=== PATIENT | female | born 1970 | race Caucasian/White ===

== ENCOUNTER 2017-12-02 21:30 | Emergency (ER) | payer OTHER, SELFPAY ==
[2017-12-02 21:31] VITALS: BP 116/80; PULSE 85; RESP 15; TEMP 36.4; BMI 37.2
[2017-12-02 21:52] LABS: Bacteria 0 SEEN /hpf (None Seen); Mucous, Urine 0 SEEN /hpf (<or=2+); Red Blood Cells-Urine 0 SEEN /hpf (0-5); White Blood Cells 0 SEEN /hpf (0-5)
[2017-12-02 21:53] LABS: Color, Urine Straw (Yellow); Glucose, Dipstick Normal (Normal); Ketone-Dipstick Negative (Negative); Leukocyte Esterase-Dipstick 100 /ul (Negative); Nitrite-Dipstick Negative (Negative); Occult Blood-Urine Negative /ul (Negative); Protein-Dipstick Negative (Negative); Urine Bilirubin Dipstick Negative (Negative); Urine Clarity Clear (Clear); Urine Urobilinogen Normal (Normal)
[2017-12-02 22:00] LABS: Squamous Epithelial Cells - UA 0-5 SEEN /hpf (5-10)
[2017-12-02] MEDS: Ondansetron 4 MG/2 ML Vial IV (22:26)
[2017-12-02] MEDS: Ketorolac 30 MG/ML Syringe IV (22:26)
[2017-12-02] MEDS: HYDROmorphone 1 MG/ML Syringe IV (22:29)
--- NOTE | 2017-12-02 23:27 | ED.VISSUMM ---
- ER Visit Summary Date of Service: 12/02/17 Chief Complaint: Left lower back pain located near the posterior iliac spine History of Present Illness: The patient is a 47 F who presents with acute right lower quadrant bowel pain. Upon further questioning she has had mild symptoms for a couple of days. Her and she have been been doing renovation. Today they were scraped on linoleum. She denies any bowel, bladder symptoms. She denies saddle anesthesia or paresthesia. She denies any radicular pain. She denies foot drop. She denies weakness in her thigh muscles. There is no history of direct trauma. Patient denies any fever, chills or night sweats. She denies dysuria, frequency, urgency or hematuria. There is no history of renal ureterolithiasis. She has not noted a rash. She has no contraindication to anti-inflammatory agents. 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 She denies lifting pushing or doing anything strenuous at work. Physical Examination: Patient is a pleasant middle-aged woman who appears uncomfortable. Vital signs are normal and she is afebrile. HEENT exam is unremarkable. Heart is regular without murmur, gallop or rub. S1 and S2 are normal. Lungs are clear to auscultation with good movement of air bilaterally. Abdomen is remarkable for suprapubic discomfort. There is no guarding or rebound tenderness. Well-healed surgical scar secondary to and hysterectomy. Hysterectomy secondary to abnormal vaginal bleeding. There is no CVA tenderness. She has pain palpation near the posterior aspect of the left ilium. Movement i.e. flexion, extension and rotation causes her discomfort. Straightening her legs causes her significant discomfort. Straight leg test is is negative on the right with a negative crossover test. She complains of pain at 10? with elevation of the left lower extremity. Patella and ankle reflexes are 3+ and symmetric. PT and DP pulses are palpable. EHL is intact. There is no clonus or Babinski sign noted. Sensation is normal. Test Results: UA macro was positive for leukoesterase with 0 WBCs, 0 RBCs and 0 bacteria on microscopic analysis. Emergency Department Course and Treatment: IV was established and she was treated with 1 mg of Dilaudid, 30 mg of Toradol and 4 mg of Zofran for reported nausea to opiates. Morphine was not used and she complains of itching. Treatment Plan: Discharge with appropriate home-going instructions for low back pain or muscle skeletal etiology Disposition: Discharge to home with in stable and improved condition Impression: Acute left lower back pain without sciatica initial encounter This note was generated with Jovie dictation software. It may contain incorrect words, spelling, and punctuation that were not noted in review of the chart prior to signing ED Disposition - Plan for ED Patient: Disposition: Home or Assisted Living Chief Complaint: Flank Pain Instructions: ED Exercises Lumbar Muscles Prescriptions: Hydrocodone Bitart/Apap 5-325 [[place] 5MG-325MG] 1 tab PO Q6H PRN PRN 3 Days #10 tab PRN Reason: Pain Referrals: Tequila Lujan MD [Primary Care Provider] - 1 Week if not improving Additional Instructions: Apply ice 6-8 times a day 20-30 minutes at a time for the next 2-3 days. Take either 4 Advil every 8 hours or 2 Aleve every 12 hours for the next 3-5 days for pain control. Heat will make your pain worse.
--- NOTE | 2017-12-02 23:35 | ED.DCSUM_ITS ---
- ER Visit Summary Date of Service: 12/02/17 Chief Complaint: Left lower back pain located near the posterior iliac spine History of Present Illness: The patient is a 47 F who presents with acute right lower quadrant bowel pain. Upon further questioning she has had mild symptoms for a couple of days. Her and she have been been doing renovation. Today they were scraped on linoleum. She denies any bowel, bladder symptoms. She denies saddle anesthesia or paresthesia. She denies any radicular pain. She denies foot drop. She denies weakness in her thigh muscles. There is no history of direct trauma. Patient denies any fever, chills or night sweats. She denies dysuria, frequency , urgency or hematuria. There is no history of renal ureterolithiasis. She has not noted a rash. She has no contraindication to anti-inflammatory agents. 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 She denies lifting pushing or doing anything strenuous at work. Physical Examination: Patient is a pleasant middle-aged woman who appears uncomfortable. Vital signs are normal and she is afebrile. HEENT exam is unremarkable. Heart is regular without murmur, gallop or rub. S1 and S2 are normal. Lungs are clear to auscultation with good movement of air bilaterally. Abdomen is remarkable for suprapubic discomfort. There is no guarding or rebound tenderness. Well-healed surgical scar secondary to and hysterectomy. Hysterectomy secondary to abnormal vaginal bleeding. There is no CVA tenderness. She has pain palpation near the posterior aspect of the left ilium. Movement i.e. flexion, extension and rotation causes her discomfort. Straightening her legs causes her significant discomfort. Straight leg test is is negative on the right with a negative crossover test. She complains of pain at 10? with elevation of the left lower extremity. Patella and ankle reflexes are 3+ and symmetric. PT and DP pulses are palpable. EHL is intact. There is no clonus or Babinski sign noted. Sensation is normal. Test Results: UA macro was positive for leukoesterase with 0 WBCs, 0 RBCs and 0 bacteria on microscopic analysis. Emergency Department Course and Treatment: IV was established and she was treated with 1 mg of Dilaudid, 30 mg of Toradol and 4 mg of Zofran for reported nausea to opiates. Morphine was not used and she complains of itching. Treatment Plan: Discharge with appropriate home-going instructions for low back pain or muscle skeletal etiology Disposition: Discharge to home with in stable and improved condition Impression: Acute left lower back pain without sciatica initial encounter This note was generated with [employer] dictation software. It may contain incorrect words, spelling, and punctuation that were not noted in review of the chart prior to signing ED Disposition - Plan for ED Patient: Disposition: Home or Assisted Living Chief Complaint: Flank Pain Instructions: ED Exercises Lumbar Muscles Prescriptions: Hydrocodone Bitart/Apap 5-325 [[place] 5MG-325MG] 1 tab PO Q6H PRN PRN 3 Days #10 tab PRN Reason: Pain Referrals: Tequila Lujan MD [Primary Care Provider] - 1 Week if not improving Additional Instructions: Apply ice 6-8 times a day 20-30 minutes at a time for the next 2-3 days. Take either 4 Advil every 8 hours or 2 Aleve every 12 hours for the next 3-5 days for pain control. Heat will make your pain worse.
[2017-12-02 23:36] VITALS: BP 118/89; PULSE 85; RESP 16; O2SAT 95
--- NOTE | 2017-12-02 23:49 | ED.RN ---
REVIEWED D/C INSTRUCTIONS, FOLLOW UP CARE, PRESCRIPTION, AND S/S THAT WOULD WARRANT A RETURN TO THE ED WITH PT. PT VERBALIZED AN UNDERSTANDING AND DENIES FURTHER QUESTIONS FOR THIS RN. PT SKIN P/W/D, RESP EVEN AND UNLABORED, PT A&O X 3, NO DISTRESS NOTED. PT AMBULATED OUT OF ED, GAIT STEADY.
== END 2017-12-02 23:50 | disposition home or self-care (01) ==
PROVIDERS: Emergency Provider Emergency Medicine; Family Provider Family Medicine; PCP Family Medicine
DX: M54.5 Low back pain (principal); R11.0 Nausea; Z90.710 Acquired absence of both cervix and uterus
CPT/HCPCS: 81001; 96374; 96375; 99283; A4216; J2405

== ENCOUNTER → 2017-12-03 15:29 | Outpatient (CLI) | payer OTHER, SELFPAY ==
--- NOTE | 2017-12-03 15:38 | CT_ITS ---
STUDY: CT ABDOMEN AND PELVIS WITHOUT CONTRAST REASON FOR EXAM: Female, 47 years old. Left flank pain for 4 days. Prior history of right parotid cancer, left anterior trigeminal neuralgia, hysterectomy and back surgery. RADIATION DOSAGE (If Supplied By Facility): CTDIvol = ( 22.88 ) mGy, DLP = ( 1149.16 ) mGycm TECHNIQUE: Transaxial images were obtained from the dome of the diaphragm to the symphysis pubis without oral contrast, and without intravenous contrast. Sagittal and coronal images were reconstructed. Individualized dose optimization techniques were used for this CT. COMPARISON: None. FINDINGS: Minimal bibasilar linear opacities in small areas of pleural thickening most likely chronic in nature. Negative for major consolidation or pleural effusion. The visualized portions of the heart are within normal limits. Normal liver. Normal gallbladder and extrahepatic biliary system. Normal spleen. Normal pancreas. Normal bilateral adrenal glands. Normal right kidney. Normal left kidney. Normal visualized stomach. Normal small intestine. Normal stool-filled colon. The appendix is visualized and appears normal. Normal abdominal aorta. Normal inferior vena cava. Normal retroperitoneum. Normal nondistended urinary bladder. There is absence of the uterus consistent with a prior hysterectomy. 4.1 x 4.2 x 3.6 cm left ovarian cyst. Normal right ovary. Negative for free fluid. Small fatty umbilical hernia. Normal osseous structures. CT/Abdomen/Pelvis without Cont IMPRESSION: Normal size kidneys bilaterally without hydronephrosis or stones. Unremarkable urinary bladder. 4.1 x 4.2 x 3.6 cm left ovarian cyst. Normal right ovary. Negative for free fluid. Status post hysterectomy. No acute bowel related findings. Negative for evidence of perforation, obstruction or inflammatory bowel changes. Stool-filled colon. Normal appendix. No additional acute abdominal or pelvic findings. Electronically Signed: Helena Bradford MD at 16:18 EST , Service support ,
== END ==
PROVIDERS: Family Provider Family Medicine; PCP Family Medicine; Visit Provider Urology
DX: R10.9 Unspecified abdominal pain (principal)
CPT/HCPCS: 74176

== ENCOUNTER → 2018-03-24 08:05 | Outpatient (CLI) | payer OTHER, SELFPAY ==
--- NOTE | 2018-03-24 08:08 | US_ITS ---
STUDY: ULTRASOUND OF THE FEMALE PELVIS - COMPLETE REASON FOR EXAM: Female, 47 years old. Left ovarian cyst TECHNIQUE: Transabdominal and transvaginal COMPARISON: CT 3.1.18 FINDINGS: The uterus is surgically absent. Normal uterine cervix. Left ovary measures 22 x 15 x 19 mm. Urinary bladder volume is 252 cc. The right ovary are not visualized. There is no free fluid in the pelvis. US/Pelvic (Non ) IMPRESSION: Hysterectomy changes. Nonvisualization of the right ovary. Left ovary is unremarkable.. Electronically Signed: Shlomo Amato MD at 19:28 EDT , Service support ,
--- NOTE | 2018-03-24 08:08 | US_ITS ---
STUDY: ULTRASOUND OF THE FEMALE PELVIS - COMPLETE REASON FOR EXAM: Female, 47 years old. Left ovarian cyst TECHNIQUE: Transabdominal and transvaginal COMPARISON: CT 3.1.18 FINDINGS: The uterus is surgically absent. Normal uterine cervix. Left ovary measures 22 x 15 x 19 mm. Urinary bladder volume is 252 cc. The right ovary are not visualized. There is no free fluid in the pelvis. US/Transvaginal Non- IMPRESSION: Hysterectomy changes. Nonvisualization of the right ovary. Left ovary is unremarkable.. Electronically Signed: Shlomo Amato MD at 19:28 EDT , Service support ,
== END ==
PROVIDERS: Family Provider Family Medicine; PCP Family Medicine; Visit Provider Obstetrics & Gynecology
DX: N83.209 Unspecified ovarian cyst, unspecified side (principal)
CPT/HCPCS: 76830; 76856; 93976

== ENCOUNTER → 2018-05-13 16:00 | Outpatient (CLI) | payer OTHER, SELFPAY ==
--- NOTE | 2018-05-13 16:00 | RAD_ITS ---
STUDY: X-RAY CHEST REASON FOR EXAM: Female, 47 years old. Cough. TECHNIQUE: PA and lateral views of the chest. COMPARISON: None. FINDINGS: The lungs are clear and expanded. There is no demonstrated pleural abnormality. Normal size heart. Normal mediastinum and denae. Normal visualized pulmonary arteries. Normal visualized aortic arch and descending thoracic aorta. Normal visualized thoracic spine. Normal visualized ribs, clavicles, and shoulders. There is no demonstrated abnormality of the visualized soft tissue structures of the upper abdomen. RAD/Chest PA and Lateral IMPRESSION: No acute cardiopulmonary disease. Electronically Signed: Martin Machado DO at 23:50 EDT Tel [phone], Service support ,
== END ==
PROVIDERS: Family Provider Family Medicine; PCP Family Medicine; Visit Provider Family Medicine
DX: R05 Cough (principal)
CPT/HCPCS: 71046

== ENCOUNTER 2018-07-06 09:27 | Outpatient (RCR) | payer OTHER, SELFPAY ==
--- NOTE | 2018-07-06 11:01 | MASS.EVAL_ITS ---
Massage Therapy Evaluation: Initial Evaluation Date: 07/06/2018 SUBJECTIVE: Marbella is a 47 year old female who was referred to the [facility] facility for a massotherapy evaluation by Dr Lujan with the diagnosis of muscle pain and myalgia. Marbella presents today with the symptoms of tension and pain in her neck and shoulder area. OBJECTIVE: Upon observation Marbella has poor posture in sitting and standing. After examination and palpation I found Cary to have very high muscle tension with tenderness and myofascial restrictions in her sub occipitals, levator scapulae, trapezius, rhomboids, and thoracic paraspinals. The first treatment consisted of a one hour massage to her upper body with myofascial release, muscle stripping, trigger point compression techniques, and cervical manual traction. ASSESSMENT: I feel that Marbella is a good candidate for massotherapy at this time. She had a favorable response to the first treatment with reduction in her muscle aches, pain and tension. PLAN: The plan of care was reviewed with the patient. The patient is to be seen on as needed basis for a total of ten sessions with the recommendation of once every two weeks for a one hour treatment. Mariam Lau LMT
--- NOTE | 2018-09-14 10:59 | DS.PCM_ITS ---
Massage Therapy Discharge Summary: Discharge Date: 09/14/2018 Marbella was seen for a massotherapy evaluation on 07/06/2018 with the diagnosis of muscle strain. She was treated with one session of massage therapy consisting of moderate pressure soft tissue techniques, myofascial release and trigger point compression to her neck, shoulders, thoracic and lower back. Marbella responded well to the massage treatment, though she was only able to schedule one treatment for the year. At this time I am discharging her from the [facility] facility.
== END 2018-07-06 19:00 | disposition home or self-care (01) ==
LOC: MASS 09:27
PROVIDERS: Family Provider Family Medicine; PCP Family Medicine; Visit Provider Family Medicine
DX: M79.10 Myalgia, unspecified site (principal)
CPT/HCPCS: 97124

== ENCOUNTER → 2018-09-09 15:22 | Outpatient (CLI) | payer OTHER, SELFPAY ==
--- NOTE | 2018-09-09 15:37 | MRI_ITS ---
STUDY: MRI LEFT REARFOOT WITHOUT CONTRAST REASON FOR EXAM: Female, 48 years old. Plantar fascial fibromatosis. Heel pain. TECHNIQUE: Standardized fat and water weighted pulse sequences were obtained in all 3 orthogonal planes. COMPARISON: None. FINDINGS: Normal subcutis adipose space. Normal posterior tibialis tendon. Normal flexor digitorum longus tendon. Normal flexor hallucis longus tendon. There is tendinosis with flattening of the peroneus brevis tendon within the retromalleolar groove with tenosynovitis. Normal tibialis anterior tendon. Normal extensor hallucis longus tendon. Normal extensor digitorum longus tendons. Normal Achilles tendon and teno-osseous insertion. There is a plantar fasciitis with plantar fascial thickening and fascial edema, but without a focal tear. There is a 0.5 cm nodular thickening of the plantar fascia, 1.2 cm distal to the origin, series 10 image 23. There is a plantar calcaneal spur with cancellous marrow edema consistent with a marrow stress phenomena, series 4 image /. Normal intrinsic muscles of the rearfoot. Normal distal tibiofibular syndesmotic ligamentous complex. Normal lateral ligamentous complex. Normal subtalar ligaments and sinus tarsi. Normal deltoid ligamentous complexes. Normal plantar calcaneonavicular (spring) ligament. Normal tibiotalar articulation. There is subchondral edema of the talar dome. Normal subtalar articulations. Normal talonavicular articulation. Normal calcaneocuboid articulation. Normal navicular-cuneiform articulations. There is edema of the middle cuneiform, series 4 image /. MRI/Lower Ext/No Jt/w/o IMPRESSION: Plantar fasciitis. There is focal nodular thickening consistent with fibroma. Plantar heel spur with edema and stress injury. Bone bruise or stress injury of the middle cuneiform. Electronically Signed: Tavares Esquivel MD at 10:28 EST , Service support ,
== END ==
PROVIDERS: Family Provider Family Medicine; PCP Family Medicine; Referring Provider Podiatrist Foot & Ankle Surgery; Visit Provider Podiatrist Foot & Ankle Surgery
DX: M79.672 Pain in left foot (principal); M24.572 Contracture, left ankle
CPT/HCPCS: 73718

== ENCOUNTER → 2018-09-20 10:34 | Outpatient (CLI) | payer OTHER, SELFPAY ==
[2018-09-20 12:07] LABS: Hemoglobin A1c 5.2 % (4.2-6.3)
[2018-09-20 12:09] LABS: Progesterone Level 0.27 ng/mL (See Comment); Thyroid Stim Hormone (TSH) 1.34 uIU/mL (0.358-3.74)
--- OUTSIDE RECORDS SUMMARY | 2018-12-22 23:36 | XMS RPT_ITS ---
:1970 Author Organization [place] Support Name Relationship Address Phone HOMERO STEELE Unavailable [address] + [place] [address] [facility] Un[address] + [place] [address] HOMERO STEELE Unavailable [address] + [place] [address] [facility] Unavailable [address] + [place] [address] HOMERO STEELE Unavailable [address] + [place] [address] [facility] Unavailable [address] + [place] [address] HOMERO STEELE Unavailable [address] + [place] [address] [facility] Unavailable [address] + [place] [address] HOMERO STEELE Unavailable [address] + [place] [address] [facility] Unavailable [address] + [place] [address] HOMERO STEELE Unavailable [address] + [place] [address] [facility] Unavailable [address] + [place] [address] HOMERO STEELE Unavailable [address] + [place] [address] [facility] Unavailable [address] + [place] [address] HOMERO STEELE Unavailable [address] + [place] [address] [address] Un[address] + [place] [address] HOMERO STEELE Unavailable [address] + [place] [address] [facility] Unavailable [address] + [place] [address] HOMERO STEELE Unavailable [address] + [place] [address] Un[address] + [place] [address] HOMERO STEELE Unavailable [address] [facility] [address] + [place] [address] [facility] Unavailable [address] + [place] [address] Care Team Providers Name Role Phone RADHA WILCOX Attending Unavailable RADHA WILCOX Referring Unavailable Tequila Lujan Attending Unavailable Tequila Lujan Primary Care Unavailable Tequila Lujan Attending Unavailable Tequila Lujan Primary Care Unavailable Tequila Lujan Admitting Unavailable Tequila Lujan Attending Unavailable Tequila Lujan Primary Care Unavailable Tequila Lujan Admitting Unavailable Rae Conde Attending Unavailable Rae Conde Referring Unavailable Tequila Lujan Primary Care Unavailable Tequila Lujan Attending Unavailable Tequila Lujan Primary Care Unavailable Randolph Bella Attending Unavailable Tequila Lujan Referring Unavailable Tequila Lujan Primary Care Unavailable Tequila Lujan Primary Care Unavailable Maco Adorno Attending Unavailable Caesar Smiley Attending Unavailable Caesar Smiley Referring Unavailable Tequila Lujan Primary Care Unavailable Rae Conde Attending Unavailable Tequila Lujan Primary Care Unavailable ASSESSMENT, HEALTH RISK Attending Unavailable ASSESSMENT, HEALTH RISK Referring Unavailable Tequila Lujan Primary Care Unavailable Tequila Lujan Attending Unavailable Tequila Lujan Referring Unavailable Tequila Lujan Primary Care Unavailable Tequila Lujan Attending Unavailable Tequila Lujan Referring Unavailable Tequila Lujan Primary Care Unavailable Shraddha Conte Attending Unavailable Shraddha Conte Referring Unavailable Tequila Lujan Primary Care Unavailable Rae Conde Attending Unavailable Tequila Lujan Primary Care Unavailable Rae Conde Referring Unavailable PROBLEMS PROBLEMS DATE TYPE CONDITION / CODE ATTENDING STATUS SOURCE 09/15/2018 Unknown M79.10 - Tai Wynne Julie O Active [place] unspecified site Community / M79.10(ICD-10) Hospital Repository 05/13/2018 Unknown R05 - Cough / Tequila Lujan Active [place] R05(ICD-10) [facility] [place] Repository 12/03/2017 Unknown M54.5 - Low back Adorno, Maco Active [place] pain / Community M54.5(ICD-10) Hospital Repository PROCEDURES PROCEDURES No Procedure Records FoundRESULTS RESULTS TRANSVAGINAL Observed: 09/23/2018 Status: F Source: [place] NON- 12:00 PM [facility] REPOSITORY [facility] Imaging Services [address] [place] [address] Transvaginal Non- MR#: [id number] Acct: [id number] Name: BRISSA STEELE Rep #: [id number] : 1970 F 48 From: Godwin Nur MD PCP: Tequila Lujan MD Status: REG CLI Study: Transvaginal Non- Date of Exam: 09/23/18 Exam# [id number] Ordering Dr: Rae Conde MD STUDY: ULTRASOUND TRANSVAGINAL CLINICAL: Female, 48 years old. Left lower quadrant pain. TECHNIQUE: Transvaginal COMPARISON: 03/24/2018 FINDINGS: Uterus is surgically absent. Right ovary is not visualized. Normal left ovary, measuring 3.4 x 3.5 x 4.2 cm. Anechoic cyst of the left ovary measures 3.3 x 3.0 x 3.1 cm without demonstrated solid component or septation. There is no free fluid in the pelvis. US/Transvaginal Non- IMPRESSION: 1. 3.3 cm simple left ovarian cyst, new since prior study. 2. No pelvic free fluid. 3. Uterus and right ovary not visualized. Electronically Signed: Godwin Nur MD at 9:12 EST , Service support , CC: Tequila Lujan MD; Rae Conde MD Microfilm Duplicating Unit Supervisor: Signed HEMOGLOBIN A1C Collected: 09/20/2018 Status: F Source: [place] 10:37 AM [facility] REPOSITORY TYPE CODE TESTS RESULT OUT OF RANGE REFERENCE UNITS LAB L501.9985 4.2-6.3 % Normal HGB A1C 5.2 Performed By: #### L501.9985 #### [facility] [address] [place], [place], [address] THYROID STIM HORMONE Collected: 09/20/2018 Status: F Source: [place] (TSH) 10:37 AM [facility] REPOSITORY TYPE CODE TESTS RESULT OUT OF RANGE REFERENCE UNITS LAB L501.9520 0.358-3.74 uIU/mL Normal TSH 1.34 Performed By: #### L501.9520, L3300.1750 #### [facility] [address] [place], [place], [address] ESTRADIOL Collected: 09/20/2018 Status: F Source: [place] 10:37 AM [facility] REPOSITORY TYPE CODE TESTS RESULT OUT OF RANGE REFERENCE UNITS LAB L3300.1750 pg/mL Normal ESTRADIOL 339.0 Result Comment: NORMAL REFERENCE RANGES FEMALE FOLLICULAR 21.4 - 164.8 pg/mL MID-CYCLE PEAK 49.9 - 367.2 pg/mL LUTEAL 40.2 - 259.0 pg/mL POST-MENOPAUSAL ON MHT <11.0 - 462.1 pg/mL NOT ON MHT <11.0 - 58.3 pg/mL MALE <11.0 - 52.5 pg/mL NOTE: [facility] HAS CONFIRMED THE DRUG FULVETRANT (FASLODEX) MAY CAUSE FALSELY ELEVATED ESTRADIOL RESULTS WHEN USING THIS TEST METHOD. IF PATIENT IS TAKING FULVESTRANT AN ALTERNATIVE METHOD SHOULD BE USED TO DETERMINE ESTRADIOL CONCENTRATION. Performed By: #### L501.9520, L3300.1750 #### [facility] [address] [place], [address] PROGESTERONE LEVEL Collected: 09/20/2018 Status: F Source: [place] 10:37 AM [facility] REPOSITORY TYPE CODE TESTS RESULT OUT OF REFERENCE UNITS RANGE LAB L509.4001 See Comment ng/mL Progesterone Normal 0.27 Result Comment: Progesterone Reference Table: UNITS Female: Follicular 0.15 - 1.40 ng/mL Luteal 3.34 - 25.56 ng/mL Mid-luteal 4.44 - 28.03 ng/mL Postmenopausal 0.0 - 0.73 ng/mL : 1st Trimester 11.22 - 90.00 ng/mL 2nd Trimester 25.55 - 89.40 ng/mL 3rd Trimester 48.40 -422.50 ng/mL Performed By: #### L509.4001 #### [facility] [address] [facility] [place], [address] DISCHARGE SUMMARY Observed: 09/15/2018 Status: F Source: [place] 1:03 PM [facility] REPOSITORY [facility] Medical Records Department [address] [place], [place] [address] [address] Discharge Summary 09/14/18 1058 MR#: [id number] Acct: [id number] Name: BRISSA STEELE Rep #: [id number] : 1970 48 From: Mariam Lau PCP: Tequila Lujan MD Status: REG RCR Y Location: [facility] Massage Therapy Discharge Summary: Discharge Date: 09/14/2018 Brissa was seen for a massotherapy evaluation on 07/06/2018 with the diagnosis of muscle strain. She was treated with one session of massage therapy consisting of moderate pressure soft tissue techniques, myofascial release and trigger point compression to her neck, shoulders, thoracic and lower back. Brissa responded well to the massage treatment, though she was only able to schedule one treatment for the year. At this time I am discharging her from the [facility] facility. 09/15/18 1303 <Electronically signed by Mariam Lau > Date Mariam Lau Cosigner Signature (if applicable): Date CC: Mariam Lau; Tequila Lujan MD Signed MASSAGE THERAPY Observed: 09/15/2018 Status: F Source: [place] EVALUATION 1:03 PM [facility] REPOSITORY [facility] [address] [place] [address] Fax REHABILITATION SERVICES INITIAL EVALUATION MR#: [id number] Acct: [id number] Name: BRISSA STEELE Rep #: [id number] : 1970 47 From: Mariam Lau Referring Dr.: Tequila Lujan MD Status: REG RCR Insurance: [facility] SELF PAY INSURANCE Massage Therapy Evaluation: Initial Evaluation Date: 07/06/2018 SUBJECTIVE: Brissa is a 47 year old female who was referred to the [facility] facility for a massotherapy evaluation by Dr Lujan with the diagnosis of muscle pain and myalgia. Brissa presents today with the symptoms of tension and pain in her neck and shoulder area. OBJECTIVE: Upon observation Brissa has poor posture in sitting and standing. After examination and palpation I found Cary to have very high muscle tension with tenderness and myofascial restrictions in her sub occipitals, levator scapulae, trapezius, rhomboids, and thoracic paraspinals. The first treatment consisted of a one hour massage to her upper body with myofascial release, muscle stripping, trigger point compression techniques, and cervical manual traction. ASSESSMENT: I feel that Brissa is a good candidate for massotherapy at this time. She had a favorable response to the first treatment with reduction in her muscle aches, pain and tension. PLAN: The plan of care was reviewed with the patient. The patient is to be seen on as needed basis for a total of ten sessions with the recommendation of once every two weeks for a one hour treatment. Mariam Lau LMT <Electronically signed by Mariam Lau > 09/15/18 1303 CC: Tequila Lujan MD HIMANSHU Signed LOWER EXT/NO JT/W/O Observed: 09/09/2018 Status: F Source: [place] 3:37 PM [facility] REPOSITORY [facility] Imaging Services [address] [place] [address] Lower Ext/No Jt/w/o MR#: [id number] Acct: [id number] Name: BRISSA STEELE Rep #: [id number] : 1970 F 48 From: Tavares Esquivel MD PCP: Tequila Lujan MD Status: REG CLI Study: Lower Ext/No Jt/w/o Date of Exam: 09/09/18 Exam# [id number] Ordering Dr: Shraddha Conte DP STUDY: MRI LEFT REARFOOT WITHOUT CONTRAST REASON FOR EXAM: Female, 48 years old. Plantar fascial fibromatosis. Heel pain. TECHNIQUE: Standardized fat and water weighted pulse sequences were obtained in all 3 orthogonal planes. COMPARISON: None. FINDINGS: Normal subcutis adipose space. Normal posterior tibialis tendon. Normal flexor digitorum longus tendon. Normal flexor hallucis longus tendon. There is tendinosis with flattening of the peroneus brevis tendon within the retromalleolar groove with tenosynovitis. Normal tibialis anterior tendon. Normal extensor hallucis longus tendon. Normal extensor digitorum longus tendons. Normal Achilles tendon and teno-osseous insertion. There is a plantar fasciitis with plantar fascial thickening and fascial edema, but without a focal tear. There is a 0.5 cm nodular thickening of the plantar fascia, 1.2 cm distal to the origin, series 10 image 23. There is a plantar calcaneal spur with cancellous marrow edema consistent with a marrow stress phenomena, series 4 image 08/26. Normal intrinsic muscles of the rearfoot. Normal distal tibiofibular syndesmotic ligamentous complex. Normal lateral ligamentous complex. Normal subtalar ligaments and sinus tarsi. Normal deltoid ligamentous complexes. Normal plantar calcaneonavicular (spring) ligament. Normal tibiotalar articulation. There is subchondral edema of the talar dome. Normal subtalar articulations. Normal talonavicular articulation. Normal calcaneocuboid articulation. Normal navicular-cuneiform articulations. There is edema of the middle cuneiform, series 4 image /. MRI/Lower Ext/No Jt/w/o IMPRESSION: Plantar fasciitis. There is focal nodular thickening consistent with fibroma. Plantar heel spur with edema and stress injury. Bone bruise or stress injury of the middle cuneiform. Electronically Signed: Tavares Esquivel MD at 10:28 EST , Service support , CC: BARRON Conte; Tequila Lujan MD Microfilm Duplicating Unit Supervisor: Signed CHEST PA AND LATERAL Observed: 05/13/2018 Status: F Source: [place] 4:02 PM [facility] REPOSITORY [facility] Imaging Services [address] [place] [address] [place] [address] Chest PA and Lateral MR#: [id number] Acct: [id number] Name: BRISSA STEELE Rep #: [id number] : 1970 F 47 From: Martin Machado DO PCP: Tequila Lujan MD Status: REG CLI Study: Chest PA and Lateral Date of Exam: 05/13/18 Exam# [id number] Ordering Dr: Tequila Lujan MD STUDY: X-RAY CHEST REASON FOR EXAM: Female, 47 years old. Cough. TECHNIQUE: PA and lateral views of the chest. COMPARISON: None. FINDINGS: The lungs are clear and expanded. There is no demonstrated pleural abnormality. Normal size heart. Normal mediastinum and denae. Normal visualized pulmonary arteries. Normal visualized aortic arch and descending thoracic aorta. Normal visualized thoracic spine. Normal visualized ribs, clavicles, and shoulders. There is no demonstrated abnormality of the visualized soft tissue structures of the upper abdomen. RAD/Chest PA and Lateral IMPRESSION: No acute cardiopulmonary disease. Electronically Signed: Martin Machado DO at 23:50 EDT Tel [phone], Service support , CC: Tequila Lujan MD Microfilm Duplicating Unit Supervisor: Signed CBC, EMPLOYEE Collected: 05/11/2018 Status: F Source: [place] 5:53 AM [facility] REPOSITORY TYPE CODE TESTS RESULT OUT OF RANGE REFERENCE UNITS LAB L100.1000 4.4-11.0 K/mm3 Normal WBC 6.4 LAB L100.1200 4.2-5.4 M/mm3 Normal RBC 4.25 LAB L100.1300 12.0-15.0 g/dl Normal HGB 12.9 LAB L100.1400 37-47 % Normal HCT 38.7 LAB L100.1500 81-99 fL Normal MCV 91.1 LAB L100.1600 27.0-32.0 pg Normal MCH 30.4 LAB L100.1700 32-36 g/gl Normal MCHC 33.3 LAB L100.1810 11.6-14.6 % Normal RDW CV 13.5 LAB L100.1820 35.1-43.9 fl High RDW SD 44.7 LAB L100.1900 150-450 K/mm3 Normal PLT 207 LAB L100.2000 6.2-12.0 fl Normal MPV 11.5 LAB L100.2110 47-70 % Normal NEUT% 66.2 LAB L100.2210 19-41 % Normal LY% 23.6 LAB L100.2310 0-10 % Normal MONO% 8.0 LAB L100.2410 0-5 % Normal EO% 1.7 LAB L100.2510 0-1 % Normal BASO% 0.3 LAB L100.2620 2.0-7.7 X10 3/uL Normal Absolute Neut 4.2 LAB L100.2720 0.83-4.51 X10 3/ul Normal Absolute Lymph 1.50 Performed By: #### L100.0200 #### [facility] [address] [place], [place], [address] NICOTINE URINE DRUG Collected: 05/11/2018 Status: F Source: [place] SCREEN 5:53 AM [facility] REPOSITORY TYPE CODE TESTS RESULT OUT OF RANGE REFERENCE UNITS LAB L505.6250 TO BE Normal CONFIRMED Result Comment: CONFIRMATORY TESTING FOR ALL POSITIVE URINE DRUG SCREEN RESULTS WILL ONLY BE SENT OUT UPON PHYSICIAN ORDER. The results of Urine Drug Screen methods provide only preliminary analytical test results. A more specific alternate chemical method must be used in order to obtain a confirmed analytical result. Gas chromatography/mass spectrometery (GC/MS) is the preferred confirmatory method. Clinical consideration and professional judgement should be applied to any drug of abuse test result, particularly when preliminary positive results are used. LAB L505.6270 <200 ng/mL Normal COT DRG Negative SCREEN Result Comment: Cotinine is the first-stage metabolite of Nicotine. Performed By: #### L505.6240 #### [facility] [address] [place], [address] EMPLOYEE PROFILE Collected: 05/11/2018 Status: F Source: [place] 5:53 AM [facility] REPOSITORY TYPE CODE TESTS RESULT OUT OF RANGE REFERENCE UNITS LAB L501.0100 74-106 mg/dL Normal GLU 80 Result Comment: Please note revised GLUCOSE reference range effective 2017. LAB L501.1000 7-18 mg/dL Normal BUN 11 LAB L501.1100 0.55-1.02 mg/dL Normal CREAT,SERUM 0.72 Result Comment: The validity of the calculated GFR AND GFRAA in patients over 70 years has not been determined. Clinical correlation is essential. LAB L501.1110 >60 mL/min Normal EST GFR 93 Result Comment: Non- GFR Calc LAB L501.1115 >60 mL/min Normal EST GFR - AA 113 Result Comment: GFR Calc LAB L501.1300 10-20 RATIO Normal BUN/CRE 15.4 LAB L501.1400 2.6-6.0 mg/dL Normal URIC 3.4 Result Comment: The drugs N-Acetylcysteine and Metamizole may falsely depress this assay. LAB L501.1500 6.4-8.2 g/dL Normal T PROT 6.8 LAB L501.1800 3.2-5.0 g/dL Normal ALB 3.5 LAB L501.1950 2.2-4.2 g/dL Normal GLOB 3.3 LAB L501.2000 0.9-2.4 RATIO Normal A/G 1.1 LAB L501.2200 8.5-10.1 mg/dL Normal CA 8.8 LAB L501.2300 2.5-4.9 mg/dL Normal PHOS 4.3 LAB L501.4100 15-37 U/L Normal AST 17 LAB L501.4305 45-117 U/L Normal ALK P 79 LAB L501.4405 13-56 U/L Normal ALT 21 LAB L501.4600 0.20-1.00 mg/dL Normal T BILI 0.20 LAB L501.4700 0.00-0.30 mg/dL Normal D < BILI 0.05 LAB L501.4900 200 mg/dL Normal CHOL 151 Result Comment: <200 mg/dL Desirable 200-240 mg/dL Borderline >240 mg/dL High Risk LAB L501.5000 mg/dL Normal TRIG 114 Result Comment: The drugs N-Acetylcysteine and Metamizole may falsely depress this assay. Serum Triglycerides Reference Interval Normal <150 mg/dL Borderline high 150 - 199 mg/dL High 200 - 499 mg/dL Very High > or = 500 mg/dL LAB L501.5300 136-145 mmol/L Normal NA 143 LAB L501.5600 3.5-5.1 mmol/L Normal K 3.5 LAB L501.5900 98-107 mmol/L Normal CL 106 LAB L501.6100 21.0-32.0 mmol/L Normal CO2 28.0 LAB L501.6200 5-15 Normal 9 GAP LAB L501.6400 mg/dL Normal HDL 46 Result Comment: The drugs N-Acetylcysteine and Metamizole may falsely depress this assay. Reference Range HDL <40 mg/dL Low HDL Cholesterol HDL >or= 60 mg/dL High HDL Cholesterol LAB L501.6475 Normal CHOL:HDL 3.30 LAB L501.6500 0-130 mg/dL Normal LDL 82 LAB L501.6600 5-40 mg/dL Normal VLDL 23 LAB L504.2610 84-246 U/L Normal LDH 176 Performed By: #### L500.2900 #### [facility] [address] [place], [place], [id number] URINALYSIS, EMPLOYEE Collected: 05/11/2018 Status: F Source: [place] 5:53 AM [facility] REPOSITORY TYPE CODE TESTS RESULT OUT OF RANGE REFERENCE UNITS LAB L400.3000 Yellow COLOR Normal Yellow LAB L400.3050 Clear Normal CLARITY Sl. Cloudy LAB L400.3200 Normal mg/dl Normal GLUCOSE, UR Normal LAB L400.3300 Negative mg/dL Normal BILIRUBIN URINE Negative LAB L400.3400 Negative mg/dl Normal KETONE UR Negative LAB L400.3465 1.002-1.030 Normal SP.GR. DIPSTX 1.010 LAB L400.3550 5.0 - 8.0 pH UR Normal 6.0 LAB L400.3600 Negative mg/dl PROT Normal DIPSTX Negative LAB L400.3700 Normal mg/dl Normal UROBILI Normal LAB L400.3750 Negative Normal NITRITE UR Negative LAB L400.3780 Negative /ul Normal OCCULT BLOOD-UR Negative LAB L400.3800 Negative /ul High LEUK ESTERASE 500 Performed By: #### L400.0100 #### [facility] [address] [place], [address] PELVIC (NON ) Observed: 03/24/2018 Status: F Source: [place] 8:08 AM [facility] REPOSITORY [facility] Imaging Services [address] [place] [address] Pelvic (Non ) MR#: [id number] Acct: [id number] Name: BRISSA STEELE Rep #: [id number] : 1970 F 47 From: Shlomo Amato MD PCP: Tequila Lujan MD Status: REG CLI Study: Pelvic (Non ) Date of Exam: 03/24/18 Exam# [id number] Ordering Dr: Rae Conde MD STUDY: ULTRASOUND OF THE FEMALE PELVIS - COMPLETE REASON FOR EXAM: Female, 47 years old. Left ovarian cyst TECHNIQUE: Transabdominal and transvaginal COMPARISON: CT 3.18 FINDINGS: The uterus is surgically absent. Normal uterine cervix. Left ovary measures 22 x 15 x 19 mm. Urinary bladder volume is 252 cc. The right ovary are not visualized. There is no free fluid in the pelvis. US/Pelvic (Non ) IMPRESSION: Hysterectomy changes. Nonvisualization of the right ovary. Left ovary is unremarkable.. Electronically Signed: Shlomo Amato MD at 19:28 EDT , Service support , CC: Tequila Lujan MD; Rae Conde MD Microfilm Duplicating Unit Supervisor: Signed TRANSVAGINAL Observed: 03/24/2018 Status: F Source: [place] NON- 8:08 AM [facility] REPOSITORY [facility] Imaging Services [address] [place] [address] Transvaginal Non- MR#: [id number] Acct: [id number] Name: BRISSA STEELE Rep #: [id number] : 1970 F 47 From: Shlomo Amato MD PCP: Tequila Lujan MD Status: REG CLI Study: Transvaginal Non- Date of Exam: 03/24/18 Exam# [id number] Ordering Dr: Rae Conde MD STUDY: ULTRASOUND OF THE FEMALE PELVIS - COMPLETE REASON FOR EXAM: Female, 47 years old. Left ovarian cyst TECHNIQUE: Transabdominal and transvaginal COMPARISON: CT 3.1.18 FINDINGS: The uterus is surgically absent. Normal uterine cervix. Left ovary measures 22 x 15 x 19 mm. Urinary bladder volume is 252 cc. The right ovary are not visualized. There is no free fluid in the pelvis. US/Transvaginal Non- IMPRESSION: Hysterectomy changes. Nonvisualization of the right ovary. Left ovary is unremarkable.. 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 CRPS Type I Reports that following Botox injection--she has local inflammatory reaction in right face that lasts several days. Agreeable to trial of Prednisolone taper around time of Botox injection to minimize this reaction. Response to Treatment: Total facial pain days per month: 30 Severity of pain: Mild with use of Botox Consistently Severe without Botox. Botox effective: Yes, she reports that she has had a 75+% improvement in her pain severity. Average severity prior to Botox: 9-10/10 Averages severity after Botox: 2-3/10. Severe Pain Days per Month Prior to Botox: 30/30 Severe Pain Days per Month After Botox: 10/30 days. The risks, benefits and anticipated outcomes of the procedure, the risks and benefits of the alternatives to the procedure, and the roles and tasks of the personnel to be involved, were discussed with the patient, and the patient consents to the procedure and agrees to proceed. Informed consent signed. UNIVERSAL PROTOCOL / SAFETY CHECKLIST Procedure to be performed: BOTOX Sign in Communication: Completed Time Out: Team Confirms the Correct Patient, Correct Procedure, Correct Site and Site Marking, Correct Position (if applicable). Time: 12:49 PM Affirmation of Time Out: N/A Sign Out Discussion: Completed Radha Wilcox MD January 07, 2018 12:49 PM 200 units of Botox A (lot # [id number],expiration date JUL 2020) was diluted in 4.1cc normal saline. Injection Sites Muscle Fixed Site/Fixed Dose Loss Prevention Associate 10 U divided in 2 sites on right Procerus 5 U in 1 site Frontalis 30 U divided in 2 sites on right Temporalis 50 U divided in 5 sites on right DON 15 u on right DELVIN 20 U divided in 2 sites bilaterally V3 region on right 50 u divided in 8 sites on right V2 region on right 20 u divided in 4 sites on right Total 200 units Total Units used: 200 Total Units wasted: 0 Patient tolerated the procedure. Change in treatment plan: yes ? Increase venlafaxine sr to 150 mg po daily; ? Trial of PRED-PACK (48 tabs) PO following injections to reduce local inflammatory reaction. Return to Clinic in 3 mos. 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 CRPS Type I Reports that following Botox injection--she has local inflammatory reaction in right face that lasts several days. Agreeable to trial of Prednisolone taper around time of Botox injection to minimize this reaction. Response to Treatment: Total facial pain days per month: 30 Severity of pain: Mild with use of Botox Consistently Severe without Botox. Botox effective: Yes, she reports that she has had a 75+% improvement in her pain severity. Average severity prior to Botox: 9-10/10 Averages severity after Botox: 2-3/10. Severe Pain Days per Month Prior to Botox: 30/30 Severe Pain Days per Month After Botox: 10/30 days. The risks, benefits and anticipated outcomes of the procedure, the risks and benefits of the alternatives to the procedure, and the roles and tasks of the personnel to be involved, were discussed with the patient, and the patient consents to the procedure and agrees to proceed. Informed consent signed. UNIVERSAL PROTOCOL / SAFETY CHECKLIST Procedure to be performed: BOTOX Sign in Communication: Completed Time Out: Team Confirms the Correct Patient, Correct Procedure, Correct Site and Site Marking, Correct Position (if applicable). Time: 12:49 PM Affirmation of Time Out: N/A Sign Out Discussion: Completed Radha Wilcox MD January 07, 2018 12:49 PM 200 units of Botox A (lot # [id number],expiration date JUL 2020) was diluted in 4.1cc normal saline. Injection Sites Muscle Fixed Site/Fixed Dose Loss Prevention Associate 10 U divided in 2 sites on right Procerus 5 U in 1 site Frontalis 30 U divided in 2 sites on right Temporalis 50 U divided in 5 sites on right DON 15 u on right DELVIN 20 U divided in 2 sites bilaterally V3 region on right 50 u divided in 8 sites on right V2 region on right 20 u divided in 4 sites on right Total 200 units Total Units used: 200 Total Units wasted: 0 Patient tolerated the procedure. Change in treatment plan: yes ? Increase venlafaxine sr to 150 mg po daily; ? Trial of PRED-PACK (48 tabs) PO following injections to reduce local inflammatory reaction. Return to Clinic in 3 mos. Radha Wilcox MD January 07, 2018 1:16 PM Referring Provider: RADHA WILCOX [[id number]] Allergies As of Date: 01/07/2018 (Not on File) Date Reviewed: 01/07/2018 Reviewed by: Rosi Gee - Fully Assessed Reason for Visit: Botox Injection [373] Primary Visit Diagnosis:Trigeminal neuropathy [G50.9] Other Visit Diagnoses:Auriculo-temporal syndrome [G50.8] Complex regional pain syndrome type 1 affecting other site [G90.59] Order(s):onabotulinum toxin type A 200 Units injection (BOTOX)Disp: Rfl: prednisoLONE 5 mg (48 tabs) DsPkTake as directed in dose pack.Disp: 48 tabletRfl: 0 venlafaxine ER (EFFEXOR XR) 150 mg 24 hr capsuleTake 1 capsule by mouth once daily.Disp: 90 capsuleRfl: 3 Prescriptions as of 01/07/2018 Sig: PREDNISOLONE 5 MG (48 TABS) T* Take as directed in dose pack. VENLAFAXINE ER 150 MG CAPSULE* Take 1 capsule by mouth once * PREGABALIN 150 MG CAPSULE Take 1 capsule by mouth once * PREGABALIN 50 MG CAPSULE Take 1 capsule by mouth daily* CARBAMAZEPINE ER 200 MG TABLE* Take 200 mg by mouth. LANSOPRAZOLE 30 MG CAPSULE,DE* Take 30 mg by mouth. MEXILETINE 150 MG CAPSULE Take 150 mg by mouth. CARBAMAZEPINE ER 200 MG CAPSU* Take 1 capsule by mouth twice* IBUPROFEN 200 MG CAPSULE Take 800 mg by mouth twice da* LANSOPRAZOLE 30 MG DELAYED RE* Take 30 mg by mouth once shadi* Problem List As Of Date 01/07/2018 Noted Resolved Facial pain [R51] INVALID FOR* Neuritis [M79.2] INVALID FOR* Auriculo-temporal syndrome [G50.8] INVALID FOR* Right calf pain [M79.661] INVALID FOR* Complex regional pain syndrome type 1 [G90.50] INVALID FOR* Anxiety [F41.9] INVALID FOR* Prescriptions ordered this encounter Disp Refills Start End ONABOTULINUMTOXINA 100 UNIT SOLUTION* 01/07/2018 01/08/2018 Route: INTRADERM. PREDNISOLONE 5 MG (48 TABS) TABLETS * 48 t* 0 01/07/2018 Sig: Take as directed in dose pack. VENLAFAXINE ER 150 MG CAPSULE,EXTEND* 90 c* 3 01/07/2018 Route: ORAL Sig: Take 1 capsule by mouth once daily. Medications Discontinued During This Encounter venlafaxine ER (EFFEXOR XR) 75 mg 24* 90 c* 3 04/22/2017 01/07/2018 Route: ORAL Sig: Take 1 capsule by mouth once daily. Disc: Reason for discontinue is not on file. venlafaxine ER (EFFEXOR XR) 37.5 mg * 90 c* 3 04/22/2017 01/07/2018 Cmt: Take with venlafaxine er 75 mg capsule: Total daily dose is 112.5 mg po daily. Route: ORAL Sig: Take 1 capsule by mouth once daily. Disc: Reason for discontinue is not on file. Encounter Status:Closed by RADHA WILCOX MD on 01/07/18 ABDOMEN/PELVIS WITHOUT Observed: 12/03/2017 Status: F Source: BLANDON CONT 3:38 PM [facility] REPOSITORY [facility] Imaging Services [address] [place] [address] Abdomen/Pelvis without Cont MR#: [id number] Acct: [id number] Name: BRISSA STEELE Rep #: [id number] : 1970 F 47 From: Helena Bradford MD PCP: Tequila Lujan MD Status: REG CLI Study: Abdomen/Pelvis without Cont Date of Exam: 12/03/17 Exam# [id number] Ordering Dr: Caesar Smiley MD STUDY: CT ABDOMEN AND PELVIS WITHOUT CONTRAST REASON FOR EXAM: Female, 47 years old. Left flank pain for 4 days. Prior history of right parotid cancer, left anterior trigeminal neuralgia, hysterectomy and back surgery. RADIATION DOSAGE (If Supplied By Facility): CTDIvol = ( 22.88 ) mGy, DLP = ( 1149.16 ) mGycm TECHNIQUE: Transaxial images were obtained from the dome of the diaphragm to the symphysis pubis without oral contrast, and without intravenous contrast. Sagittal and coronal images were reconstructed. Individualized dose optimization techniques were used for this CT. COMPARISON: None. FINDINGS: Minimal bibasilar linear opacities in small areas of pleural thickening most likely chronic in nature. Negative for major consolidation or pleural effusion. The visualized portions of the heart are within normal limits. Normal liver. Normal gallbladder and extrahepatic biliary system. Normal spleen. Normal pancreas. Normal bilateral adrenal glands. Normal right kidney. Normal left kidney. Normal visualized stomach. Normal small intestine. Normal stool-filled colon. The appendix is visualized and appears normal. Normal abdominal aorta. Normal inferior vena cava. Normal retroperitoneum. Normal nondistended urinary bladder. There is absence of the uterus consistent with a prior hysterectomy. 4.1 x 4.2 x 3.6 cm left ovarian cyst. Normal right ovary. Negative for free fluid. Small fatty umbilical hernia. Normal osseous structures. CT/Abdomen/Pelvis without Cont IMPRESSION: Normal size kidneys bilaterally without hydronephrosis or stones. Unremarkable urinary bladder. 4.1 x 4.2 x 3.6 cm left ovarian cyst. Normal right ovary. Negative for free fluid. Status post hysterectomy. No acute bowel related findings. Negative for evidence of perforation, obstruction or inflammatory bowel changes. Stool-filled colon. Normal appendix. No additional acute abdominal or pelvic findings. Electronically Signed: Helena Bradford MD at 16:18 EST , Service support , CC: Tequila Lujan MD; Caesar Smiley MD Microfilm Duplicating Unit Supervisor: Signed EMERGENCY DEPARTMENT Observed: 12/02/2017 Status: F Source: BLANDON SUMMARY 11:35 PM [facility] RE[facility]ITORY [facility] Medical Records Department [address] [place] [address] Emergency Department Summary 12/02/17 2327 MR#: [id number] Acct: [id number] Name: BRISSA STEELE Rep #: [id number] : 1970 47 From: Maco Adorno MD PCP: Tequila Lujan MD Status: REG ER - ER Visit Summary Date of Service: 12/02/17 Chief Complaint: Left lower back pain located near the posterior iliac spine History of Present Illness: The patient is a 47 F who presents with acute right lower quadrant bowel pain. Upon further questioning she has had mild symptoms for a couple of days. Her and she have been been doing renovation. Today they were scraped on linoleum. She denies any bowel, bladder symptoms. She denies saddle anesthesia or paresthesia. She denies any radicular pain. She denies foot drop. She denies weakness in her thigh muscles. There is no history of direct trauma. Patient denies any fever, chills or night sweats. She denies dysuria, frequency, urgency or hematuria. There is no history of renal ureterolithiasis. She has not noted a rash. She has no contraindication to anti-inflammatory agents. 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 She denies lifting pushing or doing anything strenuous at work. Physical Examination: Patient is a pleasant middle-aged woman who appears uncomfortable. Vital signs are normal and she is afebrile. HEENT exam is unremarkable. Heart is regular without murmur, gallop or rub. S1 and S2 are normal. Lungs are clear to auscultation with good movement of air bilaterally. Abdomen is remarkable for suprapubic discomfort. There is no guarding or rebound tenderness. Well-healed surgical scar secondary to and hysterectomy. Hysterectomy secondary to abnormal vaginal bleeding. There is no CVA tenderness. She has pain palpation near the posterior aspect of the left ilium. Movement i.e. flexion, extension and rotation causes her discomfort. Straightening her legs causes her significant discomfort. Straight leg test is is negative on the right with a negative crossover test. She complains of pain at 10 with elevation of the left lower extremity. Patella and ankle reflexes are 3+ and symmetric. PT and DP pulses are palpable. EHL is intact. There is no clonus or Babinski sign noted. Sensation is normal. Test Results: UA macro was positive for leukoesterase with 0 WBCs, 0 RBCs and 0 bacteria on microscopic analysis. Emergency Department Course and Treatment: IV was established and she was treated with 1 mg of Dilaudid, 30 mg of Toradol and 4 mg of Zofran for reported nausea to opiates. Morphine was not used and she complains of itching. Treatment Plan: Discharge with appropriate home-going instructions for low back pain or muscle skeletal etiology Disposition: Discharge to home with in stable and improved condition Impression: Acute left lower back pain without sciatica initial encounter This note was generated with [employer] dictation software. It may contain incorrect words, spelling, and punctuation that were not noted in review of the chart prior to signing ED Disposition - Plan for ED Patient: Disposition: Home or Assisted Living Chief Complaint: Flank Pain Instructions: ED Exercises Lumbar Muscles Prescriptions: Hydrocodone Bitart/Apap 5-325 [[place] 5MG-325MG] 1 tab PO Q6H PRN PRN 3 Days #10 tab PRN Reason: Pain Referrals: Tequila Lujan MD [Primary Care Provider] - 1 Week if not improving Additional Instructions: Apply ice 6-8 times a day 20-30 minutes at a time for the next 2-3 days. Take either 4 Advil every 8 hours or 2 Aleve every 12 hours for the next 3-5 days for pain control. Heat will make your pain worse. What to do if you have Problems For any increased pain, shortness of breath, bleeding, nausea or vomiting, chest pain, or any unexpected problems, contact your Primary Care Provider. Call [facility] ([phone]) or report to the closest Emergency Room. Call 911 if necessary. 12/02/17 9495 <Electronically signed by Maco Adorno MD> Date Maco Adorno MD Cosigner Signature (If Indicated): Date CC: Tequila Lujan MD URINALYSIS, COMPLETE Collected: 12/02/2017 Status: F Source: BLANDON 9:40 PM [facility] RE[facility] Order Comment: Order Date: 12/02/17 How was Urine Obtained? CLEAN CATCH TYPE CODE TESTS RESULT OUT OF RANGE REFERENCE UNITS LAB L400.3000 Yellow COLOR Normal Straw LAB L400.3050 Clear Normal CLARITY Clear LAB L400.3200 Normal mg/dl Normal GLUCOSE, UR Normal LAB L400.3300 Negative mg/dL Normal BILIRUBIN URINE Negative LAB L400.3400 Negative mg/dl Normal KETONE UR Negative LAB L400.3465 1.002-1.030 Normal SP.GR. DIPSTX 1.010 LAB L400.3550 5.0 - 8.0 pH UR Normal 6.0 LAB L400.3600 Negative mg/dl PROT Normal DIPSTX Negative LAB L400.3700 Normal mg/dl Normal UROBILI Normal LAB L400.3750 Negative Normal NITRITE UR Negative LAB L400.3780 Negative /ul Normal OCCULT BLOOD-UR Negative LAB L400.3800 Negative /ul High LEUK ESTERASE 100 LAB L400.4050 0-5 /hpf WBC 0 Normal SEEN LAB L400.4100 0-5 /hpf 0 Normal RBC-UA SEEN LAB L400.4150 5-10 /hpf SQUAM Normal EPI 0-5 SEEN LAB L400.4300 None Seen /hpf 0 Normal BACTERIA SEEN LAB L400.4350 <or=2+ /hpf 0 Normal MUCUS, URINE SEEN Performed By: #### L400.0001 #### [facility] [address] [place], [id number] URGENT CARE VISIT Observed: 11/23/2017 Status: F Source: LIZA REPORT 7:52 AM [facility] [address] [place] [address] [address] [place] [address] OFFICE VISIT Date of Service: 11/23/17 MR#: [id number] Acct: [id number] Name: BRISSA STEELE Rep #: [id number] : 1970 Provider: Randolph COLBERT Age/Sex: 47/F Location: [facility] Status: Signed Intake Vital Signs11/23/17 Height 5 ft 3 in 11/23/17 Weight: 213 lb 6 oz Intake Visit Reasons: RT GREAT TOE PAIN Prenatal Genetic Counselor Required: No Accompanied by: None Is patient in pain?: Yes (great toe) Pain scale (1-10): 5 Allergies morphine Adverse Reaction (Verified 04/23/16 09:20) Vomiting Medications Naproxen [Naprosyn] 500 mg PO BID PRN PRN #20 tab 10/05/13 [Rx Confirmed 04/23/16] Carbamazepine [Tegretol] 100 mg PO BID 01/25/16 [History Confirmed 04/23/16] Ibuprofen [Motrin] 800 mg PO TID PRN PRN 01/25/16 [History Confirmed 04/23/16] Lansoprazole [Prevacid] 30 mg PO QHS 01/25/16 [History Confirmed 04/23/16] Methocarbamol [Robaxin] 1,000 mg PO DAILY PRN PRN 01/25/16 [History Confirmed 05/12/16] Mexiletine [Mexitil] 150 mg PO DAILY 01/25/16 [History Confirmed 04/23/16] Pregabalin [Lyrica] 50 mg PO QHS 01/25/16 [History Confirmed 04/23/16] Pregabalin [Lyrica] 150 mg PO DAILY 01/25/16 [History Confirmed 04/23/16] Oxycodone HCl/Acetaminophen [Percocet 5/325] 1 - 2 tab PO Q4H PRN PRN #20 tab 02/04/16 [Rx Confirmed 04/23/16] Progesterone,Micronized [Prometrium] 300 mg PO DAILY 04/23/16 [History Confirmed 04/23/16] Docusate Sodium [Colace] 100 mg PO BID #30 cap 05/13/16 [Rx] cephalexin 500 mg capsule 500 mg PO Q12H 10 Days #20 cap 11/23/17 [Rx Confirmed 11/23/17] venlafaxine ER 75 mg capsule,extended release 24 hr 75 mg PO QHS 11/23/17 [History Confirmed 11/23/17] PFSH Medical History History of parotid cancer (Acute) Knee pain (Acute) Right trigeminal neuralgia (Acute) Surgical History H/O: hysterectomy (Acute) History of D AND C (Acute) History of arthroscopy of right knee (Acute) History of section (Acute) Social History Smoking Status: Never smoker HPI HPI Details: BRISSA STEELE, is a 47 F who presents to the office today for right great toe pain and redness. Patient states that she has had an ongoing fungal infection to the right great toenail however over the past several days has noticed redness and pain at the nail border. She states that she has taken ibuprofen and Tylenol for the pain which does help. She denies numbness or tingling or loss of rating of motion of the toe. No radiation of the pain. No fever, chills, sweats. No other associated symptoms or alleviating/aggravating factors. ROS Const Constitutional: No chills, fever(s), fatigue or abnormal sleep pattern Resp Respiratory: No shortness of breath or chest congestion Cardio Cardiology: No chest pain at rest, chest pain with exertion or shortness of breath Skin Skin: Positive for redness; no wounds or lesions Neuro Neurology: No behavioral changes or confusion Psych Psychiatric: No behavioral changes, No confusion, No abnormal sleep pattern Endo Endocrine: No fatigue Exam Const General: cooperative, healthy appearing Resp Effort AND Inspection: normal respiratory effort Auscultation: Bilateral: Clear to Auscultation Cardio Rate: regular rate Rhythm: regular rhythm Heart Sounds: S1 normal, S2 normal Skin General: no rashes or lesions noted Neuro General: alert, CN's II-XI intact bilaterally Extrem General: full ROM, normal capillary refill, no joint enlargement Other: Right great toe redness at the proximal nail skin border. There is no fluctuation or erythema to the area. No streaking or warmth. Psych Appearance: grossly normal Assessment AND Plan Problems 1. Paronychia of great toe of right foot L03.031 Status Acute 2. Fungal infection of toenail B35.1 Status Acute Plan Patient has been advised to take Keflex 500 mg twice daily for 10 days and to follow-up with her PCP for further treatment of the fungal infection. Patient also advised to use ibuprofen or Tylenol as needed for pain. Educated of potential red flags when appropriate report to the ED. Patient verbalized understanding of all the above. This note was generated with [employer] dictation software. It may contain incorrect words, spelling, and punctuation that were not noted in checking the note before signing. Medications New: Coding Level of Care Code Off vis,new,level 3 Diagnoses Paronychia of great toe of right foot L03.031 Fungal infection of toenail B35.1 11/23/17 0752 <Electronically signed by Randolph COLBERT> Date Randolph COLBERT Cosigner Signature: Date (if applicable) CC: ALLERGIES ALLERGIES DATE TYPE / CODE NAME / CODE REACTION SEVERITY SOURCE 12/02/2017 Drug morphine/Q26448 Vomiting Unknown [facility] Allergy/416 1545(RXNORM) [facility] 103059(SNOM Repository ED CT) 01/30/2011 DRUG MORPHINE Vomiting [facility] INGREDI/419 [facility] 270324(SNOM Repository ED CT) Drug/547085 morphine Vomiting [facility] 003(SNOMED [facility] CT) System Repository ENCOUNTERS ENCOUNTERS ADMIT/DISCHARGE ACCOUNT NUMBER ADMITTING ENCOUNTER LOCATION SOURCE CLASS 10/15/2018 [id number] [facility] ding:OPBI Repository 09/23/2018 [id number] [facility] ding:OPUS Repository 09/20/2018 [id number] [facility] ding:LAB.FUT Repository URE 09/09/2018 [id number] [facility] ding:MRI Repository 07/06/2018/07/06/20 [id number] Ambulatory [address] ding:MASS Repository 05/13/2018 [id number] [facility] ding:RAD Repository 05/11/2018/05/11/20 [id number] Tequila Lujan Ambulatory [address] ding:[place] Repository nt MedicRoom: Room 2 05/11/2018 [id number] [facility]ulatory [facility] ding:EMPH Repository 03/24/2018 [id number] [facility]ulatory [facility] ding:OPUS Repository 01/07/2018/01/09/20 [id number] Ambulatory [address] Repository 12/11/2017/12/12/19 [id number] Tequila Lujan Ambulatory [address] ding:[place] Repository nt MedicRoom: Room 1 12/03/2017 [id number] [facility]ulatory [facility] ding:CT Repository 12/02/2017/12/02/19 [id number] Emergency [address] ding:ED Repository 11/23/2017/11/23/19 [id number] Ambulatory BMSBuilding: [address] Repository 11/18/2017/11/18/[id number] ding:[place] Repository nt Medic PAYERS PAYERS ENCOUNTER GUARANTOR PAYER SUBSCRIBER SOURCE 10/15/2018 BRISSA Tsang Primary Insurance:[facility] BRISSA D eJesus [id number] [facility] BACHMANNDOB: [address] [id number] Care Hospital of [facility] [place] [address]Ior: Number: Repository [id number] (HP) Date:0170-87-02OC [address] [address]YCLBFQPGM, [place] [address]IN: CHECK WEBSITE 10/15/2018 Secondary NOT GIVENUNK Liza Insurance:SELF PAY [facility] Number: Effective Repository Date:2018-08-18 09/23/2018 BRISSA Tsang Primary Insurance:[facility] BRISSA Arguetaoster [id number] [facility]ATIONDOB: [address] [id number] Care Hospital of Southern [place] [address]Umi: Number: Repository [id number] (HP) Date:4180-79-95LG [address] [address]VAFPKHYEH, [place] [address]OK: CHECK WEBSITE 09/23/2018 Secondary NOT GIVENUNK [place] Insurance:SELF PAY [facility] Number: Effective Repository Date:2018-09-08 09/20/2018 BRISSA Tsang Primary Insurance:[facility] BRISSA Arguetaoster [id number] [facility] [address] [id number] Care Hospital of Southern [facility] [place] [address]Hvc: Number: Repository [id number] (HP) Date:7044-46-30YK [address] [address]IIYJOMEQ[place] [address]WP: CHECK WEBSITE 09/20/2018 Secondary NOT GIVENUNK Liza Insurance:SELF PAY [facility] Number: Effective Repository Date:2018-09-08 09/09/2018 BRISSA Tsang Primary Insurance:[facility] BRISSA Arguetaoster [id number] [facility] [address] [id number] Hospital [place] [address]Tls: Number: Repository [id number] (HP) Date:4050-67-68XS [address] [address]FDCIORTIQ, [place] [address]KD: CHECK WEBSITE 09/09/2018 Secondary NOT GIVENUNK Liza Insurance:SELF PAY [facility] Number: Effective Repository Date:2018-09-02 07/06/2018 BRISSA Tsang Primary Insurance:[facility] BRISSA Arguetaoster [id number] [facility]THB: [address]12-01[facility] [address]Exw: Number: Repository [id number] (HP) Date:2530-52-88SX [address] [address]GHFEGDLTN, [place] [address]KI: CHECK WEBSITE 07/06/2018 Secondary NOT GIVENUNK Liza Insurance:SELF PAY [facility] Number: Effective Repository Date:2018-05-13 05/13/2018 BRISSA Tsang Primary Insurance:[facility] BRISSA Arguetaoster [id number] [facility]ENTERMANNDOB: [address] [id number] Care Hospital of Southern [place] [address]Kyo: Number: Repository [id number] (HP) Date:5917-04-81HG [address] [address]FMPTYELPQ, [place] [address]CH: CHECK WEBSITE 05/13/2018 Secondary NOT GIVENUNK Liza Insurance:SELF PAY [facility] Number: Effective Repository Date:2018-05-13 05/11/2018 BRISSA Tsang Primary BRISSA Tsang [facility] BACHMANNDOB: [facility] [id number] [facility] [id number] System [facility], [address] Number: Effective 5 [facility] Repository [address] [place] [address], Date:2018-04-29 - [address] [place] [address] [id number] [place] [address]Sai: Name:CD:[id number] [address]Lts: [address] [address]SZIYUYFGX, () [place] [address]ID: [phone]) (HP) [phone] () 05/11/2018 BRISSA Tsang Primary NOT GIVENUNK Liza [id number] Insurance:SELF PAY [address] [address]Gly: Number: Effective Repository Date:2018-05-11 (HP) 03/24/2018 BRISSA Tsang Primary Insurance:[facility] BRISSA Tsang [place] [id number] [facility] [address] 0215-11-60SMDAdvanced Care Hospital of Southern [place] [address]Ztb: Number: Repository [id number] (HP) Date:4773-60-16WD [address] [address]WYENMYQKA, [place] [address]LF: CHECK WEBSITE 03/24/2018 Secondary NOT GIVENUNK [place] Insurance:SELF PAY [facility] Number: Effective Repository Date:2018-02-19 12/11/2017 BRISSA Tsang Primary BRISSA Tsang [facility] BACHMANNDOB: Insurance:[facility] BACHMANNDOB: [facility] [id number] [facility] [id number] System [facility], [address] Number: Effective 5 [facility], [address] Repository [address] [place] [address], Date:2017-11-[address] [place] [address] [id number] [place] [address]Ggs: Name:CD:[id number] [facility]Rva: [address] [address]JFVSJNQCR, () [place] [address]VP: [phone]) (HP) [phone] () 12/03/2017 BRISSA M Primary Insurance:[facility] BRISSA Tsang [place] [id number] [facility] BACHMANNDOB: [address] [id number] Care Hospital of [facility] [place] [address]Ghn: Number: Repository [id number] (HP) Date:[id number] [facility] [address]STBTEK, [place] [address]PT: CHECK WEBSITE 12/03/2017 Secondary NOT GIVENUNK Liza Insurance:SELF PAY [facility] Number: Effective Repository Date:2017-12-03 12/02/2017 BRISSA Tsang Primary Insurance:[facility] BRISSA Tsang Liza [id number] [facility]: [address] [id number] [address]Zqo: Number: Repository [id number] () Date:[id number] [facility] [address]NQB[place]BC, [place] [address]TL: CHECK WEBSITE 12/02/2017 Secondary NOT GIVENUNK Liza Insurance:SELF PAY [facility] Number: Effective Repository Date:2017-12-02 11/23/2017 BRISSA M Primary Insurance:[facility] BRISSA Tsang Liza [id number] [facility] [id number] [address] [place] [address], Number: Repository [place] [id number]: [id number] Date:4216-17-71[place] [address] () [address]STJ[place]W, [place] [address]MY: CHECK WEBSITE 11/23/2017 Secondary NOT GIVENUNK Liza Insurance:SELF PAY [facility] Number: Effective Repository Date:2017-11-23 11/18/2017 BRISSA M Primary BRISSA M [employer] BACHMANNDOB: Insurance:1500 BACHMANNDOB: [facility] [id number] [facility] [id number] [facility] Number: Effective 5 [facility] Repository [address] [place] [address], Date:2017-11-05 - [address] [place] [address] [id number] [place] [address]Btb: Name:CD:[id number]: [address], (HP) [place] [address]OT: ([phone] () [phone]
== END ==
PROVIDERS: Family Provider Family Medicine; PCP Family Medicine; Referring Provider Obstetrics & Gynecology; Visit Provider Obstetrics & Gynecology
DX: N95.1 Menopausal and female climacteric states (principal); R10.32 Left lower quadrant pain
CPT/HCPCS: 36415; 82670; 83036; 84144; 84443

== ENCOUNTER → 2018-09-23 11:58 | Outpatient (CLI) | payer OTHER, SELFPAY ==
--- NOTE | 2018-09-23 11:59 | US_ITS ---
STUDY: ULTRASOUND TRANSVAGINAL CLINICAL: Female, 48 years old. Left lower quadrant pain. TECHNIQUE: Transvaginal COMPARISON: 03/24/2018 FINDINGS: Uterus is surgically absent. Right ovary is not visualized. Normal left ovary, measuring 3.4 x 3.5 x 4.2 cm. Anechoic cyst of the left ovary measures 3.3 x 3.0 x 3.1 cm without demonstrated solid component or septation. There is no free fluid in the pelvis. US/Transvaginal Non- IMPRESSION: 1. 3.3 cm simple left ovarian cyst, new since prior study. 2. No pelvic free fluid. 3. Uterus and right ovary not visualized. Electronically Signed: Godwin Nur MD at 9:12 EST , Service support ,
== END ==
PROVIDERS: Family Provider Family Medicine; PCP Family Medicine; Referring Provider Obstetrics & Gynecology; Visit Provider Obstetrics & Gynecology
DX: R10.32 Left lower quadrant pain (principal); Z90.710 Acquired absence of both cervix and uterus; Z90.722 Acquired absence of ovaries, bilateral
CPT/HCPCS: 76830; 93976

== ENCOUNTER → 2018-11-16 10:48 | Outpatient (CLI) | payer OTHER, SELFPAY ==
--- NOTE | 2018-11-16 11:44 | RAD_ITS ---
STUDY: X-RAY - RIGHT FOOT CLINICAL: Female, 48 years old. Pain, possible plantar fasciitis TECHNIQUE: 3 view(s) of the foot. COMPARISON: None. FINDINGS: Normal talus, and tarsal bones. Small calcaneal spurs Normal visualized subtalar, talonavicular, calcaneocuboid, tarsal and tarsometatarsal articulations. Normal metatarsi. Normal metatarsophalangeal joint of the great toe. Normal tibial and fibular sesamoid bones. Normal interphalangeal joint of the great toe. Normal phalanges of the great toe. Normal second through fifth metatarsophalangeal joints. Normal interphalangeal joints and phalanges of the lesser toes. The soft tissue structures are unremarkable. RAD/Foot min 3 Views IMPRESSION: Small calcaneal spurs, otherwise unremarkable right foot Electronically Signed: Jose Leiva MD at 19:54 EST , Service support ,
== END ==
PROVIDERS: Family Provider Family Medicine; PCP Family Medicine; Referring Provider Podiatrist; Visit Provider Podiatrist
DX: M72.2 Plantar fascial fibromatosis (principal)
CPT/HCPCS: 73630

== ENCOUNTER → 2019-01-07 08:42 | Outpatient (CLI) | payer OTHER, SELFPAY ==
--- NOTE | 2019-01-07 08:43 | US_ITS ---
STUDY: ULTRASOUND TRANSVAGINAL CLINICAL: Female, 48 years old. Left ovarian cyst TECHNIQUE: Transvaginal COMPARISON: None. FINDINGS: Status post hysterectomy. Normal right ovary, measuring 3.3 x 2.2 x 2.5 cm. There is a 2 cm cyst. Normal left ovary, measuring 2.3 x 1.8 x 1.7 cm. There is a 1.1 cm cyst. There is no free fluid in the pelvis. Mild debris is noted in the urinary bladder. US/Transvaginal Non- IMPRESSION: Bilateral ovarian cysts. Status post hysterectomy. Mild debris in the urinary bladder. Electronically Signed: Johnny Blanco DO at 23:55 EDT Tel [phone], Service support ,
== END ==
PROVIDERS: Family Provider Family Medicine; PCP Family Medicine; Referring Provider Obstetrics & Gynecology; Visit Provider Obstetrics & Gynecology
DX: N83.209 Unspecified ovarian cyst, unspecified side (principal)
CPT/HCPCS: 76830; 93976

== ENCOUNTER → 2019-01-21 07:20 | Outpatient (CLI) | payer OTHER, SELFPAY ==
--- NOTE | 2019-01-21 07:24 | BI_ITS ---
MAMMOGRAPHY - BILATERAL SCREENING REASON FOR EXAM: Female, 48 years old. Routine annual screening examination. PERTINENT HISTORY: Aunts with breast cancer. TECHNIQUE: Digital bilateral breast chucky (3D mammographic acquisition) in the CC and MLO projections. 2-D mediolateral oblique (MLO) and craniocaudad (CC) views of both breasts were obtained. CAD: Full Field Digital Mammography with Computer Added Detection was performed. COMPARISON: Comparison is made with prior examination dated July 23, 2017 and July 08, 2016. FINDINGS: Breast Composition: The breasts are heterogeneously dense, which may obscure small masses. There are no dominant masses or suspicious calcifications. No other significant abnormalities are identified. There has been no significant change since the prior study. BI/SCREENING MAMM (CAD), BILAT IMPRESSION: Stable bilateral screening mammogram. Yearly follow-up mammogram recommended. (A) ASSESSMENT CATEGORY: BIRADS Category 1: Negative. A letter regarding these results will be sent to the patient by the facility within 30 days. Approximately 10% of breast cancers are not detected by mammography. A normal mammogram should not delay biopsy of a clinically suspicious abnormality. [id number] Electronically Signed: Issac Dasilva, at 10:17 EDT , Service support ,
== END ==
PROVIDERS: Family Provider Family Medicine; PCP Family Medicine; Referring Provider Family Medicine; Visit Provider Family Medicine
DX: Z12.31 Encounter for screening mammogram for malignant neoplasm of breast (principal)
CPT/HCPCS: 77063; 77067

== ENCOUNTER 2019-03-30 17:00 | Outpatient (RCR) | payer OTHER, SELFPAY ==
--- NOTE | 2019-03-08 11:06 | HP.PTEVAL_ITS ---
Patient's Visit Information BRISSA STEELE is a 48 year old F referred to Physical Therapy by Philip Mendez DPM with a diagnosis of B plantar fasciatis. Date of Evaluation: 03/03/19 Physical Therapist: Ezekiel Mejia DPT - Visit Plan Frequency: 2x /Week Duration: 4 Weeks Plan: Start with light low load stretching, graston, US and dry needling. Once symptoms have reduced progress to eccentric stability/strengthening. - Subjective Findings: Pt. is here today for her initial evaluation with diagnosis of B plantar fascistis. Pt. reports that her L is bothering her more than her R. Pt. reports having to adjust her work schedule to x3 days per week due to pain. 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 Pt. reports having increased pain by the end of the day and has pain with walking and standing. Pt. reports being unable to walk barefoot. Pt. does deny N/T. Pt. reports wearing CAM boot, trialing injections, stretchinga nd EPAT machine. Pt. is hopeful to reduce symptoms in order to get back to all recreational/work activiteis without limitations. - Pain R plantar fascia Pain Intensity (Out of 10): 2 L plantar fascia Pain Intensity (Out of 10): 3 Pain Intensity Range: 2, 6 - Objective POSTURE: Pt. has normal posture in stance, patient has decently higher arch, mild increase in over pronation during SLS. PALPATION: Pt. has increased tenderness along plantar facia, L worse than R. Pt. has pain along longitudinal arch as well. NEURO: Normal througoutw ith sensation and DTR. ROM: Pt. has 10deg of bilateral DF, pt. has normal ROm of rest of ankle bilaterally. MMT: Pt. has 5/5 throughout 4/5 flexor intrinsic strength of B feet. GAIT: PT. ambulates with early heel off on L side and decreased step length bilaterally. STAIRS: PT. has increased pain with descending. - Goals Goal 1:: Pt. to be I with HEP. Goal Time Frame: 4-6 Weeks Goal 2:: Pt. to have increased ROM of B ankle DF to atleast 12deg each. Goal Time Frame: 4-6 Weeks Goal 3:: Pt. to have increased intrinsic strength of B feet by 1/2 grade. Goal Time Frame: 4-6 Weeks Goal 4:: Pt. to ambulate with nroaml pattern without increase in symptoms for unlimited distances. Goal Time Frame: 4-6 Weeks Goal 5:: Pt. to return to all work actitiies without increase in symptoms. Goal Time Frame: 4-6 Weeks - Rehabilitation Potential Physical Therapy Diagnosis: Pt. has signs and symptoms consistent with B plantar fasciatis. Pt. has increased L compared to R symptoms. Pt. has some tightness of B calves, but not extreme. Pt. would benefit from Pt. to address her symptoms, increase ROM and promote deep intrinsic strength. Rehabilitation Potential: Good - Anticipated Interventions Patient/Client Instruction: Educate patient on: Condition, Plan of Care, Risk Factors, Benefits of Fitness Program For the Purpose of:: To improve decision making, To facilitate caregiver knowledge, To improve self management, To prevent re-injury, To improve ability to perform tasks related to life management, To improve tolerance to ADL's Therapeutic Exercise to Include: Strength training, Power training, Balance training, Postural training, Gait and locomotor training, Passive ROM, Active ROM For the Purpose of:: To decrease pain, To decrease swelling/inflammation, To i ncrease ROM, To improve nutrient delivery to tissue, To improve muscle performance and motor function, To improve gait and locomotor functions, To improve health of tissue, To decrease soft tissue restriction, To increase flexibility/ROM Manual Therapy Techniques to Include: Mobilization, Functional dry needling, Soft tissue mobilization For the Purpose of:: To decrease pain, To decrease swelling/inflammation, To increase ROM, To improve nutrient delivery to tissue, To increase oxygenation perfusion, To improve muscle performance and motor function Ultrasound (thermal/non thermal): Yes For the Purpose of:: To decrease pain, To decrease swelling/inflammation, To increase ROM, To increase oxygenation perfusion Thank you for the opportunity to evaluate your patient. For Medicare and Medicare HMO plans, please review the plan of care and approve it. It will need to be FAXED BACK to us at [phone] for Medicare purposes. For Medicare only, by signing this I certify the plan of care. Please let me know if there are questions or concerns regarding this plan of care. Physician Signature: Date:
--- NOTE | 2019-09-07 14:22 | HP.PT.NRP ---
HP - Discharge Summary (1) - Patient Information BRISSA STEELE was seen in my office for initial evaluation on 03/03/19. The following Plan of Care was established for this patient: Initial Frequency: 2x /Week Initial Duration: 4 Weeks - Anticipated Interventions Patient/Client Instruction: Educate patient on: Condition, Plan of Care, Risk Factors, Benefits of Fitness Program For the Purpose of:: To improve decision making, To facilitate caregiver knowledge, To improve self management, To prevent re-injury, To improve ability to perform tasks related to life management, To improve tolerance to ADL's Therapeutic Exercise to Include: Strength training, Power training, Balance training, Postural training, Gait and locomotor training, Passive ROM, Active ROM For the Purpose of:: To decrease pain, To decrease swelling/inflammation, To increase ROM, To improve nutrient delivery to tissue, To improve muscle performance and motor function, To improve gait and locomotor functions, To improve health of tissue, To decrease soft tissue restriction, To increase flexibility/ROM Manual Therapy Techniques to Include: Mobilization, Functional dry needling, Soft tissue mobilization For the Purpose of:: To decrease pain, To decrease swelling/inflammation, To increase ROM, To improve nutrient delivery to tissue, To increase oxygenation perfusion, To improve muscle performance and motor function Ultrasound (thermal/non thermal): Yes For the Purpose of:: To decrease pain, To decrease swelling/inflammation, To increase ROM, To increase oxygenation perfusion This patient was last seen in our office 03/30/19. Pertinent comments regarding their Physical therapy will appear below: Pt. was seen for her plantar fasciatis. Pt. has not been seen in several months and will be DC from PT at this point intime. At this point I will be discontinuing this patient from physical therapy. I would be happy to see this patient again in the future if found appropriate by the physician. Thank you! Ezekiel Mejia, TRINH
== END 2019-03-30 19:00 | disposition home or self-care (01) ==
LOC: PT 17:00
PROVIDERS: Family Provider Family Medicine; PCP Family Medicine; Referring Provider Podiatrist; Visit Provider Podiatrist
DX: M72.2 Plantar fascial fibromatosis (principal)
CPT/HCPCS: 97035; 97110; 97140; 97161; 97530

== ENCOUNTER 2019-07-18 13:59 | Outpatient (REF) | payer SELFPAY ==
[2019-07-18 14:00] VITALS: BP 122/72; PULSE 100; RESP 16; TEMP 36.7; O2SAT 97; BMI 34.5
--- NOTE | 2019-07-18 14:38 | ED.DCSUM_ITS ---
- ER Visit Summary Date of Service: 07/18/19 Chief Complaint: Needlestick History of Present Illness: The patient is a 48 F who had a needlestick. 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 She denies any symptoms at this time Physical Examination: Vital signs reviewed. Right hand reveals no bleeding at this time. A small pinpoint needlestick is seen on the fifth finger. Test Results: Pending Emergency Department Course and Treatment: Patient will have testing and the source patient will also have testing. Patient declined any postexposure p rophylaxis. Treatment Plan: [] Disposition: Discharge Impression: Needlestick This note was generated with [employer] dictation software. It may contain incorrect words, spelling, and punctuation that were not noted in review of the chart prior to signing ED Disposition - Plan for ED Patient: Referrals: Tequila Lujan MD [Primary Care Provider] -
--- NOTE | 2019-07-18 14:40 | ED.DEP ---
ED Disposition - Plan for ED Patient: Disposition: Home or Assisted Living Instructions: BODY FLUID EXPOSURE, Health Care Worker Referrals: Tequila Lujan MD [Primary Care Provider] -
[2019-07-18 16:51] LABS: HIV - WCH Non-Reactive (Nonreactive); Hepatitis B Surface Antigen Non-Reactive (Nonreactive); Hepatitis C Antibody Non-Reactive (Nonreactive)
[2019-07-18 16:57] LABS: Hepatitis B Surface Antibody Reactive
== END 2019-07-18 14:59 | disposition home or self-care (01) ==
LOC: ED 13:59
PROVIDERS: Family Provider Family Medicine; PCP Family Medicine; Visit Provider Emergency Medicine
DX: S61.236A Puncture wound without foreign body of right little finger without damage to nail, initial encounter (principal); W46.0XXA Contact with hypodermic needle, initial encounter; Y93.9 Activity, unspecified; Y92.9 Unspecified place or not applicable; K21.9 Gastro-esophageal reflux disease without esophagitis
CPT/HCPCS: 86703; 86706; 86803; 87340

== ENCOUNTER → 2020-02-29 15:04 | Outpatient (CLI) | payer OTHER, SELFPAY ==
[2020-02-20 08:45] VITALS: BMI 34.5
--- NOTE | 2020-02-29 15:12 | RAD_ITS ---
STUDY: X-RAY - LEFT FOOT CLINICAL: Female, 49 years old. BILATERAL PLANTAR FASCITIS TECHNIQUE: AP and lateral view(s) of the foot. COMPARISON: None. FINDINGS: There is a plantar calcaneal spur. Normal visualized subtalar, talonavicular, calcaneocuboid, tarsal and tarsometatarsal articulations. Normal metatarsi. Normal metatarsophalangeal joint of the great toe. Normal tibial and fibular sesamoid bones. Normal interphalangeal joint of the great toe. Normal phalanges of the great toe. Normal second through fifth metatarsophalangeal joints. Normal interphalangeal joints and phalanges of the lesser toes. The soft tissue structures are unremarkable. RAD/Foot 2 Views IMPRESSION: Plantar spur. Electronically Signed: Issac Dasilva, at 14:42 EDT , Service support ,
--- NOTE | 2020-02-29 15:12 | MRI_ITS ---
STUDY: MRI RIGHT REARFOOT WITHOUT CONTRAST REASON FOR EXAM: Female, 49 years old. plantar fasciitis, right foot pain -- recurrent heel pain TECHNIQUE: Standardized fat and water weighted pulse sequences were obtained in all 3 orthogonal planes. COMPARISON: X-ray FINDINGS: Normal subcutis adipose space. Normal posterior tibialis tendon. Normal flexor digitorum longus tendon. Normal flexor hallucis longus tendon. There is a partial split tear of the peroneus brevis tendon within the retromalleolar groove with tenosynovitis, series 5 images 12/27 through 07/29. Normal tibialis anterior tendon. Normal extensor hallucis longus tendon. Normal extensor digitorum longus tendons. Normal Achilles tendon and teno-osseous insertion. There is thickening and edema of the proximal central cord of the plantar fascia. There is a plantar calcaneal spur with cancellous marrow edema consistent with a marrow stress phenomena, series 8 images 08/28 through . Normal intrinsic muscles of the rearfoot. Normal distal tibiofibular syndesmotic ligamentous complex. Normal lateral ligamentous complex. Normal subtalar ligaments and sinus tarsi. Normal deltoid ligamentous complexes. Normal plantar calcaneonavicular (spring) ligament. There is a joint effusion of the tibiotalar articulation with capsular distension. Normal talar dome. Normal subtalar articulations. Normal talonavicular articulation. Normal calcaneocuboid articulation. Normal navicular-cuneiform articulations. MRI/Lower Ext/No Jt/w/o IMPRESSION: Plantar fasciitis of the reactive spur and edema of the calcaneus. Peroneal tenosynovitis with longitudinal split tear of the peroneal brevis. Tibiotalar joint effusion. Electronically Signed: Tavares Esquivel MD at 16:47 EDT , Service support ,
--- NOTE | 2020-02-29 15:14 | RAD_ITS ---
STUDY: X-RAY - RIGHT FOOT CLINICAL: Female, 49 years old. BILATERAL PLANTAR FASCITIS TECHNIQUE: AP and lateral view(s) of the foot. COMPARISON: None. FINDINGS: There is a dorsal talar neck ?beak?. Plantar spur. Normal visualized subtalar, talonavicular, calcaneocuboid, tarsal and tarsometatarsal articulations. Normal metatarsi. Normal metatarsophalangeal joint of the great toe. Normal tibial and fibular sesamoid bones. Normal interphalangeal joint of the great toe. Normal phalanges of the great toe. Normal second through fifth metatarsophalangeal joints. Normal interphalangeal joints and phalanges of the lesser toes. The soft tissue structures are unremarkable. RAD/Foot 2 Views IMPRESSION: Plantar spur. Electronically Signed: Issac Dasilva, at 14:42 EDT , Service support ,
== END ==
PROVIDERS: PCP Family Medicine; Referring Provider Podiatrist; Visit Provider Podiatrist
DX: M72.2 Plantar fascial fibromatosis (principal)
CPT/HCPCS: 73620; 73718

== ENCOUNTER → 2020-03-21 09:47 | Outpatient (CLI) | payer OTHER, SELFPAY ==
[2020-02-20 08:45] VITALS: BMI 34.5
[2020-03-21 12:49] LABS: Absolute Lymphocyte Count 1.38 X10^3/uL (0.83-4.51); Basophil# 0.02 X10^3/uL; Basophil% 0.4 % (0-1); Eosinophil# 0.12 X10^3/uL; Eosinophils% 2.5 % (0-5); Hematocrit 43.1 % (37-47); Hemoglobin 13.8 g/dL (12.0-15.0); Lymphocyte # 1.38 X10^3/ul (4.0); Lymphocyte % 28.3 % (19-41); Mean Corpuscular Hgb 29.8 pg (27.0-32.0); Mean Corpuscular Volume 93.1 fL (81-99); Mean Platelet Vol. 11.3 fl (6.2-12.0); Monocyte# 0.35 X10^3/uL; Monocyte% 7.2 % (0-10); NRBC Flagged by Analyzer 0 % (0-5); Neutrophil % 61.4 % (47-70); Platelet Count 238 K/mm3 (150-450); RBC Distribution Width CV 13.7 % (11.6-14.6); RBC Distribution Width SD 46.7 fl (35.1-43.9); Red Blood Count 4.63 M/mm3 (4.2-5.4); White Blood Count 4.9 K/mm3 (4.4-11.0)
[2020-03-21 13:08] LABS: ALB/GLOB Ratio 1.3 RATIO (0.9-2.4); AST(SGOT) 12 U/L (15-37); Alanine Aminotransfer ALT/SGPT 24 U/L (13-56); Albumin, Serum 3.7 g/dL (3.2-5.0); Alkaline Phosphatase 91 U/L (45-117); Anion Gap 7 (5-15); BUN 10 mg/dL (7-18); BUN/Creat Ratio 13.6 RATIO (10-20); Calcium,Total 9.1 mg/dL (8.5-10.1); Chloride 105 mmol/L (98-107); Creatinine, Serum 0.74 mg/dL (0.55-1.02); EST Glomerular Filtration Rate 90 mL/min (>60); Est Glom Filt Rate - Afr Amer 109 mL/min (>60); Globulin 2.9 g/dL (2.2-4.2); Glucose 86 mg/dL (74-106); Potassium 4.1 mmol/L (3.5-5.1); Protein, Total 6.6 g/dL (6.4-8.2); Sodium Level 140 mmol/L (136-145)
== END ==
PROVIDERS: PCP Family Medicine; Visit Provider Family Medicine
DX: Z01.818 Encounter for other preprocedural examination (principal)
CPT/HCPCS: 36415; 80053; 85025

== ENCOUNTER 2020-04-20 06:55 | Day surgery (SDC) | payer OTHER, SELFPAY ==
[2020-02-20 08:45] VITALS: BMI 34.5
[2020-04-20] VITALS (8 sets, daily range): BP systolic 88–118; BP diastolic 47–68; PULSE 68–86; RESP 14–16; TEMP 36–36.7; O2SAT 93–100; BMI 36.1
[2020-04-20] MEDS: Lactated Ringers 1,000 ML 100 ML IV (07:41)
--- NOTE | 2020-04-20 08:30 | TESH_PTH ---
PATIENT: BRISSA STEELE [place] [facility] [id number] AGE/SX: 49/F ROOM: RE04/20/[address]: Dr. Philip Mendez DPM : 1970 BED: DIS: 04/20/2020 SPEC #: [id number] RECD: 04/20/20 13:37 STATUS: YUAN REShekhar #: [id number] AMINA: 04/20/20 08:[address]: Philip Mendez DEPT: SURGICAL PATHOLOGY RECD BY: Erin Handley ENTERED: 04/23/20 11:00 SP TYPE: TENDON OTHR DR: Dr. Tequila Lujan MD Tissues: Tendon and tendon sheath, NOS Procedures: Surgery Specimen Level III HEADER OPERATION: Plantar fasciotomy with resection of infracalcaneal spur PRE-OP DIAGNOSIS: Plantar fasciitis with infracalcaneal spur bilateral feet; peroneus brevis tendon tear with lateral ankle instability right foot TISSUE SUBMITTED: Right foot peroneus brevis tendon MICROSCOPIC DIAGNOSIS Right foot peroneus brevis tendon: Pieces of skeletal muscle tissue and attached fibroconnective tissue and synovial tissue with reactive changes. SCOT:ana 04/24/20 MICROSCOPIC DESCRIPTION Slides are reviewed. GROSS DESCRIPTION Received in fixative is one container labeled with the patient's name and designated right foot debrided peroneus brevis tendon. The specimen consists of two pieces of johnston-brownish soft tissue that in aggregate measure 4 x 1.5 x 1.5 cm. No mass lesion is identified. Grounds/Maintenance Specialist sections are submitted in one cassette. / SCOT:ana 04/23/20 TC:5 CPT: 45487
--- NOTE | 2020-04-20 08:30 | RAD_ITS ---
STUDY: X-RAY - LEFT CALCANEUS REASON FOR EXAM: Female, 49 years old. Bilateral plantar fasciotomy with resection of the inferior calcaneal spur, and right mandibular repair of the peroneal tendon of the right lower extremity in the OR. TECHNIQUE: 2 intraoperative view(s) of the calcaneus were obtained. COMPARISON: Left foot, February 29, 2020. FINDINGS: There is a plantar spur seen along the underside calcaneus on the initial image. The second image demonstrates evidence of removal of a plantar spur. Please refer to the operative report for further details. RAD/Calcaneus min 2 Views IMPRESSION: Surgical resection of a plantar spur in the OR. Electronically Signed: Martin Machado DO at 17:03 EDT Tel [phone], Service support ,
--- NOTE | 2020-04-20 08:38 | RAD_ITS ---
STUDY: X-RAY - RIGHT CALCANEUS REASON FOR EXAM: Female, 49 years old. Bilateral plantar fasciotomy with resection of plantar spur to prior repair of the peroneal tendon of the right lower extremity. TECHNIQUE: 11 intraoperative view(s) of the calcaneus were obtained. COMPARISON: Right foot, February 29, 2020. FINDINGS: The initial image demonstrates a plantar spur along the underside of the calcaneus. The second image demonstrates evidence of resection of this spur. The remainder the images are of the right ankle. There is evidence of a wire being inserted into the lateral aspect of the talus. There is evidence of a pin being placed in the region of the middle talocalcaneal joint. Subsequent images demonstrate a lucency in the upper calcaneus. Question re-insertion site of the peroneal tendon. Please refer to the operative report for further details. RAD/Calcaneus min 2 Views IMPRESSION: Surgical changes right foot the OR, as above. Electronically Signed: Martin Machado DO at 17:05 EDT Tel [phone], Service support ,
[2020-04-20] MEDS: Cefazolin 2 GM in 0.9% Normal Saline 100 ML IV (08:50)
[2020-04-20] MEDS: Bupivacaine Mpf 0.5% 30 ML VIAL (11:35)
--- NOTE | 2020-04-20 12:24 | DCINST_ITS ---
Discharge Diet: Light diet - advance as tolerated Discharge Activity: May Not Drive, Use Walker, Use Crutches Weight Bearing Status: No weight bearing - No weightbearing left or right foot, however may put slight/light weight on left foot for transitions only. Keep extremity elevated above heart level: Left Leg, Right Leg - Keep feet elevated for at least 50 minutes of every hour using pillows Call your doctor if your incision/area has: Continuous Slow Oozing, Sudden Increased Bleeding, Foul Smelling Discharge Call your doctor if you observe: Fever of 101 or Higher, Shortness of breath, Chest pain, Calf discomfort, Uncontrolled pain Cleanse incision/area with: Do not get Incision Wet, Keep Dressing Clean & Dry Allergies/Adverse Reactions: Allergies morphine Adverse Reaction (Verified 02/20/20 08:44) Vomiting Medications to take at Discharge venlafaxine 75 mg capsule,extended release 24 hr 150 mg PO DAILY cap 07/26/19 leuprolide (3 month) 11.25 mg (3 month) intramuscular syringe kit 11.25 mg IM [id number] #1 ea 11/24/19 lansoprazole 30 mg capsule,delayed release 30 mg PO DAILY 02/20/20 pregabalin 200 mg capsule 200 mg PO DAILY 02/20/20 Fluconazole [Diflucan] 100 mg PO DAILY #1 tab 04/20/20 Oxycodone HCl/Acetaminophen [Percocet 5-325 mg Tablet] 1 - 2 ea PO Q6H PRN PRN #30 tab 04/20/20 Rivaroxaban [Xarelto] 10 mg PO DAILY #30 tab 04/20/20 The following prescriptions were given: Fluconazole [Diflucan] 100 mg PO DAILY #1 tab Oxycodone HCl/Acetaminophen [Percocet 5-325 mg Tablet] 1 - 2 ea PO Q6H PRN PRN #30 tab PRN Reason: Pain Score 4-10/10 Rivaroxaban [Xarelto] 10 mg PO DAILY #30 tab Primary Care Physician: Tequila Lujan MD [Primary Care Provider] - Test Results: Test results from this visit will be discussed in further detail at your follow- up appointment, if applicable. Please Follow Up With: Philip Mendez DPM - Call Dr. Mendez if needed, When: 1 week, sooner if needed
--- NOTE | 2020-04-20 12:29 | PCM.OPRPT ---
Report of Operation Date of Procedure: 04/20/20 Pre-Operative Diagnosis: Plantar fasciitis bilateral. Peroneus brevis tendon tear, right. Lateral ankle instability, right Post-Operative Diagnosis: Same, along with subtalar joint instability right Surgery/Procedure Performed:: Plantar fasciotomy w/ resection of infracalcaneal spur bilateral. Peroneal brevis tendon debridement and repair w/ lateral ankle/hindfoot stabilization ear mold laboratory technician: yes - Dr. Manuel Type of Anesthesia:: General Specimen's removed: Debrided peroneus brevis tendon, right - sent to pathology Estimated Blood Loss (mL): 2mL Description of Procedure: Indications: This is a 49 year old female with chronic plantar heel pain - plantar fasciotomy and infracalcaneal spurs bilateral, as well as right lateral ankle pain from peroneus brevis tendon tear and lateral ankle/hindfoot instability. Pain persists and limiting activities despite extensive nonsurgical care. MRIs were obtained which confirmed the above. Due to continue chronic pain and symptoms she wanted to proceed with bilateral plantar fasciotomy and resection of infracalcaneal spurs, along with debride/repair of peroneus brevis tendon and lateral ankle/hindfoot stabilization. This was discussed with her in detail. Reviewed procedures, possible benefits vs risks, goals, expectations and estimated healing time. She expressed understanding and agreement, she elected to proceed forward. The consent forms were reviewed with her, and she freely signed them. All of her questions were answered. No guarantees were given nor implied. Operative Procedure: The patient was brought back into the operating room and was placed on the operating room table in the supine position. She was carefully secured to the operating room table with a safety belt around the waist. A time out was performed and the patient was properly identified and the surgical plan was confirmed. The patient received 2g of IV Cefazolin for antibiotic prophylaxis. A well padded pneumatic tourniquet was applied around the patient's left ankle and right thigh. The patient received general anesthesia per the anesthesiologist. The right and left lower extremities were scrubbed,prepped, draped in the usual aseptic fashion. A time out was performed in which the patient was properly identified and the surgical plan confirmed. Left plantar fasciotomy and infracalcaneal spur resection: The left foot was exsanguinated using an Esmarch bandage and the left ankle pneumatic tourniquet was inflated to 250mmHg. The infracalcaneal spur was visualized on intra operative fluoroscopy, image was saved. A skin incision was made to the medial hindfoot at the level of the plantar fascia and infracalcaneal spur, careful dissection was completed down through the subcutaneous tissue layer. A plane was created superiorly and inferiorly around the plantar fascia and the medial 50% of the plantar fascia was released via a plantar fasciotomy. The infracalcaneal spur was felt, and was carefully resected using a powered rasp. Resection of the infracalcaneal spur was confirmed using intraoperative fluoroscopy. Images pre and post infracalcaneal spur resection were saved. The site was flushed out with copious amounts of normal saline solution. The skin was reapproximated using 3-0 Nylon. The pneumatic tourniquet was deflated, and there was immediate return of warmth and perfusion to the foot and to all toes on the foot with normal temperature gradient and CFT < 2 seconds to all toes. Total tourniquet was was 24 minutes. 10mL of 0.5% Bupivacaine was given as a local block around the surgical site for further post op pain control. Hemostasis was achieved. A dressing was applied which consisted of Betadine soaked adaptic, 4x4 gauze, Kerlix and rafael bandage. Right plantar fasciotomy and infracalcaneal spur resection: The right foot/ankle/leg was exsanguinated using an Esmarch bandage and the right thigh pneumatic tourniquet was inflated to 300mmHg. The infracalcaneal spur was visualized on intra operative fluoroscopy, image was saved. A skin incision was made to the medial hindfoot at the level of the plantar fascia and infracalcaneal spur, careful dissection was completed down through the subcutaneous tissue layer. A plane was created superiorly and inferiorly around the plantar fascia and the medial 50% of the plantar fascia was released via a plantar fasciotomy. The infracalcaneal spur was felt, and was carefully resected using a powered rasp. Resection of the infracalcaneal spur was confirmed using intraoperative fluoroscopy. Images pre and post infracalcaneal spur resection were saved. The site was flushed out with copious amounts of normal saline solution. The skin was reapproximated using 3-0 Nylon. The pneumatic tourniquet was deflated, and there was immediate return of warmth and perfusion to the foot and to all toes on the foot with normal temperature gradient and CFT < 2 seconds to all toes. Total tourniquet was was 16 minutes. 5mL of 0.5% Bupivacaine was given as a local block around the surgical site for further post op pain control. Hemostasis was achieved. A dressing was applied which consisted of Betadine soaked adaptic, 4x4 gauze, Kerlix and rafael bandage. Right peroneus brevis tendon debridement/repair: Attention was directed to the peroneal tendons, were a longitudinal skin incision was made over the peroneal tendons of the lateral ankle and hindfoot. Careful dissection was completed through the subcutaneous tissue to the peroneal retinaculum and peroneal tendon sheath. These were carefully incised and the peroneal tendons were visualized. It was noted there was significant tenosynovitis within the peroneal tendon sheath. It was noted there was a significant longitudinal split tear of the peroneus brevis tendon at the level of the lateral malleolus. The peroneus brevis was flat. There was tendinosis and mucoid degeneration of the tendon present at this level. The peroneus brevis tendon was debrided of all nonviable, degenerative tendinosis and mucoid degenerative, also there was a very low laying peroneus brevis muscle belly which was significantly hypertrophied at this level, this low laying muscle belly was debrided decompressing the site. The debrided peroneus brevis tendon and muscle were sent to pathology as specimen. The peroneus longus tendon was visualized and noted to he healthy, viable, with no tears, tendinosis or mucoid degeneration noted. The site was flushed out with copious amounts of normal saline solution. The peroneus brevis tendon was tubularized using 3-0 Vicryl. The site was again flushed out with copious amounts of normal saline solution. The peroneal tendons were placed back into normal anatomic alignment. The peroneal tendon sheath as well as the peroneal retinaculum were reapproximated using 0 Vicryl. The subcutaneous tissue was reapproximated using 3-0 Vicryl. The skin was reapproximated using 4-0 Monocryl. Right lateral ankle/hindfoot stabilization: The ankle and hindfoot were stressed, there was some instability to the ankle but there was significant calcaneal inversion at the level of the subtalar joint consistent with subtalar instability. A curvilinear skin incision was made to the lateral ankle using a 15 scalpel blade. Careful dissection was completed down through the subcutaneous tissue to the anterior talofibular ligament and calcaneofibular ligament of the lateral ankle. It was noted the anterior talofibular ligament and calcaneofibular ligaments were lax causing instability, but more so subtalar instability. The attenuated anterior talofibular ligament was tightened. 2 x Arthrex Fibertaks were placed to the anterior aspect of the lateral malleolus to stabilize the anterior talofibular ligament and lateral ankle. The lateral ankle was stabilized using an Arthrex internal brace, in which a talar tunnel, 1 fibular tunnel and 1 calcaneal tunnel were created to follow the course of the anterior talofibular ligament and calcaneofibular ligaments when placing the Internal brace. The ankle and foot were placed in neutral position. The anterior talofibular ligament was repaired to proper tension with the suture from the Fibertaks across the anterior talofibular ligament and also incorporating the extensor retinaculum for additional stability. The Internal Brace bone anchors were placed with the fiber tape secured in place to proper tension with ankle and foot in neutral position to provide excellent stability to the lateral ankle and hindfoot across the calcaneofibular and anterior talofibular ligaments. Attention was made to make sure not to over tighten, and all anchors in bone were not in joints. Intra operative fluoroscopy was used to ensure this as needed. The subcutaneous tissue was reapproximated using 3-0 Vicryl. The skin was reapproximated using 4-0 Monocryl. Overlying steristrips applied across the incision site. The right ankle and foot were put through range of motion and was gliding normally with no popping, clicking or crepitus. There was negative anterior drawer sign and normal range of motion present with resolved instability at this time. There was normal amount of ankle/foot inversion at this time, and the stabilization felt very solid. It was not lax nor over tightened at this time. There was excellent stability present. Intraoperative fluoroscopy stress views were obtained at end of the procedure which confirmed negative anterior drawer to the ankle, and no abnormal talar tilt or calcaneal inversion. No evidence of complications were present both clinically nor on the imaging. Images were saved. The pneumatic tourniquet was deflated, and there was immediate return of warmth and perfusion to the foot and to all toes on the foot with normal temperature gradient and CFT < 2 seconds to all toes. Total tourniquet was was 117 minutes on the right side. 20mL of 0.5% Bupivacaine was given as a local block around the surgical site for further post op pain control. Hemostasis was achieved. A dressing was applied which consisted of Betadine soaked adaptic, 4x4 gauze, Kerlix and rafael bandage, and a well padded below knee posterior splint w/ foot/ankle in some equinus and eversion. The patient tolerated the above operative procedure well at the anesthesia well with no complication. The patient was transported to the recovery room with vital signs stable and in good condition. Patient received a right popliteal block in recovery by the anesthesia team. Post operative orders were placed. Post operative instructions were reviewed with her. No weightbearing to the right and left foot, keep feet elevated for at least 50 minutes of every hour, keep dressing clean, dry and intact. Prescription for Percocet 5mg/325mg was prescribed: 1-2 tabs PO q 6 hours PRN pain for pain control, Xarelto 10mg once a day for DVT prophylaxis, and patient also requested 1 dose of Diflucan in case needed due to her history of thrush from antibiotic. Reviewed with pharmacist Marshal. Post operative xrays right and left foot, and right ankle xrays were obtained and reviewed - confirmed infracalcaneal spur resection, and right ankle stabilization, no post operative complications. She is to follow up with me within 1 week or sooner if needed. Grafts/Implants Used: Arthrex internal brace - Complications None
--- NOTE | 2020-04-20 13:00 | RAD_ITS ---
STUDY: X-RAY - LEFT FOOT CLINICAL: Female, 49 years old. Postop. TECHNIQUE: 2 view(s) of the foot. COMPARISON: Left foot, April 20, 2020. Left foot, February 29, 2020. FINDINGS: Is absence of the calcaneal spur seen on the earlier study. Normal talus and tarsal bones. Normal visualized subtalar, talonavicular, calcaneocuboid, tarsal and tarsometatarsal articulations. Normal metatarsi. Normal metatarsophalangeal joint of the great toe. Normal tibial and fibular sesamoid bones. Normal interphalangeal joint of the great toe. Normal phalanges of the great toe. Normal second through fifth metatarsophalangeal joints. Normal interphalangeal joints and phalanges of the lesser toes. The soft tissue structures are unremarkable. RAD/Foot 2 Views IMPRESSION: Status post resection of a plantar spur. Electronically Signed: Martin Machado DO at 17:07 EDT Tel [phone], Service support ,
--- NOTE | 2020-04-20 13:00 | RAD_ITS ---
STUDY: X-RAY - RIGHT ANKLE REASON FOR EXAM: Female, 49 years old. Postop. TECHNIQUE: 4 view(s) of the ankle. COMPARISON: Right foot, February 29, 2020. Right foot and ankle, April 20, 2020. FINDINGS: Normal visualized distal tibia and fibula. Normal medial and lateral malleoli. Normal tibiotalar articulation and ankle mortise. Normal visualized talus now there is now a lucency in the calcaneus just below the posterior talocalcaneal joint. On the AP film, this forms a tunnel extending into the central calcaneus. The plantar spur is no longer present. The visualized subtalar, talonavicular, calcaneocuboid and tarsal articulations are normal. The soft tissue structures are unremarkable. RAD/Ankle min 3 Views IMPRESSION: Surgical changes of the calcaneus. Electronically Signed: Martin Machado DO at 17:08 EDT Tel [phone], Service support ,
--- NOTE | 2020-04-20 13:00 | RAD_ITS ---
STUDY: X-RAY - RIGHT FOOT CLINICAL: Female, 49 years old. Postop. TECHNIQUE: 2 view(s) of the foot. COMPARISON: Right foot, February 29, 2020. FINDINGS: Normal talus and tarsal bones. There is interval resection of a plantar spur seen on the earlier study. There is now a tunnel in the calcaneus just below the posterior talar calcaneal joint not previously seen. Normal visualized subtalar, talonavicular, calcaneocuboid, tarsal and tarsometatarsal articulations. Normal metatarsi. Normal metatarsophalangeal joint of the great toe. Normal tibial and fibular sesamoid bones. Normal interphalangeal joint of the great toe. Normal phalanges of the great toe. Normal second through fifth metatarsophalangeal joints. Normal interphalangeal joints and phalanges of the lesser toes. The soft tissue structures are unremarkable. RAD/Foot 2 Views IMPRESSION: Surgical changes of the calcaneus. Electronically Signed: Martin Machado DO at 17:08 EDT Tel [phone], Service support ,
[2020-04-20 13:46] LABS: International Normalized Ratio 1.3; Prothrombin Time (Protime)PT. 15.3 SECONDS (11.7-14.9)
[2020-04-20 13:47] LABS: Partial Thromboplast Time 37.3 Seconds (24.1-36.2)
== END 2020-04-20 14:34 | disposition home or self-care (01) ==
LOC: SDC 06:56 → AC 06:58
PROVIDERS: PCP Family Medicine; Referring Provider Podiatrist; Visit Provider Podiatrist
PROC: (CPT 28119; principal; 2020-04-20 08:15)
DX: M72.2 Plantar fascial fibromatosis (principal); M77.31 Calcaneal spur, right foot; M25.371 Other instability, right ankle; G89.29 Other chronic pain; K21.9 Gastro-esophageal reflux disease without esophagitis; F32.9 Major depressive disorder, single episode, unspecified; F41.9 Anxiety disorder, unspecified
CPT/HCPCS: 01480; 28119; 28200; 73610; 73620; 73650; 76000; 85610; 85730; 87635; 88304; G2023; J7120; J2405; U0003

== ENCOUNTER → 2020-07-03 08:00 | Outpatient (CLI) | payer OTHER, SELFPAY ==
[2020-04-20 07:14] VITALS: BMI 36.1
== END ==
PROVIDERS: Anesthesiology; PCP Family Medicine; Referring Provider Obstetrics & Gynecology; Visit Provider Obstetrics & Gynecology
DX: Z11.59 Encounter for screening for other viral diseases (principal)
CPT/HCPCS: 87635; C9803; U0003

== ENCOUNTER 2020-07-16 16:30 | Outpatient (RCR) | payer OTHER, SELFPAY ==
[2020-04-20 07:14] VITALS: BMI 36.1
--- NOTE | 2020-06-18 14:14 | HP.PTEVAL ---
Patient's Visit Information BRISSA STEELE is a 49 year old F referred to Physical Therapy by Dr. Philip Mendez DPM with a diagnosis of B plantarfsciotomy. Date of Evaluation: 06/18/20 Physical Therapist: Shlomo Solano PT, ATC - Visit Plan Frequency: 2-3x /Week Duration: 4-6 Weeks Plan: B ankle stretching and strengthening, balance and proprio, nustep, and HEP - Subjective DOS: 04/20/20. Pt had B peroneal tendon debridement and plantarfasciotomy. Pt reports she is happy with the results. Pt notes she was in a lot of pain prior to having the surgery. 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 Pt reports she has tingling and numbness in R LE from the midfoot to the ankle. Pt notes it is getting better. Pt reports she is unable to ambulate for a long distance, and notes stair negotiation is still very difficult at this time. 0/10 pain at rest, 5/10 pain at worst (with prolonged ambulation) - Pain B foot pain Pain Intensity (Out of 10): 0 Pain Intensity Range: 5 - Objective Neuro: B LE sensation is WNL to light touch. Observation: Incisions ;healed at this time. No signs of infection. Girth: B ankle 53 cm. ROM: R ankle DF= 5, PF= 65; L ankle DF= 10, PF= 65. MMT: B ankles are 4/5 throughout. Gait: Pt is able to ambulate greater than 1000' without difficulty - Goals Goal 1:: Decrease B foot pain x 50% to aid with sleep Goal Time Frame: 4-6 Weeks Goal 2:: Increase B ankle DF ROM x 5-10 degrees to aid wtih restoring gait Goal Time Frame: 4-6 Weeks Goal 3:: Increase B ankle strength x 1 grade to aid with stair negotiation Goal Time Frame: 4-6 Weeks Goal 4:: I with HEP Goal Time Frame: 4-6 Weeks - Rehabilitation Potential Physical Therapy Diagnosis: B foot pain, decreased ROM, and B ankle weakness secondary to B foot plantarfasciotomy Rehabilitation Potential: Good - Anticipated Interventions Patient/Client Instruction: Educate patient on: Condition, Plan of Care For the Purpose of:: To improve self management Therapeutic Exercise to Include: Strength training, Endurance training, Flexibilty training, Gait and locomotor training, Passive ROM, Active ROM, Dynamic Lumbar Stabilization For the Purpose of:: To decrease pain, To increase ROM, To improve muscle performance and motor function Cryotherapy (ice pack, ice massage): Yes For the Purpose of:: To decrease pain Thank you for the opportunity to evaluate your patient. For Medicare and Medicare HMO plans, please review the plan of care and approve it. It will need to be FAXED BACK to us at [phone] for Medicare purposes. For Medicare only, by signing this I certify the plan of care. Please let me know if there are questions or concerns regarding this plan of care. Physician Signature: Date:
--- NOTE | 2020-07-16 17:08 | HP.PTDCSUM ---
It has been my pleasure to treat BRISSA STEELE referred by Dr. Philip Mendez, DPM, with the diagnosis of B plantarfsciotomy for a total of 11 visit(s). Discharge Date: Please see the following information for a summary of their discharge status. Subjective: Pt reports she is very sore today afer working all last night B foot pain Pain Intensity (Out of 10): 8 % Improvement: 50 Objective/Function: B foot pain 8/10 currently. B ankle DF ROM 10 degrees. B ankle MMT: 5/5 throughout. Pt is I with HEP Goal 1:: Decrease B foot pain x 50% to aid with sleep Goal Progress: Progressing Goal 2:: Increase B ankle DF ROM x 5-10 degrees to aid wtih restoring gait Goal Progress: Goal Met Goal 3:: Increase B ankle strength x 1 grade to aid with stair negotiation Goal Progress: Goal Met Goal 4:: I with HEP Goal Progress: Goal Met Plan: Discontinue to HEP If there are questions or concerns regarding this patient's physical therapy, please feel free to call me at [phone]. Thank you for the referral of this patient. Sincerely, Shlomo Solano, PT, ATC
== END 2020-07-16 19:00 | disposition home or self-care (01) ==
LOC: PT 16:30
PROVIDERS: PCP Family Medicine; Referring Provider Podiatrist; Visit Provider Podiatrist
DX: Z47.89 Encounter for other orthopedic aftercare (principal)
CPT/HCPCS: 97110; 97161; 97164

== ENCOUNTER → 2020-10-26 18:10 | Outpatient (CLI) | payer OTHER, SELFPAY ==
[2020-07-05 11:29] VITALS: BMI 36.1
--- NOTE | 2020-10-26 18:12 | US_ITS ---
STUDY: ULTRASOUND OF THE FEMALE PELVIS - COMPLETE REASON FOR EXAM: Female, 50 years old. LLQ PAIN LMP: Status post hysterectomy. TECHNIQUE: Transabdominal and Transvaginal TECHNICAL QUALITY: Adequate. COMPARISON: 01/07/2019 FINDINGS: Status post hysterectomy. The right ovary is visualized. The right ovary measures 3.2 x 2.6 x 2.4 cm. There is no right ovarian cyst or ovarian mass. 2.2 cm dominant follicle the right ovary. There is no visualized right adnexal mass or complex lesion. There is normal arterial and normal venous vascularity. The left ovary is visualized. The left ovary measures 2.8 x 2.3 x 2.2 cm. There is no left ovarian cyst or ovarian mass. 1.5 cm follicle the left ovary There is no visualized left adnexal mass or complex lesion. There is normal arterial and normal venous vascularity. There is no fluid in the cul-de-sac. The pre void volume of the bladder was ml. The post void volume of the bladder was ml. Polycystic ovary disease: No. US/Pelvic (Non ) IMPRESSION: Normal female pelvis after hysterectomy. Electronically Signed: Fadi Leroy MD at 7:08 EST Tel , Service support ,
--- NOTE | 2020-10-26 18:12 | US_ITS ---
STUDY: ULTRASOUND OF THE FEMALE PELVIS - COMPLETE REASON FOR EXAM: Female, 50 years old. LLQ PAIN LMP: Status post hysterectomy. TECHNIQUE: Transabdominal and Transvaginal TECHNICAL QUALITY: Adequate. COMPARISON: 01/07/2019 FINDINGS: Status post hysterectomy. The right ovary is visualized. The right ovary measures 3.2 x 2.6 x 2.4 cm. There is no right ovarian cyst or ovarian mass. 2.2 cm dominant follicle the right ovary. There is no visualized right adnexal mass or complex lesion. There is normal arterial and normal venous vascularity. The left ovary is visualized. The left ovary measures 2.8 x 2.3 x 2.2 cm. There is no left ovarian cyst or ovarian mass. 1.5 cm follicle the left ovary There is no visualized left adnexal mass or complex lesion. There is normal arterial and normal venous vascularity. There is no fluid in the cul-de-sac. The pre void volume of the bladder was ml. The post void volume of the bladder was ml. Polycystic ovary disease: No. US/Transvaginal Non- IMPRESSION: Normal female pelvis after hysterectomy. Electronically Signed: Fadi Leroy MD at 7:08 EST Tel , Service support ,
== END ==
PROVIDERS: PCP Family Medicine; Referring Provider Obstetrics & Gynecology; Visit Provider Obstetrics & Gynecology
DX: R10.2 Pelvic and perineal pain (principal); G89.29 Other chronic pain
CPT/HCPCS: 76830; 76856

== ENCOUNTER 2020-11-06 08:52 | Day surgery (SDC) | payer OTHER, SELFPAY ==
[2020-07-05 11:29] VITALS: BMI 36.1
[2020-11-05 10:55] VITALS: BMI 37.7
[2020-11-06] VITALS (8 sets, daily range): BP systolic 95–116; BP diastolic 57–71; PULSE 66–87; RESP 16; TEMP 36.2–36.5; O2SAT 93–98; BMI 37.8
--- NOTE | 2020-11-06 | OV_PTH ---
PATIENT: BRISSA STEELE LOC: [facility] [place] U#:[id number] AGE/SX: 50/F ROOM: RE11/06/[address]: Dr. Navya Mead MD : [id number] BED: DIS: 11/06/2020 SPEC #: [id number] RECD: 11/06/20 13:52 STATUS: YUAN GERMAIN #: [id number] AMINA: 11/06/20 00:[address]: Navya Mead DEPT: SURGICAL PATHOLOGY RECD BY: Rafat Holliday ENTERED: 11/07/20 09:32 SP TYPE: OVARY OTHR DR: Dr. Tequila Lujan MD Tissues: Ovary, NOS Procedures: Surgery Specimen Level IV HEADER OPERATION: Laparoscopic oophorectomy PRE-OP DIAGNOSIS: Chronic pelvic pain; suspect endometriosis TISSUE SUBMITTED: Bilateral ovaries MICROSCOPIC DIAGNOSIS Right and left ovaries, bilateral oophorectomies: Follicular and corpus luteal cysts. AM:ana 11/08/2020 MICROSCOPIC DESCRIPTION Slides are reviewed. GROSS DESCRIPTION Received in fixative is one container labeled with the patient's name and designated bilateral ovaries. The specimen consists of two smooth, glistening, cystic ovaries. One ovary measures 3.5 x 3 x 1.5 cm. Serial sections of this ovary reveals multiple cysts ranging in size from 0.5 to 1.5 cm and containing clear fluid. Track Hoe Operator sections of this ovary is submitted in cassettes 1 & 2. The other ovary is smooth, glistening and cystic and measures 3.5 x 2.5 x 2.5 cm. Serial sections reveal a single large cyst measuring 3.3 cm in greatest dimension and containing clear fluid. Track Hoe Operator sections of the second ovary is submitted in cassettes 3 & 4. / AM:ana 11/07/20 TC:[address] [facility]: [id number]
--- NOTE | 2020-11-06 07:52 | PCM.HPOB.BLA ---
- Problem List (1) Chronic pelvic pain in female Status: Chronic Comment: nl pelvic us. suspect endometriosis. pain resolved with depot lupron. plan laparoscopic BSO for definitive therapy History and Physical Date of Admission: 11/06/20 Intake Vital Signs 11/05/20 Height 5 ft 3 in 11/05/20 Weight: 213 lb 11/05/20 BP 124/92 H Intake Visit Reasons: lap. 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: No Is patient in pain?: No Allergies morphine Adverse Reaction (Verified 11/05/20 10:55) Vomiting Medications lansoprazole 30 mg capsule,delayed release 30 mg PO DAILY 02/20/20 [History Confirmed 11/05/20] pregabalin 200 mg capsule 200 mg PO DAILY 02/20/20 [History Confirmed 11/05/20] venlafaxine 150 mg capsule,extended release 24 hr 150 mg PO DAILY #30 cap 07/05/20 [Rx Confirmed 11/05/20] venlafaxine 75 mg capsule,extended release 24 hr 75 mg PO DAILY #30 cap 07/05/20 [Rx Confirmed 11/05/20] leuprolide 7.5 mg intramuscular syringe kit 15 mg IM [id number] #1 ea 08/31/20 [Rx Confirmed 11/05/20] Is last menstrual period known: No Post menopausal: No Patient : No : No PFSH Medical History History of parotid cancer (Acute) Knee pain (Acute) Right trigeminal neuralgia (Acute) Surgical History (Updated 11/05/20 @ 10:56 by Marian Harvey) History of foot surgery (Acute) H/O parotidectomy (Resolved) H/O: hysterectomy (Resolved) History of D&C (Resolved) History of arthroscopy of right knee (Resolved) History of section (Resolved) Family History Mother Heart disease Hypertension CVA (cerebral vascular accident) Social History (Updated 11/05/20 @ 13:[address] Navya Mead MD) Smoking Status: Never smoker alcohol intake: never substance use type: does not use caffeine: Yes what type of physical activity do you participate in: none seatbelt use: always do you feel safe at home: Yes additional social history: Baojgef-Znnk-Menygvf Comfort Control Patient is JAMIE at [employer] HPI lap. BSO: Details: BRISSA STEELE is a 50 year old who presents for chronic pelvic pain. she had pain managed with depot lupron in the past. Pregancy History 4 Elective abortions Hx Para 4 Spontaneous abortions Hx # Term Pregnancies Ectopic pregnancies Hx # Pregnancies Multiple births # of living children Past Pregnancies Del. Date Name GA/Weeks Outcome Route Bth Weight Infant Gen Labor Lgth Anesthesia Del Locatn Provider FOB Unknown George-1996 Unknown Kevin-1999 Unknown Francisco-2003 Unknown Josie-2003 ROS Const Constitutional: Denies fatigue, fever(s), headache(s), increased appetite, poor appetite, weight gain or weight loss Cardio Card: Denies chest pain Resp Resp: Denies cough or dyspnea GI GI: Reports as per HPI; denies abdominal pain, constipation, nausea or vomiting : Reports as per HPI and pelvic pain; denies difficulty urinating or painful urination Skin Skin/Breast: Denies change in hair, breast lump, breast pain or breast skin changes Exam Const General: cooperative, healthy appearing, comfortable, no acute distress, well developed Orientation: alert HENMT Head: normal to inspection, normocephalic Neck Neck: normal visual inspection, trachea midline Thyroid: thyroid normal Resp Effort & Inspection: normal respiratory effort GI Inspection: normal to inspection, non-distended Palpation: soft, no hepatosplenomegaly Skin General: no rashes or lesions noted Assessment & Plan Problems 1. Chronic pelvic pain in female R10.2; G89.29 nl pelvic us. suspect endometriosis. pain resolved with depot lupron. plan laparoscopic BSO for definitive therapy Plan After discussing the patient's diagnosis and treatment plan options, patient wishes to proceed with surgical management. I have discussed with the patient the risks, benefits, and alternatives of the procedure which include but are not limited to risks of anesthesia, bleeding, infection, possible damage to bowel, bladder, or surrounding vasculature which could lead to additional surgery to evaluate any complications. Patient agrees to procedure and wishes to proceed. ACOG/uptodate references given for additional information regarding procedure. Coding Level of Care Code No Charge Diagnoses Chronic pelvic pain in female R10.2; G89.29
[2020-11-06] MEDS: Lactated Ringers 1,000 ML 125 ML IV (09:54)
[2020-11-06 09:55] LABS: Hematocrit 37.9 % (37-47); Hemoglobin 12.7 g/dL (12.0-15.0); Mean Corp Hgb Conc 33.5 g/dL (32-36); Mean Corpuscular Hgb 29.4 pg (27.0-32.0); Mean Corpuscular Volume 87.7 fL (81-99); Mean Platelet Vol. 10.8 fl (6.2-12.0); Platelet Count 215 K/mm3 (150-450); RBC Distribution Width CV 13.1 % (11.6-14.6); RBC Distribution Width SD 42.7 fl (35.1-43.9); Red Blood Count 4.32 M/mm3 (4.2-5.4); White Blood Count 5.9 K/mm3 (4.4-11.0)
--- NOTE | 2020-11-06 10:20 | OP.PCM_ITS ---
Problem List (1) Chronic pelvic pain in female Status: Chronic Comment: nl pelvic us. suspect endometriosis. pain resolved with depot lupron. plan laparoscopic BSO for definitive therapy Report of Operation Date of Procedure: 11/06/20 Pre-Operative Diagnosis: chronic pelvic pain Post-Operative Diagnosis: same plus left sigmoid scar tissues Surgery/Procedure Performed:: laparoscopic bilateral oophorectomy Description of Surgical Findings:: left sigmoid to pelvic side wall scar tissue, bilateral multicystic ovaries white sugar boiler: Dominique Allen Type of Anesthesia:: General Special Medications: none Specimen's removed: ovaries Drains: horn Estimated Blood Loss (mL): minimal Fluids Replaced: crystalloid Description of Procedure: Patient was taken to the operating room and placed under general anesthesia was prepped and draped in normal sterile fashion in the dorsolithotomy position. Bladder was drained clear urine and SCDs were on preoperatively. Sponge stick was placed in the vagina. Quarter percent Marcaine and it elevated with towel clamps 12 mm infraumbilical incision was made and varies needle entered into the abdomen confirmed the intra-abdominal with an opening pressure of 4 mmHg pressure abdomen is insufflated with CO2 gas and a 5 mm port was placed under direct visualization using the Optiview port. Left and right lower quadrant 5 mm Optiview trochars were placed under direct visualization without complication and the umbilical port was swapped for a 12 mm port. Bilateral ovaries were well visualized and noted to have minimal scar tissue therefore they were transected using the LigaSure device across the base of the infundibulopelvic ligament bilaterally without complication. Scar tissue was seen in the left adnexa of the sigmoid colon to the left pelvic sidewall which was opened up sharply and bluntly with the LigaSure device. Drew placed over the area and excellent hemostasis noted. 2 other small omentum to anterior abdominal wall adhesions were seen and transected with the LigaSure device. Rest of the abdomen appeared to be within normal limits minimal scar tissue in the vaginal cuff but some thickening over the bladder seen. Upper abdomen within normal limits. Ovaries were then placed into a bag and removed through the umbilical port site and the fascia was closed at the umbilicus using a Jeff Mcneill with 0 Vicryl. All port sites were removed and the abdomen was deflated of gas. All port sites were closed with 4-0 Monocryl all instruments removed from the patient and patient was awoken and taken recovery in stable condition. Grafts/Implants Used: none - Complications none - Admit VTE Documentation VTE Present on Admission: No VTE Mechan Device Prophylaxis: SCD's Multi Select Codes - Urinary/Genital Urinary/Genital CPT Codes: 21504 Laproscopic BS/O
--- NOTE | 2020-11-06 10:22 | DCINST_ITS ---
Discharge Diet: No Restrictions - Increase fluid intake for the next 48 hours. Discharge Activity: Return to Normal Activity, May Drive - when you are no longer taking narcotic pain medications., May Shower, May Take a Tub Bath - in 7 days Additional Activity Instructions:: Ambulate often the next week after surgery. Nothing in the vagina for 5 days. Call your doctor if your incision/area has: Continuous Slow Oozing, Sudden Increased Bleeding, Increased Pain/ Swelling, Increased Redness, Foul Smelling Discharge Call your doctor if you observe: Fever of 101 or Higher Allergies/Adverse Reactions: Allergies morphine Adverse Reaction (Verified 11/06/20 09:21) Vomiting Medications to take at Discharge lansoprazole 30 mg capsule,delayed release 60 mg PO DAILY 02/20/20 pregabalin 200 mg capsule 200 mg PO DAILY 02/20/20 venlafaxine 150 mg capsule,extended release 24 hr 150 mg PO DAILY #30 cap 07/05/20 venlafaxine 75 mg capsule,extended release 24 hr 75 mg PO DAILY #30 cap 07/05/20 leuprolide 7.5 mg intramuscular syringe kit 15 mg IM [id number] #1 ea 08/31/20 Naproxen [Naprosyn] 250 - 500 mg PO Q8H PRN PRN #30 tab 11/06/20 Oxycodone HCl/Acetaminophen [Percocet 5-325] 1 - 2 tablet PO Q6H PRN PRN 7 Days #15 tablet 11/06/20 The following prescriptions were given: Naproxen [Naprosyn] 250 - 500 mg PO Q8H PRN PRN #30 tab PRN Reason: MILD PAIN Transmission Status: Pending to [facility] Oxycodone HCl/Acetaminophen [Percocet 5-325] 1 - 2 tablet PO Q6H PRN PRN 7 Days #15 tablet PRN Reason: Pain Transmission Status: Sent to [facility] Orders to be completed after discharge: Type & Screen - PAT ONLY Time Frame: 11/06/20, Facility: [facility], Location: Laboratory Primary Care Physician: Tequila Lujan MD [Primary Care Provider] - Test Results: Test results from this visit will be discussed in further detail at your follow- up appointment, if applicable. Please Follow Up With: Navya Mead MD - [phone]
[2020-11-06] MEDS: Bupivacaine 0.25% 30 ML Vial (11:16)
== END 2020-11-06 13:49 | disposition home or self-care (01) ==
LOC: SDC 08:52 → AC 08:52
PROVIDERS: PCP Family Medicine; Referring Provider Obstetrics & Gynecology; Visit Provider Obstetrics & Gynecology
PROC: (CPT 58661; principal; 2020-11-06 10:15)
DX: N83.12 Corpus luteum cyst of left ovary (principal); N83.11 Corpus luteum cyst of right ovary; R10.2 Pelvic and perineal pain; G89.29 Other chronic pain
CPT/HCPCS: 00840; 58661; 85027; 86850; 86900; 86901; 87426; 88305; C9803; J7120; J2405

== ENCOUNTER 2021-12-06 09:09 | Outpatient (CLI) | payer OTHER, SELFPAY ==
--- NOTE | 2021-12-06 09:22 | RAD_ITS ---
STUDY: X-RAY - LUMBOSACRAL SPINE REASON FOR EXAM: Female, 51 years old. M54.50 TECHNIQUE: 6 view(s) of the lumbosacral spine were obtained. COMPARISON: None FINDINGS: Normal lumbar lordosis. There is no substantial scoliosis. There is normal alignment of the vertebrae. Normal vertebral bodies and endplates. Normal disc space heights. Normal bilateral sacral ala, sacroiliac joints, and visualized sacrum. No instability on the flexion or extension Normal visualized soft tissue structures. RAD/L/S Spine Comp/w Bending Views IMPRESSION: Normal x-ray examination of the lumbosacral spine. Electronically Signed: Jose Leiva MD at 12:01 EST ,
== END 2021-12-06 23:59 | disposition home or self-care (01) ==
LOC: RAD 09:12
PROVIDERS: PCP Family Medicine; Visit Provider Anesthesiology Pain Medicine
DX: M54.50 Low back pain, unspecified (principal)
CPT/HCPCS: 72114

== ENCOUNTER 2021-12-06 12:30 | Emergency (ER) | payer OTHER, SELFPAY ==
[2021-12-06 12:31] VITALS: BP 135/75; PULSE 100; RESP 16; TEMP 36; O2SAT 98; BMI 36.8
[2021-12-06] MEDS: Orphenadrine 60 MG/2 ML Ampul 30 MG IM (13:19)
[2021-12-06] MEDS: 0.9% Normal Saline 1,000 ML 999 ML IV (13:19)
[2021-12-06 13:20] LABS: Absolute Lymphocyte Count 1.24 X10^3/uL (0.83-4.51); Absolute Neutrophil Count 11.2 X10^3/uL (2.0-7.7); Basophil# 0.01 X10^3/uL; Basophil% 0.1 % (0-1); Hematocrit 46.9 % (37-47); Lymphocyte # 1.24 X10^3/ul (0.83-4.51); Lymphocyte % 9.6 % (19-41); Mean Corpuscular Hgb 30.1 pg (27.0-32.0); Mean Corpuscular Volume 94.2 fL (81-99); Mean Platelet Vol. 11.1 fl (6.2-12.0); Monocyte# 0.43 X10^3/uL; Monocyte% 3.3 % (0-10); NRBC Flagged by Analyzer 0 % (0-5); Neutrophil # 11.22 X10^3/uL (2.7-7.7); Neutrophil % 86.6 % (47-70); Platelet Count 289 K/mm3 (150-450); RBC Distribution Width SD 48.3 fl (35.1-43.9); Red Blood Count 4.98 M/mm3 (4.2-5.4)
[2021-12-06] MEDS: Ketorolac 15 MG/ML Vial IV (13:20)
[2021-12-06 13:29] LABS: Anion Gap 7 (5-15); BUN 12 mg/dL (7-18); BUN/Creat Ratio 12.7 RATIO (10-20); Calcium,Total 9.7 mg/dL (8.5-10.1); Chloride 107 mmol/L (98-107); Creatinine, Serum 0.95 mg/dL (0.55-1.02); EST Glomerular Filtration Rate 67 mL/min (>60); Est Glom Filt Rate - Afr Amer 81 mL/min (>60); Estimated Creatinine Clearance 61.86 ml/min; Glucose 114 mg/dL (74-106); Potassium 3.6 mmol/L (3.5-5.1); Sodium Level 138 mmol/L (136-145)
--- NOTE | 2021-12-06 14:01 | CT_ITS ---
STUDY: CT ABDOMEN AND PELVIS WITHOUT CONTRAST REASON FOR EXAM: Female, 51 years old. Right flank pain RADIATION DOSAGE (If Supplied By Facility): CTDIvol = ( 21.74 ) mGy, DLP = ( 1065.53 ) mGycm TECHNIQUE: Transaxial images were obtained from the dome of the diaphragm to the symphysis pubis without oral contrast, and without intravenous contrast. Sagittal and coronal images were reconstructed. Individualized dose optimization techniques were used for this CT. COMPARISON: None. FINDINGS: The visualized lung bases are unremarkable. The visualized portions of the heart are within normal limits. Normal liver. Normal gallbladder and extrahepatic biliary system. Normal spleen. Normal pancreas. Normal bilateral adrenal glands. Normal right kidney. Normal left kidney. Normal visualized stomach. Normal small intestine. Retained stool noted throughout the colon. The appendix is visualized and appears normal. Appendix seen on coronal recon image 95 Normal abdominal aorta. Normal inferior vena cava. Nonspecific induration of the mesenteric fat Normal urinary bladder. There is a small umbilical hernia containing fat. Normal osseous structures. CT/Abdomen/Pelvis without Cont IMPRESSION: No suspicious solid organ abnormality, specifically, no CT evidence of obstructive uropathy. Retained stool throughout the colon No free intraperitoneal fluid, air, or suspicious adenopathy. There is nonspecific induration of the mesenteric fat Electronically Signed: Jose Leiva MD at 14:55 EST ,
[2021-12-06] MEDS: HYDROmorphone 0.5 MG/0.5 ML SYRINGE IV (14:13)
[2021-12-06 15:17] LABS: Mucous, Urine 0 SEEN /hpf (<or=2+); Red Blood Cells-Urine 0 SEEN /hpf (0-5); White Blood Cells 0 SEEN /hpf (0-5)
--- NOTE | 2021-12-06 15:19 | ED.VIS.BACK ---
HPI History of Present Illness Chief Complaint: Back Narrative Narrative: Patient presenting with lower back pain. She states she was just seen by her pain management doctor for this. He prescribed her Percocet. She states her back is more in spasm now. She states it is mostly left-sided. She states that it feels like it spasming but also feels like pressure. She denies urinary or vaginal complaints. He denies cough patient or diarrhea. No fever or chills. No loss of bladder or bowel control no saddle anesthesia. [facility] Medical History History of parotid cancer Knee pain Right trigeminal neuralgia Home Medications lansoprazole 30 mg capsule,delayed release 60 mg PO DAILY 02/20/20 [History Last Taken 11/06/20] pregabalin 200 mg capsule 200 mg PO DAILY 02/20/20 [History Last Taken 11/06/20] venlafaxine 150 mg capsule,extended release 24 hr 150 mg PO DAILY #30 cap 07/05/20 [Rx Last Taken 11/06/20] venlafaxine 75 mg capsule,extended release 24 hr 75 mg PO DAILY #30 cap 07/05/20 [Rx Last Taken Unknown] leuprolide 7.5 mg intramuscular syringe kit 15 mg IM [id number] #1 ea 08/31/20 [Rx Last Taken Unknown] naproxen 250 - 500 mg PO Q8H PRN PRN #30 tab 11/06/20 [Rx Last Taken Unknown] estradiol 0.075 mg/24 hr weekly transdermal patch 1 patch TRANSDERMAL QWEEK #4 ea 07/15/21 [Rx Last Taken Unknown] tizanidine [Zanaflex] 4 mg PO Q8H PRN #20 cap 12/06/21 [Rx Last Taken Unknown] Allergy/AdvReac Type Severity Reaction Status Date / Time morphine AdvReac Vomiting Verified 11/19/20 09:06 Family History Mother Heart disease Hypertension CVA (cerebral vascular accident) Surgical History H/O bilateral oophorectomy H/O parotidectomy H/O: hysterectomy History of arthroscopy of right knee History of section History of D&C History of foot surgery Social History Smoking Status: Never smoker alcohol intake: never substance use type: does not use caffeine: Yes what type of physical activity do you participate in: none seatbelt use: always do you feel safe at home: Yes additional social history: Wynraqi-Ztul-Vbsvprb Comfort Control Patient is [employer] at [facility] ROS ROS ED Constitutional Constitutional ED: Denies chills or fever(s) Eyes Eyes: Denies blurry vision or diplopia ENT ENT ED: Denies rhinorrhea or sore throat Cardiovascular Cardiovascular: Denies chest pain or palpitations Respiratory/Chest Respiratory/Chest: Denies dyspnea or sputum Gastrointestinal Gastrointestinal: Denies abdominal pain, nausea or vomiting Genitourinary Genitourinary ED: Denies dysuria or hematuria Musculoskeletal Musculoskeletal: Reports back pain Integumentary Denies abscess or rash Neurologic Neurologic: Denies headache(s) or weakness EXAM Physical Exam Const Vital Signs: 12/06/21 12:31 Temperature 96.8 F L Temperature Source Temporal Pulse Rate 100 Respiratory Rate 16 Blood Pressure 135/75 H Blood Pressure Mean 95 Pulse Ox 98 Oxygen Delivery Method Room Air Positive well nourished Constitutional Narrative: Appears to be in pain General Appearance ED: NAD; Negative for pallor HEENT Reports moist mucous membranes Negative for trauma Eyes PERRL and EOMs intact bilaterally Resp normal respiratory effort and clear to auscultation bilaterally Cardio regular rate and regular rhythm GI normal to inspection, nondistended, normoactive bowel sounds Back/Spine Back/Spine Narrative: Tenderness palpation left lumbar paraspinal musculature. No midline spinal deformity or step-off. Extremity normal to inspection General Extremety ED: Negative for edema General Extremity: Negative for edema Psych mental status grossly normal Skin General Skin Exam: Negative for jaundice or pallor MDM MDM MDM Narrative Medical decision making narrative: Patient took a Percocet prior to arrival. She states that it was in the hour. She still complaining of spasming and I did place an IV. She was given Toradol and Norflex IV. She still complains of spasms on reevaluation. She has allergy to morphine and was given 0.5 mg of Dilaudid. At this point I did some blood work and the patient had a 30,000 white count which could possibly be from demargination however given that she is in pain I did obtain a CT scan of the abdomen pelvis without contrast and there is no acute pathology other than she is constipated. Her BMP is normal and she not dehydrated. Patient reevaluated at 3:20 PM and states he feels much better and is ready to be discharged home. I will provide a prescription for muscle relaxers because he is unsure if she was had some called in for her. Patient will follow up with Dr. Mejia. Impression: 1. Lumbar strain Lab Data Attestation: I reviewed the patient's lab results. Labs: Laboratory Results - last 24 hr 12/06/21 12/06/21 12/06/21 12:57 12:57 15:12 WBC 13.0 H RBC 4.98 Hgb 15.0 Hct 46.9 MCV 94.2 MCH 30.1 MCHC 32.0 RDW Std Deviation 48.3 H RDW Coeff of Valente 14.0 Plt Count 289 MPV 11.1 Immature Gran % (Auto) 0.400 Neut % (Auto) 86.6 H Lymph % (Auto) 9.6 L [place] % (Auto) 3.3 Eos % (Auto) 0.0 Baso % (Auto) 0.1 Absolute Neuts (auto) 11.2 H Absolute Lymphs (auto) 1.24 Nucleated RBC % 0 Sodium 138 Potassium 3.6 Chloride 107 Carbon Dioxide 24.0 Anion Gap 7 BUN 12 Creatinine 0.95 Estim Creat Clear Calc 61.86 Est GFR (MDRD) Af Amer 81 Est GFR (MDRD) Non-Af 67 BUN/Creatinine Ratio 12.7 Glucose 114 H Calcium 9.7 Urine Color Yellow Urine Clarity Clear Urine pH 6.5 Ur Specific [place] 1.010 Urine Protein Negative Urine Glucose (UA) Normal Urine Ketones Negative Urine Occult Blood Negative Urine Nitrite Negative Urine Bilirubin Negative Urine Urobilinogen Normal Ur Leukocyte Esterase Negative Urine RBC 0 SEEN Urine WBC 0 SEEN Ur Squamous Epith Cells 0-5 SEEN Urine Bacteria RARE Urine Mucus 0 SEEN Radiography Diagnostic Testing: Clinical Impression(s) from Imaging Studies Abdomen/Pelvis CT 12/06/21 14:01 IMPRESSION: No suspicious solid organ abnormality, specifically, no CT evidence of obstructive uropathy. Retained stool throughout the colon No free intraperitoneal fluid, air, or suspicious adenopathy. There is nonspecific induration of the mesenteric fat Electronically Signed: Jose Leiva MD at 14:55 EST , Discharge Plan Triage Chief Complaint: Back ED Provider: Anson Ma Dx/Rx/DC Orders Instructions: ED Back Spasm, No Trauma Prescriptions: New tizanidine [Zanaflex] 4 mg capsule 4 mg PO Q8H PRN (Reason: muscle spasticity) Qty: 20 RF: 0 No Action pregabalin [Lyrica] 200 mg capsule 200 mg PO DAILY RF: 0 lansoprazole [Prevacid] 30 mg capsule,delayed release(DR/EC) 60 mg PO DAILY RF: 0 venlafaxine 150 mg capsule,extended release 24hr 150 mg PO DAILY Qty: 30 RF: 12 venlafaxine [Effexor XR] 75 mg capsule,extended release 24hr 75 mg PO DAILY Qty: 30 RF: 12 naproxen 250 MG tablet 250 - 500 mg PO Q8H PRN PRN (Reason: MILD PAIN) Qty: 30 RF: 1 Lupron Depot 7.5 mg syringe kit 15 mg IM [id number] Qty: 1 RF: 6 estradiol 0.075 mg/24 hr patch weekly 1 patch transdermal QWEEK Qty: 4 RF: 12 Primary Care Provider: Tequila Lujan Referrals: Tequila Lujan MD [Primary Care Provider] - Disposition Disposition: Home, Self Care
[2021-12-06 15:20] LABS: Color, Urine Yellow (Yellow); Glucose, Dipstick Normal (Normal); Ketone-Dipstick Negative (Negative); Leukocyte Esterase-Dipstick Negative /ul (Negative); Nitrite-Dipstick Negative (Negative); Occult Blood-Urine Negative /ul (Negative); Protein-Dipstick Negative (Negative); Urine Bilirubin Dipstick Negative (Negative); Urine Clarity Clear (Clear); Urine Urobilinogen Normal (Normal); Urine pH 6.5 (5.0 - 8.0)
[2021-12-06 15:26] LABS: Squamous Epithelial Cells - UA 0-5 SEEN /hpf (5-10)
[2021-12-06 15:27] LABS: Bacteria RARE /hpf (None Seen)
[2021-12-06 15:30] VITALS: PULSE 78; RESP 15; TEMP 36.3
== END 2021-12-06 16:01 | disposition home or self-care (01) ==
PROVIDERS: Emergency Provider Student in an Organized Health Care Education/Training Program; PCP Family Medicine; Visit Provider Student in an Organized Health Care Education/Training Program
DX: S39.012A Strain of muscle, fascia and tendon of lower back, initial encounter (principal); X58.XXXA Exposure to other specified factors, initial encounter
CPT/HCPCS: 74176; 80048; 81001; 85025; 96361; 96372; 96374; 96375; 99285; J7030; A4216

== ENCOUNTER → 2022-09-02 | Outpatient (CLI) | payer OTHER, SELFPAY ==
--- NOTE | 2022-09-02 17:30 | RAD_ITS ---
STUDY: X-RAY CHEST REASON FOR EXAM: Female, 51 years old. cough TECHNIQUE: PA and lateral views of the chest. COMPARISON: 05/13/2018 FINDINGS: The lungs are clear and expanded. There is no demonstrated pleural abnormality. Normal size heart. Normal mediastinum and denae. Normal visualized pulmonary arteries. Normal visualized aortic arch and descending thoracic aorta. Normal visualized thoracic spine. Normal visualized ribs, clavicles, and shoulders. There is no demonstrated abnormality of the visualized soft tissue structures of the upper abdomen. RAD/Chest PA and Lateral IMPRESSION: Normal x-ray examination of the chest. Electronically Signed: Fadi Leroy MD at 18:07 EST ,
== END | disposition home or self-care (01) ==
LOC: RAD 17:24
PROVIDERS: PCP Family Medicine; Visit Provider Physician Assistant
DX: R05.9 Cough, unspecified (principal)
CPT/HCPCS: 71046

== ENCOUNTER 2022-09-16 16:00 | Outpatient (RCR) | payer OTHER, SELFPAY ==
--- NOTE | 2022-08-26 17:03 | HP.PTEVAL ---
Patient's Visit Information BRISSA STEELE is a 51 year old F referred to Physical Therapy by Dr. Philip Gerber MD with a diagnosis of LBP with L LE radiculopathy. Date of Evaluation: 08/26/22 Physical Therapist: Shlomo Solano, PT, ATC - Visit Plan Frequency: 2-3x /Week Duration: 4-6 Weeks Plan: Postural edu, core strengthening, B LE stretching and strengthening, and HEP - Subjective Pt reports she has had LBP for the past year. Pt reports the pain has progressively worsened. Pt reports her pain had an insidious onset in nature. Pt denies any tingling or numbness in her LE's, but notes pain shoots down to her groin and L hip. Pt reports she has not had any recent x-rays. Pt notes the pain will become so severe that she is not able to move. This has brought her to the ER on one occasion. Pt reports sleep difficulty when sx's are severe. Pt reports the episodes of her pain being severe are becoming more and more frequent. Pt reports bending forward into the bathtub to clean it out causes increased pain. Pt reports there is nothing else she can think of that increases her pain. Pt reports a heating pad and rest help her LB to feel better. 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 1/10 at rest, 10/10 when her spasms occur. - Pain LBP Pain Intensity (Out of 10): 1 Pain Intensity Range: 10 - Objective Neuro: B LE sensation is WNL to light touch. B patellar reflex= 2/3. ROM: L/S is WFL in all ranges. MMT: B LE's are grossly 5/5 throughout. Gait: Pt ambulates and lunges with excessive knee valgus indicating core weakness at this time. Special tests: No pos hip tests this date - Balance/Special Test Scores Oswestry Low Back Score: 11 - Goals Goal 1:: Decrease LBP level x 50% to aid with sleep Goal Time Frame: 4-6 Weeks Goal 2:: Decrease the frequency and severeity of LBP x 50% to aid with work requirements Goal Time Frame: 4-6 Weeks Goal 3:: I with HEP of core and LE strengthening Goal Time Frame: 4-6 Weeks - Rehabilitation Potential Physical Therapy Diagnosis: Pt has LBP secondary to core weakness at this time Rehabilitation Potential: Good - Anticipated Interventions Patient/Client Instruction: Educate patient on: Condition, Plan of Care For the Purpose of:: To improve self management Therapeutic Exercise to Include: Strength training, Balance training, Postural training, Flexibilty training, Active ROM, Dynamic Lumbar Stabilization For the Purpose of:: To decrease pain, To increase ROM, To improve muscle performance and motor function Thermo therapy (hot pack): Yes For the Purpose of:: To decrease pain Thank you for the opportunity to evaluate your patient. For Medicare and Medicare HMO plans, please review the plan of care and approve it. It will need to be FAXED BACK to us at [phone] for Medicare purposes. For Medicare only, by signing this I certify the plan of care. Please let me know if there are questions or concerns regarding this plan of care. Physician Signature: Date:
--- NOTE | 2023-01-15 17:08 | HP.PT.NRP ---
BRISSA STEELE was seen in my office for initial evaluation on 08/26/22. The following Plan of Care was established for this patient: Initial Frequency: 2-3x /Week Initial Duration: 4-6 Weeks Patient/Client Instruction: Educate patient on: Condition, Plan of Care For the Purpose of:: To improve self management Therapeutic Exercise to Include: Strength training, Balance training, Postural training, Flexibilty training, Active ROM, Dynamic Lumbar Stabilization For the Purpose of:: To decrease pain, To increase ROM, To improve muscle performance and motor function Thermo therapy (hot pack): Yes For the Purpose of:: To decrease pain This patient was last seen in our office . Pertinent comments regarding their Physical therapy will appear below: Pt was treated for 4 PT visits for LBP through the date of 09/16/22. Pt has not returned through todays date and is discontinued at this time. At this point I will be discontinuing this patient from physical therapy. I would be happy to see this patient again in the future if found appropriate by the physician. Thank you! Shlomo Solano, PT, ATC Balance/Gait/Functional tests - Balance/Special Test Scores Oswestry Low Back Score: 11
== END 2022-09-16 19:00 | disposition home or self-care (01) ==
LOC: PT 16:00
PROVIDERS: PCP Family Medicine; Referring Provider Anesthesiology Pain Medicine; Visit Provider Anesthesiology Pain Medicine
DX: M54.42 Lumbago with sciatica, left side (principal); M62.830 Muscle spasm of back
CPT/HCPCS: 97110; 97161

== ENCOUNTER → 2022-12-04 | Outpatient (CLI) | payer OTHER, SELFPAY ==
--- NOTE | 2022-12-04 08:06 | RAD_ITS ---
STUDY: X-RAY CHEST REASON FOR EXAM: Female, 52 years old. Dyspnea. TECHNIQUE: Single frontal view of the chest. COMPARISON: August 2022. FINDINGS: The lungs are clear and expanded. Stable scattered healed parenchymal granulomatous calcifications. There is no demonstrated pleural abnormality. Normal size heart. Normal mediastinum and denae. Normal visualized pulmonary arteries. Normal visualized aortic arch and descending thoracic aorta. Normal visualized thoracic spine. Normal visualized ribs, clavicles, and shoulders. There is no demonstrated abnormality of the visualized soft tissue structures of the upper abdomen. RAD/Chest PA and Lateral IMPRESSION: No interval change. No active or acute cardiopulmonary disease. Electronically Signed: Juan Pablo Urena, at 9:39 EST ,
[2022-12-04 08:17] LABS: Hematocrit 39.7 % (37-47); Hemoglobin 13.5 g/dL (12.0-15.0); Mean Corpuscular Hgb 30.3 pg (27.0-32.0); Platelet Count 223 K/mm3 (150-450); RBC Distribution Width CV 12.9 % (11.6-14.6); RBC Distribution Width SD 42.5 fl (35.1-43.9); Red Blood Count 4.46 M/mm3 (4.2-5.4); White Blood Count 6.1 K/mm3 (4.4-11.0)
[2022-12-04 08:53] LABS: Vitamin B12 743 pg/mL (211-911)
[2022-12-04 09:06] LABS: ALB/GLOB Ratio 1.2 RATIO (0.9-2.4); AST(SGOT) 17 U/L (15-37); Alanine Aminotransfer ALT/SGPT 23 U/L (13-56); Albumin, Serum 3.8 g/dL (3.2-5.0); Alkaline Phosphatase 78 U/L (45-117); Anion Gap 6 (5-15); BUN 14 mg/dL (7-18); BUN/Creat Ratio 20.3 RATIO (10-20); Chloride 108 mmol/L (98-107); Cholesterol 155 mg/dL (200); Creatinine, Serum 0.69 mg/dL (0.55-1.02); EST Glomerular Filtration Rate 96 mL/min (>60); Est Glom Filt Rate - Afr Amer 116 mL/min (>60); Globulin 3.2 g/dL (2.2-4.2); Glucose 106 mg/dL (74-106); High Density Lipoprotein 47 mg/dL; Potassium 3.8 mmol/L (3.5-5.1); Sodium Level 139 mmol/L (136-145); Thyroid Stim Hormone (TSH) 2.26 uIU/mL (0.358-3.74); Triglycerides 105 mg/dL; Very Low Density Lipoprotein 21 mg/dL (5-40)
== END | disposition home or self-care (01) ==
PROVIDERS: PCP Family Medicine; Referring Provider Family Medicine; Visit Provider Family Medicine
DX: R06.00 Dyspnea, unspecified (principal); F32.A Depression, unspecified
CPT/HCPCS: 36415; 71046; 80053; 80061; 82607; 84443; 85027

== ENCOUNTER → 2022-12-05 | Outpatient (CLI) | payer OTHER, SELFPAY ==
--- NOTE | 2022-12-05 07:29 | EKG12_ITS ---
Test Reason : ROUTINE Blood Pressure : / mmHG Vent. Rate : 077 BPM Atrial Rate : 077 BPM P-R Int : 180 ms QRS Dur : 090 ms QT Int : 382 ms P-R-T Axes : 027 051 044 degrees QTc Int : 432 ms Sinus rhythm with occasional Premature ventricular complexes Low voltage QRS Borderline ECG Confirmed by MIK DUNBAR, STELLA ([id number]), production editor PILI TAVERA ([id number]) on 12/08/2022 1:48:07 PM Referred By: Tequila Lujan Confirmed By:STELLA HOUSER MD
== END | disposition home or self-care (01) ==
PROVIDERS: PCP Family Medicine; Referring Provider Family Medicine; Visit Provider Family Medicine
DX: F32.A Depression, unspecified (principal)
CPT/HCPCS: 93005

== ENCOUNTER → 2022-12-09 | Outpatient (CLI) | payer OTHER, SELFPAY ==
--- NOTE | 2022-12-10 10:25 | PFT ---
INTRODUCTION: The patient is a 52-year-old female that presents for pulmonary function studies secondary to a diagnosis of dyspnea. Respiratory therapy reported good patient effort. Bronchodilators were used during testing. INTERPRETATION: Forced expiration spirometry demonstrates no evidence of a large airways obstructive ventilatory defect. There was no significant response to aerosolized bronchodilators. Spirograms are of good quality and plateau normally. The respiratory flow-volume loop is normal. Body plethysmography was performed and reveals lung volumes to be within normal limits. Diffusing capacity by single breath CO is also within normal limits. IMPRESSION: Grossly normal pulmonary function studies.
== END | disposition home or self-care (01) ==
LOC: PSN 12:32
PROVIDERS: PCP Family Medicine; Visit Provider Family Medicine
DX: R06.00 Dyspnea, unspecified (principal)
CPT/HCPCS: 94060; 94726; 94729

== ENCOUNTER 2023-02-02 09:28 | Day surgery (SDC) | payer OTHER, SELFPAY ==
[2023-02-02] VITALS (7 sets, daily range): BP systolic 100–119; BP diastolic 57–73; PULSE 73–81; RESP 16–17; TEMP 36.1–36.3; O2SAT 92–97; BMI 37.8
[2023-02-02] MEDS: Lactated Ringers 1,000 ML 15 ML IV (10:08)
--- NOTE | 2023-02-02 10:15 | RAD_ITS ---
PROCEDURE: Caudal block. DATE OF EXAMINATION: February 02, 2023. INDICATION: Female, 52 years old. Chronic low back pain. FLUOROSCOPY TIME (if supplied): (7.6 seconds) minutes/seconds. 7.43 mGy. One spot image was submitted. Intraoperative imaging provided for caudal block. RAD/Fluor Guidance for Spine Inj IMPRESSION: Intraoperative imaging provided for caudal block. Electronically Signed: Issac Dasilva MD at 12:55 EDT ,
[2023-02-02] MEDS: MethylPREDNISolone Acetate 80 MG/ML Vial (10:25)
[2023-02-02] MEDS: Lidocaine 1% (5 ml sdv) 5 ML Vial (10:25)
[2023-02-02] MEDS: 0.9% Normal Saline (Pres. free 10 ML Vial (10:25)
[2023-02-02] MEDS: Bupivacaine 0.25% 30 ML Vial (10:26)
--- NOTE | 2023-02-02 10:28 | OP.PCM_ITS ---
Report of Operation Date of Procedure: 02/02/23 Pre-Operative Diagnosis: Lumbosacral radiculopathy, lumbosacral degenerative di sc disease, lumbosacral spinal stenosis Post-Operative Diagnosis: Lumbosacral radiculopathy, lumbosacral degenerative disc disease, lumbosacral spinal stenosis Surgery/Procedure Performed:: Caudal epidural steroid injection under fluoroscopic guidance Type of Anesthesia: MAC Estimated Blood Loss (mL): Minimal Description of Procedure: DESCRIPTION OF PROCEDURE: History and physical of today was reviewed. Risks and benefits of the procedure were explained. The patient understood and agreed to proceed. Informed consent was obtained. IV inserted per routine protocol. The patient was taken to the operating room and placed in the prone position with a pillow positioned underneath the abdomen. The lower back and tailbone area was prepped and draped in a sterile fashion using iodine x3. Under fluoroscopy guidance on a lateral view, the caudal space was identified. The skin and subcutaneous tissue was anesthetized with approximately 3 mL of 1% lidocaine using a 25-gauge regular needle. Under direct visualization with fluoroscopy, using a 22-gauge 3-1/2-inch spinal needle, the needle was advanced via the skin through the sacral hiatus. The tip of the needle was passed through the sacrococcygeal ligament and advanced to approximately S4 area. After negative aspiration of blood or CSF, a total of 3 mL of contrast was injected to confirm correct placement of the needle as well as cephalad spread. The spread was followed to approximately L5 area. After confirmation on AP as well as lateral view and repeated negative aspiration, a total of 15 mL of preservative-free 0.125% Marcaine with 80 mg of Depo-Medrol was injected easily. The needle was then removed intact. The patient experienced no sign or symptoms of intrathecal or intravascular injection. The patient experienced no paresthesia. The procedure was completed without any apparent difficulty or any complications. The patient appeared to tolerate it well. ASSESSMENT AND PLAN: This is a 52-year-old female with lumbosacral radiculopathy, lumbosacral degenerative disc disease, lumbosacral spinal stenosis status post caudal epidural steroid injection, patient will continue her current medications, patient will follow in approximately 2 weeks for reevaluation. Complications None
[2023-02-02 10:42] LABS: Hemoglobin A1c 5.3 % (3.8-5.6)
== END 2023-02-02 11:08 | disposition home or self-care (01) ==
LOC: SDC 09:29 → AC 09:30
PROVIDERS: Obstetrics & Gynecology; PCP Family Medicine; Referring Provider Anesthesiology Pain Medicine; Visit Provider Anesthesiology Pain Medicine
PROC: 3E0S3BZ Introduction of Anesthetic Agent into Epidural Space, Percutaneous Approach (ICD-10-PCS; CPT 62282; principal; 2023-02-02 10:45)
DX: M48.07 Spinal stenosis, lumbosacral region (principal); M51.17 Intervertebral disc disorders with radiculopathy, lumbosacral region; F50.81 Binge eating disorder; E66.8 Other obesity; Z68.39 Body mass index [BMI] 39.0-39.9, adult; R05.3 Chronic cough; K21.9 Gastro-esophageal reflux disease without esophagitis; R23.3 Spontaneous ecchymoses; Z79.899 Other long term (current) drug therapy
CPT/HCPCS: 62323; 64483; 77003; 82652; 83036; J7120; J3490

== ENCOUNTER → 2023-02-03 | Outpatient (CLI) | payer OTHER, SELFPAY ==
--- NOTE | 2023-02-03 10:25 | ECHOD_ITS ---
Reason For Study: DYSPNEA Procedure This was a 2D Doppler, Color Flow transthoracic echocardiogram. Exam performed in department. Left Ventricle Normal LV size. The left ventricular ejection fraction is 60 %. Normal diastology for age. Right Ventricle Normal right ventricle. Atria The left and right atria are normal. Mitral Valve Mild (1+) mitral valve insufficiency. Tricuspid Valve Trivial tricuspid valve insufficiency. Normal pulmonary artery pressure. Aortic Valve Trisinus/trileaflet aortic valve. Trivial aortic valve insufficiency. Pulmonic Valve The pulmonic valve is not well visualized. Pericardium/Pleural No pericardial effusion. MMode/2D Measurements & Calculations LVIDd: 4.6 cm IVSd: 0.83 cm Ao root diam: 3.3 cm LVIDs: 2.9 cm LVPWd: 0.86 cm RVDd: 2.7 cm FS: 36.0 % LAV(MOD-bp): 49.6 ml LVAd ap4: 27.7 cm2 SV(MOD-sp4): 45.3 ml LAV(MOD-bp) Indexed: 24.9 ml/m2 LVLd ap4: 7.6 cm LAV(MOD-sp2): 52.5 ml EDV(MOD-sp4): 81.7 ml LAV(MOD-sp4): 46.0 ml EDV(sp4-el): 85.8 ml LVAs ap4: 16.2 cm2 LVLs ap4: 6.0 cm ESV(MOD-sp4): 36.4 ml ESV(sp4-el): 37.1 ml EF(MOD-sp4): 55.5 % EF(sp4-el): 56.7 % SV(sp4-el): 48.7 ml LA dimension(2D): 3.6 cm LA A4 area: 16.4 cm2 RA A4 area: 14.6 cm2 Time Measurements MV dec time: 0.21 sec Doppler Measurements & Calculations MV E max cesar: 63.7 cm/sec Lat Peak E' Cesar: 14.8 cm/sec Med Peak E' Cesar: 8.5 cm/sec MV A max cesar: 49.7 cm/sec E/E' lat: 4.3 E/E' med: 7.5 MV E/A: 1.3 MV V2 max: 72.2 cm/sec Ao V2 max: 96.5 cm/sec MV max P.1 mmHg MV dec slope: 330.5 cm/sec2 Ao max P.7 mmHg MV V2 mean: 45.7 cm/sec Ao V2 mean: 67.9 cm/sec MV mean P.94 mmHg Ao mean P.1 mmHg MV V2 VTI: 28.3 cm Ao V2 VTI: 23.2 cm AV (velocity ratio): 0.92 LV V1 max: 84.1 cm/sec PA V2 max: 77.9 cm/sec TR max cesar: 220.7 cm/sec LV V1 max P.8 mmHg PA V2 mean: 57.5 cm/sec TR max P.5 mmHg LV V1 mean P.3 mmHg LV V1 mean: 53.4 cm/sec LV V1 VTI: 21.3 cm ECHO/Echo Complete Interpretation Summary The left ventricular ejection fraction is 60 %. Trace to mild (1+) mitral valve insufficiency. Ordering Physician: Tequila Lujan Referring Physician: Tequila Lujan Performed By: Janeth Castillo RCS
== END | disposition home or self-care (01) ==
LOC: CVS 10:23
PROVIDERS: PCP Family Medicine; Referring Provider Family Medicine; Visit Provider Family Medicine
DX: R06.00 Dyspnea, unspecified (principal); R06.89 Other abnormalities of breathing
CPT/HCPCS: 93306

== ENCOUNTER 2023-02-06 14:13 | Emergency (ER) | payer OTHER, SELFPAY ==
[2023-02-06 14:14] VITALS: BP 116/81; PULSE 70; RESP 18; TEMP 36; O2SAT 97; BMI 37.8
--- NOTE | 2023-02-06 14:50 | RAD_ITS ---
STUDY: X-RAY - RIGHT ANKLE REASON FOR EXAM: Female, 52 years old. Lateral and posterior ankle pain following a recent fall. TECHNIQUE: 3 view(s) of the ankle. COMPARISON: Comparison is made with prior examination dated April 20, 2020. FINDINGS: There is evidence of irregularity of the lateral malleolus at its tip as compared to prior study. Avulsion fracture should be ruled out. Normal medial and lateral malleoli. Normal tibiotalar articulation and ankle mortise. Normal visualized talus and calcaneus. The visualized subtalar, talonavicular, calcaneocuboid and tarsal articulations are normal. Soft tissue swelling. RAD/Ankle min 3 Views IMPRESSION: As compared to prior examination, there now is irregularity at the tip of the lateral malleolus has described. Avulsion fracture should be Soft tissue swelling. Electronically Signed: Issac Dasilva MD at 15:07 EDT ,
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
== END 2023-02-06 16:08 | disposition home or self-care (01) ==
PROVIDERS: Emergency Provider Emergency Medicine; PCP Family Medicine; Visit Provider Emergency Medicine
DX: S93.491A Sprain of other ligament of right ankle, initial encounter (principal); S96.911A Strain of unspecified muscle and tendon at ankle and foot level, right foot, initial encounter; W18.39XA Other fall on same level, initial encounter; K21.9 Gastro-esophageal reflux disease without esophagitis
CPT/HCPCS: 73610; 99283

== ENCOUNTER → 2023-02-21 | Outpatient (CLI) | payer OTHER, SELFPAY ==
--- NOTE | 2023-02-21 07:26 | MRI_ITS ---
INDICATION: Right foot drop. EXAMINATION: MR Spine Lumbar W/O Contrast TECHNIQUE: Multiplanar and multisequence MR images of the lumbar spine. IV Contrast Dosage and Agent: None. COMPARISON: CT abdomen and pelvis December 06, 2021. Lumbar spine x-rays December 06, 2021. FINDINGS: VERTEBRAE: Vertebral body heights are preserved. No marrow edema or compression fracture. Lower lumbar facet degenerative changes. Preservation of intervertebral disc height. VERTEBRAL ALIGNMENT: No spondylolisthesis. There is preservation of the normal lumbar lordosis. CORD: Normal position and signal intensity of the conus medullaris. Conus terminates normally at the L1-2 disc space level. SOFT TISSUES: Aorta is normal in caliber. AXIAL IMAGES: L1-2, L2-3, L3-4: Unremarkable. L4-5: Mild disc bulging. Small left foraminal protrusion. There is moderate facet degenerative change. No significant spinal canal narrowing. There is mild left foraminal narrowing. L5-S1: No disc protrusion. Mild facet arthropathy. No spinal canal or foraminal stenosis. MRI/Spine Lumbar (Routine) IMPRESSION: Small L4-5 disc protrusion without nerve root impingement. Electronically Signed: Sarwat Bañuelos MD at 21:28 EDT ,
== END | disposition home or self-care (01) ==
PROVIDERS: PCP Family Medicine; Referring Provider Anesthesiology Pain Medicine; Visit Provider Anesthesiology Pain Medicine
DX: M51.37 Other intervertebral disc degeneration, lumbosacral region (principal)
CPT/HCPCS: 72148

== ENCOUNTER → 2023-03-05 | Outpatient (CLI) | payer OTHER, SELFPAY ==
--- NOTE | 2023-03-05 06:35 | MRI_ITS ---
STUDY: MRI RIGHT ANKLE WITHOUT CONTRAST REASON FOR EXAM: Female, 52 years old. Nondisplaced fracture of the lateral malleolus status post lateral tendon repair and internal brace placement in 2019. Pain. TECHNIQUE: Standardized fat and water weighted pulse sequences were obtained in all 3 orthogonal planes. Substantial large area of metallic artifact in the region of the fibula from the postsurgical changes (axial series 3 images 9-23). COMPARISON: Ankle images dated February 06, 2023. FINDINGS: Normal subcutis adipose space. Normal posterior tibialis tendon. Normal flexor digitorum longus tendon. Normal flexor hallucis longus tendon. Normal peroneus longus and brevis tendons. Normal tibialis anterior tendon. Normal extensor hallucis longus tendon. Normal extensor digitorum longus tendons. Normal Achilles tendon and teno-osseous insertion. Thickening of the proximal plantar fascia (sagittal series 7 image 12). Normal plantar calcaneal tubercles. Normal intrinsic muscles of the rearfoot. Postsurgical changes of the talofibular region with substantial metallic artifact and obscuration of much of the anatomic data in this area (coronal series 5 images 13-24). Nonvisualization of the lateral ligamentous complex. Thickening of the anterior tibiofibular syndesmotic ligament which is intact (axial series 4 images 9-12). Normal subtalar ligaments and sinus tarsi. Normal deltoid ligamentous complexes. Normal plantar calcaneonavicular (spring) ligament. Normal tibiotalar articulation. Normal talar dome. Normal subtalar articulations. Normal talonavicular articulation. Normal calcaneocuboid articulation. Normal navicular-cuneiform articulations. MRI/Lower Ext Joint Only (Routine) IMPRESSION: Thickening of the proximal plantar fascia. Substantial metallic artifact in the lateral aspect of the ankle with obscuration of most of the anatomic detail in this area. Thickening of the anterior tibiofibular syndesmotic ligament. No other abnormality. Electronically Signed: Juan Pablo Urena MD at 11:29 EDT ,
== END | disposition home or self-care (01) ==
LOC: MRI 06:24
PROVIDERS: PCP Family Medicine; Referring Provider Physician Assistant Surgical; Visit Provider Physician Assistant Surgical
DX: S82.64XA Nondisplaced fracture of lateral malleolus of right fibula, initial encounter for closed fracture (principal)
CPT/HCPCS: 73721

== ENCOUNTER → 2023-03-19 | Outpatient (CLI) | payer OTHER, SELFPAY ==
--- NOTE | 2023-03-19 07:00 | BI_ITS ---
MAMMOGRAPHY - BILATERAL SCREENING REASON FOR EXAM: Female, 52 years old. Routine annual screening examination. PERTINENT HISTORY: Aunts with breast cancer. TECHNIQUE: Digital bilateral breast josé miguel (3D mammographic acquisition) in the CC and MLO projections. 2-D mediolateral oblique (MLO) and craniocaudad (CC) views of both breasts were obtained. CAD: Full Field Digital Mammography with Computer Added Detection was performed. COMPARISON: Comparison is made with prior study dated January 21, 2019 and July 23, 2017. FINDINGS: Breast Composition: The breasts are heterogeneously dense, which may obscure small masses. There are no dominant masses or suspicious calcifications. The amount of breast tissue has decreased as compared to prior study. Stable small benign-appearing bilateral axillary lymph nodes. No other significant abnormalities are identified. There has been no significant change since the prior study. BI/SCRN MAMM (CAD)W/JOSÉ MIGUEL BILAT IMPRESSION: Stable bilateral screening mammogram. Yearly follow-up mammogram recommended. (A) ASSESSMENT CATEGORY: BIRADS Category 2: Benign. A letter regarding these results will be sent to the patient by the facility within 30 days. Approximately 10% of breast cancers are not detected by mammography. A normal mammogram should not delay biopsy of a clinically suspicious abnormality. [id number] Electronically Signed: Issac Dasilva MD at 8:53 EDT ,
== END | disposition home or self-care (01) ==
LOC: OPBI 06:58
PROVIDERS: PCP Family Medicine; Referring Provider Family Medicine; Visit Provider Family Medicine
DX: Z12.31 Encounter for screening mammogram for malignant neoplasm of breast (principal); Z80.3 Family history of malignant neoplasm of breast
CPT/HCPCS: 77063; 77067

== ENCOUNTER → 2023-03-26 | Outpatient (CLI) | payer OTHER, SELFPAY | END | disposition home or self-care (01) | LOC: SL 13:05 | PROVIDERS: PCP Family Medicine; Referring Provider Internal Medicine; Visit Provider Internal Medicine | DX: G47.33 Obstructive sleep apnea (adult) (pediatric) (principal) | CPT/HCPCS: 95806 ==

== ENCOUNTER → 2023-04-24 | Outpatient (CLI) | payer OTHER, SELFPAY ==
--- NOTE | 2023-04-24 | LES_PTH ---
PATIENT: BRISSA STEELE LOC: [facility] U#:[id number] AGE/SX: 52/F ROOM: RE04/24/[address]: Dr. Donald Polk MD : 1970 BED: DIS: 04/24/2023 SPEC #: [id number] RECD: 04/24/23 16:53 STATUS: YUAN GERMAIN #: [id number] AMINA: 04/24/23 00:[address]: Donald Polk DEPT: SURGICAL PATHOLOGY RECD BY: Erin Handley ENTERED: 04/27/23 08:54 SP TYPE: Lesion OTHR DR: Dr. Tequila Lujan MD Tissues: Skin of thumb, NOS Procedures: Surgery Specimen Level IV HEADER OPERATION: Excision right thumb skin lesion PRE-OP DIAGNOSIS: Right thumb skin lesion TISSUE SUBMITTED: Right thumb skin lesion MICROSCOPIC DIAGNOSIS Right thumb skin lesion, biopsy: Consistent with verrucoid keratosis, mildly inflamed. Hyperkeratosis. AM:ana 04/28/2023 MICROSCOPIC DESCRIPTION Slides are reviewed. GROSS DESCRIPTION Received in fixative is one container labeled with the patient's name and designated right thumb skin lesion. The specimen consists of a johnston-white skin ellipse measuring 1.0 x 0.4 cm and up to 0.4 cm in thickness. The specimen is inked, serially sectioned and submitted entirely in one cassette. / SCOT:ana 04/27/2023 TC:3 CPT: 49025
== END | disposition home or self-care (01) ==
LOC: LABSPEC 16:37
PROVIDERS: PCP Family Medicine; Referring Provider Surgery; Visit Provider Surgery
DX: L98.9 Disorder of the skin and subcutaneous tissue, unspecified (principal)
CPT/HCPCS: 88305

== ENCOUNTER 2023-06-25 16:00 | Outpatient (RCR) | payer OTHER, SELFPAY ==
--- NOTE | 2023-06-17 16:51 | HP.PTEVAL ---
Patient's Visit Information Visit Information Visit Information: BRISSA STEELE is a 52 year old F referred to Physical Therapy by Dr. Philip Gerber MD with a diagnosis of L radic and spinal stenosis L spine. Date of Evaluation: 06/17/23 Physical Therapist: LEA Maldonado Visit Plan Frequency: 2x /Week Duration: 4 Weeks Plan: 2X/ week for 4 weeks for Neutral spine core stability starting on mat table and progressing to standing. Add PT with knee fall outs next visit as well. HEP: PT, PT with bridge, PT with hip march, PT with heel slides... Subjective Subjective: Pt has back pain that has been going on for a long time. She had a caudal injection that took away some of the pain. When she bends over she feels like something catches and she has pain down the R hip down the back. It goes down to mid thigh in the back of the leg. The caudal injection took away the back spasms and the foot drop. She feels that the foot drop is not as pronounced as what it was. She has had an MRI... L4/L5 small disc protrusion. She has no N&T. She reports that she has some leg weakness in the past. She sleeps interrupted with pain as she changes position. Pain back pain: Pain Intensity (Out of 10): 4 R hip pain: Pain Intensity (Out of 10): 2 Objective Objective: Gait: walks with normal gait pattern with less trunk rotation. LE MMT: R hip flex 12.7 and L 12.3 R knee ext 20.3 and L 16.1 R knee flex 12.3 and L 11.7 R hip ext 13.5 and L 12 Patella: 2+/3 B Heel and toe raises: pt is able to walk on heels and toes Trunk AROM: flex 100% (pain on coming back up from flexion, Ext 50 (does not close down on the L side as much as the R side). Stairs: used to be an issue but since the injection they are no bad. She would have less power ascending the stairs. Now she can go up and down the stairs recip Good B piriformis muscle length, ( no pain with piriformis stretching or IT band stretching - SLR B, Seated trunk flexion pt could feel tightness in her L spine.. Pt felt good relief with compression of the R SI. Pt is able to do a PT but hard for her to hold in place. Balance/Special Test Scores Oswestry Low Back Score: 5 Goals Goal 1:: I HEP in core stability program Goal Time Frame: 6-8 Weeks Goal 2:: Decrease pain when rising from a trunk flexion position by 50% Goal Time Frame: 6-8 Weeks Goal 3:: Increase LE strength (LE MMT: R hip flex 12.7 and L 12.3 R knee ext 20.3 and L 16.1 R knee flex 12.3 and L 11.7 R hip ext 13.5 and L 12) Goal Time Frame: 6-8 Weeks Rehabilitation Potential Rehabilitation Potential: Good Anticipated Interventions Patient/Client Instruction: Educate patient on: Condition and Plan of Care For the Purpose of:: To decrease pain, To increase ROM, To improve nutrient delivery to tissue, To improve muscle performance and motor function, To improve ability to perform ADL's, To increase tolerance to activity/condition/position, To improve performance and independence with ADL's, To improve ability of physical actions for home/community/work/leisure, To improve gait and locomotor functions, To improve health of tissue, To decrease soft tissue restriction and To increase flexibility/ROM Therapeutic Exercise to Include: Strength training, Body mechanics, Postural training, Flexibilty training, Neuromotor development, Active ROM, Dynamic Lumbar Stabilization, Diandra Exercises and Scapular Strength/Stabilization For the Purpose of:: To decrease pain, To increase ROM, To improve nutrient delivery to tissue, To improve muscle performance and motor function, To improve ability to perform ADL's, To increase tolerance to activity/condition/position, To improve performance and independence with ADL's, To decrease level of supervision to perform tasks, To improve ability of physical actions for home/community/work/leisure, To improve health of tissue, To decrease soft tissue restriction and To increase flexibility/ROM Manual Therapy Techniques to Include: Mobilization, Passive ROM and Soft tissue mobilization For the Purpose of:: To decrease pain, To increase ROM, To improve nutrient delivery to tissue, To improve muscle performance and motor function and To improve health of tissue Text: Thank you for the opportunity to evaluate your patient. For Medicare and Medicare HMO plans, please review the plan of care and approve it. It will need to be FAXED BACK to us at [phone] for Medicare purposes. For Medicare only, by signing this I certify the plan of care. Please let me know if there are questions or concerns regarding this plan of care. Physician Signature: Date:
--- NOTE | 2023-10-06 07:14 | HP.PT.NRP(2) ---
Patient Information Patient Information: BRISSA STEELE was seen in my office for initial evaluation on . The following Plan of Care was established for this patient: Last Seen Last Seen: This patient was last seen in our office . Pertinent comments regarding their Physical therapy will appear below: At this point I will be discontinuing this patient from physical therapy. I would be happy to see this patient again in the future if found appropriate by the physician. Thank you! Nohelia Ellington, MPT
== END 2023-06-25 19:00 | disposition home or self-care (01) ==
LOC: PT 16:00
PROVIDERS: PCP Family Medicine; Referring Provider Anesthesiology Pain Medicine; Visit Provider Anesthesiology Pain Medicine
DX: M54.17 Radiculopathy, lumbosacral region (principal); M48.07 Spinal stenosis, lumbosacral region
CPT/HCPCS: 97110; 97161

== ENCOUNTER → 2023-09-09 | Outpatient (CLI) | payer OTHER, SELFPAY ==
--- NOTE | 2023-09-09 06:58 | US_ITS ---
STUDY: ABDOMINAL ULTRASOUND - RIGHT UPPER QUADRANT REASON FOR VISIT: Female, 53 years old epigastric pain,nausea TECHNIQUE: Ultrasound evaluation of the right upper quadrant was performed with real-time and static leigh-scale imaging. TECHNICAL QUALITY: Adequate. COMPARISON: None. FINDINGS: Liver: The liver measures 15.0 cm. There is increased echogenicity consistent with fatty infiltration. The bile ducts are within normal limits. There is hepatic color flow. The direction of portal flow is hepatopetal. There is no demonstrated mass lesion. Gallbladder: Normal distended gallbladder. The gallbladder wall measures 2 mm. There is a negative sonographic Vang''s sign. There is no pericholecystic fluid. There are no gallstones. Common Bile Duct (C.B.D.): The common bile duct measures 4 mm. Pancreas: Normal size of the head, body and tail of the pancreas. There is normal echogenicity of the pancreas. There is no demonstrated pancreatic mass or cyst. Right Kidney: Normal size of the right kidney. The right kidney measures 10.0 cm. Normal renal cortex. The right cortex measures 1.5 cm. There is no demonstrated renal mass or cyst. There is no right hydronephrosis. US/Gallbladder IMPRESSION: Fatty infiltration of the liver. Electronically Signed: Fadi Leroy MD at 18:48 EST ,
== END | disposition home or self-care (01) ==
LOC: US 06:57
PROVIDERS: PCP Family Medicine; Referring Provider Surgery; Visit Provider Surgery
DX: R10.13 Epigastric pain (principal); F43.21 Adjustment disorder with depressed mood
CPT/HCPCS: 76705; 93005

== ENCOUNTER 2023-09-16 05:35 | Day surgery (SDC) | payer OTHER, SELFPAY ==
--- NOTE | 2023-09-15 06:30 | EGD_PTH ---
PATIENT: BRISSA STEELE [place] [facility] [id number] AGE/SX: 53/F ROOM: RE09/16/[address]: Dr. Donald Polk MD : 1970 BED: DIS: 09/16/2023 SPEC #: [id number] RECD: 09/16/23 08:13 STATUS: YUAN GARCIAShekhar #: [id number] AMINA: 09/15/23 06:[address]: Donald Polk DEPT: SURGICAL PATHOLOGY RECD BY: Kassidy Mancilla ENTERED: 09/16/23 08:14 SP TYPE: EGD BIOPSY OT DR: Dr. Tequila Lujan MD Tissues: A - Duodenum, NOS B - Gastric mucous membrane C - Gastric mucous membrane D - Esophageal mucous membrane E - Esophageal mucous membrane Procedures: Special Stain Group II Surgery Specimen Level IV Alcian Blue/PAS (control) HEADER OPERATION: Colonoscopy, EGD, biopsy PRE-OP DIAGNOSIS: Nausea, epigastric pain TISSUE SUBMITTED: A - Duodenum biopsy, B - Gastric antrum biopsy, H. pylori and path, C - Greater curvature polyp, D - Distal esophagus, E - Mid esophagus MICROSCOPIC DIAGNOSIS A. Duodenum, biopsy: A fragment of duodenal mucosa with mild Anjelica gland hyperplasia. B. Gastric antrum, biopsy: Mild gastritis. See microscopic description and comment. C. Greater curvature polyp, biopsy: Fundic gland polyp. D. Distal esophagus, biopsy: Fragments of gastroesophageal mucosa with focal intestinal metaplasia (goblet cell metaplasia), consistent with Bhatti's esophagus. Chronic inflammation. Negative for dysplasia. See comment. E. Mid esophagus, biopsy: A fragment of benign squamous mucosa with minimal chronic inflammation. SJ:ana 09/17/2023 COMMENT B. The results of immunohistochemistry for Helicobacter pylori will be reported separately ([id number]). D. Immunohistochemistry ([id number]) for P53 and Ki-67 will be performed and results will be reported separately. Alcian blue/PAS stain with matched control is used in the evaluation of the specimen. MICROSCOPIC DESCRIPTION Slides are reviewed. B. The specimen shows fragments of gastric mucosa with chronic inflammatory cell infiltrates in the lamina propria consisting of lymphocytes and plasma cells, consistent with mild chronic gastritis. GROSS DESCRIPTION A - Received in fixative is one container labeled with the patient's name and designated duodenum biopsy. The specimen consists of one irregular fragment of light johnston soft tissue that measures 0.3 x 0.3 x 0.1 cm. The specimen is totally submitted in one cassette. B - Received in fixative is one container labeled with the patient's name and designated gastric antrum. The specimen consists of one irregular fragment of light johnston soft tissue that measures 0.3 x 0.3 x 0.1 cm. The specimen is totally submitted in one cassette. C - Received in fixative is one container labeled with the patient's name and designated greater curvature polyp biopsy. The specimen consists of one irregular fragment of light johnston soft tissue that measures 0.7 x 0.2 x 0.1 cm. The specimen is totally submitted in one cassette. D - Received in fixative is one container labeled with the patient's name and designated distal esophagus biopsy. The specimen consists of multiple irregular fragments of light johnston soft tissue that in aggregate measure 1.5 x 0.5 x 0.1 cm. The specimen is totally submitted in one cassette. E - Received in fixative is one container labeled with the patient's name and designated mid esophagus. The specimen consists of one irregular fragment of light johnston soft tissue that measures 0.6 x 0.2 x 0.1 cm. The specimen is totally submitted in one cassette. / SJ:rg 09/16/2023 TC:3 [facility]: [id number] [phone], [phone]
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
[2023-09-16 06:00] VITALS: BP 107/63; PULSE 82; RESP 16; TEMP 36.4; O2SAT 100; BMI 27.3
[2023-09-16] MEDS: Lactated Ringers 1,000 ML 15 ML IV (06:05)
--- NOTE | 2023-09-16 06:30 | IMM_PTH ---
PATIENT: BRISSA STEELE LOC: [facility] [place]#:[id number] AGE/SX: 53/F ROOM: RE09/16/[address]: Dr. Donald Polk MD : 1970 BED: DIS: 09/16/2023 SPEC #: [id number] RECD: 09/16/23 09:02 STATUS: YUNA REShekhar #: [id number] AMINA: 09/16/23 06:[address]: Donald Polk DEPT: IMMUNOHISTOCHEMISTRY RECD BY: Betsy Mendoza ENTERED: 09/16/23 09:04 SP TYPE: IMMUNO OTHR DR: Dr. Tequila Lujan MD Tissues: B - Stomach, NOS D - Esophageal mucous membrane Procedures: H Pylori (initial) P53 (initial) KI-67 (initial) PHYSICIAN & INSTITUTION [place] [id number] SPECIMEN INFORMATION: Tissue Source: B - Gastric antrum, D - Distal esophagus Clinical Info: Nausea, epigastric pain Specimen Number: [id number] B & D CPT code: 08789 x2, 32512 METHODOLOGY: Deparaffinized sections of prefer/formalin-fixed tissue or PAP/DQ stained slides are incubated with monoclonal/polyclonal antibodies/oligonucleotide probes. Localization is made via biotin free immunoperoxidase method. Appropriate controls are performed and reacted as expected. Results on target cell population are indicated in the following table: RESULTS: ANTIBODY / CLONE RESULT Block B H Pylori (polyclonal) negative Block D P53 (DO-7) negative (null pattern) Ki-67 (30-9) positive, very low These tests were developed and their performance characteristics determined by [facility]. They may not have been cleared or approved by the U.S. Food and Drug Administration. The FDA has determined that such clearance or approval is not necessary. The above immunohistochemical/dualISH markers are ordered and reviewed by the Pathologist. INTERPRETATION: B. Gastric antrum, biopsy: Negative for Helicobacter pylori organisms. D. Distal esophagus, biopsy: Negative for dysplasia. SJ:ana 09/18/2023
[2023-09-16 07:00] VITALS: BP 107/63; BP 84/58; PULSE 79; RESP 16; TEMP 36.3; O2SAT 99
--- NOTE | 2023-09-16 07:01 | OP.EGD_ITS ---
Patient Name: Marbella Martínez Procedure Date: 09/16/2023 6:17 AM Date of : 1970 Age: 53 Procedure: Upper GI endoscopy Indications: Epigastric abdominal pain Providers: Donald Polk MD Referring MD: Tequila Lujan Md Medicines: See the Anesthesia note for documentation of the administered medications Complications: No immediate complications. Procedure: Pre-Anesthesia Assessment: - Prior to the procedure, a History and Physical was performed, and patient medications and allergies were reviewed. The patient's tolerance of previous anesthesia was also reviewed. The risks and benefits of the procedure and the sedation options and risks were discussed with the patient. All questions were answered, and informed consent was obtained. Prior Anticoagulants: The patient has taken no anticoagulant or antiplatelet agents. ASA Grade Assessment: II - A patient with mild systemic disease. After reviewing the risks and benefits, the patient was deemed in satisfactory condition to undergo the procedure. After obtaining informed consent, the endoscope was passed under direct vision. Throughout the procedure, the patient's blood pressure, pulse, and oxygen saturations were monitored continuously. The Endoscope was introduced through the mouth, and advanced to the third part of duodenum. The upper GI endoscopy was accomplished without difficulty. The patient tolerated the procedure well. Scope In: 6:30:47 AM Scope Out: 6:38:53 AM Total Procedure Duration Time 0 hours 8 minutes 6 seconds Findings: The Z-line was variable and was found 38 cm from the incisors. Biopsies were taken with a cold forceps for histology. Esophagitis with no bleeding was found 38 cm from the incisors. The middle third of the esophagus was normal. Biopsies were taken with a cold forceps for histology. Multiple sessile polyps with no bleeding and no stigmata of recent bleeding were found on the greater curvature of the stomach. The polyp was removed with a cold biopsy forceps. Resection and retrieval were complete. The gastric antrum was normal. Biopsies were taken with a cold forceps for histology. The examined duodenum was normal. Biopsies were taken with a cold forceps for histology. Impression: - Z-line variable, 38 cm from the incisors. Biopsied. - Reflux esophagitis with no bleeding. - Normal middle third of esophagus. Biopsied. - Multiple gastric polyps. Resected and retrieved. - Normal antrum. Biopsied. - Normal examined duodenum. Biopsied. Recommendation: - Discharge patient to home. - Resume previous diet. - Continue present medications. - Telephone my office for pathology results in 1 week. - Perform a hepatobiliary scan in 1 week. The current findings on upper endoscopy do not correlate with the patient's episodes of severe pain. Previous gallbladder ultrasound was noted to be normal. Procedure Code(s): --- Professional --- 63989, Esophagogastroduodenoscopy, flexible, transoral; with biopsy, single or multiple Diagnosis Code(s): --- Professional --- K22.89, Other specified disease of esophagus K21.00, Gastro-esophageal reflux disease with esophagitis, without bleeding K31.7, Polyp of stomach and duodenum R10.13, Epigastric pain CPT copyright 2021 [employer]. All rights reserved. The codes documented in this report are preliminary and upon senior lead project manager review may be revised to meet current compliance requirements. Donald Polk MD 09/16/2023 7:00:35 AM This report has been signed electronically. Number of Addenda: 0 Note Initiated On: 09/16/2023 6:17 AM
--- NOTE | 2023-09-16 07:01 | OP.CCLET_ITS ---
09/16/2023 Tequila Lujan Md Re : Upper GI endoscopy procedure for Marbella Serranor Tai This procedure was performed on Saturday, September 16, 2023. My impressions and recommendations are as follows: Impressions : - Z-line variable, 38 cm from the incisors. Biopsied. - Reflux esophagitis with no bleeding. - Normal middle third of esophagus. Biopsied. - Multiple gastric polyps. Resected and retrieved. - Normal antrum. Biopsied. - Normal examined duodenum. Biopsied. Recommendations : - Discharge patient to home. - Resume previous diet. - Continue present medications. - Telephone my office for pathology results in 1 week. - Perform a hepatobiliary scan in 1 week. The current findings on upper endoscopy do not correlate with the patient's episodes of severe pain. Previous gallbladder ultrasound was noted to be normal. My findings are described in the full procedure note, which is enclosed. If I can be of further assistance, please feel free to contact me at Doctor phone number(s): Work: . Sincerely, Donald Polk MD 09/16/2023 7:00:35 AM This report has been signed electronically.
--- NOTE | 2023-09-16 07:03 | OP.COLON_ITS ---
Patient Name: Marbella Martínez Procedure Date: 09/16/2023 6:39 AM Date of : 1970 Age: 53 Procedure: Colonoscopy Indications: Epigastric abdominal pain Providers: Donald Polk MD Referring MD: Tequila Lujan Md Medicines: See the Anesthesia note for documentation of the administered medications Patient Profile: Last Colonoscopy: date unknown. Complications: No immediate complications. Procedure: Pre-Anesthesia Assessment: - Prior to the procedure, a History and Physical was performed, and patient medications and allergies were reviewed. The patient's tolerance of previous anesthesia was also reviewed. The risks and benefits of the procedure and the sedation options and risks were discussed with the patient. All questions were answered, and informed consent was obtained. Prior Anticoagulants: The patient has taken no anticoagulant or antiplatelet agents. ASA Grade Assessment: II - A patient with mild systemic disease. After reviewing the risks and benefits, the patient was deemed in satisfactory condition to undergo the procedure. After I obtained informed consent, the scope was passed under direct vision. Throughout the procedure, the patient's blood pressure, pulse, and oxygen saturations were monitored continuously. The adult colonoscope was introduced through the anus and advanced to the cecum, identified by appendiceal orifice and ileocecal valve. The colonoscopy was performed without difficulty. The patient tolerated the procedure well. The quality of the bowel preparation was good. The ileocecal valve and the appendiceal orifice were photographed. Scope In: 6:41:56 AM Scope Withdrawal Time 0 hours 6 minutes 31 seconds Scope Out: 6:53:13 AM Total Procedure Duration Time 0 hours 11 minutes 17 seconds Findings: The digital rectal exam findings include non-thrombosed internal hemorrhoids and internal hemorrhoids that prolapse with straining, but spontaneously regress to the resting position (Grade II). The colon (entire examined portion) appeared normal. Impression: - Non-thrombosed internal hemorrhoids and internal hemorrhoids that prolapse with straining, but spontaneously regress to the resting position (Grade II) found on digital rectal exam. - The entire examined colon is normal. - No specimens collected. Recommendation: - Discharge patient to home. - Resume previous diet. - Continue present medications. - Repeat colonoscopy in 10 years for screening purposes. The findings do not correlate with the patient's severe epigastric pain. If planned HIDA scan does not deliver an answer then I would consider abdominal pelvic CT Procedure Code(s): --- Professional --- 06639, Colonoscopy, flexible; diagnostic, including collection of specimen(s) by brushing or washing, when performed (separate procedure) Diagnosis Code(s): --- Professional --- K64.1, Second degree hemorrhoids R10.13, Epigastric pain CPT copyright 2021 [employer]. All rights reserved. The codes documented in this report are preliminary and upon thread twister review may be revised to meet current compliance requirements. Donald Plok MD 09/16/2023 7:03:27 AM This report has been signed electronically. Number of Addenda: 0 Note Initiated On: 09/16/2023 6:39 AM
--- NOTE | 2023-09-16 07:04 | OP.CCLET_ITS ---
09/16/2023 Tequila Lujan Md Re : Colonoscopy procedure for Marbella Lujan This procedure was performed on Saturday, September 16, 2023. My impressions and recommendations are as follows: Impressions : - Non-thrombosed internal hemorrhoids and internal hemorrhoids that prolapse with straining, but spontaneously regress to the resting position (Grade II) found on digital rectal exam. - The entire examined colon is normal. - No specimens collected. Recommendations : - Discharge patient to home. - Resume previous diet. - Continue present medications. - Repeat colonoscopy in 10 years for screening purposes. The findings do not correlate with the patient's severe epigastric pain. If planned HIDA scan does not deliver an answer then I would consider abdominal pelvic CT My findings are described in the full procedure note, which is enclosed. If I can be of further assistance, please feel free to contact me at Doctor phone number(s): Work: . Sincerely, Donald Polk MD 09/16/2023 7:03:27 AM This report has been signed electronically.
[2023-09-16 07:05] VITALS: BP 107/63; BP 92/56; PULSE 73; RESP 16; O2SAT 97
[2023-09-16 07:10] VITALS: BP 107/63; BP 91/60; PULSE 73; RESP 16; O2SAT 100
[2023-09-16 07:15] VITALS: BP 107/63; BP 91/60; PULSE 72; RESP 16; TEMP 36.4; O2SAT 100
[2023-09-16 07:40] VITALS: BP 107/63
--- NOTE | 2023-09-16 08:08 | SUR.PHASEII ---
outpatient hida scan ordered.
== END 2023-09-16 07:37 | disposition home or self-care (01) ==
LOC: SDC 05:37 → AC 05:37
PROVIDERS: PCP Family Medicine; Referring Provider Family Medicine; Visit Provider Surgery
PROC: 0DJD8ZZ Inspection of Lower Intestinal Tract, Via Natural or Artificial Opening Endoscopic (ICD-10-PCS; CPT 45378; principal; 2023-09-16 06:25)
DX: K31.7 Polyp of stomach and duodenum (principal); K21.00 Gastro-esophageal reflux disease with esophagitis, without bleeding; K29.50 Unspecified chronic gastritis without bleeding; K22.89 Other specified disease of esophagus; K64.1 Second degree hemorrhoids; G50.0 Trigeminal neuralgia; F32.9 Major depressive disorder, single episode, unspecified; F41.9 Anxiety disorder, unspecified; G47.33 Obstructive sleep apnea (adult) (pediatric); F50.81 Binge eating disorder; F43.21 Adjustment disorder with depressed mood; G47.00 Insomnia, unspecified; M19.90 Unspecified osteoarthritis, unspecified site; E66.8 Other obesity; Z68.27 Body mass index [BMI] 27.0-27.9, adult; Z79.899 Other long term (current) drug therapy
CPT/HCPCS: 43239; 45378; 88305; 88313; 88342; J7120; J2405

== ENCOUNTER → 2023-09-23 | Outpatient (CLI) | payer OTHER, SELFPAY ==
--- NOTE | 2023-09-23 10:02 | NM_ITS ---
CLINICAL: 53-year-old female with history of abdominal pain. RADIONUCLIDE HEPATOBILIARY SCINTIGRAPHY COMPARISON: Gallbladder ultrasound report 09/09/2023 FINDINGS: Following the intravenous administration of 5.3 mCi of 99m Tc Mebrofenin, hepatobiliary images reveal:. 1. Relatively prompt and homogeneous radiopharmaceutical concentration is noted by a normal sized liver. No parenchymal defects are identified. 2. Gallbladder activity is identified at 45 minutes post radiopharmaceutical administration. 3. Small intestinal tract is observed at 15 minutes following tracer injection. 4. Washout of the radiopharmaceutical by the hepatic parenchyma appears qualitatively normal. Cholecystokinin (0.02 ug/kg) was administered intravenously over a 30-minute period. The post CCK gallbladder ejection fraction calculated at 20 minutes following Cholecystokinin administration was noted to be 60.0 % (normal greater than 35%). During 30 minutes of post CCK imaging, there is scintigraphic evidence of refilling of the gallbladder. NM/Hepatobilliary Img w/Pharm Int IMPRESSION: 1. A gallbladder ejection fraction calculated to be greater than 35% following the administration of Cholecystokinin makes the probability of functional hepatobiliary disease (gallbladder dyskinesia) and/or organic hepatobiliary disease (chronic acalculous cholecystitis and/or cystic duct syndrome) to be low. (Shana Ruiz et al, Journal of Nuclear Medicine 32:1695, 1991). 2. 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 Correlation with Sphincter of Oddi manometry may be of benefit. (Shane and Shane, J Nucl Med 38:1824, 1997). Electronically Signed: Fadi Graves DO at 23:40 EST ,
== END | disposition home or self-care (01) ==
LOC: NM 10:01
PROVIDERS: PCP Family Medicine; Referring Provider Surgery; Visit Provider Surgery
DX: R10.9 Unspecified abdominal pain (principal)
CPT/HCPCS: 78227; A9537; J2805

== ENCOUNTER 2023-12-07 08:50 | Day surgery (SDC) | payer OTHER, SELFPAY ==
--- OUTSIDE RECORDS SUMMARY | 2023-12-07 09:12 | XMS RPT_ITS | CCD ---
Author Name Unknown Address [address] [place] [address] Organization [facility] Care Team Providers Care Taffy Puller Name Role Phone Yuli Renee Julie O Unavailable Unavailable Jones, Julie O Unavailable Yuli Blunt Unavailable Unavailable Yuli Renee Unavailable Unavailable Yuli Renee Unavailable Unavailable Yuli Renee Unavailable Yuli Blunt Julie O Unavailable Yuli Blunt Unavailable Yuli Blunt Unavailable Unavailable Unavailable MD YULI RENEE Referring MD YULI Berkowitz Primary Care MD YULI Berkowitz Attending MD YULI Berkowitz Referring MD YULI Berkowitz Primary Care MD YULI Berkowitz Attending Yuli Berkowitz MD Primary Care Provider Allergies Allergy Classification Reported Allergen(s) Allergy Type Date of Onset Reaction(s) Facility (2 sources) morphine; Translations: [morphine] Drug Allergy 11-14-2022 Unknown [facility] Repository (7 sources) Morphine; Translations: [Duramorph SOLN] Drug Allergy [facility] 205 DO Work Phone: Medications Current Medications Medication Drug Class(es) Dates Sig (Normalized) Sig (Original) 24 hr venlafaxine 75 mg extended release oral capsule (6 sources) Serotonin and Norepinephrine Reuptake Inhibitor Start: 08-18-2019 take 1 capsule by mouth once daily, then take 2 capsules by mouth once daily venlafaxine XR (Effexor-XR) 75 mg 24 hr capsule Take 1 capsule (75 mg) by mouth once daily. Take 2 capsules daily. 0 08/18/2019 Active Completed/Discontinued Medications Medication Drug Class(es) Dates Sig (Normalized) Sig (Original) 168 hr estradiol 0.33033 mg/hr transdermal system (7 sources) Estrogen Estradiol 0.075 MG/24HR Transdermal Patch Weekly Quantity: 0 Refills: 0 Ordered: 08-Jan-2022 DO Active Problems Active Problems Problem Classification Problem Date Documented Date Episodic/Chronic Diseases of mouth; excluding dental (3 sources) Disorder of lip; Translations: [Diseases of lips] Episodic Esophageal disorders (9 sources) Gastroesophageal reflux disease; Translations: [Esophageal reflux] Onset: 11-14-2022 01-13-2023 Chronic Mood disorders (5 sources) Depressive disorder; Translations: [Depressive disorder, not elsewhere classified] Onset: 11-14-2022 11-14-2022 Chronic Other lower respiratory disease (5 sources) Dyspnea; Translations: [Other respiratory abnormalities] 01-13-2023 Episodic Other lower respiratory disease (1 source) Chronic cough; Translations: [Chronic cough] 01-13-2023 Episodic Other nervous system disorders (8 sources) Complex regional pain syndrome; Translations: [Reflex sympathetic dystrophy, unspecified] Onset: 11-14-2022 11-14-2022 Chronic Other nutritional; endocrine; and metabolic disorders (12 sources) Body mass index 30+ - obesity; Translations: [Body Mass Index 37.0-37.9, adult] Onset: 11-14-2022 Resolved: 01-13-2023 01-13-2023 Chronic Other nutritional; endocrine; and metabolic disorders (2 sources) Severe obesity; Translations: [Morbid (severe) obesity due to excess calories] Onset: 01-13-2023 01-13-2023 Chronic Other nutritional; endocrine; and metabolic disorders (4 sources) Weight gain; Translations: [Abnormal weight gain] Episodic Other screening for suspected conditions (not mental disorders or infectious disease) (13 sources) Patient encounter status; Translations: [Breast screening, unspecified] Episodic Past or Other Problems Problem Classification Problem Date Documented Da te Episodic/Chronic Cancer of head and neck (8 sources) History of malignant neoplasm of parotid gland; Translations: [Personal history of malignant neoplasm of other and unspecified oral cavity and pharynx] Onset: 11-14-2022 Resolved: 11-05-2020 11-14-2022 Episodic Screening and history of mental health and substance abuse codes (4 sources) H/O: depression; Translations: [Personal history of other mental disorders] Resolved: 11-25-2022 Episodic Results Test Name Value Interpretation Reference Range Facil ity Vital Signs Date Time Vital Sign Value Performing Clinician Faci litailyn 01-13-2023 08:27-0400 Body height 160 cm Yuli Renee MD Work Phone: [facility] 01-13-2023 08:27-0400 Body mass index (BMI) [Ratio] 40.07 kg/m2 Yuli Renee MD Work Phone: [facility] 01-13-2023 08:27-0400 Body weight 102.6 kg Yuli Renee MD Work Phone: [facility] 01-13-2023 08:27-0400 Diastolic blood pressure 80 mm[Hg] Yuli Renee MD Work Phone: [facility] 01-13-2023 08:27-0400 Heart rate 96 /min Yuli Renee MD Work Phone: [facility] 01-13-2023 08:27-0400 Systolic blood pressure 130 mm[Hg] Yuli Renee MD Work Phone: [facility] 11-25-2022 08:19-0500 Body height 161.29 cm Yuli Renee Work Phone: [facility] Work Phone: 11-25-2022 08:19-0500 Body mass index (BMI) [Ratio] 39.81 kg/m2 Yuli Renee Work Phone: [facility] Work Phone: 11-25-2022 08:19-0500 Body surface area Derived from formula 2.06 m2 Yuli Renee Work Phone: [facility] Work Phone: 11-25-2022 08:19-0500 Body weight 103.56 kg Yuli Kinga Renee Work Phone: [facility] Work Phone: 11-25-2022 08:19-0500 Diastolic blood pressure 78 mm[Hg] Yuli Renee Work Phone: [facility] Work Phone: 11-25-2022 08:19-0500 Heart rate 92 /min Yuli Renee Work Phone: [facility] Work Phone: 11-25-2022 08:19-0500 SaO2% (BldA) [Mass fraction] 99 % Yuli O Renee Work Phone: [facility] Work Phone: 11-25-2022 08:19-0500 Systolic blood pressure 110 mm[Hg] Yuli Renee Work Phone: [facility] Work Phone: 01-08-2022 09:03-0400 Body height 161.29 cm Yuli Renee Work Phone: [facility] 205 DO Work Phone: 01-08-2022 09:03-0400 Body mass index (BMI) [Ratio] 38.36 kg/m2 Yuli Renee Work Phone: [facility] 205 DO Work Phone: 01-08-2022 09:03-0400 Body surface area Derived from formula 2.03 m2 Yuli Renee Work Phone: [facility] 205 DO Work Phone: 01-08-2022 09:03-0400 Body weight 99.79 kg Yuli Renee Work Phone: [facility] 205 DO Work Phone: 01-08-2022 09:03-0400 Diastolic blood pressure 74 mm[Hg] Yuli Renee Work Phone: [facility] 205 DO Work Phone: 01-08-2022 09:03-0400 Heart rate 84 /min Yuli Renee Work Phone: [facility] 205 DO Work Phone: 01-08-2022 09:03-0400 Systolic blood pressure 126 mm[Hg] Yuli Renee Work Phone: [facility] 205 DO Work Phone: Encounters Encounter Date Encounter Type Care Provider Facility Start: 01-13-2023 End: 01-13-2023 Office outpatient visit 15 minutes Yuli Renee MD Work Phone: [facility] Procedures Date Procedure Procedure Detail Performing Clinician section Yuli york Work Phone: Oophorectomy Yuli Renee Work Phone: Operative procedure on foot Yuli Renee Work Phone: Ostectomy of calcaneus for spur Yuli Renee Work Phone: Plan of Treatment Date Care Activity Detail Author Start: 01-13-2023 End: 01-14-2024 US Heart Transthoracic Transthoracic Echo (TTE) Complete Echocardiography Routine Dyspnea and respiratory abnormalities Expected: 01/13/2023, Expires: 01/14/2024 [facility] Service Area Work Phone: Immunizations Immunization Date Immunization Notes Care Provider Rosalie miller 07-04-2022 influenza, seasonal, injectable Yuli Renee Work Phone: [facility] Work Phone: 08-16-2021 Moderna COVID-19 Vaccine 100 MCG/0.5ML Intramuscular Suspension Yuli Renee Work Phone: [facility] 07-30-2021 influenza, seasonal, injectable, preservative free Yuli Renee Work Phone: [facility] 10-31-2020 Moderna COVID-19 Vaccine 100 MCG/0.5ML Intramuscular Suspension Yuli Renee Work Phone: [facility] 10-03-2020 Moderna COVID-19 Vaccine 100 MCG/0.5ML Intramuscular Suspension Yuli Renee Work Phone: [facility] Payers Date Payer Category Payer Unknown 1970 Unknown [id number] 1970 Unknown [id number] Unknown [id number] Unknown [id number] Social History Date Type Detail Facility Assertion Unknown if ever smoked [facility] Work Phone: Start: 01-13-2023 Caffeine use Caffeine use [facility] 205 DO Work Phone: Start: 01-13-2023 Tobacco smoking stat [facility] Never smoked tobacco [facility] Start: 01-13-2023 Tobacco use and exposure Smokeless tobacco non-user [facility] Work Phone: Start: 01-13-2023 Alcohol intake Lifetime non-d edson (finding) [facility] Work Phone: Start: 01-13-2023 Tobacco use panel [facility] Work Phone: Start: 1970 Sex Assigned At Not on file U [facility] Work Phone: Start: 01-03-2023 End: 01-13-2023 Exposure to SARS-CoV-2 (event) Not sure [facility] Functional Status Date Assessment Result Facility NEGATED: Highlighted row Functional performance Functional status health issues are not documented Disease [facility] Work Phone: Mental Status Date Assessment Result Facility NEGATED: Highlighted row Cognitive function [Interpretation] Cognitive status health issues are not documented Disease [facility] Work Phone: History of Present illness Narrative 01-13-2023 Rosalie Rey LPN - 01/13/2023 8:20 AM EDTYuli Renee MD - 01/13/2023 8:20 AM EDT Note Date & Type Note Facility 01-13-2023 History of Present illness Narrative Follow up labs Patient presents for periodic surveillance of chronic medical problems. Calin Martínez is a 52 y.o. female who presents for Follow up testing. SALVADOR Tyson presents for followup chronic cough/wheezing. States the cough is some better, has had for a few years. She wonders if may be weight related. Had labs through [facility]. Denies postnasal drainage, has GERD on prevacid 30 mg two daily and does not notice breakthrough symptoms. PFTS normal, EKG NSR with pvc,s both on her my chart reviewed, will get copies. CxR okay. Review of Systems All other systems reviewed and are negative. . Objective Visit Vitals BP 130/80 (BP Location: Left arm, Patient Position: Sitting) Pulse 96 Physical Exam Vitals and nursing note reviewed. Constitutional: General: She is not in acute distress. Appearance: Normal appearance. She is not toxic-appearing. HENT: Head: Normocephalic and atraumatic. Cardiovascular: Rate and Rhythm: Normal rate and regular rhythm. Heart sounds: No murmur heard. Pulmonary: Effort: Pulmonary effort is normal. Breath sounds: Normal breath sounds. Musculoskeletal: Cervical back: Neck supple. No rigidity. Comments: Normal gait Skin: General: Skin is warm and dry. Neurological: General: No focal deficit present. Mental Status: She is alert and oriented to person, place, and time. Psychiatric: Mood and Affect: Mood normal. Behavior: Behavior normal. Assessment/Plan Problem List Items Addressed This Visit None Visit Diagnoses Dyspnea and respiratory abnormalities - Primary Relevant Orders Transthoracic Echo (TTE) Complete Chronic cough Relevant Orders Referral to ENT Yuli Renee MD documented in this encounter [facility] Work Phone: Instructions 01-13-2023 Patient Instructions Note Date & Type Note Facility 01-13-2023 Instructions Yuli Renee MD - 01/13/2023 8:20 AM EDT Follow up pending testing, and annually for routine checkup. Call concerns. documented in this encounter [facility] Work Phone: Evaluation note Note Date & Type Note Facility documented in this encounter [facility] Work Phone: History of Present illness Narrative Note Date & Type Note Facility History of Present illness Narrative PT presents for periodic surveillance of chronic medical problems/wellness visit.Due for mammogram, agrees to same. 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 [facility] 205 DO Work Phone: History of Present illness Narrative Note Date & Type Note Facility History of Present illness Narrative Pt presents for periodic surveillance of chronic medical problems .BMI 39, weight is up, discouraged, states does like sweets, lots of stress at workDepression, stopped effexor and feels better off of it than she did taking itGERD< on meds, no current symptomsDUe for mammogram, aware she is due for colonoscopy as well, figuring out where she wants to goHas had some dyspnea with exertion, wheezing, states worsened as weight has gone up, worse when she lies flatNo chest pain, has had some swelling in ankles. [facility] Work [facility]: History of Present illness Narrative Note Date & Type Note Facility History of Present illness Narrative Pt presents for periodic surveillance of chronic medical problems .BMI 39, weight is up, discouraged, states does like sweets, lots of stress at workDepression, stopped effexor and feels better off of it than she did taking itGERD< on meds, no current symptomsDUe for mammogram, aware she is due for colonoscopy as well, figuring out where she wants to goHas had some dyspnea with exertion, wheezing, states worsened as weight has gone up, worse when she lies flatNo chest pain, has had some swelling in ankles. [facility] Work Phone: History of Present illness Narrative Note Date & Type Note Facility History of Present illness Narrative Pt presents for periodic surveillance of chronic medical problems .BMI 39, weight is up, discouraged, states does like sweets, lots of stress at workDepression, stopped effexor and feels better off of it than she did taking itGERD< on meds, no current symptomsDUe for mammogram, aware she is due for colonoscopy as well, figuring out where she wants to goHas had some dyspnea with exertion, wheezing, states worsened as weight has gone up, worse when she lies flatNo chest pain, has had some swelling in ankles. [facility] Work Phone: Reason for referral (narrative) Consultation (Routine) - Authorized Note Date & Type Note Facility Referral ID Status Reason Start Date Expiration Date Visits Requested Visits Authorized [id number] Authorized Specialty Services Required 01/13/2023 07/12/2023 1 1 * CV Imaging (Routine) - Incomplete Specialty Diagnoses / Procedures Referred By Normaac t Referred To Contact Cardiology Diagnoses Dyspnea and respiratory abnormalities Procedures Transthoracic Echo (TTE) Complete Yuli Renee MD [address] [facility] [place] [address] Referral ID Status Reason Start Date Expiration Date Visits Requested Visits Authorized [id number] Incomplete Perform Procedure 01/13/2023 07/12/2023 1 1 [facility] Work Phone: Summary Purpose Family History Unknown Family Member Name Dates Details Family history of type 1 kleber betes mellitus: Grandparent(V18.0, Z83.3) Status:Active Family history of malignant neoplasm of esophagus: Grandparent(V16.0, Z80.0) Status:Active Family history of malignant neoplasm of colon: Grandparent(V16.0, Z80.0) Status:Active Family history of malignant neoplasm of breast: Grandparent(V16.3, Z80.3) Status:Active Family history of cardiac di sorder: Mother(V17.49, Z82.49) Status:Active Family history of hypertensi on: Mother(V17.49, Z82.49) Status:Active Unknown Family Member Name Dates Details Family history of type 1 kleber betes mellitus: Grandparent(V18.0, Z83.3) Status:Active Family history of malignant neoplasm of esophagus: Grandparent(V16.0, Z80.0) Status:Active Family history of malignant neoplasm of colon: Grandparent(V16.0, Z80.0) Status:Active Family history of malignant neoplasm of breast: Grandparent(V16.3, Z80.3) Status:Active Family history of cardiac di sorder: Mother(V17.49, Z82.49) Status:Active Family history of hypertensi on: Mother(V17.49, Z82.49) Status:Active Unknown Family Member Name Dates Details Family history of hypertensi on: Mother(V17.49, Z82.49) Status:Active Family history of cardiac di sorder: Mother(V17.49, Z82.49) Status:Active Family history of malignant neoplasm of breast: Grandparent(V16.3, Z80.3) Status:Active Family history of malignant neoplasm of colon: Grandparent(V16.0, Z80.0) Status:Active Family history of malignant neoplasm of esophagus: Grandparent(V16.0, Z80.0) Status:Active Family history of type 1 kleber betes mellitus: Grandparent(V18.0, Z83.3) Status:Active Unknown Family Member Name Dates Details Family history of hypertensi on: Mother(V17.49, Z82.49) Status:Active Family history of cardiac di sorder: Mother(V17.49, Z82.49) Status:Active Family history of malignant neoplasm of breast: Grandparent(V16.3, Z80.3) Status:Active Family history of malignant neoplasm of colon: Grandparent(V16.0, Z80.0) Status:Active Family history of malignant neoplasm of esophagus: Grandparent(V16.0, Z80.0) Status:Active Family history of type 1 kleber betes mellitus: Grandparent(V18.0, Z83.3) Status:Active Unknown Family Member Name Dates Details Family history of hypertensi on: Mother(V17.49, Z82.49) Status:Active Family history of cardiac di sorder: Mother(V17.49, Z82.49) Status:Active Family history of malignant neoplasm of breast: Grandparent(V16.3, Z80.3) Status:Active Family history of malignant neoplasm of colon: Grandparent(V16.0, Z80.0) Status:Active Family history of malignant neoplasm of esophagus: Grandparent(V16.0, Z80.0) Status:Active Family history of type 1 kleber betes mellitus: Grandparent(V18.0, Z83.3) Status:Active Unknown Family Member Name Dates Details Family history of type 1 kleber betes mellitus: Grandparent(V18.0, Z83.3) Status:Active Family history of malignant neoplasm of esophagus: Grandparent(V16.0, Z80.0) Status:Active Family history of malignant neoplasm of colon: Grandparent(V16.0, Z80.0) Status:Active Family history of malignant neoplasm of breast: Grandparent(V16.3, Z80.3) Status:Active Family history of cardiac di sorder: Mother(V17.49, Z82.49) Status:Active Family history of hypertensi on: Mother(V17.49, Z82.49) Status:Active Unknown Family Member Name Dates Details Family history of hypertensi on: Mother(V17.49, Z82.49) Status:Active Family history of cardiac di sorder: Mother(V17.49, Z82.49) Status:Active Family history of malignant neoplasm of breast: Grandparent(V16.3, Z80.3) Status:Active Family history of malignant neoplasm of colon: Grandparent(V16.0, Z80.0) Status:Active Family history of malignant neoplasm of esophagus: Grandparent(V16.0, Z80.0) Status:Active Family history of type 1 kleber betes mellitus: Grandparent(V18.0, Z83.3) Status:Active Advance Directives No Advanced Directives Records FoundNo Advanced Directives Records FoundNo Advanced Directives Records Found Chief Complaint medication refills. 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 DESIGNER cough, pitting edema, BLEckup, wt gain, difficulty breathing, audible wheezing, dry, hoarse, INTERFACE DESIGNER cough, pitting edema, BLE Additional Source Comments INFORMATION SOURCE (unrecogn ized section and content) DATE CREATED AUTHOR AUTHOR'S ORGANIZ ATION 11/26/2022 [facility] DATE CREATED AUTHOR AUTHOR'S ORGANIZ ATION 11/26/2022 [employer] Reason for Visit (unrecogniz ed section and content) Care Teams (unrecognized sec tion and content) FOR RECORDS PERTAINING TO PATIENTS WHO ARE OR HAVE BEEN ENROLLED IN A CHEMICAL DEPENDENCY/SUBSTANCEABUSE PROGRAM, SOME INFORMATION MAY BE OMITTED. This clinical summary was aggregated from multiple sources. Caution should be exercised in using it in the provision of clinical care. This summary normalizes information from multiple sources, and as a consequence, information in this document may materially change the coding, format and clinical context of patient data. In addition, data may be omitted in some cases. CLINICAL DECISIONS SHOULD BE BASED ON THE PRIMARY CLINICAL RECORDS. [facility] [employer] provides no warranty or guarantee of the accuracy or completeness of information in this document.
[2023-12-07 09:26] VITALS: BP 107/68; PULSE 74; RESP 16; TEMP 36.7; O2SAT 100; BMI 29.7
[2023-12-07] MEDS: Lactated Ringers 1,000 ML 15 ML IV (09:40)
--- NOTE | 2023-12-07 09:50 | RAD_ITS ---
PROCEDURE: Caudal epidural steroid injection. DATE OF EXAMINATION: December 07, 2023. INDICATION: Female, 53 years old. Chronic low back pain. FLUOROSCOPY TIME (if supplied): (5 seconds) minutes/seconds. 1.64 mGy. 2 images were submitted. RAD/Fluor Guidance for Spine Inj IMPRESSION: Intraoperative imaging provided for caudal epidural steroid injection. Electronically Signed: Issac Dasilva MD at 9:39 EDT ,
[2023-12-07] MEDS: Lidocaine 1% (5 ml sdv) 5 ML Vial (10:27)
[2023-12-07] MEDS: 0.9% Normal Saline (Pres. free 10 ML Vial (10:27)
[2023-12-07] MEDS: MethylPREDNISolone Acetate 80 MG/ML Vial (10:27)
[2023-12-07 10:35] VITALS: BP 107/68; BP 97/60; PULSE 74; RESP 16; TEMP 36.3; O2SAT 95
[2023-12-07 10:40] VITALS: BP 107/68; BP 95/59; PULSE 77; RESP 16; O2SAT 94
[2023-12-07 10:45] VITALS: BP 107/68; BP 87/72; PULSE 74; RESP 16; O2SAT 93
[2023-12-07 10:53] VITALS: BP 107/68; BP 107/74; PULSE 72; RESP 16; TEMP 36.5; O2SAT 98
--- NOTE | 2023-12-07 10:53 | OP.PCM_ITS ---
Report of Operation Date of Procedure: 12/07/23 Pre-Operative Diagnosis: Lumbosacral radiculopathy, lumbosacral degenerative di sc disease, lumbosacral spinal stenosis Post-Operative Diagnosis: Lumbosacral radiculopathy, lumbosacral degenerative disc disease, lumbosacral spinal stenosis Surgery/Procedure Performed:: Diagnostic/therapeutic caudal epidural steroid injection under fluoroscopic guidance Type of Anesthesia: MAC Estimated Blood Loss (mL): Minimal Description of Procedure: DESCRIPTION OF PROCEDURE: History and physical of today was reviewed. Risks and benefits of the procedure were explained. The patient understood and agreed to proceed. Informed consent was obtained. IV inserted per routine protocol. The patient was taken to the operating room and placed in the prone position with a pillow positioned underneath the abdomen. The lower back and tailbone area was prepped and draped in a sterile fashion using iodine x3. Under fluoroscopy guidance on a lateral view, the caudal space was identified. The skin and subcutaneous tissue was anesthetized with approximately 3 mL of 1% lidocaine using a 25-gauge regular needle. Under direct visualization with fluoroscopy, using a 22-gauge 3-1/2-inch spinal needle, the needle was advanced via the skin through the sacral hiatus. The tip of the needle was passed through the sacrococcygeal ligament and advanced to approximately S4 area. After negative aspiration of blood or CSF, a total of 3 mL of contrast was injected to confirm correct placement of the needle as well as cephalad spread. The spread was followed to approximately L5 area. After confirmation on AP as well as lateral view and repeated negative aspiration, a total of 15 mL of preservative-free 0.125% Marcaine with 80 mg of Depo-Medrol was injected easily. The needle was then removed intact. The patient experienced no sign or symptoms of intrathecal or intravascular injection. The patient experienced no paresthesia. The procedure was completed without any apparent difficulty or any complications. The patient appeared to tolerate it well. ASSESSMENT AND PLAN: This is a 53-year-old female with lumbosacral radiculopathy, lumbosacral degenerative disc disease, lumbosacral spinal stenosis status post diagnostic/therapeutic caudal epidural steroid injection, patient will continue her current medications, patient will follow in approximately 2 weeks for reevaluation. Complications None
[2023-12-07 11:08] VITALS: BP 107/68
== END 2023-12-07 11:11 | disposition home or self-care (01) ==
LOC: SDC 08:51 → AC 08:54
PROVIDERS: PCP Family Medicine; Referring Provider Anesthesiology Pain Medicine; Visit Provider Anesthesiology Pain Medicine
PROC: 3E0S3BZ Introduction of Anesthetic Agent into Epidural Space, Percutaneous Approach (ICD-10-PCS; CPT 62282; principal; 2023-12-07 10:45)
DX: M48.07 Spinal stenosis, lumbosacral region (principal); M51.17 Intervertebral disc disorders with radiculopathy, lumbosacral region; Z90.722 Acquired absence of ovaries, bilateral; Z90.49 Acquired absence of other specified parts of digestive tract; Z90.710 Acquired absence of both cervix and uterus; M51.37 Other intervertebral disc degeneration, lumbosacral region; M62.830 Muscle spasm of back; G50.0 Trigeminal neuralgia; M54.81 Occipital neuralgia; G44.89 Other headache syndrome; G90.59 Complex regional pain syndrome I of other specified site
CPT/HCPCS: 62323; 64483; 77003; J7120; J3490

== ENCOUNTER 2024-03-25 07:01 | Day surgery (SDC) | payer OTHER, SELFPAY ==
[2024-03-25] VITALS (7 sets, daily range): BP systolic 90–112; BP diastolic 57–65; PULSE 67–78; RESP 16; TEMP 36.1–36.4; O2SAT 98–100; BMI 31.6
[2024-03-25] MEDS: Lactated Ringers 1,000 ML 15 ML IV (07:18)
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
--- NOTE | 2024-03-25 08:18 | RAD_ITS ---
PROCEDURE: Bilateral L4-L5 and L5-S1 facet joint block. DATE OF EXAMINATION: March 25, 2024. INDICATION: Female, 53 years old. Chronic low back pain. FLUOROSCOPY TIME (if supplied): (30 seconds) minutes/seconds. 11.25 mGy. 6 fluoroscopic images were submitted. RAD/L/S Spine Min 4 Views IMPRESSION: Fluoroscopic services provided for the lateral L4-L5 and L5-S1 facet joint block. Electronically Signed: Issac Dasilva MD at 8:55 EDT ,
[2024-03-25] MEDS: Bupivacaine 0.25% 30 ML Vial (08:25)
[2024-03-25] MEDS: MethylPREDNISolone Acetate 80 MG/ML Vial (08:26)
[2024-03-25] MEDS: Lidocaine 1% (5 ml sdv) 5 ML Vial (08:26)
--- NOTE | 2024-03-25 08:30 | OP.PCM_ITS ---
Report of Operation Date of Procedure: 03/25/24 Pre-Operative Diagnosis: Lumbosacral spondylosis, lumbosacral disc disease, lum bar facet arthropathy Post-Operative Diagnosis: Lumbosacral spondylosis, lumbosacral disc disease, lumbar facet arthropathy Description of Surgical Findings:: PROCEDURE PERFORMED: Bilateral lumbar facet steroid injection, L4, L5, and S1. ANESTHESIA: MAC. BLOOD LOSS: Minimal. COMPLICATIONS: None. DESCRIPTION OF PROCEDURE: History and physical of today was reviewed. Risks and benefits of the procedure were explained. The patient understood and agreed to proceed. Informed consent was obtained. IV inserted per routine protocol. The patient was taken to the operating room and placed in the prone position with a pillow positioned underneath the abdomen. The lower back area was prepped and draped in a sterile fashion using iodine x3. Under fluoroscopy guidance on AP view, the L4 through S1 vertebral bodies were visualized. The skin and subcutaneous tissue was anesthetized with approximately 5 mL of 1% lidocaine using a 25-gauge regular needle. Under direct visualization with fluoroscopy, at approximately 25-degree angle, starting on the left L4, ending on the right L4, passing through the L5 and S1 bilaterally, using a 22-gauge 3-1/2-inch spinal needle, the needle was advanced via the skin. The tip of the needle was maneuvered and directed towards the superior medial gutter of the transverse process at the vicinity of the medial branch. Once tip of the needle was in contact with the bone, the needle was pulled approximately 2 mm off the bone. After negative aspiration for blood or CSF and confirmation on AP, oblique as well as lateral view, a total of 12 mL of preservative-free 0.25% Marcaine with 80 mg of Depo-Medrol was injected in divided doses between those six levels. The needles were then removed intact. The patient experienced no sign or symptoms of intrathecal or intravascular injection. The patient experienced no paresthesia. The procedure was completed without any apparent difficulty or any complications. The patient appeared to tolerate it well. ASSESSMENT AND PLAN: This is a 53-year-old female with lumbosacral spondylosis, lumbosacral degenerative disease, lumbar facet arthropathy status post bilateral lumbar facet steroid injection L4-S1, patient will continue current medications, patient will follow up in approximately 2 weeks for reevaluation.
--- NOTE | 2024-03-25 08:56 | PCM.POST.ANE ---
Anesthesia: Postop Eval I Current Vital Signs Temperature: 97.5 F Pulse Rate: 75 Blood Pressure: 90/65 Respiratory Rate: 16 Pulse Ox: 100 Oxygen Delivery Method: Room Air Assessment Airway patent: Yes Spontaneous unlabored respirations: Yes Mental status: Awake and Calm nausea: No Vomiting: No Anesthesia Complication: No Fluid Hydration Crystalloid volume administer (ml): 500 Total IV fluid infused: 500 Progress Note Anesthesia document: Postop Eval 1 completed: Yes
--- NOTE | 2024-03-25 09:09 | PCM.POSTANE2 ---
Anesthesia Postop Eval I Sum Postop Eval Completion status Anesthesia document: Postop Eval 1 completed: Yes Anesthesia Postop Eval I Summary Anesthesia Postop Eval I Summary: Anesthesia Postop Eval I: Assessment Summary Airway patent Yes 03/25/24 08:57 Spontaneous unlabored Yes 03/25/24 08:57 respirations Mental status Awake,Calm 03/25/24 08:57 nausea No 03/25/24 08:57 Vomiting No 03/25/24 08:57 Anesthesia Postop Eval I: Fluid Summary Crystalloid volume administer 500 03/25/24 08:57 (ml) Colloids volume administered ( ml) Blood Product volume administered (ml) Total IV fluid infused 500 03/25/24 08:57 Anesthesia Postop Eval I: Summary Notes Anesthesia Complication No 03/25/24 08:57 Anesthesia Complication Comment: Post-operative progress note Anesthesia: Postop Eval II Evaluation Mental status: Awake Pain Level: 0 nausea: No Vomiting: No Complications Anesthesia Complication: No
== END 2024-03-25 09:08 | disposition home or self-care (01) ==
LOC: SDC 07:02 → AC 07:03
PROVIDERS: PCP Family Medicine; Referring Provider Anesthesiology Pain Medicine; Visit Provider Anesthesiology Pain Medicine
PROC: 3E0T3BZ Introduction of Anesthetic Agent into Peripheral Nerves and Plexi, Percutaneous Approach (ICD-10-PCS; CPT 64494; principal; 2024-03-25 08:10)
DX: M47.817 Spondylosis without myelopathy or radiculopathy, lumbosacral region (principal); M51.37 Other intervertebral disc degeneration, lumbosacral region; M46.96 Unspecified inflammatory spondylopathy, lumbar region; M62.830 Muscle spasm of back; G44.89 Other headache syndrome; M54.81 Occipital neuralgia; Z79.899 Other long term (current) drug therapy
CPT/HCPCS: 64494; 64493; 64483; 72110; J7120; J2405

== ENCOUNTER 2024-06-20 09:33 | Day surgery (SDC) | payer OTHER, SELFPAY ==
[2024-06-20] VITALS (8 sets, daily range): BP systolic 94–110; BP diastolic 66–82; PULSE 74–83; RESP 16–18; TEMP 36.3–36.6; O2SAT 96–100; BMI 34.2
--- NOTE | 2024-06-20 09:40 | RAD_ITS ---
PROCEDURE: Caudal epidural steroid injection. DATE OF EXAMINATION: June 20, 2024. INDICATION: Female, 53 years old. Low back pain. FLUOROSCOPY TIME (if supplied): (4 seconds) minutes/seconds. 4.39 mGy.. One image was submitted. RAD/Fluor Guidance for Spine Inj IMPRESSION: Intraoperative imaging provided for caudal block. Electronically Signed: Issac Dasilva MD at 14:30 EDT ,
[2024-06-20] MEDS: Lactated Ringers 1,000 ML 15 ML IV (10:06)
[2024-06-20] MEDS: Lidocaine 1% (5 ml sdv) 5 ML Vial (10:12)
[2024-06-20] MEDS: MethylPREDNISolone Acetate 80 MG/ML Vial (10:12)
[2024-06-20] MEDS: 0.9% Normal Saline (Pres. free 10 ML Vial (10:12)
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
--- NOTE | 2024-06-20 11:14 | PCM.POST.ANE ---
Anesthesia: Postop Eval I Current Vital Signs Temperature: 97.3 F Pulse Rate: 78 Blood Pressure: 97/66 Respiratory Rate: 16 Pulse Ox: 100 Oxygen Delivery Method: Room Air Assessment Airway patent: Yes Spontaneous unlabored respirations: Yes Mental status: Awake and Calm nausea: No Vomiting: No Anesthesia Complication: No Fluid Hydration Crystalloid volume administer (ml): 200 Total IV fluid infused: 200 Progress Note Anesthesia document: Postop Eval 1 completed: Yes
--- NOTE | 2024-06-20 11:21 | OP.PCM_ITS ---
Report of Operation Date of Procedure: 06/20/24 Pre-Operative Diagnosis: Lumbosacral radiculopathy, lumbosacral degenerative di sc disease, lumbosacral spinal stenosis Post-Operative Diagnosis: Lumbosacral radiculopathy, lumbosacral degenerative disc disease, lumbosacral spinal stenosis Surgery/Procedure Performed:: Diagnostic/therapeutic caudal epidural steroid injection under fluoroscopic guidance Type of Anesthesia: MAC Estimated Blood Loss (mL): Minimal Description of Procedure: DESCRIPTION OF PROCEDURE: History and physical of today was reviewed. Risks and benefits of the procedure were explained. The patient understood and agreed to proceed. Informed consent was obtained. IV inserted per routine protocol. The patient was taken to the operating room and placed in the prone position with a pillow positioned underneath the abdomen. The lower back and tailbone area was prepped and draped in a sterile fashion using iodine x3. Under fluoroscopy guidance on a lateral view, the caudal space was identified. The skin and subcutaneous tissue was anesthetized with approximately 3 mL of 1% lidocaine using a 25-gauge regular needle. Under direct visualization with fluoroscopy, using a 22-gauge 3-1/2-inch spinal needle, the needle was advanced via the skin through the sacral hiatus. The tip of the needle was passed through the sacrococcygeal ligament and advanced to approximately S4 area. After negative aspiration of blood or CSF, a total of 3 mL of contrast was injected to confirm correct placement of the needle as well as cephalad spread. The spread was followed to approximately L5 area. After confirmation on AP as well as lateral view and repeated negative aspiration, a total of 15 mL of preservative-free 0.125% Marcaine with 80 mg of Depo-Medrol was injected easily. The needle was then removed intact. The patient experienced no sign or symptoms of intrathecal or intravascular injection. The patient experienced no paresthesia. The procedure was completed without any apparent difficulty or any complications. The patient appeared to tolerate it well. ASSESSMENT AND PLAN: This is a 53-year-old female with lumbosacral radiculopathy, lumbosacral degenerative disc disease, lumbosacral spinal stenosis status post diagnostic/therapeutic caudal epidural steroid injection, patient will continue her current medications, patient will follow in approximately 2 weeks for reevaluation. Complications None
--- NOTE | 2024-06-20 12:35 | POSTOPAN2_ITS ---
Anesthesia Postop Eval I Sum Postop Eval Completion status Anesthesia document: Postop Eval 1 completed: Yes Anesthesia Postop Eval I Summary Anesthesia Postop Eval I Summary: Anesthesia Postop Eval I: Assessment Summary Airway patent Yes 06/20/24 11:15 MOLDER MEAT.DESTINEEOBMar Spontaneous unlabored Yes 06/20/24 11:15 MOLDER MEAT.YAZAN respirations Mental status Awake,Calm 06/20/24 11:15 MOLDER MEAT.DESTINEEOBMar nausea No 06/20/24 11:15 MOLDER MEAT.YAZAN Vomiting No 06/20/24 11:15 MOLDER MEAT.YAZAN Anesthesia Postop Eval I: Fluid Summary Crystalloid volume administer 200 06/20/24 11:15 MOLDER MEAT.DESTINEEOBY (ml) Colloids volume administered ( ml) Blood Product volume administered (ml) Total IV fluid infused 200 06/20/24 11:15 MOLDER MEAT.YAZAN Anesthesia Postop Eval I: Summary Notes Anesthesia Complication No 06/20/24 11:15 MOLDER MEAT.YAZAN Anesthesia Complication Comment: Post-operative progress note Anesthesia: Postop Eval II Evaluation Mental status: Awake and Calm Pain Level: 1 nausea: No Vomiting: No Complications Anesthesia Complication: No
--- NOTE | 2024-06-20 12:35 | PCM.POSTANE2 ---
Anesthesia Postop Eval I Sum Postop Eval Completion status Anesthesia document: Postop Eval 1 completed: Yes Anesthesia Postop Eval I Summary Anesthesia Postop Eval I Summary: Anesthesia Postop Eval I: Assessment Summary Airway patent Yes 06/20/24 11:15 [email or web address] Spontaneous unlabored Yes 06/20/24 11:15 [email or web address] [email or web address] respirations Mental status Awake,Calm 06/20/24 11:15 [email or web address] [email or web address] nausea No 06/20/24 11:15 [email or web address] [email or web address] Vomiting No 06/20/24 11:15 [email or web address] [email or web address] Anesthesia Postop Eval I: Fluid Summary Crystalloid volume administer 200 06/20/24 11:15 [email or web address] (ml) Colloids volume administered ( ml) Blood Product volume administered (ml) Total IV fluid infused 200 06/20/24 11:15 [email or web address] [email or web address] Anesthesia Postop Eval I: Summary Notes Anesthesia Complication No 06/20/24 11:15 [email or web address] [email or web address] Anesthesia Complication Comment: Post-operative progress note Anesthesia: Postop Eval II Evaluation Mental status: Awake and Calm Pain Level: 1 nausea: No Vomiting: No Complications Anesthesia Complication: No
== END 2024-06-20 11:45 | disposition home or self-care (01) ==
LOC: SDC 09:35 → AC 09:37
PROVIDERS: PCP Family Medicine; Referring Provider Anesthesiology Pain Medicine; Visit Provider Anesthesiology Pain Medicine
PROC: 3E0S3BZ Introduction of Anesthetic Agent into Epidural Space, Percutaneous Approach (ICD-10-PCS; CPT 62282; principal; 2024-06-20 10:35)
DX: M48.07 Spinal stenosis, lumbosacral region (principal); M51.17 Intervertebral disc disorders with radiculopathy, lumbosacral region; Z98.51 Tubal ligation status; M62.830 Muscle spasm of back; G50.0 Trigeminal neuralgia; M54.81 Occipital neuralgia; G44.89 Other headache syndrome; G90.59 Complex regional pain syndrome I of other specified site; Z79.891 Long term (current) use of opiate analgesic; M46.96 Unspecified inflammatory spondylopathy, lumbar region
CPT/HCPCS: 62323; 64483; 77003; J7120; J3490

== ENCOUNTER 2024-10-24 08:35 | Day surgery (SDC) | payer OTHER, SELFPAY ==
[2024-10-24] VITALS (9 sets, daily range): BP systolic 86–106; BP diastolic 61–77; PULSE 67–76; RESP 16; TEMP 36.7–37.2; O2SAT 95–99; BMI 38.4
--- NOTE | 2024-10-24 10:02 | RAD_ITS ---
PROCEDURE: Caudal block. DATE OF EXAMINATION: October 24, 2024. INDICATION: Female, 54 years old. Chronic low back pain. FLUOROSCOPY TIME (if supplied): (4.2 seconds) minutes/seconds. 4.47 mGy. One image was submitted. RAD/Fluor Guidance for Spine Inj IMPRESSION: Intraoperative imaging provided for caudal block. Electronically Signed: Issac Dasilva MD at 14:49 EST ,
[2024-10-24] MEDS: fentaNYL 100 MCG/2 ML Ampul (10:08)
[2024-10-24] MEDS: Midazolam 2 MG/2 ML Syringe (10:08)
[2024-10-24] MEDS: Bupivacaine 0.25% 30 ML Vial (10:11)
[2024-10-24] MEDS: Lidocaine 1% (5 ml sdv) 5 ML Vial (10:11)
[2024-10-24] MEDS: MethylPREDNISolone Acetate 80 MG/ML Vial (10:11)
[2024-10-24] MEDS: 0.9% Normal Saline (Pres. free 10 ML Vial (10:11)
--- NOTE | 2024-10-24 10:15 | OP.PCM_ITS ---
Operative Report (Standard) Operative Information Date of Procedure: 10/24/24 Pre-Operative Diagnosis: 1 Post-Operative Diagnosis: 1 Surgery/Procedure Performed: 1 slumber room attendant: No Type of Anesthesia: IV Sedation and Local RN Documented Start/Stop Times: Operation Date: 10/24/24 10:00 Case Time Into Pre-Op 10/24/24 09:16 Anesthesia Start 10/24/24 10:03 Into Room 10/24/24 10:03 Out of Pre-Op 10/24/24 10:03 Procedure Start 10/24/24 10:07 Procedure End 10/24/24 10:14 Procedure Start Time: 10:15 Procedure Stop Time: 10:15 Select all DRAINS/GRAFTS/IMPLANTS that apply: None Estimated Blood Loss: 1 Specimen collected: No Description of surgery: Pre-Operative Diagnosis: Lumbosacral radiculopathy, lumbosacral degenerative disc disease, lumbosacral spinal stenosis Post-Operative Diagnosis: Lumbosacral radiculopathy, lumbosacral degenerative disc disease, lumbosacral spinal stenosis Surgery/Procedure Performed:: Diagnostic/therapeutic caudal epidural steroid injection under fluoroscopic guidance Type of Anesthesia: local Estimated Blood Loss (mL): Minimal Description of Procedure: DESCRIPTION OF PROCEDURE: History and physical of today was reviewed. Risks and benefits of the procedure were explained. The patient understood and agreed to proceed. Informed consent was obtained. IV inserted per routine protocol. The patient was taken to the operating room and placed in the prone position with a pillow positioned underneath the abdomen. The lower back and tailbone area was prepped and draped in a sterile fashion using iodine x3. Under fluoroscopy guidance on a lateral view, the caudal space was identified. The skin and subcutaneous tissue was anesthetized with approximately 3 mL of 1% lidocaine using a 25-gauge regular needle. Under direct visualization with fluoroscopy, using a 22-gauge 3-1/2-inch spinal needle, the needle was advanced via the skin through the sacral hiatus. The tip of the needle was passed through the sacrococcygeal ligament and advanced to approximately S4 area. After negative aspiration of blood or CSF, a total of 3 mL of contrast was injected to confirm correct placement of the needle as well as cephalad spread. The spread was followed to approximately L5 area. After confirmation on AP as well as lateral view and repeated negative aspiration, a total of 15 mL of preservative-free 0.125% Marcaine with 80 mg of Depo-Medrol was injected easily. The needle was then removed intact. The patient experienced no sign or symptom s of intrathecal or intravascular injection. The patient experienced no paresthesia. The procedure was completed without any apparent difficulty or any complications. The patient appeared to tolerate it well. ASSESSMENT AND PLAN: This is a 54-year-old female with lumbosacral radiculopathy, lumbosacral degenerative disc disease, lumbosacral spinal stenosis status post diagnostic/therapeutic caudal epidural steroid injection, patient will continue her current medications, patient will follow in approximately 2 weeks for reevaluation. Surgical Findings: 0 Complications Complications: No Admit VTE Documentation VTE Present on Admission: No VTE Mechan Device Prophylaxis: None VTE Pharm Prophylaxis ordered?: No
== END 2024-10-24 11:01 | disposition home or self-care (01) ==
LOC: SDC 08:37 → AC 08:38
PROVIDERS: PCP Family Medicine; Referring Provider Anesthesiology Pain Medicine; Visit Provider Anesthesiology Pain Medicine
PROC: 3E0S3BZ Introduction of Anesthetic Agent into Epidural Space, Percutaneous Approach (ICD-10-PCS; CPT 62282; principal; 2024-10-24 09:55)
DX: M51.17 Intervertebral disc disorders with radiculopathy, lumbosacral region (principal); M48.07 Spinal stenosis, lumbosacral region
CPT/HCPCS: 62323; 64483; 77003; 99152; A4216

== ENCOUNTER → 2024-11-11 | Outpatient (CLI) | payer OTHER, SELFPAY ==
[2024-11-11 12:26] LABS: Vitamin D,25 Hydroxy 48.6 ng/mL
[2024-11-11 12:31] LABS: ALB/GLOB Ratio 1.2 RATIO (0.9-2.4); AST(SGOT) 22 U/L (15-37); Alanine Aminotransfer ALT/SGPT 30 U/L (13-56); Albumin, Serum 4.2 g/dL (3.2-5.0); Alkaline Phosphatase 91 U/L (45-117); Anion Gap 12 (5-15); BUN 11 mg/dL (7-18); Calcium,Total 9.6 mg/dL (8.5-10.1); Chloride 108 mmol/L (98-107); Cholesterol 164 mg/dL (200); Creatinine, Serum 0.84 mg/dL (0.55-1.02); EST Glomerular Filtration Rate 75 mL/min (>60); Est Glom Filt Rate - Afr Amer 91 mL/min (>60); Globulin 3.6 g/dL (2.2-4.2); Glucose 82 mg/dL (74-106); High Density Lipoprotein 64 mg/dL; Potassium 3.9 mmol/L (3.5-5.1); Protein, Total 7.8 g/dL (6.4-8.2); Sodium Level 141 mmol/L (136-145); Triglycerides 63 mg/dL; Very Low Density Lipoprotein 13 mg/dL (5-40)
[2024-11-11 12:35] LABS: Absolute Lymphocyte Count 1.16 X10^3/uL (0.83-4.51); Absolute Neutrophil Count 4.2 X10^3/uL (2.0-7.7); Basophil# 0.04 X10^3/uL; Basophil% 0.7 % (0-1); Eosinophil# 0.14 X10^3/uL; Eosinophils% 2.4 % (0-5); Hematocrit 45.9 % (37-47); Hemoglobin 15.5 g/dL (12.0-15.0); Lymphocyte # 1.16 X10^3/ul (0.83-4.51); Lymphocyte % 19.6 % (19-41); Mean Corp Hgb Conc 33.8 g/dL (32-36); Mean Corpuscular Hgb 30.5 pg (27.0-32.0); Mean Corpuscular Volume 90.4 fL (81-99); Mean Platelet Vol. 11.5 fl (6.2-12.0); Monocyte# 0.35 X10^3/uL; Monocyte% 5.9 % (0-10); NRBC Flagged by Analyzer 0 % (0-5); Neutrophil # 4.17 X10^3/uL (2.7-7.7); Neutrophil % 70.4 % (47-70); Platelet Count 176 K/mm3 (150-450); RBC Distribution Width CV 13.7 % (11.6-14.6); RBC Distribution Width SD 45.3 fl (35.1-43.9); Red Blood Count 5.08 M/mm3 (4.2-5.4); White Blood Count 5.9 K/mm3 (4.4-11.0)
[2024-11-13 20:12] LABS: Hemoglobin A1c 5.6 % (3.8-5.6)
== END | disposition home or self-care (01) ==
LOC: BWCLAB 10:25
PROVIDERS: PCP Family Medicine; Referring Provider Obstetrics & Gynecology; Visit Provider Obstetrics & Gynecology
DX: Z13.1 Encounter for screening for diabetes mellitus (principal); Z13.6 Encounter for screening for cardiovascular disorders; Z13.220 Encounter for screening for lipoid disorders; Z13.29 Encounter for screening for other suspected endocrine disorder; E66.89 Other obesity not elsewhere classified; N95.1 Menopausal and female climacteric states
CPT/HCPCS: 36415; 80053; 80061; 82306; 83036; 84443; 85025

== ENCOUNTER 2025-01-02 12:00 | Outpatient (RCR) | payer OTHER, SELFPAY ==
--- NOTE | 2024-12-02 10:20 | HP.PTEVAL ---
Patient's Visit Information Visit Information Visit Information: BRISSA STEELE is a 54 year old F referred to Physical Therapy by Dr. Philip Gerber MD with a diagnosis of RADICULOPATHY ,LUMBAR ,SPINAL STENOSIS. Date of Evaluation: 12/02/24 Physical Therapist: Jerry Montes, PT, Cert MDT, OCS Visit Plan Frequency: 2x /Week Duration: 4 Weeks Plan: PT INTERVENTIONS ROBERTA PROGRESSION OF FORCES ,POSTURE/BODY MECHANICS TRAINING ,PROGRESS TO DLS ,POSTURAL EX'S AND MODALITIES Subjective Subjective: This 54 y/o female presents to physical therapy for with lumbar radiculopathy . Patient has symptoms for~ 3 years with lumbar radiculopathy bilateral legs left > right . Patient has seen Dr Gerber for pain management last 10/26 helped temporarily . Patient has had MRI 2022 Small L4-5 disc protrusion without nerve root impingement.No recent imaging. Patient over counter medication. Symmetrical glut lateral thigh to anterior .Aggregate factors standing ,walking bending and lifting ,sitting. Alleviating factors extension.Coughing/sneezing -. Bowel/bladder-. PT in past did not really help. Massage. Patient symptoms don't affect sleeping. Denies paresthesia/tingling occasionally . Patient condition affects job demands and housework tasks. 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 Back: Pain Intensity (Out of 10): 3 Pain Intensity Range: 10 Left Lower Extremity: Pain Intensity (Out of 10): 2 Pain Intensity Range: 10 Comment: WORKINHG AND STANDING 7-8/10 Objective Objective: POSTURE: mild forward posture GAIT: reciprocal pattern NEURO: denies paresthesia/tingling ,L3-4,L4-5,L5-S1 1/3 PALPATION: unremarkable LUMBAR ROM: flexion min loss ,extension mod loss ,side glides min loss MMT: ( peak force) quads left 20.8 ,left hip flexion 22.9 ,left hams 4/5 ,ankle 4/5 ,right quads/hams/hip 4/5 Special Tests L/S Slump test left side: Negative L/S Slump test right side: Negative L/S Left Straight Leg Raise: Negative L/S Right Straight Leg Raise: Negative Lumbar Standing: Flexion - Mechanical Response: No effect Lumbar Standing: Flexion - Symptoms During Testing: Increases Lumbar Standing: Flexion - Symptoms After Testing: Worse Lumbar Standing: Extension - Mechanical Response: No effect Lumbar Standing: Extension - Symptoms During Testing: Increases Lumbar Standing: Extension - Symptoms After Testing: No worse Comments:: back Lumbar Standing: Right Side Glides - Mechanical Response: No effect Lumbar Standing: Right Side [place] - Symptoms During Testing: No effect Lumbar Standing: Right Side [place] - Symptoms After Testing: No effect Lumbar Standing: Left Side [place] - Mechanical Response: No effect Lumbar Standing: Left Side [place] - Symptoms During Testing: No effect Lumbar Standing: Left Side [place] - Symptoms After Testing: No effect Lumbar Lying: Flexion - Mechanical Response: No effect Lumbar Lying: Flexion - Symptoms During Testing: Increases Lumbar Lying: Flexion - Symptoms After Testing: Worse Comments:: left back Lumbar Lying: Extension - Mechanical Response: Increases motion Lumbar Lying: Extension - Symptoms During Testing: Centralizing Comments:: back with back and mechanical response with extension Balance/Special Test Scores Oswestry Low Back Score: 28 Goals Goal 1:: Patient to be I with HEP for back Goal Time Frame: 4-6 Weeks Goal 2:: Patient to improve lumbar ROM for function of recovery for job and putting shoes Goal Time Frame: 4-6 Weeks Goal 3:: Patient to improve peak force quads/hip left by 5-10# to improve function Goal Time Frame: 4-6 Weeks Goal 4:: Patient to improve back oswestry score by 5 points to improve QOL/function Goal Time Frame: 4-6 Weeks Goal 5:: Patient to demonstrate by 50% to improve function and job demands Goal Time Frame: 4-6 Weeks Rehabilitation Potential Physical Therapy Diagnosis: This patient lumbar radiculopathy with derangement with h/p protruding disc 2022 with pain with motion testing and positioning increases with flexion some better with extension thus benefit from skilled PT Rehabilitation Potential: Good Anticipated Interventions Patient/Client Instruction: Educate patient on: Condition and Plan of Care For the Purpose of:: To decrease pain, To increase ROM, To improve muscle performance and motor function, To improve ability to perform ADL's, To increase tolerance to activity/condition/position, To improve ability of physical actions for home/community/work/leisure, To improve health of tissue, To decrease soft tissue restriction, To increase flexibility/ROM, To improve endurance, To reduce risk of recurrence and To improve tolerance to ADL's Therapeutic Exercise to Include: Strength training, Body mechanics, Postural training, Flexibilty training and Roberta Exercises For the Purpose of:: To decrease pain, To increase ROM, To improve muscle performance and motor function, To improve ability of physical actions for home/community/work/leisure, To improve health of tissue, To decrease soft tissue restriction, To increase flexibility/ROM and To reduce risk of recurrence Manual Therapy Techniques to Include: Mobilization Comment: LUMBAR For the Purpose of:: To decrease pain and To increase ROM TENS: Yes IF ES: Yes Cryotherapy (ice pack, ice massage): Yes Thermo therapy (hot pack): Yes Ultrasound (thermal/non thermal): Yes For the Purpose of:: To decrease pain, To increase ROM, To improve health of tissue, To decrease soft tissue restriction, To increase flexibility/ROM and To improve tolerance to ADL's Text: Thank you for the opportunity to evaluate your patient. For Medicare and Medicare HMO plans, please review the plan of care and approve it. It will need to be FAXED BACK to us at [phone] for Medicare purposes. For Medicare only, by signing this I certify the plan of care. Please let me know if there are questions or concerns regarding this plan of care. Physician Signature: Date:
--- NOTE | 2025-02-08 08:40 | HP.PTDCSUM ---
Discharge Summary D/C summary: It has been my pleasure to treat BRISSA STEELE referred by Dr. Philip Gerber MD, with the diagnosis of RADICULOPATHY ,LUMBAR ,SPINAL STENOSIS for a total of 7 visit(s). Discharge Date: Please see the following information for a summary of their discharge status. 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 SYMPTOMS BUT WORKING ALL DAY INCREASES SYMPTOMS IN LEGS ,PATIENT HAS SHOWN PROGRESS WITH INCREASING STRENGTH IN LEFT LEG POSTURE: mild forward posture GAIT: reciprocal pattern NEURO: denies paresthesia/tingling ,L3-4,L4-5,L5-S1 1/3 PALPATION: unremarkable LUMBAR ROM: flexion min loss ,extension mod loss ,side glides min loss MMT: ( peak force) quads left 25.8 ,left hip flexion 27.9 ,left hams 4/5 ,ankle 4/5 ,right quads/hams/hip 4/5 Goals Goal 1:: Patient to be I with HEP for back Goal 2:: Patient to improve lumbar ROM for function of 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 Thank you for the referral of this patient. Sincerely, Jerry Montes, PT, Cert MDT, OCS Balance/Gait/Functional tests Balance/Special Test Scores Oswestry Low Back Score: 28
== END 2025-01-02 19:00 | disposition home or self-care (01) ==
LOC: PT 12:00
PROVIDERS: PCP Family Medicine; Referring Provider Anesthesiology Pain Medicine; Visit Provider Anesthesiology Pain Medicine
DX: M48.07 Spinal stenosis, lumbosacral region (principal); M54.17 Radiculopathy, lumbosacral region
CPT/HCPCS: 97110; 97162; 97530

== ENCOUNTER → 2025-01-06 | Outpatient (CLI) | payer OTHER, SELFPAY ==
--- NOTE | 2025-01-06 10:48 | MRI_ITS ---
EXAM: MRI lumbar spine without IV contrast CLINICAL HISTORY: Pain, radiculopathy COMPARISON: None TECHNIQUE: Multisequence multiplanar MR images of the lumbar spine were obtained without the administration of intravenous contrast. Imaging sequences were performed to best displaced suspected pathology. FINDINGS: Vertebral body heights are within normal limits. Negative for fracture or marrow replacement. Alignment is intact. Conus medullaris is within normal limits and terminates at L1-L2. No paraspinal mass. L1-2: No focal disc abnormality, spinal stenosis or foraminal narrowing. L2-3: No focal disc abnormality, spinal stenosis or foraminal narrowing. L3-4: No focal disc abnormality, spinal stenosis or foraminal narrowing. L4-5: Posterior disc bulge. Moderate bilateral facet arthrosis/ligamentum flavum hypertrophy, greater on the right, including a right intraspinal synovial cyst measuring 4 x 9 x 10 mm narrowing the right lateral recess. Mild/moderate spinal stenosis. Mild bilateral foraminal narrowing. L5-S1: No focal disc abnormality. Mild/moderate bilateral facet arthrosis. No significant spinal stenosis. Mild bilateral foraminal narrowing. MRI/Spine Lumbar (Routine) IMPRESSION: 1. Acquired mild/moderate spinal and right lateral recess stenosis at L4-5 as a liban. 2. Acquired mild bilateral foraminal narrowing from L4 through S1. Reading Location: [facility]
== END | disposition home or self-care (01) ==
PROVIDERS: PCP Family Medicine; Referring Provider Anesthesiology Pain Medicine; Visit Provider Anesthesiology Pain Medicine
DX: M54.17 Radiculopathy, lumbosacral region (principal)
CPT/HCPCS: 72148

== ENCOUNTER 2025-01-09 06:39 | Day surgery (SDC) | payer OTHER, SELFPAY ==
[2025-01-09] VITALS (8 sets, daily range): BP systolic 92–115; BP diastolic 52–76; PULSE 73–81; RESP 12–18; TEMP 36.2–36.6; O2SAT 93–97; BMI 36.3
--- NOTE | 2025-01-09 07:00 | RAD_ITS ---
PROCEDURE: LUMBAR SPINE 2 OR 3 VIEWS 01/09/2025 REASON FOR EXAM: TRANSFORAMINAL EPIDURAL STERIOD INJECTION L3-L5,LEFT TECHNIQUE: 2 fluoroscopic images were submitted. Fluoroscopy time was 16.2 seconds. Peak skin radiation dose was 6.1 mGy. COMPARISON: 01/06/2025 FINDINGS: See impression RAD/Lumbar Spine 2 or 3 Views IMPRESSION: Fluoroscopic guidance provided during left L3 through L5 epidural steroid injec tions. See operative report for further details. Reading Location: [facility]
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
[2025-01-09] MEDS: Bupivacaine 0.25% 30 ML Vial (08:09)
[2025-01-09] MEDS: MethylPREDNISolone Acetate 80 MG/ML Vial (08:09)
[2025-01-09] MEDS: Lidocaine 1% (5 ml sdv) 5 ML Vial (08:09)
--- NOTE | 2025-01-09 08:17 | PCM.POST.ANE ---
Anesthesia: Postop Eval I Current Vital Signs Temperature: 97.3 F Pulse Rate: 76 Blood Pressure: 115/76 Respiratory Rate: 18 Pulse Ox: 93 Assessment Airway patent: Yes Spontaneous unlabored respirations: Yes nausea: No Vomiting: No Anesthesia Complication: No Fluid Hydration Crystalloid volume administer (ml): 10 Total IV fluid infused: 10 Progress Note Anesthesia document: Postop Eval 1 completed: Yes
--- NOTE | 2025-01-09 08:26 | OP.PCM_ITS ---
Operative Report (Standard) Operative Information Date of Procedure: 01/09/25 Pre-Operative Diagnosis: Lumbosacral radiculopathy, lumbosacral spinal stenosis, lumbosacral degenerative disc disease Post-Operative Diagnosis: Lumbosacral radiculopathy, lumbosacral spinal stenosis, lumbosacral degenerative disc disease Surgery/Procedure Performed: 1 durability engineer: No Type of Anesthesia: Local MAC RN Documented Start/Stop Times: Operation Date: 01/09/25 08:00 Case Time Into Pre-Op 01/09/25 06:44 Anesthesia Start 01/09/25 08:01 Into Room 01/09/25 08:01 Procedure Start 01/09/25 08:09 Procedure End 01/09/25 08:14 Anesthesia End 01/09/25 08:17 Out of Room 01/09/25 08:17 Into Recovery 01/09/25 08:20 Procedure Start Time: 08:27 Procedure Stop Time: 08:28 Select all DRAINS/GRAFTS/IMPLANTS that apply: None Estimated Blood Loss: 0 Specimen collected: No Description of surgery: PREOPERATIVE DIAGNOSIS: Lumbosacral stenosis, lumbosacral radiculopathy, lumbosacral degenerative disc disease POSTOPERATIVE DIAGNOSIS: Lumbosacral stenosis, lumbosacral radiculopathy, lumbosacral degenerative disc disease PROCEDURE PERFORMED: Left-sided lumbar transforaminal epidural steroid injection, L4-5 and L5-S1. ANESTHESIA: MAC BLOOD LOSS: None COMPLICATIONS: None DESCRIPTION OF PROCEDURE: History and physical of today was reviewed. Risks and benefits of the procedure were explained. The patient understood and agreed to proceed. Informed consent was obtained. IV inserted per routine protocol. The patient was taken to the operating room and placed in the prone position with a pillow positioned underneath the abdomen. The left side of the lower back was prepped and draped in a sterile fashion using iodine x3. Under fluoroscopy guidance on oblique view, the L4 through S1 vertebral bodies were visualized. The skin and subcutaneous tissue was anesthetized with approximately 5 mL of 1% lidocaine using a 25-gauge regular needle. Under direct visualization with fluoroscopy at approximately 35-degree angle, starting on the left L4, ending on the left L5, using a 22-gauge 5-inch spinal needle, the needle was advanced via the skin. The tip of the needle was maneuvered and directed towards the inferior and medial gutter of the transverse process at the superiormost aspect of the neural foramen. Once the tip of the needle was at the vicinity of the foramen, after negative aspiration for blood or CSF, a total of 1 mL of contrast was injected in divided doses between both levels to confirm correct placement of the needle as well as medial spread. The confirmation was obtained on AP as well as lateral view. After repeated negative aspiration and confirmation on AP as well as lateral view, a total of 6 mL of preservative-free 0.25% Marcaine with 80 mg of Depo-Medrol was injected in divided doses between both levels. The needles were then removed intact. The patient experienced no sign or symptoms of intrathecal or intravascular injection. The patient experienced no paresthesia. The procedure was completed without any apparent di fficulty or any complications. The patient appeared to tolerate it well. Assessment and plan: This is a 54-year-old female with lumbosacral radiculopathy, lumbosacral degenerative disc disease, lumbosacral spinal stenosis, status post left-sided lumbar transforaminal epidural steroid injection L4-5, L5-S1, patient will continue her current medications, patient will follow up in approximately 2 weeks for reevaluation. Surgical Findings: 1 Complications Complications: No Admit VTE Documentation VTE Present on Admission: No
--- NOTE | 2025-01-09 08:31 | POSTOPAN2_ITS ---
Anesthesia Postop Eval I Sum Postop Eval Completion status Anesthesia document: Postop Eval 1 completed: Yes Anesthesia Postop Eval I Summary Anesthesia Postop Eval I Summary: Anesthesia Postop Eval I: Assessment Summary Airway patent Yes 01/09/25 08:17 EXHIBITIONS AND COLLECTIONS MANAGER.CSIR Spontaneous unlabored Yes 01/09/25 08:17 EXHIBITIONS AND COLLECTIONS MANAGER.CSIR respirations Mental status nausea No 01/09/25 08:17 EXHIBITIONS AND COLLECTIONS MANAGER.CSIR Vomiting No 01/09/25 08:17 EXHIBITIONS AND COLLECTIONS MANAGER.CSIR Anesthesia Postop Eval I: Fluid Summary Crystalloid volume administer 10 01/09/25 08:17 EXHIBITIONS AND COLLECTIONS MANAGER.CSIR (ml) Colloids volume administered ( ml) Blood Product volume administered (ml) Total IV fluid infused 10 01/09/25 08:17 EXHIBITIONS AND COLLECTIONS MANAGER.CSIR Anesthesia Postop Eval I: Summary Notes Anesthesia Complication No 01/09/25 08:17 EXHIBITIONS AND COLLECTIONS MANAGER.CSIR Anesthesia Complication Comment: Post-operative progress note Anesthesia: Postop Eval II Evaluation Mental status: Awake Pain Level: 3 nausea: No Vomiting: No
--- NOTE | 2025-01-09 08:31 | PCM.POSTANE2 ---
Anesthesia Postop Eval I Sum Postop Eval Completion status Anesthesia document: Postop Eval 1 completed: Yes Anesthesia Postop Eval I Summary Anesthesia Postop Eval I Summary: Anesthesia Postop Eval I: Assessment Summary Airway patent Yes 01/09/25 08:17 COMMUNICATIONS ELECTRICIAN SUPERVISOR.CSIR Spontaneous unlabored Yes 01/09/25 08:17 COMMUNICATIONS ELECTRICIAN SUPERVISOR.CSIR respirations Mental status nausea No 01/09/25 08:17 COMMUNICATIONS ELECTRICIAN SUPERVISOR.CSIR Vomiting No 01/09/25 08:17 COMMUNICATIONS ELECTRICIAN SUPERVISOR.CSIR Anesthesia Postop Eval I: Fluid Summary Crystalloid volume administer 10 01/09/25 08:17 COMMUNICATIONS ELECTRICIAN SUPERVISOR.CSIR (ml) Colloids volume administered ( ml) Blood Product volume administered (ml) Total IV fluid infused 10 01/09/25 08:17 COMMUNICATIONS ELECTRICIAN SUPERVISOR.CSIR Anesthesia Postop Eval I: Summary Notes Anesthesia Complication No 01/09/25 08:17 COMMUNICATIONS ELECTRICIAN SUPERVISOR.CSIR Anesthesia Complication Comment: Post-operative progress note Anesthesia: Postop Eval II Evaluation Mental status: Awake Pain Level: 3 nausea: No Vomiting: No
== END 2025-01-09 08:53 | disposition home or self-care (01) ==
LOC: SDC 06:39 → AC 06:40
PROVIDERS: PCP Family Medicine; Referring Provider Anesthesiology Pain Medicine; Visit Provider Anesthesiology Pain Medicine
PROC: 3E0S3BZ Introduction of Anesthetic Agent into Epidural Space, Percutaneous Approach (ICD-10-PCS; principal; 2025-01-09 07:55)
DX: M51.17 Intervertebral disc disorders with radiculopathy, lumbosacral region (principal); M48.07 Spinal stenosis, lumbosacral region; Z98.51 Tubal ligation status; Z90.710 Acquired absence of both cervix and uterus; M62.830 Muscle spasm of back; G50.0 Trigeminal neuralgia; M54.81 Occipital neuralgia; G44.89 Other headache syndrome; G90.59 Complex regional pain syndrome I of other specified site; Z79.891 Long term (current) use of opiate analgesic; M46.96 Unspecified inflammatory spondylopathy, lumbar region
CPT/HCPCS: 64483; 72100; A4216; J2405

== ENCOUNTER → 2025-02-08 | Outpatient (CLI) | payer OTHER, SELFPAY | END | disposition home or self-care (01) | LOC: LABSPEC 14:51 | PROVIDERS: PCP Family Medicine; Referring Provider Obstetrics & Gynecology; Visit Provider Obstetrics & Gynecology | DX: R32 Unspecified urinary incontinence (principal) | CPT/HCPCS: 87086 ==

== ENCOUNTER 2025-03-24 16:04 | Inpatient (IN) | payer OTHER, SELFPAY ==
[2025-03-24] VITALS (11 sets, daily range): BP systolic 91–133; BP diastolic 47–85; PULSE 84–115; RESP 15–22; TEMP 36–38.1; O2SAT 93–100; BMI 37.2
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
--- NOTE | 2025-03-24 17:08 | CT_ITS ---
PROCEDURE: ABDOMEN/PELVIS W IV CONT ONLY 03/24/2025 REASON FOR EXAM: ABDOMINAL PAIN TECHNIQUE: ABDOMEN/PELVIS W IV CONT ONLY. Coronal and Sagittal reconstruction series were provided. CONTRAST: 96 cc Isovue 370 One or more dose reduction techniques were used (e.g., Automated exposure control, adjustment of the mA and/or kV according to patient size, use of iterative reconstruction technique. FINDINGS: There is no free-fluid. There is no free air. There is no bowel obstruction. Normal appearance of the liver and spleen. Normal appearance of the gallbladder. Normal pancreas. Normal adrenal glands. No renal calculi or hydronephrosis. There is wall thickening involving the left colon with infiltration of the adjacent fat. There is no abscess. CT/Abdomen/Pelvis W IV Cont ONLY IMPRESSION: Colitis on the left. No obstruction. Lung bases are clear Reading [facility]
[2025-03-24] MEDS: Ondansetron 4 MG/2 ML Vial IV (17:20)
[2025-03-24] MEDS: 0.9% Normal Saline (1000mL) 1,000 ML 999 ML IV ×2 (17:20→22:16)
[2025-03-24] MEDS: Dicyclomine 20 MG/2 ML Vial IM (17:20)
[2025-03-24 18:10] LABS: Absolute Lymphocyte Count 1.01 X10^3/uL (0.83-4.51); Absolute Neutrophil Count 13.5 X10^3/uL (2.0-7.7); Basophil# 0.02 X10^3/uL; Basophil% 0.1 % (0-1); Hematocrit 43.2 % (37-47); Hemoglobin 14.8 g/dL (12.0-15.0); Lymphocyte # 1.01 X10^3/ul (0.83-4.51); Lymphocyte % 6.7 % (19-41); Mean Corp Hgb Conc 34.3 g/dL (32-36); Mean Corpuscular Hgb 30.5 pg (27.0-32.0); Mean Corpuscular Volume 88.9 fL (81-99); Mean Platelet Vol. 11.6 fl (6.2-12.0); Monocyte# 0.51 X10^3/uL; Monocyte% 3.4 % (0-10); NRBC Flagged by Analyzer 0 % (0-5); Neutrophil # 13.47 X10^3/uL (2.7-7.7); Neutrophil % 89.3 % (47-70); Platelet Count 251 K/mm3 (150-450); RBC Distribution Width SD 42.4 fl (35.1-43.9); Red Blood Count 4.86 M/mm3 (4.2-5.4); White Blood Count 15.1 K/mm3 (4.4-11.0)
[2025-03-24 18:27] LABS: ALB/GLOB Ratio 1.6 RATIO (0.9-2.4); AST(SGOT) 21 U/L (<=31); Alanine Aminotransfer ALT/SGPT 18 U/L (<=34); Albumin, Serum 4.5 g/dL (3.5-5.0); Alkaline Phosphatase 106 U/L (35-104); Anion Gap 14 (5-15); BUN 11 mg/dL (4-19); Calcium,Total 10.1 mg/dL (7.6-11.0); Carbon Dioxide 23.2 mmol/L (21.0-32.0); Chloride 105 mmol/L (98-108); Creatinine, Serum 0.74 mg/dL (0.70-1.20); EST Glomerular Filtration Rate 98 (>60); Estimated Creatinine Clearance 101.35 ml/min (50-250); Globulin 2.8 g/dL (2.2-4.2); Glucose 110 mg/dL (70-99); Lipase 15 U/L (13-75); Potassium 3.7 mmol/L (3.3-5.1); Protein, Total 7.3 g/dL (5.9-8.4); Sodium Level 142 mmol/L (133-145); Total Bilirubin 0.47 mg/dL (0.00-1.30)
[2025-03-24] MEDS: metroNIDAZOLE 500 MG/100 ML BAG 100 MG IV (19:44)
[2025-03-24 20:00] LABS: Mucous, Urine 0 SEEN /hpf (<or=2+); Squamous Epithelial Cells - UA 0 SEEN /hpf (5-10)
[2025-03-24 20:27] LABS: Color, Urine Straw (Yellow); Glucose, Dipstick Normal (Normal); Ketone-Dipstick Negative (Negative); Leukocyte Esterase-Dipstick Negative /ul (Negative); Nitrite-Dipstick Negative (Negative); Occult Blood-Urine 50 /ul (Negative); Protein-Dipstick 15 mg/dl (Negative); Urine Bilirubin Dipstick Negative (Negative); Urine Clarity Clear (Clear); Urine Urobilinogen Normal (Normal)
[2025-03-24 20:52] LABS: Red Blood Cells-Urine 0-5 SEEN /hpf (0-5); White Blood Cells 0-5 SEEN /hpf (0-5)
[2025-03-24 20:53] LABS: Bacteria RARE /hpf (None Seen)
[2025-03-24] MEDS: Ciprofloxacin 400 MG/200 ML BAG 200 MG IV (21:00)
[2025-03-24] MEDS: Acetaminophen 500 MG Tablet 1000 MG PO (22:16)
[2025-03-24] MEDS: 0.9% Normal Saline (1000mL) 1,000 ML 1000 ML IV (23:24)
[2025-03-24 23:42] LABS: International Normalized Ratio 1.2; Partial Thromboplast Time 32.9 Seconds (24.1-36.2)
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
[2025-03-25] VITALS (15 sets, daily range): BP systolic 90–114; BP diastolic 48–67; PULSE 77–94; RESP 14–18; TEMP 36.2–38.3; O2SAT 92–97; BMI 37.3
--- OUTSIDE RECORDS SUMMARY | 2025-03-25 00:42 | XMS RPT_ITS | CCD ---
Author Organization [facility] Care Team Providers Care Classification Analyst Name Role Phone Tequila Renee Julie O Unavailable Unavailable Jones, Julie O Unavailable Unavailable Jones, Julie O Unavailable Unavailable Tequila Renee Unavailable Unavailable Tequila Renee Unavailable Unavailable Tequila Renee Unavailable Unavailable Tequila Renee Unavailable Tequila Renee Unavailable Unavailable Tequila Renee Unavailable Unavailable Tequila Renee Unavailable Unavailable Unavailable Dr. Tequila Renee Primary Care Provider Dr. Tequila Renee Referring Provider Dr. Navya Mead Attending Provider Lisa COLBERT, FILEMON Tsang Attending Provider MD TEQUILA RENEE Referring MD TEQUILA Prabhakar Primary Care MD TEQUILA Prabhakar Attending MD TEQUILA Prabhakar Referring MD TEQUILA Prabhakar Primary Care MD TEQUILA Prabhakar Attending Dr. Tequila Prabhakar Primary Care Provider [phone] Dr. Tequila Renee Referring Provider Dr. Sarwat Romeo Attending Provider [phone] Dr. Tequila Renee Other Provider [phone] Prakash Handley Attending Provider [phone] Tequila Renee MD Primary Care Provider Dr. Tequila Renee Primary Care Provider Dr. Tequila Renee Referring Provider Dr. Sarwat Romeo Attending Provider Dr. Tequila Renee Other Provider Dr. Prakash Handley Attending Provider Dr. Prakash Handley Referring Provider Dr. Navya Mead Attending Provider Dr. Belén Ordoñez Attending Provider Dr. Soy Wright Attending Provider Dr. Tequila Renee Primary Care Provider Dr. Tequila Renee Referring Provider Dr. Navya Mead Attending Provider Gloria COLBERT PACrC Mahi Attending Provider Dr. Donald Polk Attending Provider Dr. Belén Ordoñez Attending Provider Dr. Donald Polk Referring Provider Dr. Donald Polk Other Provider Dr. Tequila Renee Primary Care Provider Dr. Tequila Renee Referring Provider Dr. Navya Mead Attending Provider Dr. Tequila Renee Primary Care Provider Dr. Tequila Renee Referring Provider Dr. Tequila Renee MD Primary Care Provider Dr. Philip Gerber MD Attending Provider [phone] Buzz DUNBAR, Dr. Palacios Referring Provider [phone] Tai DUNBAR, Dr. Tequila Donato Referring Provider Dr. Navya Mead MD Attending Provider [phone] Dr. Navya Mead MD Referring Provider Tequila Renee MD Primary Care Provider TEQUILA RENEE Attending Unavailable TEQUILA RENEE Primary Care Unavailable Philip Gerber Attending Unavailable Buzz, Philip Referring Unavailable Tai, Tequila Donato Primary Care Unavailable Buzz, Philip Attending Unavailable Buzz, Philip Referring Unavailable Tai, Tequila O Primary Care Unavailable Buzz, Philip Attending Unavailable Buzz, Philip Referring Unavailable Tai, Tequila O Primary Care Unavailable Philip Gerber Attending Unavailable Philip Gerber Referring Unavailable Tai, Tequila O Primary Care Unavailable Tai, Tequila O Referring Unavailable Tai, Tequila O Primary Care Unavailable Navya Mead Attending Unavailable Tai, Tequila O Referring Unavailable Tai, Tequila O Primary Care Unavailable [place], Navya Attending Unavailable Saeanthsusanne, Navya Attending Unavailable Tai, Tequila O Referring Unavailable Tai, Tequila O Primary Care Unavailable Tai, Tequila O Referring Unavailable Tai, Tequila O Primary Care Unavailable Navya Mead Attending Unavailable [place], Navya Attending Unavailable Tai, Tequila O Referring Unavailable Tai, Tequila O Primary Care Unavailable Tai, Tequila O Referring Unavailable Tai, Tequila O Primary Care Unavailable Kasey Watters Attending Unavailable Job, Diaz Attending Unavailable Diaz Kaiser Referring Unavailable Tai, Tequila O Primary Care Unavailable Navya Mead Referring Unavailable Tai, Tequila O Primary Care Unavailable [place], Navya Attending Unavailable Philip Gerber Attending Unavailable Philip Gerber Referring Unavailable Tai, Tequila O Primary Care Unavailable Philip Gerber Attending Unavailable Philip Gerber Referring Unavailable Tai, Tequila O Primary Care Unavailable Navya Mead Referring Unavailable [place], Navya Attending Unavailable Tai, Tequila O Primary Care Unavailable Allergies Allergy Classification Reported Allergen(s) Allergy Type Date of Onset Reaction(s) Facility (20 sources) morphine; Translations: [morphine] Drug Allergy 09-02-[address] [facility] Repository (7 sources) Morphine; Translations: [Duramorph SOLN] Drug Allergy [facility] 205 DO Work Phone: Medications Current Medications Medication Drug Class(es) Dates Sig (Normalized) Sig (Original) acetaminophen 500 mg oral tablet (4 sources) Start: 03-24-2024 Acetaminophen (Acetaminophen Pain Relief) 500 mg tablet Active 1000 mg PO EVERY 6 HOURS as needed for pain March 24, 2024 12:00am acetaminophen 325 mg / oxyCODONE hydrochloride 5 mg oral tablet (20 sources) Opioid Agonist Start: 12-20-2024 oxyCODONE-acetaminop hen (Percocet) 5-325 mg tablet 12/20/2024 Active Start: 11-06-2020 End: 11-13-2020 Oxycodone-Acetaminophen 1 TA BLET tablet Discontinued 1 - 2 {tbl} PO EVERY 6 HOURS NEEDED as needed for Pain 15 November 06, 2020 November 12, 2020 1:00am November 13, 2020 1:03am Start: 11-06-2020 End: 11-13-2020 take 1 tablet by mouth every six hours as needed Oxycodone-Acetaminophen Discontinued 1 - 2 TABLET PO EVERY 6 HOURS NEEDED 15 November 06, 2020 November 13, 2020 12:03am benzonatate 200 mg oral capsule (4 sources) Non-narcotic Antitussive Start: 09-02-2022 take 200 mg by mouth three times daily Benzonatate Active 200 MG PO THREE TIMES A DAY September 02, 2022 1:00am 12 hr buPROPion hydrochloride 90 mg / naltrexone hydrochloride 8 mg extended release oral tablet (20 sources) Opioid Antagonist, Aminoketone Start: 11-11-2024 Naltrexone-Buprop ion (Contrave) 8-90 mg tablet extended release Active 2 {tbl} PO TWICE A DAY 336 84 November 11, 2024 1:00am Start: 03-24-2024 End: 06-20-2024 Naltrexone-Bupropion (Contra ve) 8-90 mg tablet extended release Discontinued 2 {tbl} PO TWICE A DAY March 24, 2024 12:00am June 20, 2024 9:52am Start: 01-30-2023 End: 03-15-2024 Naltrexone-Bupropion (Contra ve) 8-90 mg tablet extended release Discontinued 2 {tbl} PO TWICE A DAY 120 December 10, 2023 6:35pm March 15, 2024 2:23pm cyclobenzaprine hydrochloride 10 mg oral tablet (1 source) Muscle Relaxant Start: 12-20-2024 cyclobenzaprin e (Flexeril) 10 mg tablet 12/20/2024 Active 168 hr estradiol 0.514217 mg/hr transdermal system (20 sources) Estrogen Start: 01-20-2025 Menostar 14 mc g/24 hr 01/20/2025 Active Start: 03-15-2024 Estradiol 14 m cg/24 hr patch weekly Active 1 NMA TD EVERY WEEK 4 March 15, 2024 2:24pm Start: 07-24-2022 End: 03-15-2024 Estradiol 0.1 mg/24 hr patch weekly Discontinued 1 NMA TD EVERY WEEK 4 July 31, 2023 5:47pm March 15, 2024 2:24pm Start: 07-24-2022 End: 07-31-2023 apply 1 dose transdermal route every week Estradiol Active 1 PATCH TD EVERY WEEK 4 July 31, 2023 4:47pm Start: 07-15-2021 End: 07-24-2022 Estradiol 0.075 mg/24 hr pat ch weekly Discontinued 1 NMA TD EVERY WEEK 4 July 15, 2021 3:25pm July 24, 2022 4:22pm Start: 07-15-2021 End: 07-24-2022 apply 1 dose transdermal route every week Estradiol Discontinued 1 PATCH TD EVERY WEEK 4 July 15, 2021 2:25pm July 24, 2022 3:22pm Start: 04-23-2021 End: 07-15-2021 Estradiol (Climara) 0.06 mg/ 24 hr patch weekly Discontinued 1 NMA TD EVERY WEEK 4 April 23, 2021 12:00am July 15, 2021 3:26pm Start: 04-23-2021 End: 07-15-2021 Estradiol (Climara) 0.06 mg/ 24 hr patch weekly Discontinued 1 PATCH TD EVERY WEEK 4 April 22, 2021 11:00pm July 15, 2021 2:26pm End: 02-03-2025 estradiol (Climara) 0.075 mg /[address] on the skin. 02/03/2025 Discontinued (Med List Cleanup) estradiol (Clima ra) 0.075 mg/[address] on the skin. 0 Active evening primrose oil 500 mg oral capsule (4 sources) Start: 07-24-2022 take 500 mg by mouth three times daily Evening Buffalo Oil Active 500 MG PO THREE TIMES A DAY July 24, 2022 12:00am give with meal/snack LORazepam 0.5 mg oral tablet (1 source) Benzodiazepine Start: 08-20-2023 take 1 tablet by mouth three times daily as needed LORazepam (Ativan) 0.5 mg tablet Indications: Grieving Take 1 tablet (0.5 mg) by mouth 3 times a day as needed (May cause sedation). 30 tablet 08/20/2023 Active Multivitamin Capsule (4 sources) Start: 01-30-2023 Multivitamin Capsule Active 1 NMA PO DAILY January 30, 2023 12:00am Multivitamin preparation (11 sources) Start: 01-30-2023 take 1 capsule by mouth once daily Multivitamin Active 1 CAP PO DAILY January 29, 2023 11:00pm Start: 01-30-2023 take 1 capsule by mo ut once daily Multivitamin Active 1 CAP PO DAILY January 30, 2023 12:00am naproxen 250 mg oral tablet (20 sources) Nonsteroidal Anti-inflammatory Drug Start: 11-06-2020 take 250-500 mg by mouth every eight hours as needed for pain Naproxen 250 MG tablet Active 250 - 500 mg PO EVERY 8 HOURS NEEDED as needed for MILD PAIN November 06, 2020 1:00am Start: 07-26-2019 End: 04-20-2020 take 1 tablet by mouth twice daily Naproxen Sodium (Aleve) 220 mg tablet Discontinued 220 mg PO TWICE A DAY July 26, 2019 12:00am April 20, 2020 12:27pm Start: 10-05-2013 End: 07-26-2019 take 1 tablet by mouth twice daily as needed for pain Naproxen 500 MG tablet Discontinued 500 mg PO TWICE DAILY NEEDED as needed for Pain October 05, 2013 1:00am July 26, 2019 1:31pm predniSONE 10 mg oral tablet (4 sources) Start: 09-02-2022 take 10 mg by mouth twice daily Prednisone Active 10 MG PO TWICE A DAY September 02, 2022 1:00am pregabalin 100 mg oral capsule (20 sources) Start: 01-19-2025 take 1 capsule by mouth three times daily pregabalin (Lyrica) 100 mg capsule Take 1 capsule (100 mg) by mouth 3 times a day. 01/19/2025 Active Start: 11-11-2024 Pregabalin (Ly dottie) 200 mg capsule Active 150 mg PO DAILY November 11, 2024 10:37am Start: 02-20-2020 End: 02-03-2025 take 1 capsule by mouth once daily Pregabalin (Lyrica) 200 mg capsule Discontinued 200 mg PO DAILY February 20, 2020 12:00am November 11, 2024 10:37am Start: 01-25-2016 End: 11-23-2019 take 1 capsule by mouth at breakfast Pregabalin 150 MG capsule Discontinued 150 mg PO WITH BREAKFAST January 25, 2016 12:00am November 23, 2019 2:40pm Start: 01-25-2016 End: 11-23-2019 take 1 capsule by mouth at bedtime Pregabalin 50 MG capsule Discontinued 50 mg PO AT BEDTIME January 25, 2016 12:00am November 23, 2019 2:40pm 24 hr venlafaxine 150 mg extended release oral capsule (20 sources) Serotonin and Norepinephrine Reuptake Inhibitor Start: 07-05-2020 take 150 mg by mouth once daily Venlafaxine Active 150 MG PO DAILY July 05, 2020 12:00am Start: 08-18-2019 take 2 capsules by m outh once daily Venlafaxine HCl ER 75 MG Oral Capsule Extended Release 24 Hour TAKE 2 CAPSULE Daily Quantity: 180 Refills: 1 Ordered: 09-Jul-2022 Tequila Renee MD Start : 18-Aug-2019 Active Start: 07-26-2019 End: 02-03-2025 take 1 capsule by mouth once daily Venlafaxine (Effexor Xr) 75 mg capsule,extended release 24hr Discontinued 75 mg PO DAILY July 05, 2020 12:00am July 24, 2022 3:51pm take one 75mg and 150mg daily for 225mg total Start: 12-02-2017 End: 07-26-2019 take 1 capsule by mouth every twenty-four hours at bedtime Venlafaxine 37.5 mg capsule,extended release 24hr Discontinued 37.5 mg PO AT BEDTIME December 02, 2017 1:00am July 26, 2019 1:31pm Start: 11-23-2017 End: 07-26-2019 take 1 capsule by mouth every twenty-four hours at bedtime Venlafaxine (Effexor Xr) 75 mg capsule,extended release 24hr Discontinued 75 mg PO AT BEDTIME November 23, 2017 1:00am July 26, 2019 1:32pm take 1 capsule by [facility] every twenty-four hours Venlafaxine HCl ER 150 MG Oral Capsule Extended Release 24 Hour Quantity: 0 Refills: 0 Ordered: 05-Nov-2020 DO Active Completed/Discontinued Medications Medication Drug Class(es) Dates Sig (Normalized) Sig (Original) acetaminophen 325 mg / HYDROcodone bitartrate 5 mg oral tablet (19 sources) Opioid Agonist Start: 12-02-2017 End: 07-26-2019 Hydrocodone-Acetami nophen 1 TABLET tablet Discontinued 1 {tbl} PO EVERY 6 HOURS NEEDED as needed for Pain 10 December 02, 2017 1:00am July 26, 2019 1:31pm Start: 12-02-2017 End: 07-26-2019 take 1 tablet by mouth every six hours as needed Hydrocodone-Acetaminophen Discontinued 1 TABLET PO EVERY 6 HOURS NEEDED 10 December 02, 2017 12:00am July 26, 2019 12:31pm carBAMazepine 100 mg chewable tablet (19 sources) Mood Stabilizer Start: 01-25-2016 End: 07-26-2019 take 1 tablet by mouth twice daily Carbamazepine 100 MG tablet,chewable Discontinued 100 mg PO TWICE A DAY January 25, 2016 12:00am July 26, 2019 1:32pm celecoxib 200 mg oral capsule (19 sources) Nonsteroidal Anti-inflammatory Drug Start: 04-11-2020 End: 04-20-2020 take 1 capsule by mouth three times daily as needed for pain Celecoxib 200 MG capsule Discontinued 200 mg PO THREE TIMES A DAY as needed for Pain Or Fever April 11, 2020 12:00am April 20, 2020 12:27pm cephalexin 500 mg oral capsule (19 sources) Cephalosporin Antibacterial Start: 11-23-2017 End: 12-03-2017 take 1 capsule by mouth every twelve hours Cephalexin (Keflex) 500 mg capsule Discontinued 500 mg PO Q12H 24 07November 23, 2017 1:00am December 02, 2017 1:00am December 03, 2017 1:05am 24 hr desvenlafaxine succinate 25 mg extended release oral tablet (4 sources) Serotonin and Norepinephrine Reuptake Inhibitor Start: 03-15-2024 End: 06-20-2024 take 1 tablet by mouth once daily, then take 1 tablet by mouth every twenty-four hours Desvenlafaxine Succinate (Pristiq) 25 mg tablet extended release 24 hr Discontinued 25 mg PO DAILY March 15, 2024 12:00am June 20, 2024 9:52am 168 hr ethinyl estradiol 0.17094 mg/hr / norelgestromin 0.71416 mg/hr transdermal system (20 sources) Progestin, Estrogen Start: 07-26-2019 End: 02-20-2020 Norelgestromin-Ethin .Estradiol (Xulane) 150-35 mcg/24 hr patch weekly Discontinued 1 NMA TD Q7D September 15, 2019 11:18am February 20, 2020 8:45am change weekly use continuously Start: 07-26-2019 End: 02-20-2020 Norelgestromin-Ethin.Estradi ol (Xulane) 150-35 mcg/24 hr patch weekly Discontinued 1 PATCH TD Q7D September 15, 2019 10:18am February 20, 2020 7:45am change weekly use continuously famciclovir 500 mg oral tablet (3 sources) Herpes Simplex Virus Nucleoside Analog DNA Polymerase Inhibitor Start: 12-01-2022 take 1 tablet by mouth three times daily Famciclovir 500 MG Oral Tablet TAKE 1 TABLET 3 TIMES DAILY. Quantity: 21 Refills: 0 Ordered: 01-Dec-2022 Tequila Renee MD Start : 01-Dec-2022 Active fluconazole 150 mg oral tablet (20 sources) Azole Antifungal Start: 07-31-2023 End: 09-07-2023 Fluconazole 150 mg tablet Discontinued 150 mg PO Every 3 Days 2 July 31, 2023 12:00am September 07, 2023 3:04pm Start: 04-20-2020 End: 07-05-2020 take 1 tablet by mouth once daily Fluconazole 100 MG tablet Discontinued 100 mg PO DAILY April 20, 2020 12:00am July 05, 2020 11:29am ibuprofen 800 mg oral tablet (19 sources) Nonsteroidal Anti-inflammatory Drug Start: 01-25-2016 End: 04-20-2020 take 1 tablet by mouth three times daily as needed for pain Ibuprofen 800 MG tablet Discontinued 800 mg PO 3 TIMES DAILY NEEDED as needed for Mild-Mod Pain (1-5/10) January 25, 2016 12:00am April 20, 2020 12:27pm indomethacin 50 mg oral capsule (19 sources) Nonsteroidal Anti-inflammatory Drug Start: 07-26-2019 End: 11-23-2019 take 1 capsule by mouth twice daily Indomethacin 50 mg capsule Discontinued 50 mg PO TWICE A DAY July 26, 2019 12:00am November 23, 2019 2:40pm lansoprazole 30 mg delayed release oral capsule (20 sources) Proton Pump Inhibitor Start: 09-07-2023 End: 11-11-2024 take 1 capsule by mouth once daily Lansoprazole (Prevacid) 30 mg capsule,delayed release(DR/EC) Discontinued 30 mg PO DAILY September 07, 2023 3:32pm September 07, 2023 3:49pm Start: 02-20-2020 End: 09-07-2023 take 2 capsules by mouth once daily Lansoprazole (Prevacid) 30 mg capsule,delayed release(DR/EC) Discontinued 60 mg PO DAILY February 20, 2020 12:00am September 07, 2023 3:04pm Start: 01-25-2016 End: 02-20-2020 take 1 capsule by mouth at bedtime Lansoprazole 30 MG capsule Discontinued 30 mg PO AT BEDTIME January 25, 2016 12:00am February 20, 2020 8:46am Start: 01-25-2016 End: 02-20-2020 take 30 mg by mouth at bedtime Lansoprazole Discontinu ed 30 MG PO AT BEDTIME January 25, 2016 12:00am February 20, 2020 8:46am 1 ml leuprolide acetate 7.5 mg/ml prefilled syringe (20 sources) Gonadotropin Releasing Hormone Receptor Agonist Start: 07-06-2020 End: 07-24-2022 inject 7.5 mg by intramuscular injection every two months Leuprolide (Lupron Depot) 7.5 mg syringe kit Discontinued 15 mg IM every 2 months August 31, 2020 9:38am July 24, 2022 3:49pm topiramate 25 mg oral tablet (4 sources) Start: 12-10-2023 End: 03-15-2024 take 1 tablet by mouth twice daily before breakfast Topiramate (Topamax) 25 mg tablet Discontinued 25 mg PO TWICE A DAY 60 December 10, 2023 1:00am March 15, 2024 2:07pm take before breakfast and before dinner Turmeric extract (19 sources) Start: 07-24-2022 End: 09-07-2023 take 1 capsule by mouth once daily Turmeric 400 mg capsule Discontinued 400 mg PO DAILY July 24, 2022 12:00am September 07, 2023 3:04pm Start: 07-24-2022 End: 09-07-2023 take 400 mg by mouth once daily Turmeric Discontinued 400 MG PO DAILY July 23, 2022 11:00pm September 07, 2023 2:04pm Start: 07-24-2022 take 400 mg by mouth once daily Turmeric Active 400 MG PO DAILY July 24, 2022 12:00am Start: 07-24-2022 Turmeric Activ e MG PO July 24, 2022 12:00am Start: 07-24-2022 Turmeric Activ e MG PO July 23, 2022 11:00pm Problems Active Problems Problem Classification Problem Date Documented Date Episodic/Chronic Abdominal pain (20 sources) Chronic pelvic pain of female; Translations: [Pelvic and perineal pain] 07-24-2022 Episodic Comment on above: nl pelvic us. suspec t endometriosis. pain resolved with depot lupron. plan laparoscopic BSO for definitive therapy Adjustment disorders (20 sources) Grief finding; Translations: [Adjustment disorder with depressed mood] 08-27-2023 Chronic Comment on above: support given, couns eling referral, pristiq ordered Diseases of mouth; excluding dental (3 sources) Disorder of lip; Translations: [Diseases of lips] Episodic Esophageal disorders (20 sources) Gastroesophageal reflux disease; Translations: [Esophageal reflux] Onset: 11-14-2022 01-13-2023 Chronic Genitourinary symptoms and ill-defined conditions (8 sources) Urinary incontinence; Translations: [Unspecified urinary incontinence] Onset: 02-14-2025 Chronic Comment on above: ua and culture sent, discussed attain and apex device. PFPT referral Menopausal disorders (20 sources) Menopausal syndrome; Translations: [Menopausal and female climacteric states] Onset: 11-11-2024 Chronic Comment on above: patch increased dosi ng, discussed possible progesterone if needed. Menstrual disorders (19 sources) Irregular periods; Translations: [Irregular menstruation, unspecified] 04-20-2020 Chronic Miscellaneous mental health disorders (20 sources) Binge eating disorder; Translations: [Binge eating disorder] 01-25-2023 Chronic Comment on above: counseling recommend ations, declines vyvanse, plan contrave. Mood disorders (20 sources) Depressive disorder; Translations: [Depressive disorder, not elsewhere classified] Onset: 11-14-2022 Chronic Comment on above: s/p effexor. student services counselor ing encouraged- referral to [facility]. started Pristiq. Mycoses (19 sources) Onychomycosis of toenails; Translations: [Tinea unguium] 07-05-2020 Episodic Nausea and vomiting (14 sources) Nausea; Translations: [Nausea] 09-07-2023 Episodic Osteoarthritis (20 sources) Osteoarthritis; Translations: [Unspecified osteoarthritis, unspecified site] 01-25-2023 Chronic Comment on above: weight loss recommen ded Other congenital anomalies (5 sources) Herniated urinary bladder 01-31-2025 Chronic Comment on above: fit with size four r ing with support will return for placement, recommend PFPT Other female genital disorders (19 sources) Mittelschmerz; Translations: [Mittelschmerz] 04-20-2020 Chronic Comment on above: reviewed options rec ommend continuous patch fu in 2-3 months Other lower respiratory disease (5 sources) Dyspnea; Translations: [Other respiratory abnormalities] 01-13-2023 Episodic Other lower respiratory disease (1 source) Chronic cough; Translations: [Chronic cough] 01-13-2023 Episodic Other lower respiratory disease (19 sources) Snoring; Translations: [Snoring] 01-25-2023 Episodic Comment on above: Impression:1.Primary snoring, with snore arousals, but no witnessed apneas and with excessive daytime sleepiness [place] score of 12, and woman with a BMI of 36.8. She is at moderate risk of obstructive sleep apnea. She has symptoms of leg edema2.Poor sleep hygiene, with pets, TV, no recent disruption in her sleep environment on a nightly basis, in addition she has a low number of hours of sleep and prefers 7 to 8 hours but only gets 5-6 because of her work schedule. We discussed this today and she received some basic counseling on sleep hygiene management. She is motivated to implement some of those changes by the time of her next visit. They include earlier bedtime, increase hours of sleep, get the pets and TV out of the bedroom, allow herself to settle back to sleep without getting on the cell phone or turning on lights. We discussed the stages of sleep and the importance of achieving deep and/or REM sleep. Caffeine 5 Pepsi's per day3.Rare sleep talking. No other Parasomnias.Plan:1. Home sleep study, unattended2.Sleep habit adjustment to improve sleep quality discussed with patient. Increase hours of sleep by adding earlier bedtime. 3.Weight loss4.Follow up in 1 month, after her home sleep study Other lower respiratory disease (20 sources) Snoring; Translations: [Other respiratory abnormalities] 01-23-2023 Episodic Other nervous system disorders (9 sources) Complex regional pain syndrome; Translations: [Reflex sympathetic dystrophy, unspecified] Onset: 11-14-2022 11-14-2022 Chronic Other nutritional; endocrine; and metabolic disorders (20 sources) Body mass index 30+ - obesity; Translations: [Body Mass Index 37.0-37.9, adult] Onset: 11-14-2022 Resolved: 01-13-2023 01-13-2023 Chronic Comment on above: SW- 227 at home, 10/11, 230 previously 01/25.Initial goal- s/p 5% with nutritional and medication intervention recommendations.initial obesity assessment lab panel ordered nl EKG Other nutritional; endocrine; and metabolic disorders (3 sources) Severe obesity; Translations: [Morbid (severe) obesity due to excess calories] Onset: 01-13-2023 01-13-2023 Chronic Other nutritional; endocrine; and metabolic disorders (19 sources) Obesity; Translations: [Other obesity] 01-25-2023 Chronic Comment on above: Nutrition plan: Misa [employer] nutritional plan. Medication plan: contrave bid control- hystBehavior intervention: handout given, recommend daily journal of food intake with electronic methodsExercise plan: increase daily steps and NEAT activity, discussed adding resistance training 2days/week Other nutritional; endocrine; and metabolic disorders (6 sources) Body mass index (BMI) 39.0-39.9, adult; Translations: [Body Mass Index 39.0-39.9, adult] 01-23-2023 Chronic Other nutritional; endocrine; and metabolic disorders (20 sources) Other obesity; Translations: [Obesity, unspecified] Onset: 11-11-2024 01-23-2023 Chronic Other nutritional; endocrine; and metabolic disorders (5 sources) Body mass index (BMI) 37.0-37.9, adult; Translations: [Body Mass Index 37.0-37.9, adult] 02-06-2023 Chronic Other nutritional; endocrine; and metabolic disorders (8 sources) Body mass index (BMI) 31.0-31.9, adult; Translations: [Body Mass Index 31.0-31.9, adult] 05-22-2023 Chronic Other nutritional; endocrine; and metabolic disorders (4 sources) Weight gain; Translations: [Abnormal weight gain] Episodic Other nutritional; endocrine; and metabolic disorders (9 sources) Overweight in adulthood with body mass index of 25 or more but less than 30; Translations: [Body mass index (BMI) 27.0-27.9, adult] 08-27-2023 Episodic Other nutritional; endocrine; and metabolic disorders (6 sources) Body mass index (BMI) 27.0-27.9, adult; Translations: [Body Mass Index 27.0-27.9, adult] 08-26-2023 Episodic Other skin disorders (9 sources) Keratosis; Translations: [Other seborrheic keratosis] 08-04-2023 Episodic Other skin disorders (9 sources) Skin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 medications, patient will follow up in approximately 2 weeks for reevaluation. Surgical Findings: 1 Complications Complications: No Admit VTE Documentation VTE Present on Admission: No 01/09/25 0828 Cosigner Signature (if applicable): CC: Dr. Philip Gerber MD; Dr. Tequila Renee MD Signed Normal [facility] Spine Lumbar (Routine)on Spine Lumbar (Routine) [facility] Imaging Services [address] [place] [address] [id number] Spine Lumbar (Routine) MR#: [id number] Acct: [id number] Name: BRISSA STEELE Rep #: [id number] : 1970 F 54 From: Donald Donato PCP: Dr. Tequila Renee MD Status: REG CLI Study: Spine Lumbar (Routine) Date of Exam: 01/06/25 Exam# [id number] Ordering Dr: Philip Gerber MD EXAM: MRI lumbar spine without IV contrast CLINICAL HISTORY: Pain, radiculopathy COMPARISON: None TECHNIQUE: Multisequence multiplanar MR images of the lumbar spine were obtained without the administration of intravenous contrast. Imaging sequences were performed to best displaced suspected pathology. FINDINGS: Vertebral body heights are within normal limits. Negative for fracture or marrow replacement. Alignment is intact. Conus medullaris is within normal limits and terminates at L1-L2. No paraspinal mass. L1-2: No focal disc abnormality, spinal stenosis or foraminal narrowing. L2-3: No focal disc abnormality, spinal stenosis or foraminal narrowing. L3-4: No focal disc abnormality, spinal stenosis or foraminal narrowing. L4-5: Posterior disc bulge. Moderate bilateral facet arthrosis/ligamentum flavum hypertrophy, greater on the right, including a right intraspinal synovial cyst measuring 4 x 9 x 10 mm narrowing the right lateral recess. Mild/moderate spinal stenosis. Mild bilateral foraminal narrowing. L5-S1: No focal disc abnormality. Mild/moderate bilateral facet arthrosis. No significant spinal stenosis. Mild bilateral foraminal narrowing. MRI/Spine Lumbar (Routine) IMPRESSION: 1. Acquired mild/moderate spinal and right lateral recess stenosis at L4-5 as above. 2. Acquired mild bilateral foraminal narrowing from L4 through S1. Reading Location: [facility] CC: Dr. Philip Gerber MD; Dr. 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 [address] [place] [address] / REHABILITATION SERVICES INITIAL EVALUATION MR#: [id number] Acct: [id number] Name: BRISSA STEELE Rep #: [id number] : 1970 54 From: Giovanni Echols PT. T, OCS Referring Dr.: Dr. Philip Gerber MD Status: REG RCR Insurance: [employer]/[facility] S[employer] PAY INSURANCE Patient's Visit Information Visit Information Visit Information: BRISSA STEELE is a 54 year old F referred to Physical Therapy by Dr. Philip Gerber MD with a diagnosis of RADICULOPATHY ,LUMBAR ,SPINAL STENOSIS. Date of Evaluation: 12/02/24 Physical Therapist: Jerry Montes PT, Cert T, OCS Visit Plan Frequency: 2x /Week Duration: 4 Weeks Plan: PT INTERVENTIONS ROBERTA PROGRESSION OF FORCES ,POSTURE/BODY MECHANICS TRAINING ,PROGRESS TO DLS ,POSTURAL EX'S AND MODALITIES Subjective Subjective: This 54 y/o female presents to physical therapy for with lumbar radiculopathy . Patient has symptoms for 3 years with lumbar radiculopathy bilateral legs left > right . Patient has seen Dr Gerber for pain management last 10/26 helped temporarily . Patient has had MRI 2022 Small L4-5 disc protrusion without nerve root impingement.No recent imaging. Patient over counter medication. Symmetrical glut lateral thigh to anterior .Aggregate factors standing ,walking bending and lifting ,sitting. Alleviating factors extension.Coughing/sneez ing -. Bowel/bladder-. PT in past did not really help. Massage. Patient symptoms don't affect sleeping. Denies paresthesia/tingling occasionally . Patient condition affects job demands and housework tasks. 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 Back: Pain Intensity (Out of 10): 3 Pain Intensity Range: 10 Left Lower Extremity: Pain Intensity (Out of 10): 2 Pain Intensity Range: 10 Comment: WORKINHG AND STANDING Objective Objective: POSTURE: mild forward posture GAIT: reciprocal pattern NEURO: denies paresthesia/tingling ,L3-4,L4-5,L5-S1 / PALPATION: unremarkable LUMBAR ROM: flexion min loss ,extension mod loss ,side glides min loss MMT: ( peak force) quads left 20.8 ,left hip flexion 22.9 ,left hams 4/5 ,ankle 4/5 ,right quads/hams/hip 4/5 Special Tests L/S Slump test left side: Negative L/S Slump test right side: Negative L/S Left Straight Leg Raise: Negative L/S Right Straight Leg Raise: Negative Lumbar Standing: Flexion - Mechanical Response: No effect Lumbar Standing: Flexion - Symptoms During Testing: Increases Lumbar Standing: Flexion - Symptoms After Testing: Worse Lumbar Standing: Extension - Mechanical Response: No effect Lumbar Standing: Extension - Symptoms During Testing: Increases Lumbar Standing: Extension - Symptoms After Testing: No worse Comments:: back Lumbar Standing: Right Side Glides - Mechanical Response: No effect Lumbar Standing: Right Side [place] - Symptoms During Testing: No effect Lumbar Standing: Right Side [place] - Symptoms After Testing: No effect Lumbar Standing: Left Side [place] - Mechanical Response: No effect Lumbar Standing: Left Side [place] - Symptoms During Testing: No effect Lumbar Standing: Left Side [place] - Symptoms After Testing: No effect Lumbar Lying: Flexion - Mechanical Response: No effect Lumbar Lying: Flexion - Symptoms During Testing: Increases Lumbar Lying: Flexion - Symptoms After Testing: Worse Comments:: left back Lumbar Lying: Extension - Mechanical Response: Increases motion Lumbar Lying: Extension - Symptoms During Testing: Centralizing Comments:: back with back and mechanical response with extension Balance/Special Test Scores Oswestry Low Back Score: 28 Goals Goal 1:: Patient to be I with HEP for back Goal Time Frame: 4-6 Weeks Goal 2:: Patient to improve lumbar ROM for function of recovery for job and putting shoes Goal Time Frame: 4-6 Weeks Goal 3:: Patient to improve peak force quads/hip left by 5-10# to improve function Goal Time Frame: 4-6 Weeks Goal 4:: Patient to improve back oswestry score by 5 points to improve QOL/function Goal Time Frame: 4-6 Weeks Goal 5:: Patient to demonstrate by 50% to improve function and job demands Goal Time Frame: 4-6 Weeks Rehabilitation Potential Physical Therapy Diagnosis: This patient lumbar radiculopathy with derangement with h/p protruding disc 2022 with pain with motion testing and positioning increases with flexion some better with extension thus benefit from skilled PT Rehabilitation Potential: Good Anticipated Interventions Patient/Client Instruction: Educate patient on: Condition and Plan of Care For the Purpose of:: To decrease pain, To increase ROM, To improve muscle performance and motor function, To improve ability to perform ADL's, To increase tolerance to activity/condition/posit ion, To improve a (more content not included)... Normal [facility] Hemoglobin A1con 11-13-2024 HbA1c (Bld) [Mass fraction] 5.6 % Normal 3.8-5.6 [facility] Comment on above: Result Comment: Norm al < 5.7 % Prediabetic 5.7 - 6.4 % Diabetic >or= 6.5 % Please note range changes. Performed By: #### L 501.9985, L506.1000, L100.0100, L501.9520, L500.4100, L500.4050 ####[facility] [address] [place], [address] 27-GE-Vgrjftp DOrdered By: David Mead on 11-11-2024 Vitamin D 25-Hydroxy 48.6 ng/mL [facility] Comment on above: Vitamin D 25(OH) Sta tus Range Deficiency <20 ng/mL (50nmol/L) Insufficiency 20 - 30 ng/mL (50 - 75 nmol/L) Sufficiency 30 - 100 ng/mL (75 - 250 nmol/L) Toxicity >100 ng/mL (>250 nmol/L) Absolute lymphocyte countOrd ered By: Navya Mead on 11-11-2024 Lymphocytes Auto (Unsp spec) [#/Vol] 1.16 10*3/uL 0.83-4.51 [facility] Absolute neutrophil countOrd ered By: Navya Mead on 11-11-2024 Neutrophils (Bld) [#/Vol] 4.2 10*3/uL 2.0-7.7 [facility] Albumin to globulin ratioOrd ered By: Navya Mead on 11-11-2024 Albumin/Globulin [Mass ratio] 1.2 {ratio} 0.9-2.4 [facility] Automated lymphocyte count a s percentage of total leukocytesOrdered By: Navya Mead on 11-11-2024 Lymphocytes/100 WBC Auto (Unsp spec) 19.6 % 19-41 [facility] Basophil percentageOrdered B y: aNvya Mead on 11-11-2024 Basophils/100 WBC (Bld) 0.7 % 0-1 [facility] Bilirubin, totalOrdered By: Navya Mead on 11-11-2024 Bilirubin [Mass/Vol] 0.30 mg/dL 0.20-1.00 [facility] Comment on above: For patients on eltr ombopag therapy, use of Dimension [place] TBIL is not recommended. Blood urea nitrogen (BUN)/cr eatinine ratioOrdered By: Navya Mead on 11-11-2024 Urea nitrogen/Creatinine [Mass ratio] 13.0 mg/mg 10-20 [facility] CBC W/Diff, Automatedon Absolute Lymph 1.16 X10 3/uL Normal 0.83-4.51 [facility] Comment on above: Performed By: #### L 501.9985, L506.1000, L100.0100, L501.9520, L500.4100, L500.4050 ####[facility] [address] [place], [address] Absolute Neut 4.2 X10 3/uL Normal 2.0-7.7 [facility] Comment on above: Performed By: #### L 501.9985, L506.1000, L100.0100, L501.9520, L500.4100, L500.4050 ####[facility] [address] [place], [address] Basophils/100 WBC (Bld) 0.7 % Normal 0-1 [facility] Comment on above: Performed By: #### L 501.9985, L506.1000, L100.0100, L501.9520, L500.4100, L500.4050 ####[facility] [address] [place], [address] Eosinophils/100 WBC (Bld) 2.4 % Normal 0-5 [facility] Comment on above: Performed By: #### L 501.9985, L506.1000, L100.0100, L501.9520, L500.4100, L500.4050 ####[facility] [address] [place], [address] Erythrocyte distribution width (RBC) [Ratio] 13.7 % Normal 11.6-14.6 [facility] Comment on above: Performed By: #### L 501.9985, L506.1000, L100.0100, L501.9520, L500.4100, L500.4050 ####[facility] [address] [place], [address] Hematocrit (Bld) [Volume fraction] 45.9 % Normal 37-47 [facility] Comment on above: Performed By: #### L 501.9985, L506.1000, L100.0100, L501.9520, L500.4100, L500.4050 ####[facility] [address] [place], [address] Hemoglobin (Bld) [Mass/Vol] 15.5 g/dL High 12.0-15.0 [facility] Comment on above: Performed By: #### L 501.9985, L506.1000, L100.0100, L501.9520, L500.4100, L500.4050 ####[facility] [address] [place], [address] IG% 1.000 High 0.0-0.9 [facility] Comment on above: Result Comment: IG% - Immature Granulocytes (promyelocytes, myelocytes and metamyelocytes) > 1% indicates that a LEFT SHIFT is Present. Performed By: #### L 501.9985, L506.1000, L100.0100, L501.9520, L500.4100, L500.4050 ####[facility] [address] [place], [address] Lymphocytes/100 WBC (Bld) 19.6 % Normal 19-41 [facility] Comment on above: Performed By: #### L 501.9985, L506.1000, L100.0100, L501.9520, L500.4100, L500.4050 ####[facility] [address] [place], [address] MCH (RBC) [Entitic mass] 30.5 pg Normal 27.0-32.0 [facility] Comment on above: Performed By: #### L 501.9985, L506.1000, L100.0100, L501.9520, L500.4100, L500.4050 ####[facility] [address] [facility] [place], [address] MCHC (RBC) [Mass/Vol] 33.8 g/dL Normal 32-36 [facility] Comment on above: Performed By: #### L 501.9985, L506.1000, L100.0100, L501.9520, L500.4100, L500.4050 ####[facility] [address] [place], [address] MCV (RBC) [Entitic vol] 90.4 fL Normal 81-99 [facility] Comment on above: Performed By: #### L 501.9985, L506.1000, L100.0100, L501.9520, L500.4100, L500.4050 ####[facility] [address] [place], [address] Monocytes/100 WBC (Bld) 5.9 % Normal 0-10 [facility] Comment on above: Performed By: #### L 501.9985, L506.1000, L100.0100, L501.9520, L500.4100, L500.4050 ####[facility] [address] [place], [address] Neutrophils/100 WBC (Bld) 70.4 % High 47-70 [facility] Comment on above: Performed By: #### L 501.9985, L506.1000, L100.0100, L501.9520, L500.4100, L500.4050 ####[facility] [address] [place], [address] Nucleated RBC (Bld) [#/Vol] 0 10*3/uL Normal 0-5 [facility] Comment on above: Performed By: #### L 501.9985, L506.1000, L100.0100, L501.9520, L500.4100, L500.4050 ####[facility] [address] [place], [address] Platelet mean volume (Bld) [Entitic vol] 11.5 fL Normal 6.2-12.0 [facility] Comment on above: Performed By: #### L 501.9985, L506.1000, L100.0100, L501.9520, L500.4100, L500.4050 ####[facility] [address] [place], [address] Platelets (Bld) [#/Vol] 176 10*3/uL Normal 150-450 [facility] Comment on above: Performed By: #### L 501.9985, L506.1000, L100.0100, L501.9520, L500.4100, L500.4050 ####[facility] [address] [place], [address] RBC (Bld) [#/Vol] 5.08 10*6/uL Normal 4.2-5.4 [facility] Comment on above: Performed By: #### L 501.9985, L506.1000, L100.0100, L501.9520, L500.4100, L500.4050 ####[facility] [address] [place], [address] RDW SD 45.3 fl High 35.1-43.9 [facility] Comment on above: Performed By: #### L 501.9985, L506.1000, L100.0100, L501.9520, L500.4100, L500.4050 ####[facility] [address] [place], [address] WBC (Bld) [#/Vol] 5.9 10*3/uL Normal 4.4-11.0 [facility] Comment on above: Performed By: #### L 501.9985, L506.1000, L100.0100, L501.9520, L500.4100, L500.4050 ####[facility] [address] [place], [address] Carbon dioxide measurementOr dered By: Navya Mead on 11-11-2024 CO2 [Moles/Vol] 21.0 mmol/L 21.0-32.0 [facility] Chloride measurementOrdered By: Navya Mead on 11-11-2024 Chloride [Moles/Vol] 108 mmol/L High 98-107 [facility] Comprehensive Metabolic Prof ilon 11-11-2024 Albumin [Mass/Vol] 4.2 g/dL Normal 3.2-5.0 [facility] Comment on above: Performed By: #### L 501.9985, L506.1000, L100.0100, L501.9520, L500.4100, L500.4050 ####[facility] [address] [place], [address] Albumin/Globulin [Mass ratio] 1.2 {ratio} Normal 0.9-2.4 [facility] Comment on above: Performed By: #### L 501.9985, L506.1000, L100.0100, L501.9520, L500.4100, L500.4050 ####[facility] [address] [place], [address] ALK P 91 U/L Normal 45-117 [facility] Comment on above: Performed By: #### L 501.9985, L506.1000, L100.0100, L501.9520, L500.4100, L500.4050 ####[facility] [address] [place], [address] ALT [Catalytic activity/Vol] 30 U/L Normal 13-56 [facility] Comment on above: Performed By: #### L 501.9985, L506.1000, L100.0100, L501.9520, L500.4100, L500.4050 ####[facility] [address] [place], [address] AST [Catalytic activity/Vol] 22 U/L Normal 15-37 [facility] Comment on above: Result Comment: Slig ht Hemolysis, Result may be falsely increased. Performed By: #### L 501.9985, L506.1000, L100.0100, L501.9520, L500.4100, L500.4050 ####[facility] [address] [place], [address] Bilirubin [Mass/Vol] 0.30 mg/dL Normal 0.20-1.00 [facility] Comment on above: Result Comment: For patients on eltrombopag therapy, use of Dimension [place] TBIL is not recommended. Performed By: #### L 501.9985, L506.1000, L100.0100, L501.9520, L500.4100, L500.4050 ####[facility] [address] [place], [address] BUN/CRE 13.0 RATIO Normal 10-20 [facility] Comment on above: Performed By: #### L 501.9985, L506.1000, L100.0100, L501.9520, L500.4100, L500.4050 ####[facility] [address] [place], [address] CA,Total 9.6 mg/dL Normal 8.5-10.1 [facility] Comment on above: Performed By: #### L 501.9985, L506.1000, L100.0100, L501.9520, L500.4100, L500.4050 ####[facility] [address] [place], [address] Chloride [Moles/Vol] 108 mmol/L High 98-107 [facility] Comment on above: Performed By: #### L 501.9985, L506.1000, L100.0100, L501.9520, L500.4100, L500.4050 ####[facility] [address] [place], [address] CO2 [Moles/Vol] 21.0 mmol/L Normal 21.0-32.0 [facility] Comment on above: Performed By: #### L 501.9985, L506.1000, L100.0100, L501.9520, L500.4100, L500.4050 ####[facility] [address] [place], [address] Creatinine [Mass/Vol] 0.84 mg/dL Normal 0.55-1.02 [facility] Comment on above: Result Comment: The validity of the calculated GFR GFRAA in patients over 70 years has not been determined. Clinical correlation is essential. Performed By: #### L 501.9985, L506.1000, L100.0100, L501.9520, L500.4100, L500.4050 ####[facility] [address] [place], [address] EST GFR - AA 91 mL/min Normal >60 [facility] Comment on above: Result Comment: Afri can Jamaican GFR Calc Performed By: #### L 501.9985, L506.1000, L100.0100, L501.9520, L500.4100, L500.4050 ####[facility] [address] [place], [address] GAP 12 Normal 5-15 [facility] Comment on above: Performed By: #### L 501.9985, L506.1000, L100.0100, L501.9520, L500.4100, L500.4050 ####[facility] [address] [place], [address] GFR/1.73 sq M.predicted among non-blacks MDRD (S/P/Bld) [Vol rate/Area] 75 mL/min/{1.73_m2} Normal >60 [facility] Comment on above: Result Comment: Non- GFR Calc Performed By: #### L 501.9985, L506.1000, L100.0100, L501.9520, L500.4100, L500.4050 ####[facility] [address] [place], [address] Globulin (S) [Mass/Vol] 3.6 g/dL Normal 2.2-4.2 [facility] Comment on above: Performed By: #### L 501.9985, L506.1000, L100.0100, L501.9520, L500.4100, L500.4050 ####[facility] [address] [place], [address] Glucose [Mass/Vol] 82 mg/dL Normal 74-106 [facility] Comment on above: Performed By: #### L 501.9985, L506.1000, L100.0100, L501.9520, L500.4100, L500.4050 ####[facility] [address] [place], [address] Potassium [Moles/Vol] 3.9 mmol/L Normal 3.5-5.1 [facility] Comment on above: Result Comment: Slig ht Hemolysis, Result may be falsely increased. Performed By: #### L 501.9985, L506.1000, L100.0100, L501.9520, L500.4100, L500.4050 ####[facility] [address] [place], [address] Sodium [Moles/Vol] 141 mmol/L Normal 136-145 [facility] Comment on above: Performed By: #### L 501.9985, L506.1000, L100.0100, L501.9520, L500.4100, L500.4050 ####[facility] [address] [place], [address] T PROT 7.8 g/dL Normal 6.4-8.2 [facility] Comment on above: Performed By: #### L 501.9985, L506.1000, L100.0100, L501.9520, L500.4100, L500.4050 ####[facility] [address] [place], [address] Urea nitrogen [Mass/Vol] 11 mg/dL Normal 7-18 [facility] Comment on above: Performed By: #### L 501.9985, L506.1000, L100.0100, L501.9520, L500.4100, L500.4050 ####[facility] [address] [place], [address] Eosinophil percentageOrdered By: Navya Mead on 11-11-2024 Eosinophils/100 WBC (Bld) 2.4 % 0-5 [facility] Erythrocyte distribution wid th (RBC) [Ratio]Ordered By: Navya Mead on 11-11-2024 Erythrocyte distribution width (RBC) [Entitic vol] 45.3 fL High 35.1-43.9 [facility] Erythrocyte distribution wid th ratioOrdered By: Navya Mead on 11-11-2024 Erythrocyte distribution width (RBC) [Ratio] 13.7 % 11.6-14.6 [facility] Erythrocyte distribution wid th standard deviationOrdered By: Navya Mead on 11-11-2024 Erythrocyte distribution width (RBC) [Ratio] 45.3 fl High 35.1-43.9 [facility] Estimated glomerular filtrat ion rate (GFR) AmericanOrdered By: Navya Mead on 11-11-2024 Estimated GFR (MDRD) Amer 91 mL/min >60 [facility] Comment on above: GFR Calc Glomerular filtration rate ( GFR) estimationOrdered By: Navya Mead on 11-11-2024 Estimated GFR (MDRD) Non-Af Amer 75 mL/min >60 [facility] Comment on above: Non- GFR Calc GFR/1.73 sq M.predicted among non-blacks MDRD (S/P/Bld) [Vol rate/Area] 75 mL/min/{1.73_m2} >60 [facility] Comment on above: Non- GFR Calc Glucose measurementOrdered B y: Navya Mead on 11-11-2024 Glucose [Mass/Vol] 82 mg/dL 74-106 [facility] Hematocrit Auto (Bld) [Volum e fraction]Ordered By: Navya Mead on 11-11-2024 Hematocrit (Bld) [Volume fraction] 45.9 % 37-47 [facility] Hemoglobin A1c percentageOrd ered By: Navya Mead on 11-11-2024 HbA1c (Bld) [Mass fraction] 5.6 % 3.8-5.6 [facility] Comment on above: Normal < 5.7 % Predi abetic 5.7 - 6.4 % Diabetic >or= 6.5 % Please note range changes. Hemoglobin measurementOrdere d By: Navya Mead on 11-11-2024 Hemoglobin (Bld) [Mass/Vol] 15.5 g/dL High 12.0-15.0 [facility] High density lipoprotein (HD L) measurementOrdered By: Navya Mead on 11-11-2024 Cholesterol in HDL [Mass/Vol] 64 mg/dL >40 [facility] Comment on above: The drugs N-Acetylcy steine and Metamizole may falsely depress this assay. Reference Range HDL <40 mg/dL Low HDL Cholesterol HDL >or= 60 mg/dL High HDL Cholesterol Immature granulocytes/100 WB C Auto (Bld)Ordered By: Navya Mead on 11-11-2024 Immature granulocytes/100 WBC (Bld) 1.000 % High 0.0-0.9 [facility] Comment on above: IG% - Immature Granu locytes (promyelocytes, myelocytes and metamyelocytes) > 1% indicates that a LEFT SHIFT is Present. Laboratory - Chemistry and C hemistry - challengeOrdered By: Navya Mead on 11-11-2024 AST [Catalytic activity/Vol] 22 U/L 15-37 [facility] Comment on above: Slight Hemolysis, Re sult may be falsely increased. Lipid Profileon 11-11-2024 Cholesterol [Mass/Vol] 164 mg/dL Normal 200 [facility] Comment on above: Result Comment: <200 mg/dL Desirable 200-240 mg/dL Borderline >240 mg/dL High Risk Performed By: #### L 501.9985, L506.1000, L100.0100, L501.9520, L500.4100, L500.4050 ####[facility] [address] [place], [address] Cholesterol in HDL [Mass/Vol] 64 mg/dL Normal [facility] Comment on above: Result Comment: The drugs N-Acetylcysteine and Metamizole may falsely depress this assay. Reference Range HDL <40 mg/dL Low HDL Cholesterol HDL >or= 60 mg/dL High HDL Cholesterol Performed By: #### L 501.9985, L506.1000, L100.0100, L501.9520, L500.4100, L500.4050 ####[facility] [address] [place], [address] Cholesterol in LDL [Mass/Vol] 87 mg/dL Normal 0-130 [facility] Comment on above: Performed By: #### L 501.9985, L506.1000, L100.0100, L501.9520, L500.4100, L500.4050 ####[facility] [address] [place], [address] Cholesterol in VLDL [Mass/Vol] 13 mg/dL Normal 5-40 [facility] Comment on above: Performed By: #### L 501.9985, L506.1000, L100.0100, L501.9520, L500.4100, L500.4050 ####[facility] [address] [place], [address] Triglyceride [Mass/Vol] 63 mg/dL Normal [facility] Comment on above: Result Comment: The drugs N-Acetylcysteine and Metamizole may falsely depress this assay. Serum Triglycerides Reference Interval Normal <150 mg/dL Borderline high 150 - 199 mg/dL High 200 - 499 mg/dL Very High > or = 500 mg/dL Performed By: #### L 501.9985, L506.1000, L100.0100, L501.9520, L500.4100, L500.4050 ####[facility] [address] [place], [address] Low density lipoprotein (LDL ) cholesterol measurementOrdered By: Navya Mead on 11-11-2024 Cholesterol in LDL [Mass/Vol] 87 mg/dL 0-130 [facility] Lymphocytes Auto (Unsp spec) [#/Vol]Ordered By: Navya Mead on 11-11-2024 Lymphocytes (Bld) [#/Vol] 1.16 10*3/uL 0.83-4.51 [facility] Lymphocytes/100 WBC Auto (Un sp spec)Ordered By: Navya Mead on 11-11-2024 Lymphocytes/100 WBC (Bld) 19.6 % 19-41 [facility] MCV (mean corpuscular volume ) determinationOrdered By: Navya Mead on 11-11-2024 MCV (RBC) [Entitic vol] 90.4 fL 81-99 [facility] Mean corpuscular hemoglobin (MCH) determinationOrdered By: Navya Mead on 11-11-2024 MCH (RBC) [Entitic mass] 30.5 pg 27.0-32.0 [facility] Mean corpuscular hemoglobin concentration (MCHC) determinationOrdered By: Navya Mead on 11-11-2024 MCHC (RBC) [Mass/Vol] 33.8 g/dL 32-36 [facility] Mean platelet volume determi nationOrdered By: Navya Mead on 11-11-2024 Platelet mean volume (Bld) [Entitic vol] 11.5 fL 6.2-12.0 [facility] Monocyte percentageOrdered B y: Navya Mead on 11-11-2024 Monocytes/100 WBC (Bld) 5.9 % 0-10 [facility] Neutrophil percentageOrdered By: Navya Mead on 11-11-2024 Neutrophils/100 WBC (Bld) 70.4 % High 47-70 [facility] Nucleated red blood cell per centageOrdered By: Navya Mead on 11-11-2024 Nucleated RBC/100 WBC (Bld) [Ratio] 0 % 0-5 [facility] Captain Waiter/Waitress Office Visit Reporton 11-11-2024 Captain Waiter/Waitress Office Visit Report [facility]'[address], [address] [place] [address] OFFICE VISIT Date of Service: 11/11/24 MR#: [id number] Acct: [id number] Name: BRISSA STEELE Rep #: [id number] : 1970 Provider: Dr. 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 Is patient in pain?: No Feel stressed/tense/nervous/a nxious/difficulty sleeping: to some extent (getting better) Allergies morphine (From Duramorph (PF)) Adverse Reaction (Verified 11/11/24 09:36) Vomiting Medications ???Medication ???Instructions ???Recorded ???Confirmed ???Type naproxen 250 mg tablet 250 - 500 mg (1 - 2 x 250 mg) PO 0 11/06/20 11/11/24 Rx Q8H PRN PRN MILD PAIN #30 tabs multivitamin 1 cap PO DAILY 01/30/23 11/11/24 H istory estradiol 14 mcg/24 hr weekly 1 patch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 % 3.8-5.6 [facility] Comment on above: Normal < 5.7 % Predi abetic 5.7 - 6.4 % Diabetic >or= 6.5 % Please note range changes. Basophil percentageOrdered B y: Dr. Renee on 12-04-2022 Bilirubin [Mass/Vol] 0.30 mg/dL 0.20-1.00 [facility] Comment on above: For patients on eltr ombopag therapy, use of Dimension [place] TBIL is not recommended. Chloride [Moles/Vol] 108 mmol/L 98-107 [facility] Cholesterol [Mass/Vol] 155 mg/dL <200 [facility] Comment on above: <200 mg/dL Desirable 200-240 mg/dL Borderline >240 mg/dL High Risk Glucose [Mass/Vol] 106 mg/dL 74-106 [facility] Comment on above: Fasting Glucose resu lt from 100 to 125 mg/dL suggests IMPAIRED HOMEOSTASIS per A.D.A. criteria. Potassium [Moles/Vol] 3.8 mmol/L 3.5-5.1 [facility] Protein [Mass/Vol] 7.0 g/dL 6.4-8.2 [facility] Sodium [Moles/Vol] 139 mmol/L 136-145 [facility] Triglyceride [Mass/Vol] 105 mg/dL <199 [facility] Comment on above: The drugs N-Acetylcy steine and Metamizole may falsely depress this assay.Serum Triglycerides Reference Interval Normal <150 mg/dL Borderline high 150 - 199 mg/dL High 200 - 499 mg/dL Very High > or = 500 mg/dL WBC (Bld) [#/Vol] 6.1 10*3/uL 4.4-11.0 [facility] Blood erythrocytes count (nu mber/volume)Ordered By: Dr. Renee on 12-04-2022 RBC (Bld) [#/Vol] 4.46 10*6/uL 4.2-5.4 [facility] Blood hemoglobin measurement (mass/volume)Ordered By: Dr. Renee on 12-04-2022 Hemoglobin (Bld) [Mass/Vol] 13.5 g/dL 12.0-15.0 [facility] Blood platelet mean volumeOr dered By: Dr. Renee on 12-04-2022 Platelet mean volume (Bld) [Entitic vol] 11.0 fL 6.2-12.0 [facility] Determination of erythrocyte mean corpuscular volume (MCV)Ordered By: Dr. Renee on 12-04-2022 MCV (RBC) [Entitic vol] 89.0 fL 81-99 [facility] Hematocrit Auto (Bld) [Volum e fraction]Ordered By: Dr. Renee on 03-02-2023 Hematocrit (Bld) [Volume fraction] 39.7 % 37-47 [facility] - Chemistry and C hemistry - challengeOrdered By: Dr. Renee on 12-04-2022 ALP [Catalytic activity/Vol] 78 U/L 45-117 [facility] ALT [Catalytic activity/Vol] 23 U/L 13-56 [facility] CO2 [Moles/Vol] 25.0 mmol/L 21.0-32.0 [facility] Cobalamin (Vitamin B12) [Mass/Vol] 743 pg/mL 211-911 [facility] Globulin (S) [Mass/Vol] 3.2 g/dL 2.2-4.2 [facility] Urea nitrogen/Creatinine [Mass ratio] 20.3 mg/mg 10-20 [facility] - Hematology and Cell countsOrdered By: Dr. Renee on 12-04-2022 Erythrocyte distribution width (RBC) [Entitic vol] 42.5 fL 35.1-43.9 [facility] Erythrocyte distribution width (RBC) [Ratio] 12.9 % 11.6-14.6 [facility] MCH (RBC) [Entitic mass] 30.3 pg 27.0-32.0 [facility] MCHC Auto (RBC) [Mass/Vol]Or dered By: Dr. Renee on 12-04-2022 MCHC (RBC) [Mass/Vol] 34.0 g/dL 32-36 [facility] No Panel InformationOrdered By: Dr. Renee on 12-04-2022 Estimated GFR (MDRD) Amer 116 mL/min >60 [facility] Comment on above: GFR Calc Estimated GFR (MDRD) Non-Af Amer 96 mL/min >60 [facility] Comment on above: Non- GFR Calc Thyroid Stimulating Hormone (TSH) 2.26 uIU/mL 0.358-3.74 [facility] Platelets bldOrdered By: Dr. Renee on 12-04-2022 Platelets (Bld) [#/Vol] 223 10*3/uL 150-450 [facility] Serum or plasma albumin elizabet urement (mass/volume)Ordered By: Dr. Renee on 12-04-2022 Albumin [Mass/Vol] 3.8 g/dL 3.2-5.0 [facility] Serum or plasma albumin/glob ulin mass ratioOrdered By: Dr. Renee on 12-04-2022 Albumin/Globulin [Mass ratio] 1.2 {ratio} 0.9-2.4 [facility] Serum or plasma calcium elizabet urement (mass/volume)Ordered By: Dr. Renee on 12-04-2022 Calcium [Mass/Vol] 9.0 mg/dL 8.5-10.1 [facility] Serum or plasma cholesterol in HDL measurement (mass/volume)Ordered By: Dr. Renee on 12-04-2022 Cholesterol in HDL [Mass/Vol] 47 mg/dL >40 [facility] Comment on above: The drugs N-Acetylcy steine and Metamizole may falsely depress this assay. Reference Range HDL <40 mg/dL Low HDL Cholesterol HDL >or= 60 mg/dL High HDL Cholesterol Serum or plasma cholesterol in VLDL measurement (mass/volume)Ordered By: Dr. Renee on 12-04-2022 Cholesterol in VLDL [Mass/Vol] 21 mg/dL 5-40 [facility] Serum or plasma creatinine m easurement (mass/volume)Ordered By: Dr. Renee on 12-04-2022 Creatinine [Mass/Vol] 0.69 mg/dL 0.55-1.02 [facility] Comment on above: The validity of the calculated GFR & GFRAA in patients over 70 years has not been determined. Clinical correlation is essential. Serum or plasma low density lipoprotein (LDL) cholesterol measurement (mass/volume)Ordered By: Dr. Renee on 12-04-2022 Cholesterol in LDL [Mass/Vol] 87 mg/dL 0-130 [facility] Serum or plasma urea nitroge n measurement (mass/volume)Ordered By: Dr. Renee on 12-04-2022 Urea nitrogen [Mass/Vol] 14 mg/dL 7-18 [facility] Thin prep Papanicolaou smear with manual screeningOrdered By: Dr. Renee on 12-04-2022 Thin prep Papanicolaou smear with manual screening 17 U/L 15-37 [facility] Thin prep Papanicolaou smear with manual screening 6 5-15 [facility] Office Visit (Family Medicin e)on 11-25-2022 Follow-up visit Diagnoses/Problems BMI 39.0-39.9,adult (V85.39) (Z68.39) History of depression (V11.8) (Z86.59) Dyspnea (786.09) (R06.00) GERD (gastroesophageal reflux disease) (530.81) (K21.9) Other screening mammogram (V76.12) (Z12.31) Weight gain (783.1) (R63.5) Orders Dyspnea Complete PFT w/o ABG; Status:Hold For - Scheduling; Requested for:[id number]; Dyspnea, PMH: History of depression Xray Chest 2 View PA + Lateral; Status:Hold For - Scheduling; Requested for:[id number]; Radiologist to Determine Optimal Study : Y What are the patient's signs and symptoms? : LIZA PMH: History of depression Complete Blood Count; Status:Active; Requested for:[id number]; Comprehensive Metabolic Panel; Status:Active; Requested for:[id number]; Electrocardiogram EKG; Status:Hold For - Scheduling; Requested for:[id number]; Lipid Panel; Status:Active; Requested for:[id number]; TSH WITH REFLEX TO FREE T4 IF ABNORMAL; Status:Active; Requested for:97Led8489; Vit B12 Bind.Capacity; Status:Active; Requested for:[id number]; Patient Discussion/Summary Discussed getting started on workup, plan followup 2 mos, consider additional testing depending ont hese results, ei sleep study, echo, etc. Call concerns. 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, [employer] cough, pitting edema, BLE History of Present Illness Pt presents for periodic surveillance of chronic medical problems . BMI 39, weight is up, discouraged, states does like sweets, lots of stress at work Depression, stopped effexor and feels better off of it than she did taking it GERD< on meds, no current symptoms DUe for mammogram, aware she is due for colonoscopy as well, figuring out where she wants to go Has had some dyspnea with exertion, wheezing, states worsened as weight has gone up, worse when she lies flat No chest pain, has had some swelling in ankles. Review of Systems Constitutional: as noted in HPI. Cardiovascular: no chest pain. Respiratory: shortness of breath during exertion. Gastrointestinal: as noted in HPI. Musculoskeletal: no history of falls. Psychiatric: no anxiety and no depression. 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) Resolved Date: 05 Nov 2020 Surgical History History of section History of Foot surgery History of Oophorectomy History of Ostectomy of calcaneus for spur Family History Family history of cardiac disorder (V17.49) (Z82.49) Family history of hypertension (V17.49) (Z82.49) Family history of malignant neoplasm of breast (V16.3) (Z80.3) Family history of malignant neoplasm of colon (V16.0) (Z80.0) Family history of malignant neoplasm of esophagus (V16.0) (Z80.0) Family history of type 1 diabetes mellitus (V18.0) (Z83.3) Social History Caffeine use (V49.89) (Z78.9) Does not have living will Never a smoker No alcohol use Allergies Duramorph SOLN Recorded By: Rosalie Rey; 11/05/2020 8:28:48 AM Current Meds Medication NameInstructionReason Lansoprazole 30 MG Oral Capsule Delayed ReleaseTAKE 2 CAPSULE DailyGERD (gastroesophageal reflux disease) Venlafaxine HCl ER 75 MG Oral Capsule Extended Release 24 HourTAKE 2 CAPSULE DailyPMH: History of depression Estradiol 0.075 MG/24HR Transdermal Patch Weekly Lyrica 200 MG Oral CapsuleTAKE 1 CAPSULE Daily Vitals Vital Signs Recorded: [id number] 08:19AM Heart Rate92 Sipmpfqk945, LUE, Sitting Bdnwsxmoe73, LUE, Sitting Height5 ft 3.5 in Ukmrtn156 lb 5 oz BMI Elffivbbxi67.81 kg/m2 BSA Calculated2.06 Tobacco Useb) No Falls Screening (Age 18+)a) No falls within the last year O2 Sotrbmpvtd53 Physical Exam Constitutional: Alert and in no acute distress. Well developed, well nourished. Head and Face: Head and face: Normal. Cardiovascular: Heart rate and rhythm were normal, normal S1 and S2, no gallops, no murmurs and no pericardial rub. Pulmonary: No respiratory distress. Clear bilateral breath sounds. Musculoskeletal: Gait and station: Normal. Psychiatric: Judgment and insight: Intact. Mood and affect: Normal. 'Scores and Scales' Signatures Electronically signed by : Tequila Renee MD; Nov 25 2022 8:50AM EST (Author) Normal [employer] Tobacco Screening.on 023 Fall risk assessment a) No falls within the last year [facility] Phone: Tobacco use status CPHS b) No M [employer] Phone: Office Visit (Primary Care F orms)on 01-08-2022 Follow-up visit Diagnosis/Problems Assessed Other screening mammogram (V76.12) (Z12.31) Orders Depression Renew: Venlafaxine HCl ER 75 MG Oral Capsule Extended Release 24 Hour; TAKE 2 CAPSULE Daily Rx By: Tequila Renee; Dispense: 0 Days ; #:180 Capsule; Refill: 1;For: Depression; ZEYAD = N; Sent To: [facility]; Last Updated By: Jade Garcia; 01/08/2022 9:05:09 AM GERD (gastroesophageal reflux disease) Changed: From Lansoprazole 30 MG Oral Capsule Delayed Release Take 1 capsule twice daily To Lansoprazole 30 MG Oral Capsule Delayed Release (Prevacid) TAKE 2 CAPSULE Daily Rx By: Tequila Renee; Dispense: 90 Days ; #:180 Capsule; Refill: 1;For: GERD (gastroesophageal reflux disease); ZEYAD = N; Sent To: [facility]; Last Updated By: Jade Garcia; 01/08/2022 9:05:09 AM Other screening mammogram Mamm - Screening Mammogram w/ Tomosynthesis; Status:Hold For - Scheduling; Requested for:08Jan2022; Perform:[facility]; Due:[id number];Ordered; For:Other screening mammogram; Ordered By:Tequila Renee; Radiologist to Determine Optimal Study : Y What are the patient's signs and symptoms ? : Annual Screening Mammogram Patient Discussion/Summary Followup annually, call concerns. Chief Complaint medication refills. No concerns History of Present IllnessPT presents for periodic surveillance of chronic medical problems/wellness visit. Due for mammogram, agrees to same. Discussed colon cancer screening guidelines, no family history, most insurance still not covering screening until age 50 despite change in guidelines to age 45 . 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 Depression, stable on current medication, wishes to continue, discussed not stopping abruptly. RSD< ,s/p parotid malignancy, sees specialist for management of same Denies problems or concerns. Has had three covid vaccines. 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) Resolved Date: 05 Nov 2020 Surgical History Problems History of section History of Foot surgery History of Oophorectomy History of Ostectomy of calcaneus for spur Family History Mother Family history of cardiac disorder (V17.49) (Z82.49) Family history of hypertension (V17.49) (Z82.49) Grandparent Family history of malignant neoplasm of breast (V16.3) (Z80.3) Family history of malignant neoplasm of colon (V16.0) (Z80.0) Family history of malignant neoplasm of esophagus (V16.0) (Z80.0) Family history of type 1 diabetes mellitus (V18.0) (Z83.3) Social History Problems Caffeine use (V49.89) (Z78.9) Does not have living will Never a smoker No alcohol use Current Meds Medication NameInstruction Estradiol 0.075 MG/24HR Transdermal Patch Weekly Lansoprazole 30 MG Oral Capsule Delayed ReleaseTake 1 capsule twice daily Lyrica 200 MG Oral CapsuleTAKE 1 CAPSULE Daily Venlafaxine HCl ER 75 MG Oral Capsule Extended Release 24 HourTAKE 2 CAPSULE Daily Allergies Medication Mailekimmie PISANOGena Recorded By: Rosalie Rey; 11/05/2020 8:28:48 AM Vitals Vital Signs Recorded: 08Jan2022 09:03AM Heart Rate84 Spsuylau871 Kiqaddjfq98 Height5 ft 3.5 in Yhkntj373 lb BMI Wnivymofvg59.36 kg/m2 BSA Calculated2.03 Tobacco Useb) No Physical Exam Constitutional - Well developed, well nourished, well hydrated and no acute distress. Vital signs reviewed. Head and Face - Normocephalic, atraumatic. Ears, Nose, Mouth, and Throat - Hearing: Normal. Pulmonary - normal respiratory effort. Lungs are clear without rales, rhonchi, or wheezing. Cardiovascular - Regular rate and rhythm. No significant murmur. Musculoskeletal - Gait and station: Normal. Psychiatric - Mood and affect: Normal. Judgment and insight: Intact. Signatures Electronically signed by : Tequila Renee MD; Jan 08 2022 9:39AM EST (Author) Normal [employer] Tobacco Screening.on 022 Tobacco use status CPHS b) No M [facility] 205 DO Work Phone: Vital Signs Date Time Vital Sign Value Performing Clinician Facility 02-08-2025 13:06-0400 Body height 162.[address] Tequila Renee MD Work Phone: [facility] 02-08-2025 12:55-0400 Diastolic blood pressure 58 mm[Hg] Dr. Tequila Renee MD Work Phone: [facility] 02-08-2025 12:55-0400 Systolic blood pressure 97 mm[Hg] Dr. Tequila Renee MD Work Phone: [facility] 02-03-2025 08:23-0400 Body height 160 cm Tequila Renee MD Work Phone: [facility] 02-03-2025 08:23-0400 Body mass index (BMI) [Ratio] 37.55 kg/m2 Tequila Renee MD Work Phone: [facility] 02-03-2025 08:23-0400 Body weight 96.16 kg Tequila Renee MD Work Phone: [facility] 02-03-2025 08:23-0400 Diastolic blood pressure 78 mm[Hg] Tequila Renee MD Work Phone: [facility] 02-03-2025 08:23-0400 Heart rate 76 /min Tequila Renee MD Work Phone: [facility] 02-03-2025 08:23-0400 Systolic blood pressure 130 mm[Hg] Tequila Renee MD Work Phone: [facility] 01-09-2025 08:35-0400 Body temperature 97.9 [degF] Dr. Tequila Renee MD Work Phone: [facility] 01-09-2025 08:35-0400 Diastolic blood pressure 59 mm[Hg] Dr. Tequila Renee MD Work Phone: [facility] 01-09-2025 08:35-0400 Heart rate 75 /min Dr. Tequila Renee MD Work Phone: [facility] 01-09-2025 08:35-0400 Respiratory rate 16 /min Dr. Tequila Renee MD Work Phone: [facility] 01-09-2025 08:35-0400 SaO2% (BldA) [Mass fraction] 95 % Dr. Tequila Renee MD Work Phone: [facility] 01-09-2025 08:35-0400 Systolic blood pressure 95 mm[Hg] Dr. Tequila Renee MD Work Phone: [facility] 01-09-2025 06:49-0400 Body height 162.[address] Tequila Renee MD Work Phone: [facility] 01-09-2025 06:49-0400 Body mass index (BMI) [Ratio] 36.3 kg/m2 Dr. Tequila Renee MD Work Phone: [facility] 01-09-2025 06:49-0400 Body weight [address] Tequila Renee MD Work Phone: 2(952)577-467661 [place] [address] 11-11-2024 09:32-0500 Body mass index (BMI) [Ratio] 36.1 kg/m2 Dr. Tequila Renee MD Work Phone: 7(910)710-433261 [place] [address] 11-11-2024 09:32-0500 Body weight 95.[address] Tequila Renee MD Work Phone: 5(792)515-428761 [place] [address] 11-11-2024 09:32-0500 Diastolic blood pressure 70 mm[Hg] Dr. Tequila Renee MD Work Phone: 4(967)812-959976 [place] [address] 11-11-2024 09:32-0500 Heart rate 88 /min Dr. Tequila Renee MD Work Phone: 9(494)885-336576 [place] [address] 11-11-2024 09:32-0500 Systolic blood pressure 104 mm[Hg] Dr. Tequila Renee MD Work Phone: 9(735)450-543376 [place] [address] 10-24-2024 10:35-0500 Body temperature 98.9 [degF] Dr. Tequila Renee MD Work Phone: 2(045)388-774776 [place] [address] 10-24-2024 10:35-0500 Diastolic blood pressure 71 mm[Hg] Dr. Tequila Renee MD Work Phone: 0(218)775-999676 [place] [address] 10-24-2024 10:35-0500 Heart rate 69 /min Dr. Tequila Renee MD Work Phone: 8(316)378-537476 [place] [address] 10-24-2024 10:35-0500 Respiratory rate 16 /min Dr. Tequila Renee MD Work Phone: 1(608)659-031161 [place] [address] 10-24-2024 10:35-0500 SaO2% (BldA) [Mass fraction] 95 % Dr. Tequila Renee MD Work Phone: 2(520)207-749261 [place] [address] 10-24-2024 10:35-0500 Systolic blood pressure 103 mm[Hg] Dr. Tequila Renee MD Work Phone: 7(897)521-020676 [place] [address] 10-24-2024 09:17-0500 Body mass index (BMI) [Ratio] 38.4 kg/m2 Dr. Tequila Renee MD Work Phone: [facility] 10-24-2024 09:17-0500 Body weight 101.[address] Tequila Renee MD Work Phone: [facility] 12-07-2023 10:53-0500 Body temperature 97.7 [degF] Dr. Tequila Renee Work Phone: [facility] 12-07-2023 10:53-0500 Diastolic blood pressure 74 mm[Hg] Dr. Tequila Renee Work Phone: 7(477)779-587292 [place] [address] 12-07-2023 10:53-0500 Heart rate 72 /min Dr. Tequila Renee Work Phone: [facility] 12-07-2023 10:53-0500 Respiratory rate 16 /min Dr. Tequila Renee Work Phone: [facility] 12-07-2023 10:53-0500 SaO2% (BldA) [Mass fraction] 98 % Dr. Tequila Renee Work Phone: [facility] 12-07-2023 10:53-0500 Systolic blood pressure 107 mm[Hg] Dr. Tequila Renee Work Phone: [facility] 12-07-2023 09:26-0500 Body height 162.[address] Tequila Renee Work Phone: [facility] 12-07-2023 09:26-0500 Body mass index (BMI) [Ratio] 29.7 kg/m2 Dr. Tequila Renee Work Phone: [facility] 12-07-2023 09:26-0500 Body weight 78.[address] Tequila Renee Work Phone: [facility] 11-16-2023 09:52-0500 Body mass index (BMI) [Ratio] 29 kg/m2 Dr. Tequila Renee Work Phone: [facility] 11-16-2023 09:52-0500 Body weight 76.[address] Tequila Renee Work Phone: [facility] 11-16-2023 09:52-0500 Diastolic blood pressure 61 mm[Hg] Dr. Tequila Renee Work Phone: [facility] 11-16-2023 09:52-0500 Heart rate 73 /min Dr. Tequila Renee Work Phone: [facility] 11-16-2023 09:52-0500 Systolic blood pressure 97 mm[Hg] Dr. Tequila Renee Work Phone: [facility] 09-16-2023 07:15-0500 Body temperature 97.5 [degF] Dr. Tequila Renee Work Phone: [facility] 09-16-2023 07:15-0500 Diastolic blood pressure 60 mm[Hg] Dr. Tequila Renee Work Phone: [facility] 09-16-2023 07:15-0500 Heart rate 72 /min Dr. Tequila Renee Work Phone: [facility] 09-16-2023 07:15-0500 Respiratory rate 16 /min Dr. Tequila Renee Work Phone: [facility] 09-16-2023 07:15-0500 SaO2% (BldA) [Mass fraction] 100 % Dr. Tequila Renee Work Phone: [facility] 09-16-2023 07:15-0500 Systolic blood pressure 91 mm[Hg] Dr. Tequila Renee Work Phone: [facility] 09-16-2023 06:00-0500 Body height 162.[address] Tequila Renee Work Phone: [facility] 09-16-2023 06:00-0500 Body mass index (BMI) [Ratio] 27.3 kg/m2 Dr. Tequila Renee Work Phone: [facility] 09-16-2023 06:00-0500 Body weight 72.[address] Tequila Renee Work Phone: [facility] 09-07-2023 14:02-0500 Body height 162.[address] Tequila Renee Work Phone: [facility] 09-07-2023 14:02-0500 Body mass index (BMI) [Ratio] 27.8 kg/m2 Dr. Tequila Renee Work Phone: [facility] 09-07-2023 14:02-0500 Body temperature 97.2 [degF] Dr. Tequila Renee Work Phone: [facility] 09-07-2023 14:02-0500 Body weight 73.[address] Tequila Renee Work Phone: [facility] 09-07-2023 14:02-0500 Diastolic blood pressure 79 mm[Hg] Dr. Tequila Renee Work Phone: [facility] 09-07-2023 14:02-0500 Heart rate 72 /min Dr. Tequila Renee Work Phone: [facility] 09-07-2023 14:02-0500 Respiratory rate 17 /min Dr. Tequila Renee Work Phone: [facility] 09-07-2023 14:02-0500 SaO2% (BldA) [Mass fraction] 99 % Dr. Tequila Renee Work Phone: [facility] 09-07-2023 14:02-0500 Systolic blood pressure 122 mm[Hg] Dr. Tequila Renee Work Phone: [facility] 08-26-2023 11:40-0500 Body mass index (BMI) [Ratio] 27.6 kg/m2 Dr. Tequila Renee Work Phone: [facility] 08-26-2023 11:40-0500 Body weight 73.[address] Tequila Renee Work Phone: [facility] 08-26-2023 11:40-0500 Diastolic blood pressure 76 mm[Hg] Dr. Tequila Renee Work Phone: [facility] 08-26-2023 11:40-0500 Heart rate 74 /min Dr. Tequila Renee Work Phone: [facility] 08-26-2023 11:40-0500 Systolic blood pressure 109 mm[Hg] Dr. Tequila Renee Work Phone: [facility] 05-22-2023 08:31-0400 Body mass index (BMI) [Ratio] 31.1 kg/m2 Dr. Tequila Renee Work Phone: [facility] 05-22-2023 08:31-0400 Body weight 82.[address] Tequila Renee Work Phone: [facility] 05-22-2023 08:31-0400 Diastolic blood pressure 58 mm[Hg] Dr. Tequila Renee Work Phone: [facility] 05-22-2023 08:31-0400 Heart rate 78 /min Dr. Tequila Renee Work Phone: [facility] 05-22-2023 08:31-0400 Systolic blood pressure 121 mm[Hg] Dr. Tequila Renee Work Phone: [facility] 02-11-2023 06:57-0400 Body height 162.[address] Tequila Renee Work Phone: [facility] 02-11-2023 06:57-0400 Body mass index (BMI) [Ratio] 36.8 kg/m2 Dr. Teqiula Renee Work Phone: [facility] 02-11-2023 06:57-0400 Body temperature 96.3 [degF] Dr. Tequila Renee Work Phone: [facility] 02-11-2023 06:57-0400 Body weight 97.[address] Tequila Renee Work Phone: [facility] 02-11-2023 06:57-0400 Diastolic blood pressure 72 mm[Hg] Dr. Tequila Renee Work Phone: [facility] 02-11-2023 06:57-0400 Heart rate 78 /min Dr. Tequila Renee Work Phone: 0(293)883-337361 [place] [address] 02-11-2023 06:57-0400 Respiratory rate 18 /min Dr. Tequila Renee Work Phone: 9(218)120-591761 [place] [address] 02-11-2023 06:57-0400 SaO2% (BldA) [Mass fraction] 98 % Dr. Tequila Renee Work Phone: 8(107)340-991661 [place] [address] 02-11-2023 06:57-0400 Systolic blood pressure 104 mm[Hg] Dr. Tequila Renee Work Phone: 1(437)037-787761 [place] [address] 02-06-2023 14:14-0400 Body height 162.[address] Tequila Renee Work Phone: 2(881)437-549876 [place] [address] 02-06-2023 14:14-0400 Body mass index (BMI) [Ratio] 37.8 kg/m2 Dr. Tequila Renee Work Phone: 7(622)042-306461 [place] [address] 02-06-2023 14:14-0400 Body temperature 96.8 [degF] Dr. Tequila Renee Work Phone: 1(464)994-595161 [place] [address] 02-06-2023 14:14-0400 Body weight 99.[address] Tequila Renee Work Phone: 6(360)831-596161 [place] [address] 02-06-2023 14:14-0400 Diastolic blood pressure 81 mm[Hg] Dr. Tequila Renee Work Phone: 7(585)041-738861 [place] [address] 02-06-2023 14:14-0400 Heart rate 70 /min Dr. Tequila Renee Work Phone: 5(239)900-262461 [place] [address] 02-06-2023 14:14-0400 Respiratory rate 18 /min Dr. Tequila Renee Work Phone: 5(017)893-084561 [place] [address] 02-06-2023 14:14-0400 SaO2% (BldA) [Mass fraction] 97 % Dr. Tequila Renee Work Phone: 2(413)677-743661 [place] [address] 02-06-2023 14:14-0400 Systolic blood pressure 116 mm[Hg] Dr. Tequila Renee Work Phone: 7(971)916-796161 [place] [address] 02-06-2023 08:50-0400 Body mass index (BMI) [Ratio] 37.6 kg/m2 Dr. Tequila Renee Work Phone: [facility] 02-06-2023 08:50-0400 Body weight 99.[address] Tequila Renee Work Phone: [facility] 02-06-2023 08:50-0400 Diastolic blood pressure 76 mm[Hg] Dr. Tequila Renee Work Phone: [facility] 02-06-2023 08:50-0400 Heart rate 72 /min Dr. Tequila Renee Work Phone: 2(905)694-950461 [place] [address] 02-06-2023 08:50-0400 Systolic blood pressure 118 mm[Hg] Dr. Tequila Renee Work Phone: 1(463)739-775961 [place] [address] 02-02-2023 10:50-0400 Body temperature 96.9 [degF] Dr. Tequila Renee Work Phone: [facility] 02-02-2023 10:50-0400 Diastolic blood pressure 57 mm[Hg] Dr. Tequila Renee Work Phone: 9(387)381-969861 [place] [address] 02-02-2023 10:50-0400 Heart rate 73 /min Dr. Tequila Renee Work Phone: [facility] 02-02-2023 10:50-0400 Respiratory rate 16 /min Dr. Tequila Renee Work Phone: [facility] 02-02-2023 10:50-0400 SaO2% (BldA) [Mass fraction] 97 % Dr. Tequila Renee Work Phone: [facility] 02-02-2023 10:50-0400 Systolic blood pressure 107 mm[Hg] Dr. Tequila Renee Work Phone: [facility] 02-02-2023 09:49-0400 Body height 162.[address] Tequila Renee Work Phone: [facility] 02-02-2023 09:49-0400 Body mass index (BMI) [Ratio] 37.8 kg/m2 Dr. Tequila Renee Work Phone: [facility] 02-02-2023 09:49-0400 Body weight [address] Tequila Renee Work Phone: [facility] 01-23-2023 08:10-0400 Body mass index (BMI) [Ratio] 39.5 kg/m2 Dr. Tequila Renee Work Phone: [facility] 01-23-2023 08:10-0400 Body weight 104.[address] Tequila Renee Work Phone: [facility] 01-23-2023 08:10-0400 Diastolic blood pressure 82 mm[Hg] Dr. Tequila Renee Work Phone: [facility] 01-23-2023 08:10-0400 Systolic blood pressure 113 mm[Hg] Dr. Tequila Renee Work Phone: [facility] 01-13-2023 08:27-0400 Body height 160 cm Tequila Renee MD Work Phone: [facility] 01-13-2023 08:27-0400 Body mass index (BMI) [Ratio] 40.07 kg/m2 Tequila Renee MD Work Phone: [facility] 01-13-2023 08:27-0400 Body weight 102.6 kg Tequila Renee MD Work Phone: [facility] 01-13-2023 08:27-0400 Diastolic blood pressure 80 mm[Hg] Tequila Renee MD Work Phone: [facility] 01-13-2023 08:27-0400 Heart rate 96 /min Tequila Renee MD Work Phone: [facility] 01-13-2023 08:27-0400 Systolic blood pressure 130 mm[Hg] Tequila Renee MD Work Phone: [facility] 11-25-2022 08:19-0500 Body height 161.29 cm Tequila Renee Work Phone: [facility] Work Phone: 11-25-2022 08:19-0500 Body mass index (BMI) [Ratio] 39.81 kg/m2 Tequila Renee Work Phone: [facility] Work Phone: 11-25-2022 08:19-0500 Body surface area Derived from formula 2.06 m2 Tequila Renee Work Phone: [facility] Work Phone: 11-25-2022 08:19-0500 Body weight 103.56 kg Tequila Renee Work Phone: [facility] Work Phone: 11-25-2022 08:19-0500 Diastolic blood pressure 78 mm[Hg] Tequila Renee Work Phone: [facility] Work Phone: 11-25-2022 08:19-0500 Heart rate 92 /min Tequila Renee Work Phone: [facility] Work Phone: 11-25-2022 08:19-0500 SaO2% (BldA) [Mass fraction] 99 % Tequila Renee Work Phone: [facility] Work Phone: 11-25-2022 08:19-0500 Systolic blood pressure 110 mm[Hg] Tequila Renee Work Phone: [facility] Work Phone: 09-02-2022 17:00-0500 Body temperature 98.6 [degF] Dr. Tequila Renee Work Phone: [facility] 09-02-2022 17:00-0500 Diastolic blood pressure 88 mm[Hg] Dr. Tequila Renee Work Phone: [facility] 09-02-2022 17:00-0500 Heart rate 122 /min Dr. Tequila Renee Work Phone: [facility] 09-02-2022 17:00-0500 Respiratory rate 20 /min Dr. Tequila Renee Work Phone: [facility] 09-02-2022 17:00-0500 SaO2% (BldA) [Mass fraction] 95 % Dr. Tequila Renee Work Phone: [facility] 09-02-2022 17:00-0500 Systolic blood pressure 138 mm[Hg] Dr. Tequila Renee Work Phone: [facility] 07-24-2022 15:48-0400 Body height 162.[address] Tequila Renee Work Phone: [facility] Work Phone: 07-24-2022 15:48-0400 Body mass index (BMI) [Ratio] 37.5 kg/m2 Dr. Tequila Renee Work Phone: [facility] Work Phone: 07-24-2022 15:48-0400 Body weight 99.[address] Tequila Renee Work Phone: [facility] Work Phone: 07-24-2022 15:48-0400 Diastolic blood pressure 80 mm[Hg] Dr. Tequila Renee Work Phone: [facility] Work Phone: 07-24-2022 15:48-0400 Systolic blood pressure 120 mm[Hg] Dr. Tequila Renee Work Phone: [facility] Work Phone: 01-08-2022 09:03-0400 Body height 161.29 cm Tequila Renee Work Phone: [facility] 205 DO Work Phone: 01-08-2022 09:03-0400 Body mass index (BMI) [Ratio] 38.36 kg/m2 Tequila Renee Work Phone: [facility] 205 DO Work Phone: 01-08-2022 09:03-0400 Body surface area Derived from formula 2.03 m2 Tequila Renee Work Phone: [facility] 205 DO Work Phone: 01-08-2022 09:03-0400 Body weight 99.79 kg Tequila Renee Work Phone: [facility] 205 DO Work Phone: 01-08-2022 09:03-0400 Diastolic blood pressure 74 mm[Hg] Tequila Renee Work Phone: [facility] 205 DO Work Phone: 01-08-2022 09:03-0400 Heart rate 84 /min Tequila Renee Work Phone: [facility] 205 DO Work Phone: 01-08-2022 09:03-0400 Systolic blood pressure 126 mm[Hg] Tequila Renee Work Phone: [facility] 205 DO Work Phone: Encounters Encounter Date Encounter Type Care Provider Facility Start: 05-08-2025 ambulatory Diaz Kaiser Facility:[facility] Start: 03-27-2025 ambulatory Navya Gonzalez lity:ADEN Start: 02-14-2025 ambulatory Tequila Renee Facility: [facility] [facility] Start: 02-08-2025 End: 02-08-[address] Tequila Renee MD Work Phone: [facility] Work Phone: Start: 02-08-2025 End: 02-08-[address] Navya Mead MD -Laboratory, Specimen Work Phone: Start: 02-08-2025 End: 02-08-[address] Navya Mead MD -[facility] Work Phone: Start: 02-08-2025 End: 02-08-2025 ambulatory Tequila Renee Facility:[facility] [place] Start: 02-08-2025 End: 02-08-2025 ambulatory Navya Mead Facility:[facility] Start: 02-03-2025 End: 02-03-2025 Patient encounter status Tequila Renee MD Work Phone: [facility] Work Phone: Start: 02-03-2025 End: 02-03-2025 Periodic preventive med est patient 40-64yrs Tequila Renee MD Work Phone: [facility] Comment on above: Screening breast exa mination (Primary Dx); Wellness examination Start: 02-03-2025 End: 02-03-2025 ambulatory TEQUILA Donato [facility] Ambulatory Start: 01-31-2025 End: 01-31-[address] Navya Mead MD -[facility] Work Phone: Start: 01-31-2025 End: 01-31-2025 ambulatory Tequila Renee Facility:[facility] [place] Start: 01-09-2025 End: 01-09-2025 Admission to same day surgery center Dr. Philip Gerber MD -Surgical Day Care Start: 01-09-2025 End: 01-09-[address] Tequila Renee MD Work Phone: [facility] Work Phone: Start: 01-06-2025 End: 01-06-[address] Tequila Renee MD Work Phone: [facility] Work Phone: Start: 01-06-2025 End: 01-06-[address] Philip Gerber MD -[facility] Work Phone: Start: 01-06-2025 End: 01-06-2025 ambulatory Philip Gerber Facility:[facility] Start: 01-02-2025 End: 01-02-[address] Tequila Renee MD Work Phone: [facility] Work Phone: Start: 01-02-2025 End: 01-02-[address] Philip Gerber MD -Physical Therap y Work Phone: Start: 01-02-[address] Philip boyer MD -Physical Therapy Work Phone: Start: 11-11-2024 End: 11-11-[address] Navya Mead MD -Lab, [facility] Start: 11-11-2024 End: 11-11-[address] Navya Mead MD -[facility] Work Phone: Start: 11-11-2024 End: 11-11-2024 ambulatory Navya Mead Facility:[facility] [place] Start: 11-11-2024 End: 11-11-2024 ambulatory Navya Mead Facility:[facility] Start: 10-24-2024 End: 10-24-2024 Admission to same day surgery center Dr. Philip Gerber MD -[facility] Start: 10-24-2024 End: 10-24-2024 ambulatory Philip Gerber Facility:[facility] Start: 06-20-2024 End: 06-20-2024 ambulatory Philip Gerber Facility:[facility] Start: 06-07-2024 ambulatory Tequila Renee Facility: [facility] [place] Start: 03-25-2024 End: 03-25-2024 ambulatory Philip Gerber Facility:[facility] Start: 12-07-2023 End: 12-07-2023 Admission to same day surgery center Dr. Tequila Renee Work Phone: [facility] Start: 12-07-2023 End: 12-07-[address] Tequila Renee Work Phone: [facility] Work Phone: Start: 11-16-2023 End: 11-16-[address] Tequila Renee Work Phone: [facility] Work Phone: Start: 09-23-2023 End: 09-23-[address] Tequila Renee Work Phone: [facility] Work Phone: Start: 09-23-2023 End: 09-23-[address] Tequila Renee Work Phone: [facility]-Nuclear Medicine, [facility] Work Phone: Start: 09-16-2023 Non-patient / Non-visit Dr. Chrissy Renee Work Phone: [facility] Start: 09-16-2023 End: 09-16-2023 Admission to same day surgery center Dr. Tequila Renee Work Phone: [facility] Start: 09-16-2023 End: 09-16-[address] Tequila Renee Work Phone: [facility] Work Phone: Start: 09-09-2023 End: 09-09-2023 Non-patient / Non-visit Dr. Tequila Renee Work Phone: [facility] Work Phone: Start: 09-09-2023 End: 09-09-[address] Tequila Renee Work Phone: [facility] Work Phone: Start: 09-09-2023 End: 09-09-[address] Tequila Renee Work Phone: [facility]-Ultrasound, [facility] Work Phone: Start: 09-07-2023 End: 09-07-[address] Tequila Renee Work Phone: [facility] Work Phone: Start: 08-26-2023 End: 08-26-[address] Tequila Renee Work Phone: [facility] Work Phone: Start: 08-03-2023 End: 08-03-[address] Tequila Renee Work Phone: [facility] Work Phone: Start: 06-25-2023 End: 06-25-[address] Tequila Renee Work Phone: [facility] Work Phone: Start: 06-25-2023 End: 06-25-[address] Tequila Renee Work Phone: [facility]-Physical Therapy Work Phone: Start: 06-25-[address] Tequila Renee Work Phone: [facility]-Physical Therapy Work Phone: Start: 05-22-2023 End: 05-22-[address] Tequila Renee Work Phone: [facility] Work Phone: Start: 03-19-2023 End: 03-19-[address] Tequila Renee Work Phone: [facility] Work Phone: Start: 03-19-2023 End: 03-19-[address] Tequila Renee Work Phone: [facility]-Outpatient Breast Imaging Start: 03-05-2023 End: 03-05-[address] Tequila Renee Work Phone: [facility] Work Phone: Start: 03-05-2023 End: 03-05-[address] Tequila Renee Work Phone: [facility] Start: 02-21-2023 End: 02-21-[address] Tequila Renee Work Phone: [facility] Work Phone: Start: 02-21-2023 End: 02-21-[address] Tequila Renee Work Phone: [facility] Start: 02-11-2023 End: 02-11-[address] Tequila Renee Work Phone: [facility]-Pulmonary Medicine [facility] Start: 02-06-2023 End: 02-06-2023 Emergency department patient visit Dr. Tequila Renee Work Phone: [facility]-Emergency Department Start: 02-06-2023 End: 02-06-[address] Tequila Renee Work Phone: [facility] Start: 02-03-2023 Non-patient / Non-visit Dr. Chrissy Renee Work Phone: [facility] Start: 02-03-2023 End: 02-03-[address] Tequila Renee Work Phone: [facility] Work Phone: Start: 02-03-2023 End: 02-03-[address] Tequila Renee Work Phone: [facility]-Cardiovascul ar Services Start: 02-02-2023 End: 02-02-2023 Admission to same day surgery center Dr. Tequila Renee Work Phone: [facility]-Surgical Day Care Start: 02-02-2023 End: 02-02-[address] Tequila Renee Work Phone: [facility] Work Phone: Start: 01-23-2023 End: 01-23-[address] Tequila Renee Work Phone: [facility] Start: 01-13-2023 End: 01-13-2023 Office outpatient visit 15 minutes Tequila Renee MD Work Phone: [facility] Comment on above: Dyspnea and respirat ory abnormalities (Primary Dx); Chronic cough; Gastroesophageal reflux disease without esophagitis; Class 3 severe obesity due to excess calories without serious comorbidity with body mass index (BMI) of 40.0 to 44.9 in adult ([facility]) Start: 12-10-2022 Non-patient / Non-visit Dr. Chrissy Renee Work Phone: [facility] Start: 12-09-2022 End: 12-09-[address] Tequila Renee Work Phone: [facility] Work Phone: Start: 12-09-2022 End: 12-09-[address] Tequila Renee Work Phone: [facility]-Pulmonary Services/Neurology Start: 12-05-2022 End: 12-05-2022 Non-patient / Non-visit Dr. Tequila Renee Work Phone: [facility] Start: 12-05-2022 End: 12-05-[address] Tequila Renee Work Phone: [facility] Work Phone: Start: 12-05-2022 End: 12-05-[address] [facility] Start: 12-04-2022 End: 12-04-[address] Tequila Renee Work Phone: [facility] Start: 12-01-2022 AUDIT Tequila Renee Work Phone: [facility] Work Phone: Start: 11-25-2022 Office outpatient vi sit 25 minutes Tequila Renee Work Phone: [facility] Work Phone: Start: 11-25-2022 ambulatory MD TEQUILA RENEE Facility:[id number] Start: 09-16-[address] [facility] Start: 09-03-[address] [facility] Start: 09-02-2022 End: 09-02-[address] Tequila Renee Work Phone: [facility] Work Phone: Start: 09-02-2022 End: 09-02-[address] Tequila Renee Work Phone: [facility] Start: 07-24-2022 End: 07-24-[address] Tequila Renee Work Phone: [facility] Start: 07-09-2022 AUDIT Tequila Renee Work Phone: [facility] 205 DO Work Phone: Start: 01-08-2022 Periodic preventive med est patient 40-64yrs Tequila Renee Work Phone: [facility] 205 DO Work Phone: Start: 01-08-2022 ambulatory MD TEQUILA RENEE Facility:[id number] Start: 12-25-2021 AUDIT Tequila Renee Work Phone: [facility] 205 DO Work Phone: Start: 12-11-2017 End: 12-12-2017 Ambulatory Tequila Renee Facility:[facility] Start: 11-19-2017 End: 11-19-2017 Ambulatory Tequila Renee Facility:[facility] Start: 07-01-2017 End: 07-02-2017 Ambulatory Tequila Renee Facility:[facility] Procedures Date Procedure Procedure Detail Performing Clinician Start: 02-08-[address] Tequila Renee MD Work Phone: Start: 01-09-[address] Tequila Renee MD Work Phone: Start: 01-09-2025 Injection of spinal epidural space Dr. Tequila Renee MD Work Phone: Start: 01-09-2025 X-ray of lumbar spin e, two or three views Dr. Tequila Renee MD Work Phone: Start: 01-06-2025 MRI of lumbar spine Dr. Tequila Renee MD Work Phone: Start: 11-11-2024 Measurement of renal function Dr. Teuqila Renee MD Work Phone: Comment on above: GFR Calc Start: 11-11-2024 Vitamin D, 25-hydrox y measurement Dr. Tequila Renee MD Work Phone: Comment on above: Vitamin D 25(OH) Sta tus Range Deficiency <20 ng/mL (50nmol/L) Insufficiency 20 - 30 ng/mL (50 - 75 nmol/L) Sufficiency 30 - 100 ng/mL (75 - 250 nmol/L) Toxicity >100 ng/mL (>250 nmol/L) Start: 10-24-2024 Injection of spinal epidural space Dr. Tequila Renee MD Work Phone: Start: 10-24-2024 Injection using fluoroscopic guidance Dr. Tequila Renee MD Work Phone: Start: 10-24-2024 Local anesthetic sac ral epidural block Dr. Tequila Renee MD Work Phone: Start: 12-07-2023 Local anesthetic sac ral epidural block Dr. Tequila Renee Work Phone: Start: 09-23-2023 Radionuclide imaging of liver and/or biliary tract using radioactive isotope Dr. Tequila Renee Work Phone: Start: 09-16-2023 End: 09-16-[address] Tequila Renee Work Phone: Start: 09-09-2023 US scan of gallbladder Dr. Tequila Renee Work Phone: Start: 03-19-2023 End: 03-19-[address] Tequila Renee Work Phone: Start: 03-05-2023 MRI of joint of lowe r extremity Dr. Tequila Renee Work Phone: Start: 02-21-2023 MRI of lumbar spine Dr. Tequila Renee Work Phone: Start: 02-06-[address] Giuseppe Renee Work Phone: Start: 02-02-2023 Local anesthetic sac ral epidural block Dr. Tequila Renee Work Phone: Start: 02-02-2023 Injection of spinal epidural space Dr. Tequila Renee Work Phone: Start: 02-02-2023 Injection using fluoroscopic guidance Dr. Tequila Renee Work Phone: Start: 12-04-2022 Plain chest X-ray Dr. Jonathan Renee Work Phone: Start: 09-02-2022 Plain chest X-ray Dr. Jonathan Renee Work Phone: section Tequila [place] Work Phone: Oophorectomy Tequila Renee Work Phone: Operative procedure on foot Tequila Renee Work Phone: Ostectomy of calcane us for spur Tequila Renee Work Phone: Plan of Treatment Date Care Activity Detail Author Start: 09-16-2033 Screening for malign ant neoplasm of colon [facility] Start: 11-11-2027 Diabetes mellitus screening Diabetes Screening [facility] Start: 02-13-2026 End: 02-13-2026 Patient encounter procedure 02/13/2026 8:00 AM EDT Office Visit [address] [id number] Tequila Renee MD [address] [place] [id number] [facility] Start: 02-08-2025 Bacteria identified in Urine by Culture Urine Culture [facility] Start: 02-08-2025 [facility] Start: 02-03-2025 End: 04-05-2026 DBT Breast - bilateral BI mammo bilateral screening tomosynthesis Imaging Routine Screening breast examination Expected: 02/03/2025, Expires: 04/05/2026 [facility] Service Area Work Phone: Comment on above: Expected: 02/03/2025 , Expires: 04/05/2026 Start: 01-31-2025 Patient referral [facility] Work Phone: Start: 01-09-2025 Njx anes&/strd w/img tfrml edrl lmbr/sac 1 lvl NJX AA&/STRD TFRM EPI L/S 1 [facility] Start: 01-09-2025 Injection of spinal epidural space [facility] Start: 01-09-2025 X-ray of lumbar spin e, two or three views Lumbar Spine 2 or 3 Views [facility] Start: 01-09-2025 Patient discharge [facility] Start: 10-24-2024 Patient discharge [facility] Start: 06-05-2024 COVID-19 Vaccine ( season) COVID-19 Vaccine ( season) [facility] Start: 03-19-2024 Screening for malign ant neoplasm of breast Mammogram [facility] Start: 12-07-2023 Injection of spinal epidural space [facility] Start: 12-07-2023 Injection using fluoroscopic guidance [facility] Start: 12-07-2023 Patient discharge [facility] Start: 09-16-2023 Colonoscopy flx dx w/collj spec when pfrmd DIAGNOSTIC COLONOSCOPY [facility] Start: 09-16-2023 Egd transoral biopsy single/multiple EGD BIOPSY SINGLE/MULTIPLE [facility] Start: 09-16-2023 Patient discharge [facility] Start: 02-02-2023 Njx dx/ther sbst intrlmnr lmbr/sac w/img gdn NJX INTERLAMINAR LMBR/SAC [facility] Start: 02-02-2023 Injection using fluoroscopic guidance [facility] Start: 02-02-2023 Vitamin D, 1,25-dihydroxy measurement [facility] Start: 02-02-2023 Patient discharge [facility] Start: 01-23-2023 Patient referral [facility] Work Phone: Start: 01-13-2023 End: 01-14-2024 US Heart Transthoracic Transthoracic Echo (TTE) Complete Echocardiography Routine Dyspnea and respiratory abnormalities Expected: 01/13/2023, Expires: 01/14/2024 [facility] Service Area Work Phone: Comment on above: Expected: 01/13/2023 , Expires: 01/14/2024 Start: 01-08-2023 FUV, Provider: Tequila Renee, Status: Pen, Time: 9:00 AM FUV, Provider: Tequila Renee, Status: Pen, Time: 9:00 AM [facility] 205 DO Work Phone: Start: 2022 Pneumococcal vaccination Pneum ococcal Vaccine (1 of 1 - PCV) [facility] Start: 2022 Zoster Vaccines (1 of 2) Zoster Vacc latricia (1 of 2) [facility] Start: 01-07-2022 EPV, Provider: Tequila Renee, Status: Pen, Time: 8:40 AM EPV, Provider: Tequila Renee, Status: Pen, Time: 8:40 AM [facility] 205 DO Work Phone: Start: 10-11-2021 COVID-19 Vaccine (4 - Booster for Moderna series) COVID-19 Vaccine (4 - Booster for Moderna series) [facility] Start: 2012 Screening for malign ant neoplasm of breast Mammogram [facility] Start: 1994 DTaP/Tdap/Td Vaccine s (1 - Tdap) DTaP/Tdap/Td Vaccines (1 - Tdap) [facility] Start: 1993 Screening for malign ant neoplasm of cervix [facility] Start: 1991 Hepatitis B Vaccines (1 of 3 - 19+ 3-dose series) Hepatitis B Vaccines (1 of 3 - 19+ 3-dose series) [facility] Start: 1990 [facility]: [facility] MMR Vaccines (1 of 1 - Standard series) MMR Vaccines (1 of 1 - Standard series) [facility] Start: 1972 Hepatitis B Vaccines (1 of 3 - 3-dose series) Hepatitis B Vaccines (1 of 3 - 3-dose series) [facility] Start: 1972 HIV screening HIV Screening [facility] Start: 1972 Lipid panel Lipid Panel [facility] Start: 1972 Screening for malign ant neoplasm of colon [facility] Start: 1972 Yearly Adult Physical Yearly Adult P hysical [facility] Patient Education ED Ankle Sprain (Adult) [facility] Work Phone: Patient referral [facility] Work Phone: Polysomnography [facility] Urine culture [facility] Immunizations Immunization Date Immunization Notes Care Provider Rosalie miller 08-29-2024 influenza, seasonal, injectable, preservative free Dr. Tequila Renee MD Work Phone: [facility] 11-10-2023 influenza, injectabl e, quadrivalent, preservative free Dr. Tequila Renee Work Phone: [facility] 07-04-2022 influenza, injectabl e, quadrivalent, preservative free Dr. Tequila Renee Work Phone: [facility] 07-04-2022 influenza, seasonal, injectable Dr. Tequila Renee Work Phone: [facility] 08-16-2021 Moderna COVID-19 Vaccine 100 MCG/0.5ML Intramuscular Suspension Tequila Renee Work Phone: [facility] 07-30-2021 influenza, injectabl e, quadrivalent, preservative free Dr. Tequila Renee Work Phone: [facility] 07-30-2021 influenza, seasonal, injectable Dr. Tequila Renee Work Phone: [facility] 07-30-2021 influenza, seasonal, injectable, preservative free Tequila Renee Work Phone: [facility] 10-31-2020 Moderna COVID-19 Vaccine 100 MCG/0.5ML Intramuscular Suspension Tequila Renee Work Phone: [facility] 10-03-2020 Moderna COVID-19 Vaccine 100 MCG/0.5ML Intramuscular Suspension Tequila Renee Work Phone: [facility] 08-09-2020 influenza, injectabl e, quadrivalent, preservative free Dr. Tequila Renee Work Phone: [facility] 08-09-2020 influenza, seasonal, injectable Dr. Tequila Renee Work Phone: [facility] 06-30-2019 influenza, injectabl e, quadrivalent, preservative free Dr. Tequila Renee Work Phone: [facility] 06-30-2019 influenza, seasonal, injectable Dr. Tequila Renee Work Phone: [facility] 08-11-2018 influenza, injectabl e, quadrivalent, preservative free Dr. Tequila Renee Work Phone: [facility] 08-11-2018 influenza, seasonal, injectable Dr. Tequila Renee Work Phone: [facility] 09-02-2017 influenza, injectabl e, quadrivalent, preservative free Dr. Tequila Renee Work Phone: [facility] 09-02-2017 influenza, seasonal, injectable Dr. Tequila Renee Work Phone: [facility] 07-03-2016 influenza, injectabl e, quadrivalent, preservative free Dr. Tequila Renee Work Phone: [facility] 07-03-2016 influenza, seasonal, injectable Dr. Tequila Renee Work Phone: [facility] 08-01-2015 influenza, injectabl e, quadrivalent, preservative free Dr. Tequila Renee Work Phone: [facility] 08-01-2015 influenza, seasonal, injectable Dr. Tequila Renee Work Phone: [facility] 07-05-2014 influenza, injectabl e, quadrivalent, preservative free Dr. Tequila Renee Work Phone: [facility] 07-05-2014 influenza, seasonal, injectable Dr. Tequila Renee Work Phone: [facility] Payers Date Payer Category Payer Self-pay [id number] 2022 Managed Care (Private) [facility] [id number] 2022 Unknown [id number] 2017 Unknown 2015 Unknown [id number] 1972 Unknown [id number] [id number]. 356 1972 Unknown [id number]. 356 1972 Unknown [id number] [id number]. 1244 Unknown [id number] 2.0.1.014848.3.579.2. 462 Unknown [id number] 2.16.840.1.116277.3.579.2. 462 Unknown [id number] 2.16.840.1.888868.3.579.2. 462 Unknown [id number] 2.16.840.1.074138.3.579.2. 462 Unknown [id number] 2.16.840.1.328001.3.579.2. 462 Unknown [id number] 2.16.840.1.218231.3.579.2. 462 Unknown [id number] 2.16.840.1.004052.3.579.2. 462 Unknown [id number] 2.16.840.1.851224.3.579.2. 462 Unknown [id number] 2.16.840.1.196364.3.579.2. 462 Unknown [id number] 2.16.840.1.806475.3.579.2. 462 Unknown [id number] 2.16.840.1.409785.3.579.2. 462 Unknown [id number] 2.16.840.1.618227.3.579.2. 462 Unknown [id number] 2.16.840.1.562797.3.579.2. 462 Unknown [id number] 2.16.840.1.750693.3.579.2. 462 Unknown [id number] 2.16.840.1.929356.3.579.2. 462 Social History Date Type Detail Facility Assertion Unknown if ever smoked [facility] Work Phone: Start: 01-13-2023 End: 02-03-2025 Caffeine use Caffeine use [facility] 205 DO Work Phone: Start: 09-02-2022 End: 11-16-2023 Tobacco smoking status NHIS Unknown if ever smoked [facility] Start: 10-31-2020 Non-smoker [facility] Start: 1970 Sex Assigned At Female [facility] Start: 01-13-2023 End: 11-11-2024 Tobacco smoking status NHIS Never smoked tobacco [facility] Start: 01-13-2023 Tobacco use and exposure Smokeless tobacco non-user [facility] Work Phone: Start: 01-13-2023 End: 02-03-2025 Alcohol intake Lifetime non-drinker (finding) [facility] Work Phone: Start: 01-13-2023 End: 02-03-2025 Tobacco use panel [facility] Work Phone: Start: 1970 Sex Assigned At [facility] Work Phone: Start: 01-03-2023 End: 02-03-2025 Exposure to SARS-CoV-2 (event) Not sure [facility] Start: 01-09-2025 End: 01-11-2025 Sex Female (finding) [facility] NEGATED: Highlighted row [facility] Medical Equipment Procedure Code Equipment Code Equipment Origin al Text Equipment Identifier Dates ANCHOR,FIBERTAK DX FDA Start: 04-20-2020 ANCHOR,FIBERTAK DX FDA Start: 04-20-2020 INTERNALBRACE 2.0 FDA Start: 04-20-2020 INTERNALBRACE 2.0 FDA Start: 04-20-2020 JEMIMA 3GRM HEMO STAT ABS FDA Start: 11-06-2020 ANCHOR,FIBERTAK DX FDA Start: 04-20-2020 ANCHOR,FIBERTAK DX FDA Start: 04-20-2020 INTERNALBRACE 2.0 FDA Start: 04-20-2020 INTERNALBRACE 2.0 FDA Start: 04-20-2020 JEMIMA 3GRM HEMO STAT ABS FDA Start: 11-06-2020 ANCHOR,FIBERTAK DX FDA Start: 04-20-2020 ANCHOR,FIBERTAK DX FDA Start: 04-20-2020 INTERNALBRACE 2.0 FDA Start: 04-20-2020 INTERNALBRACE 2.0 FDA Start: 04-20-2020 JEMIMA 3GRM HEMO STAT ABS FDA Start: 11-06-2020 ANCHOR,FIBERTAK DX FDA Start: 04-20-2020 ANCHOR,FIBERTAK DX FDA Start: 04-20-2020 INTERNALBRACE 2.0 FDA Start: 04-20-2020 INTERNALBRACE 2.0 FDA Start: 04-20-2020 JEMIMA 3GRM HEMO STAT ABS FDA Start: 11-06-2020 ANCHOR,FIBERTAK DX FDA Start: 04-20-2020 ANCHOR,FIBERTAK DX FDA Start: 04-20-2020 INTERNALBRACE 2.0 FDA Start: 04-20-2020 INTERNALBRACE 2.0 FDA Start: 04-20-2020 JEMIMA 3GRM HEMO STAT ABS FDA Start: 11-06-2020 ANCHOR,FIBERTAK DX FDA Start: 04-20-2020 ANCHOR,FIBERTAK DX FDA Start: 04-20-2020 INTERNALBRACE 2.0 FDA Start: 04-20-2020 INTERNALBRACE 2.0 FDA Start: 04-20-2020 JEMIMA 3GRM HEMO STAT ABS FDA Start: 11-06-2020 ANCHOR,FIBERTAK DX FDA Start: 04-20-2020 ANCHOR,FIBERTAK DX FDA Start: 04-20-2020 INTERNALBRACE 2.0 FDA Start: 04-20-2020 INTERNALBRACE 2.0 FDA Start: 04-20-2020 JEMIMA 3GRM HEMO STAT ABS FDA Start: 11-06-2020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 Renee MD Primary Care Provider Active Start: January 02, 2025 Dr. Philip Gerber MD Attending Provider Active Start: January 02, 2025 Dr. Philip Gerber MD Referring Provider Active Start: January 02, 2025 Team Status: Active Member Role Status Dates Dr. Tequila Renee MD Primary Care Provider Active Start: January 06, 2025 Dr. Philip Gerber MD Attending Provider Active Start: January 06, 2025 Dr. Philip Gerber MD Referring Provider Active Start: January 06, 2025 Team Status: Inactive Member Role Status Dates Dr. Tequila Renee MD Primary Care Provider Active Start: January 09, 2025 End: January 09, 2025 Dr. Philip Gerber MD Attending Provider Active Start: January 09, 2025 End: January 09, 2025 Dr. Philip Gerber MD Referring Provider Active Start: January 09, 2025 End: January 09, 2025 Team Status: Inactive Member Role Status Dates Dr. Tequila Renee MD Primary Care Provider Active Start: January 06, 2025 End: January 06, 2025 Dr. Philip Gerber MD Attending Provider Active Start: January 06, 2025 End: January 06, 2025 Dr. Philip Gerber MD Referring Provider Active Start: January 06, 2025 End: January 06, 2025 Classification Analyst Relationship Specialty Start Date End Date Tequila Renee MD [address] [place] [address] PCP - General Family Medicine 4/3/23 Team Status: Inactive Member Role Status Dates Dr. Tequila Renee MD Primary Care Provider Active Start: January 02, 2025 End: January 02, 2025 Dr. Philip Gerber MD Attending Provider Active Start: January 02, 2025 End: January 02, 2025 Dr. Philip Gerber MD Referring Provider Active Start: January 02, 2025 End: January 02, 2025 Team Status: Inactive Member Role Status Dates Dr. Tequila Renee MD Primary Care Provider Active Start: January 31, 2025 End: January 31, 2025 Dr. Tequila Renee MD Referring Provider Active Start: January 31, 2025 End: January 31, 2025 Dr. Navya Mead MD Attending Provider Active Start: January 31, 2025 End: January 31, 2025 Team Status: Inactive Member Role Status Dates Dr. Tequila Renee MD Primary Care Provider Active Start: February 08, 2025 End: February 08, 2025 Dr. Tequila Renee MD Referring Provider Active Start: February 08, 2025 End: February 08, 2025 Dr. Navya Mead MD Attending Provider Active Start: February 08, 2025 End: February 08, 2025 Team Status: Active Member Role Status Dates Dr. Tequila Renee MD Primary Care Provider Active Start: February 08, 2025 Dr. Navya Mead MD Attending Provider Active Start: February 08, 2025 Dr. Navya Mead MD Referring Provider Active Start: February 08, 2025 Team Status: Inactive Member Role Status Dates Dr. Tequila Renee MD Primary Care Provider Active Start: February 08, 2025 End: February 08, 2025 Dr. Navya Mead MD Attending Provider Active Start: February 08, 2025 End: February 08, 2025 Dr. Navya Mead MD Referring Provider Active Start: February 08, 2025 End: February 08, 2025 Reason for Visit (unrecogniz ed section and content) Reason Comments Follow up testing Reason Comments Annual Exam FOR RECORDS PERTAINING TO PATIENTS WHO ARE [...] BE BASED ON THE PRIMARY CLINICAL RECORDS. [facility]. provides no warranty or guarantee of the accuracy or completeness of information in this document.
[2025-03-25] MEDS: 0.9% Normal Saline (1000mL) 1,000 ML 150 ML IV ×2 (01:26→09:52)
[2025-03-25] MEDS: Pantoprazole Sodium 40 MG in 0.9% Normal Saline (100mL MB+) 100 ML 330 MG IV ×2 (01:26→21:33)
[2025-03-25 02:13] LABS: Lactic Acid < 1.0 mmol/L (0.0-2.0)
[2025-03-25 02:14] LABS: Thyroid Stim Hormone (TSH) 0.364 uIU/mL (0.300-4.200)
[2025-03-25] MEDS: metroNIDAZOLE 500 MG/100 ML BAG 100 MG IV ×3 (05:42→23:38)
--- NOTE | 2025-03-25 08:20 | PN.HOSP_ITS ---
Reason for Visit Reason for Visit: Diagnoses Sepsis, unspecified organism (03/25/25) Elevated white blood cell count, unspecified (03/25/25) Obesity, unspecified (03/25/25) Hypotension, unspecified (03/25/25) Noninfective gastroenteritis and colitis, unspecified (03/25/25) Gastrointestinal hemorrhage, unspecified (03/25/25) Bilious vomiting (03/25/25) Fever, unspecified (03/25/25) Subjective Subjective Still with abdominal pain and hematochezia. Objective Data Objective Data Vital Signs: Vital Signs Temp Pulse Resp BP Pulse Ox O2 Del Method 37.1 C 87 18 99/60 94 Room Air 03/25/25 04:00 03/25/25 04:00 03/25/25 04:00 03/25/25 04:00 03/25/25 04:00 03/25/25 04:00 Oxygen Delivery Method Room Air Weight: 98.7 kg Body Mass Index (BMI) 37.3 Intake & Output: Intake and Output for Last 24 Hours 03/23/25 03/24/25 03/25/25 23:59 23:59 23:59 Intake Total 2300 / 2300 1836.67 / 1836.67 Balance 2300 / 2300 1836.67 / 1836.67 Lab / Micro Data 03/25/25 01:35 03/24/25 16:57 Labs: Laboratory Results - last 24 hr 03/24/25 16:57: WBC 15.1 H, RBC 4.86, Hgb 14.8, Hct 43.2, MCV 88.9, MCH 30.5, MCHC 34.3, RDW Std Deviation 42.4, RDW Coeff of Valente 13.0, Plt Count 251, MPV 11.6, Immature Gran % (Auto) 0.500, Neut % (Auto) 89.3 H, Lymph % (Auto) 6.7 L, [place] % (Auto) 3.4, Eos % (Auto) 0.0, Baso % (Auto) 0.1, Absolute Neuts (auto) 13.5 H, Absolute Lymphs (auto) 1.01, Nucleated RBC % 0, Sodium 142, Potassium 3.7, Chloride 105, Carbon Dioxide 23.2, Anion Gap 14, BUN 11, Creatinine 0.74, Estim Creat Clear Calc 101.35, Est GFR (MDRD) Non-Af 98, BUN/Creatinine Ratio 15.0, Glucose 110 H, Calcium 10.1, Total Bilirubin 0.47, AST 21, ALT 18, A lkaline Phosphatase 106 H, Total Protein 7.3, Albumin 4.5, Globulin 2.8, Albumin/Globulin Ratio 1.6, Lipase 15 03/24/25 19:47: Urine Color Straw, Urine Clarity Clear, Urine pH 8.0, Ur Specific [place] 1.010, Urine Protein 15 H, Urine Glucose (UA) Normal, Urine Ketones Negative, Urine Occult Blood 50 H, Urine Nitrite Negative, Urine Bilirubin Negative, Urine Urobilinogen Normal, Ur Leukocyte Esterase Negative, Urine RBC 0-5 SEEN, Urine WBC 0-5 SEEN, Ur Squamous Epith Cells 0 SEEN, Urine Bacteria RARE, Urine Mucus 0 SEEN 03/24/25 23:12: PT 15.0 H, INR 1.2, APTT 32.9 03/24/25 23:16: Lactic Acid 1.0 03/24/25 23:25: Blood Type A POSITIVE, Antibody Screen NEGATIVE 03/25/25 01:35: Lactic Acid < 1.0, TSH 0.364 Radiography Diagnostic Testing: Radiology Impression Abdomen/Pelvis CT 03/24/25 17:08 IMPRESSION: Colitis on the left. No obstruction. Lung bases are clear Reading Location: [facility] Physical Exam Const alert and no apparent distress Constitutional Narrative: uncomoftable. HEENT head/scalp atraumatic and moist oral mucous membranes Resp normal respiratory effort, no retractions, no use of accessory muscles and clear to auscultation bilaterally Cardio regular rate, regular rhythm, S1 normal heart sound and S2 normal heart sound Neuro Sensorium / Orientation: awake and alert Assessment & Plan Assessment/Plan (1) Colitis: PLAN: infectious v inflammatory v ischemia pt denies abx use in past 3 month (present hospitalization excluded) continue abx w cipro and metronidazole (2) LGI bleed: PLAN: 2/2 colitis Gi consult (3) ABLA (acute blood loss anemia): PLAN: 2/2 GIB. Hg 14.8 down to 11.9. monitor no need for transfusion PLAN: Plan VTE prophylaxis: SCDs. Charges/Coding Visit Charges Inpatient E&M: 14253 Subs Hosp L2
--- NOTE | 2025-03-25 09:20 | CASEMGMT ---
FERNANDO LUQUE Assessment: Face to Face with pt for initial transition planning/care coordination assessment. RN REBEL introduced self and role at [facility], pt voices understanding and consents to assessment. Pt is A&O x4 and answers all questions appropriately at this time. Pt lying in bed in no distress. Care providers, pharmacy, and demographics verified/updated. Admitting Dx: colitis, LGIB with BRBPR, N/V and possible sepsis PCP:Tai Specialists:kirit Mejia Preferred Pharmacy: [facility] Retail Insurance: [employer] Prescription Benefit: yes LNOK: Gregory Martínez, Living Arrangements: Pt lives with and dtr in a single story home with 3 steps to enter. Pt reports being I in ADL/IADLs and denies concerns at home. Transportation: Pt drives self and denies concerns with transportation. DME:Denies HHC/SNF: Denies hx of Pt states no concerns with going home at time of dc. Pt states no further concerns/needs. CM to follow. Advised pt to ask CM if any further questions/concerns/needs arise, voices understanding. Pt Goal: Home Plan: Home Elo KING CM
[2025-03-25] MEDS: Morphine 2 MG/ML Syringe IV ×2 (09:52→14:41)
[2025-03-25] MEDS: Ondansetron 4 MG/2 ML Vial IV ×3 (09:53→19:06)
[2025-03-25] MEDS: Ciprofloxacin 200 MG/100 ML BAG 100 MG IV ×2 (09:55→22:11)
[2025-03-25 10:16] LABS: Absolute Lymphocyte Count 1.22 X10^3/uL (0.83-4.51); Absolute Neutrophil Count 12.1 X10^3/uL (2.0-7.7); Basophil# 0.02 X10^3/uL; Basophil% 0.1 % (0-1); Hematocrit 35.4 % (37-47); Hemoglobin 11.9 g/dL (12.0-15.0); Lymphocyte # 1.22 X10^3/ul (0.83-4.51); Lymphocyte % 8.6 % (19-41); Mean Corp Hgb Conc 33.6 g/dL (32-36); Mean Corpuscular Hgb 30.5 pg (27.0-32.0); Mean Corpuscular Volume 90.8 fL (81-99); Monocyte# 0.83 X10^3/uL; Monocyte% 5.8 % (0-10); NRBC Flagged by Analyzer 0 % (0-5); Neutrophil # 12.11 X10^3/uL (2.7-7.7); Neutrophil % 85.3 % (47-70); Platelet Count 181 K/mm3 (150-450); RBC Distribution Width CV 13.3 % (11.6-14.6); White Blood Count 14.2 K/mm3 (4.4-11.0)
[2025-03-25 11:26] LABS: Anion Gap 12 (5-15); BUN 9 mg/dL (4-19); BUN/Creat Ratio 11.3 RATIO (10-20); Calcium,Total 8.1 mg/dL (7.6-11.0); Carbon Dioxide 18.3 mmol/L (21.0-32.0); Chloride 112 mmol/L (98-108); Creatinine, Serum 0.75 mg/dL (0.70-1.20); EST Glomerular Filtration Rate 96 (>60); Estimated Creatinine Clearance 100.15 ml/min (50-250); Glucose 124 mg/dL (70-99); Potassium 3.2 mmol/L (3.3-5.1); Sodium Level 142 mmol/L (133-145)
[2025-03-25] MEDS: proMETHazine 25 MG/ML Syringe 12.5 MG IM (12:36)
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
[2025-03-25] MEDS: 0.9% Saline Lock 10 ML Syringe IV ×2 (14:41→21:29)
[2025-03-25 15:33] LABS: Hematocrit 34.9 % (37-47); Hemoglobin 11.7 g/dL (12.0-15.0)
[2025-03-25] MEDS: Acetaminophen 325 MG Tablet 650 MG PO (17:18)
[2025-03-25] MEDS: Dicyclomine 10 MG Capsule PO ×2 (19:06→23:36)
[2025-03-25] MEDS: Potassium Chloride 10mEq/100mL 10 MEQ/100 ML IV.SOLN. 100 MEQ IV BOLUS ×2 (21:32→23:05)
[2025-03-25] MEDS: Pregabalin 75 MG Capsule 150 MG PO (21:51)
[2025-03-26] VITALS (8 sets, daily range): BP systolic 93–111; BP diastolic 40–64; PULSE 79–89; RESP 14–18; TEMP 36.6–37.8; O2SAT 92–94
[2025-03-26] MEDS: Potassium Chloride 10mEq/100mL 10 MEQ/100 ML IV.SOLN. 100 MEQ IV BOLUS ×2 (00:06→01:17)
[2025-03-26 05:21] LABS: Absolute Lymphocyte Count 1.92 X10^3/uL (0.83-4.51); Absolute Neutrophil Count 8.4 X10^3/uL (2.0-7.7); Basophil# 0.04 X10^3/uL; Basophil% 0.4 % (0-1); Eosinophils% 0.9 % (0-5); Hematocrit 32.6 % (37-47); Lymphocyte # 1.92 X10^3/ul (0.83-4.51); Lymphocyte % 17.2 % (19-41); Mean Corp Hgb Conc 33.7 g/dL (32-36); Mean Corpuscular Hgb 30.8 pg (27.0-32.0); Mean Corpuscular Volume 91.3 fL (81-99); Monocyte# 0.67 X10^3/uL; NRBC Flagged by Analyzer 0 % (0-5); Neutrophil # 8.39 X10^3/uL (2.7-7.7); Neutrophil % 75.1 % (47-70); Platelet Count 160 K/mm3 (150-450); RBC Distribution Width CV 13.5 % (11.6-14.6); RBC Distribution Width SD 45.5 fl (35.1-43.9); Red Blood Count 3.57 M/mm3 (4.2-5.4); White Blood Count 11.2 K/mm3 (4.4-11.0)
[2025-03-26] MEDS: metroNIDAZOLE 500 MG/100 ML BAG 100 MG IV ×3 (05:23→22:58)
[2025-03-26] MEDS: 0.9% Saline Lock 10 ML Syringe IV ×2 (05:23→22:22)
[2025-03-26] MEDS: Dicyclomine 10 MG Capsule PO ×4 (05:23→22:42)
[2025-03-26 06:03] LABS: Anion Gap 9 (5-15); BUN 5 mg/dL (4-19); Calcium,Total 8.3 mg/dL (7.6-11.0); Carbon Dioxide 21.1 mmol/L (21.0-32.0); Chloride 109 mmol/L (98-108); Creatinine, Serum 0.72 mg/dL (0.70-1.20); EST Glomerular Filtration Rate 100 (>60); Estimated Creatinine Clearance 104.32 ml/min (50-250); Glucose 106 mg/dL (70-99); Potassium 3.1 mmol/L (3.3-5.1); Sodium Level 140 mmol/L (133-145)
--- NOTE | 2025-03-26 09:16 | PCM.PN.HOSP ---
Reason for Visit Reason for Visit: Diagnoses Sepsis, unspecified organism (03/25/25) Acute posthemorrhagic anemia (03/25/25) Elevated white blood cell count, unspecified (03/25/25) Obesity, unspecified (03/25/25) Hypotension, unspecified (03/25/25) Noninfective gastroenteritis and colitis, unspecified (03/25/25) Gastrointestinal hemorrhage, unspecified (03/25/25) Bilious vomiting (03/25/25) Fever, unspecified (03/25/25) Subjective Subjective Feeling better. Still with left sided abdominal pain. Objective Data Objective Data Vital Signs: Vital Signs Temp Pulse Resp BP Pulse Ox O2 Del Method 36.6 C 79 14 108/64 92 Room Air 03/26/25 05:30 03/26/25 05:30 03/26/25 05:30 03/26/25 05:30 03/26/25 05:30 03/26/25 05:35 Oxygen Delivery Method Room Air Weight: 98.7 kg Body Mass Index (BMI) 37.3 Intake & Output: Intake and Output for Last 24 Hours 03/24/25 03/25/25 03/26/25 23:59 23:59 23:59 Intake Total 2300 / 2300 3796.67 / 3796.67 550 / 550 Balance 2300 / 2300 3796.67 / 3796.67 550 / 550 Lab / Micro Data 03/26/25 04:34 03/26/25 04:34 Labs: Laboratory Results - last 24 hr 03/25/25 01:35: WBC 14.2 H, RBC 3.90 L, Hgb 11.9 L, Hct 35.4 L, MCV 90.8, MCH 30.5, MCHC 33.6, RDW Std Deviation 44.0 H, RDW Coeff of [place] 13.3, Plt Count 181, MPV 12.0, Immature Gran % (Auto) 0.200, Neut % (Auto) 85.3 H, Lymph % (Auto) 8.6 L, [place] % (Auto) 5.8, Eos % (Auto) 0.0, Baso % (Auto) 0.1, Absolute Neuts (auto) 12.1 H, Absolute Lymphs (auto) 1.22, Nucleated RBC % 0, Sodium 142, Potassium 3.2 L, Chloride 112 H, Carbon Dioxide 18.3 L, Anion Gap 12, BUN 9, Creatinine 0.75, Estim Creat Clear Calc 100.15, Est GFR (MDRD) Non-Af 96, BUN/Creatinine Ratio 11.3, Glucose 124 H, Calcium 8.1 03/25/25 14:58: Hgb 11.7 L, Hct 34.9 L 03/26/25 04:34: WBC 11.2 H, RBC 3.57 L, Hgb 11.0 L, Hct 32.6 L, MCV 91.3, MCH 30.8, MCHC 33.7, RDW Std Deviation 45.5 H, RDW Coeff of [place] 13.5, Plt Count 160, MPV 11.0, Immature Gran % (Auto) 0.400, Neut % (Auto) 75.1 H, Lymph % (Auto) 17.2 L, [place] % (Auto) 6.0, Eos % (Auto) 0.9, Baso % (Auto) 0.4, Absolute Neuts (auto) 8.4 H, Absolute Lymphs (auto) 1.92, Nucleated RBC % 0, Sodium 140, Potassium 3.1 L, Chloride 109 H, Carbon Dioxide 21.1, Anion Gap 9, BUN 5, Creatinine 0.72, Estim Creat Clear Calc 104.32, Est GFR (MDRD) Non-Af 100, BUN/Creatinine Ratio 7.0 L, Glucose 106 H, Calcium 8.3 Physical Exam Const alert and no apparent distress HEENT head/scalp atraumatic and moist oral mucous membranes Resp normal respiratory effort, no retractions, no use of accessory muscles and clear to auscultation bilaterally Cardio regular rate, regular rhythm, S1 normal heart sound and S2 normal heart sound GI normal to inspection, nondistended, normoactive bowel sounds and soft to palpation GI Narrative: TTP on left side, no rebound. Extremity normal to inspection and full ROM Neuro Sensorium / Orientation: awake and alert Assessment & Plan Assessment/Plan (1) Colitis: PLAN: infectious v inflammatory v ischemia GI suspects ischemic colitis pt denies abx use in past 3 month (present hospitalization excluded) continue abx w cipro and metronidazole (2) LGI bleed: PLAN: 2/2 colitis no plans for endoscopy (3) ABLA (acute blood loss anemia): PLAN: 2/2 GIB. Hg 14.8 down to 11.9. monitor no need for transfusion PLAN: Plan VTE prophylaxis: SCDs. Charges/Coding Visit Charges Inpatient E&M: 91133 Subs Hosp L2
[2025-03-26] MEDS: Docusate Sodium 100 MG Capsule PO (10:03)
[2025-03-26] MEDS: Ciprofloxacin 200 MG/100 ML BAG 100 MG IV ×2 (10:03→23:07)
[2025-03-26] MEDS: Pregabalin 75 MG Capsule 150 MG PO ×2 (10:03→22:41)
[2025-03-26] MEDS: 0.9% Normal Saline (250mL Bag) 250 ML 15 ML IV (17:44)
[2025-03-26] MEDS: Ondansetron 4 MG/2 ML Vial IV (22:22)
[2025-03-26] MEDS: Pantoprazole Sodium 40 MG in 0.9% Normal Saline (100mL MB+) 100 ML 330 MG IV (22:34)
[2025-03-27 03:30] VITALS: BP 99/55; PULSE 85; RESP 15; TEMP 37.4; O2SAT 93
[2025-03-27] MEDS: Acetaminophen 325 MG Tablet 650 MG PO ×3 (03:35→20:46)
[2025-03-27] MEDS: Dicyclomine 10 MG Capsule PO ×4 (05:57→22:50)
[2025-03-27] MEDS: metroNIDAZOLE 500 MG/100 ML BAG 100 MG IV ×3 (05:58→22:48)
[2025-03-27] MEDS: 0.9% Saline Lock 10 ML Syringe IV ×3 (05:58→22:14)
[2025-03-27 06:00] VITALS: BP 101/50; PULSE 75; RESP 14; TEMP 37.1; O2SAT 92
--- NOTE | 2025-03-27 07:51 | PCM.PN.HOSP ---
Reason for Visit Reason for Visit: Diagnoses Sepsis, unspecified organism (03/25/25) Acute posthemorrhagic anemia (03/25/25) Elevated white blood cell count, unspecified (03/25/25) Obesity, unspecified (03/25/25) Hypotension, unspecified (03/25/25) Noninfective gastroenteritis and colitis, unspecified (03/25/25) Gastrointestinal hemorrhage, unspecified (03/25/25) Bilious vomiting (03/25/25) Fever, unspecified (03/25/25) Subjective Subjective Feeling better. Tolerating clear liquids. No further bleeding. Objective Data Objective Data Vital Signs: Vital Signs Temp Pulse Resp BP Pulse Ox O2 Del Method 37.1 C 75 14 101/50 L 92 Room Air 03/27/25 06:00 03/27/25 06:00 03/27/25 06:00 03/27/25 06:00 03/27/25 06:00 03/27/25 06:00 Oxygen Delivery Method Room Air Weight: 98.7 kg Body Mass Index (BMI) 37.3 Intake & Output: Intake and Output for Last 24 Hours 03/25/25 03/26/25 03/27/25 23:59 23:59 23:59 Intake Total 3796.67 / 3796.67 2099 467.75 / 467.75 Balance 3796.67 / 3796.67 2099 467.75 / 467.75 Lab / Micro Data 03/27/25 08:30 03/27/25 08:30 Physical Exam Const Constitutional Narrative: Up in bed. Nontoxic. Has a clear liquid tray in front of her. HEENT head/scalp atraumatic Resp normal respiratory effort and no retractions Cardio regular rate, regular rhythm and S1 normal heart sound GI GI Narrative: Still tenderness in left upper quadrant but diminished from previous exams. Normal bowel sounds. Neuro Coordination / Balance: [id number] test normal Assessment & Plan Assessment/Plan (1) Colitis: PLAN: infectious v inflammatory v ischemia GI suspects ischemic colitis pt denies abx use in past 3 month (present hospitalization excluded) continue abx w cipro and metronidazole (2) LGI bleed: PLAN: There is very resolved. If due to ischemic colitis I do anticipated overall improving. no plans for endoscopy (3) ABLA (acute blood loss anemia): PLAN: 2/2 GIB. Hg 14.8 down to 11 monitor no need for transfusion PLAN: Plan VTE prophylaxis: SCDs. Disposition: Will advance patient to a transitional diet if she tolerates at that then she can be discharged. Charges/Coding Visit Charges Inpatient E&M: 83492 Subs Hosp L2
[2025-03-27 08:55] LABS: Absolute Lymphocyte Count 1.85 X10^3/uL (0.83-4.51); Absolute Neutrophil Count 7.5 X10^3/uL (2.0-7.7); Basophil# 0.04 X10^3/uL; Basophil% 0.4 % (0-1); Eosinophil# 0.21 X10^3/uL; Eosinophils% 2.1 % (0-5); Hematocrit 32.4 % (37-47); Lymphocyte # 1.85 X10^3/ul (0.83-4.51); Lymphocyte % 18.2 % (19-41); Mean Corpuscular Hgb 30.5 pg (27.0-32.0); Mean Corpuscular Volume 89.8 fL (81-99); Mean Platelet Vol. 10.9 fl (6.2-12.0); Monocyte# 0.57 X10^3/uL; Monocyte% 5.6 % (0-10); NRBC Flagged by Analyzer 0 % (0-5); Neutrophil # 7.45 X10^3/uL (2.7-7.7); Neutrophil % 73.4 % (47-70); Platelet Count 178 K/mm3 (150-450); RBC Distribution Width SD 43.3 fl (35.1-43.9); Red Blood Count 3.61 M/mm3 (4.2-5.4); White Blood Count 10.2 K/mm3 (4.4-11.0)
[2025-03-27 09:23] LABS: Anion Gap 10 (5-15); BUN 5 mg/dL (4-19); BUN/Creat Ratio 6.5 RATIO (10-20); Calcium,Total 8.4 mg/dL (7.6-11.0); Carbon Dioxide 23.2 mmol/L (21.0-32.0); Chloride 109 mmol/L (98-108); Creatinine, Serum 0.71 mg/dL (0.70-1.20); EST Glomerular Filtration Rate 102 (>60); Estimated Creatinine Clearance 105.79 ml/min (50-250); Glucose 91 mg/dL (70-99); Potassium 2.9 mmol/L (3.3-5.1); Sodium Level 142 mmol/L (133-145)
[2025-03-27 09:45] VITALS: BP 101/56; PULSE 86; RESP 16; TEMP 36.8; O2SAT 94
[2025-03-27] MEDS: Docusate Sodium 100 MG Capsule PO (09:49)
[2025-03-27] MEDS: Pregabalin 75 MG Capsule 150 MG PO ×2 (09:50→22:13)
[2025-03-27] MEDS: Potassium Chloride Oral Tablet 20 MEQ 60 MEQ PO (09:50)
[2025-03-27] MEDS: Ciprofloxacin 200 MG/100 ML BAG 100 MG IV ×2 (09:57→22:49)
[2025-03-27] MEDS: Ondansetron 4 MG/2 ML Vial IV ×2 (10:35→17:16)
[2025-03-27] MEDS: Morphine 2 MG/ML Syringe IV (13:20)
[2025-03-27] MEDS: proMETHazine 25 MG/ML Syringe 12.5 MG IM (13:29)
[2025-03-27 15:50] VITALS: BP 108/60; PULSE 85; RESP 15; TEMP 36.7; O2SAT 95
[2025-03-27 20:45] VITALS: BP 116/60; PULSE 90; RESP 14; TEMP 38.7; O2SAT 93
[2025-03-27] MEDS: Pantoprazole Sodium 40 MG in 0.9% Normal Saline (100mL MB+) 100 ML 330 MG IV (22:18)
[2025-03-28 03:35] VITALS: BP 92/58; PULSE 72; RESP 16; TEMP 36.7; O2SAT 94
[2025-03-28] MEDS: Dicyclomine 10 MG Capsule PO ×2 (05:14→11:04)
[2025-03-28] MEDS: 0.9% Saline Lock 10 ML Syringe IV ×2 (05:15→11:04)
[2025-03-28] MEDS: metroNIDAZOLE 500 MG/100 ML BAG 100 MG IV ×2 (05:15→15:05)
[2025-03-28 09:44] VITALS: BP 98/61; PULSE 79; RESP 12; TEMP 37.1; O2SAT 91
[2025-03-28] MEDS: Pregabalin 75 MG Capsule 150 MG PO (09:54)
[2025-03-28] MEDS: Ciprofloxacin 200 MG/100 ML BAG 100 MG IV (09:55)
[2025-03-28] MEDS: Docusate Sodium 100 MG Capsule PO (09:55)
[2025-03-28] MEDS: Acetaminophen 325 MG Tablet 650 MG PO (09:58)
[2025-03-28 11:20] LABS: Absolute Lymphocyte Count 1.24 X10^3/uL (0.83-4.51); Absolute Neutrophil Count 4.9 X10^3/uL (2.0-7.7); Basophil# 0.04 X10^3/uL; Basophil% 0.6 % (0-1); Eosinophil# 0.24 X10^3/uL; Eosinophils% 3.5 % (0-5); Hematocrit 32.6 % (37-47); Hemoglobin 10.9 g/dL (12.0-15.0); Lymphocyte # 1.24 X10^3/ul (0.83-4.51); Mean Corp Hgb Conc 33.4 g/dL (32-36); Mean Corpuscular Hgb 30.3 pg (27.0-32.0); Mean Corpuscular Volume 90.6 fL (81-99); Mean Platelet Vol. 10.6 fl (6.2-12.0); Monocyte# 0.47 X10^3/uL; Monocyte% 6.8 % (0-10); NRBC Flagged by Analyzer 0 % (0-5); Neutrophil # 4.89 X10^3/uL (2.7-7.7); Neutrophil % 70.8 % (47-70); Platelet Count 196 K/mm3 (150-450); RBC Distribution Width CV 13.2 % (11.6-14.6); White Blood Count 6.9 K/mm3 (4.4-11.0)
[2025-03-28 12:07] LABS: Anion Gap 9 (5-15); BUN 3 mg/dL (4-19); BUN/Creat Ratio 4.8 RATIO (10-20); Calcium,Total 8.7 mg/dL (7.6-11.0); Chloride 110 mmol/L (98-108); Creatinine, Serum 0.67 mg/dL (0.70-1.20); EST Glomerular Filtration Rate 105 (>60); Estimated Creatinine Clearance 112.11 ml/min (50-250); Glucose 117 mg/dL (70-99); Potassium 3.3 mmol/L (3.3-5.1); Sodium Level 143 mmol/L (133-145)
--- NOTE | 2025-03-28 14:00 | PN.HOSP_ITS ---
Reason for Visit Reason for Visit: Diagnoses Sepsis, unspecified organism (03/25/25) Acute posthemorrhagic anemia (03/25/25) Elevated white blood cell count, unspecified (03/25/25) Obesity, unspecified (03/25/25) Hypotension, unspecified (03/25/25) Noninfective gastroenteritis and colitis, unspecified (03/25/25) Gastrointestinal hemorrhage, unspecified (03/25/25) Bilious vomiting (03/25/25) Fever, unspecified (03/25/25) Subjective Subjective Feeling better. No further hematochezia. Objective Data Objective Data Vital Signs: Vital Signs Temp Pulse Resp BP Pulse Ox O2 Del Method 37.1 C 79 12 98/61 91 Room Air 03/28/25 09:44 03/28/25 09:44 03/28/25 09:44 03/28/25 09:44 03/28/25 09:44 03/28/25 10:15 Oxygen Delivery Method Room Air Weight: 98.7 kg Body Mass Index (BMI) 37.3 Intake & Output: Intake and Output for Last 24 Hours 03/26/25 03/27/25 03/28/25 23:59 23:59 23:59 Intake Total 2099 2087.75 / 2087.75 725 / 725 Balance 2099 208.75 / 208.75 725 / 725 Lab / Micro Data 03/28/25 11:13 03/28/25 11:13 Labs: Laboratory Results - last 24 hr 03/28/25 11:13: WBC 6.9, RBC 3.60 L, Hgb 10.9 L, Hct 32.6 L, MCV 90.6, MCH 30.3, MCHC 33.4, RDW Std Deviation 44.0 H, RDW Coeff of [place] 13.2, Plt Count 196, MPV 10.6, Immature Gran % (Auto) 0.300, Neut % (Auto) 70.8 H, Lymph % (Auto) 18.0 L, [place] % (Auto) 6.8, Eos % (Auto) 3.5, Baso % (Auto) 0.6, Absolute Neuts (auto) 4.9, Absolute Lymphs (auto) 1.24, Nucleated RBC % 0, Sodium 143, Potassium 3.3, Chloride 110 H, Carbon Dioxide 25.0, Anion Gap 9, BUN 3 L, Creatinine 0.67 L, Estim Creat Clear Calc 112.11, Est GFR (MDRD) Non-Af 105, BUN/Creatinine Ratio 4.8 L, Glucose 117 H, Calcium 8.7 Micro: Microbiology 03/24/25 23:16 Blood Culture (Wb) - Anticubital Right Blood Culture - Preliminary No growth in 48 hours. 03/24/25 23:12 Blood Culture (Wb) - Anticubital Left Blood Culture - Preliminary No growth in 48 hours. Physical Exam Const alert and no apparent distress Resp normal respiratory effort and no retractions GI non-distended GI Narrative: minimal LUQ tenderness. Assessment & Plan Assessment/Plan (1) Colitis: PLAN: infectious v inflammatory v ischemia GI suspects ischemic colitis pt denies abx use in past 3 month (present hospitalization excluded) continue abx w cipro and metronidazole (2) LGI bleed: PLAN: There is very resolved. If due to ischemic colitis I do anticipated overall improving. no plans for endoscopy (3) ABLA (acute blood loss anemia): PLAN: 2/2 GIB. Hg 14.8 down to 10.9 monitor no need for transfusion PLAN: Plan VTE prophylaxis: SCDs. Disposition: DC home. Continue ABX. Bentyl PRN. PRN oxycodone.
--- NOTE | 2025-03-28 14:04 | PCM.DC.SUM ---
Providers Date of Admission: 03/25/25 Primary Care Physician: Dr. Tequila Lujan MD Consultations 03/25/25 00:58 Consult: Gastroenterology Routine Consulting Provider: [facility] Reason for Consult: Colitis, LGIB with BRBPR, N/V and suspected Sepsis. EMERGENT Consult: No Notified: Yes Date Notified: 03/25/25 Time Notified: 00:32 Method of Notification: ED Physician Initiated Consult: Mine Environmental Engineer / Pulmonary Medicine Routine Consulting Provider: Intensivists/Pulmonary Med Reason for Consult: Colitis, LGIB with BRBPR, N/V and suspected Sepsis. EMERGENT Consult: No Notified: Yes Date Notified: 03/25/25 Time Notified: 02:31 Method of Notification: Answering Service Reason For Visit: COLITIS, LGIB WITH BRBPR, N/V AND POSSIBLE SEPSIS Diagnosis Discharge Diagnosis (1) Colitis: Status: Acute Code(s): K52.9 - Noninfective gastroenteritis and colitis, unspecified Plan: most likley 2/2 ischemic colitis continue abx w cipro and metronidazole (2) LGI bleed: Status: Acute Code(s): K92.2 - Gastrointestinal hemorrhage, unspecified Plan: There is very resolved. If due to ischemic colitis I do anticipated overall improving. no plans for endoscopy (3) ABLA (acute blood loss anemia): Status: Acute Code(s): D62 - Acute posthemorrhagic anemia Plan: 2/2 GIB. Hg 14.8 down to 10.9 monitor no need for transfusion Plan VTE prophylaxis: SCDs. Disposition: [place] home. Continue ABX. Bentyl PRN. PRN oxycodone. Medications at Discharge Home Medications naproxen 250 mg tablet 250 - 500 mg (1 - 2 x 250 mg) PO Q8H PRN PRN MILD PAIN #30 tabs 11/06/20 multivitamin 1 cap PO DAILY suppleme 01/30/23 estradiol 14 mcg/24 hr weekly transdermal patch 1 patch transdermal QWEEK #4 ea 03/15/24 lansoprazole 30 mg capsule,delayed release 30 mg PO DAILY #90 caps 11/11/24 naltrexone 8 mg-bupropion 90 mg tablet,extended release (Contrave) 2 tab PO BID 12 weeks #336 tabs 11/11/24 pregabalin 200 mg capsule (Lyrica) 150 mg PO BID pain 11/11/24 acetaminophen 325 mg tablet 1,000 mg (3.0769 x 325 mg) PO Q8H PRN PRN Pain 1-10 Or Fever #0 tabs 03/28/25 ciprofloxacin HCl 500 mg tablet (Cipro) 500 mg PO BID #14 tabs 03/28/25 dicyclomine 10 mg capsule 10 mg PO Q6 PRN abdominal cramping #30 caps 03/28/25 metronidazole 500 mg tablet 500 mg PO Q8H #21 tabs 03/28/25 Hospital Course Operations None Procedures None Summary of Care Provided Minutes Spent on Discharge: 35 Hospital Course: Is a 52-year-old female presents with acute abdominal pain and hematochezia. CAT scan showed colitis on the left with no obstruction. Patient was seen by gastroenterology and felt this was ischemic colitis. Recommended just antibiotics and bowel rest. Also recommending follow-up colonoscopy in 4 to 6 weeks to see about resolution of the colitis. Patient slowly recovered. We did advance her diet and that she did not tolerate that initially but the following day, today, she tolerated that well. Patient will be discharged home in stable condition. Pain is much better. Continue with acetaminophen, Bentyl for pain control. Patient overall doing better.. Patient already on Contrave was has naltrexone and its, so we will hold off on opiates as it would inhibit their effect. Weight / BMI Weight Weight: 98.7 kg Body Mass Index (BMI) 37.3 ABG / Lab / Microbiology Data 03/28/25 11:13 03/28/25 11:13 Laboratory: Laboratory Results - last 24 hr 03/28/25 11:13: WBC 6.9, RBC 3.60 L, Hgb 10.9 L, Hct 32.6 L, MCV 90.6, MCH 30.3, MCHC 33.4, RDW Std Deviation 44.0 H, RDW Coeff of Valente 13.2, Plt Count 196, MPV 10.6, Immature Gran % (Auto) 0.300, Neut % (Auto) 70.8 H, Lymph % (Auto) 18.0 L, [place] % (Auto) 6.8, Eos % (Auto) 3.5, Baso % (Auto) 0.6, Absolute Neuts (auto) 4.9, Absolute Lymphs (auto) 1.24, Nucleated RBC % 0, Sodium 143, Potassium 3.3, Chloride 110 H, Carbon Dioxide 25.0, Anion Gap 9, BUN 3 L, Creatinine 0.67 L, Estim Creat Clear Calc 112.11, Est GFR (MDRD) Non-Af 105, BUN/Creatinine Ratio 4.8 L, Glucose 117 H, Calcium 8.7 Microbiology: Microbiology 03/24/25 23:16 Blood Culture (Wb) - Anticubital Right Blood Culture - Preliminary No growth in 48 hours. 03/24/25 23:12 Blood Culture (Wb) - Anticubital Left Blood Culture - Preliminary No growth in 48 hours. D/C Instructions Discharge Diet: - (Spink diet. Advance as tolerated.) Return to work on: 04/03/25 DC O2, CPAP, BIPAP Needs Home O2 Discharge instructions: No Meaningful Use Info Meaningful Use Meaningful Use Diagnoses (Choose all that apply): None applicable Ischemic Stroke Statin Dosing Therapy Reference: STATIN DOSE THERAPY REFERENCE: * Patients > 75 years receive moderate or high dose statin therapy. * Patients 75 years or YOUNGER should receive HIGH intensity statin dose unless contraindicated. You will be required to document reason for non-treatment if statin daily dose does not meet guidelines. HIGH DOSE STATIN THERAPY DAILY Atorvastatin > than or = to 40 mg Rosuvastatin > than or = to 20 mg Amlodipine + Atorvastatin > than or = to 2.5/40 mg Ezetimibe + Simvastatin 10/80 mg Simvastatin 80mg Discharge Plan Admission Admit Date/Time: 03/25/25 00:30 Primary Reason for Your Visit: Colitis. Attending Provider: Bry Dominguez Primary Care Provider: Tequila Lujan Consulting Providers: Jason Watters; Chad Rosenthal; Lawrence Thomas; Marcus Willard; Prakash Handley; Jason Ferrell; Dano Rojas; Ravindra Bernal; Crystal Sierra; Rj Hurst; Bimal Julian; James Vera; Daya Fofana; Dalton Mendoza; Brooke White; Andrea Shelton; Chang Rahman; Magdiel Naidu; Corbin Palomares; Chencho Pereira; Joey Teran; Adolfo Noe; Robert Kirkpatrick; Pasha Salazar Instructions Patient Instructions: ED Understanding Colitis Additional Instructions / Restrictions: You have what appears to be acute ischemic colitis. Obviously it got better with improvement of pain as well as hematochezia. Dr. Manriquez of gastroenterology recommended continuing with antibiotics. And he would like to see you in 4 to 6 weeks to have a colonoscopy to see about resolution of the colitis. If you have worsening abdominal pain or recurrent bloody stool, contact physician or return to the emergency room. Discharge Orders/Prescriptions Prescriptions: New acetaminophen 325 mg Tablet 1,000 mg PO Q8H PRN PRN (Reason: Pain 1-10 Or Fever) Qty: 0 0RF dicyclomine 10 mg Capsule 10 mg PO Q6 PRN (Reason: abdominal cramping) Qty: 30 0RF ciprofloxacin HCl [Cipro] 500 mg tablet 500 mg PO BID Qty: 14 0RF metronidazole 500 mg tablet 500 mg PO Q8H Qty: 21 0RF Continued pregabalin [Lyrica] 200 mg capsule 150 mg PO BID estradiol 14 mcg/24 hr patch weekly 1 patch transdermal QWEEK Qty: 4 12RF lansoprazole 30 mg capsule,delayed release(DR/EC) 30 mg PO DAILY Qty: 90 3RF Contrave 8-90 mg tablet extended release 2 tab PO BID 84 Days Qty: 336 3RF naproxen 250 MG tablet 250 - 500 mg PO Q8H PRN PRN (Reason: MILD PAIN) Qty: 30 1RF multivitamin Capsule 1 cap PO DAILY Patient Comments: Patient states does not take consistently Referrals / Follow Up: Tequila Lujan MD [Primary Care Provider] - 3-5 Days Chele Manriquez DO [Med Staff - Active Staff] - Within 1 Month Disposition Disposition (needs filled in before D/C Order can be placed): Home, Self Care Charges/Coding Visit Charges Inpatient E&M: 91946 Disch Hosp >30min
--- NOTE | 2025-03-28 14:45 | CASEMGMT ---
Patient has order for discharge. RN CM in to discuss needs at discharge. Patient denies needs or help at discharge. Patient had no further questions or concerns.
--- NOTE | 2025-03-28 15:18 | PHA.DC_ITS ---
Pharmacy [facility] Counseling Pharmacy Service has performed discharge medication reconciliation and counseling for this patient. 1. CIPROFLOXACIN 500MG PO BID X 7 DAYS 2. DICYCLOMINE 10MG PO Q6H PRN ABDOMINAL CRAMPING 3. METRONIDAZOLE 500MG PO Q8 X 7 DAYS The patient's discharge medication list was reviewed for discrepancies and discrepancies were resolved. The patient was counseled on the following discharge medications and changes in medications for homegoing were reviewed. The Reason for Use, instructions for use, and potential side effects were re viewed for all new medications. The patient's questions regarding all of their medications were answered. The patient was able to verbally demonstrate an understanding of their discharge medications. Medications at Discharge Home Medications naproxen 250 mg tablet 250 - 500 mg (1 - 2 x 250 mg) PO Q8H PRN PRN MILD PAIN #30 tabs 11/06/20 multivitamin 1 cap PO DAILY suppleme 01/30/23 estradiol 14 mcg/24 hr weekly transdermal patch 1 patch transdermal QWEEK #4 ea 03/15/24 lansoprazole 30 mg capsule,delayed release 30 mg PO DAILY #90 caps 11/11/24 naltrexone 8 mg-bupropion 90 mg tablet,extended release (Contrave) 2 tab PO BID 12 weeks #336 tabs 11/11/24 pregabalin 200 mg capsule (Lyrica) 150 mg PO BID pain 11/11/24 acetaminophen 325 mg tablet 1,000 mg (3.0769 x 325 mg) PO Q8H PRN PRN Pain 1-10 Or Fever #0 tabs 03/28/25 ciprofloxacin HCl 500 mg tablet (Cipro) 500 mg PO BID #14 tabs 03/28/25 dicyclomine 10 mg capsule 10 mg PO Q6 PRN abdominal cramping #30 caps 03/28/25 metronidazole 500 mg tablet 500 mg PO Q8H #21 tabs 03/28/25
== END 2025-03-28 16:40 | disposition home or self-care (01) | DRG 872 ==
LOC: ED 23:16 → PCU 03-25 00:39
PROVIDERS: Internal Medicine Gastroenterology; Admitting Provider Internal Medicine; Emergency Provider Emergency Medicine; PCP Family Medicine; Referring Provider Emergency Medicine
DX: A41.9 Sepsis, unspecified organism (principal); K55.9 Vascular disorder of intestine, unspecified; D62 Acute posthemorrhagic anemia; K92.1 Melena; E66.9 Obesity, unspecified; K21.9 Gastro-esophageal reflux disease without esophagitis; R11.14 Bilious vomiting; Z90.710 Acquired absence of both cervix and uterus; Z68.37 Body mass index [BMI] 37.0-37.9, adult; Z90.722 Acquired absence of ovaries, bilateral
CPT/HCPCS: 36415; 74177; 80048; 80053; 81001; 83605; 83690; 84443; 85014; 85018; 85025; 85610; 85730; 86850; 86900; 86901; 87040; 94668; 94762; 99252; 99284; Q9967; A4216; G0463; J0744; J2405

== ENCOUNTER → 2025-04-24 | Outpatient (CLI) | payer OTHER, SELFPAY ==
--- NOTE | 2025-04-24 14:00 | RAD_ITS ---
PROCEDURE: L/S SPINE MIN 4 VIEWS 04/24/2025 REASON FOR EXAM: BACK PAIN TECHNIQUE: L/S SPINE MIN 4 VIEWS COMPARISON: 01/09/2025 FINDINGS: Mild scoliosis. Facet arthritis L3 through S1. Relatively preserved disc spaces. No abnormal motion with flexion/extension. No acute bone or soft tissue pathology. RAD/L/S Spine Min 4 Views IMPRESSION: Lumbar spine scoliosis and degeneration. Reading Location: [facility]-
== END | disposition home or self-care (01) ==
LOC: RAD 13:36
PROVIDERS: PCP Family Medicine; Referring Provider Orthopaedic Surgery Orthopaedic Surgery of the Spine; Visit Provider Orthopaedic Surgery Orthopaedic Surgery of the Spine
DX: M54.9 Dorsalgia, unspecified (principal)
CPT/HCPCS: 72110

== ENCOUNTER 2025-05-08 07:21 | Day surgery (SDC) | payer OTHER, SELFPAY ==
[2025-04-24 14:47] LABS: Hematocrit 40.3 % (37-47); Hemoglobin 13.5 g/dL (12.0-15.0); Mean Corp Hgb Conc 33.5 g/dL (32-36); Mean Corpuscular Volume 90.4 fL (81-99); Mean Platelet Vol. 11.6 fl (6.2-12.0); Platelet Count 205 K/mm3 (150-450); RBC Distribution Width CV 13.3 % (11.6-14.6); RBC Distribution Width SD 44.2 fl (35.1-43.9); Red Blood Count 4.46 M/mm3 (4.2-5.4); White Blood Count 6.2 K/mm3 (4.4-11.0)
[2025-04-24 15:12] LABS: Anion Gap 13 (5-15); BUN 11 mg/dL (4-19); BUN/Creat Ratio 13.9 RATIO (10-20); Calcium,Total 9.9 mg/dL (7.6-11.0); Carbon Dioxide 22.1 mmol/L (21.0-32.0); Chloride 104 mmol/L (98-108); Glucose 96 mg/dL (70-99); Potassium 3.9 mmol/L (3.3-5.1)
--- NOTE | 2025-04-25 06:49 | EKG12_ITS ---
Test Reason : PRE OP Blood Pressure : */* mmHG Vent. Rate : 88 BPM Atrial Rate : 88 BPM P-R Int : 158 ms QRS Dur : 92 ms QT Int : 384 ms P-R-T Axes : 37 23 57 degrees QTcB Int : 464 ms Normal sinus rhythm Normal ECG Confirmed by Blade White ([id number]), offline editor TOYIN IVEY ([id number]) on 04/26/2025 1:43:55 PM Referred By: Diaz Kaiser Confirmed By: Blade White
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
[2025-05-08] VITALS (9 sets, daily range): BP systolic 81–153; BP diastolic 54–134; PULSE 56–75; RESP 14–18; TEMP 36.1–36.4; O2SAT 89–99; BMI 36.4
--- OUTSIDE RECORDS SUMMARY | 2025-05-08 07:30 | XMS RPT_ITS | CCD ---
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 Tequila Renee Primary Care Provider [phone] Dr. Tequila Renee Referring Provider Dr. Navya Mead Attending Provider [phone] Lisa COLBERT, PA Juan Francisco Tsang Attending Provider MD TEQUILA RENEE Referring MD TEQUILA Prabhakar Primary Care MD TEQUILA Prabhakar Attending MD TEQUILA Prabhakar Referring MD TEQUILA Prabhakar Primary Care MD TEQUILA Prabhakar Attending Dr. Tequila Prabhakar Primary Care Provider Dr. Tequila Renee Referring Provider Dr. Sarwat Romeo Attending Provider Dr. Tequila Renee Other Provider Dr. Prakash Handley Attending Provider [phone] Tequila Renee MD Primary Care Provider [...] Dr. Navya Mead Attending Provider Gloria COLBERT PAElisabet Champagne Attending Provider Cebul, Dr. Donald Mckeon Attending Provider Dr. Belén Ordoñez Attending Provider Cebutobin, Dr. Donald Mckeon Referring Provider Cebul, Dr. Donald Mckeon Other Provider Dr. Tequila Renee Primary Care Provider Dr. Tequila Renee Referring Provider Dr. Navya Mead Attending Provider Dr. Tequila Renee Primary Care Provider Dr. Tequila Renee Referring Provider Dr. Tequila Renee MD Primary Care Provider Dr. Philip Gerber MD Attending Provider Dr. Philip Gerber MD Referring Provider Tai DUNBAR, Dr. Tequila Donato Referring Provider Dr. Navya Mead MD Attending Provider Dr. Navya Mead MD Referring Provider Tequila Renee MD Primary Care Provider Renee MD, Dr. Tequila O Primary Care Provider Buzz DUNBAR, Dr. Palacios Attending Provider Buzz DUNBAR, Dr. Palacios Referring Provider Tai DUNBAR, Dr. Tequila Donato Referring Provider [place] DUNBAR, Dr. Mendosa Attending Provider [phone] [place] DUNBAR, Dr. Mendosa Referring Provider Catarino RIVERA, Dr. Londono Referring Provider [phone] Catarino RIVERA, Dr. Londono Emergency Provider de Oracio DO, Dr. Gomez Admit Provider Unavail able de Oracio RIVERA, Dr. Gomez Attending Provider Unav ailable de Oracio DO, Dr. Gomez Other Provider Unavail able Alberto RIVERA, Dr. Londono Attending Provider Galo DUNBAR, Dr. Bonilla Other Provider Martha DUNBAR, Dr. Bravo Other Provider Sudheer DUNBAR, Dr. Velazquez Other Provider Ender RIVERA, Dr. Randall Other Provider Ghassan DUNBAR, Dr. Jason Randall Other Provider Crystal DUNBAR, Dr. Matson Other Provider Dolores DUNBAR, Dr. Waite Other Provider Mariela DUNBAR, Dr. Rojas Other Provider [phone] Natali DUNBAR, Dr. De La Rosa Other Provider [phone] Bimal Julian MD Other Provider Dr. James Vera MD Other Provider [phone] Daya Fofana MD Other Provider Dr. Dalton Mendoza MD Other Provider Unavailabl rahel White MD, Dr. Cox Other Provider Nikita DUNBAR, Dr. Mendez Other Provider [phone] Josiah DUNBAR, Dr. Downing Other Provider [phone] Elysia DUNBAR, Dr. Veloz Other Provider Marielle RIVERA, Dr. Alaniz Other Provider [phone] Kelli DUNBAR, Dr. Paiz Other Provider [phone] Megan Teran MD, Dr. Cook Other Provider Kusum RIVERA, Dr. Mata Other Provider Casimiro DUNBAR, Dr. Jones Other Provider [phone] Martin DUNBAR, Dr. Pak Other Provider Alberto RIVERA, Dr. Londono Other Provider Declan RIVERA, Dr. Elaine Attending Provider Pravin KING, Yissel Unavailable TEQUILA RENEE Attending Unavailable TEQUILA RENEE Primary Care Unavailable TEQUILA RENEE Attending Unavailable TEQUILA RENEE Primary Care Unavailable Darcie Heard Attending Provider Myles DUNBAR, Dr. Alcazar Attending Provider [phone] Myles DUNBAR, Dr. Alcazar Referring Provider Tequila Renee Primary Care Unavailable Tequila Renee Referring Unavailable Ottoniel Bueno Attending Unavailable Bry Toribio Referring Unavailable Bry Dominguez Attending Unavailable Tequila Renee Primary Care Unavailable Jason Watters Admitting Unavailable Chad Rosenthal Consulting Unavailable Lawrence Thomas Consulting Unavailable Marcus Willard Consulting Unavailable Prakash Handley Consulting Unavailable Jason Ferrell Consulting Unavailable Dano Rojas Consulting Unavailable Ravindra Bernal Consulting Unavailable Crystal Sierra Consulting Unavailab Rj Myles Consulting Unavailable Bimal Julian Consulting Unavailable James Vera Consulting Unavailable Daya Fofana Consulting Unavailable Dalton Mendoza Consulting Unavailable Brooke White Consulting Unavailable Nataliia Sheltontam Consulting Unavailable Chang Rahman Consulting Unavailable Magdiel Naidu Consulting Unavailable Corbin Palomares Consulting Unavailable Chencho Pereira Consulting Unavailable Joey Teran Consulting Unavailable Adolof Noe Consulting Unavailable Robert Kirkpatrick Consulting Unavailable Pasha Salazar Consulting Unavailable Jason Watters Consulting Unavailable Bry Dominguez Consulting Unavailable Jason Watters Attending Unavailable Declan, Chele Attending Unavailable Renee, Tequila O Primary Care Unavailable Buzz, Philip Attending Unavailable Buzz, Philip Referring Unavailable Renee, Tequila O Primary Care Unavailable Buzz, Philip Attending Unavailable Buzz, Philip Referring Unavailable Buzz, Philip Referring Unavailable Buzz, Philip Attending Unavailable Renee, Tequila O Primary Care Unavailable Renee, Tequila O Primary Care Unavailable Buzz, Philip Referring Unavailable Buzz, Philip Attending Unavailable Renee, Tequila O Primary Care Unavailable Diaz Kaiser Attending Unavailable Diaz Kaiser Referring Unavailable Renee, Tequila O Primary Care Unavailable Renee, Tequila O Referring Unavailable Kasey Watters Attending Unavailable Renee, Tequila O Primary Care Unavailable Renee, Tequila O Referring Unavailable Botson, Navya Attending Unavailable Renee, Tequila O Primary Care Unavailable Renee, Tequila O Referring Unavailable Navya Mead Attending Unavailable Renee, Tequila O Primary Care Unavailable Renee, Tequila O Referring Unavailable Yvetteony, Navya Attending Unavailable Renee, Tequila O Primary Care Unavailable Yvetteony, Navya Attending Unavailable YvetteonyNavya Referring Unavailable Renee, Tequila O Primary Care Unavailable Ottoniel Bueno Attending Unavailable Ottoniel Bueno Referring Unavailable Renee, Tequila O Primary Care Unavailable [place], Navya Attending Unavailable [place], Navya Referring Unavailable Renee, Tequila O Primary Care Unavailable Declan, Chele Attending Unavailable Bry Toribio Referring Unavailable Bry Dominguez Attending Unavailable Tai, Tequila O Primary Care Unavailable Jason Watters Admitting Unavailable Jason Watters Consulting Unavailable Chad Rosenthal Consulting Unavailable Lawrence Thomas Consulting Unavailable Marcus Willard Consulting Unavailable Prakash Handley Consulting Unavailable Jason Ferrell Consulting Unavailable Dnao Rojas Consulting Unavailable Ravindra Bernal Consulting Unavailable Crystal Sierra Consulting UnavailRj Perez Consulting Unavailable Bimal Julian Consulting Unavailable James Vera Consulting Unavailable Daya Fofana Consulting Unavailable Dalton Mendoza Consulting Unavailable Brooke White Consulting Unavailable Andrea Shelton Consulting Unavailable Chang Rahman Consulting Unavailable Magdiel Naidu Consulting Unavailable Corbin Palomares Consulting Unavailable Chencho Pereira Consulting Unavailable Joey Teran Consulting Unavailable Adolfo Noe Consulting Unavailable Robert Kirkpatrick Consulting Unavailable Pasha Salazar Consulting Unavailable Tequila Renee Primary Care Unavailable Philip Gerber Referring Unavailable Philip Gerber Attending Unavailable Tequila Renee Primary Care Unavailable Tequila Renee Referring Unavailable Navya Mead Attending Unavailable Tequila Renee Referring Unavailable Tequila Renee Primary Care Unavailable Navya Mead Attending Unavailable Tequila Renee Primary Care Unavailable Tequila Renee Referring Unavailable Darcie Burden Attending Unavailable Allergies Allergy Classification Reported Allergen(s) Allergy Type Date of Onset Reaction(s) Facility (20 sources) morphine; Translations: [morphine] Drug Allergy 09-02-2022 Unknown [facility] Repository (7 sources) Morphine; Translations: [Duramorph SOLN] Drug Allergy [facility] 205 DO Work Phone: Medications Current Medications Medication Drug Class(es) Dates Sig (Normalized) Sig (Original) acetaminophen 325 mg oral tablet (13 sources) Start: 03-28-2025 take 1-10 tablets by mouth every eight hours as needed for pain Acetaminophen 325 mg Tablet Active 1000 mg PO EVERY 8 HOURS NEEDED as needed for Pain 1-10 Or Fever 0 0 March 28, 2025 2:10pm Start: 03-24-2024 End: 03-25-2025 Acetaminophen (Acetaminophen Pain Relief) 500 mg tablet Discontinued 1000 mg PO EVERY 6 HOURS as needed for pain March 24, 2024 12:00am March 25, 2025 1:20am acetaminophen 325 mg / oxyCODONE hydrochloride 5 mg oral tablet (20 sources) Opioid Agonist Start: 04-21-2025 Oxycodone-Acet aminophen 5-325 mg tablet Active 1 {tbl} PO 3 TIMES DAILY NEEDED as needed for pain April 21, 2025 12:00am Start: 12-20-2024 oxyCODONE-acet aminophen (Percocet) 5-325 mg tablet 12/20/2024 Active Start: 11-06-2020 End: 11-13-2020 Oxycodone-Acetaminophen 1 TA BLET tablet Discontinued 1 - 2 {tbl} PO EVERY 6 HOURS NEEDED as needed for Pain 15 7 0 November 06, 2020 November 12, 2020 1:00am November 13, 2020 1:03am Other acute postprocedural pain Start: 11-06-2020 End: 11-13-2020 take 1 tablet by mouth every six hours as needed Oxycodone-Acetaminophen Discontinued 1 - 2 TABLET PO EVERY 6 HOURS NEEDED 15 7 November 06, 2020 November 13, 2020 12:03am benzonatate 200 mg oral capsule (4 sources) Non-narcotic Antitussive Start: 09-02-2022 take 200 mg by mouth three times daily Benzonatate Active 200 MG PO THREE TIMES A DAY September 02, 2022 1:00am cyclobenzaprine hydrochloride 10 mg oral tablet (2 sources) Muscle Relaxant Start: 12-20-2024 cyclobenzaprine (Flexeril) 10 mg tablet 12/20/2024 Active dicyclomine hydrochloride 10 mg oral capsule (8 sources) Anticholinergic Start: 03-28-2025 End: 04-17-2025 take 1 capsule by mouth every six hours as needed Dicyclomine 10 mg capsule Active 10 mg PO EVERY 6 HOURS as needed for abdominal cramping 30 0 April 17, 2025 11:30am docusate sodium 50 mg oral capsule (3 sources) Start: 04-17-2025 take 1 capsule by mouth once daily Docusate Sodium 50 mg capsule Active 50 mg PO daily April 17, 2025 12:00am 168 hr estradiol 0.830229 mg/hr transdermal system (20 sources) Estrogen Start: 01-20-2025 Menostar 14 mcg/24 hr 01/20/2025 Active Start: 03-15-2024 End: 04-25-2025 Estradiol 14 mcg/24 hr patch weekly Active 1 NMA TD EVERY WEEK 4 April 25, 2025 9:19am Start: 07-24-2022 End: 03-15-2024 Estradiol 0.1 mg/24 [...] mg by mouth three times daily Evening [place] Oil Active 500 MG PO THREE TIMES A DAY July 24, 2022 12:00am give with meal/snack fluconazole 150 mg oral tablet (20 sources) Azole Antifungal Start: 03-24-2025 take 1 tablet by mouth once daily Fluconazole 150 mg tablet Active 150 mg PO DAILY 1 March 24, 2025 12:00am Start: 07-31-2023 End: 09-07-2023 Fluconazole 150 mg tablet Discontinued 150 mg PO Every 3 Days 2 3 July 31, 2023 12:00am September 07, 2023 3:04pm Start: 04-20-2020 End: 07-05-2020 take 1 tablet by mouth once daily Fluconazole 100 MG tablet Discontinued 100 mg PO DAILY 1 April 20, 2020 12:00am July 05, 2020 11:29am LORazepam 0.5 mg oral tablet (2 sources) Benzodiazepine Start: 08-20-2023 End: 03-30-2025 take 1 tablet by mouth three times daily as needed LORazepam (Ativan) 0.5 mg tablet Indications: Grieving Take 1 tablet (0.5 mg) by mouth 3 times a day as needed (May cause sedation). 30 tablet 08/20/2023 03/30/2025 Discontinued (Med List Cleanup) Multivitamin Capsule (9 sources) Start: 01-30-2023 Multivitamin Capsule Active 1 NMA PO DAILY January 30, 2023 12:00am suppleme Start: 01-30-2023 Multivitamin C apsule Active 1 NMA PO DAILY January 30, [...] HOURS NEEDED as needed for MILD PAIN 03 11November 06, 2020 1:00am Start: 07-26-2019 End: 04-20-2020 [...] 05, 2013 1:00am July 26, 2019 1:31pm ondansetron 8 mg disintegrating oral tablet (1 source) Serotonin-3 Receptor Antagonist Start: 03-30-2025 End: 04-06-2025 take 1 tablet by mouth every eight hours as needed for nausea and nausea ondansetron ODT (Zofran-ODT) 8 mg disintegrating tablet Indications: Nausea Dissolve 1 tablet (8 mg) in the mouth every 8 hours if needed for nausea or vomiting for up to 7 days. 20 tablet 03/30/2025 04/06/2025 Active predniSONE 10 mg oral tablet (4 sources) [...] 200 mg capsule Active 150 mg PO TWICE A DAY November 11, 2024 10:37am pain Start: 11-11-2024 Pregabalin (Ly dottie) 200 mg [...] release 24hr Discontinued 75 mg PO DAILY 30 12 July 05, 2020 12:00am July 24, 2022 [...] 26, 2019 1:32pm take 1 capsule by [facility] every twenty-four hours Venlafaxine HCl ER 150 MG Oral Capsule Extended Release 24 Hour Quantity: 0 Refills: 0 Ordered: 05-Nov-2020 DO Active Completed/Discontinued Medications Medication Drug Class(es) Dates Sig (Normalized) Sig (Original) acetaminophen 325 mg / HYDROcodone bitartrate 5 mg oral tablet (20 sources) Opioid Agonist Start: 12-02-2017 End: 07-26-2019 Hydrocodone-Acetami nophen 1 TABLET tablet Discontinued 1 {tbl} PO EVERY 6 HOURS NEEDED as needed for Pain 10 3 0 December 02, 2017 1:00am July 26, 2019 1:31pm Acute low back pain without sciatica Low back pain Start: 12-02-2017 End: 07-26-2019 take 1 tablet by mouth every six hours as needed Hydrocodone-Acetaminophen Discontinued 1 TABLET PO EVERY 6 HOURS NEEDED 10 3 December 02, 2017 12:00am July 26, 2019 12:31pm 12 hr buPROPion hydrochloride 90 mg / naltrexone hydrochloride 8 mg extended release oral tablet (20 sources) Opioid Antagonist, Aminoketone Start: 11-11-2024 End: 04-21-2025 Naltrexone-Bupropion (Contrave) 8-90 mg tablet extended release Discontinued 2 {tbl} PO TWICE A DAY 336 84 3 November 11, 2024 1:00am April 21, 2025 3:39pm Start: 03-24-2024 End: 06-20-2024 Naltrexone-Bupropion (Contra ve) 8-90 mg tablet extended release Discontinued 2 {tbl} PO TWICE A DAY March 24, 2024 12:00am June 20, 2024 9:52am Start: 01-30-2023 End: 03-15-2024 Naltrexone-Bupropion (Contra ve) 8-90 mg tablet extended release Discontinued 2 {tbl} PO TWICE A DAY 120 2 December 10, 2023 6:35pm March 15, 2024 2:23pm carBAMazepine 100 mg chewable tablet (20 sources) Mood Stabilizer Start: 01-25-2016 End: 07-26-2019 take 1 tablet by mouth twice daily Carbamazepine 100 MG tablet,chewable Discontinued 100 mg PO TWICE A DAY January 25, 2016 12:00am July 26, 2019 1:32pm celecoxib 200 mg oral capsule (20 sources) Nonsteroidal Anti-inflammatory Drug Start: 04-11-2020 End: 04-20-2020 take 1 capsule by mouth three times daily as needed for pain Celecoxib 200 MG capsule Discontinued 200 mg PO THREE TIMES A DAY as needed for Pain Or Fever April 11, 2020 12:00am April 20, 2020 12:27pm cephalexin 500 mg oral capsule (20 sources) Cephalosporin Antibacterial Start: 11-23-2017 End: 12-03-2017 take 1 capsule by mouth every twelve hours Cephalexin (Keflex) 500 mg capsule Discontinued 500 mg PO Q12H 20 November 23, 2017 1:00am December 02, 2017 1:00am December 03, 2017 1:05am ciprofloxacin 500 mg oral tablet (6 sources) Quinolone Antimicrobial Start: 03-24-2025 End: 04-17-2025 take 1 tablet by mouth twice daily Ciprofloxacin Hcl (Cipro) 500 mg tablet Discontinued 500 mg PO TWICE A DAY March 28, 2025 12:00am April 17, 2025 11:13am 24 hr desvenlafaxine succinate 25 mg extended release oral tablet (9 sources) Serotonin and Norepinephrine Reuptake Inhibitor Start: 03-15-2024 End: 06-20-2024 take 1 tablet by mouth once daily, then take 1 tablet by mouth every twenty-four hours Desvenlafaxine Succinate (Pristiq) 25 mg tablet extended release 24 hr Discontinued 25 mg PO DAILY 30 March 15, 2024 12:00am June 20, 2024 9:52am 168 hr ethinyl estradiol 0.58845 mg/hr / norelgestromin 0.92888 mg/hr transdermal system (20 sources) Progestin, Estrogen Start: 07-26-2019 End: 02-20-2020 Norelgestromin-Ethin .Estradiol (Xulane) 150-35 mcg/24 hr patch weekly Discontinued 1 NMA TD Q7D 4 September 15, 2019 11:18am February 20, 2020 [...] Tequila Renee MD Start : 01-Dec-2022 Active ibuprofen 800 mg oral tablet (20 sources) Nonsteroidal Anti-inflammatory Drug Start: 01-25-2016 End: 04-20-2020 take 1 tablet by mouth three times daily as needed for pain Ibuprofen 800 MG tablet Discontinued 800 mg PO 3 TIMES DAILY NEEDED as needed for Mild-Mod Pain (1-5/10) January 25, 2016 12:00am April 20, 2020 12:27pm indomethacin 50 mg oral capsule (20 sources) Nonsteroidal Anti-inflammatory Drug Start: 07-26-2019 End: [...] Discontinued 15 mg IM every 2 months 1 August 31, 2020 9:38am July 24, 2022 3:49pm metroNIDAZOLE 500 mg oral tablet (6 sources) Nitroimidazole Antimicrobial Start: 03-24-2025 End: 04-17-2025 take 1 tablet by mouth every eight hours Metronidazole 500 mg tablet Discontinued 500 mg PO Q8H 21 0 March 28, 2025 12:00am April 17, 2025 11:13am Start: 03-24-2025 take 1 tablet by demond th every six hours Metronidazole 500 mg tablet Active 500 mg PO EVERY 6 HOURS 40 March 24, 2025 12:00am topiramate 25 mg oral tablet (9 sources) Start: 12-10-2023 End: 03-15-2024 take 1 tablet by mouth twice daily before breakfast Topiramate (Topamax) 25 mg tablet Discontinued 25 mg PO TWICE A DAY 60 December 10, 2023 1:00am March 15, 2024 2:07pm take before breakfast and before dinner Turmeric extract (20 sources) Start: 07-24-2022 End: 09-07-2023 take 1 [...] Active Problems Problem Classification Problem Date Documented Da te Episodic/Chronic Abdominal pain (20 sources) Chronic pelvic pain of female; Translations: [Pelvic and perineal pain] Onset: 5 07-24-2022 Episodic Comment on above: nl pelvic us. suspec t endometriosis. pain resolved with depot lupron. plan laparoscopic BSO for definitive therapy Acute posthemorrhagic anemia (9 sources) Acute posthemorrhagic anemia; Translations: [Acute posthemorrhagic anemia] Onset: 5 03-25-2025 Episodic Adjustment disorders (20 sources) Grief finding; Translations: [Adjustment disorder with depressed mood] 08-27-2023 Chronic Comment on above: support given, couns eling referral, pristiq ordered Diseases of mouth; excluding dental (3 sources) Disorder of lip; Translations: [Diseases of lips] Episodic Diseases of white blood cells (9 sources) Leukocytosis; Translations: [Elevated white blood cell count, unspecified] Onset: 5 03-25-2025 Chronic Esophageal disorders (20 sources) Gastroesophageal reflux disease; Translations: [Esophageal reflux] Onset: 3 01-13-2023 Chronic Fever of unknown origin (10 sources) Fever; Translations: [Fever, unspecified] Onset: 5 03-24-2025 Episodic Gastrointestinal hemorrhage (18 sources) Lower gastrointestinal hemorrhage; Translations: [Gastrointestinal hemorrhage, unspecified] Onset: 5 03-24-2025 Episodic Genitourinary symptoms and ill-defined conditions (20 sources) Urinary incontinence; Translations: [Unspecified urinary incontinence] Onset: 5 Chronic Comment on above: ua and culture sent, discussed attain and apex device. PFPT referral Menopausal disorders (20 sources) Menopausal syndrome; Translations: [Menopausal and female climacteric states] Onset: 5 Chronic Comment on above: patch increased dosi ng, discussed possible progesterone if needed. Menstrual disorders (20 sources) Irregular periods; Translations: [Irregular menstruation, unspecified] 04-20-2020 Chronic Miscellaneous mental health disorders (20 sources) Binge eating disorder; Translations: [Binge eating disorder] 01-25-2023 Chronic Comment on above: counseling recommend ations, declines vyvanse, plan contrave. Mood disorders (20 sources) Depressive disorder; Translations: [Depressive disorder, not elsewhere classified] Onset: 3 Chronic Comment on above: s/p effexor. certified alcohol drug counselor ing encouraged- referral to [facility]. started Pristiq. Mycoses (20 sources) Onychomycosis of toenails; Translations: [Tinea unguium] 07-05-2020 Episodic Nausea and vomiting (20 sources) Nausea; Translations: [Nausea] Onset: 5 09-07-2023 Episodic Noninfectious gastroenteritis (10 sources) Colitis; Translations: [Noninfective gastroenteritis and colitis, unspecified] Onset: 5 03-24-2025 Episodic Osteoarthritis (20 sources) Osteoarthritis; Translations: [Unspecified osteoarthritis, unspecified site] 01-25-2023 Chronic Comment on above: weight loss recommen ded Other acquired deformities (3 sources) Scoliosis deformity of spine; Translations: [Scoliosis, unspecified] 04-28-2025 Chronic Other circulatory disease (8 sources) Low blood pressure; Translations: [Hypotension, unspecified] 03-25-2025 Episodic Other circulatory disease (1 source) Hypotension, unspecified; Translations: [Hypotension, unspecified] Onset: 5 Episodic Other congenital anomalies (20 sources) Herniated urinary bladder 01-31-2025 Chronic Comment on above: fit with size four r ing with support will return for placement, recommend PFPT Other connective tissue disease (4 sources) Synovial cyst of lumbar spine; Translations: [Other bursal cyst, other site] 04-28-2025 Episodic Other female genital disorders (20 sources) Mittelschmerz; 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] 04-20-2020 Chronic Comment on above: reviewed options rec ommend continuous patch fu in 2-3 months Other lower respiratory disease (5 sources) Dyspnea; Translations: [Other respiratory abnormalities] 01-13-2023 Episodic Other lower respiratory disease (1 source) Chronic cough; Translations: [Chronic cough] 01-13-2023 Episodic Other lower respiratory disease (20 sources) Snoring; Translations: [Snoring] 01-25-2023 Episodic Comment on above: Impression:1.Primary snoring, with snore arousals, but no witnessed apneas and with excessive daytime sleepiness Vail score of 12, and woman with a [...] abnormalities] 01-23-2023 Episodic Other nervous system disorders (10 sources) Complex regional pain syndrome; Translations: [Reflex sympathetic dystrophy, unspecified] Onset: 3 11-14-2022 Chronic Other nutritional; endocrine; and metabolic disorders (20 sources) Body mass index 30+ - obesity; Translations: [Body Mass Index 37.0-37.9, adult] Onset: 3 Resolved: 3 01-13-2023 Chronic Comment on above: SW- 227 at home, 10/11, 230 previously 01/25.Initial goal- s/p 5% with nutritional and medication intervention recommendations.initial obesity assessment lab panel ordered nl EKG Other nutritional; endocrine; and metabolic disorders (4 sources) Severe obesity; Translations: [Morbid (severe) obesity due to excess calories] Onset: 3 01-13-2023 Chronic Other nutritional; endocrine; and metabolic disorders (20 sources) Obesity; Translations: [Other obesity] 01-25-2023 Chronic Comment on above: Nutrition plan: Chef nutritional plan. Medication plan: contrave bid control- [...] sources) Other obesity; Translations: [Obesity, unspecified] Onset: 5 01-23-2023 Chronic Other nutritional; endocrine; and metabolic disorders (5 sources) Body mass index (BMI) 37.0-37.9, adult; Translations: [Body Mass Index 37.0-37.9, adult] 02-06-2023 Chronic Other nutritional; endocrine; and metabolic disorders (8 sources) Body mass index (BMI) 31.0-31.9, adult; Translations: [Body Mass Index 31.0-31.9, adult] 05-22-2023 Chronic Other nutritional; endocrine; and metabolic disorders (1 source) Obesity, unspecified; Translations: [Obesity, unspecified] Onset: 5 Chronic Other nutritional; endocrine; and metabolic disorders (4 sources) Weight gain; Translations: [Abnormal weight gain] Episodic Other nutritional; endocrine; and metabolic disorders (14 sources) Overweight in adulthood with body mass index of 25 or more but less than 30; Translations: [Body mass index (BMI) 27.0-27.9, adult] 08-27-2023 Episodic Other nutritional; endocrine; and metabolic disorders (6 sources) Body mass index (BMI) 27.0-27.9, adult; Translations: [Body Mass Index 27.0-27.9, adult] 08-26-2023 Episodic Other skin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 above: Performed By: #### L 500.4050, L501.2450, L100.0100 #### [facility] [address] [place], [address] Basophils/100 WBC (Bld) 0.6 % Normal 0-1 [facility] Comment on above: Performed By: #### L 500.4050, L501.2450, L100.0100 #### [facility] [address] [place], [address] Eosinophils/100 WBC (Bld) 3.5 % Normal 0-5 [facility] Comment on above: Performed By: #### L 500.4050, L501.2450, L100.0100 #### [facility] [address] [place], [address] Erythrocyte distribution width (RBC) [Ratio] 13.2 % Normal 11.6-14.6 [facility] Comment on above: Performed By: #### L 500.4050, L501.2450, L100.0100 #### [facility] [address] [place], [address] Hematocrit (Bld) [Volume fraction] 32.6 % Low 37-47 [facility] Comment on above: Performed By: #### L 500.4050, L501.2450, L100.0100 #### [facility] [address] [place], [address] Hemoglobin (Bld) [Mass/Vol] 10.9 g/dL Low 12.0-15.0 [facility] Comment on above: Performed By: #### L 500.4050, L501.2450, L100.0100 #### [facility] [address] [place], [address] IG% 0.300 Normal 0.0-0.9 [facility] Comment on above: Result Comment: IG% - Immature Granulocytes (promyelocytes, myelocytes and metamyelocytes) > 1% indicates that a LEFT SHIFT is Present. Performed By: #### L 500.4050, L501.2450, L100.0100 #### [facility] [address] [place], [address] Lymphocytes/100 WBC (Bld) 18.0 % Low 19-41 [facility] Comment on above: Performed By: #### L 500.4050, L501.2450, L100.0100 #### [facility] [address] [place], [address] MCH (RBC) [Entitic mass] 30.3 pg Normal 27.0-32.0 [facility] Comment on above: Performed By: #### L 500.4050, L501.2450, L100.0100 #### [facility] [address] [place], [address] MCHC (RBC) [Mass/Vol] 33.4 g/dL Normal 32-36 [facility] Comment on above: Performed By: #### L 500.4050, L501.2450, L100.0100 #### [facility] [address] [place], [address] MCV (RBC) [Entitic vol] 90.6 fL Normal 81-99 [facility] Comment on above: Performed By: #### L 500.4050, L501.2450, L100.0100 #### [facility] [address] [place], [address] Monocytes/100 WBC (Bld) 6.8 % Normal 0-10 [facility] Comment on above: Performed By: #### L 500.4050, L501.2450, L100.0100 #### [facility] [address] [place], [address] Neutrophils/100 WBC (Bld) 70.8 % High 47-70 [facility] Comment on above: Performed By: #### L 500.4050, L501.2450, L100.0100 #### [facility] [address] [place], [address] Nucleated RBC (Bld) [#/Vol] 0 10*3/uL Normal 0-5 [facility] Comment on above: Performed By: #### L 500.4050, L501.2450, L100.0100 #### [facility] [address] [place], [address] Platelet mean volume (Bld) [Entitic vol] 10.6 fL Normal 6.2-12.0 [facility] Comment on above: Performed By: #### L 500.4050, L501.2450, L100.0100 #### [facility] [address] [place], [address] Platelets (Bld) [#/Vol] 196 10*3/uL Normal 150-450 [facility] Comment on above: Performed By: #### L 500.4050, L501.2450, L100.0100 #### [facility] [address] [place], [address] RBC (Bld) [#/Vol] 3.60 10*6/uL Low 4.2-5.4 [facility] Comment on above: Performed By: #### L 500.4050, L501.2450, L100.0100 #### [facility] [address] [place], [address] RDW SD 44.0 fl High 35.1-43.9 [facility] Comment on above: Performed By: #### L 500.4050, L501.2450, L100.0100 #### [facility] [address] [place], [address] WBC (Bld) [#/Vol] 6.9 10*3/uL Normal 4.4-11.0 [facility] Comment on above: Performed By: #### L 500.4050, L501.2450, L100.0100 #### [facility] [address] [place], [address] Carbon dioxide, total [Moles /volume] in Central venous bloodOrdered By: Bry Dominguez on 03-28-2025 CO2 [Moles/Vol] 25.0 mmol/L 21.0-32.0 [facility] Chloride assayOrdered By: Dannie Dominguez on 03-28-2025 Chloride [Moles/Vol] 110 mmol/L High 98-108 [facility] Eosinophil percentageOrdered By: Bry Dominguez on 03-28-2025 Eosinophils/100 WBC (Bld) 3.5 % 0-5 [facility] Erythrocyte distribution wid th ratioOrdered By: Bry Dominguez on 03-28-2025 Erythrocyte distribution width (RBC) [Ratio] 13.2 % 11.6-14.6 [facility] Erythrocyte distribution wid th standard deviationOrdered By: Bry Dominguez on 03-28-2025 Erythrocyte distribution width (RBC) [Ratio] 44.0 fl High 35.1-43.9 [facility] Glomerular filtration rate ( GFR) estimation/1.73 sq m using serum, plasma, or whole bOrdered By: Bry Dominguez on 03-28-2025 GFR/1.73 sq M.predicted among non-blacks MDRD (S/P/Bld) [Vol rate/Area] 105 mL/min/{1.73_m2} >60 [facility] Comment on above: mL/min/1.73m2 CKD-EP I Creatinine Equation (2020) Hematocrit Auto (Bld) [Volum e fraction]Ordered By: Bry Dominguez on 03-28-2025 Hematocrit (Bld) [Volume fraction] 32.6 % Low 37-47 [facility] Hemoglobin measurementOrdere d By: Bry Dominguez on 03-28-2025 Hemoglobin (Bld) [Mass/Vol] 10.9 g/dL Low 12.0-15.0 [facility] Immature granulocytes/100 WB C Auto (Bld)Ordered By: Bry Dominguez on 03-28-2025 Immature granulocytes/100 WBC (Bld) 0.300 % 0.0-0.9 [facility] Comment on above: IG% - Immature Granu locytes (promyelocytes, myelocytes and metamyelocytes) > 1% indicates that a LEFT SHIFT is Present. MCV (mean corpuscular volume ) determinationOrdered By: Bry Dominguez on 03-28-2025 MCV (RBC) [Entitic vol] 90.6 fL 81-99 [facility] Mean corpuscular hemoglobin (MCH) determinationOrdered By: Bry Dominguez on 03-28-2025 MCH (RBC) [Entitic mass] 30.3 pg 27.0-32.0 [facility] Mean corpuscular hemoglobin concentration (MCHC) determinationOrdered By: Bry Dominguez on 03-28-2025 MCHC (RBC) [Mass/Vol] 33.4 g/dL 32-36 [facility] Mean platelet volume determi nationOrdered By: Bry Dominguez on 03-28-2025 Platelet mean volume (Bld) [Entitic vol] 10.6 fL 6.2-12.0 [facility] Monocyte percentageOrdered B y: Bry Dominguez on 03-28-2025 Monocytes/100 WBC (Bld) 6.8 % 0-10 [facility] Neutrophil percentageOrdered By: Bry Dominguez on 03-28-2025 Neutrophils/100 WBC (Bld) 70.8 % High 47-70 [facility] Nucleated red blood cell per centageOrdered By: Bry Dominguez on 03-28-2025 Nucleated RBC/100 WBC (Bld) [Ratio] 0 % 0-5 [facility] Platelet countOrdered By: Dannie Dominguez on 03-28-2025 Platelets (Bld) [#/Vol] 196 10*3/uL 150-450 [facility] Potassium measurement (mass/ volume)Ordered By: Bry Dominguez on 03-28-2025 Potassium (Unsp spec) [Mass/Vol] 3.3 mmol/L 3.3-5.1 [facility] RBC Auto (Bld) [#/Vol]Ordere d By: Bry Dominguez on 03-28-2025 RBC (Bld) [#/Vol] 3.60 10*6/uL Low 4.2-5.4 [facility] Serum creatinine measurement (mass/volume)Ordered By: Bry Dominguez on 03-28-2025 Creatinine [Mass/Vol] 0.67 mg/dL Low 0.70-1.20 [facility] Serum glucose measurement (m ass/volume)Ordered By: Bry Dominguez on 03-28-2025 Glucose [Mass/Vol] 117 mg/dL High 70-99 [facility] Serum or plasma calcium elizabet urement (mass/volume)Ordered By: Bry Dominguez on 03-28-2025 Calcium [Mass/Vol] 8.7 mg/dL 7.6-11.0 [facility] Serum or plasma urea nitroge n measurement (mass/volume)Ordered By: Bry Dominguez on 03-28-2025 Urea nitrogen [Mass/Vol] 3 mg/dL Low 4-19 [facility] Sodium levelOrdered By: Bry Dominguez on 03-28-2025 Sodium [Moles/Vol] 143 mmol/L 133-145 [facility] White blood cell (WBC) count Ordered By: Bry Dominguez on 03-28-2025 WBC (Bld) [#/Vol] 6.9 10*3/uL 4.4-11.0 [facility] Basic Metabolic Profile (BMP )on 03-27-2025 BUN/CRE 6.5 RATIO Low 10-20 [facility] Comment on above: Performed By: #### L 500.2500, L100.0100 #### [facility] [address] [place], [address] Calcium [Mass/Vol] 8.4 mg/dL Normal 7.6-11.0 [facility] Comment on above: Performed By: #### L 500.2500, L100.0100 #### [facility] [address] [place], [address] Chloride [Moles/Vol] 109 mmol/L High 98-108 [facility] Comment on above: Performed By: #### L 500.2500, L100.0100 #### [facility] [address] [place], [address] CO2 [Moles/Vol] 23.2 mmol/L Normal 21.0-32.0 [facility] Comment on above: Performed By: #### L 500.2500, L100.0100 #### [facility] [address] [place], [address] Creatinine [Mass/Vol] 0.71 mg/dL Normal 0.70-1.20 [facility] Comment on above: Performed By: #### L 500.2500, L100.0100 #### [facility] [address] [place], [address] ECRCL 105.79 ml/min Normal 50-250 [facility] Comment on above: Performed By: #### L 500.2500, L100.0100 #### [facility] [address] [place], [address] GAP 10 Normal 5-15 [facility] Comment on above: Performed By: #### L 500.2500, L100.0100 #### [facility] [address] [place], [address] GFR/1.73 sq M.predicted among non-blacks MDRD (S/P/Bld) [Vol rate/Area] 102 mL/min/{1.73_m2} Normal >60 [facility] Comment on above: Result Comment: mL/m in/1.73m2 CKD-EPI Creatinine Equation (2020) Performed By: #### L 500.2500, L100.0100 #### [facility] [address] [place], [address] Glucose [Mass/Vol] 91 mg/dL Normal 70-99 [facility] Comment on above: Performed By: #### L 500.2500, L100.0100 #### [facility] [address] [place], [address] Potassium [Moles/Vol] 2.9 mmol/L Low 3.3-5.1 [facility] Comment on above: Performed By: #### L 500.2500, L100.0100 #### [facility] [address] [place], [address] Sodium [Moles/Vol] 142 mmol/L Normal 133-145 [facility] Comment on above: Performed By: #### L 500.2500, L100.0100 #### [facility] [address] [place], [address] Urea nitrogen [Mass/Vol] 5 mg/dL Normal 4-19 [facility] Comment on above: Performed By: #### L 500.2500, L100.0100 #### [facility] [address] [place], [address] CBC W/Diff, Automatedon 06-2 -2024 Absolute Lymph 1.85 X10 3/uL Normal 0.83-4.51 [facility] Comment on above: Performed By: #### L 500.2500, L100.0100 #### [facility] [address] [place], [address] Absolute Neut 7.5 X10 3/uL Normal 2.0-7.7 [facility] Comment on above: Performed By: #### L 500.2500, L100.0100 #### [facility] [address] [place], [address] Basophils/100 WBC (Bld) 0.4 % Normal 0-1 [facility] Comment on above: Performed By: #### L 500.2500, L100.0100 #### [facility] [address] [place], [address] Eosinophils/100 WBC (Bld) 2.1 % Normal 0-5 [facility] Comment on above: Performed By: #### L 500.2500, L100.0100 #### [facility] [address] [place], [address] Erythrocyte distribution width (RBC) [Ratio] 13.0 % Normal 11.6-14.6 [facility] Comment on above: Performed By: #### L 500.2500, L100.0100 #### [facility] [address] [place], [address] Hematocrit (Bld) [Volume fraction] 32.4 % Low 37-47 [facility] Comment on above: Performed By: #### L 500.2500, L100.0100 #### [facility] [address] [place], [address] Hemoglobin (Bld) [Mass/Vol] 11.0 g/dL Low 12.0-15.0 [facility] Comment on above: Performed By: #### L 500.2500, L100.0100 #### [facility] [address] [place], [address] IG% 0.300 Normal 0.0-0.9 [facility] Comment on above: Result Comment: IG% - Immature Granulocytes (promyelocytes, myelocytes and metamyelocytes) > 1% indicates that a LEFT SHIFT is Present. Performed By: #### L 500.2500, L100.0100 #### [facility] [address] [place], [address] Lymphocytes/100 WBC (Bld) 18.2 % Low 19-41 [facility] Comment on above: Performed By: #### L 500.2500, L100.0100 #### [facility] [address] [place], [address] MCH (RBC) [Entitic mass] 30.5 pg Normal 27.0-32.0 [facility] Comment on above: Performed By: #### L 500.2500, L100.0100 #### [facility] [address] [place], [address] MCHC (RBC) [Mass/Vol] 34.0 g/dL Normal 32-36 [facility] Comment on above: Performed By: #### L 500.2500, L100.0100 #### [facility] [address] [place], [address] MCV (RBC) [Entitic vol] 89.8 fL Normal 81-99 [facility] Comment on above: Performed By: #### L 500.2500, L100.0100 #### [facility] [address] [place], [address] Monocytes/100 WBC (Bld) 5.6 % Normal 0-10 [facility] Comment on above: Performed By: #### L 500.2500, L100.0100 #### [facility] [facility] [address] [place], [address] Neutrophils/100 WBC (Bld) 73.4 % High 47-70 [facility] Comment on above: Performed By: #### L 500.2500, L100.0100 #### [facility] [address] [place], [address] Nucleated RBC (Bld) [#/Vol] 0 10*3/uL Normal 0-5 [facility] Comment on above: Performed By: #### L 500.2500, L100.0100 #### [facility] [address] [place], [address] Platelet mean volume (Bld) [Entitic vol] 10.9 fL Normal 6.2-12.0 [facility] Comment on above: Performed By: #### L 500.2500, L100.0100 #### [facility] [address] [place], [address] Platelets (Bld) [#/Vol] 178 10*3/uL Normal 150-450 [facility] Comment on above: Performed By: #### L 500.2500, L100.0100 #### [facility] [address] [place], [address] RBC (Bld) [#/Vol] 3.61 10*6/uL Low 4.2-5.4 [facility] Comment on above: Performed By: #### L 500.2500, L100.0100 #### [facility] [address] [place], [address] RDW SD 43.3 fl Normal 35.1-43.9 [facility] Comment on above: Performed By: #### L 500.2500, L100.0100 #### [facility] [address] [place], [address] WBC (Bld) [#/Vol] 10.2 10*3/uL Normal 4.4-11.0 [facility] Comment on above: Performed By: #### L 500.2500, L100.0100 #### [facility] [address] [place], [address] Basic Metabolic Profile (BMP )on 03-26-2025 BUN/CRE 7.0 RATIO Low 10-20 [facility] Comment on above: Performed By: #### L 100.0100, L500.2500 ####[facility] [address] [place], [address] Calcium [Mass/Vol] 8.3 mg/dL Normal 7.6-11.0 [facility] Comment on above: Performed By: #### L 100.0100, L500.2500 ####[facility] [address] [place], [address] Chloride [Moles/Vol] 109 mmol/L High 98-108 [facility] Comment on above: Performed By: #### L 100.0100, L500.2500 ####[facility] [address] [place], [address] CO2 [Moles/Vol] 21.1 mmol/L Normal 21.0-32.0 [facility] Comment on above: Performed By: #### L 100.0100, L500.2500 ####[facility] [address] [place], [address] Creatinine [Mass/Vol] 0.72 mg/dL Normal 0.70-1.20 [facility] Comment on above: Performed By: #### L 100.0100, L500.2500 ####[facility] [address] [place], [address] ECRCL 104.32 ml/min Normal 50-250 [facility] Comment on above: Performed By: #### L 100.0100, L500.2500 ####[facility] [address] [place], [address] GAP 9 Normal 5-15 [facility] Comment on above: Performed By: #### L 100.0100, L500.2500 ####[facility] [address] [place], [address] GFR/1.73 sq M.predicted among non-blacks MDRD (S/P/Bld) [Vol rate/Area] 100 mL/min/{1.73_m2} Normal >60 [facility] Comment on above: Result Comment: mL/m in/1.73m2 CKD-EPI Creatinine Equation (2020) Performed By: #### L 100.0100, L500.2500 ####[facility] [address] [place], [address] Glucose [Mass/Vol] 106 mg/dL High 70-99 [facility] Comment on above: Performed By: #### L 100.0100, L500.2500 ####[facility] [address] [place], [address] Potassium [Moles/Vol] 3.1 mmol/L Low 3.3-5.1 [facility] Comment on above: Performed By: #### L 100.0100, L500.2500 ####[facility] [address] [place], [address] Sodium [Moles/Vol] 140 mmol/L Normal 133-145 [facility] Comment on above: Performed By: #### L 100.0100, L500.2500 ####[facility] [address] [place], [address] Urea nitrogen [Mass/Vol] 5 mg/dL Normal 4-19 [facility] Comment on above: Performed By: #### L 100.0100, L500.2500 ####[facility] [address] [place], [address] CBC W/Diff, Automatedon 06-11 06-2024 Absolute Lymph 1.92 X10 3/uL Normal 0.83-4.51 [facility] Comment on above: Performed By: #### L 100.0100, L500.2500 ####[facility] [address] [place], [address] Absolute Neut 8.4 X10 3/uL High 2.0-7.7 [facility] Comment on above: Performed By: #### L 100.0100, L500.2500 ####[facility] [address] [place], [address] Basophils/100 WBC (Bld) 0.4 % Normal 0-1 [facility] Comment on above: Performed By: #### L 100.0100, L500.2500 ####[facility] [address] [place], [address] Eosinophils/100 WBC (Bld) 0.9 % Normal 0-5 [facility] Comment on above: Performed By: #### L 100.0100, L500.2500 ####[facility] [address] [place], [address] Erythrocyte distribution width (RBC) [Ratio] 13.5 % Normal 11.6-14.6 [facility] Comment on above: Performed By: #### L 100.0100, L500.2500 ####[facility] [address] [place], [address] Hematocrit (Bld) [Volume fraction] 32.6 % Low 37-47 [facility] Comment on above: Performed By: #### L 100.0100, L500.2500 ####[facility] [address] [place], [address] Hemoglobin (Bld) [Mass/Vol] 11.0 g/dL Low 12.0-15.0 [facility] Comment on above: Performed By: #### L 100.0100, L500.2500 ####[facility] [address] [place], [address] IG% 0.400 Normal 0.0-0.9 [facility] Comment on above: Result Comment: IG% - Immature Granulocytes (promyelocytes, myelocytes and metamyelocytes) > 1% indicates that a LEFT SHIFT is Present. Performed By: #### L 100.0100, L500.2500 ####[facility] [address] [place], [address] Lymphocytes/100 WBC (Bld) 17.2 % Low 19-41 [facility] Comment on above: Performed By: #### L 100.0100, L500.2500 ####[facility] [address] [place], [address] MCH (RBC) [Entitic mass] 30.8 pg Normal 27.0-32.0 [facility] Comment on above: Performed By: #### L 100.0100, L500.2500 ####[facility] [address] [place], [address] MCHC (RBC) [Mass/Vol] 33.7 g/dL Normal 32-36 [facility] Comment on above: Performed By: #### L 100.0100, L500.2500 ####[facility] [address] [place], [address] MCV (RBC) [Entitic vol] 91.3 fL Normal 81-99 [facility] Comment on above: Performed By: #### L 100.0100, L500.2500 ####[facility] [address] [place], [address] Monocytes/100 WBC (Bld) 6.0 % Normal 0-10 [facility] Comment on above: Performed By: #### L 100.0100, L500.2500 ####[facility] [address] [place], [address] Neutrophils/100 WBC (Bld) 75.1 % High 47-70 [facility] Comment on above: Performed By: #### L 100.0100, L500.2500 ####[facility] [address] [place], [address] Nucleated RBC (Bld) [#/Vol] 0 10*3/uL Normal 0-5 [facility] Comment on above: Performed By: #### L 100.0100, L500.2500 ####[facility] [address] [place], [address] Platelet mean volume (Bld) [Entitic vol] 11.0 fL Normal 6.2-12.0 [facility] Comment on above: Performed By: #### L 100.0100, L500.2500 ####[facility] [address] [place], [address] Platelets (Bld) [#/Vol] 160 10*3/uL Normal 150-450 [facility] Comment on above: Performed By: #### L 100.0100, L500.2500 ####[facility] [address] [place], [address] RBC (Bld) [#/Vol] 3.57 10*6/uL Low 4.2-5.4 [facility] Comment on above: Performed By: #### L 100.0100, L500.2500 ####[facility] [address] [place], [address] RDW SD 45.5 fl High 35.1-43.9 [facility] Comment on above: Performed By: #### L 100.0100, L500.2500 ####[facility] [address] [place], [address] WBC (Bld) [#/Vol] 11.2 10*3/uL High 4.4-11.0 [facility] Comment on above: Performed By: #### L 100.0100, L500.2500 ####[facility] [address] [place], [address] Basic Metabolic Profile (BMP )on 03-25-2025 BUN/CRE 11.3 RATIO Normal 10-20 [facility] Comment on above: Performed By: #### L 500.2500 ####[facility] [address] [place], [address] Calcium [Mass/Vol] 8.1 mg/dL Normal 7.6-11.0 [facility] Comment on above: Performed By: #### L 500.2500 ####[facility] [address] [place], [address] Chloride [Moles/Vol] 112 mmol/L High 98-108 [facility] Comment on above: Performed By: #### L 500.2500 ####[facility] [address] [place], [address] CO2 [Moles/Vol] 18.3 mmol/L Low 21.0-32.0 [facility] Comment on above: Performed By: #### L 500.2500 ####[facility] [address] [place], [address] Creatinine [Mass/Vol] 0.75 mg/dL Normal 0.70-1.20 [facility] Comment on above: Performed By: #### L 500.2500 ####[facility] [address] [place], [address] ECRCL 100.15 ml/min Normal 50-250 [facility] Comment on above: Performed By: #### L 500.2500 ####[facility] [address] [place], [address] GAP 12 Normal 5-15 [facility] Comment on above: Performed By: #### L 500.2500 ####[facility] [address] [place], [address] GFR/1.73 sq M.predicted among non-blacks MDRD (S/P/Bld) [Vol rate/Area] 96 mL/min/{1.73_m2} Normal >60 [facility] Comment on above: Result Comment: mL/m in/1.73m2 CKD-EPI Creatinine Equation (2020) Performed By: #### L 500.2500 ####[facility] [address] [place], [address] Glucose [Mass/Vol] 124 mg/dL High 70-99 [facility] Comment on above: Performed By: #### L 500.2500 ####[facility] [address] [place], [address] Potassium [Moles/Vol] 3.2 mmol/L Low 3.3-5.1 [facility] Comment on above: Performed By: #### L 500.2500 ####[facility] [address] [place], [address] Sodium [Moles/Vol] 142 mmol/L Normal 133-145 [facility] Comment on above: Performed By: #### L 500.2500 ####[facility] [address] [place], [address] Urea nitrogen [Mass/Vol] 9 mg/dL Normal 4-19 [facility] Comment on above: Performed By: #### L 500.2500 ####[facility] [address] [place], [address] CBC W/Diff, Automatedon 06-2 Absolute Lymph 1.22 X10 3/uL Normal 0.83-4.51 [facility] Comment on above: Performed By: #### L 500.4050, L501.2450, L100.0100 #### [facility] [address] [place], [address] Absolute Neut 12.1 X10 3/uL High 2.0-7.7 [facility] Comment on above: Performed By: #### L 500.4050, L501.2450, L100.0100 #### [facility] [address] [place], [address] Basophils/100 WBC (Bld) 0.1 % Normal 0-1 [facility] Comment on above: Performed By: #### L 500.4050, L501.2450, L100.0100 #### [facility] [address] [place], [address] Eosinophils/100 WBC (Bld) 0.0 % Normal 0-5 [facility] Comment on above: Performed By: #### L 500.4050, L501.2450, L100.0100 #### [facility] [address] [place], [address] Erythrocyte distribution width (RBC) [Ratio] 13.3 % Normal 11.6-14.6 [facility] Comment on above: Performed By: #### L 500.4050, L501.2450, L100.0100 #### [facility] [address] [place], [address] Hematocrit (Bld) [Volume fraction] 35.4 % Low 37-47 [facility] Comment on above: Performed By: #### L 500.4050, L501.2450, L100.0100 #### [facility] [address] [place], [address] Hemoglobin (Bld) [Mass/Vol] 11.9 g/dL Low 12.0-15.0 [facility] Comment on above: Performed By: #### L 500.4050, L501.2450, L100.0100 #### [facility] [address] [place], [address] IG% 0.200 Normal 0.0-0.9 [facility] Comment on above: Result Comment: IG% - Immature Granulocytes (promyelocytes, myelocytes and metamyelocytes) > 1% indicates that a LEFT SHIFT is Present. Performed By: #### L 500.4050, L501.2450, L100.0100 #### [facility] [address] [place], [address] Lymphocytes/100 WBC (Bld) 8.6 % Low 19-41 [facility] Comment on above: Performed By: #### L 500.4050, L501.2450, L100.0100 #### [facility] [address] [place], [address] MCH (RBC) [Entitic mass] 30.5 pg Normal 27.0-32.0 [facility] Comment on above: Performed By: #### L 500.4050, L501.2450, L100.0100 #### [facility] [address] [place], [address] MCHC (RBC) [Mass/Vol] 33.6 g/dL Normal 32-36 [facility] Comment on above: Performed By: #### L 500.4050, L501.2450, L100.0100 #### [facility] [address] [place], [address] MCV (RBC) [Entitic vol] 90.8 fL Normal 81-99 [facility] Comment on above: Performed By: #### L 500.4050, L501.2450, L100.0100 #### [facility] [address] [place], [address] Monocytes/100 WBC (Bld) 5.8 % Normal 0-10 [facility] Comment on above: Performed By: #### L 500.4050, L501.2450, L100.0100 #### [facility] [address] [place], [address] Neutrophils/100 WBC (Bld) 85.3 % High 47-70 [facility] Comment on above: Performed By: #### L 500.4050, L501.2450, L100.0100 #### [facility] [address] [place], [address] Nucleated RBC (Bld) [#/Vol] 0 10*3/uL Normal 0-5 [facility] Comment on above: Performed By: #### L 500.4050, L501.2450, L100.0100 #### [facility] [address] [place], [address] Platelet mean volume (Bld) [Entitic vol] 12.0 fL Normal 6.2-12.0 [facility] Comment on above: Performed By: #### L 500.4050, L501.2450, L100.0100 #### [facility] [address] [place], [address] Platelets (Bld) [#/Vol] 181 10*3/uL Normal 150-450 [facility] Comment on above: Performed By: #### L 500.4050, L501.2450, L100.0100 #### [facility] [address] [place], [address] RBC (Bld) [#/Vol] 3.90 10*6/uL Low 4.2-5.4 [facility] Comment on above: Performed By: #### L 500.4050, L501.2450, L100.0100 #### [facility] [address] [place], [address] RDW SD 44.0 fl High 35.1-43.9 [facility] Comment on above: Performed By: #### L 500.4050, L501.2450, L100.0100 #### [facility] [address] [place], [address] WBC (Bld) [#/Vol] 14.2 10*3/uL High 4.4-11.0 [facility] Comment on above: Performed By: #### L 500.4050, L501.2450, L100.0100 #### [facility] [address] [place], [address] HH, Hemoglobin AND Hematocri ton 03-25-2025 Hematocrit (Bld) [Volume fraction] 34.9 % Low 37-47 [facility] Comment on above: Performed By: #### L 100.0600 #### [facility] [address] [place], [address] Hemoglobin (Bld) [Mass/Vol] 11.7 g/dL Low 12.0-15.0 [facility] Comment on above: Performed By: #### L 100.0600 #### [facility] [address] [place], [address] Lactic Acidon 03-25-2025 Lactate [Moles/Vol] mmol/L Normal 0.0-2.0 [facility] Comment on above: Order Comment: Comme nts: if result >2, system reflex orders 2nd test @ 4hrsY Performed By: #### L 503.6005, L501.9520 ####[facility] [address] [place], [address] Lactic acid measurementOrder ed By: Jason Narayanan on 03-25-2025 Lactate [Moles/Vol] mmol/L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 Social History Smoking Status: Never smoker alcohol intake: never substance use type: does not use caffeine: Yes what type of physical activity do you participate in: none seatbelt use: always do you feel safe at home: Yes additional social history: Hhnkskv-Jvdu-Ydwuhxr Comfort Control 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 Eyes: Patient denies changes in vision or discharge from eyes. ENT: Patient denies runny nose, sore throat or ear pain. Resp: Patient denies SOB or cough. CV: Patient denies chest pain, palpitations, heart racing or LE edema. GI: Patient admits to LGIB with BRBPR and nausea with vomiting productive of bilious emesis as per HPI. : Patient denies dysuria or hematuria. MSK: Patient denies arthralgias or myalgias. Skin: Patient den (more content not included)... Normal [facility] Hematocrit Auto (Bld) [Volum e fraction]Ordered By: Bry Toribio on 03-24-2025 Hematocrit (Bld) [Volume fraction] 43.2 % 37-47 [facility] Hemoglobin measurementOrdere d By: Bry Toribio on 03-24-2025 Hemoglobin (Bld) [Mass/Vol] 14.8 g/dL 12.0-15.0 [facility] Immature granulocytes/100 WB C Auto (Bld)Ordered By: Bry Toribio on 03-24-2025 Immature granulocytes/100 WBC (Bld) 0.500 % 0.0-0.9 [facility] Comment on above: IG% - Immature Granu locytes (promyelocytes, myelocytes and metamyelocytes) > 1% indicates that a LEFT SHIFT is Present. International normalized rat io (INR) calculationOrdered By: Bry Toribio on 03-24-2025 INR Coag (Bld) [Relative time] 1.2 {INR} [facility] Ketones Test strip Ql (U)Ord ered By: Bry Toribio on 03-24-2025 Ketones Ql (U) Negative Negative [facility] - Chemistry and C hemistry - challengeOrdered By: Bry Toribio on 03-24-2025 AST [Catalytic activity/Vol] 21 U/L <32 [facility] Comment on above: Hemolysis present, R esults could be affected. Lactic Acidon 03-24-2025 Lactate [Moles/Vol] 1.0 mmol/L Normal 0.0-2.0 [facility] Comment on above: Order Comment: Y Performed By: #### L 500.4050, L501.2450, L100.0100 #### [facility] [address] [place], [place], [address] Lactic acid measurementOrder ed By: Bry Toribio on 03-24-2025 Lactate [Moles/Vol] 1.0 mmol/L 0.0-2.0 [facility] Lipaseon 03-24-2025 Lipase [Catalytic activity/Vol] 15 U/L Normal 13-75 [facility] Comment on above: Result Comment: Plea se note: LIPASE revised reference range effective 23. New Lipase methodology. Expected to produce lower values than the previous assay method. NEW Reference Range: 13 - 75 U/L Performed By: #### L 500.4050, L501.2450, L100.0100 #### [facility] [address] [place], [place], [address] Lipase measurementOrdered By : Bry Toribio on 03-24-2025 Lipase [Catalytic activity/Vol] 15 U/L 13-75 [facility] Comment on above: Please note:LIPASE r evised reference range effective 23. New Lipase methodology. Expected to produce lower values than the previous assay method. NEW Reference Range: 13 - 75 U/L MCV (mean corpuscular volume ) determinationOrdered By: Bry Toribio on 03-24-2025 MCV (RBC) [Entitic vol] 88.9 fL 81-99 [facility] Mean corpuscular hemoglobin (MCH) determinationOrdered By: Bry Toribio on 03-24-2025 MCH (RBC) [Entitic mass] 30.5 pg 27.0-32.0 [facility] Mean corpuscular hemoglobin concentration (MCHC) determinationOrdered By: Bry Toribio on 03-24-2025 MCHC (RBC) [Mass/Vol] 34.3 g/dL 32-36 [facility] Mean platelet volume determi nationOrdered By: Bry Toribio on 03-24-2025 Platelet mean volume (Bld) [Entitic vol] 11.6 fL 6.2-12.0 [facility] Microscopic analysis of urin e for red blood cells (RBC)Ordered By: Bry Toribio on 03-24-2025 Microscopic analysis of urine for red blood cells (RBC) 0-5 SEEN /hpf 0-5 [facility] Monocyte percentageOrdered B y: Bry Toribio on 03-24-2025 Monocytes/100 WBC (Bld) 3.4 % 0-10 [facility] Mucus LM Ql (Urine sed)Order ed By: Bry Toribio on 03-24-2025 Mucus Ql (Urine sed) 0 SEEN /hpf [facility] Neutrophil percentageOrdered By: Bry Toribio on 03-24-2025 Neutrophils/100 WBC (Bld) 89.3 % High 47-70 [facility] Nitrite Test strip Ql (U)Ord ered By: Bry Toribio on 03-24-2025 Nitrite Ql (U) Negative Negative [facility] Nucleated red blood cell per centageOrdered By: Bry Toribio on 03-24-2025 Nucleated RBC/100 WBC (Bld) [Ratio] 0 % 0-5 [facility] Partial Thromboplast Timeon 03-24-2025 aPTT Coag (Bld) [Time] 32.9 s Normal 24.1-36.2 [facility] Comment on above: Performed By: #### L 500.4050, L501.2450, L100.0100 #### [facility] [address] [place], [address] Platelet countOrdered By: Dannie Toribio on 03-24-2025 Platelets (Bld) [#/Vol] 251 10*3/uL 150-450 [facility] Potassium measurement (mass/ volume)Ordered By: Bry Toribio on 03-24-2025 Potassium (Unsp spec) [Mass/Vol] 3.7 mmol/L 3.3-5.1 [facility] Comment on above: Hemolysis present, R esults could be affected. Protein Test strip Ql (U)Ord ered By: Bry Toribio on 03-24-2025 Protein Ql (U) 15 mg/dl High Negative [facility] Prothrombin Time w/INRon INR Coag (PPP) [Relative time] 1.2 {INR} Normal [facility] Comment on above: Performed By: #### L 500.4050, L501.2450, L100.0100 #### [facility] [address] [place], [address] PT Coag (PPP) [Time] 15.0 s High 11.7-14.9 [facility] Comment on above: Performed By: #### L 500.4050, L501.2450, L100.0100 #### [facility] [address] [place], [address] Prothrombin timeOrdered By: Bry Toribio on 03-24-2025 PT Coag (PPP) [Time] 15.0 s High 11.7-14.9 [facility] RBC Auto (Bld) [#/Vol]Ordere d By: Bry Toribio on 03-24-2025 RBC (Bld) [#/Vol] 4.86 10*6/uL 4.2-5.4 [facility] Serum creatinine measurement (mass/volume)Ordered By: Bry Toribio on 03-24-2025 Creatinine [Mass/Vol] 0.74 mg/dL 0.70-1.20 [facility] Serum globulin measurementOr dered By: Bry Toribio on 03-24-2025 Globulin (S) [Mass/Vol] 2.8 g/dL 2.2-4.2 [facility] Serum glucose measurement (m ass/volume)Ordered By: Bry Toribio on 03-24-2025 Glucose [Mass/Vol] 110 mg/dL High 70-99 [facility] Serum or plasma alanine garcía otransferase (ALT) measurementOrdered By: Bry Toribio on 03-24-2025 ALT [Catalytic activity/Vol] 18 U/L <35 [facility] Serum or plasma albumin elizabet urement (mass/volume)Ordered By: Bry Toribio on 03-24-2025 Albumin [Mass/Vol] 4.5 g/dL 3.5-5.0 [facility] Serum or plasma albumin/glob ulin mass ratioOrdered By: Bry Toribio on 03-24-2025 Albumin/Globulin [Mass ratio] 1.6 {ratio} 0.9-2.4 [facility] Serum or plasma alkaline debora sphatase measurementOrdered By: Bry Toribio on 03-24-2025 ALP [Catalytic activity/Vol] 106 U/L High 35-104 [facility] Serum or plasma calcium elizabet urement (mass/volume)Ordered By: Bry Toribio on 03-24-2025 Calcium [Mass/Vol] 10.1 mg/dL 7.6-11.0 [facility] Serum or plasma urea nitroge n measurement (mass/volume)Ordered By: Bry Toribio on 03-24-2025 Urea nitrogen [Mass/Vol] 11 mg/dL 4-19 [facility] Sodium levelOrdered By: Bry Toribio on 03-24-2025 Sodium [Moles/Vol] 142 mmol/L 133-145 [facility] Squamous epithelial cells de tection in urine sediment by light microscopyOrdered By: Bry Toribio on 03-24-2025 Epithelial cells.squamous LM Ql (Urine sed) 0 SEEN /hpf 5-10 [facility] Total proteinOrdered By: Cici Toribio on 03-24-2025 Protein [Mass/Vol] 7.3 g/dL 5.9-8.4 [facility] Urinalysis, Completeon 03-24 BACTERIA RARE Normal None Seen [facility] Comment on above: Order Comment: CLEAN CATCH Performed By: #### L 500.4050, L501.2450, L100.0100 #### [facility] [address] [place], [address] RBC 0-5 SEEN Normal 0-5 [facility] Comment on above: Order Comment: CLEAN CATCH Performed By: #### L 500.4050, L501.2450, L100.0100 #### [facility] [address] [place], [address] WBC 0-5 SEEN Normal 0-5 [facility] Comment on above: Order Comment: CLEAN CATCH Performed By: #### L 500.4050, L501.2450, L100.0100 #### [facility] [address] [place], [address] EPI,SQUAMOUS 0 SEEN Normal 5-10 [facility] Comment on above: Order Comment: CLEAN CATCH Performed By: #### L 500.4050, L501.2450, L100.0100 #### [facility] [address] [place], [address] Mucus Ql (Urine sed) 0 SEEN Normal [facility] Comment on above: Order Comment: CLEAN CATCH Performed By: #### L 500.4050, L501.2450, L100.0100 #### [facility] [address] [place], [address] Urine clarityOrdered By: Cici Toribio on 03-24-2025 Clarity (U) Clear Clear [facility] Urine color determinationOrd ered By: Bry Toribio on 03-24-2025 Color (U) Straw Yellow [facility] Urine glucose detectionOrder ed By: Bry Toribio on 03-24-2025 Glucose Ql (U) Normal mg/dl Normal [facility] Urine leukocyte esterase det ection by dipstickOrdered By: Bry Toribio on 03-24-2025 Leukocyte esterase Test strip Ql (U) Negative Negative [facility] Urine pHOrdered By: Bry stockton on 03-24-2025 pH (U) 8.0 [pH] 5.0 - 8.0 [facility] Urine sediment bacteria coun t by microscopy (number/high power field)Ordered By: Bry Toribio on 03-24-2025 Bacteria LM.HPF (Urine sed) [#/Area] RARE /hpf None Seen [facility] Urine specific gravity measu rementOrdered By: Bry Toribio on 03-24-2025 Specific gravity (U) [Rel density] 1.010 1.002-1.030 [facility] Urine urobilinogen measureme ntOrdered By: Bry Toribio on 03-24-2025 Urobilinogen Ql (U) Normal mg/dl Normal [facility] White blood cell (WBC) count Ordered By: Bry Toribio on 03-24-2025 WBC (Bld) [#/Vol] 15.1 10*3/uL High 4.4-11.0 [facility] White blood cell countOrdere d By: Bry Toribio on 03-24-2025 White blood cell count 0-5 SEEN /hpf 0-5 [facility] Urine Cultureon 02-09-2025 URC Culture exhibits no growth. Normal [facility] Comment on above: Performed By: #### L 500.4050, L501.2450, L100.0100 #### [facility] [place], [address] Laboratory - Chemistry and C hemistry - challengeOrdered By: Navya Mead on 02-08-2025 Bilirubin Ql (U) Negative [facility] Glucose Ql (U) Negative [facility] Ketones Ql (U) Negative [facility] pH (U) 5.0 [pH] [facility] Specific gravity (U) [Rel density] 1.025 [facility] Urobilinogen (U) [Mass/Vol] Negative [facility] - Hematology and Cell countsOrdered By: Navya Mead on 02-08-2025 Hemoglobin Ql (U) Negative [facility] - Specimen inform ationOrdered By: Navya Mead on 02-08-2025 Clarity (U) Clear [facility] Color (U) YELLOW [facility] - UrinalysisOrder ed By: Navya Mead on 02-08-2025 Nitrite Ql (U) Negative [facility] Protein Ql (U) Negative [facility] No Panel InformationOrdered By: Navya Mead on 02-08-2025 Urine Leukocytes Negatve [facility] Urine Non-Hemolyzed Blood Negative [facility] [employer] Office Visit Reporton 02-08-2025 [employer] Office Visit Report [facility] [address], [address] [place] [address] OFFICE VISIT Date of Service: 02/08/25 MR#: [id number] Acct: [id number] Name: BRISSA STEELE Rep #: [id number] : 1970 Provider: Dr. Navya holt MD Age/Sex: 54/F [place] [facility] [place]: Signed Intake Vital Signs 01/31/25 15:54 02/08/25 12:55 02/08/25 13:06 Height 5 ft 4 in 5 ft 4 in 5 ft 4 in BP 97/58 L Intake Visit Reasons: Pessary Insert *per Insurance Sales Specialist Required: No Is patient in pain?: No [...] safe at home: Yes additional social history: Ebmeyei-Nlod-Qfnqadu Comfort Control 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 [facility] History 4 Elective abortions Hx Para [...] acute distress, well developed and well groomed HENFL Head: normal to inspection and normocephalic Ears: [...] vaginal a (more content not included)... Normal [facility] PT D/C Summary (1)on 025 PT D/C Summary (1) [facility] Physical Therapy [facility] [address] [place] [address] / REHABILITATION SERVICES DISCHARGE SUMMARY MR#: [id number] Acct: [id number] Name: BRISSA STEELE Rep #: [id number] : 1970 54 From: Jerry Montes PT, Cert. T, OCS Referring Dr.: Dr. Philip Gerber MD Status: REG RCR Insurance: [employer]/[facility] SELF PAY INSURANCE Discharge Summary D/C [...] please feel free to call me at [phone]. Thank you for the referral of this patient. Sincerely, Jerry Montes, PT, Cert MDT, OCS Balance/Gait/Functional tests Balance/Special Test Scores Oswestry Low Back Score: 28 02/08/25 0841 CC: Dr. Philip Gerber MD; Dr. Tequila Renee MD JLA Signed Normal [facility] Urine cultureOrdered By: Jeff Mead on 02-08-2025 Bacteria identified Cx Nom (U) Culture exhibits no growth. [facility] Open [facility]earth [facility]ter Office Visit Reporton 01-31-2025 [facility] Office Visit Report [facility]'s [address], [address] [place] [address] OFFICE VISIT Date of Service: 01/31/25 MR#: [id number] Acct: [id number] Name: BRISSA STEELE Rep #: [id number] : 1970 Provider: Dr. Navya holt MD Age/Sex: 54/F [place] [facility] [place]: S[place] Intake Vital Signs 01/09/25 06:49 01/31/25 15:54 Height 5 ft 4 in 5 ft 4 in Intake Visit Reasons: Pelvic Floor Dropped Insurance Sales Specialist Required: No Is patient in pain?: Yes [...] known: No Patient : No : No [facility] Medical History Pain Nausea Epigastric pain [...] safe at home: Yes additional social history: Binglww-Tkod-Gbydsyb Comfort Control 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 [facility] HPI Pelvic Floor Dropped Details: BRISSA [...] acute distress, well developed and well groomed [facility] Head: normal to inspection and normocephalic Ears: [...] normal a (more content not included)... Normal [facility] Lumbar Spine 2 or 3 Viewson 01-09-2025 Lumbar Spine 2 or 3 Views [facility] Imaging Services [address] [place] [address] Lumbar Spine 2 or 3 Views MR#: [id number] Acct: [id number] Name: BRISSA STEELE Rep #: [id number] : 1970 F 54 From: Donald Donato PCP: Dr. Tequila Renee MD Status: [facility] Study: Lumbar Spine 2 or 3 Views Date of Exam: Exam# [id number] Ordering Dr: Philip Gerber MD PROCEDURE: LUMBAR [...] Philip Gerber MD; Dr. Tequila Renee MD Real Property Appraiser: Signed [facility] MR/POSTOP.[facility] 01-09-2025 MR/POSTOP.[facility] Medical Records Department [address] [place] [address] Anesthesia Postop Eval I 01/09/25816 MR#: [id number] Acct: [id number] Name: BRISSA STEELE Rep #: [id number] : 1970 54 From: Silvia Mckeon PCP: Dr. Tequila Renee MD Status:[facility] Y Race: C Location: [place] [address] Anesthesia: Postop Eval I Current Vital Signs Temperature: 97.3 F Pulse Rate: 76 Blood Pressure: 115/76 Respiratory Rate: 18 Pulse Ox: 93 Assessment Airway patent: Yes Spontaneous unlabored respirations: Yes nausea: No Vomiting: No Anesthesia Complication: No Fluid Hydration Crystalloid volume administer (ml): 10 Total IV fluid infused: 10 Progress Note Anesthesia document: Postop Eval 1 completed: Yes 01/09/25819 Date Silvia Churchilligndannie Signature: Date CC: Signed Normal [facility] [id number] 01-09-2025 MR/POSTOPAN2 [facility] Medical Records Department [address] [place] [address] Anesthesia Postop Eval II 01/09/25830 MR#: [id number] Acct: [id number] Name: BRISSA STEELE Rep #: [id number] : 1970 54 From: Silvia Mckeon PCP: Dr. Tequila Renee MD Status:REG SDC Y Race: C Location: [place] [address] Anesthesia Postop Eval I Sum Postop Eval Completion status Anesthesia document: Postop Eval 1 completed: Yes Anesthesia Postop Eval I Summary Anesthesia Postop Eval I Summary: Anesthesia Postop Eval I: Assessment Summary Airway patent Yes 01/09/25 08:17 PARTS [email or web address].CSIR Spontaneous unlabored Yes 01/09/25 08:17 PARTS [email or web address].CSIR respirations Mental status nausea No 01/09/25 08:17 PARTS ASSEMBLER.CSIR Vomiting No 01/09/25 08:17 PARTS ASSEMBLER.CSIR Anesthesia Postop Eval I: Fluid Summary Crystalloid volume administer 10 01/09/25 08:17 PARTS ASSEMBLER.CSIR (ml) Colloids volume administered ( ml) Blood Product volume administered (ml) Total IV fluid infused 10 01/09/25 08:17 PARTS ASSEMBLER.CSIR Anesthesia Postop Eval I: Summary Notes Anesthesia Complication No 01/09/25 08:17 PARTS ASSEMBLER.CSIR Anesthesia Complication Comment: Post-operative progress note Anesthesia: Postop Eval II Evaluation Mental status: Awake Pain Level: 3 nausea: No Vomiting: No 01/09/25830 Silvia Churchilligndannie Signature: Date CC: Signed [facility] Magnetic resonance imaging r eportOrdered By: Donald Jordan on 01-09-2025 Study report [facility] Imaging [place] [address] Spine Lumbar (Routine) MR#: [id number] Acct: [id number] Name: BRISSA STEELE Rep #: [id number] : 1970 F 54 From: Wai Jordan DO PCP: Dr. Tequila Renee MD Status: REG CLI Study:Spine Lumbar (Routine) Date of Exam: 01/06/25 Exam# [id number] Ordering Dr: Philip Gerber MD EXAM: MRI [...] narrowing from L4 through S1. Reading Location: [facility] CC: Dr. Philip Gerber MD; Dr. Tequila Renee MD ~ Real Property Appraiser: Signed [facility] Operative Reporton 04-07-202 5 Operative Report [facility] Medical Records Department [address] [place] [address] Operative Report 01/09/25 0826 MR#: [id number] Acct: [id number] Name: BRISSA STEELE Rep #: [id number] : 1970 54 From: Philip Gerber MD PCP: Dr. Tequila Renee MD Status:[facility] Location: [place] [address] Operative Report (Standard) Operative Information Date of Procedure: 01/09/25 Pre-Operative Diagnosis: Lumbosacral radiculopathy, lumbosacral spinal stenosis, lumbosacral degenerative disc disease Post-Operative Diagnosis: Lumbosacral radiculopathy, lumbosacral spinal stenosis, lumbosacral degenerative disc disease Surgery/Procedure Performed: 1 daytime caregiver: No Type of Anesthesia: Local MAC RN [...] Documentation VTE Present on Admission: No 01/09/25 3270 Cosigner Signature (if applicable): CC: Dr. Philip Gerber MD; Dr. Tequila Renee MD Signed Normal [facility] Spine Lumbar (Routine)on Spine Lumbar (Routine) [facility] Imaging Services [address] [place] [address] Spine Lumbar (Routine) MR#: [id number] Acct: [id number] Name: CEDRICNIGEL Rep #: [id number] : 1970 F 54 From: Donald Donato PCP: Dr. Tequila Renee MD Status: REG CLI Study: Spine Lumbar (Routine) Date of Exam: 01/06/25 Exam# [id number] Ordering Dr: Philip Gerber MD EXAM: MRI [...] Philip Gerber MD; Dr. Tequila Renee MD Real Property Appraiser: Signed Normal [facility] Inital Evaluation (1) - PTon 12-02-2024 Inital Evaluation (1) - PT [facility] Physical Therapy [facility] [address] [place] [address] [address] [place] [address] / REHABILITATION SERVICES INITIAL EVALUATION MR#: [id number] Acct: [id number] Name: CEDRICBRISSA CHRISTOPHER Rep #: [id number] : 1970 54 From: Jerry Montes PT, Cert. MD Rubin, OCS Referring Dr.: Dr. Philip Gerber MD Status: REG RCR Insurance: [employer]/[facility] SELF PAY INSURANCE Patient's Visit Information [...] Intensity Range: 10 Comment: WORKINHG AND STANDING 7-05/14 Objective Objective: POSTURE: mild forward posture GAIT: [...] Response: No effect Lumbar Standing: Right Side [place] - Symptoms During Testing: No effect Lumbar Standing: Right Side [place] - Symptoms After Testing: No effect Lumbar Standing: Left Side [place] - Mechanical Response: No effect Lumbar Standing: Left Side [place] - Symptoms During Testing: No effect Lumbar Standing: Left Side [place] - Symptoms After Testing: No effect Lumbar [...] improve a (more content not included)... Normal [facility] Hemoglobin A1con 11-13-2024 HbA1c (Bld) [Mass fraction] 5.6 % Normal 3.8-5.6 [facility] Comment on above: Result Comment: Norm al < 5.7 % Prediabetic 5.7 - 6.4 % Diabetic >or= 6.5 % Please note range changes. Performed By: #### L 500.4050, L501.2450, L100.0100 #### [facility] Laboratory [address] [place], [address] 21-RN-Qdzilrx DOrdered By: David Mead on 11-11-2024 Vitamin D 25-Hydroxy 48.6 ng/mL [facility] Comment on above: Vitamin D 25(OH) Sta tus Range Deficiency <20 ng/mL (50nmol/L) Insufficiency 20 - 30 ng/mL (50 - 75 nmol/L) Sufficiency 30 - 100 ng/mL (75 - 250 nmol/L) Toxicity >100 ng/mL (>250 nmol/L) Absolute lymphocyte countOrd ered By: Navya Mead on 11-11-2024 Lymphocytes Auto (Unsp spec) [#/Vol] 1.16 10*3/uL 0.83-4.51 [facility] Absolute neutrophil countOrd ered By: Navya Mead on 11-11-2024 Neutrophils (Bld) [#/Vol] 4.2 10*3/uL 2.0-7.7 [facility] Albumin to globulin ratioOrd ered By: Navya Mead on 11-11-2024 Albumin/Globulin [Mass ratio] 1.2 {ratio} 0.9-2.4 [facility] Automated lymphocyte count a s percentage of total leukocytesOrdered By: Navya Mead on 11-11-2024 Lymphocytes/100 WBC Auto (Unsp spec) 19.6 % 19-41 [facility] Basophil percentageOrdered B y: Navya Mead on 11-11-2024 Basophils/100 WBC (Bld) 0.7 % 0-1 [facility] Bilirubin, totalOrdered By: Nayva Mead on 11-11-2024 Bilirubin [Mass/Vol] 0.30 mg/dL 0.20-1.00 [facility] Comment on above: For patients on eltr ombopag therapy, use of Dimension [place] TBIL is not recommended. Blood urea nitrogen (BUN)/cr eatinine ratioOrdered By: Navya Mead on 11-11-2024 Urea nitrogen/Creatinine [Mass ratio] 13.0 mg/mg 10-20 [facility] CBC W/Diff, Automatedon Absolute Lymph 1.16 X10 3/uL Normal 0.83-4.51 [facility] Comment on above: Performed By: #### L 500.4050, L501.2450, L100.0100 #### [facility] Laboratory [address] [place], [address] Absolute Neut 4.2 X10 3/uL Normal 2.0-7.7 [facility] Comment on above: Performed By: #### L 500.4050, L501.2450, L100.0100 #### [facility] Laboratory [address] [place], [address] Basophils/100 WBC (Bld) 0.7 % Normal 0-1 [facility] Comment on above: Performed By: #### L 500.4050, L501.2450, L100.0100 #### [facility] [address] [place], [address] Eosinophils/100 WBC (Bld) 2.4 % Normal 0-5 [facility] Comment on above: Performed By: #### L 500.4050, L501.2450, L100.0100 #### [facility] Laboratory [address] [place], [address] Erythrocyte distribution width (RBC) [Ratio] 13.7 % Normal 11.6-14.6 [facility] Comment on above: Performed By: #### L 500.4050, L501.2450, L100.0100 #### [facility] Laboratory [address] [place], [address] Hematocrit (Bld) [Volume fraction] 45.9 % Normal 37-47 [facility] Comment on above: Performed By: #### L 500.4050, L501.2450, L100.0100 #### [facility] [address] [place], [address] Hemoglobin (Bld) [Mass/Vol] 15.5 g/dL High 12.0-15.0 [facility] Comment on above: Performed By: #### L 500.4050, L501.2450, L100.0100 #### [facility] [address] [place], [address] IG% 1.000 High 0.0-0.9 [facility] Comment on above: Result Comment: IG% - Immature Granulocytes (promyelocytes, myelocytes and metamyelocytes) > 1% indicates that a LEFT SHIFT is Present. Performed By: #### L 500.4050, L501.2450, L100.0100 #### [facility] [address] [place], [address] Lymphocytes/100 WBC (Bld) 19.6 % Normal 19-41 [facility] Comment on above: Performed By: #### L 500.4050, L501.2450, L100.0100 #### [facility] [address] [place], [address] MCH (RBC) [Entitic mass] 30.5 pg Normal 27.0-32.0 [facility] Comment on above: Performed By: #### L 500.4050, L501.2450, L100.0100 #### [facility] [address] [place], [address] MCHC (RBC) [Mass/Vol] 33.8 g/dL Normal 32-36 [facility] Comment on above: Performed By: #### L 500.4050, L501.2450, L100.0100 #### [facility] [address] [place], [address] MCV (RBC) [Entitic vol] 90.4 fL Normal 81-99 [facility] Comment on above: Performed By: #### L 500.4050, L501.2450, L100.0100 #### [facility] [address] [place], [address] Monocytes/100 WBC (Bld) 5.9 % Normal 0-10 [facility] Comment on above: Performed By: #### L 500.4050, L501.2450, L100.0100 #### [facility] [address] [place], [address] Neutrophils/100 WBC (Bld) 70.4 % High 47-70 [facility] Comment on above: Performed By: #### L 500.4050, L501.2450, L100.0100 #### [facility] [address] [place], [address] Nucleated RBC (Bld) [#/Vol] 0 10*3/uL Normal 0-5 [facility] Comment on above: Performed By: #### L 500.4050, L501.2450, L100.0100 #### [facility] [address] [place], [address] Platelet mean volume (Bld) [Entitic vol] 11.5 fL Normal 6.2-12.0 [facility] Comment on above: Performed By: #### L 500.4050, L501.2450, L100.0100 #### [facility] [address] [place], [address] Platelets (Bld) [#/Vol] 176 10*3/uL Normal 150-450 [facility] Comment on above: Performed By: #### L 500.4050, L501.2450, L100.0100 #### [facility] [address] [place], [address] RBC (Bld) [#/Vol] 5.08 10*6/uL Normal 4.2-5.4 [facility] Comment on above: Performed By: #### L 500.4050, L501.2450, L100.0100 #### [facility] [address] [place], [address] RDW SD 45.3 fl High 35.1-43.9 [facility] Comment on above: Performed By: #### L 500.4050, L501.2450, L100.0100 #### [facility] [address] [place], [address] WBC (Bld) [#/Vol] 5.9 10*3/uL Normal 4.4-11.0 [facility] Comment on above: Performed By: #### L 500.4050, L501.2450, L100.0100 #### [facility] [address] [place], [address] Carbon dioxide measurementOr dered By: Navya Mead on 11-11-2024 CO2 [Moles/Vol] 21.0 mmol/L 21.0-32.0 [facility] Chloride measurementOrdered By: Navya Mead on 11-11-2024 Chloride [Moles/Vol] 108 mmol/L High 98-107 [facility] Comprehensive Metabolic Prof ilon 11-11-2024 Albumin [Mass/Vol] 4.2 g/dL Normal 3.2-5.0 [facility] Comment on above: Performed By: #### L 500.4050, L501.2450, L100.0100 #### [facility] [address] [place], [address] Albumin/Globulin [Mass ratio] 1.2 {ratio} Normal 0.9-2.4 [facility] Comment on above: Performed By: #### L 500.4050, L501.2450, L100.0100 #### [facility] [address] [place], [address] ALK P 91 U/L Normal 45-117 [facility] Comment on above: Performed By: #### L 500.4050, L501.2450, L100.0100 #### [facility] [address] [place], [address] ALT [Catalytic activity/Vol] 30 U/L Normal 13-56 [facility] Comment on above: Performed By: #### L 500.4050, L501.2450, L100.0100 #### [facility] [address] [place], [address] AST [Catalytic activity/Vol] 22 U/L Normal 15-37 [facility] Comment on above: Result Comment: Slig ht Hemolysis, Result may be falsely increased. Performed By: #### L 500.4050, L501.2450, L100.0100 #### [facility] [address] [place], [address] Bilirubin [Mass/Vol] 0.30 mg/dL Normal 0.20-1.00 [facility] Comment on above: Result Comment: For patients on eltrombopag therapy, use of Dimension [place] TBIL is not recommended. Performed By: #### L 500.4050, L501.2450, L100.0100 #### [facility] [address] [place], [address] BUN/CRE 13.0 RATIO Normal 10-20 [facility] Comment on above: Performed By: #### L 500.4050, L501.2450, L100.0100 #### [facility] [address] [place], [address] CA,Total 9.6 mg/dL Normal 8.5-10.1 [facility] Comment on above: Performed By: #### L 500.4050, L501.2450, L100.0100 #### [facility] [address] [place], [address] Chloride [Moles/Vol] 108 mmol/L High 98-107 [facility] Comment on above: Performed By: #### L 500.4050, L501.2450, L100.0100 #### [facility] [address] [place], [address] CO2 [Moles/Vol] 21.0 mmol/L Normal 21.0-32.0 [facility] Comment on above: Performed By: #### L 500.4050, L501.2450, L100.0100 #### [facility] [address] [place], [address] Creatinine [Mass/Vol] 0.84 mg/dL Normal 0.55-1.02 [facility] Comment on above: Result Comment: The validity of the calculated GFR GFRAA in patients over 70 years has not been determined. Clinical correlation is essential. Performed By: #### L 500.4050, L501.2450, L100.0100 #### [facility] [address] [place], [address] EST GFR - AA 91 mL/min Normal >60 [facility] Comment on above: Result Comment: Afri can [place] GFR Calc Performed By: #### L 500.4050, L501.2450, L100.0100 #### [facility] [address] [place], [address] GAP 12 Normal 5-15 [facility] Comment on above: Performed By: #### L 500.4050, L501.2450, L100.0100 #### [facility] [address] [place], [address] GFR/1.73 sq M.predicted among non-blacks MDRD (S/P/Bld) [Vol rate/Area] 75 mL/min/{1.73_m2} Normal >60 [facility] Comment on above: Result Comment: Non- GFR Calc Performed By: #### L 500.4050, L501.2450, L100.0100 #### [facility] [address] [place], [address] Globulin (S) [Mass/Vol] 3.6 g/dL Normal 2.2-4.2 [facility] Comment on above: Performed By: #### L 500.4050, L501.2450, L100.0100 #### [facility] [address] [place], [address] Glucose [Mass/Vol] 82 mg/dL Normal 74-106 [facility] Comment on above: Performed By: #### L 500.4050, L501.2450, L100.0100 #### [facility] [address] [place], [address] Potassium [Moles/Vol] 3.9 mmol/L Normal 3.5-5.1 [facility] Comment on above: Result Comment: Slig ht Hemolysis, Result may be falsely increased. Performed By: #### L 500.4050, L501.2450, L100.0100 #### [facility] [address] [place], [address] Sodium [Moles/Vol] 141 mmol/L Normal 136-145 [facility] Comment on above: Performed By: #### L 500.4050, L501.2450, L100.0100 #### [facility] [address] [place], [address] T PROT 7.8 g/dL Normal 6.4-8.2 [facility] Comment on above: Performed By: #### L 500.4050, L501.2450, L100.0100 #### [facility] [address] [place], [address] Urea nitrogen [Mass/Vol] 11 mg/dL Normal 7-18 [facility] Comment on above: Performed By: #### L 500.4050, L501.2450, L100.0100 #### [facility] [address] [place], [address] Eosinophil percentageOrdered By: Navya Mead on 11-11-2024 Eosinophils/100 WBC (Bld) 2.4 % 0-5 [facility] Erythrocyte distribution wid th (RBC) [Ratio]Ordered By: Navya Mead on 11-11-2024 Erythrocyte distribution width (RBC) [Entitic vol] 45.3 fL High 35.1-43.9 [facility] Erythrocyte distribution wid th ratioOrdered By: Navya Mead on 11-11-2024 Erythrocyte distribution width (RBC) [Ratio] 13.7 % 11.6-14.6 [facility] Erythrocyte distribution wid th standard deviationOrdered By: Navya Mead on 11-11-2024 Erythrocyte distribution width (RBC) [Ratio] 45.3 fl High 35.1-43.9 [facility] Estimated glomerular filtrat ion rate (GFR) AmericanOrdered By: Navya Mead on 11-11-2024 Estimated GFR (MDRD) Amer 91 mL/min >60 [facility] Comment on above: GFR Calc Glomerular filtration rate ( GFR) estimationOrdered By: Navya Mead on 11-11-2024 Estimated GFR (MDRD) Non-Af Amer 75 mL/min >60 [facility] Comment on above: Non- GFR Calc GFR/1.73 sq M.predicted among non-blacks MDRD (S/P/Bld) [Vol rate/Area] 75 mL/min/{1.73_m2} >60 [facility] Comment on above: Non- GFR Calc Glucose measurementOrdered B y: Nayva Mead on 11-11-2024 Glucose [Mass/Vol] 82 mg/dL 74-106 [facility] Hematocrit Auto (Bld) [Volum e fraction]Ordered By: Navya Mead on 11-11-2024 Hematocrit (Bld) [Volume fraction] 45.9 % 37-47 [facility] Hemoglobin A1c percentageOrd ered By: Navya Mead on 11-11-2024 HbA1c (Bld) [Mass fraction] 5.6 % 3.8-5.6 [facility] Comment on above: Normal < 5.7 % Predi abetic 5.7 - 6.4 % Diabetic >or= 6.5 % Please note range changes. Hemoglobin measurementOrdere d By: Navya Mead on 11-11-2024 Hemoglobin (Bld) [Mass/Vol] 15.5 g/dL High 12.0-15.0 [facility] High density lipoprotein (HD L) measurementOrdered By: Navya Mead on 11-11-2024 Cholesterol in HDL [Mass/Vol] 64 mg/dL >40 [facility] Comment on above: The drugs N-Acetylcy steine and Metamizole may falsely depress this assay. Reference Range HDL <40 mg/dL Low HDL Cholesterol HDL >or= 60 mg/dL High HDL Cholesterol Immature granulocytes/100 WB C Auto (Bld)Ordered By: Navya Mead on 11-11-2024 Immature granulocytes/100 WBC (Bld) 1.000 % High 0.0-0.9 [facility] Comment on above: IG% - Immature Granu locytes (promyelocytes, myelocytes and metamyelocytes) > 1% indicates that a LEFT SHIFT is Present. Laboratory - Chemistry and C hemistry - challengeOrdered By: Navya Mead on 11-11-2024 AST [Catalytic activity/Vol] 22 U/L 15-37 [facility] Comment on above: Slight Hemolysis, Re sult may be falsely increased. Lipid Profileon 11-11-2024 Cholesterol [Mass/Vol] 164 mg/dL Normal 200 [facility] Comment on above: Result Comment: <200 mg/dL Desirable 200-240 mg/dL Borderline >240 mg/dL High Risk Performed By: #### L 500.4050, L501.2450, L100.0100 #### [facility] [address] [place], [address] Cholesterol in HDL [Mass/Vol] 64 mg/dL Normal [facility] Comment on above: Result Comment: The drugs N-Acetylcysteine and Metamizole may falsely depress this assay. Reference Range HDL <40 mg/dL Low HDL Cholesterol HDL >or= 60 mg/dL High HDL Cholesterol Performed By: #### L 500.4050, L501.2450, L100.0100 #### [facility] [address] [place], [address] Cholesterol in LDL [Mass/Vol] 87 mg/dL Normal 0-130 [facility] Comment on above: Performed By: #### L 500.4050, L501.2450, L100.0100 #### [facility] [address] [place], [address] Cholesterol in VLDL [Mass/Vol] 13 mg/dL Normal 5-40 [facility] Comment on above: Performed By: #### L 500.4050, L501.2450, L100.0100 #### [facility] [address] [place], [address] Triglyceride [Mass/Vol] 63 mg/dL Normal [facility] Comment on above: Result Comment: The drugs N-Acetylcysteine and Metamizole may falsely depress this assay. Serum Triglycerides Reference Interval Normal <150 mg/dL Borderline high 150 - 199 mg/dL High 200 - 499 mg/dL Very High > or = 500 mg/dL Performed By: #### L 500.4050, L501.2450, L100.0100 #### [facility] [address] [place], [address] Low density lipoprotein (LDL ) cholesterol measurementOrdered By: Navya Mead on 11-11-2024 Cholesterol in LDL [Mass/Vol] 87 mg/dL 0-130 [facility] Lymphocytes Auto (Unsp spec) [#/Vol]Ordered By: Navya Mead on 11-11-2024 Lymphocytes (Bld) [#/Vol] 1.16 10*3/uL 0.83-4.51 [facility] Lymphocytes/100 WBC Auto (Un sp spec)Ordered By: Navya Mead on 11-11-2024 Lymphocytes/100 WBC (Bld) 19.6 % 19-41 [facility] MCV (mean corpuscular volume ) determinationOrdered By: Navya Mead on 11-11-2024 MCV (RBC) [Entitic vol] 90.4 fL 81-99 [facility] Mean corpuscular hemoglobin (MCH) determinationOrdered By: Navya Mead on 11-11-2024 MCH (RBC) [Entitic mass] 30.5 pg 27.0-32.0 [facility] Mean corpuscular hemoglobin concentration (MCHC) determinationOrdered By: Navya Mead on 11-11-2024 MCHC (RBC) [Mass/Vol] 33.8 g/dL 32-36 [facility] Mean platelet volume determi nationOrdered By: Navya Mead on 11-11-2024 Platelet mean volume (Bld) [Entitic vol] 11.5 fL 6.2-12.0 [facility] Monocyte percentageOrdered B y: Navya Mead on 11-11-2024 Monocytes/100 WBC (Bld) 5.9 % 0-10 [facility] Neutrophil percentageOrdered By: Navya Mead on 11-11-2024 Neutrophils/100 WBC (Bld) 70.4 % High 47-70 [facility] Nucleated red blood cell per centageOrdered By: Navya Mead on 11-11-2024 Nucleated RBC/100 WBC (Bld) [Ratio] 0 % 0-5 [facility] [employer] Office Visit Reporton 11-11-2024 [employer] [facility] Office Visit Report [facility] [address], [address] [place] [address] OFFICE VISIT Date of Service: 11/11/24 MR#: [id number] Acct: [id number] Name: BRISSA STEELE Rep #: [id number] : 1970 Provider: Dr. 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 Normal [facility] Platelet countOrdered By: Arvind Mead on 11-11-2024 Platelets (Bld) [#/Vol] 176 10*3/uL 150-450 [facility] Potassium measurementOrdered By: Navya Mead on 11-11-2024 Potassium [Moles/Vol] 3.9 mmol/L 3.5-5.1 [facility] Comment on above: Slight Hemolysis, Re sult may be falsely increased. RBC Auto (Bld) [#/Vol]Ordere d By: Navya Mead on 11-11-2024 RBC (Bld) [#/Vol] 5.08 10*6/uL 4.2-5.4 [facility] Serum anion gap measurementO rdered By: Navya Mead on 11-11-2024 Anion gap [Moles/Vol] 12 mmol/L 5-15 [facility] Serum globulin measurementOr dered By: Navya Mead on 11-11-2024 Globulin (S) [Mass/Vol] 3.6 g/dL 2.2-4.2 [facility] Serum or plasma alanine garcía otransferase (ALT) measurementOrdered By: Navya Mead on 11-11-2024 ALT [Catalytic activity/Vol] 30 U/L 13-56 [facility] Serum or plasma albumin elizabet urement (mass/volume)Ordered By: Navya Mead on 11-11-2024 Albumin [Mass/Vol] 4.2 g/dL 3.2-5.0 [facility] Serum or plasma alkaline debora sphatase measurementOrdered By: Navya Mead on 11-11-2024 ALP [Catalytic activity/Vol] 91 U/L 45-117 [facility] Serum or plasma calcium elizabet urement (mass/volume)Ordered By: Navya Mead on 11-11-2024 Calcium [Mass/Vol] 9.6 mg/dL 8.5-10.1 [facility] Serum or plasma cholesterol measurement (mass/volume)Ordered By: Navya Mead on 11-11-2024 Cholesterol [Mass/Vol] 164 mg/dL <200 [facility] Comment on above: <200 mg/dL Desirable 200-240 mg/dL Borderline >240 mg/dL High Risk Serum or plasma creatinine m easurement (mass/volume)Ordered By: Navya Mead on 11-11-2024 Creatinine [Mass/Vol] 0.84 mg/dL 0.55-1.02 [facility] Comment on above: The validity of the calculated GFR & GFRAA in patients over 70 years has not been determined. Clinical correlation is essential. Serum or plasma thyroid stim ulating hormone (TSH) measurement (units/volume)Ordered By: Navya Mead on 11-11-2024 TSH Qn 1.120 uIU/mL 0.358-3.740 [facility] Serum or plasma urea nitroge n measurement (mass/volume)Ordered By: Navya Mead on 11-11-2024 Urea nitrogen [Mass/Vol] 11 mg/dL 7-18 [facility] Sodium levelOrdered By: Keegan Mead on 11-11-2024 Sodium [Moles/Vol] 141 mmol/L 136-145 [facility] TSH QnOrdered By: Navya gonzalez on 11-11-2024 Thyroid Stimulating Hormone (TSH) 1.120 uIU/mL 0.358-3.740 [facility] Thyroid Stim Hormone (TSH)on 11-11-2024 TSH 1.120 uIU/mL Normal 0.358-3.740 [facility] Comment on above: Performed By: #### L 500.4050, L501.2450, L100.0100 #### [facility] [address] [place] [address], [address] Total proteinOrdered By: Jeff Mead on 11-11-2024 Protein [Mass/Vol] 7.8 g/dL 6.4-8.2 [facility] Triglycerides measurementOrd ered By: Navya Mead on 11-11-2024 Triglyceride [Mass/Vol] 63 mg/dL <199 [facility] Comment on above: The drugs N-Acetylcy steine and Metamizole may falsely depress this assay.Serum Triglycerides Reference Interval Normal <150 mg/dL Borderline high 150 - 199 mg/dL High 200 - 499 mg/dL Very High > or = 500 mg/dL Very low density lipoprotein (VLDL) cholesterol measurementOrdered By: Navya Mead on 11-11-2024 Very low density lipoprotein (VLDL) cholesterol measurement 13 mg/dL 5-40 [facility] VLDL Cholesterol 13 mg/dL 5-40 [facility] Vitamin D,25 Hydroxyon 11-11 Vitamin D 25-OH 48.6 ng/mL Normal [facility] Comment on above: Result Comment: Harriet min D 25(OH) Status Range Deficiency <20 ng/mL (50nmol/L) Insufficiency 20 - 30 ng/mL (50 - 75 nmol/L) Sufficiency 30 - 100 ng/mL (75 - 250 nmol/L) Toxicity >100 ng/mL (>250 nmol/L) Performed By: #### L 500.4050, L501.2450, L100.0100 #### [facility] [address] [facility] [place], [place], [address] White blood cell (WBC) count Ordered By: Navya Mead on 11-11-2024 WBC (Bld) [#/Vol] 5.9 10*3/uL 4.4-11.0 [facility] Fluor Guidance for Spine Inj on 10-24-2024 Fluor Guidance for Spine Inj [facility] Imaging Services [address] [place] [address] Fluor Guidance for Spine Inj MR#: [id number] Acct: [id number] Name: BRISSA STEELE Rep #: [id number] : 1970 F 54 From: Issac gee MD PCP: Dr. Tequila Renee MD [place] [facility] [place] Study: Fluor Guidance for Spine Inj Date of Exam: Exam# [id number] Ordering Dr: Philip Gerber MD [id number] PROCEDURE: Caudal block. DATE OF EXAMINATION: October 24, 2024. INDICATION: Female, 54 years old. Chronic low back pain. FLUOROSCOPY TIME (if supplied): (4.2 seconds) minutes/seconds. 4.47 mGy. One image was submitted. RAD/Fluor Guidance for Spine Inj IMPRESSION: Intraoperative imaging provided for caudal block. Electronically Signed: Issac Dasilva MD at 14:49 EST Reading Location ID and State: [facility] / [place] , Service support , CC: Dr. Philip Gerber MD; Dr. Tequila Renee MD Real Property Appraiser: Signed Normal [facility] Operative Reporton 5 Operative Report [facility] Medical Records Department [address] [place] [address] Operative Report 10/24/24 1015 MR#: [id number] Acct: [id number] Name: BRISSA STEELE Rep #: [id number] : 1970 54 From: Philip Gerber MD PCP: Dr. Tequila Renee MD Status:[facility] Location: [place] [address] Operative Report (Standard) Operative Information Date of Procedure: 10/24/24 Pre-Operative Diagnosis: 1 Post-Operative Diagnosis: 1 Surgery/Procedure Performed: 1 daytime caregiver: No Type of Anesthesia: IV Sedation and [...] MD; Dr. Tequila Renee MD Signed Normal [facility] Fluor Guidance for Spine Inj on 06-20-2024 Fluor Guidance for Spine Inj [facility] Imaging Services [address] [place] [address] Fluor Guidance for Spine Inj MR#: [id number] Acct: [id number] Name: BRISSA STEELE Rep #: [id number] : 1970 F 53 From: Issac gee MD PCP: Dr. Tequila Renee MD Status: [facility] Study: Fluor Guidance for Spine Inj Date of Exam: Exam# [id number] Ordering Dr: Philip Gerber MD [id number] PROCEDURE: Caudal epidural steroid injection. DATE OF EXAMINATION: June 20, 2024. INDICATION: Female, 53 years old. Low back pain. FLUOROSCOPY TIME (if supplied): (4 seconds) minutes/seconds. 4.39 mGy.. One image was submitted. RAD/Fluor Guidance for Spine Inj IMPRESSION: Intraoperative imaging provided for caudal block. Electronically Signed: Issac Dasilva MD at 14:30 EDT , CC: Dr. Philip Gerber MD; Dr. Tequila Renee MD Real Property Appraiser: Signed [facility] MR/POSTOP.[facility] 06-20-2024 MR/POSTOP.[facility] Medical Records Department [address] [place] [address] Anesthesia Postop Eval I 06/20/24 1114 MR#: [id number] Acct: [id number] Name: BRISSA STEELE Rep #: [id number] : 1970 53 From: Mimi Russell CRNA PCP: Dr. Tequila Renee MD Status:[facility] Y Race: C Location: [place] [address] Anesthesia: Postop Eval I Current Vital Signs [...] completed: Yes 06/20/24 1115 Date Mimi Russell PARTS ASSEMBLER Cosigner Signature: Date CC: Signed Normal [facility] MR/[id number] 06-20-2024 [facility] Medical Records Department [address] [place] [address] Anesthesia Postop Eval II 06/20/24 1235 MR#: [id number] Acct: [id number] Name: BRISSA STEELE Rep #: [id number] : 1970 53 From: Casimiro Sainz MD PCP: Dr. Tequila Renee MD Status:[facility] Y Race: C [place] [facility] [place] Anesthesia Postop Eval I Sum Postop Eval Completion status Anesthesia document: Postop Eval 1 completed: Yes Anesthesia Postop Eval I Summary Anesthesia Postop Eval I Summary: Anesthesia Postop Eval I: Assessment Summary Airway patent Yes 06/20/24 11:15 PARTS ASSEMBLER.SKOBY Spontaneous unlabored Yes 06/20/24 11:15 PARTS ASSEMBLER.SKOBY respirations Mental status Awake,Calm 06/20/24 11:15 PARTS ASSEMBLER.SKOBY nausea No 06/20/24 11:15 PARTS ASSEMBLER.SKOBY Vomiting No 06/20/24 11:15 PARTS ASSEMBLER.SKOBY Anesthesia Postop Eval I: Fluid Summary Crystalloid volume administer 200 06/20/24 11:15 PARTS ASSEMBLER.SKOBY (ml) Colloids volume administered ( ml) Blood Product volume administered (ml) Total IV fluid infused 200 06/20/24 11:15 PARTS ASSEMBLERPANFILO Anesthesia Postop Eval I: Summary Notes Anesthesia Complication No 06/20/24 11:15 PARTS ASSEMBLER.SKOBMar Anesthesia Complication Comment: Post-operative progress note Anesthesia: Postop Eval II Evaluation Mental status: Awake and Calm Pain Level: 1 nausea: No Vomiting: No Complications Anesthesia Complication: No 06/20/24 1236 Date Casimiro Sainz MD Cosigner Signature: Date CC: Signed Normal [facility] Operative Reporton 4 Operative Report [facility] Medical Records Department [address] [place] [address] Operative Report 06/20/24 1121 MR#: [id number] Acct: [id number] Name: BRISSA STEELE Rep #: [id number] : 1970 53 From: Philip Gerber MD PCP: Dr. Tequila Renee MD Status:[facility] Location: [place] [address] Report of Operation Date of Procedure: 06/20/24 [...] MD; Dr. Tequila Renee MD Signed Normal [facility] Whole blood hemoglobin A1c/t otal hemoglobin ratio (mass fraction)Ordered By: Dr. Mead on 02-02-2023 HbA1c (Bld) [Mass fraction] 5.3 % 3.8-5.6 [facility] Comment on above: Normal < 5.7 % Predi abetic 5.7 - 6.4 % Diabetic >or= 6.5 % Please note range changes. Basophil percentageOrdered B y: Dr. Renee on 12-04-2022 Bilirubin [Mass/Vol] 0.30 mg/dL 0.20-1.00 [facility] Comment on above: For patients on eltr ombopag therapy, use of Dimension [place] TBIL is not recommended. Chloride [Moles/Vol] 108 mmol/L 98-107 [facility] Cholesterol [Mass/Vol] 155 mg/dL <200 [facility] Comment on above: <200 mg/dL Desirable 200-240 mg/dL Borderline >240 mg/dL High Risk Glucose [Mass/Vol] 106 mg/dL 74-106 [facility] Comment on above: Fasting Glucose resu lt from 100 to 125 mg/dL suggests IMPAIRED HOMEOSTASIS per A.D.A. criteria. Potassium [Moles/Vol] 3.8 mmol/L 3.5-5.1 [facility] Protein [Mass/Vol] 7.0 g/dL 6.4-8.2 [facility] Sodium [Moles/Vol] 139 mmol/L 136-145 [facility] Triglyceride [Mass/Vol] 105 mg/dL <199 [facility] Comment on above: The drugs N-Acetylcy steine and Metamizole may falsely depress this assay.Serum Triglycerides Reference Interval Normal <150 mg/dL Borderline high 150 - 199 mg/dL High 200 - 499 mg/dL Very High > or = 500 mg/dL WBC (Bld) [#/Vol] 6.1 10*3/uL 4.4-11.0 [facility] Blood erythrocytes count (nu mber/volume)Ordered By: Dr. Renee on 12-04-2022 RBC (Bld) [#/Vol] 4.46 10*6/uL 4.2-5.4 [facility] Blood hemoglobin measurement (mass/volume)Ordered By: Dr. Renee on 12-04-2022 Hemoglobin (Bld) [Mass/Vol] 13.5 g/dL 12.0-15.0 [facility] Blood platelet mean volumeOr dered By: Dr. Renee on 12-04-2022 Platelet mean volume (Bld) [Entitic vol] 11.0 fL 6.2-12.0 [facility] Determination of erythrocyte mean corpuscular volume (MCV)Ordered By: Dr. Renee on 12-04-2022 MCV (RBC) [Entitic vol] 89.0 fL 81-99 [facility] Hematocrit Auto (Bld) [Volum e fraction]Ordered By: Dr. Renee on 12-04-2022 Hematocrit (Bld) [Volume fraction] 39.7 % 37-47 [facility] - Chemistry and C hemistry - challengeOrdered By: Dr. Renee on 12-04-2022 ALP [Catalytic activity/Vol] 78 U/L 45-117 [facility] ALT [Catalytic activity/Vol] 23 U/L 13-56 [facility] CO2 [Moles/Vol] 25.0 mmol/L 21.0-32.0 [facility] Cobalamin (Vitamin B12) [Mass/Vol] 743 pg/mL 211-911 [facility] Globulin (S) [Mass/Vol] 3.2 g/dL 2.2-4.2 [facility] Urea nitrogen/Creatinine [Mass ratio] 20.3 mg/mg 10-20 [facility] - Hematology and Cell countsOrdered By: Dr. Renee on 12-04-2022 Erythrocyte distribution width (RBC) [Entitic vol] 42.5 fL 35.1-43.9 [facility] Erythrocyte distribution width (RBC) [Ratio] 12.9 % 11.6-14.6 [facility] MCH (RBC) [Entitic mass] 30.3 pg 27.0-32.0 [facility] MCHC Auto (RBC) [Mass/Vol]Or dered By: Dr. Renee on 12-04-2022 MCHC (RBC) [Mass/Vol] 34.0 g/dL 32-36 [facility] No Panel InformationOrdered By: Dr. Renee on 12-04-2022 Estimated GFR (MDRD) Amer 116 mL/min >60 [facility] Comment on above: GFR Calc Estimated GFR (MDRD) Non-Af Amer 96 mL/min >60 [facility] Comment on above: Non- GFR Calc Thyroid Stimulating Hormone (TSH) 2.26 uIU/mL 0.358-3.74 [facility] Platelets bldOrdered By: Dr. Renee on 12-04-2022 Platelets (Bld) [#/Vol] 223 10*3/uL 150-450 [facility] Serum or plasma albumin elizabet urement (mass/volume)Ordered By: Dr. Renee on 12-04-2022 Albumin [Mass/Vol] 3.8 g/dL 3.2-5.0 [facility] Serum or plasma albumin/glob ulin mass ratioOrdered By: Dr. Renee on 12-04-2022 Albumin/Globulin [Mass ratio] 1.2 {ratio} 0.9-2.4 [facility] Serum or plasma calcium elizabet urement (mass/volume)Ordered By: Dr. Renee on 12-04-2022 Calcium [Mass/Vol] 9.0 mg/dL 8.5-10.1 [facility] Serum or plasma cholesterol in HDL measurement (mass/volume)Ordered By: Dr. Renee on 12-04-2022 Cholesterol in HDL [Mass/Vol] 47 mg/dL >40 [facility] Comment on above: The drugs N-Acetylcy steine and Metamizole may falsely depress this assay. Reference Range HDL <40 mg/dL Low HDL Cholesterol HDL >or= 60 mg/dL High HDL Cholesterol Serum or plasma cholesterol in VLDL measurement (mass/volume)Ordered By: Dr. Renee on 12-04-2022 Cholesterol in VLDL [Mass/Vol] 21 mg/dL 5-40 [facility] Serum or plasma creatinine m easurement (mass/volume)Ordered By: Dr. Renee on 12-04-2022 Creatinine [Mass/Vol] 0.69 mg/dL 0.55-1.02 [facility] Comment on above: The validity of the calculated GFR & GFRAA in patients over 70 years has not been determined. Clinical correlation is essential. Serum or plasma low density lipoprotein (LDL) cholesterol measurement (mass/volume)Ordered By: Dr. Renee on 12-04-2022 Cholesterol in LDL [Mass/Vol] 87 mg/dL 0-130 [facility] Serum or plasma urea nitroge n measurement (mass/volume)Ordered By: Dr. Renee on 12-04-2022 Urea nitrogen [Mass/Vol] 14 mg/dL 7-18 [facility] Thin prep Papanicolaou smear with manual screeningOrdered By: Dr. Renee on 12-04-2022 Thin prep Papanicolaou smear with manual screening 17 U/L 15-37 [facility] Thin prep Papanicolaou smear with manual screening 6 5-15 [facility] Office Visit (Family Medicin e)on 11-25-2022 Follow-up visit Diagnoses/Problems BMI 39.0-39.9,adult (V85.39) (Z68.39) History of depression (V11.8) (Z86.59) Dyspnea (786.09) (R06.00) GERD (gastroesophageal reflux disease) (530.81) (K21.9) Other screening mammogram (V76.12) (Z12.31) Weight gain (783.1) (R63.5) Orders Dyspnea Complete PFT w/o ABG; Status:Hold For - Scheduling; Requested for:[id number]; Dyspnea, PMH: History of depression Xray Chest 2 View PA + Lateral; Status:Hold For - Scheduling; Requested for:[id number]; Radiologist to Determine Optimal Study : Y What are the patient's signs and symptoms? : LIZA PMH: History of depression Complete Blood Count; Status:Active; Requested for:91Unh2274; Comprehensive Metabolic Panel; Status:Active; Requested for:65Fyk3076; Electrocardiogram EKG; Status:Hold For - Scheduling; Requested for:60Pse2617; Lipid Panel; Status:Active; Requested for:70Nmu9738; TSH WITH REFLEX TO FREE T4 IF ABNORMAL; Status:Active; Requested for:84Gvn6908; Vit B12 Bind.Capacity; Status:Active; Requested for:80Gwm1723; Patient Discussion/Summary Discussed getting started on workup, plan followup 2 mos, consider additional testing depending ont hese results, ei sleep study, echo, etc. Call concerns. 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, BLE History of Present [...] 1 CAPSULE Daily Vitals Vital Signs Recorded: [id number] 08:19AM Heart Rate92 Iidsvspc284, LUE, Sitting Qjyiryogj00, LUE, Sitting Height5 ft 3.5 in Xsnzjb317 lb 5 oz BMI Jckvbadyim09.81 kg/m2 BSA Calculated2.06 Tobacco Useb) No Falls Screening (Age 18+)a) No falls within the last year O2 Xliggftomv91 Physical Exam Constitutional: Alert and in no [...] Nov 25 2022 8:50AM EST (Author) Normal [employer] Tobacco Screening.on 023 Fall risk assessment a) No falls within the last year [facility] [employer] Phone: Tobacco use status CPHS b) No [facility] ([facility] Care F orms)on 01-08-2022 Follow-up visit Diagnosis/Problems Assessed Other screening mammogram (V76.12) (Z12.31) Orders Depression Renew: Venlafaxine HCl ER 75 MG Oral Capsule Extended Release 24 Hour; TAKE 2 CAPSULE Daily Rx By: Tequila Renee; Dispense: 0 Days ; #:180 Capsule; Refill: 1;For: Depression; ZEYAD = N; Sent To: [facility]; Last Updated By: Jade Garcia; 01/08/2022 9:05:09 AM GERD (gastroesophageal reflux disease) Changed: From Lansoprazole 30 MG Oral Capsule Delayed Release Take 1 capsule twice daily To Lansoprazole 30 MG Oral Capsule Delayed Release (Prevacid) TAKE 2 CAPSULE Daily Rx By: Tequila Renee; Dispense: 90 Days ; #:180 Capsule; Refill: 1;For: GERD (gastroesophageal reflux disease); ZEYAD = N; Sent To: [facility]; Last Updated By: Jade Garcia; 01/08/2022 9:05:09 AM Other screening mammogram Mamm - Screening Mammogram w/ Tomosynthesis; Status:Hold For - Scheduling; Requested for:08Jan2022; Perform:[facility]; Due:41Skw0582;Ordered; For:Other screening mammogram; Ordered By:Tequila Renee; Radiologist [...] 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 Depression, stable on current medication, wishes [...] 24 HourTAKE 2 CAPSULE Daily Allergies Medication [employer]amorpkimmie MCDONALD Recorded By: Rosalie Rey; 11/05/2020 8:28:48 AM Vitals Vital Signs Recorded: 08Jan2022 09:03AM Heart Rate84 Dlahvzjy244 Dgrjtongp23 Height5 ft 3.5 in Iyyrus468 lb BMI Lphtzgbdvn65.36 kg/m2 BSA Calculated2.03 Tobacco Useb) No Physical [...] Jan 08 2022 9:39AM EST (Author) Normal [employer] Tobacco Screening.on 022 Tobacco use status CPHS b) No M [facility] 205 DO Work Phone: Vital Signs Date Time Vital Sign Value Performing Clinician Facility 04-28-2025 08:07-0400 Body height 162.[address] Tequila Renee MD Work Phone: [facility] 04-28-2025 08:07-0400 Body mass index (BMI) [Ratio] 36 kg/m2 Dr. Tequila Renee MD Work Phone: [facility] 04-28-2025 08:07-0400 Body weight 95.[address] Tequila Renee MD Work Phone: [facility] 03-30-2025 10:48-0400 Body height 160 cm Tequila Renee MD Work Phone: [facility] 03-30-2025 10:48-0400 Body mass index (BMI) [Ratio] 37.55 kg/m2 Tequila Renee MD Work Phone: [facility] 03-30-2025 10:48-0400 Body weight 96.16 kg Tequila Renee MD Work Phone: [facility] 03-30-2025 10:48-0400 Diastolic blood pressure 80 mm[Hg] Tequila Renee MD Work Phone: [facility] 03-30-2025 10:48-0400 Heart rate 84 /min Tequila Renee MD Work Phone: [facility] 03-30-2025 10:48-0400 Systolic blood pressure 134 mm[Hg] Tequila Renee MD Work Phone: [facility] 03-28-2025 09:44-0400 Body temperature 98.8 [degF] Dr. Tequila Renee MD Work Phone: [facility] 03-28-2025 09:44-0400 Diastolic blood pressure 61 mm[Hg] Dr. Tequila Renee MD Work Phone: [facility] 03-28-2025 09:44-0400 Heart rate 79 /min Dr. Tequila Renee MD Work Phone: [facility] 03-28-2025 09:44-0400 Respiratory rate 12 /min Dr. Tequila Renee MD Work Phone: [facility] 03-28-2025 09:44-0400 SaO2% (BldA) [Mass fraction] 91 % Dr. Tequila Renee MD Work Phone: [facility] 03-28-2025 09:44-0400 Systolic blood pressure 98 mm[Hg] Dr. Tequila Renee MD Work Phone: [facility] 03-25-2025 13:08-0400 Body height 162.[address] Tequila Renee MD Work Phone: [facility] 03-25-2025 13:08-0400 Body weight 98.[address] Tequila Renee MD Work Phone: [facility] 03-25-2025 00:59-0400 Body mass index (BMI) [Ratio] 37.3 kg/m2 Dr. Tequila Renee MD Work Phone: [facility] 03-25-2025 00:41-0400 Diastolic blood pressure 55 mm[Hg] Dr. Tequila Renee MD Work Phone: [phone] [place] [address] 03-25-2025 00:41-0400 Heart rate 94 /min Dr. Tequila Renee MD Work Phone: [phone] [place] [address] 03-25-2025 00:41-0400 Respiratory rate 15 /min Dr. Tequila Renee MD Work Phone: 9(963)529-757424 [place] [address] 03-25-2025 00:41-0400 SaO2% (BldA) [Mass fraction] 92 % Dr. Tequila Renee MD Work Phone: 1(580)349-980924 [place] [address] 03-25-2025 00:41-0400 Systolic blood pressure 101 mm[Hg] Dr. Tequila Renee MD Work Phone: 1(159)057-210824 [place] [address] 03-24-2025 23:32-0400 Body temperature 100.6 [degF] Dr. Tequila Renee MD Work Phone: 1(538)191-425724 [place] [address] 03-24-2025 16:04-0400 Body height 162.[address] Tequila Renee MD Work Phone: 9(873)571-324724 [place] [address] 03-24-2025 16:04-0400 Body mass index (BMI) [Ratio] 37.2 kg/m2 Dr. Tequila Renee MD Work Phone: 4(823)050-946724 [place] [address] 03-24-2025 16:04-0400 Body weight 98.[address] Tequila Renee MD Work Phone: 8(244)617-654624 [place] [address] 02-08-2025 13:06-0400 Body height 162.[address] Tequila Renee MD Work Phone: 3(543)697-975024 [place] [address] 02-08-2025 12:55-0400 Diastolic blood pressure 58 mm[Hg] Dr. Tequila Renee MD Work Phone: 5(068)865-242824 [place] [address] 02-08-2025 12:55-0400 Systolic blood pressure 97 mm[Hg] Dr. Tequila Renee MD Work Phone: [facility] 02-03-2025 08:23-0400 Body height 160 cm Tequila Renee MD Work Phone: [facility] 02-03-2025 08:23-0400 Body mass index (BMI) [Ratio] 37.55 kg/m2 Tequila Renee MD Work Phone: [facility] 02-03-2025 08:23-0400 Body weight 96.16 kg Tequila Renee MD Work Phone: [facility] 02-03-2025 08:23-0400 Diastolic blood pressure 78 mm[Hg] Tequila Renee MD Work Phone: [facility] 02-03-2025 08:23-0400 Heart rate 76 /min Tequila Renee MD Work Phone: [facility] 02-03-2025 08:23-0400 Systolic blood pressure 130 mm[Hg] Tequila Renee MD Work Phone: [facility] 01-09-2025 08:35-0400 Body temperature 97.9 [degF] Dr. Tequila Renee MD Work Phone: [facility] 01-09-2025 08:35-0400 Diastolic blood pressure 59 mm[Hg] Dr. Tequila Renee MD Work Phone: [facility] 01-09-2025 08:35-0400 Heart rate 75 /min Dr. Tequila Renee MD Work Phone: [facility] 01-09-2025 08:35-0400 Respiratory rate 16 /min Dr. Tequila Renee MD Work Phone: [facility] 01-09-2025 08:35-0400 SaO2% (BldA) [Mass fraction] 95 % Dr. Tequila Renee MD Work Phone: [facility] 01-09-2025 08:35-0400 Systolic blood pressure 95 mm[Hg] Dr. Tequila Renee MD Work Phone: 5(995)824-128024 [place] [address] 01-09-2025 06:49-0400 Body height 162.[address] Tequila Renee MD Work Phone: 7(292)884-327924 [place] [address] 01-09-2025 06:49-0400 Body mass index (BMI) [Ratio] 36.3 kg/m2 Dr. Tequila Renee MD Work Phone: 4(836)515-724583 [place] [address] 01-09-2025 06:49-0400 Body weight [address] Tequila Renee MD Work Phone: 0(711)545-140524 [place] [address] 11-11-2024 09:32-0500 Body mass index (BMI) [Ratio] 36.1 kg/m2 Dr. Tequila Renee MD Work Phone: 5(146)394-553183 [place] [address] 11-11-2024 09:32-0500 Body weight 95.[address] Tequila Renee MD Work Phone: 9(791)423-146983 [place] [address] 11-11-2024 09:32-0500 Diastolic blood pressure 70 mm[Hg] Dr. Tequila Renee MD Work Phone: 5(996)881-663083 [place] [address] 11-11-2024 09:32-0500 Heart rate 88 /min Dr. Tequila Renee MD Work Phone: 0(132)114-889483 [place] [address] 11-11-2024 09:32-0500 Systolic blood pressure 104 mm[Hg] Dr. Tequila Renee MD Work Phone: 2(751)221-838383 [place] [address] 10-24-2024 10:35-0500 Body temperature 98.9 [degF] Dr. Tequila Renee MD Work Phone: 5(812)302-281983 [place] [address] 10-24-2024 10:35-0500 Diastolic blood pressure 71 mm[Hg] Dr. Tequila Renee MD Work Phone: 1(352)748-727183 [place] [address] 10-24-2024 10:35-0500 Heart rate 69 /min Dr. Tequila Renee MD Work Phone: 8(996)427-767324 [place] [address] 10-24-2024 10:35-0500 Respiratory rate 16 /min Dr. Tequila Renee MD Work Phone: 7(748)838-573583 [place] [address] 10-24-2024 10:35-0500 SaO2% (BldA) [Mass fraction] 95 % Dr. Tequila Renee MD Work Phone: [facility] 10-24-2024 10:35-0500 Systolic blood pressure 103 mm[Hg] Dr. Tequila Renee MD Work Phone: [facility] 10-24-2024 09:17-0500 Body mass index (BMI) [Ratio] 38.4 kg/m2 Dr. Tequila Renee MD Work Phone: [facility] 10-24-2024 09:17-0500 Body weight 101.[address] Tequila Renee MD Work Phone: [facility] 12-07-2023 10:53-0500 Body temperature 97.7 [degF] Dr. Tequila Renee Work Phone: [facility] 12-07-2023 10:53-0500 Diastolic blood pressure 74 mm[Hg] Dr. Tequila Renee Work Phone: [facility] 12-07-2023 10:53-0500 Heart rate 72 /min Dr. Tequila Renee Work Phone: [facility] 12-07-2023 10:53-0500 Respiratory rate 16 /min Dr. Tequila Renee Work Phone: [facility] 12-07-2023 10:53-0500 SaO2% (BldA) [Mass fraction] 98 % Dr. Tequila Renee Work Phone: [facility] 12-07-2023 10:53-0500 Systolic blood pressure 107 mm[Hg] Dr. Tequila Renee Work Phone: [facility] 12-07-2023 09:26-0500 Body height 162.[address] Tequila Renee Work Phone: [facility] 12-07-2023 09:26-0500 Body mass index (BMI) [Ratio] 29.7 kg/m2 Dr. Tequila Renee Work Phone: [facility] 12-07-2023 09:26-0500 Body weight 78.[address] Tequila Renee Work Phone: [facility] 11-16-2023 09:52-0500 Body mass index (BMI) [Ratio] 29 kg/m2 Dr. Tequila Renee Work Phone: [facility] 11-16-2023 09:52-0500 Body weight 76.[address] Tequila Renee Work Phone: [facility] 11-16-2023 09:52-0500 Diastolic blood pressure 61 mm[Hg] Dr. Tequila Renee Work Phone: [facility] 11-16-2023 09:52-0500 Heart rate 73 /min Dr. Tequila Renee Work Phone: [facility] 11-16-2023 09:52-0500 Systolic blood pressure 97 mm[Hg] Dr. Tequila Renee Work Phone: [facility] 09-16-2023 07:15-0500 Body temperature 97.5 [degF] Dr. Tequila Renee Work Phone: [facility] 09-16-2023 07:15-0500 Diastolic blood pressure 60 mm[Hg] Dr. Tequila Renee Work Phone: [facility] 09-16-2023 07:15-0500 Heart rate 72 /min Dr. Tequila Renee Work Phone: [facility] 09-16-2023 07:15-0500 Respiratory rate 16 /min Dr. Tequila Renee Work Phone: [facility] 09-16-2023 07:15-0500 SaO2% (BldA) [Mass fraction] 100 % Dr. Tequila Renee Work Phone: [facility] 09-16-2023 07:15-0500 Systolic blood pressure 91 mm[Hg] Dr. Tequila Renee Work Phone: [facility] 09-16-2023 06:00-0500 Body height 162.[address] Tequila Renee Work Phone: [facility] 09-16-2023 06:00-0500 Body mass index (BMI) [Ratio] 27.3 kg/m2 Dr. Tequila Renee Work Phone: [facility] 09-16-2023 06:00-0500 Body weight 72.[address] Tequila Renee Work Phone: [facility] 09-07-2023 14:02-0500 Body height 162.[address] Tequila Renee Work Phone: [facility] 09-07-2023 14:02-0500 Body mass index (BMI) [Ratio] 27.8 kg/m2 Dr. Tequila Renee Work Phone: [facility] 09-07-2023 14:02-0500 Body temperature 97.2 [degF] Dr. Tequila Renee Work Phone: [facility] 09-07-2023 14:02-0500 Body weight 73.[address] Tequila Renee Work Phone: [facility] 09-07-2023 14:02-0500 Diastolic blood pressure 79 mm[Hg] Dr. Tequila Renee Work Phone: [facility] 09-07-2023 14:02-0500 Heart rate 72 /min Dr. Tequila Renee Work Phone: [facility] 09-07-2023 14:02-0500 Respiratory rate 17 /min Dr. Tequila Renee Work Phone: [facility] 09-07-2023 14:02-0500 SaO2% (BldA) [Mass fraction] 99 % Dr. Tequila Renee Work Phone: [facility] 09-07-2023 14:02-0500 Systolic blood pressure 122 mm[Hg] Dr. Tequila Renee Work Phone: [facility] 08-26-2023 11:40-0500 Body mass index (BMI) [Ratio] 27.6 kg/m2 Dr. Tequila Renee Work Phone: [facility] 08-26-2023 11:40-0500 Body weight 73.[address] Tequila Renee Work Phone: [facility] 08-26-2023 11:40-0500 Diastolic blood pressure 76 mm[Hg] Dr. Tequila Renee Work Phone: [facility] 08-26-2023 11:40-0500 Heart rate 74 /min Dr. Tequila Renee Work Phone: [facility] 08-26-2023 11:40-0500 Systolic blood pressure 109 mm[Hg] Dr. Tequila Renee Work Phone: 5(273)775-607324 [place] [address] 05-22-2023 08:31-0400 Body mass index (BMI) [Ratio] 31.1 kg/m2 Dr. Tequila Renee Work Phone: 2(481)276-262624 [place] [address] 05-22-2023 08:31-0400 Body weight 82.[address] Tequila Renee Work Phone: [facility] 05-22-2023 08:31-0400 Diastolic blood pressure 58 mm[Hg] Dr. Tequila Renee Work Phone: [facility] 05-22-2023 08:31-0400 Heart rate 78 /min Dr. Tequila Renee Work Phone: [facility] 05-22-2023 08:31-0400 Systolic blood pressure 121 mm[Hg] Dr. Tequila Renee Work Phone: [facility] 02-11-2023 06:57-0400 Body height 162.[address] Tequila Renee Work Phone: [facility] 02-11-2023 06:57-0400 Body mass index (BMI) [Ratio] 36.8 kg/m2 Dr. Tequila Renee Work Phone: [facility] 02-11-2023 06:57-0400 Body temperature 96.3 [degF] Dr. Tequila Renee Work Phone: [facility] 02-11-2023 06:57-0400 Body weight 97.[address] Tequila Renee Work Phone: [facility] 02-11-2023 06:57-0400 Diastolic blood pressure 72 mm[Hg] Dr. Tequila Renee Work Phone: [facility] 02-11-2023 06:57-0400 Heart rate 78 /min Dr. Tequila Renee Work Phone: [facility] 02-11-2023 06:57-0400 Respiratory rate 18 /min Dr. Tequila Renee Work Phone: [facility] 02-11-2023 06:57-0400 SaO2% (BldA) [Mass fraction] 98 % Dr. Tequila Renee Work Phone: [facility] 02-11-2023 06:57-0400 Systolic blood pressure 104 mm[Hg] Dr. Tequila Renee Work Phone: [facility] 02-06-2023 14:14-0400 Body height 162.[address] Tequila Renee Work Phone: [facility] 02-06-2023 14:14-0400 Body mass index (BMI) [Ratio] 37.8 kg/m2 Dr. Tequila Renee Work Phone: [facility] 02-06-2023 14:14-0400 Body temperature 96.8 [degF] Dr. Tequila Renee Work Phone: [facility] 02-06-2023 14:14-0400 Body weight 99.[address] Tequila Renee Work Phone: [facility] 02-06-2023 14:14-0400 Diastolic blood pressure 81 mm[Hg] Dr. Tequila Renee Work Phone: [facility] 02-06-2023 14:14-0400 Heart rate 70 /min Dr. Tequila Renee Work Phone: [facility] 02-06-2023 14:14-0400 Respiratory rate 18 /min Dr. Tequila Renee Work Phone: [facility] 02-06-2023 14:14-0400 SaO2% (BldA) [Mass fraction] 97 % Dr. Tequila Renee Work Phone: [facility] 02-06-2023 14:14-0400 Systolic blood pressure 116 mm[Hg] Dr. Tequila Renee Work Phone: [facility] 02-06-2023 08:50-0400 Body mass index (BMI) [Ratio] 37.6 kg/m2 Dr. Tequila Renee Work Phone: [facility] 02-06-2023 08:50-0400 Body weight 99.[address] Tequila Renee Work Phone: 4(569)078-083924 [place] [address] 02-06-2023 08:50-0400 Diastolic blood pressure 76 mm[Hg] Dr. Tequila Renee Work Phone: 7(641)171-551524 [place] [address] 02-06-2023 08:50-0400 Heart rate 72 /min Dr. Tequila Renee Work Phone: [facility] 02-06-2023 08:50-0400 Systolic blood pressure 118 mm[Hg] Dr. Tequila Renee Work Phone: [facility] 02-02-2023 10:50-0400 Body temperature 96.9 [degF] Dr. Tequila Renee Work Phone: [facility] 02-02-2023 10:50-0400 Diastolic blood pressure 57 mm[Hg] Dr. Tequila Renee Work Phone: [facility] 02-02-2023 10:50-0400 Heart rate 73 /min Dr. Tequila Renee Work Phone: [facility] 02-02-2023 10:50-0400 Respiratory rate 16 /min Dr. Tequila Renee Work Phone: [facility] 02-02-2023 10:50-0400 SaO2% (BldA) [Mass fraction] 97 % Dr. Tequila Renee Work Phone: [facility] 02-02-2023 10:50-0400 Systolic blood pressure 107 mm[Hg] Dr. Tequila Renee Work Phone: [facility] 02-02-2023 09:49-0400 Body height 162.[address] Tequila Renee Work Phone: [facility] 02-02-2023 09:49-0400 Body mass index (BMI) [Ratio] 37.8 kg/m2 Dr. Tequila Renee Work Phone: 2(676)818-911224 [place] [address] 02-02-2023 09:49-0400 Body weight [address] Tequila Renee Work Phone: 8(253)813-159524 [place] [address] 01-23-2023 08:10-0400 Body mass index (BMI) [Ratio] 39.5 kg/m2 Dr. Tequila Renee Work Phone: 7(316)843-763224 [place] [address] 01-23-2023 08:10-0400 Body weight 104.[address] Tequila Renee Work Phone: 0(535)670-870924 [place] [address] 01-23-2023 08:10-0400 Diastolic blood pressure 82 mm[Hg] Dr. Tequila Renee Work Phone: 1(827)041-709924 [place] [address] 01-23-2023 08:10-0400 Systolic blood pressure 113 mm[Hg] Dr. Tequila Renee Work Phone: 2(572)127-146324 [place] [address] 01-13-2023 08:27-0400 Body height 160 cm Tequila Renee MD Work Phone: [facility] 01-13-2023 08:27-0400 Body mass index (BMI) [Ratio] 40.07 kg/m2 Tequila Renee MD Work Phone: [facility] 01-13-2023 08:27-0400 Body weight 102.6 kg Tequila Renee MD Work Phone: [facility] 01-13-2023 08:27-0400 Diastolic blood pressure 80 mm[Hg] Tequila Renee MD Work Phone: 1(753)460-917010 [place] [address] 01-13-2023 08:27-0400 Heart rate 96 /min Tequila Renee MD Work Phone: [facility] 01-13-2023 08:27-0400 Systolic blood pressure 130 mm[Hg] Tequila Renee MD Work Phone: [facility] 11-25-2022 08:19-0500 Body height 161.29 cm Tequila Renee Work Phone: [facility] Work Phone: 11-25-2022 08:19-0500 Body mass index (BMI) [Ratio] 39.81 kg/m2 Tequila Renee Work Phone: [facility] Work Phone: 11-25-2022 08:19-0500 Body surface area Derived from formula 2.06 m2 Tequila Renee Work Phone: [facility] Work Phone: 11-25-2022 08:19-0500 Body weight 103.56 kg Tequila Renee Work Phone: [facility] Work Phone: 11-25-2022 08:19-0500 Diastolic blood pressure 78 mm[Hg] Tequila Renee Work Phone: [facility] Work Phone: 11-25-2022 08:19-0500 Heart rate 92 /min Tequila Renee Work Phone: [facility] Work Phone: 11-25-2022 08:19-0500 SaO2% (BldA) [Mass fraction] 99 % Tequila Renee Work Phone: [facility] Work Phone: 11-25-2022 08:19-0500 Systolic blood pressure 110 mm[Hg] Tequila Renee Work Phone: [facility] Work Phone: 09-02-2022 17:00-0500 Body temperature 98.6 [degF] Dr. Tequila Renee Work Phone: [facility] 09-02-2022 17:00-0500 Diastolic blood pressure 88 mm[Hg] Dr. Tequila Renee Work Phone: [facility] 09-02-2022 17:00-0500 Heart rate 122 /min Dr. Tequila Renee Work Phone: [facility] 09-02-2022 17:00-0500 Respiratory rate 20 /min Dr. Tequila Renee Work Phone: [facility] 09-02-2022 17:00-0500 SaO2% (BldA) [Mass fraction] 95 % Dr. Tequila Renee Work Phone: [facility] 09-02-2022 17:00-0500 Systolic blood pressure 138 mm[Hg] Dr. Tequila Renee Work Phone: [facility] 07-24-2022 15:48-0400 Body height 162.[address] Tequila Renee Work Phone: [facility] Work Phone: 07-24-2022 15:48-0400 Body mass index (BMI) [Ratio] 37.5 kg/m2 Dr. Tequila Renee Work Phone: [facility] Work Phone: 07-24-2022 15:48-0400 Body weight 99.[address] Tequila Renee Work Phone: [facility] Work Phone: 07-24-2022 15:48-0400 Diastolic blood pressure 80 mm[Hg] Dr. Tequila Renee Work Phone: [facility] Work Phone: 07-24-2022 15:48-0400 Systolic blood pressure 120 mm[Hg] Dr. Tequila Renee Work Phone: [facility] Work Phone: 01-08-2022 09:03-0400 Body height 161.29 cm Tequila Renee Work Phone: [facility] 205 DO Work Phone: 01-08-2022 09:03-0400 Body mass index (BMI) [Ratio] 38.36 kg/m2 Tequila Renee Work Phone: [facility] 205 DO Work Phone: 01-08-2022 09:03-0400 Body surface area Derived from formula 2.03 m2 Tequila Renee Work Phone: [facility] 205 DO Work Phone: 01-08-2022 09:03-0400 Body weight 99.79 kg Tequila Renee Work Phone: [facility] 205 DO Work Phone: 01-08-2022 09:03-0400 Diastolic blood pressure 74 mm[Hg] Tequila Renee Work Phone: [facility] 205 DO Work Phone: 01-08-2022 09:03-0400 Heart rate 84 /min Tequila Renee Work Phone: [facility] 205 DO Work Phone: 01-08-2022 09:03-0400 Systolic blood pressure 126 mm[Hg] Tequila Renee Work Phone: [facility] 205 DO Work Phone: Encounters Encounter Date Encounter Type Care Provider Facility Start: 05-08-2025 ambulatory Tequila Renee Facility: [facility] Start: 05-05-2025 Encounter for other preprocedural examination [facility] Start: 04-28-2025 End: 04-28-[address] Ottoniel Bueno MD -[facility] Work Phone: Start: 04-28-2025 End: 04-28-[address] Tequila Renee MD Work Phone: -[facility] Start: 04-24-2025 End: 04-24-[address] Tequila Renee MD Work Phone: -[facility] Start: 04-24-2025 End: 04-24-[address] Ottoniel Bueno MD -[facility] Work Phone: Start: 04-24-2025 End: 04-24-2025 ambulatory Tequila Renee Facility:[facility] Start: 04-17-2025 End: 04-17-2025 Patient encounter procedure Darcie COLBERT -[facility] Work Phone: Start: 04-17-2025 End: 04-17-[address] Tequila Renee MD Work Phone: -[facility] Start: 03-30-2025 End: 03-30-2025 ambulatory TEQUILA Donato [facility] Ambulatory Start: 03-30-2025 End: 03-30-2025 Transitional care manage srvc 14 day discharge Tequila Renee MD Work Phone: [facility] Comment on above: Nausea (Primary Dx); Ischemic colitis (Multi) Start: 03-28-2025 Non-patient / Non-visit Dr. Bry Dominguez DO [facility] Work Phone: Start: 03-27-2025 ambulatory Tequila Renee [place] [facility] Start: 03-27-2025 Non-patient / Non-visit Dr. Bry Dominguez DO [facility] Work Phone: Start: 03-26-2025 Non-patient / Non-visit Dr. Bry Dominguez [facility] Work Phone: Start: 03-25-2025 Non-patient / Non-visit Chele Manriquez DO [facility] Start: 03-25-2025 Non-patient / Non-visit Dr. Bry Dominguez DO [facility] Work Phone: Start: 03-25-2025 ambulatory Bry Toribio Facility[place] [facility] Start: 03-25-2025 End: 03-28-2025 Evaluation and management of inpatient Dr. Jason Watters DO -[facility] Work Phone: Start: 02-14-2025 ambulatory Tequila Renee [place] [facility] Start: 02-08-2025 End: 02-08-[address] Tequila Renee MD Work Phone: [facility] Work Phone: Start: 02-08-2025 End: 02-08-[address] Navya Mead MD -Laboratory, Specimen Work Phone: Start: 02-08-2025 End: 02-08-[address] Navya Mead MD -[facility] Work Phone: Start: 02-08-2025 End: 02-08-2025 ambulatory Tequila Renee [place] Start: 02-08-2025 End: 02-08-2025 ambulatory Tequila Renee Facility:[facility] Start: 02-03-2025 End: 02-03-2025 Patient encounter status Tequila Renee MD Work Phone: [facility] Work Phone: Start: 02-03-2025 End: 02-03-2025 Periodic preventive med est patient 40-64yrs Tequila Renee MD Work Phone: [facility] Comment on above: Screening breast exa mination (Primary Dx); Wellness examination Start: 02-03-2025 End: 02-03-2025 ambulatory TEQUILA RENEE [facility] Ambulatory Start: 01-31-2025 End: 01-31-[address] Navay Mead MD -[facility] Work Phone: Start: 01-31-2025 End: 01-31-2025 ambulatory Tequila Renee Facility:[facility] Start: 01-09-2025 End: 01-09-2025 Admission to same day surgery center Dr. Philip Gerber MD -[facility] Start: 01-09-2025 End: 01-09-[address] Tequila Renee MD Work Phone: [facility] Work Phone: Start: 01-06-2025 End: 01-06-[address] Tequila Renee MD Work Phone: [facility] Work Phone: Start: 01-06-2025 End: 01-06-[address] Philip Gerber MD -[facility] Work Phone: Start: 01-06-2025 End: 01-06-2025 ambulatory Tequila Renee Facility:[facility] Start: 01-02-2025 End: 01-02-[address] Tequila Renee MD Work Phone: [facility] Work Phone: Start: 01-02-2025 End: 01-02-[address] Philip Gerber MD -Physical Therapy Work Phone: Start: 01-02-[address] Elisa Gerber MD -Physical Therapy Work Phone: Start: 11-11-2024 End: 11-11-[address] Navya Mead MD -Lab, [facility] Start: 11-11-2024 End: 11-11-[address] Navya Mead MD -[facility] Work Phone: Start: 11-11-2024 End: 11-11-2024 ambulatory Tequila Renee [place] Start: 11-11-2024 End: 11-11-2024 ambulatory Tequila Renee Facility:[facility] Start: 10-24-2024 End: 10-24-2024 Admission to same day surgery center Dr. Philip Gerber MD -[facility] Start: 10-24-2024 End: 10-24-2024 ambulatory Tequila Renee Facility:[facility] Start: 06-20-2024 End: 06-20-2024 ambulatory Tequila Renee Facility:[facility] Start: 06-07-2024 ambulatory Tequila Renee [place] [facility] Start: 12-07-2023 End: 12-07-2023 Admission to same day surgery center Dr. Tequila Renee Work Phone: [facility] Start: 12-07-2023 End: 12-07-[address] Tequila Renee Work Phone: [facility] Work Phone: Start: 11-16-2023 End: 11-16-[address] Tequila Renee Work Phone: [facility] Work Phone: Start: 09-23-2023 End: 09-23-[address] Tequila Renee Work Phone: [facility] Work Phone: Start: 09-23-2023 End: 09-23-[address] Tequila [facility]enee [facility] Phone[facility]: Start: 09-16-2023 Non-patient / Non-visit Dr. Tequila Renee Work Phone: [facility] Start: 09-16-2023 End: 09-16-2023 Admission to same day surgery center Dr. Tequila Renee Work Phone: [facility] Start: 09-16-2023 End: 09-16-[address] Tequila Renee Work Phone: [facility] Work Phone: Start: 09-09-2023 End: 09-09-2023 Non-patient / Non-visit Dr. Tequila Renee Work Phone: [facility] [facility] Work Phone: Start: 09-09-2023 End: 09-09-[address] Tequila Renee Work Phone: [facility] Work Phone: Start: 09-09-2023 End: 09-09-[address] Tequila Renee Work Phone: [facility] Work Phone: Start: 09-07-2023 End: 09-07-[address] Tequila Renee Work Phone: [facility] Work Phone: Start: 08-26-2023 End: 08-26-[address] Tequila Renee Work Phone: [facility] Work Phone: Start: 08-03-2023 End: 08-03-[address] Tequila Renee Work Phone: [facility] Work Phone: Start: 06-25-2023 End: 06-25-[address] Tequila Renee Work Phone: [facility] Work Phone: Start: 06-25-2023 End: 06-25-[address] Tequila Renee Work Phone: [facility]-Physical Therapy Work Phone: Start: 06-25-[address] Tequila Renee Work Phone: [facility]-Physical Therapy Work Phone: Start: 05-22-2023 End: 05-22-[address] Tequila Renee Work Phone: [facility] Work Phone: Start: 03-19-2023 End: 03-19-[address] Tequila Renee Work Phone: [facility] Work Phone: Start: 03-19-2023 End: 03-19-[address] Tequila Renee Work Phone: [facility]-Outpatient Breast Imaging Start: 03-05-2023 End: 03-05-[address] Tequila Renee Work Phone: [facility] Work Phone: Start: 03-05-2023 End: 03-05-[address] Tequila Renee Work Phone: [facility] Start: 02-21-2023 End: 02-21-[address] Tequila Renee Work Phone: [facility] Work Phone: Start: 02-21-2023 End: 02-21-[address] Tequila Renee Work Phone: [facility] Start: 02-11-2023 End: 02-11-[address] [facility] Start: 02-06-2023 End: 02-06-2023 Emergency department patient visit Dr. Tequila Renee Work Phone: [facility]-Emergency Department Start: 02-06-2023 End: 02-06-[address] Tequila Renee Work Phone: [facility] Start: 02-03-2023 Non-patient / Non-visit Dr. Tequila Renee Work Phone: [facility] Start: 02-03-2023 End: 02-03-[address] Tequila Renee Work Phone: [facility] Work Phone: Start: 02-03-2023 End: 02-03-[address] Tequila Renee Work Phone: [facility]-Cardiovascular Services Start: 02-02-2023 End: 02-02-2023 Admission to same day surgery center Dr. Tequila Renee Work Phone: [facility]-Surgical Day Care Start: 02-02-2023 End: 02-02-[address] Tequila Renee Work Phone: [facility] Work Phone: Start: 01-23-2023 End: 01-23-[address] Tequila Renee Work Phone: [facility] Start: 01-13-2023 End: 01-13-2023 Office outpatient visit 15 minutes Tequila Renee MD Work Phone: [facility] Comment on above: Dyspnea and respirat ory abnormalities (Primary Dx); Chronic cough; Gastroesophageal reflux disease without esophagitis; Class 3 severe obesity due to excess calories without serious comorbidity with body mass index (BMI) of 40.0 to 44.9 in adult ([facility]) Start: 12-10-2022 Non-patient / Non-visit Dr. Tequila Renee Work Phone: [facility] Start: 12-09-2022 End: 12-09-[address] Tequila Renee Work Phone: [facility] Work Phone: Start: 12-09-2022 End: 12-09-[address] Tequila Renee Work Phone: [facility]-Pulmonary Services/Neurology Start: 12-05-2022 End: 12-05-2022 Non-patient / Non-visit Dr. Tequila Renee Work Phone: [facility] Start: 12-05-2022 End: 12-05-[address] Tequila Renee Work Phone: [facility] Work Phone: Start: 12-05-2022 End: 12-05-[address] Tequila Renee Work Phone: [facility]-Pulmonary Services/Neurology Start: 12-04-2022 End: 12-04-[address] Tequila Renee Work Phone: [facility]-Radiology, [facility] Start: 12-01-2022 AUDIT Tequila Renee Work Phone: [facility] Work Phone: Start: 11-25-2022 Office outpatient visit 25 minutes Tequila Renee Work Phone: [facility] Work Phone: Start: 11-25-2022 ambulatory MD TEQUILA GARCIA [facility]:[id number] Start: 09-16-[address] Tequila Renee Work Phone: [facility]-Physical Therapy Start: 09-03-[address] Tequila Renee Work Phone: [facility]-Physical Therapy Start: 09-02-2022 End: 09-02-[address] Tequila Renee Work Phone: [facility] Work Phone: Start: 09-02-2022 End: 09-02-[address] Tequila Renee Work Phone: [facility] Start: 07-24-2022 End: 07-24-[address] Tequila Renee Work Phone: [facility] Start: 07-09-2022 AUDIT Tequila Renee Work Phone: [facility] 205 DO Work Phone: Start: 01-08-2022 Periodic preventive med est patient 40-64yrs Tequila Renee Work Phone: [facility] 205 DO Work Phone: Start: 01-08-2022 ambulatory MD TEQUILA GARCIA RENEE Facility:[id number] Start: 12-25-2021 AUDIT Tequila Renee Work Phone: [facility] 205 DO Work Phone: Start: 12-11-2017 End: 12-12-2017 Ambulatory Tequila Renee Facility:[facility] Start: 11-19-2017 End: 11-19-2017 Ambulatory Tequila Renee Facility:[facility] Start: 07-01-2017 End: 07-02-2017 Ambulatory Tequila Renee Facility:[facility] Procedures Date Procedure Procedure Detail Performing Clinician Start: 04-24-2025 X-ray of lumbosacral spine Dr. Tequila Renee MD Work Phone: Start: 03-30-2025 Follow-up visit Follow-up TEQUILA RENEE Start: 03-28-[address] Tequila Renee MD Work Phone: Start: 03-24-2025 Urnls dip stick/tabl et reagent auto microscopy Dr. Tequila Renee MD Work Phone: Start: 03-24-2025 Computed tomography of abdomen and pelvis with intravenous contrast Dr. Tequila Renee MD Work Phone: Start: 03-24-[address] Tequila Renee MD Work Phone: Start: 03-24-[address] Tequila Renee MD Work Phone: Start: 02-08-[address] Tequila Renee [...] Start: 11-11-2024 Measurement of renal function Dr. Tequila Renee MD Work Phone: Comment [...] Activity Detail Author Start: 09-16-2033 Screening for malignant neoplasm of colon [facility] Start: 11-11-2027 Diabetes mellitus screening Diabetes Screening [facility] Start: 02-13-2026 End: 02-13-2026 Patient encounter procedure 02/13/2026 8:00 AM EDT Office Visit [address] [id number] Tequila Renee MD [address] [place] [address] [facility] Start: 02-04-2026 Yearly Adult Physical Yearly Adult Physical [facility] Start: 06-16-2025 ambulatory Ambulatory Facility:[facility] Start: 03-28-2025 Patient discharge [facility] Start: 03-25-2025 Application of intermittent pneumatic compression device [facility] Start: 03-25-2025 Following clinical pathway protocol [facility] Start: 03-25-2025 Cardiac monitoring [facility] Start: 03-25-2025 Catheterization of vein [facility] Start: 03-25-2025 Consultation [facility] Start: 03-25-2025 Notification of physician [facility] Start: 03-25-2025 Referral to gastroenterology service [facility] Start: 03-25-2025 Vital signs measurements [facility] Start: 03-25-2025 [facility] Start: 03-25-2025 Thyroid stimulating hormone measurement [facility] Start: 03-25-2025 Admission procedure [facility] Start: 03-24-2025 End: 03-24-2025 Hospital admission, emergency, from emergency room, medical nature [facility] Start: 03-24-2025 Enteric precautions [facility] Start: 03-24-2025 [facility] Start: 03-24-2025 Measurement of occult blood in stool specimen using immunoassay [facility] Start: 03-24-2025 Bacteria identified in Blood by Culture Blood Culture [facility] Start: 03-24-2025 Blood culture Blood Culture [facility] Start: 02-08-2025 Bacteria identified in Urine by Culture Urine Culture [facility] Start: 02-08-2025 [facility] Start: 02-03-2025 End: 04-05-2026 DBT Breast - bilateral BI mammo bilateral screening tomosynthesis Imaging Routine Screening breast examination Expected: 02/03/2025, Expires: 04/05/2026 [facility] Service Area Work Phone: Comment on above: Expected: 02/03/2025, Expires: Start: 01-31-2025 Patient referral [facility] Work Phone: Start: 01-09-2025 Njx anes&/strd w/img tfrml edrl lmbr/sac 1 lvl NJX AA&/STRD TFRM EPI L/S 1 [facility] Start: 01-09-2025 Injection of spinal epidural space [facility] Start: 01-09-2025 X-ray of lumbar spine, two or three views Lumbar Spine 2 or 3 Views [facility] Start: 01-09-2025 Patient discharge [facility] Start: 01-20-2025 Patient discharge [facility] Start: 06-05-2024 COVID-19 Vaccine ( season) COVID-19 Vaccine () [facility] Start: 03-19-2024 Screening for malignant neoplasm of breast Mammogram [facility] Start: 12-07-2023 Injection of spinal epidural space [facility] Start: 12-07-2023 Injection using fluoroscopic guidance [facility] Start: 12-07-2023 Patient discharge [facility] Start: 09-16-2023 Colonoscopy flx dx w/collj spec when pfrmd DIAGNOSTIC COLONOSCOPY [facility] Start: 09-16-2023 Egd transoral biopsy single/multiple EGD BIOPSY SINGLE/MULTIPLE [facility] Start: 09-16-2023 Patient discharge [facility] Start: 02-02-2023 Njx dx/ther sbst intrlmnr lmbr/sac w/img gdn NJX INTERLAMINAR LMBR/SAC [facility] Start: 02-02-2023 Injection using fluoroscopic guidance [facility] Start: 02-02-2023 Vitamin D, 1,25-dihydroxy measurement [facility] Start: 02-02-2023 Patient discharge [facility] Start: 01-23-2023 Patient referral [facility] Work Phone: Start: 01-13-2023 End: 01-14-2024 Heart Transthoracic Transthoracic Echo (TTE) Complete Echocardiography Routine Dyspnea and respiratory abnormalities Expected: 01/13/2023, Expires: 01/14/2024 [facility] Service Area Work Phone: Comment on above: Expected: 01/13/2023, Expires: Start: 01-08-2023 FUV, Provider: Tequila Renee, Status: Pen, Time: 9:00 AM FUV, Provider: Tequila Renee, Status: Pen, Time: 9:00 AM [facility] 205 DO Work Phone: Start: 2022 Pneumococcal vaccination Pneumococcal Vaccine (1 of 1 - PCV) [facility] Start: 2022 Zoster Vaccines (1 of 2) Zoster Vaccines (1 of 2) [facility] Start: 01-07-2022 EPV, Provider: Tequila Renee, Status: Pen, Time: 8:40 AM EPV, Provider: Tequila Renee, Status: Pen, Time: 8:40 AM [facility] 205 DO Work Phone: Start: 10-11-2021 COVID-19 Vaccine (4 - Booster for Moderna series) COVID-19 Vaccine (4 - Booster for Moderna series) [facility] Start: 2012 Screening for malignant neoplasm of breast Mammogram [facility] Start: 1994 DTaP/Tdap/Td Vaccines (1 - Tdap) DTaP/Tdap/Td Vaccines (1 - Tdap) [facility] Start: 1993 Screening for malignant neoplasm of cervix [facility] Start: 1991 Hepatitis B Vaccines (1 of 3 - 19+ 3-dose series) Hepatitis B Vaccines (1 of 3 - 19+ 3-dose series) [facility] Start: 1990 Hepatitis C screening Hepatitis C Screening [facility] Start: 1973 MMR Vaccines (1 of 1 - Standard series) MMR Vaccines (1 of 1 - Standard series) [facility] Start: 1972 Hepatitis B Vaccines (1 of 3 - 3-dose series) Hepatitis B Vaccines (1 of 3 - 3-dose series) [facility] Start: 1972 HIV screening HIV Screening [facility] Start: 1972 Lipid panel Lipid Panel [facility] Start: 1972 Screening for malignant neoplasm of colon [facility] Start: 1972 Yearly Adult Physical Yearly Adult Physical [facility] CBC W Auto Different ial panel - Blood [facility] Clostridioides diffi cile DNA [Presence] in Unspecified specimen by JUAN LUIS with probe detection [facility] Lactic acid measurement [facility] Nucleic acid assay [facility] Patient Education [facility] Work Phone: Patient referral [facility] Work Phone: Polysomnography [facility] Urine culture [facility] Immunizations Immunization Date Immunization Notes Care Provider Rosalie miller 08-29-2024 influenza, seasonal, injectable, preservative free Dr. Tequila Renee MD Work Phone: [facility] 11-10-2023 influenza, injectabl e, quadrivalent, preservative free Dr. Tequila Renee Work Phone: [facility] 07-04-2022 influenza, injectabl e, quadrivalent, preservative free Dr. Tequila Renee Work Phone: [facility] 07-04-2022 influenza, seasonal, injectable Dr. Tequila Renee Work Phone: [facility] 08-16-2021 Moderna COVID-19 Vaccine 100 MCG/0.5ML Intramuscular Suspension Tequila Renee Work Phone: [facility] 07-30-2021 influenza, injectabl e, quadrivalent, preservative free Dr. Tequila Renee Work Phone: [facility] 07-30-2021 influenza, seasonal, injectable Dr. Tequila Renee Work Phone: [facility] 07-30-2021 influenza, seasonal, injectable, preservative free Tequila Renee Work Phone: [facility] 10-31-2020 Moderna COVID-19 Vaccine 100 MCG/0.5ML Intramuscular Suspension Tequila Renee Work Phone: [facility] 10-03-2020 Moderna COVID-19 Vaccine 100 MCG/0.5ML Intramuscular Suspension Tequila Renee Work Phone: [facility] 08-09-2020 influenza, injectabl e, quadrivalent, preservative free Dr. Tequila Renee Work Phone: [facility] 08-09-2020 influenza, seasonal, injectable Dr. Tequila Renee Work Phone: [facility] 06-30-2019 influenza, injectabl e, quadrivalent, preservative free Dr. Tequila Renee Work Phone: [facility] 06-30-2019 influenza, seasonal, injectable Dr. Tequila Renee Work Phone: [facility] 08-11-2018 influenza, injectabl e, quadrivalent, preservative free Dr. Tequila Renee Work Phone: [facility] 08-11-2018 influenza, seasonal, injectable Dr. Tequila Renee Work Phone: [facility] 09-02-2017 influenza, injectabl e, quadrivalent, preservative free Dr. Tequila Renee Work Phone: [facility] 09-02-2017 influenza, seasonal, injectable Dr. Tequila Renee Work Phone: [facility] 07-03-2016 influenza, injectabl e, quadrivalent, preservative free Dr. Tequila Renee Work Phone: [facility] 07-03-2016 influenza, seasonal, injectable Dr. Tequila Renee Work Phone: [facility] 08-01-2015 influenza, injectabl e, quadrivalent, preservative free Dr. Tequila Renee Work Phone: [facility] 08-01-2015 influenza, seasonal, injectable Dr. Tequila Renee Work Phone: [facility] 07-05-2014 influenza, injectabl e, quadrivalent, preservative free Dr. Tequila Renee Work Phone: [facility] 07-05-2014 influenza, seasonal, injectable Dr. Tequila Renee Work Phone: [facility] Payers Date Payer Category Payer Self-pay [id number] 2022 [facility] Care (Private) [facility] [id number] 2022 Unknown [id number] 2017 Unknown 2015 Unknown [id number] 1972 Unknown [id number] 2.16.840.1.896849.3.579.2. 356 1972 Unknown [id number] 2.16.840.1.385249.3.579.2. 356 1972 Unknown [id number] 2.16.840.1.004233.3.579.2. 1244 1972 Unknown [id number] 2.16.840.1.891735.3.579.2. 1244 Unknown [id number] 2.16.840.1.572766.3.579.2. 462 Unknown [id number] 2.16.840.1.007112.3.579.2. 462 Unknown [id number] 2.16.840.1.503366.3.579.2. 462 Unknown [id number] 2.16.840.1.761662.3.579.2. 462 Unknown [id number] 2.16.840.1.277849.3.579.2. 462 Unknown [id number] 2.16.840.1.167787.3.579.2. 462 Unknown [id number] 2.16.840.1.619642.3.579.2. 462 Unknown [id number] 2.16.840.1.019035.3.579.2. 462 Unknown [id number] 2.16.840.1.203425.3.579.2. 462 Unknown [id number] 2.16.840.1.463328.3.579.2. 462 Unknown [id number] 2.16.840.1.766042.3.579.2. 462 Unknown [id number] 2.16.840.1.392554.3.579.2. 462 Unknown [id number] 2.16.840.1.450384.3.579.2. 462 Unknown [id number] 2.16.840.1.332515.3.579.2. 462 Unknown [id number] 2.16.840.1.571566.3.579.2. 462 Unknown [id number] 2.16.840.1.026009.3.579.2. 462 Unknown [id number] 2.16.840.1.498304.3.579.2. 462 Unknown [id number] 2.16.840.1.268800.3.579.2. 462 Unknown [id number] 2.16.840.1.685116.3.579.2. 462 Unknown [id number] 2.16.840.1.257059.3.579.2. 462 Unknown [id number] 2.16.840.1.264606.3.579.2. 462 Unknown [id number] 2.16.840.1.819745.3.579.2. 462 Unknown [id number] 2.16.840.1.754247.3.579.2. 462 Unknown [id number] 2.16.840.1.112629.3.579.2. 462 Unknown [id number] 2.16.840.1.524425.3.579.2. 462 Social History Date Type Detail Facility Assertion Unknown if ever smoked [facility] Work Phone: Start: 01-13-2023 End: 02-07-2025 Caffeine use Caffeine use [facility] 205 DO Work Phone: Start: 09-02-2022 End: 11-16-2023 Tobacco smoking status NHIS Unknown if ever smoked [facility] Start: 10-31-2020 Non-smoker [facility] Start: 1970 Sex Assigned At Female W [facility] Start: 01-13-2023 End: 04-21-2025 Tobacco smoking status NHIS Never smoked tobacco [facility] Start: 01-13-2023 Tobacco use and exposure Smokeless tobacco non-user [facility] Work Phone: Start: 01-13-2023 End: 03-30-2025 Alcohol intake Lifetime non-drinker (finding) [facility] Work Phone: Start: 01-13-2023 End: 02-07-2025 Tobacco use panel [facility] Work Phone: Start: 1970 Sex Assigned At Not on file [facility] Work Phone: Start: 01-03-2023 End: 02-03-2025 Exposure to SARS-CoV-2 (event) Not sure [facility] Start: 01-09-2025 End: 01-11-2025 Sex Female (finding) [facility] NEGATED: Highlighted row [facility] Medical Equipment Procedure Code Equipment Code [...] /State Functional Status Date Assessment Result Facility 03-28-2025 Functional status Ambulates;Up a d tong;Bathroom Privilege [facility] Work Phone: NEGATED: Highlighted row Functional performance Functional status health issues are not documented Disease [facility] Work Phone: Mental Status Date Assessment Result Facility 03-28-2025 Cognitive function Voice/Name [facility] Work Phone: 01-09-2025 Cognitive function Voice/Name [facility] Work Phone: 10-24-2024 Cognitive function Voice/Name [facility] Work Phone: 12-07-2023 Cognitive function Voice/Name [facility] Work Phone: 09-16-2023 Cognitive function Voice/Name [facility] Work Phone: 02-02-2023 Cognitive function Voice/Name [facility] Work Phone: NEGATED: Highlighted row Cognitive function [Interpretation] Cognitive status health issues are not documented Disease [facility] Work Phone: Clinical Notes 12-10-2022 to 04-25-2025 Rosalie Rey LPN - 03/30/2025 10:40 AM DELFINOTTequila Renee MD - 03/30/2025 10:40 AM EDT Note Date & Type Note Facility 04-25-2025 Radiology Diagnostic study note [facility] Imaging Services [address] [place] [address] L/S Spine Min 4 Views MR#: [id number] Acct: [id number] Name: BRISSA STEELE Rep #: [id number] : 1970 F 54 From: Rubina Young MD PCP: Dr. Tequila Renee MD Status: REG CLI Study:L/S Spine Min 4 Views Date of Exam: 04/24/25 Exam# [id number] Ordering Dr: Chintan Bueno MD PROCEDURE: L/S SPINE MIN 4 VIEWS 04/24/2025 REASON FOR EXAM: BACK PAIN TECHNIQUE: L/S SPINE MIN 4 VIEWS COMPARISON: 01/09/2025 FINDINGS: Mild scoliosis. Facet arthritis L3 through S1. Relatively preserved disc spaces. No abnormal motion with flexion/extension. No acute bone or soft tissue pathology. RAD/L/S Spine Min 4 Views IMPRESSION: Lumbar spine scoliosis and degeneration. Reading Location: [place] [address] CC: Dr. Ottoniel Bueno MD; Dr. 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 Subjective Brissa Steele is a 54 y.o. female who presents for Follow-up. SALVADOR Tyson is here for followup hospital stay at [facility] for lower GI bleed. There was originally some concern for sepsis but ultimately felt to be ischemic colitis. On flagyl and cipro course currently , fairly nauseous and doesn't feel like eating much. No further bleeding. Will see GI in [place] for colonoscopy in estimate six weeks. Hemoglobin in the 10's s, no transfusion was necessary. Review of Systems All other systems reviewed and are negative. . Allergies[1] Medications Ordered Prior to Encounter[2] Problem List[3] Objective Visit Vitals BP 134/80 (BP Location: Left arm, Patient Position: Sitting) Pulse 84 Physical Exam Vitals and nursing note reviewed. [...] Skin: General: Skin is warm and dry. Coloration: Skin is not pale. Neurological: General: No focal deficit present. Mental Status: She is alert and oriented to person, place, and time. Psychiatric: Mood and Affect: Mood normal. Behavior: Behavior normal. Assessment/Plan Problem List Items Addressed This Visit None Visit Diagnoses Nausea - Primary Relevant Medications ondansetron ODT (Zofran-ODT) 8 mg disintegrating tablet Ischemic colitis (Multi) Zofran for nausea. Complete antibiotics, follow up with GI. Call concerns. Tequila Renee MD [1] Allergies Allergen Reactions Morphine Unknown [2] Current Outpatient Medications on File Prior to Visit Medication Sig Dispense Refill ciprofloxacin (Cipro) 500 mg tablet 1 tablet (500 mg). cyclobenzaprine (Flexeril) 10 mg tablet dicyclomine (Bentyl) 10 mg capsule 1 capsule (10 mg). lansoprazole (Prevacid) [address] capsule TAKE 2 CAPSULES BY MOUTH ONCE DAILY 180 capsule 1 Menostar 14 mcg/24 hr metroNIDAZOLE (Flagyl) 500 mg tablet 1 tablet (500 mg). oxyCODONE-acetaminophen (Percocet) 5-325 mg tablet pregabalin (Lyrica) 100 mg capsule Take 1 capsule (100 mg) by mouth 3 times a day. [DISCONTINUED] LORazepam (Ativan) 0.5 mg tablet Take 1 tablet (0.5 mg) by mouth 3 times a day as needed (May cause sedation). 30 tablet 0 No current facility-administered medications on file prior to visit. [3] Patient Active Problem List Diagnosis Depression GERD (gastroesophageal reflux disease) RSD (reflex sympathetic dystrophy) History of malignant neoplasm of parotid gland Class 3 severe obesity due to excess calories with body mass index (BMI) of 40.0 to 44.9 in adult documented in this encounter [facility] Work Phone: 03-28-2025 Discharge summary Note Date/Time March 28, 2025 2:18pm [facility] Medical Records Department [address] [place] [address] Discharge Summary 03/28/25 1404 MR#: [id number] Acct: [id number] Name: BRISSA STEELE Rep #:[id number] : 1970 54 From: Bry Dominguez DO PCP: Dr. Tequila Renee MD Status:ADM IN Location: [place] [address] Providers Date of Admission: 03/25/25 Primary Care Physician: Dr. Tequila Renee MD Consultations 03/25/25 00:58 Consult: Gastroenterology Routine Consulting Provider: [facility] Reason for Consult: Colitis, LGIB with BRBPR, N/V and suspected Sepsis. 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 EMERGENT Consult: No MD Notified: Yes Date Notified: 03/25/25 Time Notified: 02:31 Method of Notification: Answering Service Reason For Visit: COLITIS, LGIB WITH BRBPR, N/V AND POSSIBLE SEPSIS Diagnosis Discharge Diagnosis (1) Colitis: Status: Acute Code(s): K52.9 - Noninfective gastroenteritis and colitis, unspecified Plan: most likley 2/2 ischemic colitis continue abx w cipro and metronidazole (2) LGI bleed: Status: Acute Code(s): K92.2 - Gastrointestinal hemorrhage, unspecified Plan: There is very resolved. If due to ischemic colitis I do anticipated overall improving. no plans for endoscopy (3) ABLA (acute blood loss anemia): Status: Acute Code(s): D62 - Acute posthemorrhagic anemia Plan: 2/2 GIB. Hg 14.8 down to 10.9 monitor no need for transfusion Plan VTE prophylaxis: SCDs. Disposition: DC home. Continue ABX. Bentyl PRN. PRN oxycodone. Medications at Discharge Home Medications naproxen 250 mg tablet 250 - 500 mg (1 - 2 x 250 mg) PO Q8H PRN PRN MILD PAIN #30 tabs 11/06/20 multivitamin 1 cap PO DAILY suppleme 01/30/23 estradiol 14 mcg/24 hr weekly transdermal patch 1 patch transdermal QWEEK #4 ea 03/15/24 lansoprazole 30 mg capsule,delayed release 30 mg PO DAILY #90 caps 11/11/24 naltrexone 8 mg-bupropion 90 mg tablet,extended release (Contrave) 2 tab PO BID 12 weeks #336 tabs 11/11/24 pregabalin 200 mg capsule (Lyrica) 150 mg PO BID pain 11/11/24 acetaminophen 325 mg tablet 1,000 mg (3.0769 x 325 mg) PO Q8H PRN PRN Pain 1-10 Or Fever #0 tabs 03/28/25 ciprofloxacin HCl 500 mg tablet (Cipro) 500 mg PO BID #14 tabs 03/28/25 dicyclomine 10 mg capsule 10 mg PO Q6 PRN abdominal cramping #30 caps 03/28/25 metronidazole 500 mg tablet 500 mg PO Q8H #21 tabs 03/28/25 Hospital Course Operations None Procedures None Summary of Care Provided Minutes Spent on Discharge: 35 Hospital Course: Is a 52-year-old female presents with acute abdominal pain and hematochezia. CAT scan showed colitis on the left with no obstruction. Patient was seen by gastroenterology and felt this was ischemic colitis. Recommended just antibiotics and bowel rest. Also recommending follow-up colonoscopy in 4 to 6 weeks to see about resolution of the colitis. Patient slowly recovered. We didadvance her diet and that she did not tolerate that initially but the following day, today, she tolerated that well. Patient will be discharged home in stable condition. Pain is much better. Continue with acetaminophen, Bentyl for pain control. Patient overall doing better.. Patient already on Contrave was has naltrexone and its, so we will hold off on opiates as it would inhibit their effect. Weight / BMI Weight Weight: 98.7 kg Body Mass Index (BMI) 37.3 ABG / Lab / Microbiology Data 03/28/25 11:13 03/28/25 11:13 Laboratory: Laboratory Results - last 24 hr 03/28/25 11:13: WBC 6.9, RBC 3.60 L, Hgb 10.9 L, Hct 32.6 L, MCV 90.6, MCH 30.3,MCHC 33.4, RDW Std Deviation 44.0 H, RDW Coeff of Valente 13.2, Plt Count 196, MPV 10.6, Immature Gran % (Auto) 0.300, Neut % (Auto) 70.8 H, Lymph % (Auto) 18.0 L,[place] % (Auto) 6.8, Eos % (Auto) 3.5, Baso % (Auto) 0.6, Absolute Neuts (auto) 4.9, Absolute Lymphs (auto) 1.24, Nucleated RBC % 0, Sodium 143, Potassium 3.3, Chloride 110 H, Carbon Dioxide 25.0, Anion Gap 9, BUN 3 L, Creatinine 0.67 L, Estim Creat Clear Calc 112.11, Est GFR (MDRD) Non-Af 105, BUN/Creatinine Ratio 4.8 L, Glucose 117 H, Calcium 8.7 Microbiology: Microbiology 03/24/25 23:16 Blood Culture (Wb) - Anticubital Right Blood Culture - Preliminary No growth in 48 hours. 03/24/25 23:12 Blood Culture (Wb) - Anticubital Left Blood Culture - Preliminary No growth in 48 hours. D/C Instructions Discharge Diet: - ([place] diet. Advance as tolerated.) Return to work on: 04/03/25 DC O2, CPAP, BIPAP Needs Home O2 Discharge instructions: No Meaningful Use Info Meaningful Use Meaningful Use Diagnoses (Choose all that apply): None applicable Ischemic Stroke Statin Dosing Therapy Reference: STATIN DOSE THERAPY REFERENCE: * Patients > 75 years receive moderate or high dose statin therapy. * Patients 75 years or YOUNGER should receive HIGH intensity statin dose unless contraindicated. You will be required to document reason for non-treatment if statin daily dose does not meet guidelines. HIGH DOSE STATIN THERAPY DAILY Atorvastatin > than or = to 40 mg Rosuvastatin > than or = to 20 mg Amlodipine + Atorvastatin > than or = to 2.5/40 mg Ezetimibe + Simvastatin 10/80 mg Simvastatin 80mg Discharge Plan Admission Admit Date/Time: 03/25/25 00:30 Primary Reason for Your Visit: Colitis. Attending Provider: Bry Dominguez Primary Care Provider: Tequila Renee Consulting Providers: Jason Watters; Chad Rosenthal; Lawrence Thomas; Marcus Willard; Prakash Handley; Jason Ferrell; Dano Rojas; Ravindra Bernal; Crystal Sierra; Rj Hurst; Bimal Julian; James Vera; Daya Fofana; Dalton Mendoza; Brooke White; Andrea Shelton; Chang Rahman; Magdiel Naidu; Corbin Palomares; Chencho Pereira; Joey Teran; Adolfo Noe; Robert Kirkpatrick; Pasha Salazar Instructions Patient Instructions: ED Understanding Colitis Additional Instructions / Restrictions: You have what appears to be acute ischemic colitis. Obviously it got better with improvement of pain as well as hematochezia. Dr. Manriquez of gastroenterology recommended continuing with antibiotics. And he would like to see you in 4 to 6 weeks to have a colonoscopy to see about resolution of the colitis. If you have worsening abdominal pain or recurrent bloody stool, contact physician or return to the emergency room. Discharge Orders/Prescriptions Prescriptions: New acetaminophen 325 mg Tablet 1,000 mg PO Q8H PRN PRN (Reason: Pain 1-10 Or Fever) Qty: 0 0RF dicyclomine 10 mg Capsule 10 mg PO Q6 PRN (Reason: abdominal cramping) Qty: 30 0RF ciprofloxacin HCl [Cipro] 500 mg tablet 500 mg PO BID Qty: 14 0RF metronidazole 500 mg tablet 500 mg PO Q8H Qty: 21 0RF Continued pregabalin [Lyrica] 200 mg capsule 150 mg PO BID estradiol 14 mcg/24 hr patch weekly 1 patch transdermal QWEEK Qty: 4 12RF lansoprazole 30 mg capsule,delayed release(DR/EC) 30 mg PO DAILY Qty: 90 3RF Contrave 8-90 mg tablet extended release 2 tab PO BID 84 Days Qty: 336 3RF naproxen 250 MG tablet 250 - 500 mg PO Q8H PRN PRN (Reason: MILD PAIN) Qty: 30 1RF multivitamin Capsule 1 cap PO DAILY Patient Comments: Patient states does not take consistently Referrals / Follow Up: Tequila Renee MD [Primary Care Provider] - 3-5 Days Chele Manriquez DO [Med Staff - Active Staff] - Within 1 Month Disposition Disposition (needs filled in before D/C Order can be placed): Home, Self Care Charges/Coding Visit Charges Inpatient E&M: 69598 Disch Hosp >30min 03/28/25 1418 <Electronically signed by Bry Dominguez DO> Cosigner Signature (if applicable): CC: Dr. Bry Dominguez DO; Dr. Tequila Renee MD~ Signed [facility] Work Phone: 1(730) 534-869406-24-2025 Progress note Author Bry Dominguez [facility] Note Date/Time March 28, 2025 2:04 pm [facility] Medical Records Department [address] [place] [address] Progress Note - Hospitalist 03/28/25 1400 MR#: [id number] Acct: [id number] Name: BRISSA STEELE Rep #:[id number] : 1970 54 From: Bry Dominguez DO PCP: Dr. Tequila Renee MD Status:ADM IN Location: [place] [address] Reason for Visit Reason for Visit: Diagnoses Sepsis, unspecified organism (03/25/25) Acute posthemorrhagic anemia (03/25/25) Elevated white blood cell count, unspecified (03/25/25) Obesity, unspecified (03/25/25) Hypotension, unspecified (03/25/25) Noninfective gastroenteritis and colitis, unspecified (03/25/25) Gastrointestinal hemorrhage, unspecified (03/25/25) Bilious vomiting (03/25/25) Fever, unspecified (03/25/25) Subjective Subjective Feeling better. No further hematochezia. Objective Data Objective Data Vital Signs: Vital Signs Temp Pulse Resp BP Pulse Ox O2 Del Method 37.1 C 79 12 98/61 91 Room Air 03/28/25 09:44 03/28/25 09:44 03/28/25 09:44 03/28/25 09:44 03/28/25 09:44 03/28/25 10:15 Oxygen Delivery Method Room Air Weight: 98.7 kg Body Mass Index (BMI) 37.3 Intake & Output: Intake and Output for Last 24 Hours 03/26/25 03/27/25 03/28/25 23:59 23:59 23:59 Intake Total 2099 / 20997.75 / 2086.75 725 / 725 Balance 2099.75 / 2086.75 725 / 725 Lab / Micro Data 03/28/25 11:13 03/28/25 11:13 Labs: Laboratory Results - last 24 hr 03/28/25 11:13: WBC 6.9, RBC 3.60 L, Hgb 10.9 L, Hct 32.6 L, MCV 90.6, MCH 30.3,MCHC 33.4, RDW Std Deviation 44.0 H, RDW Coeff of Valente 13.2, Plt Count 196, MPV 10.6, Immature Gran % (Auto) 0.300, Neut % (Auto) 70.8 H, Lymph % (Auto) 18.0 L,[place] % (Auto) 6.8, Eos % (Auto) 3.5, Baso % (Auto) 0.6, Absolute Neuts (auto) 4.9, Absolute Lymphs (auto) 1.24, Nucleated RBC % 0, Sodium 143, Potassium 3.3, Chloride 110 H, Carbon Dioxide 25.0, Anion Gap 9, BUN 3 L, Creatinine 0.67 L, Estim Creat Clear Calc 112.11, Est GFR (MDRD) Non-Af 105, BUN/Creatinine Ratio 4.8 L, Glucose 117 H, Calcium 8.7 Micro: Microbiology 03/24/25 23:16 Blood Culture (Wb) - Anticubital Right Blood Culture - Preliminary No growth in 48 hours. 03/24/25 23:12 Blood Culture (Wb) - Anticubital Left Blood Culture - Preliminary No growth in 48 hours. Physical Exam Const alert and no apparent distress Resp normal respiratory effort and no retractions GI non-distended GI Narrative: minimal LUQ tenderness. Assessment & Plan Assessment/Plan (1) Colitis: PLAN: infectious v inflammatory v ischemia GI suspects ischemic colitis pt denies abx use in past 3 month (present hospitalization excluded) continue abx w cipro and metronidazole (2) LGI bleed: PLAN: There is very resolved. If due to ischemic colitis I do anticipated overall improving. no plans for endoscopy (3) ABLA (acute blood loss anemia): PLAN: 2/2 GIB. Hg 14.8 down to 10.9 monitor no need for transfusion PLAN: Plan VTE prophylaxis: SCDs. Disposition: DC home. Continue ABX. Bentyl PRN. PRN oxycodone. 03/28/25 1404 <Electronically signed by Bry Dominguez DO> Cosigner Signature (if applicable): CC: ~ Signed [facility] Work Phone: 1(101) 485-366406-24-2025 Consult note [facility] Medical Records Department [address] [place] [address] Counseling Note - Pharmacy 03/28/25 7748 MR#: [id number] Acct: [id number] Name: BRISSA STEELE Rep #:[id number] : 1970 54 From: Gwen Mary PCP: Dr. Tequila Renee MD Status:ADM IN Location: [place] [address] Pharmacy [facility] Counseling Pharmacy Service has performed discharge medication reconciliation and counseling for this patient. 1. CIPROFLOXACIN 500MG PO BID X 7 DAYS 2. DICYCLOMINE 10MG PO Q6H PRN ABDOMINAL CRAMPING 3. METRONIDAZOLE 500MG PO Q8 X 7 DAYS The patient's discharge medication list was reviewed for discrepancies and discrepancies were resolved. The patient was counseled on the following discharge medications and changes in medications for homegoing were reviewed. The Reason for Use, instructions for use, and potential side effects were reviewed for all new medications. The patient's questions regarding all of their medications were answered. The patient was able to verbally demonstrate an understanding of their dischargemedications. Medications at Discharge Home Medications naproxen 250 mg tablet 250 - 500 mg (1 - 2 x 250 mg) PO Q8H PRN PRN MILD PAIN #30 tabs 11/06/20 multivitamin 1 cap PO DAILY suppleme 01/30/23 estradiol 14 mcg/24 hr weekly transdermal patch 1 patch transdermal QWEEK #4 ea 03/15/24 lansoprazole 30 mg capsule,delayed release 30 mg PO DAILY #90 caps 11/11/24 naltrexone 8 mg-bupropion 90 mg tablet,extended release (Contrave) 2 tab PO BID 12 weeks #336 tabs 11/11/24 pregabalin 200 mg capsule (Lyrica) 150 mg PO BID pain 11/11/24 acetaminophen 325 mg tablet 1,000 mg (3.0769 x 325 mg) PO Q8H PRN PRN Pain 1-10 Or Fever #0 tabs 03/28/25 ciprofloxacin HCl 500 mg tablet (Cipro) 500 mg PO BID #14 tabs 03/28/25 dicyclomine 10 mg capsule 10 mg PO Q6 PRN abdominal cramping #30 caps 03/28/25 metronidazole 500 mg tablet 500 mg PO Q8H #21 tabs 03/28/25 03/28/25 1519 Date _ Gwen Mary Cosigner Signature (if applicable): Date CC: ~ Signed [facility]06-24-2025 Discharge summary [facility] Medical Records Department [address] [facility] [place] [address] Discharge Summary 03/28/25 1404 MR#: [id number] Acct: [id number] Name: BRISSA STEELE Rep #:[id number] : 1970 54 From: Bry Dominguez DO PCP: Dr. Tequila Renee MD Status:ADM IN Location: [place] [address] Providers Date of Admission: 03/25/25 Primary Care Physician: Dr. Tequila Renee MD Consultations 03/25/25 00:58 Consult: Gastroenterology Routine Consulting Provider: [facility] Reason for Consult: Colitis, LGIB with BRBPR, N/V and suspected Sepsis. 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 EMERGENT Consult: No MD Notified: Yes Date Notified: 03/25/25 Time Notified: 02:31 Method of Notification: Answering Service Reason For Visit: COLITIS, LGIB WITH BRBPR, N/V AND POSSIBLE SEPSIS Diagnosis Discharge Diagnosis (1) Colitis: Status: Acute Code(s): K52.9 - Noninfective gastroenteritis and colitis, unspecified Plan: most likley 2/2 ischemic colitis continue abx w cipro and metronidazole (2) LGI bleed: Status: Acute Code(s): K92.2 - Gastrointestinal hemorrhage, unspecified Plan: There is very resolved. If due to ischemic colitis I do anticipated overall improving. no plans for endoscopy (3) ABLA (acute blood loss anemia): Status: Acute Code(s): D62 - Acute posthemorrhagic anemia Plan: 2/2 GIB. Hg 14.8 down to 10.9 monitor no need for transfusion Plan VTE prophylaxis: SCDs. Disposition: DC home. Continue ABX. Bentyl PRN. PRN oxycodone. Medications at Discharge Home Medications naproxen 250 mg tablet 250 - 500 mg (1 - 2 x 250 mg) PO Q8H PRN PRN MILD PAIN #30 tabs 11/06/20 multivitamin 1 cap PO DAILY suppleme 01/30/23 estradiol 14 mcg/24 hr weekly transdermal patch 1 patch transdermal QWEEK #4 ea 03/15/24 lansoprazole 30 mg capsule,delayed release 30 mg PO DAILY #90 caps 11/11/24 naltrexone 8 mg-bupropion 90 mg tablet,extended release (Contrave) 2 tab PO BID 12 weeks #336 tabs 11/11/24 pregabalin 200 mg capsule (Lyrica) 150 mg PO BID pain 11/11/24 acetaminophen 325 mg tablet 1,000 mg (3.0769 x 325 mg) PO Q8H PRN PRN Pain 1-10 Or Fever #0 tabs 03/28/25 ciprofloxacin HCl 500 mg tablet (Cipro) 500 mg PO BID #14 tabs 03/28/25 dicyclomine 10 mg capsule 10 mg PO Q6 PRN abdominal cramping #30 caps 03/28/25 metronidazole 500 mg tablet 500 mg PO Q8H #21 tabs 03/28/25 Hospital Course Operations None Procedures None Summary of Care Provided Minutes Spent on Discharge: 35 Hospital Course: Is a 52-year-old female presents with acute abdominal pain and hematochezia. CAT scan showed colitis on the left with no obstruction. Patient was seen by gastroenterology and felt this was ischemic colitis. Recommended just antibiotics and bowel rest. Also recommending follow-up colonoscopy in 4 to6 weeks to see about resolution of the colitis. Patient slowly recovered. We didadvance her diet and that she did not tolerate that initially but the following day, today, she tolerated that well. Patient will be discharged home in stable condition. Pain is much better. Continue with acetaminophen,Bentyl for pain control. Patient overall doing better.. Patient already on Contrave was has naltrexone and its, so we will hold off on opiates as it would inhibit their effect. Weight / BMI Weight Weight: 98.7 kg Body Mass Index (BMI) 37.3 ABG / Lab / Microbiology Data 03/28/25 11:13 03/28/25 11:13 Laboratory: Laboratory Results - last 24 hr 03/28/25 11:13: WBC 6.9, RBC 3.60 L, Hgb 10.9 L, Hct 32.6 L, MCV 90.6, MCH 30.3,MCHC 33.4, RDW Std Deviation 44.0 H, RDW Coeff of Valente 13.2, Plt Count 196, MPV 10.6, Immature Gran % (Auto) 0.300, Neut% (Auto) 70.8 H, Lymph % (Auto) 18.0 L,[place] % (Auto) 6.8, Eos % (Auto) 3.5, Baso % (Auto) 0.6, Absolute Neuts (auto) 4.9, Absolute Lymphs (auto) 1.24, Nucleated RBC % 0, Sodium 143, Potassium 3.3, Chloride 110 H, Carbon Dioxide 25.0, Anion Gap 9, BUN 3 L, Creatinine 0.67 L, Estim Creat Clear Calc 112.11, Est GFR (MDRD) Non-Af 105, BUN/Creatinine Ratio 4.8 L, Glucose 117 H, Calcium 8.7 Microbiology: Microbiology 03/24/25 23:16 Blood Culture (Wb) - Anticubital Right Blood Culture - Preliminary No growth in 48 hours. 03/24/25 23:12 Blood Culture (Wb) - Anticubital Left Blood Culture - Preliminary No growth in 48 hours. D/C Instructions Discharge Diet: - ([place] diet. Advance as tolerated.) Return to work on: 04/03/25 DC O2, CPAP, BIPAP Needs Home O2 Discharge instructions: No Meaningful Use Info Meaningful Use Meaningful Use Diagnoses (Choose all that apply): None applicable Ischemic Stroke Statin Dosing Therapy Reference: STATIN DOSE THERAPY REFERENCE: * Patients > 75 years receive moderate or high dose statin therapy. * Patients 75 years or YOUNGER should receive HIGH intensity statin dose unless contraindicated. You will be required to document reason for non-treatment if statin daily dose does not meet guidelines. HIGH DOSE STATIN THERAPY DAILY Atorvastatin > than or = to 40 mg Rosuvastatin > than or = to 20 mg Amlodipine + Atorvastatin > than or = to 2.5/40 mg Ezetimibe + Simvastatin 10/80 mg Simvastatin 80mg Discharge Plan Admission Admit Date/Time: 03/25/25 00:30 Primary Reason for Your Visit: Colitis. Attending Provider: Bry Dominguez Primary Care Provider: Tequila Renee Consulting Providers: Jason Watters; Chad Rosenthal; Lawrence Thomas; Marcus Willard; Prakash Handley; Jason Ferrell; Dano Rojas; Ravindra Bernal; Crystal Sierra; Rj Hurst; Bimal Julian; James Vear; Daya Fofana; Dalton Mendoza; Brooke White; Andrea Shelton; Chang Rahman; Magdiel Naidu; Corbin Palomraes; Chencho Pereira; Joey Teran; Adolfo Noe; Robert Kirkpatrick; Pasha Salazar Instructions Patient Instructions: ED Understanding Colitis Additional Instructions / Restrictions: You have what appears to be acute ischemic colitis. Obviously it got better with improvement of pain as well as hematochezia. Dr. Manriquez of gastroenterology recommended continuing with antibiotics. And he would like to see you in 4 to 6 weeks to have a colonoscopy to see about resolution of the colitis. If you have worsening abdominal pain or recurrent bloody stool, contact physician or return tothe emergency room. Discharge Orders/Prescriptions Prescriptions: New acetaminophen 325 mg Tablet 1,000 mg PO Q8H PRN PRN (Reason: Pain 1-10 Or Fever) Qty: 0 0RF dicyclomine 10 mg Capsule 10 mg PO Q6 PRN (Reason: abdominal cramping) Qty: 30 0RF ciprofloxacin HCl [Cipro] 500 mg tablet 500 mg PO BID Qty: 14 0RF metronidazole 500 mg tablet 500 mg PO Q8H Qty: 21 0RF Continued pregabalin [Lyrica] 200 mg capsule 150 mg PO BID estradiol 14 mcg/24 hr patch weekly 1 patch transdermal QWEEK Qty: 4 12RF lansoprazole 30 mg capsule,delayed release(DR/EC) 30 mg PO DAILY Qty: 90 3RF Contrave 8-90 mg tablet extended release 2 tab PO BID 84 Days Qty: 336 3RF naproxen 250 MG tablet 250 - 500 mg PO Q8H PRN PRN (Reason: MILD PAIN) Qty: 30 1RF multivitamin Capsule 1 cap PO DAILY Patient Comments: Patient states does not take consistently Referrals / Follow Up: Tequila Renee MD [Primary Care Provider] - 3-5 Days Chele Manriquez DO [Med Staff - Active Staff] - Within 1 Month Disposition Disposition (needs filled in before D/C Order can be placed): Home, Self Care Charges/Coding Visit Charges Inpatient E&M: 72742 Disch Hosp >30min 03/28/25 1418 Cosigner Signature (if applicable): CC: Dr. Bry Dominguez DO; Dr. Tequila Renee MD~ Signed [facility]06-24-2025 [facility] Medical Records Department [address] [place] [address] Discharge Summary 03/28/25 1404 MR#: [id number] Acct: [id number] Name: BRISSA STEELE Rep #: [id number] : 1970 54 From: Bry Dominguez DO PCP: Dr. Tequila Renee MD Status:ADM IN Location: [id number] Providers Date of Admission: 03/25/25 Primary Care Physician: Dr. Tequila Renee MD Consultations 03/25/25 00:58 Consult: Gastroenterology Routine Consulting Provider: [facility] Reason for Consult: Colitis, LGIB with BRBPR, N/V and suspected Sepsis. 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 EMERGENT Consult: No MD Notified: Yes Date Notified: 03/25/25 Time Notified: 02:31 Method of Notification: Answering Service Reason For Visit: COLITIS, LGIB WITH BRBPR, N/V AND POSSIBLE SEPSIS Diagnosis Discharge Diagnosis (1) Colitis: Status: Acute Code(s): K52.9 - Noninfective gastroenteritis and colitis, unspecified Plan: most likley 2/2 ischemic colitis continue abx w cipro and metronidazole (2) LGI bleed: Status: Acute Code(s): K92.2 - Gastrointestinal hemorrhage, unspecified Plan: There is very resolved. If due to ischemic colitis I do anticipated overall improving. no plans for endoscopy (3) ABLA (acute blood loss anemia): Status: Acute Code(s): D62 - Acute posthemorrhagic anemia Plan: 2/2 GIB. Hg 14.8 down to 10.9 monitor no need for transfusion Plan VTE prophylaxis: SCDs. Disposition: DC home. Continue ABX. Bentyl PRN. PRN oxycodone. Medications at Discharge Home Medications naproxen 250 mg tablet 250 - 500 mg (1 - 2 x 250 mg) PO Q8H PRN PRN MILD PAIN #30 tabs 11/06/20 multivitamin 1 cap PO DAILY suppleme 01/30/23 estradiol 14 mcg/24 hr weekly transdermal patch 1 patch transdermal QWEEK #4 ea 03/15/24 lansoprazole 30 mg capsule,delayed release 30 mg PO DAILY #90 caps 11/11/24 naltrexone 8 mg-bupropion 90 mg tablet,extended release (Contrave) 2 tab PO BID 12 weeks #336 tabs 11/11/24 pregabalin 200 mg capsule (Lyrica) 150 mg PO BID pain 11/11/24 acetaminophen 325 mg tablet 1,000 mg (3.0769 x 325 mg) PO Q8H PRN PRN Pain 1-10 Or Fever #0 tabs 03/28/25 ciprofloxacin HCl 500 mg tablet (Cipro) 500 mg PO BID #14 tabs 03/28/25 dicyclomine 10 mg capsule 10 mg PO Q6 PRN abdominal cramping #30 caps 03/28/25 metronidazole 500 mg tablet 500 mg PO Q8H #21 tabs 03/28/25 Hospital Course Operations None Procedures None Summary of Care Provided Minutes Spent on Discharge: 35 Hospital Course: Is a 52-year-old female presents with acute abdominal pain and hematochezia. CAT scan showed colitis on the left with no obstruction. Patient was seen by gastroenterology and felt this was ischemic colitis. Recommended just antibiotics and bowel rest. Also recommending follow-up colonoscopy in 4 to 6 weeks to see about resolution of the colitis. Patient slowly recovered. We did advance her diet and that she did not tolerate that initially but the following day, today, she tolerated that well. Patient will be discharged home in stable condition. Pain is much better. Continue with acetaminophen, Bentyl for pain control. Patient overall doing better.. Patient already on Contrave was has naltrexone and its, so we will hold off on opiates as it would inhibit their effect. Weight / BMI Weight Weight: 98.7 kg Body Mass Index (BMI) 37.3 ABG / Lab / Microbiology Data 03/28/25 11:13 03/28/25 11:13 Laboratory: Laboratory Results - last 24 hr 03/28/25 11:13: WBC 6.9, RBC 3.60 L, Hgb 10.9 L, Hct 32.6 L, MCV 90.6, MCH 30.3, MCHC 33.4, RDW Std Deviation 44.0 H, RDW Coeff of Valente 13.2, Plt Count 196, MPV 10.6, Immature Gran % (Auto) 0.300, Neut % (Auto) 70.8 H, Lymph % (Auto) 18.0 L, [place] % (Auto) 6.8, Eos % (Auto) 3.5, Baso % (Auto) 0.6, Absolute Neuts (auto) 4.9, Absolute Lymphs (auto) 1.24, Nucleated RBC % 0, Sodium 143, Potassium 3.3, Chloride 110 H, Carbon Dioxide 25.0, Anion Gap 9, BUN 3 L, Creatinine 0.67 L, Estim Creat Clear Calc 112.11, Est GFR (MDRD) Non-Af 105, BUN/Creatinine Ratio 4.8 L, Glucose 117 H, Calcium 8.7 Microbiology: Microbiology 03/24/25 23:16 Blood Culture (Wb) - Anticubital Right Blood Culture - Preliminary No growth in 48 hours. 03/24/25 23:12 Blood Culture (Wb) - Anticubital Left Blood Culture - Preliminary No growth in 48 hours. D/C Instructions Discharge Diet: - ([place] diet. Advance as tolerated.) Return to work on: 04/03/25 DC O2, CPAP, BIPAP Needs Home O2 Discharge instructions: No Meaningful Use Info Meaningful Use (more content not included)...[facility] 03-28-2025 Progress note [facility] Medical Records Department [address] [place] [address] Progress Note - Hospitalist 03/28/25 1400 MR#: [id number] Acct: [id number] Name: BRISSA STEELE Rep #:[id number] : 1970 54 From: Bry Dominguez DO PCP: Dr. Tequila Renee MD Status:ADM IN Location: [place] [address] Reason for Visit Reason for Visit: Diagnoses Sepsis, unspecified organism (03/25/25) Acute posthemorrhagic anemia (03/25/25) Elevated white blood cell count, unspecified (03/25/25) Obesity, unspecified (03/25/25) Hypotension, unspecified (03/25/25) Noninfective gastroenteritis and colitis, unspecified (03/25/25) Gastrointestinal hemorrhage, unspecified (03/25/25) Bilious vomiting (03/25/25) Fever, unspecified (03/25/25) Subjective Subjective Feeling better. No further hematochezia. Objective Data Objective Data Vital Signs: Vital Signs Temp Pulse Resp BP Pulse Ox O2 Del Method 37.1 C 79 12 98/61 91 Room Air 03/28/25 09:44 03/28/25 09:44 03/28/25 09:44 03/28/25 09:44 03/28/25 09:44 03/28/25 10:15 Oxygen Delivery Method Room Air Weight: 98.7 kg Body Mass Index (BMI) 37.3 Intake & Output: Intake and Output for Last 24 Hours 03/26/25 03/27/25 03/28/25 23:59 23:59 23:59 Intake Total 2099.75 / 2086.75 725 / 725 Balance 2099.75 / 75 725 / 725 Lab / Micro Data 03/28/25 11:13 03/28/25 11:13 Labs: Laboratory Results - last 24 hr 03/28/25 11:13: WBC 6.9, RBC 3.60 L, Hgb 10.9 L, Hct 32.6 L, MCV 90.6, MCH 30.3,MCHC 33.4, RDW Std Deviation 44.0 H, RDW Coeff of Valente 13.2, Plt Count 196, MPV 10.6, Immature Gran % (Auto) 0.300, Neut% (Auto) 70.8 H, Lymph % (Auto) 18.0 L,[place] % (Auto) 6.8, Eos % (Auto) 3.5, Baso % (Auto) 0.6, Absolute Neuts (auto) 4.9, Absolute Lymphs (auto) 1.24, Nucleated RBC % 0, Sodium 143, Potassium 3.3, Chloride 110 H, Carbon Dioxide 25.0, Anion Gap 9, BUN 3 L, Creatinine 0.67 L, Estim Creat Clear Calc 112.11, Est GFR (MDRD) Non-Af 105, BUN/Creatinine Ratio 4.8 L, Glucose 117 H, Calcium 8.7 Micro: Microbiology 03/24/25 23:16 Blood Culture (Wb) - Anticubital Right Blood Culture - Preliminary No growth in 48 hours. 03/24/25 23:12 Blood Culture (Wb) - Anticubital Left Blood Culture - Preliminary No growth in 48 hours. Physical Exam Const alert and no apparent distress Resp normal respiratory effort and no retractions GI non-distended GI Narrative: minimal LUQ tenderness. Assessment & Plan Assessment/Plan (1) Colitis: PLAN: infectious v inflammatory v ischemia GI suspects ischemic colitis pt denies abx use in past 3 month (present hospitalization excluded) continue abx w cipro and metronidazole (2) LGI bleed: PLAN: There is very resolved. If due to ischemic colitis I do anticipated overall improving. no plans for endoscopy (3) ABLA (acute blood loss anemia): PLAN: 2/2 GIB. Hg 14.8 down to 10.9 monitor no need for transfusion PLAN: Plan VTE prophylaxis: SCDs. Disposition: DC home. Continue ABX. Bentyl PRN. PRN oxycodone. 03/28/25 1404 Cosigner Signature (if applicable): CC: ~ Signed [facility]06-23-2025 Progress note [facility] Note Date/Time March 27, 2025 4:20 pm [facility] Medical Records Department [address] [place] [address] Progress Note - Hospitalist 03/27/25 0751 MR#: [id number] Acct: [id number] Name: BRISSA STEELE Rep #:[id number] : 1970 54 From: Bry Dominguez DO PCP: Dr. Tequila Renee MD Status:ADM IN Location: [place] [address] Reason for Visit Reason for Visit: Diagnoses Sepsis, unspecified organism (03/25/25) Acute posthemorrhagic anemia (03/25/25) Elevated white blood cell count, unspecified (03/25/25) Obesity, unspecified (03/25/25) Hypotension, unspecified (03/25/25) Noninfective gastroenteritis and colitis, unspecified (03/25/25) Gastrointestinal hemorrhage, unspecified (03/25/25) Bilious vomiting (03/25/25) Fever, unspecified (03/25/25) Subjective Subjective Feeling better. Tolerating clear liquids. No further bleeding. Objective Data Objective Data Vital Signs: Vital Signs Temp Pulse Resp BP Pulse Ox O2 Del Method 37.1 C 75 14 101/50 L 92 Room Air 03/27/25 06:00 03/27/25 06:00 03/27/25 06:00 03/27/25 06:00 03/27/25 06:00 03/27/25 06:00 Oxygen Delivery Method Room Air Weight: 98.7 kg Body Mass Index (BMI) 37.3 Intake & Output: Intake and Output for Last 24 Hours 03/25/25 03/26/25 03/27/25 23:59 23:59 23:59 Intake Total 3796.67 / 3796.67 2099 467.75 / 467.75 Balance 3796.67 / 3796.67 2099 467.75 / 467.75 Lab / Micro Data 03/27/25 08:30 03/27/25 08:30 Physical Exam Const Constitutional Narrative: Up in bed. Nontoxic. Has a clear liquid tray in front of her. HEENT head/scalp atraumatic Resp normal respiratory effort and no retractions Cardio regular rate, regular rhythm and S1 normal heart sound GI GI Narrative: Still tenderness in left upper quadrant but diminished from previous exams. Normal bowel sounds. Neuro Coordination / Balance: [id number] test normal Assessment & Plan Assessment/Plan (1) Colitis: PLAN: infectious v inflammatory v ischemia GI suspects ischemic colitis pt denies abx use in past 3 month (present hospitalization excluded) continue abx w cipro and metronidazole (2) LGI bleed: PLAN: There is very resolved. If due to ischemic colitis I do anticipated overall improving. no plans for endoscopy (3) ABLA (acute blood loss anemia): PLAN: 2/2 GIB. Hg 14.8 down to 11 monitor no need for transfusion PLAN: Plan VTE prophylaxis: SCDs. Disposition: Will advance patient to a transitional diet if she tolerates at that then she can be discharged. Charges/Coding Visit Charges Inpatient E&M: 63001 Subs Hosp L2 03/27/25 1308 <Electronically signed by Bry Dominguez DO> Cosigner Signature (if applicable): CC: ~ Signed ADDENDUM by Dr. Bry Dominguez DO on 03/27/25 at 1620 Addendum [place] worse after the transitional diet. Will monitor the patient overnight. 03/27/25 1620<Electronically signed by Bry Dominguez DO> Cosigner Signature (if applicable): cc: ~* Signed [facility] Work Phone: 1(145) 425-390906-23-2025 Progress note [facility] Medical Records Department [address] [place] [address] Progress Note - Hospitalist 03/27/25 0751 MR#: [id number] Acct: [id number] Name: BRISSA STEELE Rep #:[id number] : 1970 54 From: Bry Dominguez DO PCP: Dr. Tequila Renee MD Status:ADM IN Location: [place] [address] 1 Reason for Visit Reason for Visit: Diagnoses Sepsis, unspecified organism (03/25/25) Acute posthemorrhagic anemia (03/25/25) Elevated white blood cell count, unspecified (03/25/25) Obesity, unspecified (03/25/25) Hypotension, unspecified (03/25/25) Noninfective gastroenteritis and colitis, unspecified (03/25/25) Gastrointestinal hemorrhage, unspecified (03/25/25) Bilious vomiting (03/25/25) Fever, unspecified (03/25/25) Subjective Subjective Feeling better. Tolerating clear liquids. No further bleeding. Objective Data Objective Data Vital Signs: Vital Signs Temp Pulse Resp BP Pulse Ox O2 Del Method 37.1 C 75 14 101/50 L 92 Room Air 03/27/25 06:00 03/27/25 06:00 03/27/25 06:00 03/27/25 06:00 03/27/25 06:00 03/27/25 06:00 Oxygen Delivery Method Room Air Weight: 98.7 kg Body Mass Index (BMI) 37.3 Intake & Output: Intake and Output for Last 24 Hours 03/25/25 03/26/25 03/27/25 23:59 23:59 23:59 Intake Total 3796.67 / 3796.67 2099 / 2099 467.75 / 467.75 Balance 3796.67 / 3796.67 2099 467.75 / 467.75 Lab / Micro Data 03/27/25 08:30 03/27/25 08:30 Physical Exam Const Constitutional Narrative: Up in bed. Nontoxic. Has a clear liquid tray in front of her. HEENT head/scalp atraumatic Resp normal respiratory effort and no retractions Cardio regular rate, regular rhythm and S1 normal heart sound GI GI Narrative: Still tenderness in left upper quadrant but diminished from previous exams. Normal bowel sounds. Neuro Coordination / Balance: [id number] test normal Assessment & Plan Assessment/Plan (1) Colitis: PLAN: infectious v inflammatory v ischemia GI suspects ischemic colitis pt denies abx use in past 3 month (present hospitalization excluded) continue abx w cipro and metronidazole (2) LGI bleed: PLAN: There is very resolved. If due to ischemic colitis I do anticipated overall improving. no plans for endoscopy (3) ABLA (acute blood loss anemia): PLAN: 2/2 GIB. Hg 14.8 down to 11 monitor no need for transfusion PLAN: Plan VTE prophylaxis: SCDs. Disposition: Will advance patient to a transitional diet if she tolerates at that then she can be discharged. Charges/Coding Visit Charges Inpatient E&M: 96916 Subs Hosp L2 03/27/25 1308 Cosigner Signature (if applicable): CC: ~ Signed ADDENDUM by Dr. Bry Dominguez DO on 03/27/25 at 1620 Addendum [place] worse after the transitional diet. Will monitor the patient overnight. 03/27/25 1620 Cosigner Signature (if applicable): cc: ~* Signed [facility]06-22-2025 Progress note Author Bry Dominguez [facility] Note Date/Time March 26, 2025 2:13 pm [facility] Medical Records Department [address] [place] [address] Progress Note - Hospitalist 03/26/25 0916 MR#: [id number] Acct: [id number] Name: BRISSA STEELE Rep #:[id number] : 1970 54 From: Bry Dominguez DO PCP: Dr. Tequila Renee MD Status:ADM IN Location: [place] [address] Reason for Visit Reason for Visit: Diagnoses Sepsis, unspecified organism (03/25/25) Acute posthemorrhagic anemia (03/25/25) Elevated white blood cell count, unspecified (03/25/25) Obesity, unspecified (03/25/25) Hypotension, unspecified (03/25/25) Noninfective gastroenteritis and colitis, unspecified (03/25/25) Gastrointestinal hemorrhage, unspecified (03/25/25) Bilious vomiting (03/25/25) Fever, unspecified (03/25/25) Subjective Subjective Feeling better. Still with left sided abdominal pain. Objective Data Objective Data Vital Signs: Vital Signs Temp Pulse Resp BP Pulse Ox O2 Del Method 36.6 C 79 14 108/64 92 Room Air 03/26/25 05:30 03/26/25 05:30 03/26/25 05:30 03/26/25 05:30 03/26/25 05:30 03/26/25 05:35 Oxygen Delivery Method Room Air Weight: 98.7 kg Body Mass Index (BMI) 37.3 Intake & Output: Intake and Output for Last 24 Hours 03/24/25 03/25/25 03/26/25 23:59 23:59 23:59 Intake Total 2300 / 2300 3796.67 / 3796.67 550 / 550 Balance 2300 / 2300 3796.67 / 3796.67 550 / 550 Lab / Micro Data 03/26/25 04:34 03/26/25 04:34 Labs: Laboratory Results - last 24 hr 03/25/25 01:35: WBC 14.2 H, RBC 3.90 L, Hgb 11.9 L, Hct 35.4 L, MCV 90.8, MCH 30.5, MCHC 33.6, RDW Std Deviation 44.0 H, RDW Coeff of Valente 13.3, Plt Count 181,MPV 12.0, Immature Gran % (Auto) 0.200, Neut % (Auto) 85.3 H, Lymph % (Auto) 8.6L, [place] % (Auto) 5.8, Eos % (Auto) 0.0, Baso % (Auto) 0.1, Absolute Neuts (auto)12.1 H, Absolute Lymphs (auto) 1.22, Nucleated RBC % 0, Sodium 142, Potassium 3.2 L, Chloride 112 H, Carbon Dioxide 18.3 L, Anion Gap 12, BUN 9, Creatinine 0.75, Estim Creat Clear Calc 100.15, Est GFR (MDRD) Non-Af 96, BUN/Creatinine Ratio 11.3, Glucose 124 H, Calcium 8.1 03/25/25 14:58: Hgb 11.7 L, Hct 34.9 L 03/26/25 04:34: WBC 11.2 H, RBC 3.57 L, Hgb 11.0 L, Hct 32.6 L, MCV 91.3, MCH 30.8, MCHC 33.7, RDW Std Deviation 45.5 H, RDW Coeff of Valente 13.5, Plt Count 160,MPV 11.0, Immature Gran % (Auto) 0.400, Neut % (Auto) 75.1 H, Lymph % (Auto) 17.2 L, [place] % (Auto) 6.0, Eos % (Auto) 0.9, Baso % (Auto) 0.4, Absolute Neuts (auto) 8.4 H, Absolute Lymphs (auto) 1.92, Nucleated RBC % 0, Sodium 140, Potassium 3.1 L, Chloride 109 H, Carbon Dioxide 21.1, Anion Gap 9, BUN 5, Creatinine 0.72, Estim Creat Clear Calc 104.32, Est GFR (MDRD) Non-Af 100, BUN/Creatinine Ratio 7.0 L, Glucose 106 H, Calcium 8.3 Physical Exam Const alert and no apparent distress HEENT head/scalp atraumatic and moist oral mucous membranes Resp normal respiratory effort, no retractions, no use of accessory muscles and clearto auscultation bilaterally Cardio regular rate, regular rhythm, S1 normal heart sound and S2 normal heart sound GI normal to inspection, nondistended, normoactive bowel sounds and soft to palpation GI Narrative: TTP on left side, no rebound. Extremity normal to inspection and full ROM Neuro Sensorium / Orientation: awake and alert Assessment & Plan Assessment/Plan (1) Colitis: PLAN: infectious v inflammatory v ischemia GI suspects ischemic colitis pt denies abx use in past 3 month (present hospitalization excluded) continue abx w cipro and metronidazole (2) LGI bleed: PLAN: 2/2 colitis no plans for endoscopy (3) ABLA (acute blood loss anemia): PLAN: 2/2 GIB. Hg 14.8 down to 11.9. monitor no need for transfusion PLAN: Plan VTE prophylaxis: SCDs. Charges/Coding Visit Charges Inpatient E&M: 42094 Subs Hosp L2 03/26/25 1413 <Electronically signed by Bry Dominguez DO> Cosigner Signature (if applicable): CC: ~ Signed [facility] Work Phone: 1(499) 470-316906-22-2025 Progress note [facility] Medical Records Department [address] [place] [address] Progress Note - Hospitalist 03/26/25 0916 MR#: [id number] Acct: [id number] Name: BRISSA STEELE Rep #:[id number] : 1970 54 From: Bry Dominguez DO PCP: Dr. Tequila Renee MD Status:ADM IN Location: [place] [address] Reason for Visit Reason for Visit: Diagnoses Sepsis, unspecified organism (03/25/25) Acute posthemorrhagic anemia (03/25/25) Elevated white blood cell count, unspecified (03/25/25) Obesity, unspecified (03/25/25) Hypotension, unspecified (03/25/25) Noninfective gastroenteritis and colitis, unspecified (03/25/25) Gastrointestinal hemorrhage, unspecified (03/25/25) Bilious vomiting (03/25/25) Fever, unspecified (03/25/25) Subjective Subjective Feeling better. Still with left sided abdominal pain. Objective Data Objective Data Vital Signs: Vital Signs Temp Pulse Resp BP Pulse Ox O2 Del Method 36.6 C 79 14 108/64 92 Room Air 03/26/25 05:30 03/26/25 05:30 03/26/25 05:30 03/26/25 05:30 03/26/25 05:30 03/26/25 05:35 Oxygen Delivery Method Room Air Weight: 98.7 kg Body Mass Index (BMI) 37.3 Intake & Output: Intake and Output for Last 24 Hours 03/24/25 03/25/25 03/26/25 23:59 23:59 23:59 Intake Total 2300 / 2300 3796.67 / 3796.67 550 / 550 Balance 2300 / 2300 3796.67 / 3796.67 550 / 550 Lab / Micro Data 03/26/25 04:34 03/26/25 04:34 Labs: Laboratory Results - last 24 hr 03/25/25 01:35: WBC 14.2 H, RBC 3.90 L, Hgb 11.9 L, Hct 35.4 L, MCV 90.8, MCH 30.5, MCHC 33.6, RDW Std Deviation 44.0 H, RDW Coeff of Valente 13.3, Plt Count 181,MPV 12.0, Immature Gran % (Auto) 0.200, Neut % (Auto) 85.3 H, Lymph % (Auto) 8.6L, [place] % (Auto) 5.8, Eos % (Auto) 0.0, Baso % (Auto) 0.1, Absolute Neuts (auto)12.1 H, Absolute Lymphs (auto) 1.22, Nucleated RBC % 0, Sodium 142, Potassium 3.2L, Chloride 112 H, Carbon Dioxide 18.3 L, Anion Gap 12, BUN 9, Creatinine 0.75, Estim Creat Clear Calc 100.15, Est GFR (MDRD) Non-Af 96, BUN/Creatinine Ratio 11.3, Glucose 124 H, Calcium 8.1 03/25/25 14:58: Hgb 11.7 L, Hct 34.9 L 03/26/25 04:34: WBC 11.2 H, RBC 3.57 L, Hgb 11.0 L, Hct 32.6 L, MCV 91.3, MCH 30.8, MCHC 33.7, RDW Std Deviation 45.5 H, RDW Coeff of Valente 13.5, Plt Count 160,MPV 11.0, Immature Gran % (Auto) 0.400, Neut % (Auto) 75.1 H, Lymph % (Auto) 17.2 L, [place] % (Auto) 6.0, Eos % (Auto) 0.9, Baso % (Auto) 0.4, Absolute Neuts (auto) 8.4 H, Absolute Lymphs (auto) 1.92, Nucleated RBC % 0, Sodium 140, Potassium 3.1 L, Chloride 109 H, Carbon Dioxide 21.1, Anion Gap 9, BUN 5, Creatinine 0.72, Estim Creat Clear Calc 104.32, Est GFR (MDRD) Non-Af 100, BUN/Creatinine Ratio 7.0 L, Glucose 106 H, Calcium 8.3 Physical Exam Const alert and no apparent distress HEENT head/scalp atraumatic and moist oral mucous membranes Resp normal respiratory effort, no retractions, no use of accessory muscles and clearto auscultation bilaterally Cardio regular rate, regular rhythm, S1 normal heart sound and S2 normal heart sound GI normal to inspection, nondistended, normoactive bowel sounds and soft to palpation GI Narrative: TTP on left side, no rebound. Extremity normal to inspection and full ROM Neuro Sensorium / Orientation: awake and alert Assessment & Plan Assessment/Plan (1) Colitis: PLAN: infectious v inflammatory v ischemia GI suspects ischemic colitis pt denies abx use in past 3 month (present hospitalization excluded) continue abx w cipro and metronidazole (2) LGI bleed: PLAN: 2/2 colitis no plans for endoscopy (3) ABLA (acute blood loss anemia): PLAN: 2/2 GIB. Hg 14.8 down to 11.9. monitor no need for transfusion PLAN: Plan VTE prophylaxis: SCDs. Charges/Coding Visit Charges Inpatient E&M: 48928 Subs Hosp L2 03/26/25 4850 Cosigner Signature (if applicable): CC: ~ Signed [facility]06-21-2025 Consult note Author Chelerachel Manriquez [facility] Note Date/Time March 25, 2025 2:34 pm [facility] Medical Records Department [address] [place] [address] Consultation - GI 03/25/25 1422 MR#: [id number] Acct: [id number] Name: BRISSA STEELE Rep #:[id number] : 1970 54 From: Chele Manriquez DO PCP: Dr. Tequila Renee MD Status:ADM IN Location: [place] [id number] ADDENDUM by Chele Manriquez DO on 03/25/25 at 1434 Multi Select Codes Visit Charges Visit Charges: 35231 Init Hosp L3 03/25/25 1434<Electronically signed by Chele Manriquez DO> Cosigner Signature (if applicable): cc: Dr. Bry Toribio DO; Dr. Tequila Renee MD ~* Signed HPI Consult Data Date of Consult: 03/25/25 HPI Narrative Reason for Consultation: GI bleed HPI Narrative: BRISSA STEELE, is a 54 F who presented to the ED with nausea, vomiting, diarrhea, and rectal bleeding that began yesterday. She admits to passing red blood from her rectum. Patient describes her pain as aching. Patient states her pain is mainly over the abdomen and into her back. Patient denies any hematemesis or coffee-ground emesis. Patient admits to some chills and sweats. Patient denies any chest pain or shortness of breath. In the ED she had multiple episodes of orthostatic hypotension with tachycardia accompanied by high-grade temperature of 100.4. Her hemoglobin was 15.2 and is down to 11.4. CT of the abdomen pelvis displayed : there is no free-fluid. There is no free air. There is no bowel obstruction. Normal appearance of the liver and spleen. Normal appearance of the gallbladder. Normal pancreas. Normal adrenal glands. No renal calculi or hydronephrosis. There is wall thickening involving the left colon with infiltration of the adjacent fat. There is no abscess. She was started on IV fluids along with ciprofloxacin and Flagyl. At this time she is feeling a little better as long as she does not try to move much. [facility] Medical History Chronic pain Pain Nausea Epigastric pain Wears glasses Cancer [...] #30 tabs multivitamin 1 cap PO DAILY suppleme 01/0410/23/24 History estradiol 14 mcg/24 hr weekly 1 patch transdermal QWEE K #4 ea 03/15/24 10/24/24 Rx transdermal patch lansoprazole 30 mg capsule,delayed 30 mg PO DAILY #90 caps 11/11/24 Unknown Rx release naltrexone 8 mg-bupropion 90 mg 2 tab PO BID 12 weeks #336 tabs 11/11/24 Unknown Rx tablet,extended release (Contrave) pregabalin 200 mg capsule (Lyrica) 150 mg PO BID pain 11/11/24 Unknown History ciprofloxacin HCl 500 mg tablet 500 mg PO BID #20 TABL ETS 03/24/25 Unknown Rx fluconazole 150 mg tablet 150 mg PO DAILY 1 dose #1 TA B 03/24/25 Unknown Rx metronidazole 500 mg tablet 500 mg PO Q6H #40 tabs Unknown Rx Allergy/AdvReac Type Severity Reaction Status Date / Time morphine (From Duramorph AdvReac Vomiting Verified 03/24/25 16:10 (PF)) Family History Mother Heart disease Hypertension [...] safe at home: Yes additional social history: Rweltfk-Zazk-Rbyojjq Comfort Control 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 Eyes: Patient denies changes in vision or discharge from eyes. ENT: Patient denies runny nose, sore throat or ear pain. Resp: Patient denies SOB or cough. CV: Patient denies chest pain, palpitations, heart racing or LE edema. GI: Patient admits to LGIB with BRBPR and nausea with vomiting productive of bilious emesis as per HPI. : Patient denies dysuria or hematuria. MSK: Patient denies arthralgias or myalgias. Skin: Patient denies rash, abscess, wounds or jaundice. Psych: Patient denies symptoms of uncontrolled depression or anxiety. Neuro: Patient denies headache, paresthesias or focal neurologic deficits. Allergy: Patient denies lip swelling, tongue swelling or urticaria. Hematology: Patient admits to IB with BRBPR. Endocrinology: Patient denies polyuria, polydipsia, polyphagia or heat/cold intolerance. 14 point ROS otherwise negative except for positives noted above in HPI. Physical Exam Const alert, oriented x3, no apparent distress and healthy appearing General Appearance: cooperative GI normal to inspection, nondistended, normoactive bowel sounds, soft to palpation,non-tender and non-distended Percussion: normal to percussion Rectal Exam: deferred Lab / Micro Data 03/25/25 01:35 03/25/25 01:35 Labs: Laboratory Results - last 24 hr 03/24/25 16:57: WBC 15.1 H, RBC 4.86, Hgb 14.8, Hct 43.2, MCV 88.9, MCH 30.5, MCHC 34.3, RDW Std Deviation 42.4, RDW Coeff of Valente 13.0, Plt Count 251, MPV 11.6, Immature Gran % (Auto) 0.500, Neut % (Auto) 89.3 H, Lymph % (Auto) 6.7 L, [place] % (Auto) 3.4, Eos % (Auto) 0.0, Baso % (Auto) 0.1, Absolute Neuts (auto) 13.5 H, Absolute Lymphs (auto) 1.01, Nucleated RBC % 0, Sodium 142, Potassium 3.7, Chloride 105, Carbon Dioxide 23.2, Anion Gap 14, BUN 11, Creatinine 0.74, Estim Creat Clear Calc 101.35, Est GFR (MDRD) Non-Af 98, BUN/Creatinine Ratio 15.0, Glucose 110 H, Calcium 10.1, Total Bilirubin 0.47, AST 21, ALT 18, Alkaline Phosphatase 106 H, Total Protein 7.3, Albumin 4.5, Globulin 2.8, Albumin/Globulin Ratio 1.6, Lipase 15 03/24/25 19:47: Urine Color Straw, Urine Clarity Clear, Urine pH 8.0, Ur Specific [place] 1.010, Urine Protein 15 H, Urine Glucose (UA) Normal, Urine Ketones Negative, Urine Occult Blood 50 H, Urine Nitrite Negative, Urine Bilirubin Negative, Urine Urobilinogen Normal, Ur Leukocyte Esterase Negative, Urine RBC 0-5 SEEN, Urine WBC 0-5 SEEN, Ur Squamous Epith Cells 0 SEEN, Urine Bacteria RARE, Urine Mucus 0 SEEN 03/24/25 23:12: PT 15.0 H, INR 1.2, APTT 32.9 03/24/25 23:16: Lactic Acid 1.0 03/24/25 23:25: Blood Type A POSITIVE, Antibody Screen NEGATIVE 03/25/25 01:35: WBC 14.2 H, RBC 3.90 L, Hgb 11.9 L, Hct 35.4 L, MCV 90.8, MCH 30.5, MCHC 33.6, RDW Std Deviation 44.0 H, RDW Coeff of Valente 13.3, Plt Count 181,MPV 12.0, Immature Gran % (Auto) 0.200, Neut % (Auto) 85.3 H, Lymph % (Auto) 8.6L, [place] % (Auto) 5.8, Eos % (Auto) 0.0, Baso % (Auto) 0.1, Absolute Neuts (auto)12.1 H, Absolute Lymphs (auto) 1.22, Nucleated RBC % 0, Sodium 142, Potassium 3.2 L, Chloride 112 H, Carbon Dioxide 18.3 L, Anion Gap 12, BUN 9, Creatinine 0.75, Estim Creat Clear Calc 100.15, Est GFR (MDRD) Non-Af 96, BUN/Creatinine Ratio 11.3, Glucose 124 H, Lactic Acid < 1.0, Calcium 8.1, TSH 0.364 Imaging Radiology Impression Abdomen/Pelvis CT 03/24/25 17:08 IMPRESSION: Colitis on the left. No obstruction. Lung bases are clear Reading Location: [facility] Assessment & Plan Assessment/Plan (1) ABLA (acute blood loss anemia): (2) Nausea and vomiting: QUALIFIERS: Vomiting type: bilious vomiting Qualified Code(s): R11.14 - Bilious vomiting (3) LGI bleed: PLAN: 54-year-old comes in with crampy abdominal pain followed by multiple episodes of nausea, vomiting and diarrhea which turned into bloody diarrhea. CTscan abdomen pelvis shows diffuse colitis from the splenic flexure all way down to the rectosigmoid junction. This is classic for left-sided ischemic colitis. The natural history of left-sided ischemic colitis typically involves an acute onset of symptoms, followed by recovery or, in some cases, complications. 1. Acute Phase: * Sudden onset:?Patients usually experience sudden onset of crampy abdominal pain, often in the lower left abdomen. * Bloody stools:?This is a hallmark symptom, with blood in the stool, either bright red or maroon, occurring within 24 hours of pain onset. * Urgent need to defecate:?A frequent symptom in the early stages. * Hyperactive phase:?Some may experience a hyperactive phase with severe pain and bloody stools, after which they recover. * Possible diarrhea, nausea, vomiting:?These can also be present 2. Course and Recovery: * Most common outcome:?In about 75% of cases, left-sided ischemic colitis is mild and transient, affecting only the inner lining of the colon. * Conservative treatment:?Many patients recover fully with supportive care, including IV fluids, bowel rest, and antibiotics. * Resolution:?Symptoms usually resolve within 48-72 hours, and the colon heals in 1-2 weeks Recommendations: - DC precautions as I do not think she has infectious colitis - I do not think she needs a workup for hypercoagulable disorder at this time because it is her first episode and is also left-sided: - She is in need antiplatelet or anticoagulation prophylaxis due to her first episode She will continue antibiotics for approximately 10 days- -it is okay to advance her diet as tolerated - She will need colonoscopy in 4 to 6 weeks so we can see resolution and make sure that she does not have atypical inflammatory bowel disease. - I will give her Bentyl 20 mg p.o. every 6 as needed and try to avoid pain medications. - Start Colace 100 mg p.o. daily 03/25/25 1434 <Electronically signed by Chele Manriquez DO> Cosigner Signature (if applicable): CC: Dr. Bry Toribio DO; Dr. Tequila Renee MD~ Signed [facility] Work Phone: 1(150) 824-530806-21-2025 Consult note [facility] Medical Records Department [address] [place] [address] Consultation - GI 03/25/25 1422 MR#: [id number] Acct: [id number] Name: BRISSA STEELE Rep #:[id number] : 1970 54 From: Chele Manriquez DO PCP: Dr. Tequila Renee MD Status:ADM IN Location: [place] [address] ADDENDUM by Chele Manriquez DO on 03/25/25 at 1434 Multi Select Codes Visit Charges Visit Charges: 39009 Init Hosp L3 03/25/25 1434 Cosigner Signature (if applicable): cc: Dr. Bry Toribio DO; Dr. Tequila Renee MD ~* Signed HPI Consult Data Date of Consult: 03/25/25 HPI Narrative Reason for Consultation: GI bleed HPI Narrative: BRISSA STEELE, is a 54 F who presented to the ED with nausea, vomiting, diarrhea, and rectal bleeding that began yesterday. She admits to passing red blood from her rectum. Patient describes her painas aching. Patient states her pain is mainly over the abdomen and into her back. Patient denies anyhematemesis or coffee-ground emesis. Patient admits to some chills and sweats. Patient denies any chest pain or shortness of breath. In the ED she had multiple episodes of orthostatic hypotension with tachycardia accompanied by high-grade temperature of 100.4. Her hemoglobin was 15.2 and is down to 11.4. CT of the abdomen pelvis displayed : there is no free-fluid. There is no free air. There is no bowel obstruction. Normal appearance of the liver and spleen. Normal appearance of the gallbladder. Normal pancreas. Normal adrenal glands. No renal calculi or hydronephrosis. There is wall thickening involving the left colon with infiltration of the adjacent fat. There is no abscess. She was started on IV fluids along with ciprofloxacin and Flagyl. At this time she is feeling a little better as long as she does not try to move much. [facility] Medical History Chronic pain Pain Nausea Epigastric pain Wears glasses Cancer [...] #30 tabs multivitamin 1 cap PO DAILY suppleme 01/0410/23/24 History estradiol 14 mcg/24 hr weekly 1 patch transdermal QWEE K #4 ea 03/15/24 10/24/24 Rx transdermal patch lansoprazole 30 mg capsule,delayed 30 mg PO DAILY #90 caps 11/11/24 Unknown Rx release naltrexone 8 mg-bupropion 90 mg 2 tab PO BID 12 weeks #336 tabs 11/11/24 Unknown Rx tablet,extended release (Contrave) pregabalin 200 mg capsule (Lyrica) 150 mg PO BID pain 11/11/24 Unknown History ciprofloxacin HCl 500 mg tablet 500 mg PO BID #20 TABL ETS 03/24/25 Unknown Rx fluconazole 150 mg tablet 150 mg PO DAILY 1 dose #1 TA B 03/24/25 Unknown Rx metronidazole 500 mg tablet 500 mg PO Q6H #40 tabs Unknown Rx Allergy/AdvReac Type Severity Reaction Status Date / Time morphine (From Duramorph AdvReac Vomiting Verified 03/24/25 16:10 (PF)) Family History Mother Heart disease Hypertension [...] safe at home: Yes additional social history: Jbifvrr-Jbaq-Olqmbdm Comfort Control 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 Eyes: Patient denies changes in vision or discharge from eyes. ENT: Patient denies runny nose, sore throat or ear pain. Resp: Patient denies SOB or cough. CV: Patient denies chest pain, palpitations, heart racing or LE edema. GI: Patient admits to LGIB with BRBPR and nausea with vomiting productive of bilious emesis as per HPI. : Patient denies dysuria or hematuria. MSK: Patient denies arthralgias or myalgias. Skin: Patient denies rash, abscess, wounds or jaundice. Psych: Patient denies symptoms of uncontrolled depression or anxiety. Neuro: Patient denies headache, paresthesias or focal neurologic deficits. Allergy: Patient denies lip swelling, tongue swelling or urticaria. Hematology: Patient admits to LGIB with BRBPR. Endocrinology: Patient denies polyuria, polydipsia, polyphagia or heat/cold intolerance. 14 point ROS otherwise negative except for positives noted above in HPI. Physical Exam Const alert, oriented x3, no apparent distress and healthy appearing General Appearance: cooperative GI normal to inspection, nondistended, normoactive bowel sounds, soft to palpation,non-tender and non-distended Percussion: normal to percussion Rectal Exam: deferred Lab / Micro Data 03/25/25 01:35 03/25/25 01:35 Labs: Laboratory Results - last 24 hr 03/24/25 16:57: WBC 15.1 H, RBC 4.86, Hgb 14.8, Hct 43.2, MCV 88.9, MCH 30.5, MCHC 34.3, RDW Std Deviation 42.4, RDW Coeff of Valente 13.0, Plt Count 251, MPV 11.6, Immature Gran % (Auto) 0.500, Neut % (Auto) 89.3 H, Lymph % (Auto) 6.7 L, [place] % (Auto) 3.4, Eos % (Auto) 0.0, Baso % (Auto) 0.1, AbsoluteNeuts (auto) 13.5 H, Absolute Lymphs (auto) 1.01, Nucleated RBC % 0, Sodium 142, Potassium 3.7, Chloride 105, Carbon Dioxide 23.2, Anion Gap 14, BUN 11, Creatinine 0.74, Estim Creat Clear Calc 101.35, Est GFR (MDRD) Non-Af 98, BUN/Creatinine Ratio 15.0, Glucose 110 H, Calcium 10.1, Total Bilirubin 0.47, AST 21, ALT 18, Alkaline Phosphatase 106 H, Total Protein 7.3, Albumin 4.5, Globulin 2.8, Album in/Globulin Ratio 1.6, Lipase 15 03/24/25 19:47: Urine Color Straw, Urine Clarity Clear, Urine pH 8.0, Ur Specific [place] 1.010, Urine Protein 15 H, Urine Glucose (UA) Normal, Urine Ketones Negative, Urine Occult Blood 50 H, Urine Nitrite Negative, Urine Bilirubin Negative, Urine Urobilinogen Normal, Ur Leukocyte Esterase Negative, Urine RBC 0-5 SEEN, Urine WBC 0-5 SEEN, Ur Squamous Epith Cells 0 SEEN, Urine Bacteria RARE, Urine Mucus 0 SEEN 03/24/25 23:12: PT 15.0 H, INR 1.2, APTT 32.9 03/24/25 23:16: Lactic Acid 1.0 03/24/25 23:25: Blood Type A POSITIVE, Antibody Screen NEGATIVE 03/25/25 01:35: WBC 14.2 H, RBC 3.90 L, Hgb 11.9 L, Hct 35.4 L, MCV 90.8, MCH 30.5, MCHC 33.6, RDW Std Deviation 44.0 H, RDW Coeff of Valente 13.3, Plt Count 181,MPV 12.0, Immature Gran % (Auto) 0.200, Neut % (Auto) 85.3 H, Lymph % (Auto) 8.6L, [place] % (Auto) 5.8, Eos % (Auto) 0.0, Baso % (Auto) 0.1, Absolute Neuts (auto)12.1 H, Absolute Lymphs (auto) 1.22, Nucleated RBC % 0, Sodium 142, Potassium 3.2L, Chloride 112 H, Carbon Dioxide 18.3 L, Anion Gap 12, BUN 9, Creatinine 0.75, Estim Creat Clear Calc 100.15, Est GFR (MDRD) Non-Af 96, BUN/Creatinine Ratio 11.3, Glucose 124 H, Lactic Acid < 1.0, Calcium 8.1, TSH 0.364 Imaging Radiology Impression Abdomen/Pelvis CT 03/24/25 17:08 IMPRESSION: Colitis on the left. No obstruction. Lung bases are clear Reading Location: [facility] Assessment & Plan Assessment/Plan (1) ABLA (acute blood loss anemia): (2) Nausea and vomiting: QUALIFIERS: Vomiting type: bilious vomiting Qualified Code(s): R11.14 - Bilious vomiting (3) LGI bleed: PLAN: 54-year-old comes in with crampy abdominal pain followed by multiple episodes of nausea, vomiting and diarrhea which turned into bloody diarrhea. CTscan abdomen pelvis shows diffuse colitis from the splenic flexure all way down to the rectosigmoid junction. This is classic for left-sided ischemic colitis. The natural history of left-sided ischemic colitis typically involves an acute onset of symptoms, followed by recovery or, in some cases, complications. 1. Acute Phase: * Sudden onset:?Patients usually experience sudden onset of crampy abdominal pain, often in the lower left abdomen. * Bloody stools:?This is a hallmark symptom, with blood in the stool, either bright red or maroon, occurring within 24 hours of pain onset. * Urgent need to defecate:?A frequent symptom in the early stages. * Hyperactive phase:?Some may experience a hyperactive phase with severe pain and bloody stools, after which they recover. * Possible diarrhea, nausea, vomiting:?These can also be present 2. Course and Recovery: * Most common outcome:?In about 75% of cases, left-sided ischemic colitis is mild and transient, affecting only the inner lining of the colon. * Conservative treatment:?Many patients recover fully with supportive care, including IV fluids, bowel rest, and antibiotics. * Resolution:?Symptoms usually resolve within 48-72 hours, and the colon heals in 1-2 weeks Recommendations: - DC precautions as I do not think she has infectious colitis - I do not think she needs a workup for hypercoagulable disorder at this time because it is her first episode and is also left-sided: - She is in need antiplatelet or anticoagulation prophylaxis due to her first episode She will continue antibiotics for approximately 10 days- -it is okay to advance her diet as tolerated - She will need colonoscopy in 4 to 6 weeks so we can see resolution and make sure that she does not have atypical inflammatory bowel disease. - I will give her Bentyl 20 mg p.o. every 6 as needed and try to avoid pain medications. - Start Colace 100 mg p.o. daily 03/25/25 1434 Cosigner Signature (if applicable): CC: Dr. Bry Toribio DO; Dr. Tequila Renee MD~ Signed [facility]06-21-2025 Progress note Author Bry Dominguez [facility] Note Date/Time March 25, 2025 11:[address] [place] [address] [facility] Medical Records Department [address] [place] [id number] Progress Note - Hospitalist 03/25/25 0820 MR#: [id number] Acct: [id number] Name: BRISSA STEELE Rep #:[id number] : 1970 54 From: Bry Dominguez DO PCP: Dr. Tequila Renee MD Status:ADM IN Location: [place] [address] Reason for Visit Reason for Visit: Diagnoses Sepsis, unspecified organism (03/25/25) Elevated white blood cell count, unspecified (03/25/25) Obesity, unspecified (03/25/25) Hypotension, unspecified (03/25/25) Noninfective gastroenteritis and colitis, unspecified (03/25/25) Gastrointestinal hemorrhage, unspecified (03/25/25) Bilious vomiting (03/25/25) Fever, unspecified (03/25/25) Subjective Subjective Still with abdominal pain and hematochezia. Objective Data Objective Data Vital Signs: Vital Signs Temp Pulse Resp BP Pulse Ox O2 Del Method 37.1 C 87 18 99/60 94 Room Air 03/25/25 04:00 03/25/25 04:00 03/25/25 04:00 03/25/25 04:00 03/25/25 04:00 03/25/25 04:00 Oxygen Delivery Method Room Air Weight: 98.7 kg Body Mass Index (BMI) 37.3 Intake & Output: Intake and Output for Last 24 Hours 03/23/25 03/24/25 03/25/25 23:59 23:59 23:59 Intake Total 2300 / 2300 1836.67 / 1836.67 Balance 2300 / 2300 1836.67 / 1836.67 Lab / Micro Data 03/25/25 01:35 03/24/25 16:57 Labs: Laboratory Results - last 24 hr 03/24/25 16:57: WBC 15.1 H, RBC 4.86, Hgb 14.8, Hct 43.2, MCV 88.9, MCH 30.5, MCHC 34.3, RDW Std Deviation 42.4, RDW Coeff of Valente 13.0, Plt Count 251, MPV 11.6, Immature Gran % (Auto) 0.500, Neut % (Auto) 89.3 H, Lymph % (Auto) 6.7 L, [place] % (Auto) 3.4, Eos % (Auto) 0.0, Baso % (Auto) 0.1, Absolute Neuts (auto) 13.5 H, Absolute Lymphs (auto) 1.01, Nucleated RBC % 0, Sodium 142, Potassium 3.7, Chloride 105, Carbon Dioxide 23.2, Anion Gap 14, BUN 11, Creatinine 0.74, Estim Creat Clear Calc 101.35, Est GFR (MDRD) Non-Af 98, BUN/Creatinine Ratio 15.0, Glucose 110 H, Calcium 10.1, Total Bilirubin 0.47, AST 21, ALT 18, Alkaline Phosphatase 106 H, Total Protein 7.3, Albumin 4.5, Globulin 2.8, Albumin/Globulin Ratio 1.6, Lipase 15 03/24/25 19:47: Urine Color Straw, Urine Clarity Clear, Urine pH 8.0, Ur Specific [place] 1.010, Urine Protein 15 H, Urine Glucose (UA) Normal, Urine Ketones Negative, Urine Occult Blood 50 H, Urine Nitrite Negative, Urine Bilirubin Negative, Urine Urobilinogen Normal, Ur Leukocyte Esterase Negative, Urine RBC 0-5 SEEN, Urine WBC 0-5 SEEN, Ur Squamous Epith Cells 0 SEEN, Urine Bacteria RARE, Urine Mucus 0 SEEN 03/24/25 23:12: PT 15.0 H, INR 1.2, APTT 32.9 03/24/25 23:16: Lactic Acid 1.0 03/24/25 23:25: Blood Type A POSITIVE, Antibody Screen NEGATIVE 03/25/25 01:35: Lactic Acid < 1.0, TSH 0.364 Radiography Diagnostic Testing: Radiology Impression Abdomen/Pelvis CT 03/24/25 17:08 IMPRESSION: Colitis on the left. No obstruction. Lung bases are clear Reading Location: [facility] Physical Exam Const alert and no apparent distress Constitutional Narrative: uncomoftable. HEENT head/scalp atraumatic and moist oral mucous membranes Resp normal respiratory effort, no retractions, no use of accessory muscles and clearto auscultation bilaterally Cardio regular rate, regular rhythm, S1 normal heart sound and S2 normal heart sound Neuro Sensorium / Orientation: awake and alert Assessment & Plan Assessment/Plan (1) Colitis: PLAN: infectious v inflammatory v ischemia pt denies abx use in past 3 month (present hospitalization excluded) continue abx w cipro and metronidazole (2) LGI bleed: PLAN: 2/2 colitis Gi consult (3) ABLA (acute blood loss anemia): PLAN: 2/2 GIB. Hg 14.8 down to 11.9. monitor no need for transfusion PLAN: Plan VTE prophylaxis: SCDs. Charges/Coding Visit Charges Inpatient E&M: 60455 Subs Hosp L2 03/25/25 1110 <Electronically signed by Bry Dominguez DO> Cosigner Signature (if applicable): CC: ~ Signed [facility] Work Phone: 1(304) 382-774706-21-2025 Progress note [facility] Medical Records Department [address] [place] [address] Progress Note - Hospitalist 03/25/25 08 MR#: [id number] Acct: [id number] Name: BRISSA STEELE Rep #:[id number] : 1970 54 From: Bry Dominguez DO PCP: Dr. Tequila Renee MD Status:ADM IN Location: [facility] [id number] Reason for Visit Reason for Visit: Diagnoses Sepsis, unspecified organism (03/25/25) Elevated white blood cell count, unspecified (03/25/25) Obesity, unspecified (03/25/25) Hypotension, unspecified (03/25/25) Noninfective gastroenteritis and colitis, unspecified (03/25/25) Gastrointestinal hemorrhage, unspecified (03/25/25) Bilious vomiting (03/25/25) Fever, unspecified (03/25/25) Subjective Subjective Still with abdominal pain and hematochezia. Objective Data Objective Data Vital Signs: Vital Signs Temp Pulse Resp BP Pulse Ox O2 Del Method 37.1 C 87 18 99/60 94 Room Air 03/25/25 04:00 03/25/25 04:00 03/25/25 04:00 03/25/25 04:00 03/25/25 04:00 03/25/25 04:00 Oxygen Delivery Method Room Air Weight: 98.7 kg Body Mass Index (BMI) 37.3 Intake & Output: Intake and Output for Last 24 Hours 03/23/25 03/24/25 03/25/25 23:59 23:59 23:59 Intake Total 2300 / 2300 1836.67 / 1836.67 Balance 2300 / 2300 1836.67 / 1836.67 Lab / Micro Data 03/25/25 01:35 03/24/25 16:57 Labs: Laboratory Results - last 24 hr 03/24/25 16:57: WBC 15.1 H, RBC 4.86, Hgb 14.8, Hct 43.2, MCV 88.9, MCH 30.5, MCHC 34.3, RDW Std Deviation 42.4, RDW Coeff of Valente 13.0, Plt Count 251, MPV 11.6, Immature Gran % (Auto) 0.500, Neut % (Auto) 89.3 H, Lymph % (Auto) 6.7 L, [place] % (Auto) 3.4, Eos % (Auto) 0.0, Baso % (Auto) 0.1, AbsoluteNeuts (auto) 13.5 H, Absolute Lymphs (auto) 1.01, Nucleated RBC % 0, Sodium 142, Potassium 3.7, Chloride 105, Carbon Dioxide 23.2, Anion Gap 14, BUN 11, Creatinine 0.74, Estim Creat Clear Calc 101.35, Est GFR (MDRD) Non-Af 98, BUN/Creatinine Ratio 15.0, Glucose 110 H, Calcium 10.1, Total Bilirubin 0.47, AST 21, ALT 18, Alkaline Phosphatase 106 H, Total Protein 7.3, Albumin 4.5, Globulin 2.8, Album in/Globulin Ratio 1.6, Lipase 15 03/24/25 19:47: Urine Color Straw, Urine Clarity Clear, Urine pH 8.0, Ur Specific [place] 1.010, Urine Protein 15 H, Urine Glucose (UA) Normal, Urine Ketones Negative, Urine Occult Blood 50 H, Urine Nitrite Negative, Urine Bilirubin Negative, Urine Urobilinogen Normal, Ur Leukocyte Esterase Negative, Urine RBC 0-5 SEEN, Urine WBC 0-5 SEEN, Ur Squamous Epith Cells 0 SEEN, Urine Bacteria RARE, Urine Mucus 0 SEEN 03/24/25 23:12: PT 15.0 H, INR 1.2, APTT 32.9 03/24/25 23:16: Lactic Acid 1.0 03/24/25 23:25: Blood Type A POSITIVE, Antibody Screen NEGATIVE 03/25/25 01:35: Lactic Acid < 1.0, TSH 0.364 Radiography Diagnostic Testing: Radiology Impression Abdomen/Pelvis CT 03/24/25 17:08 IMPRESSION: Colitis on the left. No obstruction. Lung bases are clear Reading Location: [facility] Physical Exam Const alert and no apparent distress Constitutional Narrative: uncomoftable. HEENT head/scalp atraumatic and moist oral mucous membranes Resp normal respiratory effort, no retractions, no use of accessory muscles and clearto auscultation bilaterally Cardio regular rate, regular rhythm, S1 normal heart sound and S2 normal heart sound Neuro Sensorium / Orientation: awake and alert Assessment & Plan Assessment/Plan (1) Colitis: PLAN: infectious v inflammatory v ischemia pt denies abx use in past 3 month (present hospitalization excluded) continue abx w cipro and metronidazole (2) LGI bleed: PLAN: 2/2 colitis Gi consult (3) ABLA (acute blood loss anemia): PLAN: 2/2 GIB. Hg 14.8 down to 11.9. monitor no need for transfusion PLAN: Plan VTE prophylaxis: SCDs. Charges/Coding Visit Charges Inpatient E&M: 47341 Subs Hosp L2 03/25/25 1110 Cosigner Signature (if applicable): CC: ~ Signed [facility]06-21-2025 History and physical note Author Jason Narayanan [facility] Note Date/Time March 25, 2025 6:11 am [facility] Medical Records Department [address] [place] [address] H&P Exam - Hospitalist 03/24/25 2347 MR#: [id number] Acct: [id number] Name: BRISSA STEELE Rep #:[id number] : 1970 54 From: Jason Correa DO PCP: Dr. Tequila Renee MD Status:ADM IN Location: [place] [address] HPI - General General Date of Admission: 03/25/25 Date of Service: 03/24/25 Chief Complaint: LGIB with Nausea, Vomiting and Fever. HPI Narrative BRISSA STEELE, is a 54 F with a past medical history of obesity; with BMI of 37.2 this admission on Contrave, history of Right parotid cancer; s/p parotidectomy, history of Right trigeminal neuralgia; on gabapentin, history of laparoscopic BSO; on estradiol patch, GERD; on lansoprazole and OA; with historyof Right knee arthroscopy and back pain radiating into legs on prn naproxen who presents to [facility] ER complaining of Lower GI Bleed, nausea,vomiting and Fever. Ms. Steele reports her symptoms began approximately one day prior to admission the abrupt- onset of LGIB with nausea and vomiting with bilious emesis. She states she has been passing BRBPR with associated achingpain that is made worse with standing with radiation and is also radiating into her abdomen and back. She also admits to intermittent chills and sweats with patient spiking a temperature to 100.6 degrees Fahrenheit while in ER. She denies related hematemesis, coffee-ground emesis, chest pain, SOB, headache or rash. In the ER she was noted to have a CT scan of the abdomen and pelvis positive for Colitis with wall thickening of the Left colon with infiltration ofthe adjacent fat, with no evidence of abscess with corresponding laboratory evidence of Leukocytosis of 15.1K present on admission complicated by LGIB with BRBPR and Fever with Hypotension of 91/47 mmHg concerning for possible Sepsis and she was then admitted to the PCU for ongoing care for treatment under the Sepsis protocol for a stay that is expected to extend beyond 2 midnights. [facility] Medical History (Updated 03/25/25 @ 01:18 by Isis Olivier) Chronic pain Pain Nausea Epigastric pain Wears glasses Cancer [...] #30 tabs multivitamin 1 cap PO DAILY suppleme /05/2710/23/24 History estradiol 14 mcg/24 hr weekly 1 patch transdermal QWEE K #4 ea 03/15/24 10/24/24 Rx transdermal patch lansoprazole 30 mg capsule,delayed 30 mg PO DAILY #90 caps 11/11/24 Unknown Rx release naltrexone 8 mg-bupropion 90 mg 2 tab PO BID 12 weeks #336 tabs 11/11/24 Unknown Rx tablet,extended release (Contrave) pregabalin 200 mg capsule (Lyrica) 150 mg PO BID pain 11/11/24 Unknown History ciprofloxacin HCl 500 mg tablet 500 mg PO BID #20 TABL ETS 03/24/25 Unknown Rx fluconazole 150 mg tablet 150 mg PO DAILY 1 dose #1 TA B 03/24/25 Unknown Rx metronidazole 500 mg tablet 500 mg PO Q6H #40 tabs Unknown Rx Allergy/AdvReac Type Severity Reaction Status Date / Time morphine (From Duramorph AdvReac Vomiting Verified 03/24/25 16:10 (PF)) Family History Mother Heart disease Hypertension [...] safe at home: Yes additional social history: Udtviap-Zpyv-Lmwixro Comfort Control 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 Eyes: Patient denies changes in vision or discharge from eyes. ENT: Patient denies runny nose, sore throat or ear pain. Resp: Patient denies SOB or cough. CV: Patient denies chest pain, palpitations, heart racing or LE edema. GI: Patient admits to LGIB with BRBPR and nausea with vomiting productive of bilious emesis as per HPI. : Patient denies dysuria or hematuria. MSK: Patient denies arthralgias or myalgias. Skin: Patient denies rash, abscess, wounds or jaundice. Psych: Patient denies symptoms of uncontrolled depression or anxiety. Neuro: Patient denies headache, paresthesias or focal neurologic deficits. Allergy: Patient denies lip swelling, tongue swelling or urticaria. Hematology: Patient admits to LGIB with BRBPR. Endocrinology: Patient denies polyuria, polydipsia, polyphagia or heat/cold intolerance. 14 point ROS otherwise negative except for positives noted above in HPI. Vital Signs Vital Signs Vital Signs: 03/24/25 16:04 03/24/25 16:47 03/24/25 17:10 Temperature 96.8 F L 98.8 F 98.3 F Temperature Source Temporal Oral Oral Pulse Rate 98 93 84 Respiratory Rate 22 H 20 H 16 Blood Pressure 121/85 H 133/68 H 116/67 Blood Pressure Mean 97 89 83 Pulse Ox 100 94 99 Oxygen Delivery Method Room Air Room Air Room Air 03/24/25 18:00 03/24/25 20:00 03/24/25 22:11 Temperature 98.1 F 100.2 F H Temperature Source Oral Oral Pulse Rate 84 96 115 H Respiratory Rate 16 16 16 Blood Pressure 122/79 H 108/54 L 93/50 L Blood Pressure Mean 93 72 64 Pulse Ox 100 98 95 Oxygen Delivery Method Room Air Room Air Room Air 03/24/25 22:37 03/24/25 22:52 03/24/25 22:56 Temperature Temperature Source Pulse Rate 97 95 99 Respiratory Rate 15 16 16 Blood Pressure 99/49 L 91/47 L 91/47 L Blood Pressure Mean 65 61 61 Pulse Ox 95 95 98 Oxygen Delivery Method Room Air Room Air 03/24/25 22:57 03/24/25 23:32 Temperature 100.6 F H 100.6 F H Temperature Source Oral Pulse Rate 96 95 Respiratory Rate 18 15 Blood Pressure 91/47 L 98/48 L Blood Pressure Mean 61 64 Pulse Ox 95 93 Oxygen Delivery Method Room Air Weight Weight: 217 lb Body Mass Index (BMI) 37.2 Results Medical Records Data Attestation: I reviewed the patient's medical records Lab / Micro Data Attestation: I reviewed the patient's lab results. 03/24/25 16:57 03/24/25 16:57 Labs: Laboratory Results - last 24 hr 03/24/25 16:57: WBC 15.1 H, RBC 4.86, Hgb 14.8, Hct 43.2, MCV 88.9, MCH 30.5, MCHC 34.3, RDW Std Deviation 42.4, RDW Coeff of Valente 13.0, Plt Count 251, MPV 11.6, Immature Gran % (Auto) 0.500, Neut % (Auto) 89.3 H, Lymph % (Auto) 6.7 L, [place] % (Auto) 3.4, Eos % (Auto) 0.0, Baso % (Auto) 0.1, Absolute Neuts (auto) 13.5 H, Absolute Lymphs (auto) 1.01, Nucleated RBC % 0, Sodium 142, Potassium 3.7, Chloride 105, Carbon Dioxide 23.2, Anion Gap 14, BUN 11, Creatinine 0.74, Estim Creat Clear Calc 101.35, Est GFR (MDRD) Non-Af 98, BUN/Creatinine Ratio 15.0, Glucose 110 H, Calcium 10.1, Total Bilirubin 0.47, AST 21, ALT 18, Alkaline Phosphatase 106 H, Total Protein 7.3, Albumin 4.5, Globulin 2.8, Albumin/Globulin Ratio 1.6, Lipase 15 03/24/25 19:47: Urine Color Straw, Urine Clarity Clear, Urine pH 8.0, Ur Specific [place] 1.010, Urine Protein 15 H, Urine Glucose (UA) Normal, Urine Ketones Negative, Urine Occult Blood 50 H, Urine Nitrite Negative, Urine Bilirubin Negative, Urine Urobilinogen Normal, Ur Leukocyte Esterase Negative, Urine RBC 0-5 SEEN, Urine WBC 0-5 SEEN, Ur Squamous Epith Cells 0 SEEN, Urine Bacteria RARE, Urine Mucus 0 SEEN 03/24/25 23:12: PT 15.0 H, INR 1.2, APTT 32.9 Imaging Radiology Impression Abdomen/Pelvis CT 03/24/25 17:08 IMPRESSION: Colitis on the left. No obstruction. Lung bases are clear Reading [facility] Assessment & Plan Assessment/Plan (1) Colitis: (2) Sepsis: QUALIFIERS: Sepsis acute organ dysfunction status: without acute organ dysfunction Sepsis type: sepsis due to unspecified organism Qualified Code(s): A41.9 - Sepsis, unspecified organism (3) Fever: QUALIFIERS: Fever type: unspecified Qualified Code(s): R50.9 - Fever, unspecified (4) Leukocytosis: QUALIFIERS: Leukocytosis type: unspecified Qualified Code(s): D72.829 - Elevated white blood cell count, unspecified (5) Hypotension: QUALIFIERS: Hypotension type: unspecified hypotension type Qualified Code(s): I95.9 - Hypotension, unspecified (6) LGI bleed: (7) Nausea and vomiting: QUALIFIERS: Vomiting type: bilious vomiting Qualified Code(s): R11.14 - Bilious vomiting (8) Obesity (BMI 30-39.9): PLAN: Plan 1. CT scan of the abdomen and pelvis positive for Colitis with wall thickening of the Left colon with infiltration of the adjacent fat, with no evidence of abscess with corresponding laboratory evidence of Leukocytosis of 15.1K, Fever to ~100.6 degrees Fahrenheit and present on admission and Hypotension of 91/47 mmHg concerning for possible Sepsis - Admit to PCU for treatment under the Sepsis protocol. Continue empiric IV ciprofloxacin and IV metronidazole begun in the ER and await culture and sensitivity data. Keep NPO and give pantoprazole 40 mg IV daily for GI prophylaxis. Give acetaminophen [place] prn for [id number] (level 1-5/10) pain or fever. Give IV morphine prn for severe (level 6-10/10) pain. 2. LGIB with BRBPR complicating #1 - Keep NPO for now. Type & Screen blood andtransfuse for hemoglobin < 7g dL. Case Manager Specialist on-call contacted by ER physician with formal consultation pending in the AM and appreciated in advance. 3. Nausea and Vomiting with bilious emesis complicating #1 & #2 in the setting of previously known GERD; on lansoprazole - We will give IV ondansetron prn fornausea and vomiting. Give promethazine IM prn for breakthrough nausea. Maintain PPI as outlined in #1. 4. Obesity; with BMI of 37.2 this admission on Contrave - Weight loss will be recommended. Check TSH. Restart contrave after GI evaluation is completed. This complicates her case and may hamper recovery. 5. History of Right parotid cancer; s/p parotidectomy - Noted. 6. History of Right trigeminal neuralgia; on gabapentin - Restart gabapentin when patient cleared for oral intake by GI. 7. History of laparoscopic BSO; on estradiol patch - Stable. 8. OA; with history of Right knee arthroscopy and back pain radiating into legson prn naproxen - Hold naproxen in light of #1. We will give acetaminophen prn according to scale outlined in #1. 9. DVT prophylaxis - SCD's only in light of #2. Total time: Approximately (but not less than) 75 minutes. Sepsis Attestation Sepsis Alert: Yes Sepsis Attestation: Sepsis Ruled Out Date exam was performed: 03/25/25 Time exam was performed: 00:30 Possible Source of Sepsis: GI tract/intra-abdominal Sepsis Organ Dysfunction Criteria Present: SBP < 90 mmHg or MAP < 65 mmHg and SBP decrease of more than 40 mmHg Fluid Resuscitation Fluid resuscitation indicated?: Yes Fluid Resuscitation ordered: 30 ml/kg fluid bolus ordered Amount of fluid ordered: 2 Sepsis Note Date exam was performed: 03/25/25 Time exam was performed: 04:00 Sepsis Attestation: Sepsis re-evaluation was performed Response to fluids: Fluid responsive hypotension Charges/Coding Visit Charges Inpatient E&M: 18349 Init Hosp L3 03/25/25 0611 <Electronically signed by Jason Watters DO> Cosigner Signature (if applicable): CC: Dr. Jason Watters DO; Dr. Tequila Renee MD~ Signed [facility] Work Phone: [phone]) 282-645306-21-2025 History and physical note [facility] Medical Records Department [address] [place] [address] H&P Exam - Hospitalist 03/24/25 [id number] MR#: [id number] Acct: [id number] Name: BRISSA STEELE Rep #:[id number] : 1970 54 From: Jason Correa DO PCP: Dr. Tequila Renee MD Status:ADM IN Location: [place] [address] HPI - General General Date of Admission: 03/25/25 Date of Service: 03/24/25 Chief Complaint: LGIB with Nausea, Vomiting and Fever. HPI Narrative BRISSA STEELE, is a 54 F with a past medical history of obesity; with BMI of 37.2 this admission onContrave, history of Right parotid cancer; s/p parotidectomy, history of Right trigeminal neuralgia; on gabapentin, history of laparoscopic BSO; on estradiol patch, GERD; on lansoprazole and OA; with historyof Right knee arthroscopy and back pain radiating into legs on prn naproxen who presents to [facility] ER complaining of Lower GI Bleed, nausea,vomiting and Fever. Ms. Steelereports her symptoms began approximately one day prior to admission the abrupt-onset of LGIB with nausea and vomiting with bilious emesis. She states she has been passing BRBPR with associated achingpain that is made worse with standing with radiation and is also radiating into her abdomen and back. She also admits to intermittent chills and sweats with patient spiking a temperature to 100.6 degrees Fahrenheit while in ER. She denies related hematemesis, coffee-ground emesis, chest pain, SOB, headache or rash. In the ER she was noted to have a CT scan of the abdomen and pelvis positive for Colitis with wall thickening of the Left colon with infiltration ofthe adjacent fat, with no evidence of abscess with corresponding laboratory evidence of Leukocytosis of 15.1K present on admission complicated by LGIB with BRBPR and Fever with Hypotension of 91/47 mmHg concerning for possible Sepsisand she was then admitted to the PCU for ongoing care for treatment under the Sepsis protocol for astay that is expected to extend beyond 2 midnights. [facility] Medical History (Updated 03/25/25 @ 01:18 by Isis Olivier) Chronic pain Pain Nausea Epigastric pain Wears glasses Cancer [...] #30 tabs multivitamin 1 cap PO DAILY suppleme 01/0410/23/24 History estradiol 14 mcg/24 hr weekly 1 patch transdermal QWEE K #4 ea 03/15/24 10/24/24 Rx transdermal patch lansoprazole 30 mg capsule,delayed 30 mg PO DAILY #90 caps 11/11/24 Unknown Rx release naltrexone 8 mg-bupropion 90 mg 2 tab PO BID 12 weeks #336 tabs 11/11/24 Unknown Rx tablet,extended release (Contrave) pregabalin 200 mg capsule (Lyrica) 150 mg PO BID pain 11/11/24 Unknown History ciprofloxacin HCl 500 mg tablet 500 mg PO BID #20 TABL ETS 03/24/25 Unknown Rx fluconazole 150 mg tablet 150 mg PO DAILY 1 dose #1 TA B 03/24/25 Unknown Rx metronidazole 500 mg tablet 500 mg PO Q6H #40 tabs Unknown Rx Allergy/AdvReac Type Severity Reaction Status Date / Time morphine (From Duramorph AdvReac Vomiting Verified 03/24/25 16:10 (PF)) Family History Mother Heart disease Hypertension [...] safe at home: Yes additional social history: Vkpmicn-Iqjk-Rtszhyh Comfort Control 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 Eyes: Patient denies changes in vision or discharge from eyes. ENT: Patient denies runny nose, sore throat or ear pain. Resp: Patient denies SOB or cough. CV: Patient denies chest pain, palpitations, heart racing or LE edema. GI: Patient admits to LGIB with BRBPR and nausea with vomiting productive of bilious emesis as per HPI. : Patient denies dysuria or hematuria. MSK: Patient denies arthralgias or myalgias. Skin: Patient denies rash, abscess, wounds or jaundice. Psych: Patient denies symptoms of uncontrolled depression or anxiety. Neuro: Patient denies headache, paresthesias or focal neurologic deficits. Allergy: Patient denies lip swelling, tongue swelling or urticaria. Hematology: Patient admits to IB with BRBPR. Endocrinology: Patient denies polyuria, polydipsia, polyphagia or heat/cold intolerance. 14 point ROS otherwise negative except for positives noted above in HPI. Vital Signs Vital Signs Vital Signs: 03/24/25 16:04 03/24/25 16:47 03/24/25 17:10 Temperature 96.8 F L 98.8 F 98.3 F Temperature Source Temporal Oral Oral Pulse Rate 98 93 84 Respiratory Rate 22 H 20 H 16 Blood Pressure 121/85 H 133/68 H 116/67 Blood Pressure Mean 97 89 83 Pulse Ox 100 94 99 Oxygen Delivery Method Room Air Room Air Room Air 03/24/25 18:00 03/24/25 20:00 03/24/25 22:11 Temperature 98.1 F 100.2 F H Temperature Source Oral Oral Pulse Rate 84 96 115 H Respiratory Rate 16 16 16 Blood Pressure 122/79 H 108/54 L 93/50 L Blood Pressure Mean 93 72 64 Pulse Ox 100 98 95 Oxygen Delivery Method Room Air Room Air Room Air 03/24/25 22:37 03/24/25 22:52 03/24/25 22:56 Temperature Temperature Source Pulse Rate 97 95 99 Respiratory Rate 15 16 16 Blood Pressure 99/49 L 91/47 L 91/47 L Blood Pressure Mean 65 61 61 Pulse Ox 95 95 98 Oxygen Delivery Method Room Air Room Air 03/24/25 22:57 03/24/25 23:32 Temperature 100.6 F H 100.6 F H Temperature Source Oral Pulse Rate 96 95 Respiratory Rate 18 15 Blood Pressure 91/47 L 98/48 L Blood Pressure Mean 61 64 Pulse Ox 95 93 Oxygen Delivery Method Room Air Weight Weight: 217 lb Body Mass Index (BMI) 37.2 Results Medical Records Data Attestation: I reviewed the patient's medical records Lab / Micro Data Attestation: I reviewed the patient's lab results. 03/24/25 16:57 03/24/25 16:57 Labs: Laboratory Results - last 24 hr 03/24/25 16:57: WBC 15.1 H, RBC 4.86, Hgb 14.8, Hct 43.2, MCV 88.9, MCH 30.5, MCHC 34.3, RDW Std Deviation 42.4, RDW Coeff of Valente 13.0, Plt Count 251, MPV 11.6, Immature Gran % (Auto) 0.500, Neut % (Auto) 89.3 H, Lymph % (Auto) 6.7 L, [place] % (Auto) 3.4, Eos % (Auto) 0.0, Baso % (Auto) 0.1, AbsoluteNeuts (auto) 13.5 H, Absolute Lymphs (auto) 1.01, Nucleated RBC % 0, Sodium 142, Potassium 3.7, Chloride 105, Carbon Dioxide 23.2, Anion Gap 14, BUN 11, Creatinine 0.74, Estim Creat Clear Calc 101.35, Est GFR (MDRD) Non-Af 98, BUN/Creatinine Ratio 15.0, Glucose 110 H, Calcium 10.1, Total Bilirubin 0.47, AST 21, ALT 18, Alkaline Phosphatase 106 H, Total Protein 7.3, Albumin 4.5, Globulin 2.8, Album in/Globulin Ratio 1.6, Lipase 15 03/24/25 19:47: Urine Color Straw, Urine Clarity Clear, Urine pH 8.0, Ur Specific [place] 1.010, Urine Protein 15 H, Urine Glucose (UA) Normal, Urine Ketones Negative, Urine Occult Blood 50 H, Urine Nitrite Negative, Urine Bilirubin Negative, Urine Urobilinogen Normal, Ur Leukocyte Esterase Negative, Urine RBC 0-5 SEEN, Urine WBC 0-5 SEEN, Ur Squamous Epith Cells 0 SEEN, Urine Bacteria RARE, Urine Mucus 0 SEEN 03/24/25 23:12: PT 15.0 H, INR 1.2, APTT 32.9 Imaging Radiology Impression Abdomen/Pelvis CT 03/24/25 17:08 IMPRESSION: Colitis on the left. No obstruction. Lung bases are clear Reading Location: [facility] Assessment & Plan Assessment/Plan (1) Colitis: (2) Sepsis: QUALIFIERS: Sepsis acute organ dysfunction status: without acute organ dysfunction Sepsis type: sepsis due to unspecified organism Qualified Code(s): A41.9 - Sepsis, unspecified organism (3) Fever: QUALIFIERS: Fever type: unspecified Qualified Code(s): R50.9 - Fever, unspecified (4) Leukocytosis: QUALIFIERS: Leukocytosis type: unspecified Qualified Code(s): D72.829 - Elevated white blood cell count, unspecified (5) Hypotension: QUALIFIERS: Hypotension type: unspecified hypotension type Qualified Code(s): I95.9 - Hypotension, unspecified (6) LGI bleed: (7) Nausea and vomiting: QUALIFIERS: Vomiting type: bilious vomiting Qualified Code(s): R11.14 - Bilious vomiting (8) Obesity (BMI 30-39.9): PLAN: Plan 1. CT scan of the abdomen and pelvis positive for Colitis with wall thickening of the Left colon with infiltration of the adjacent fat, with no evidence of abscess with corresponding laboratory evidence of Leukocytosis of 15.1K, Fever to ~100.6 degrees Fahrenheit and present on admission and Hypotension of 91/47 mmHg concerning for possible Sepsis - Admit to PCU for treatment under the Sepsis protocol. Continue empiric IV ciprofloxacin and IV metronidazole begun in the ER and await culture and sensitivity data. Keep NPO and give pantoprazole 40 mg IV daily for GI prophylaxis. Give acetaminophen [place] prn for [id number] (level 1-5/10) pain or fever. Give IV morphine prn for severe (level 6-10/10) pain. 2. LGIB with BRBPR complicating #1 - Keep NPO for now. Type & Screen blood andtransfuse for hemoglobin < 7g dL. Case Manager Specialist on-call contacted by ER physician with formal consultation pending in the AM and appreciated in advance. 3. Nausea and Vomiting with bilious emesis complicating #1 & #2 in the setting of previously known GERD; on lansoprazole - We will give IV ondansetron prn fornausea and vomiting. Give promethazine IM prn for breakthrough nausea. Maintain PPI as outlined in #1. 4. Obesity; with BMI of 37.2 this admission on Contrave - Weight loss will be recommended. Check TSH. Restart contrave after GI evaluation is completed. This complicates her case and may hamper recovery. 5. History of Right parotid cancer; s/p parotidectomy - Noted. 6. History of Right trigeminal neuralgia; on gabapentin - Restart gabapentin when patient cleared for oral intake by GI. 7. History of laparoscopic BSO; on estradiol patch - Stable. 8. OA; with history of Right knee arthroscopy and back pain radiating into legson prn naproxen - Hold naproxen in light of #1. We will give acetaminophen prn according to scale outlined in #1. 9. DVT prophylaxis - SCD's only in light of #2. Total time: Approximately (but not less than) 75 minutes. Sepsis Attestation Sepsis Alert: Yes Sepsis Attestation: Sepsis Ruled Out Date exam was performed: 03/25/25 Time exam was performed: 00:30 Possible Source of Sepsis: GI tract/intra-abdominal Sepsis Organ Dysfunction Criteria Present: SBP < 90 mmHg or MAP < 65 mmHg and SBP decrease ofmore than 40 mmHg Fluid Resuscitation Fluid resuscitation indicated?: Yes Fluid Resuscitation ordered: 30 ml/kg fluid bolus ordered Amount of fluid ordered: 2 Sepsis Note Date exam was performed: 03/25/25 Time exam was performed: 04:00 Sepsis Attestation: Sepsis re-evaluation was performed Response to fluids: Fluid responsive hypotension Charges/Coding Visit Charges Inpatient E&M: 88832 Init Hosp L3 03/25/25 0611 Cosigner Signature (if applicable): CC: Dr. Jason Watters DO; Dr. Tequila Renee MD~ Signed [facility]06-21-2025 Discharge summary Author Bry Toribio [facility] Note Date/Time March 24, 2025 11:3 3pm [facility] Medical Records Department [address] [place] [address] Emergency Department Summary 03/24/25 MR#: [id number] Acct: [id number] Name: BRISSA STEELE Rep #:[id number] : 1970 54 From: Bry Donato PCP: Dr. Tequila Renee MD Status:REG ER Location: ED HPI History of Present Illness Chief Complaint: GI Bleed Informant: patient Onset/Context/Timing Onset: Yesterday Context: Gradual Onset Quality: Aching Location: Abdomen and back Worsened by: Standing upright Relieved by: Nothing Narrative Narrative: Patient presents with nausea, vomiting, diarrhea, and rectal bleeding that beganyesterday. Patient states she was passing red blood from her rectum. Patient states her pain is worse with standing upright. Patient describes her pain as aching. Patient states her pain is mainly over the abdomen and into her back. Patient denies any hematemesis or coffee-ground emesis. Patient admits to some chills and sweats. Patient denies any chest pain or shortness of breath. [facility] Medical History Pain Nausea Epigastric pain [...] 150 mg PO DAILY 04/28 Unknown History ciprofloxacin HCl 500 mg tablet 500 mg PO BID #20 TABL ETS 03/24/25 Unknown Rx fluconazole 150 mg tablet 150 mg PO DAILY 1 dose #1 TA B 03/24/25 Unknown Rx metronidazole 500 mg tablet 500 mg PO Q6H #40 tabs Unknown Rx Allergy/AdvReac Type Severity Reaction Status Date / Time morphine (From Duramorph AdvReac Vomiting Verified 03/24/25 16:10 (PF)) Family History Mother Heart disease Hypertension [...] safe at home: Yes additional social history: Zbybecm-[place]ua-[place] Comfort Control 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 [facility] ROS ED Constitutional Constitutional ED: Reports chills and sweats; Denies fever(s) Eyes Eyes: Denies blurry vision or change in vision ENT ENT ED: Denies rhinorrhea or sore throat Cardiovascular Cardiovascular: Denies chest pain or palpitations Respiratory/Chest Respiratory/Chest: Denies cough or dyspnea Gastrointestinal Gastrointestinal: Reports abdominal pain, diarrhea, nausea and vomiting Genitourinary Genitourinary ED: Denies dysuria or hematuria Musculoskeletal Musculoskeletal: Reports back pain; Denies neck pain Integumentary Denies abscess or rash Neurologic Neurologic: Denies headache(s) or weakness Allergic/Immunologic Allergic/Immunologic ED: Denies mouth swelling or urticaria EXAM Physical Exam Const Vital Signs: 03/24/25 16:04 03/24/25 16:47 03/24/25 17:10 Temperature 96.8 F L 98.8 F 98.3 F Temperature Source Temporal Oral Oral Pulse Rate 98 93 84 Respiratory Rate 22 H 20 H 16 Blood Pressure 121/85 H 133/68 H 116/67 Blood Pressure Mean 97 89 83 Pulse Ox 100 94 99 Oxygen Delivery Method Room Air Room Air Room Air 03/24/25 18:00 03/24/25 20:00 03/24/25 22:11 Temperature 98.1 F 100.2 F H Temperature Source Oral Oral Pulse Rate 84 96 115 H Respiratory Rate 16 16 16 Blood Pressure 122/79 H 108/54 L 93/50 L Blood Pressure Mean 93 72 64 Pulse Ox 100 98 95 Oxygen Delivery Method Room Air Room Air Room Air 03/24/25 22:37 03/24/25 22:52 03/24/25 22:56 Temperature Temperature Source Pulse Rate 97 95 99 Respiratory Rate 15 16 16 Blood Pressure 99/49 L 91/47 L 91/47 L Blood Pressure Mean 65 61 61 Pulse Ox 95 95 98 Oxygen Delivery Method Room Air Room Air 03/24/25 22:57 Temperature 100.6 F H Temperature Source Oral Pulse Rate 96 Respiratory Rate 18 Blood Pressure 91/47 L Blood Pressure Mean 61 Pulse Ox 95 Oxygen Delivery Method Room Air Positive well nourished and well developed Constitutional Narrative: BMI is 37.2. General Appearance ED: well developed and NAD HEENT Reports moist mucous membranes Neck supple and no JVD Resp normal respiratory effort and clear to auscultation bilaterally Cardio regular rate and regular rhythm GI non-distended Palpation: soft and tender epigastric, LLQ, RLQ, LUQ, RUQ, periumbilical and suprapubic; Negative for guarding or rebound tenderness present Neuro oriented x3, CN's II-XII intact bilaterally and no sensory deficits noted Sensorium / Orientation: alert Motor Exam: strength 5/5 throughout Psych mental status grossly normal Sepsis Attestation Sepsis Alert: Yes Possible Source of Sepsis: GI tract/intra-abdominal Sepsis Organ Dysfunction Criteria Present: SBP < 90 mmHg or MAP < 65 mmHg Fluid Resuscitation Fluid resuscitation indicated?: Yes Fluid Resuscitation ordered: 30 ml/kg fluid bolus ordered MDM MDM MDM Narrative Medical decision making narrative: Differential diagnosis includes diverticulitis, colitis, bowel obstruction, perforation, coagulopathy, upper gastrointestinal bleeding, urinary tract infection, and anemia. CBC will be obtained to assess for leukocytosis and anemia. Comprehensive metabolic profile will be obtained to assess for hepatic function, renal function, and electrolyte abnormality. Urinalysis will be obtained to assess for urinary tract infection. Lipase will be obtained to assess for pancreatitis. CT scan of the abdomen and pelvis will be obtained to assess for bowel obstruction, perforation, and diverticulitis. History & Record Review Additional record(s) reviewed:: Prior labs Lab Data Attestation: I reviewed the patient's lab results. Lab results narrative: CBC was reviewed. There is a mild leukocytosis of 15.9. Hemoglobin was stable at 14.8 and hematocrit is 43.2. Comprehensive metabolic profile was reviewed and was essentially within normal limits. Lipase was reviewed and was normal at15. Labs: Laboratory Results - last 24 hr 03/24/25 03/24/25 16:57 19:47 WBC 15.1 H RBC 4.86 Hgb 14.8 Hct 43.2 MCV 88.9 MCH 30.5 MCHC 34.3 RDW Std Deviation 42.4 RDW Coeff of Valente 13.0 Plt Count 251 MPV 11.6 Immature Gran % (Auto) 0.500 Neut % (Auto) 89.3 H Lymph % (Auto) 6.7 L [place] % (Auto) 3.4 Eos % (Auto) 0.0 Baso % (Auto) 0.1 Absolute Neuts (auto) 13.5 H Absolute Lymphs (auto) 1.01 Nucleated RBC % 0 Sodium 142 Potassium 3.7 Chloride 105 Carbon Dioxide 23.2 Anion Gap 14 BUN 11 Creatinine 0.74 Estim Creat Clear Calc 101.35 Est GFR (MDRD) Non-Af 98 BUN/Creatinine Ratio 15.0 Glucose 110 H Calcium 10.1 Total Bilirubin 0.47 AST 21 ALT 18 Alkaline Phosphatase 106 H Total Protein 7.3 Albumin 4.5 Globulin 2.8 Albumin/Globulin Ratio 1.6 Lipase 15 Urine Color Straw Urine Clarity Clear Urine pH 8.0 Ur Specific [place] 1.010 Urine Protein 15 H Urine Glucose (UA) Normal Urine Ketones Negative Urine Occult Blood 50 H Urine Nitrite Negative Urine Bilirubin Negative Urine Urobilinogen Normal Ur Leukocyte Esterase Negative Urine RBC 0-5 SEEN Urine WBC 0-5 SEEN Ur Squamous Epith Cells 0 SEEN Urine Bacteria RARE Urine Mucus 0 SEEN Radiography Diagnostic Testing: Clinical Impression(s) from Imaging Studies Abdomen/Pelvis CT 03/24/25 17:08 IMPRESSION: Colitis on the left. No obstruction. Lung bases are clear [facility] and pelvis was obtained. There is colitis of the left colon. There is no evidence of obstruction. There is no perforation noted. This was interpreted by the radiologist and was also independently reviewed by myself. Management Discussion w/another healthcare provider: Hospitalist (Dr. Malagon) and Electro Optics Engineer (Dr. Manriquez) Additional Tests and Interventions Additional Tests or Interventions: Serum lactate was added to assess for sepsis. Blood cultures were added to assess for sepsis. PT with INR and PTT were added on to assess for coagulopathy. Stool cultures and C. difficile were obtained to assess for bacterial infection and C. difficile colitis. Type and screen was obtained to assess for anemia. Treatment and Re-Evaluation :: Patient was given IV fluids. Patient was given Zofran and Bentyl. Patient was advised of her findings. Patient was given dose of Cipro and Flagyl here. Patient is given prescriptions for Cipro and Flagyl. Because of her naltrexone and bupropion, opiate analgesics are not indicated. Patient was instructed to take Tylenol as needed for pain. Patient was instructed to continue her lansoprazole. Patient was instructed to follow-up with her primary care physician in 5 to 7 days. Patient was also instructed to follow-up with Dr. Manriquez as well. Patient understood and was agreeable with the plan. All questions were answered. Prior to patient being discharged, she developed a fever of 100.2. Patient's blood pressure also dropped to 93/50. Patient was given a repeat bolus of normal saline and 1000 mg of Tylenol. Patient's temperature went up to 100.6. Patient was ordered serum lactate and blood cultures. PT with INR and PTT were also ordered. Case was discussed with Dr. Manriquez. He recommended obtaining stool cultures and C. difficile. This was ordered. Patient has a Phoenix scoreof 12. Dr. Manriquez is agreeable with admission. Patient is agreeable with admission. Case was discussed with the hospitalist. He will admit the patient to his service. Patient and family understood and were agreeable with the plan. All questions were answered. Discharge Plan Dx/Rx/DC Orders Clinical Impression: Colitis, Lower gastrointestinal bleeding, Fever Disposition Disposition: Acute Care Hospital [facility] What to do if you have Problems For any increased pain, shortness of breath, bleeding, nausea or vomiting, chestpain, or any unexpected problems, contact your Primary Care Provider. Call [facility] ([phone]) or report to the closest Emergency Room. Call 911 if necessary. 03/24/25 4939 <Electronically signed by Bry Toribio DO> Cosigner Signature (if applicable): CC: Dr. Tequila Renee MD ~ Signed [facility] Work Phone: 1(126) 655-495206-20-2025 Discharge summary [facility] Medical Records Department [address] [place] [address] Emergency Department Summary 03/24/25 MR#: [id number] Acct: [id number] Name: BRISSA STEELE Rep #:[id number] : 1970 54 From: Bry Donato PCP: Dr. Tequila Renee MD Status:REG ER Location: ED HPI History of Present Illness Chief Complaint: GI Bleed Informant: patient Onset/Context/Timing Onset: Yesterday Context: Gradual Onset Quality: Aching Location: Abdomen and back Worsened by: Standing upright Relieved by: Nothing Narrative Narrative: Patient presents with nausea, vomiting, diarrhea, and rectal bleeding that beganyesterday. Patient states she was passing red blood from her rectum. Patient states her pain is worse with standing upright. Patient describes her pain as aching. Patient states her pain is mainly over the abdomen and into her back. Patient denies any hematemesis or coffee-ground emesis. Patient admits to some chills and sweats. Patient denies any chest pain or shortness of breath. [facility] Medical History Pain Nausea Epigastric pain [...] 150 mg PO DAILY 04/28 Unknown History ciprofloxacin HCl 500 mg tablet 500 mg PO BID #20 TABL ETS 03/24/25 Unknown Rx fluconazole 150 mg tablet 150 mg PO DAILY 1 dose #1 TA B 03/24/25 Unknown Rx metronidazole 500 mg tablet 500 mg PO Q6H #40 tabs Unknown Rx Allergy/AdvReac Type Severity Reaction Status Date / Time morphine (From Duramorph AdvReac Vomiting Verified 03/24/25 16:10 (PF)) Family History Mother Heart disease Hypertension [...] safe at home: Yes additional social history: Zlsuaol-Qfod-Aruwsaw Comfort Control 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 [facility] ROS ROS ED Constitutional Constitutional ED: Reports chills and sweats; Denies fever(s) Eyes Eyes: Denies blurry vision or change in vision ENT ENT ED: Denies rhinorrhea or sore throat Cardiovascular Cardiovascular: Denies chest pain or palpitations Respiratory/Chest Respiratory/Chest: Denies cough or dyspnea Gastrointestinal Gastrointestinal: Reports abdominal pain, diarrhea, nausea and vomiting Genitourinary Genitourinary ED: Denies dysuria or hematuria Musculoskeletal Musculoskeletal: Reports back pain; Denies neck pain Integumentary Denies abscess or rash Neurologic Neurologic: Denies headache(s) or weakness Allergic/Immunologic Allergic/Immunologic ED: Denies mouth swelling or urticaria EXAM Physical Exam Const Vital Signs: 03/24/25 16:04 03/24/25 16:47 03/24/25 17:10 Temperature 96.8 F L 98.8 F 98.3 F Temperature Source Temporal Oral Oral Pulse Rate 98 93 84 Respiratory Rate 22 H 20 H 16 Blood Pressure 121/85 H 133/68 H 116/67 Blood Pressure Mean 97 89 83 Pulse Ox 100 94 99 Oxygen Delivery Method Room Air Room Air Room Air 03/24/25 18:00 03/24/25 20:00 03/24/25 22:11 Temperature 98.1 F 100.2 F H Temperature Source Oral Oral Pulse Rate 84 96 115 H Respiratory Rate 16 16 16 Blood Pressure 122/79 H 108/54 L 93/50 L Blood Pressure Mean 93 72 64 Pulse Ox 100 98 95 Oxygen Delivery Method Room Air Room Air Room Air 03/24/25 22:37 03/24/25 22:52 03/24/25 22:56 Temperature Temperature Source Pulse Rate 97 95 99 Respiratory Rate 15 16 16 Blood Pressure 99/49 L 91/47 L 91/47 L Blood Pressure Mean 65 61 61 Pulse Ox 95 95 98 Oxygen Delivery Method Room Air Room Air 03/24/25 22:57 Temperature 100.6 F H Temperature Source Oral Pulse Rate 96 Respiratory Rate 18 Blood Pressure 91/47 L Blood Pressure Mean 61 Pulse Ox 95 Oxygen Delivery Method Room Air Positive well nourished and well developed Constitutional Narrative: BMI is 37.2. General Appearance ED: well developed and NAD HEENT Reports moist mucous membranes Neck supple and no JVD Resp normal respiratory effort and clear to auscultation bilaterally Cardio regular rate and regular rhythm GI non-distended Palpation: soft and tender epigastric, LLQ, RLQ, LUQ, RUQ, periumbilical and suprapubic; Negative for guarding or rebound tenderness present Neuro oriented x3, CN's II-XII intact bilaterally and no sensory deficits noted Sensorium / Orientation: alert Motor Exam: strength 5/5 throughout Psych mental status grossly normal Sepsis Attestation Sepsis Alert: Yes Possible Source of Sepsis: GI tract/intra-abdominal Sepsis Organ Dysfunction Criteria Present: SBP < 90 mmHg or MAP < 65 mmHg Fluid Resuscitation Fluid resuscitation indicated?: Yes Fluid Resuscitation ordered: 30 ml/kg fluid bolus ordered MDM MDM MDM Narrative Medical decision making narrative: Differential diagnosis includes diverticulitis, colitis, bowel obstruction, perforation, coagulopathy, upper gastrointestinal bleeding, urinary tract infection, and anemia. CBC will be obtained to assess for leukocytosis and anemia. Comprehensive metabolic profile will be obtained to assess for hepatic function, renal function, and electrolyte abnormality. Urinalysis will be obtained to assess for urinary tract infection. Lipase will be obtained to assess for pancreatitis. CT scan of the abdomen and pelvis will be obtained to assess for bowel obstruction, perforation, and diverticulitis. History & Record Review Additional record(s) reviewed:: Prior labs Lab Data Attestation: I reviewed the patient's lab results. Lab results narrative: CBC was reviewed. There is a mild leukocytosis of 15.9. Hemoglobin was stable at 14.8 and hematocrit is 43.2. Comprehensive metabolic profile was reviewed and was essentially within normal limits. Lipase was reviewed and was normal at15. Labs: Laboratory Results - last 24 hr 03/24/25 03/24/25 16:57 19:47 WBC 15.1 H RBC 4.86 Hgb 14.8 Hct 43.2 MCV 88.9 MCH 30.5 MCHC 34.3 RDW Std Deviation 42.4 RDW Coeff of Valente 13.0 Plt Count 251 MPV 11.6 Immature Gran % (Auto) 0.500 Neut % (Auto) 89.3 H Lymph % (Auto) 6.7 L [place] % (Auto) 3.4 Eos % (Auto) 0.0 Baso % (Auto) 0.1 Absolute Neuts (auto) 13.5 H Absolute Lymphs (auto) 1.01 Nucleated RBC % 0 Sodium 142 Potassium 3.7 Chloride 105 Carbon Dioxide 23.2 Anion Gap 14 BUN 11 Creatinine 0.74 Estim Creat Clear Calc 101.35 Est GFR (MDRD) Non-Af 98 BUN/Creatinine Ratio 15.0 Glucose 110 H Calcium 10.1 Total Bilirubin 0.47 AST 21 ALT 18 Alkaline Phosphatase 106 H Total Protein 7.3 Albumin 4.5 Globulin 2.8 Albumin/Globulin Ratio 1.6 Lipase 15 Urine Color Straw Urine Clarity Clear Urine pH 8.0 Ur Specific [place] 1.010 Urine Protein 15 H Urine Glucose (UA) Normal Urine Ketones Negative Urine Occult Blood 50 H Urine Nitrite Negative Urine Bilirubin Negative Urine Urobilinogen Normal Ur Leukocyte Esterase Negative Urine RBC 0-5 SEEN Urine WBC 0-5 SEEN Ur Squamous Epith Cells 0 SEEN Urine Bacteria RARE Urine Mucus 0 SEEN Radiography Diagnostic Testing: Clinical Impression(s) from Imaging Studies Abdomen/Pelvis CT 03/24/25 17:08 IMPRESSION: Colitis on the left. No obstruction. Lung bases are clear Reading Location: [facility] CT scan of the abdomen and pelvis was obtained. There is colitis of the left colon. There is no evidence of obstruction. There is no perforation noted. This was interpreted by the radiologist and wasalso independently reviewed by myself. Management Discussion w/another healthcare provider: Hospitalist (Dr. Malagon) and Electro Optics Engineer (Dr. Manriquez) Additional Tests and Interventions Additional Tests or Interventions: Serum lactate was added to assess for sepsis. Blood cultures were added to assess for sepsis. PT with INR and PTT were added on to assess for coagulopathy. Stool cultures and C. difficile were obtained to assess for bacterial infection and C. difficile colitis. Type and screen was obtained to assess for anemia. Treatment and Re-Evaluation :: Patient was given IV fluids. Patient was given Zofran and Bentyl. Patient was advised of her findings. Patient was given dose of Cipro and Flagyl here. Patient is given prescriptions for Cipro and Flagyl. Because of her naltrexone and bupropion, opiate analgesics are not indicated. Patient was instructed to take Tylenol as needed for pain. Patient was instructed to continue her lansoprazole. Patient was instructed to follow-up with her primary care physician in 5 to 7 days. Patient was also instructed to follow-up with Dr. Manriquez as well. Patient understood and was agreeable with the plan. All questions were answered. Prior to patient being discharged, she developed a fever of 100.2. Patient's blood pressure also dropped to 93/50. Patient was given a repeat bolus of normal saline and 1000 mg of Tylenol. Patient's temperature went up to 100.6. Patient was ordered serum lactate and blood cultures. PT with INR and PTT were also ordered. Case was discussed with Dr. Manriquez. He recommended obtaining stool cultures and C. difficile. This was ordered. Patient has a Phoenix scoreof 12. Dr. Manriquez is agreeable with admission. Patient is agreeable with admission. Case was discussed with the hospitalist. He will admitthe patient to his service. Patient and family understood and were agreeable with the plan. All questions were answered. Discharge Plan Dx/Rx/DC Orders Clinical Impression: Colitis, Lower gastrointestinal bleeding, Fever Disposition Disposition: Acute Care Hospital [facility] What to do if you have Problems For any increased pain, shortness of breath, bleeding, nausea or vomiting, chestpain, or any unexpected problems, contact your Primary Care Provider. Call [facility] ([phone]) or report tothe closest Emergency Room. Call 911 if necessary. 03/24/25 4808 Cosigner Signature (if applicable): CC: Dr. Tequila Renee MD ~ Signed [facility]06-20-2025 Radiology Diagnostic study note [facility] Imaging Services [address] [place] [address] [id number] Abdomen/Pelvis W IV Cont ONLY MR#: [id number] Acct: [id number] Name: BRISSA STEELE Rep #: [id number] : 1970 F 54 From: Luther Morales MD PCP: Dr. Tequila Renee MD Status: REG ER Study:Abdomen/Pelvis W IV Cont ONLY Date of E xam: 03/24/25 Exam# [id number] Ordering Dr: Bry Toribio DO PROCEDURE: ABDOMEN/PELVIS W IV CONT ONLY 03/24/2025 REASON FOR EXAM: ABDOMINAL PAIN TECHNIQUE: ABDOMEN/PELVIS W IV CONT ONLY. Coronal and Sagittal reconstruction series were provided. CONTRAST: 96 cc Isovue 370 One or more dose reduction techniques were used (e.g., Automated exposure control, adjustment of the mA and/or kV according to patient size, use of iterative reconstruction technique. FINDINGS: There is no free-fluid. There is no free air. There is no bowel obstruction. Normal appearance of the liver and spleen. Normal appearance of the gallbladder. Normal pancreas. Normal adrenal glands. No renal calculi or hydronephrosis. There is wall thickening involving the left colon with infiltration of the adjacent fat. There is no abscess. CT/Abdomen/Pelvis W IV Cont ONLY IMPRESSION: Colitis on the left. No obstruction. Lung bases are clear [facility] CC: Dr. Bry Toribio DO; Dr. Tequila Renee MD ~ Real Property Appraiser: Signed [facility]06-20-2025 Discharge summary Author Bry Toribio [facility] Note Date/Time March 24, 2025 11:3 3pm [facility] Medical Records Department [address] [place] [address] Emergency Department Summary 03/24/25 MR#: [id number] Acct: [id number] Name: BRISSA STEELE Rep #:[id number] : 1970 54 From: Bry Donato PCP: Dr. Tequila Renee MD Status:REG ER Location: ED HPI History of Present Illness Chief Complaint: GI Bleed Informant: patient Onset/Context/Timing Onset: Yesterday Context: Gradual Onset Quality: Aching Location: Abdomen and back Worsened by: Standing upright Relieved by: Nothing Narrative Narrative: Patient presents with nausea, vomiting, diarrhea, and rectal bleeding that beganyesterday. Patient states she was passing red blood from her rectum. Patient states her pain is worse with standing upright. Patient describes her pain as aching. Patient states her pain is mainly over the abdomen and into her back. Patient denies any hematemesis or coffee-ground emesis. Patient admits to some chills and sweats. Patient denies any chest pain or shortness of breath. [facility] Medical History Pain Nausea Epigastric pain [...] 150 mg PO DAILY 04/28 Unknown History ciprofloxacin HCl 500 mg tablet 500 mg PO BID #20 TABL ETS 03/24/25 Unknown Rx fluconazole 150 mg tablet 150 mg PO DAILY 1 dose #1 TA B 03/24/25 Unknown Rx metronidazole 500 mg tablet 500 mg PO Q6H #40 tabs Unknown Rx Allergy/AdvReac Type Severity Reaction Status Date / Time morphine (From Duramorph AdvReac Vomiting Verified 03/24/25 16:10 (PF)) Family History Mother Heart disease Hypertension [...] safe at home: Yes additional social history: Warqxzx-Kdxq-Ruqhxee Comfort Control 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 [facility] ROS ROS ED Constitutional Constitutional ED: Reports chills and sweats; Denies fever(s) Eyes Eyes: Denies blurry vision or change in vision ENT ENT ED: Denies rhinorrhea or sore throat Cardiovascular Cardiovascular: Denies chest pain or palpitations Respiratory/Chest Respiratory/Chest: Denies cough or dyspnea Gastrointestinal Gastrointestinal: Reports abdominal pain, diarrhea, nausea and vomiting Genitourinary Genitourinary ED: Denies dysuria or hematuria Musculoskeletal Musculoskeletal: Reports back pain; Denies neck pain Integumentary Denies abscess or rash Neurologic Neurologic: Denies headache(s) or weakness Allergic/Immunologic Allergic/Immunologic ED: Denies mouth swelling or urticaria EXAM Physical Exam Const Vital Signs: 03/24/25 16:04 03/24/25 16:47 03/24/25 17:10 Temperature 96.8 F L 98.8 F 98.3 F Temperature Source Temporal Oral Oral Pulse Rate 98 93 84 Respiratory Rate 22 H 20 H 16 Blood Pressure 121/85 H 133/68 H 116/67 Blood Pressure Mean 97 89 83 Pulse Ox 100 94 99 Oxygen Delivery Method Room Air Room Air Room Air 03/24/25 18:00 03/24/25 20:00 03/24/25 22:11 Temperature 98.1 F 100.2 F H Temperature Source Oral Oral Pulse Rate 84 96 115 H Respiratory Rate 16 16 16 Blood Pressure 122/79 H 108/54 L 93/50 L Blood Pressure Mean 93 72 64 Pulse Ox 100 98 95 Oxygen Delivery Method Room Air Room Air Room Air 03/24/25 22:37 03/24/25 22:52 03/24/25 22:56 Temperature Temperature Source Pulse Rate 97 95 99 Respiratory Rate 15 16 16 Blood Pressure 99/49 L 91/47 L 91/47 L Blood Pressure Mean 65 61 61 Pulse Ox 95 95 98 Oxygen Delivery Method Room Air Room Air 03/24/25 22:57 Temperature 100.6 F H Temperature Source Oral Pulse Rate 96 Respiratory Rate 18 Blood Pressure 91/47 L Blood Pressure Mean 61 Pulse Ox 95 Oxygen Delivery Method Room Air Positive well nourished and well developed Constitutional Narrative: BMI is 37.2. General Appearance ED: well developed and NAD HEENT Reports moist mucous membranes Neck supple and no JVD Resp normal respiratory effort and clear to auscultation bilaterally Cardio regular rate and regular rhythm GI non-distended Palpation: soft and tender epigastric, LLQ, RLQ, LUQ, RUQ, periumbilical and suprapubic; Negative for guarding or rebound tenderness present Neuro oriented x3, CN's II-XII intact bilaterally and no sensory deficits noted Sensorium / Orientation: alert Motor Exam: strength 5/5 throughout Psych mental status grossly normal Sepsis Attestation Sepsis Alert: Yes Possible Source of Sepsis: GI tract/intra-abdominal Sepsis Organ Dysfunction Criteria Present: SBP < 90 mmHg or MAP < 65 mmHg Fluid Resuscitation Fluid resuscitation indicated?: Yes Fluid Resuscitation ordered: 30 ml/kg fluid bolus ordered MDM MDM MDM Narrative Medical decision making narrative: Differential diagnosis includes diverticulitis, colitis, bowel obstruction, perforation, coagulopathy, upper gastrointestinal bleeding, urinary tract infection, and anemia. CBC will be obtained to assess for leukocytosis and anemia. Comprehensive metabolic profile will be obtained to assess for hepatic function, renal function, and electrolyte abnormality. Urinalysis will be obtained to assess for urinary tract infection. Lipase will be obtained to assess for pancreatitis. CT scan of the abdomen and pelvis will be obtained to assess for bowel obstruction, perforation, and diverticulitis. History & Record Review Additional record(s) reviewed:: Prior labs Lab Data Attestation: I reviewed the patient's lab results. Lab results narrative: CBC was reviewed. There is a mild leukocytosis of 15.9. Hemoglobin was stable at 14.8 and hematocrit is 43.2. Comprehensive metabolic profile was reviewed and was essentially within normal limits. Lipase was reviewed and was normal at15. Labs: Laboratory Results - last 24 hr 03/24/25 03/24/25 16:57 19:47 WBC 15.1 H RBC 4.86 Hgb 14.8 Hct 43.2 MCV 88.9 MCH 30.5 MCHC 34.3 RDW Std Deviation 42.4 RDW Coeff of Valente 13.0 Plt Count 251 MPV 11.6 Immature Gran % (Auto) 0.500 Neut % (Auto) 89.3 H Lymph % (Auto) 6.7 L [place] % (Auto) 3.4 Eos % (Auto) 0.0 Baso % (Auto) 0.1 Absolute Neuts (auto) 13.5 H Absolute Lymphs (auto) 1.01 Nucleated RBC % 0 Sodium 142 Potassium 3.7 Chloride 105 Carbon Dioxide 23.2 Anion Gap 14 BUN 11 Creatinine 0.74 Estim Creat Clear Calc 101.35 Est GFR (MDRD) Non-Af 98 BUN/Creatinine Ratio 15.0 Glucose 110 H Calcium 10.1 Total Bilirubin 0.47 AST 21 ALT 18 Alkaline Phosphatase 106 H Total Protein 7.3 Albumin 4.5 Globulin 2.8 Albumin/Globulin Ratio 1.6 Lipase 15 Urine Color Straw Urine Clarity Clear Urine pH 8.0 Ur Specific [place] 1.010 Urine Protein 15 H Urine Glucose (UA) Normal Urine Ketones Negative Urine Occult Blood 50 H Urine Nitrite Negative Urine Bilirubin Negative Urine Urobilinogen Normal Ur Leukocyte Esterase Negative Urine RBC 0-5 SEEN Urine WBC 0-5 SEEN Ur Squamous Epith Cells 0 SEEN Urine Bacteria RARE Urine Mucus 0 SEEN Radiography Diagnostic Testing: Clinical Impression(s) from Imaging Studies Abdomen/Pelvis CT 03/24/25 17:08 IMPRESSION: Colitis on the left. No obstruction. Lung bases are clear Reading [facility] CT scan of the abdomen and pelvis was obtained. There is colitis of the left colon. There is no evidence of obstruction. There is no perforation noted. This was interpreted by the radiologist and was also independently reviewed by myself. Management Discussion w/another healthcare provider: Hospitalist (Dr. Malagon) and Electro Optics Engineer (Dr. Manriquez) Additional Tests and Interventions Additional Tests or Interventions: Serum lactate was added to assess for sepsis. Blood cultures were added to assess for sepsis. PT with INR and PTT were added on to assess for coagulopathy. Stool cultures and C. difficile were obtained to assess for bacterial infection and C. difficile colitis. Type and screen was obtained to assess for anemia. Treatment and Re-Evaluation :: Patient was given IV fluids. Patient was given Zofran and Bentyl. Patient was advised of her findings. Patient was given dose of Cipro and Flagyl here. Patient is given prescriptions for Cipro and Flagyl. Because of her naltrexone and bupropion, opiate analgesics are not indicated. Patient was instructed to take Tylenol as needed for pain. Patient was instructed to continue her lansoprazole. Patient was instructed to follow-up with her primary care physician in 5 to 7 days. Patient was also instructed to follow-up with Dr. Manriquez as well. Patient understood and was agreeable with the plan. All questions were answered. Prior to patient being discharged, she developed a fever of 100.2. Patient's blood pressure also dropped to 93/50. Patient was given a repeat bolus of normal saline and 1000 mg of Tylenol. Patient's temperature went up to 100.6. Patient was ordered serum lactate and blood cultures. PT with INR and PTT were also ordered. Case was discussed with Dr. Manriquez. He recommended obtaining stool cultures and C. difficile. This was ordered. Patient has a Phoenix scoreof 12. Dr. Manriquez is agreeable with admission. Patient is agreeable with admission. Case was discussed with the hospitalist. He will admit the patient to his service. Patient and family understood and were agreeable with the plan. All questions were answered. Discharge Plan Dx/Rx/DC Orders Clinical Impression: Colitis, Lower gastrointestinal bleeding, Fever Disposition Disposition: Acute Care Hospital [facility] What to do if you have Problems For any increased pain, shortness of breath, bleeding, nausea or vomiting, chestpain, or any unexpected problems, contact your Primary Care Provider. Call [facility] ([phone]) or report to the closest Emergency Room. Call 911 if necessary. 03/24/25 0967 <Electronically signed by Bry Toribio DO> Cosigner Signature (if applicable): CC: Dr. Tequila Renee MD ~ Signed [facility] Work Phone: 1(495) 273-378405-07-2025 Discharge summary Author Jerry Montes [facility] Note Date/Time February 08, 2025 8:41am [facility] Physical Therapy [facility] [address] [place] [address]. [address] [place] [id number] / REHABILITATION SERVICES DISCHARGE SUMMARY MR#: [id number] Acct: [id number] Name: BRISSA STEELE Rep #: [id number] : 1970 54 From: Cert. LEN Mendes, [facility] Referring Dr.: Dr. Philip Gerber MD Status: REG R Insurance: [facility] [employer] SELF PAY INSURANCE Discharge Summary D/C [...] please feel free to call me at [phone]. Thank you for the referral of thispatient. Sincerely, Jerry Montes PT, Giovanni HARRINGTON, OCS Balance/Gait/Functional tests Balance/Special Test Scores Oswestry Low Back Score: 28 <Electronically signed by Cert. LEN Echols PT, OCS> 02/08/25 0841 CC: Dr. Philip Gerber MD; Dr. Tequila Renee MD ~ JLA Signed [facility] Work Phone: 1(510) 510-936705-07-2025 Discharge summary [facility] [address] [place] [address] [address] [place] [address] / REHABILITATION SERVICES DISCHARGE SUMMARY MR#: [id number] Acct: [id number] Name: BRISSA STEELE Rep #: [id number] : 1970 54 From: Cert. LEN Mendes, OCS Referring Dr.: Dr. Philip Gerber MD Status: REG RCR Insurance: [facility] SELF PAY INSURANCE Discharge Summary D/C [...] please feel free to call me at [phone]. Thank you for the referral of thispatient. Sincerely, Jerry Montes, PT, Cert MDT, OCS Balance/Gait/Functional tests Balance/Special Test Scores Oswestry Low Back Score: 28 02/08/25 0841 CC: Dr. Philip Gerber MD; Dr. Tequila Renee MD ~ JLA Signed [facility]05-02-2025 History of Present illness Narrative* Rosalie Rey LPN - 02/03/2025 8:20 AM EDT Med check * Tequila Renee MD - 02/03/2025 8:20 AM EDT Subjective Brissa Steele is a 54 y.o. female who presents for Annual Exam. HPI Wellness visit. S/p hysterectomy bso, no indication for pap smear Had labs through work in November, reviewed,overall good results Due for mammogram,gets at [facility] Colon screening current Sees specialist for [...] mouth 3 times a day as needed (February causeseda). 30 tablet 0 Menostar 14 mcg/24 hr [...] to 44.9 in adult documented in this [facility] Work Phone: 1([phone]) 742-960904-29-2025 Evaluation note* Diagnosis Onset Date Resolution Status Admit Date Cystocele acute January 31 3:48pm Urinary incontinence acute Apri l 2024 3:48pm Cystocele acute February 08, 2025 12:51pm Urinary incontinence acute February 08, 2025 12:51pm [facility] Work Phone: 1(112) 239-418104-29-2025 Evaluation note* Diagnosis Onset Date Resolution Status Admit Date Cystocele acute January 31 3:48pm Urinary incontinence acute Apri l 2024 3:48pm Cystocele acute February 08, 2025 12:51pm Urinary incontinence acute February 08, 2025 12:51pm ABLA (acute blood loss anemia) acute March 25, 2025 12:30am Colitis acute March 25 12:30am Fever acute March 25 12:30am Hypotension acute March 25 12:30am Leukocytosis acute March 25, 2 025 12:30am LGI bleed acute March 25 12:30am Nausea and vomiting acute March 25, 2025 12:30am Obesity (BMI 30-39.9) acute Mar 12:30am Sepsis acute March 25 12:30am [facility] Work Phone: 1(364) 259-947204-29-2025 Evaluation note* Diagnosis Onset Date Resolution Status Admit Date Cystocele acute January 31 3:48pm Urinary incontinence acute Apri l 2024 3:48pm Cystocele acute February 08, 2025 12:51pm Urinary incontinence acute February 08, 2025 12:51pm ABLA (acute blood loss anemia) resol jose ramon March 25, 2025 12:30am Colitis resolved March 25 12:30am Fever resolved March 25 12:30am Hypotension resolved March 25 12:30am Leukocytosis resolved March 25, 2 025 12:30am LGI bleed resolved March 25 12:30am Nausea and vomiting resolved March 25, 2025 12:30am Sepsis resolved March 25 12:30am Obesity (BMI 30-39.9) inactive Mar 12:30am Lower gastrointestinal bleeding acut e April 17, 2025 10:50am [facility] Work Phone: 1(130) 510-535604-29-2025 Evaluation note* Diagnosis Onset Date Resolution Status Admit Date Cystocele acute January 31 3:48pm Urinary incontinence acute Apri l 2024 3:48pm Cystocele acute February 08, 2025 12:51pm Urinary incontinence acute February 08, 2025 12:51pm ABLA (acute blood loss anemia) resol jose ramon March 25, 2025 12:30am Colitis resolved March 25 12:30am Fever resolved March 25 12:30am Hypotension resolved March 25 12:30am Leukocytosis resolved March 25, 2 025 12:30am LGI bleed resolved March 25 12:30am Nausea and vomiting resolved March 25, 2025 12:30am Sepsis resolved March 25 12:30am Obesity (BMI 30-39.9) inactive Mar 12:30am 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 Ischemic colitis acute April 10:50am Lower gastrointestinal bleeding acut e April 17, 2025 10:50am Facet arthritis of lumbar region acu te April 28, 2025 7:59am Lumbar stenosis acute April 7:59am Scoliosis acute April 28 7:59am Synovial cyst of lumbar spine acute April 28, 2025 7:59am [facility] Work Phone: 1([phone]) 438-716304-29-2025 Evaluation note* Diagnosis Onset Date Resolution Status Admit Date Cystocele acute January 31 3:48pm Urinary incontinence acute Apri l 2024 3:48pm Cystocele acute February 08, 2025 12:51pm Urinary incontinence acute February 08, 2025 12:51pm ABLA (acute blood loss anemia) resol jose ramon March 25, 2025 12:30am Colitis resolved March 25 12:30am Fever resolved March 25 12:30am Hypotension resolved March 25 12:30am Leukocytosis resolved March 25, 2 025 12:30am LGI bleed resolved March 25 12:30am Nausea and vomiting resolved March 25, 2025 12:30am Sepsis resolved March 25 12:30am Obesity (BMI 30-39.9) inactive Mar 12:30am 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 Tequila Renee MD Status:REG SDC Y Race: C Location: [place] [address]- Anesthesia Postop Eval I Sum Postop Eval Completion status Anesthesia document: Postop Eval 1 completed: Yes Anesthesia Postop Eval I Summary Anesthesia Postop Eval I Summary: Anesthesia Postop Eval I: Assessment Summary Airway patent Yes 01/09/25 08:17 PARTS [email or web address] Spontaneous unlabored Yes 01/09/25 08:17 PARTS [email or web address].CSIR respirations Mental status nausea No 01/09/25 08:17 PARTS [email or web address].CSIR Vomiting No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 Leukocytosis March 25, 2025 12:3 0am LGI bleed March 25, 2025 12:3 0am Nausea and vomiting March 25, 2025 12:3 0am Obesity (BMI 30-39.9) March 25, 2025 12 :30am Sepsis March 25, 2025 12:3 0am Chief Complaint Admit Date BACK PAIN PT HAS RX January 02, 2025 12: 00pm Radiculopathy, lumbosacral region January 06, 2025 10:34am Pelvic Floor Dropped January 31, 2025 3: 48pm Pessary Insert *per February 08, 2025 12: 51pm COLITIS, LGIB WITH BRBPR, N/V AND POSSIB LE SEPSIS March 25, 2025 12:30am COLITIS, LGIB WITH BRBPR, N/V AND POSSIB LE SEPSIS March 25, 2025 8:20am COLITIS, LGIB WITH BRBPR, N/V AND POSSIB LE SEPSIS March 25, 2025 2:22pm COLITIS, LGIB WITH BRBPR, N/V AND POSSIB LE SEPSIS March 26, 2025 9:16am COLITIS, LGIB WITH BRBPR, N/V AND POSSIB LE SEPSIS March 27, 2025 7:51am COLITIS, LGIB WITH BRBPR, N/V AND POSSIB LE SEPSIS March 28, 2025 2:00pm Hospital FU April 17, 2025 10:5 0am Reason for Visit Admit Date Cystocele January 31, 2025 3:4 8pm Urinary incontinence January 31, 2025 3: 48pm Cystocele February 08, 2025 12:51p m Urinary incontinence February 08, 2025 12:51 pm ABLA (acute blood loss anemia) March 12:30am Colitis March 25, 2025 12:3 0am Fever March 25, 2025 12:3 0am Hypotension March 25, 2025 12:3 0am Leukocytosis March 25, 2025 12:3 0am LGI bleed March 25, 2025 12:3 0am Nausea and vomiting March 25, 2025 12:3 0am Sepsis March 25, 2025 12:3 0am Obesity (BMI 30-39.9) March 25, 2025 12 :30am Lower gastrointestinal bleeding April 10:50am Chief Complaint Admit Date BACK PAIN PT HAS RX January 02, 2025 12: 00pm Radiculopathy, lumbosacral region January 06, 2025 10:34am Pelvic Floor Dropped January 31, 2025 3: 48pm Pessary Insert *per February 08, 2025 12: 51pm COLITIS, LGIB WITH BRBPR, N/V AND POSSIB LE SEPSIS March 25, 2025 12:30am COLITIS, LGIB WITH BRBPR, N/V AND POSSIB LE SEPSIS March 25, 2025 8:20am COLITIS, LGIB WITH BRBPR, N/V AND POSSIB LE SEPSIS March 25, 2025 2:22pm COLITIS, LGIB WITH BRBPR, N/V AND POSSIB LE SEPSIS March 26, 2025 9:16am COLITIS, LGIB WITH BRBPR, N/V AND POSSIB LE SEPSIS March 27, 2025 7:51am COLITIS, LGIB WITH BRBPR, N/V AND POSSIB LE SEPSIS March 28, 2025 2:00pm Hospital April 17, 2025 10:5 0am LUMBAR SPINE April 28, 2025 7:59 am Reason for Visit Admit Date Cystocele January 31, 2025 3:4 8pm Urinary incontinence January 31, 2025 3: 48pm Cystocele February 08, 2025 12:51p m Urinary incontinence February 08, 2025 12:51 pm ABLA (acute blood loss anemia) March 12:30am Colitis March 25, 2025 12:3 0am Fever March 25, 2025 12:3 0am Hypotension March 25, 2025 12:3 0am Leukocytosis March 25, 2025 12:3 0am LGI bleed March 25, 2025 12:3 0am Nausea and vomiting March 25, 2025 12:3 0am Sepsis March 25, 2025 12:3 0am Obesity (BMI 30-39.9) March 25, 2025 12 :30am 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, 2025 10:5 0am Ischemic colitis April 17, 2025 10:5 0am Lower gastrointestinal bleeding April 10:50am Facet arthritis of lumbar region April 282024 7:59am Lumbar stenosis April 28, 2025 7:59 am Scoliosis April 28, 2025 7:59 am Synovial cyst of lumbar spine April 28, 2025 7:59am Reason for Visit Admit Date Cystocele January 31, 2025 3:4 8pm Urinary incontinence January 31, 2025 3: 48pm Cystocele February 08, 2025 12:51p m Urinary incontinence February 08, 2025 12:51 pm ABLA (acute blood loss anemia) March 12:30am Colitis March 25, 2025 12:3 0am Fever March 25, 2025 12:3 0am Hypotension March 25, 2025 12:3 0am Leukocytosis March 25, 2025 12:3 0am LGI bleed March 25, 2025 12:3 0am Nausea and vomiting March 25, 2025 12:3 0am Sepsis March 25, 2025 12:3 0am Obesity (BMI 30-39.9) March 25, 2025 12 :30am 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, 2025 10:5 0am Ischemic colitis April 17, 2025 10:5 0am Lower gastrointestinal bleeding April 10:50am Facet arthritis of lumbar region April 282024 7:59am Lumbar stenosis April 28, 2025 7:59 am Synovial cyst of lumbar spine April 28, 2025 7:59am Additional Source Comments INFORMATION SOURCE (unrecogn ized section and content) DATE CREATED AUTHOR 03/26/2018 [facility] DATE CREATED AUTHOR AUTHOR'S ORGANIZ ATION 11/26/2022 [facility] DATE CREATED AUTHOR AUTHOR'S ORGANIZ ATION 11/26/2022 [employer] DATE CREATED AUTHOR AUTHOR'S ORGANIZ ATION 04/07/2025 [facility] DATE CREATED AUTHOR AUTHOR'S ORGANIZ ATION 05/07/2025 [facility] Goals (unrecognized section and content) Goals [...] Dr. Tequila Renee MD Primary Care Provider, Refernisha g Provider Active Juan Francisco COLBERT, PA Attending Provider Active Team Status: Active Member Role Status Dates Dr. Tequila Renee MD Primary Care Provider, Refernisha g Provider Active Dr. Sarwat Romeo MD [...] MD Primary Care Provider Active Juan Francisco Gonzalez PA, PA Attending Provider Active Team Status: Active Member Role Status Dates Dr. Tequila Renee MD Primary Care Provider, Attendin g Provider Active Team Status: Inactive Member Role Status Dates Dr. Tequila Renee MD Primary Care Prov ider, Attending Provider, Referring Provider Active Team Status: Inactive Member Role Status Dates Dr. Tequila Renee MD Primary Care Provider, Attendin g Provider Active [employer] Relationship Specialty [place] [address] [place] [address] [place] [address] PCP - General Family Medicine 01/05/23 Team [...] Provider, Referrin g Provider Active Dr. Soy Wrihgt MD Attending Provider Active Team Status: Inactive [...] Care Provider, Referrin g Provider Active Mahi COLBERT PA-C Attending Provider Active Team Status: Inactive [...] 11, 2024 End: November 11, 2024 Dr. 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 Tequila eRnee MD Primary Care Provider Active Start: February [...] Renee MD Primary Care Provider Active Start: March 25, 2025 Dr. Bry Toribio DO Referring Provider Active Start: March 25, 2025 Dr. Bry Toribio DO Emergency Provider Active Start: March 25, 2025 Dr. Jason Watters DO Admit Provider Active Start: March 25, 2025 Dr. Jason Watters DO Attending Provider Active Start: March 25, 2025 Team Status: Inactive Member Role Status Dates Dr. Tequila Renee MD Primary Care Provider Active Start: March 25, 2025 End: March 28, 2025 Dr. Bry Toribio DO Referring Provider Active Start: March 25, 2025 End: March 28, 2025 Dr. Bry Toribio DO Emergency Provider Active Start: March 25, 2025 End: March 28, 2025 Dr. Jason Watters DO Admit Provider Active Start: March 25, 2025 End: March 28, 2025 Dr. Jason Watters DO Other Provider Active Start: March 25, 2025 End: March 28, 2025 Dr. Bry Dominguez DO Attending Provider Active Start: March 25, 2025 End: March 28, 2025 Dr. Chad Rosenthal MD Other Provider Active Start: March 25, 2025 End: March 28, 2025 Dr. Lawrence Thomas MD Other Provider Active Start: March 25, 2025 End: March 28, 2025 Dr. Marcus Willard MD Other Provider Active Star t: March 25, 2025 End: March 28, 2025 Dr. Prakash Handley DO Other Provider Active Start : March 25, 2025 End: March 28, 2025 Dr. Jason Ferrell MD Other Provider Active Sta rt: March 25, 2025 End: March 28, 2025 Dr. Dano Rojas MD Other Provider Active St art: March 25, 2025 End: March 28, 2025 Dr. Ravindra Bernal MD Other Provider Active S tart: March 25, 2025 End: March 28, 2025 Dr. Crystal Sierra MD Other Provider Active Start: March 25, 2025 End: March 28, 2025 Dr. Rj Hurst MD Other Provider Active Start : March 25, 2025 End: March 28, 2025 Dr. Bimal Julian MD Other Provider Active Start: March 25, 2025 End: March 28, 2025 Dr. James Vera MD Other Provider Active Start : March 25, 2025 End: March 28, 2025 Dr. Daya Fofana MD Other Provider Active Star t: March 25, 2025 End: March 28, 2025 Dr. Dalton Mendoza MD Other Provider Active Sta rt: March 25, 2025 End: March 28, 2025 Dr. Brooke White MD Other Provider Active Sta rt: March 25, 2025 End: March 28, 2025 Dr. Andrea Shelton MD Other Provider Active Star t: March 25, 2025 End: March 28, 2025 Dr. Chang Rahman MD Other Provider Active St art: March 25, 2025 End: March 28, 2025 Dr. Magdiel Naidu MD Other Provider Active Star t: March 25, 2025 End: March 28, 2025 Dr. Corbin Palomares , Other Provider Active St art: March 25, 2025 End: March 28, 2025 Dr. Chencho Pereira MD Other Provider Active Start: March 25, 2025 End: March 28, 2025 Dr. Joey Teran MD Other Provider Active St art: March 25, 2025 End: March 28, 2025 Dr. Adolfo Noe , Other Provider Active Start: March 25, 2025 End: March 28, 2025 Dr. Robert Kirkpatrick MD Other Provider Active Star t: March 25, 2025 End: March 28, 2025 Dr. Pasha Salazar MD Other Provider Active Sta rt: March 25, 2025 End: March 28, 2025 Team Status: Active Member Role Status Dates Dr. Tequila Renee MD Primary Care Provider Active Start: March 25, 2025 Dr. Bry Toribio DO Referring Provider Active Start: March 25, 2025 Dr. Bry Toribio DO Emergency Provider Active Start: March 25, 2025 Dr. Jason Watters DO Admit Provider Active Start: March 25, 2025 Dr. Jason Watters DO Other Provider Active Start: March 25, 2025 Dr. Chad Rosenthal MD Other Provider Active Start: March 25, 2025 Dr. Lawrence Thomas MD Other Provider Active Start: March 25, 2025 Dr. Marcus Willard MD Other Provider Active Star t: March 25, 2025 Dr. Prakash Handley , Other Provider Active Start : March 25, 2025 Dr. Jason Ferrell MD Other Provider Active Sta rt: March 25, 2025 Dr. Dano Rojas MD Other Provider Active St art: March 25, 2025 Dr. Ravindra Bernal MD Other Provider Active S tart: March 25, 2025 Dr. Crystal Sierra MD Other Provider Active Start: March 25, 2025 Dr. Rj Hurst MD Other Provider Active Start : March 25, 2025 Dr. Bimal Julian MD Other Provider Active Start: March 25, 2025 Dr. James Vera MD Other Provider Active Start : March 25, 2025 Dr. Daya Fofana MD Other Provider Active Star t: March 25, 2025 Dr. Dalton Mendoza MD Other Provider Active Sta rt: March 25, 2025 Dr. Brooke White MD Other Provider Active Sta rt: March 25, 2025 Dr. Andrea Shelton MD Other Provider Active Star t: March 25, 2025 Dr. Chang Rahman MD Other Provider Active St art: March 25, 2025 Dr. Magdiel Naidu MD Other Provider Active Star t: March 25, 2025 Dr. Corbin Palomares , DO Other Provider Active St art: March 25, 2025 Dr. Chencho Pereira MD Other Provider Active Start: March 25, 2025 Dr. Joey Teran MD Other Provider Active St art: March 25, 2025 Dr. Adolfo Noe , Other Provider Active Start: March 25, 2025 Dr. Robert Kirkpatrick MD Other Provider Active Star t: March 25, 2025 Dr. Pasha Salazar MD Other Provider Active Sta rt: March 25, 2025 Dr. Bry Dominguez DO Attending Provider Active Start: March 25, 2025 Dr. Bry Dominguez DO Other Provider Active Star t: March 25, 2025 Team Status: Active Member Role Status Dates Dr. Tequila Renee MD Primary Care Provider Active Start: March 25, 2025 Dr. Bry Toribio DO Referring Provider Active Start: March 25, 2025 Dr. Bry Toribio DO Emergency Provider Active Start: March 25, 2025 Dr. Jason Watters DO Admit Provider Active Start: March 25, 2025 Dr. Jason Watters DO Other Provider Active Start: March 25, 2025 Dr. Chad Rosenthal MD Other Provider Active Start: March 25, 2025 Dr. Lawrence Thomas MD Other Provider Active Start: March 25, 2025 Dr. Marcus Willard MD Other Provider Active Star t: March 25, 2025 Dr. Prakash Handley , Other Provider Active Start : March 25, 2025 Dr. Jason Ferrell MD Other Provider Active Sta rt: March 25, 2025 Dr. Dano oRjas MD Other Provider Active St art: March 25, 2025 Dr. Ravindra Bernal MD Other Provider Active S tart: March 25, 2025 Dr. Crystal Sierra MD Other Provider Active Start: March 25, 2025 Dr. Rj Hurst MD Other Provider Active Start : March 25, 2025 Dr. Bimal Julian MD Other Provider Active Start: March 25, 2025 Dr. James Vera MD Other Provider Active Start : March 25, 2025 Dr. Daya Fofana MD Other Provider Active Star t: March 25, 2025 Dr. Dalton Mendoza MD Other Provider Active Sta rt: March 25, 2025 Dr. Brooke White MD Other Provider Active Sta rt: March 25, 2025 Dr. Andrea Shelton MD Other Provider Active Star t: March 25, 2025 Dr. Chang Rahman MD Other Provider Active St art: March 25, 2025 Dr. Magdiel Naidu MD Other Provider Active Star t: March 25, 2025 Dr. Corbin Palomares DO Other Provider Active St art: March 25, 2025 Dr. Chencho Pereira MD Other Provider Active Start: March 25, 2025 Dr. Joey Teran MD Other Provider Active St art: March 25, 2025 Dr. Adolfo Noe DO Other Provider Active Start: March 25, 2025 Dr. Robert Kirkpatrick MD Other Provider Active Star t: March 25, 2025 Dr. Pasha Salazar MD Other Provider Active Sta rt: March 25, 2025 Dr. Bry Dominguez DO Other Provider Active Star t: March 25, 2025 Dr. Chele Manriquez , Attending Provider Active Start: March 25, 2025 Team Status: Active Member Role Status Dates Dr. Tequila Renee MD Primary Care Provider Active Start: March 26, 2025 Dr. Bry Toribio DO Referring Provider Active Start: March 26, 2025 Dr. Bry Toribio , Emergency Provider Active Start: March 26, 2025 Dr. Jason Watters DO Admit Provider Active Start: March 26, 2025 Dr. Jason Watters DO Other Provider Active Start: March 26, 2025 Dr. Chad Rosenthal MD Other Provider Active Start: March 26, 2025 Dr. Lawrence Thomas MD Other Provider Active Start: March 26, 2025 Dr. Marcus Willard MD Other Provider Active Star t: March 26, 2025 Dr. Prakash Handley , Other Provider Active Start : March 26, 2025 Dr. Jason Ferrell MD Other Provider Active Sta rt: March 26, 2025 Dr. Dano Rojas MD Other Provider Active St art: March 26, 2025 Dr. Ravindra Bernal MD Other Provider Active S tart: March 26, 2025 Dr. Crystal Sierra MD Other Provider Active Start: March 26, 2025 Dr. Rj Hurst MD Other Provider Active Start : March 26, 2025 Dr. Bimal Julian MD Other Provider Active Start: March 26, 2025 Dr. James Vera MD Other Provider Active Start : March 26, 2025 Dr. Daya Fofana MD Other Provider Active Star t: March 26, 2025 Dr. Dalton Mendoza MD Other Provider Active Sta rt: March 26, 2025 Dr. Brooke White MD Other Provider Active Sta rt: March 26, 2025 Dr. Anrdea Shelton MD Other Provider Active Star t: March 26, 2025 Dr. Chang Rahman MD Other Provider Active St art: March 26, 2025 Dr. Magdiel Naidu MD Other Provider Active Star t: March 26, 2025 Dr. Corbin Palomares , Other Provider Active St art: March 26, 2025 Dr. Chencho Pereira MD Other Provider Active Start: March 26, 2025 Dr. Joey Teran MD Other Provider Active St art: March 26, 2025 Dr. Adolfo Noe , Other Provider Active Start: March 26, 2025 Dr. Robert Kirkpatrick MD Other Provider Active Star t: March 26, 2025 Dr. Pasha Salazar MD Other Provider Active Sta rt: March 26, 2025 Dr. Bry Dominguez DO Attending Provider Active Start: March 26, 2025 Dr. Bry Dominguez , Other Provider Active Star t: March 26, 2025 Team Status: Active Member Role Status Dates Dr. Tequila Renee MD Primary Care Provider Active Start: March 27, 2025 Dr. Bry Toribio , Referring Provider Active Start: March 27, 2025 Dr. Bry Toribio , DO Emergency Provider Active Start: March 27, 2025 Dr. Jason Watters DO Admit Provider Active Start: March 27, 2025 Dr. Jason Watters , Other Provider Active Start: March 27, 2025 Dr. Chad Rosenthal MD Other Provider Active Start: March 27, 2025 Dr. Lawrence Thomas MD Other Provider Active Start: March 27, 2025 Dr. Marcus Willard MD Other Provider Active Star t: March 27, 2025 Dr. Prakash Handley DO Other Provider Active Start : March 27, 2025 Dr. Jason Ferrell MD Other Provider Active Sta rt: March 27, 2025 Dr. Dano Rojas MD Other Provider Active St art: March 27, 2025 Dr. Ravindra Bernal MD Other Provider Active S tart: March 27, 2025 Dr. Crystal Sierra MD Other Provider Active Start: March 27, 2025 Dr. Rj Hurst MD Other Provider Active Start : March 27, 2025 Dr. Bimal Julian MD Other Provider Active Start: March 27, 2025 Dr. James Vera MD Other Provider Active Start : March 27, 2025 Dr. Daya Fofana MD Other Provider Active Star t: March 27, 2025 Dr. Dalton Mendoza MD Other Provider Active Sta rt: March 27, 2025 Dr. Brooke White MD Other Provider Active Sta rt: March 27, 2025 Dr. Andrea Shelton MD Other Provider Active Star t: March 27, 2025 Dr. Chang Rahman MD Other Provider Active St art: March 27, 2025 Dr. Magdiel Naidu MD Other Provider Active Star t: March 27, 2025 Dr. Corbin Palomares DO Other Provider Active St art: March 27, 2025 Dr. Chencho Pereira MD Other Provider Active Start: March 27, 2025 Dr. Joey Teran MD Other Provider Active St art: March 27, 2025 Dr. Adolfo Noe , Other Provider Active Start: March 27, 2025 Dr. Robert Kirkpatrick MD Other Provider Active Star t: March 27, 2025 Dr. Pasha Salazar MD Other Provider Active Sta rt: March 27, 2025 Dr. Bry Dominguez DO Attending Provider Active Start: March 27, 2025 Dr. Bry Dominguez DO Other Provider Active Star t: March 27, 2025 Team Status: Active Member Role Status Dates Dr. Tequila Renee MD Primary Care Provider Active Start: March 28, 2025 Dr. Bry Toribio DO Referring Provider Active Start: March 28, 2025 Dr. Bry Toribio DO Emergency Provider Active Start: March 28, 2025 Dr. Jason Watters DO Admit Provider Active Start: March 28, 2025 Dr. Jason Watters DO Other Provider Active Start: March 28, 2025 Dr. Bry Dominguez DO Attending Provider Active Start: March 28, 2025 Dr. Bry Dominguez DO Other Provider Active Star t: March 28, 2025 Dr. Chad Rosenthal MD Other Provider Active Start: March 28, 2025 Dr. Lawrence Thomas MD Other Provider Active Start: March 28, 2025 Dr. Marcus Willard MD Other Provider Active Star t: March 28, 2025 Dr. Prakash Handley DO Other Provider Active Start : March 28, 2025 Dr. Jason Ferrell MD Other Provider Active Sta rt: March 28, 2025 Dr. Dano Rojas MD Other Provider Active St art: March 28, 2025 Dr. Ravindra Bernal MD Other Provider Active S tart: March 28, 2025 Dr. Crystal Sierra MD Other Provider Active Start: March 28, 2025 Dr. Rj Hurst MD Other Provider Active Start : March 28, 2025 Dr. Bimal Julian MD Other Provider Active Start: March 28, 2025 Dr. James Vera MD Other Provider Active Start : March 28, 2025 Dr. Daya Fofana MD Other Provider Active Star t: March 28, 2025 Dr. Dalton Mendoza MD Other Provider Active Sta rt: March 28, 2025 Dr. Brooke White MD Other Provider Active Sta rt: March 28, 2025 Dr. Andrea Shelton MD Other Provider Active Star t: March 28, 2025 Dr. Chang Rahman MD Other Provider Active St art: March 28, 2025 Dr. Magdiel Naidu MD Other Provider Active Star t: March 28, 2025 Dr. Corbin Palomares DO Other Provider Active St art: March 28, 2025 Dr. Chencho Pereira MD Other Provider Active Start: March 28, 2025 Dr. Joey Teran MD Other Provider Active St art: March 28, 2025 Dr. Adolfo Noe DO Other Provider Active Start: March 28, 2025 Dr. Robert Kirkpatrick MD Other Provider Active Star t: March 28, 2025 Dr. Pasha Salazar MD Other Provider Active Sta rt: March 28, 2025 [employer] Relationship Specialty Start Date End Date Tequila Renee MD [address] [place] [address] PCP - General Family Medicine 01/05/23 Yissel Costello, RN Operating Systems Program[employer] 03/29/25 Team Status: Active Member Role/Relationship Status Dates Dr. Tequila Renee MD Primary Care Provider Active Team Status: Inactive Member Role/Relationship Status Dates Dr. Tequila Renee MD Primary Care Provider Active Start: January 02, 2025 End: January 02, 2025 Dr. Philip Gerber MD Attending Provider Active Start: January 02, 2025 End: January 02, 2025 Dr. Philip Gerber MD Referring Provider Active Start: January 02, 2025 End: January 02, 2025 Team Status: Inactive Member Role/Relationship Status Dates Dr. Tequila Renee MD Primary Care Provider Active Start: January 06, 2025 End: January 06, 2025 Dr. Philip Gerber MD Attending Provider Active Start: January 06, 2025 End: January 06, 2025 Dr. Philip Gerber MD Referring Provider Active Start: January 06, 2025 End: January 06, 2025 Team Status: Inactive Member Role/Relationship Status Dates Dr. Tequila Renee MD Primary Care Provider Active Start: January 09, 2025 End: January 09, 2025 Dr. Philip Gerber MD Attending Provider Active Start: January 09, 2025 End: January 09, 2025 Dr. Philip Gerber MD Referring Provider Active Start: January 09, 2025 End: January 09, 2025 Team Status: Inactive Member Role/Relationship Status Dates Dr. Tequila Renee MD Primary Care Provider Active Start: January 31, 2025 End: January 31, 2025 Dr. Tequila Renee MD Referring Provider Active Start: January 31, 2025 End: January 31, 2025 Dr. Navya Mead MD Attending Provider Active Start: January 31, 2025 End: January 31, 2025 Team Status: Inactive Member Role/Relationship Status Dates Dr. Tequila Renee MD Primary Care Provider Active Start: February 08, 2025 End: February 08, 2025 Dr. Tequila Renee MD Referring Provider Active Start: February 08, 2025 End: February 08, 2025 Dr. Navya Mead MD Attending Provider Active Start: February 08, 2025 End: February 08, 2025 Team Status: Inactive Member Role/Relationship Status Dates Dr. Tequila Renee MD Primary Care Provider Active Start: February 08, 2025 End: February 08, 2025 Dr. Navya Mead MD Attending Provider Active Start: February 08, 2025 End: February 08, 2025 Dr. Navya Mead MD Referring Provider Active Start: February 08, 2025 End: February 08, 2025 Team Status: Inactive Member Role/Relationship Status Dates Dr. Tequila Renee MD Primary Care Provider Active Start: March 25, 2025 End: March 28, 2025 Dr. Bry Toribio DO Referring Provider Active Start: March 25, 2025 End: March 28, 2025 Dr. Bry Toribio DO Emergency Provider Active Start: March 25, 2025 End: March 28, 2025 Dr. Jason Watters DO Admit Provider Active Start: March 25, 2025 End: March 28, 2025 Dr. Jason Watters DO Other Provider Active Start: March 25, 2025 End: March 28, 2025 Dr. Bry Dominguez DO Attending Provider Active Start: March 25, 2025 End: March 28, 2025 Dr. Chad Rosenthal MD Other Provider Active Start: March 25, 2025 End: March 28, 2025 Dr. Lawrence Thomas MD Other Provider Active Start: March 25, 2025 End: March 28, 2025 Dr. Marcus Willard MD Other Provider Active Star t: March 25, 2025 End: March 28, 2025 Dr. Prakash Handley DO Other Provider Active Start : March 25, 2025 End: March 28, 2025 Dr. Jason Ferrell MD Other Provider Active Sta rt: March 25, 2025 End: March 28, 2025 Dr. Dano Rojas MD Other Provider Active St art: March 25, 2025 End: March 28, 2025 Dr. Ravindra Bernal MD Other Provider Active S tart: March 25, 2025 End: March 28, 2025 Dr. Crystal Sierra MD Other Provider Active Start: March 25, 2025 End: March 28, 2025 Dr. Rj Hurst MD Other Provider Active Start : March 25, 2025 End: March 28, 2025 Dr. Bimal Julian MD Other Provider Active Start: March 25, 2025 End: March 28, 2025 Dr. James Vera MD Other Provider Active Start : March 25, 2025 End: March 28, 2025 Dr. Daya Fofana MD Other Provider Active Star t: March 25, 2025 End: March 28, 2025 Dr. Dalton Mendoza MD Other Provider Active Sta rt: March 25, 2025 End: March 28, 2025 Dr. Brooke White MD Other Provider Active Sta rt: March 25, 2025 End: March 28, 2025 Dr. Andrea Shelton MD Other Provider Active Star t: March 25, 2025 End: March 28, 2025 Dr. Chang Rahman MD Other Provider Active St art: March 25, 2025 End: March 28, 2025 Dr. Magdiel Naidu MD Other Provider Active Star t: March 25, 2025 End: March 28, 2025 Dr. Corbin Palomares , Other Provider Active St art: March 25, 2025 End: March 28, 2025 Dr. Chencho Pereira MD Other Provider Active Start: March 25, 2025 End: March 28, 2025 Dr. Joey Teran MD Other Provider Active St art: March 25, 2025 End: March 28, 2025 Dr. Adolfo Noe , Other Provider Active Start: March 25, 2025 End: March 28, 2025 Dr. Robert Kirkpatrick MD Other Provider Active Star t: March 25, 2025 End: March 28, 2025 Dr. Pasha Salazar MD Other Provider Active Sta rt: March 25, 2025 End: March 28, 2025 Team Status: Active Member Role/Relationship Status Dates Dr. Tequila Renee MD Primary Care Provider Active Start: March 25, 2025 Dr. Bry Toribio DO Emergency Provider Active Start: March 25, 2025 Dr. Jason Watters DO Admit Provider Active Start: March 25, 2025 Dr. Jason Watters DO Other Provider Active Start: March 25, 2025 Dr. Chad Rosenthal MD Other Provider Active Start: March 25, 2025 Dr. Lawrence Thomas MD Other Provider Active Start: March 25, 2025 Dr. Marcus Willard MD Other Provider Active Star t: March 25, 2025 Dr. Prakash Handley DO Other Provider Active Start : March 25, 2025 Dr. Jason Ferrell MD Other Provider Active Sta rt: March 25, 2025 Dr. Dano Rojas MD Other Provider Active St art: March 25, 2025 Dr. Ravindra Bernal MD Other Provider Active S tart: March 25, 2025 Dr. Crystal Sierra MD Other Provider Active Start: March 25, 2025 Dr. Rj Hurst MD Other Provider Active Start : March 25, 2025 Dr. Bimal Julian MD Other Provider Active Start: March 25, 2025 Dr. James Vera MD Other Provider Active Start : March 25, 2025 Dr. Daya Fofana MD Other Provider Active Star t: March 25, 2025 Dr. Dalton Mendoza MD Other Provider Active Sta rt: March 25, 2025 Dr. Brooke White MD Other Provider Active Sta rt: March 25, 2025 Dr. Andrea Shelton MD Other Provider Active Star t: March 25, 2025 Dr. Chang Rahman MD Other Provider Active St art: March 25, 2025 Dr. Magdiel Naidu MD Other Provider Active Star t: March 25, 2025 Dr. Corbin Palomares , Other Provider Active St art: March 25, 2025 Dr. Chencho Pereira MD Other Provider Active Start: March 25, 2025 Dr. Joey Teran MD Other Provider Active St art: March 25, 2025 Dr. Adolfo Noe DO Other Provider Active Start: March 25, 2025 Dr. Robert Kirkpatrick MD Other Provider Active Star t: March 25, 2025 Dr. Pasha Salazar MD Other Provider Active Sta rt: March 25, 2025 Dr. Bry Dominguez DO Attending Provider Active Start: March 25, 2025 Dr. Bry Dominguez DO Other Provider Active Star t: March 25, 2025 Team Status: Active Member Role/Relationship Status Dates Dr. Tequila Renee MD Primary Care Provider Active Start: March 25, 2025 Dr. Bry Toribio DO Referring Provider Active Start: March 25, 2025 Dr. Bry Toribio DO Emergency Provider Active Start: March 25, 2025 Dr. Jason Watters DO Admit Provider Active Start: March 25, 2025 Dr. Jason Watters DO Other Provider Active Start: March 25, 2025 Dr. Chad Rosenthal MD Other Provider Active Start: March 25, 2025 Dr. Lawrence Thomas MD Other Provider Active Start: March 25, 2025 Dr. Marcus Willard MD Other Provider Active Star t: March 25, 2025 Dr. Prakash Handley DO Other Provider Active Start : March 25, 2025 Dr. Jason Ferrell MD Other Provider Active Sta rt: March 25, 2025 Dr. Dano Rojas MD Other Provider Active St art: March 25, 2025 Dr. Ravindra Bernal MD Other Provider Active S tart: March 25, 2025 Dr. Crystal Sierra MD Other Provider Active Start: March 25, 2025 Dr. Rj Hurst MD Other Provider Active Start : March 25, 2025 Dr. Bimal Julian MD Other Provider Active Start: March 25, 2025 Dr. James Vera MD Other Provider Active Start : March 25, 2025 Dr. Daya Fofana MD Other Provider Active Star t: March 25, 2025 Dr. Dalton Mendoza MD Other Provider Active Sta rt: March 25, 2025 Dr. Brooke White MD Other Provider Active Sta rt: March 25, 2025 Dr. Andrea Shelton MD Other Provider Active Star t: March 25, 2025 Dr. Chang Rahman MD Other Provider Active St art: March 25, 2025 Dr. Magdiel Naidu MD Other Provider Active Star t: March 25, 2025 Dr. Corbin Palomares , Other Provider Active St art: March 25, 2025 Dr. Chencho Pereira MD Other Provider Active Start: March 25, 2025 Dr. Joey Teran MD Other Provider Active St art: March 25, 2025 Dr. Adolfo Noe , Other Provider Active Start: March 25, 2025 Dr. Robert Kirkpatrick MD Other Provider Active Star t: March 25, 2025 Dr. Pasha Salazar MD Other Provider Active Sta rt: March 25, 2025 Dr. Bry Dominguez , Other Provider Active Star t: March 25, 2025 Dr. Chele Manriquez , Attending Provider Active Start: March 25, 2025 Team Status: Active Member Role/Relationship Status Dates Dr. Tequila Renee MD Primary Care Provider Active Start: March 26, 2025 Dr. Bry Toribio , Emergency Provider Active Start: March 26, 2025 Dr. Jason Watters , DO Admit Provider Active Start: March 26, 2025 Dr. Jason Watters , DO Other Provider Active Start: March 26, 2025 Dr. Chad Rosenthal MD Other Provider Active Start: March 26, 2025 Dr. Lawrence Thomas MD Other Provider Active Start: March 26, 2025 Dr. Marcus Willard MD Other Provider Active Star t: March 26, 2025 Dr. Prakash Handley , Other Provider Active Start : March 26, 2025 Dr. Jason Ferrell MD Other Provider Active Sta rt: March 26, 2025 Dr. Dano Rojas MD Other Provider Active St art: March 26, 2025 Dr. Ravindra Bernal MD Other Provider Active S tart: March 26, 2025 Dr. Crystal Sierra MD Other Provider Active Start: March 26, 2025 Dr. Rj Hurst MD Other Provider Active Start : March 26, 2025 Dr. Bimal Julian MD Other Provider Active Start: March 26, 2025 Dr. James Vera MD Other Provider Active Start : March 26, 2025 Dr. Daya Fofana MD Other Provider Active Star t: March 26, 2025 Dr. Dalton Mendoza MD Other Provider Active Sta rt: March 26, 2025 Dr. Brooke White MD Other Provider Active Sta rt: March 26, 2025 Dr. Andrea Shelton MD Other Provider Active Star t: March 26, 2025 Dr. Chang Rahman MD Other Provider Active St art: March 26, 2025 Dr. Magdiel Naidu MD Other Provider Active Star t: March 26, 2025 Dr. Corbin Palomares DO Other Provider Active St art: March 26, 2025 Dr. Chencho Pereira MD Other Provider Active Start: March 26, 2025 Dr. Joey Teran MD Other Provider Active St art: March 26, 2025 Dr. Adolfo Noe DO Other Provider Active Start: March 26, 2025 Dr. Robert Kirkpatrick MD Other Provider Active Star t: March 26, 2025 Dr. Pasha Salazar MD Other Provider Active Sta rt: March 26, 2025 Dr. Bry Dominguez DO Attending Provider Active Start: March 26, 2025 Dr. Bry Dominguez DO Other Provider Active Star t: March 26, 2025 Team Status: Active Member Role/Relationship Status Dates Dr. Tequila Renee MD Primary Care Provider Active Start: March 27, 2025 Dr. Bry Toribio DO Emergency Provider Active Start: March 27, 2025 Dr. Jason Watters DO Admit Provider Active Start: March 27, 2025 Dr. Jason Watters DO Other Provider Active Start: March 27, 2025 Dr. Chad Rosenthal MD Other Provider Active Start: March 27, 2025 Dr. Lawrence Thomas MD Other Provider Active Start: March 27, 2025 Dr. Marcus Willard MD Other Provider Active Star t: March 27, 2025 Dr. Prakash Handley , Other Provider Active Start : March 27, 2025 Dr. Jason Ferrell MD Other Provider Active Sta rt: March 27, 2025 Dr. Dano Rojas MD Other Provider Active St art: March 27, 2025 Dr. Ravindra Bernal MD Other Provider Active S tart: March 27, 2025 Dr. Crystal Sierra MD Other Provider Active Start: March 27, 2025 Dr. Rj Hurst MD Other Provider Active Start : March 27, 2025 Dr. Bimal Julian MD Other Provider Active Start: March 27, 2025 Dr. James Vera MD Other Provider Active Start : March 27, 2025 Dr. Daya Fofana MD Other Provider Active Star t: March 27, 2025 Dr. Dalton Mendoza MD Other Provider Active Sta rt: March 27, 2025 Dr. Brooke White MD Other Provider Active Sta rt: March 27, 2025 Dr. Andrea Shelton MD Other Provider Active Star t: March 27, 2025 Dr. Chang Rahman MD Other Provider Active St art: March 27, 2025 Dr. Magdiel Naidu MD Other Provider Active Star t: March 27, 2025 Dr. Corbin Palomares DO Other Provider Active St art: March 27, 2025 Dr. Chencho Pereira MD Other Provider Active Start: March 27, 2025 Dr. Joey Teran MD Other Provider Active St art: March 27, 2025 Dr. Adolfo Noe DO Other Provider Active Start: March 27, 2025 Dr. Robert Kirkpatrick MD Other Provider Active Star t: March 27, 2025 Dr. Pasha Salazar MD Other Provider Active Sta rt: March 27, 2025 Dr. Bry Dominguez DO Attending Provider Active Start: March 27, 2025 Dr. Bry Dominguez DO Other Provider Active Star t: March 27, 2025 Team Status: Active Member Role/Relationship Status Dates Dr. Tequila Renee MD Primary Care Provider Active Start: March 28, 2025 Dr. Bry Toribio DO Emergency Provider Active Start: March 28, 2025 Dr. Jason Watters DO Admit Provider Active Start: March 28, 2025 Dr. Jason Watters DO Other Provider Active Start: March 28, 2025 Dr. Bry Dominguez DO Attending Provider Active Start: March 28, 2025 Dr. Bry Dominguez DO Other Provider Active Star t: March 28, 2025 Dr. Chad Rosenthal MD Other Provider Active Start: March 28, 2025 Dr. Lawrence Thomas MD Other Provider Active Start: March 28, 2025 Dr. Marcus Willard MD Other Provider Active Star t: March 28, 2025 Dr. Prakash Handley DO Other Provider Active Start : March 28, 2025 Dr. Jason Ferrell MD Other Provider Active Sta rt: March 28, 2025 Dr. Dano Rojas MD Other Provider Active St art: March 28, 2025 Dr. Ravindra Bernal MD Other Provider Active S tart: March 28, 2025 Dr. Crystal Sierra MD Other Provider Active Start: March 28, 2025 Dr. Rj Hurst MD Other Provider Active Start : March 28, 2025 Dr. Bmial Julian MD Other Provider Active Start: March 28, 2025 Dr. James Vera MD Other Provider Active Start : March 28, 2025 Dr. Daya Fofana MD Other Provider Active Star t: March 28, 2025 Dr. Dalton Mendoza MD Other Provider Active Sta rt: March 28, 2025 Dr. Brooke White MD Other Provider Active Sta rt: March 28, 2025 Dr. Andrea Shelton MD Other Provider Active Star t: March 28, 2025 Dr. Chang Rahman MD Other Provider Active St art: March 28, 2025 Dr. Magdiel Naidu MD Other Provider Active Star t: March 28, 2025 Dr. Corbin Palomares DO Other Provider Active St art: March 28, 2025 Dr. Chencho Pereira MD Other Provider Active Start: March 28, 2025 Dr. Joey Teran MD Other Provider Active St art: March 28, 2025 Dr. Adolfo Noe DO Other Provider Active Start: March 28, 2025 Dr. Robert Kirkpatrick MD Other Provider Active Star t: March 28, 2025 Dr. Pasha Salazar MD Other Provider Active Sta rt: March 28, 2025 Team Status: Inactive Member Role/Relationship Status Dates Dr. Tequila Renee MD Primary Care Provider Active Start: April 17, 2025 End: April 17, 2025 Dr. Tequila Renee MD Referring Provider Active Start: April 17, 2025 End: April 17, 2025 FILEMON Weiner Attending Provider Active Start: April 17, 2025 End: April 17, 2025 Team Status: Active Member Role/Relationship Status Dates Dr. Tequila Renee MD Primary Care Provider Active Start: April 24, 2025 Dr. Ottoniel Bueno MD Attending Provider Active Start: April 24, 2025 Dr. Ottoniel Bueno MD Referring Provider Active Start: April 24, 2025 Team Status: Inactive Member Role/Relationship Status Dates Dr. Tequila Renee MD Primary Care Provider Active Start: April 28, 2025 End: April 28, 2025 Dr. Tequila Renee MD Referring Provider Active Start: April 28, 2025 End: April 28, 2025 Dr. Ottoniel Bueno MD Attending Provider Active Start: April 28, 2025 End: April 28, 2025 Team Status: Inactive Member Role/Relationship Status Dates Dr. Tequila Renee MD Primary Care Provider Active Start: April 24, 2025 End: April 24, 2025 Dr. Ottoniel Bueno MD Attending Provider Active Start: April 24, 2025 End: April 24, 2025 Dr. Ottoniel Bueno MD Referring Provider Active Start: April 24, 2025 End: April 24, 2025 Reason for Visit (unrecogniz ed section and content) Reason Comments Follow up testing Reason Comments Annual Exam Reason Comments Follow-up FOR RECORDS PERTAINING TO PATIENTS WHO ARE [...] BE BASED ON THE PRIMARY CLINICAL RECORDS. [facility] provides no warranty or guarantee of the accuracy or completeness of information in this document.
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
[2025-05-08] MEDS: Lactated Ringers 1,000 ML 15 ML IV (08:02)
--- NOTE | 2025-05-08 08:32 | PCM.DC.SUM ---
Providers Primary Care Physician: Dr. Tequila Lujan MD Reason For Visit: Excision oropharyngeal neoplasm Medications at Discharge Home Medications naproxen 250 mg tablet 250 - 500 mg (1 - 2 x 250 mg) PO Q8H PRN PRN MILD PAIN #30 tabs 11/06/20 multivitamin 1 cap PO DAILY suppleme 01/30/23 lansoprazole 30 mg capsule,delayed release 30 mg PO DAILY #90 caps 11/11/24 pregabalin 200 mg capsule (Lyrica) 150 mg PO BID pain 11/11/24 acetaminophen 325 mg tablet 1,000 mg (3.0769 x 325 mg) PO Q8H PRN PRN Pain 1-10 Or Fever #0 tabs 03/28/25 docusate sodium 50 mg capsule 50 mg PO QDAY 04/17/25 oxycodone-acetaminophen 5 mg-325 mg tablet 1 tab PO TID PRN PRN pain 04/21/25 estradiol 14 mcg/24 hr weekly transdermal patch 1 patch transdermal QWEEK #4 ea 04/25/25 dicyclomine 10 mg capsule 20 mg PO TID abdominal cramping 05/08/25 Weight / BMI Weight Weight: 96.4 kg Body Mass Index (BMI) 36.4 ABG / Lab / Microbiology Data 04/24/25 13:38 04/24/25 13:38 D/C Instructions Discharge Activity: Return to Normal Activity Additional Activity Instructions: Soft diet for 10 days DC O2, CPAP, BIPAP Needs Home O2 Discharge instructions: No Please Follow Up With: Diaz Kaiser MD When: 2-3 weeks Meaningful Use Info Meaningful Use Meaningful Use Diagnoses (Choose all that apply): None applicable Discharge Plan Admission Attending Provider: Diaz Kaiser Primary Care Provider: Tequila Lujan Instructions Print Language: [place] Discharge Orders/Prescriptions Prescriptions: No Action pregabalin [Lyrica] 200 mg capsule 150 mg PO BID lansoprazole 30 mg capsule,delayed release(DR/EC) 30 mg PO DAILY Qty: 90 3RF docusate sodium 50 mg capsule 50 mg PO QDAY naproxen 250 MG tablet 250 - 500 mg PO Q8H PRN PRN (Reason: MILD PAIN) Qty: 30 1RF multivitamin Capsule 1 cap PO DAILY Patient Comments: Patient states does not take consistently oxycodone-acetaminophen 5-325 mg tablet 1 tab PO TID PRN PRN (Reason: pain) dicyclomine 10 mg capsule 20 mg PO TID acetaminophen 325 mg Tablet 1,000 mg PO Q8H PRN PRN (Reason: Pain 1-10 Or Fever) Qty: 0 0RF estradiol 14 mcg/24 hr patch weekly 1 patch transdermal QWEEK Qty: 4 12RF Referrals / Follow Up: Tequila Lujan MD [Primary Care Provider] - Disposition Disposition (needs filled in before D/C Order can be placed): Home, Self Care
[2025-05-08] MEDS: FENTANYL 10 MCG IV (08:40)
--- NOTE | 2025-05-08 08:45 | TISS_PTH ---
PATIENT: BRISSA STEELE LOC: [facility] [place] U#:[id number] AGE/SX: 54/F ROOM: RE05/08/[address]: Dr. Diaz Kaiser MD : [id number] BED: DIS: 05/08/2025 SPEC #: [id number] RECD: 05/08/25 11:34 STATUS: YUAN JESSA #: [id number] AMINA: 05/08/25 08:[address]: Diaz Kaiser DEPT: SURGICAL PATHOLOGY RECD BY: Dexter Partida ENTERED: 05/08/25 13:40 SP TYPE: Tissue Bx SANDEEP DR: Dr. Tequila Lujan MD Tissues: A - TISSUE SURGICALLY REMOVED Procedures: Surgery Specimen Level IV HEADER OPERATION: Excision oropharyngeal neoplasm PRE-OP DIAGNOSIS: 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 TISSUE SUBMITTED:A- Left oropharyngeal neoplasm MICROSCOPIC DIAGNOSIS A. Oropharynx, left, neoplasm, shave excision: - Benign squamous papilloma. MICROSCOPIC DESCRIPTION Slides are reviewed. GROSS DESCRIPTION A. Received in formalin labeled with the patient's name and date of . Designated as left oropharyngeal neoplasm is a 0.5 x 0.3 x 0.1 cm johnston-white to pink irregular tissue fragment. Entirely submitted in 1 cassette. [place] 05/08/2025 CPT:72145
[2025-05-08] MEDS: Lidocaine 1% /Epi 1:100 (20ml) 20 ML Vial (08:52)
--- NOTE | 2025-05-08 09:00 | OP.PCM_ITS ---
Operative Report (Standard) Operative Information Date of Procedure: 05/08/25 Pre-Operative Diagnosis: left oropharyngeal neoplasm Post-Operative Diagnosis: same Surgery/Procedure Performed: Excision left oropharyngeal neoplasm clinical reimbursement specialist: No Type of Anesthesia: General RN Documented Start/Stop Times: Operation Date: 05/08/25 08:45 Case Time Into Pre-Op 05/08/25 07:33 Out of Pre-Op 05/08/25 08:36 Anesthesia Start 05/08/25 08:38 Into Room 05/08/25 08:38 Procedure Start 05/08/25 08:52 Procedure Start Time: 08:52 Procedure Stop Time: 09:01 Select all DRAINS/GRAFTS/IMPLANTS that apply: None Estimated Blood Loss: 1 cc Specimen collected: Yes Description of specimen(s) removed: left oropharyngeal neoplasm Description of surgery: The patient was taken to the operating room on 05/08/2025. She was placed in the supine position on the operating room table. She was given sufficient general endotracheal anesthesia. The table was turned 90 degrees in a clockwise fashion. The patient was draped sterilely. A Duc mouthgag inserted into the patient's mouth the patient was then suspended on a Ann stand. 1% lidocaine with epinephrine was injected into the mucosa surrounding the left oropharyngeal lesion. The lesion was located at the takeoff of the anterior and posterior tonsillar pillar. The entire tonsil was examined and found to be normal. The lesion was excised with a 15 blade. Suction cautery was used for hemostasis. I then closed the incision with 4-0 chromic. All irrigant was suctioned with the patient's oropharynx. The mouthgag was closed and removed. The patient was then awoken and brought to the recovery room in stable condition. Blood loss minimal, replacement none. Sponge, needle and instrument count were correct at the end of the procedure. Surgical Findings: neoplasm Complications Complications: No
--- NOTE | 2025-05-08 09:14 | PCM.POST.ANE ---
Anesthesia: Postop Eval I Current Vital Signs Temperature: 97.5 F Pulse Rate: 75 Blood Pressure: 97/55 Respiratory Rate: 18 Pulse Ox: 93 Assessment Airway patent: Yes Spontaneous unlabored respirations: Yes nausea: No Vomiting: No Anesthesia Complication: No Fluid Hydration Crystalloid volume administer (ml): 500 Total IV fluid infused: 500 Progress Note Anesthesia document: Postop Eval 1 completed: Yes
--- NOTE | 2025-05-08 12:40 | POSTOPAN2_ITS ---
Anesthesia Postop Eval I Sum Postop Eval Completion status Anesthesia document: Postop Eval 1 completed: Yes Anesthesia Postop Eval I Summary Anesthesia Postop Eval I Summary: Anesthesia Postop Eval I: Assessment Summary Airway patent Yes 05/08/25 09:14 [email or web address] Spontaneous unlabored Yes 05/08/25 09:14 ANGLE [email or web address] respirations Mental status nausea No 05/08/25 09:14 ANGLE [email or web address] Vomiting No 05/08/25 09:14 [email or web address] Anesthesia Postop Eval I: Fluid Summary Crystalloid volume administer 500 05/08/25 09:14 [email or web address] (ml) Colloids volume administered ( ml) Blood Product volume administered (ml) Total IV fluid infused 500 05/08/25 09:14 ANGLE [email or web address] Anesthesia Postop Eval I: Summary Notes Anesthesia Complication No 05/08/25 09:14 ANGLE [email or web address] Anesthesia Complication Comment: Post-operative progress note Anesthesia: Postop Eval II Evaluation Mental status: Awake Pain Level: 1 nausea: No Vomiting: No
--- NOTE | 2025-05-08 12:40 | PCM.POSTANE2 ---
Anesthesia Postop Eval I Sum Postop Eval Completion status Anesthesia document: Postop Eval 1 completed: Yes Anesthesia Postop Eval I Summary Anesthesia Postop Eval I Summary: Anesthesia Postop Eval I: Assessment Summary Airway patent Yes 05/08/25 09:14 [email or web address] Spontaneous unlabored Yes 05/08/25 09:14 [email or web address] respirations Mental status nausea No 05/08/25 09:14 [email or web address] Vomiting No 05/08/25 09:14 [email or web address] Anesthesia Postop Eval I: Fluid Summary Crystalloid volume administer 500 05/08/25 09:14 [email or web address] (ml) Colloids volume administered ( ml) Blood Product volume administered (ml) Total IV fluid infused 500 05/08/25 09:14 [email or web address] Anesthesia Postop Eval I: Summary Notes Anesthesia Complication No 05/08/25 09:14 [email or web address] Anesthesia Complication Comment: Post-operative progress note Anesthesia: Postop Eval II Evaluation Mental status: Awake Pain Level: 1 nausea: No Vomiting: No
== END 2025-05-08 10:29 | disposition home or self-care (01) ==
LOC: SDC 07:22 → AC 07:23
PROVIDERS: PCP Family Medicine; Referring Provider Otolaryngology; Visit Provider Otolaryngology
PROC: (CPT 42808; principal; 2025-05-08 08:35)
DX: D10.5 Benign neoplasm of other parts of oropharynx (principal); K21.9 Gastro-esophageal reflux disease without esophagitis; G50.0 Trigeminal neuralgia; Z79.899 Other long term (current) drug therapy
CPT/HCPCS: 42808; 00170; 36415; 80048; 85027; 88305; 93005; J2405

== ENCOUNTER 2025-05-22 08:10 | Day surgery (SDC) | payer OTHER, SELFPAY ==
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
[2025-05-22] VITALS (7 sets, daily range): BP systolic 101–114; BP diastolic 60–78; PULSE 71–79; RESP 16–20; TEMP 36.1–36.6; O2SAT 94–100; BMI 37.0
[2025-05-22] MEDS: Lactated Ringers 1,000 ML 15 ML IV (08:36)
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
--- NOTE | 2025-05-22 09:10 | RAD_ITS ---
PROCEDURE: FLUOR GUIDANCE FOR SPINE INJ 05/22/2025 REASON FOR EXAM: BLOCK; CAUDAL TECHNIQUE: FLUOR GUIDANCE FOR SPINE INJ dose report: 7.2 seconds of fluoroscopy. 6.76 mGy. 2 images were submitted. COMPARISON: None FINDINGS: Intraoperative imaging provided for caudal block. RAD/Fluor Guidance for Spine Inj IMPRESSION: Intraoperative imaging provided for caudal block. Reading Location: [facility]
[2025-05-22] MEDS: Lidocaine 1% (5 ml sdv) 5 ML Vial (09:15)
[2025-05-22] MEDS: 0.9% Normal Saline (Pres. free 10 ML Vial (09:15)
--- NOTE | 2025-05-22 09:15 | PCM.POST.ANE ---
Anesthesia: Postop Eval I Current Vital Signs Temperature: 97 F Pulse Rate: 79 Blood Pressure: 107/78 Respiratory Rate: 20 Pulse Ox: 98 Assessment Airway patent: Yes Spontaneous unlabored respirations: Yes nausea: No Vomiting: No Anesthesia Complication: No Fluid Hydration Crystalloid volume administer (ml): 200 Total IV fluid infused: 200 Progress Note Anesthesia document: Postop Eval 1 completed: Yes
--- NOTE | 2025-05-22 09:23 | PCM.OPRPT ---
Operative Report (Standard) Operative Information Date of Procedure: 05/22/25 Pre-Operative Diagnosis: Lumbosacral radiculopathy, lumbosacral degenerative disc disease, lumbosacral spinal stenosis Post-Operative Diagnosis: Lumbosacral radiculopathy, lumbosacral degenerative disc disease, lumbosacral spinal stenosis Surgery/Procedure Performed: Diagnostic/therapeutic caudal epidural steroid injection under fluoroscopic guidance trailer body assembler: No Type of Anesthesia: Local MAC RN Documented Start/Stop Times: Operation Date: 05/22/25 09:30 Case Time Into Pre-Op 05/22/25 08:13 Out of Pre-Op 05/22/25 09:00 Anesthesia Start 05/22/25 09:05 Into Room 05/22/25 09:05 Procedure Start 05/22/25 09:12 Procedure End 05/22/25 09:14 Anesthesia End 05/22/25 09:17 Out of Room 05/22/25 09:17 Into Recovery 05/22/25 09:20 Procedure Start Time: 09:24 Procedure Stop Time: 09:24 Select all DRAINS/GRAFTS/IMPLANTS that apply: None Estimated Blood Loss: 1 Specimen collected: No Description of surgery: ANESTHESIA: MAC. BLOOD LOSS: Minimal. COMPLICATIONS: None. DESCRIPTION OF PROCEDURE: History and physical of today was reviewed. Risks and benefits of the procedure were explained. The patient understood and agreed to proceed. Informed consent was obtained. IV inserted per routine protocol. The patient was taken to the operating room and placed in the prone position with a pillow positioned underneath the abdomen. The lower back and tailbone area was prepped and draped in a sterile fashion using iodine x3. Under fluoroscopy guidance on a lateral view, the caudal space was identified. The skin and subcutaneous tissue was anesthetized with approximately 3 mL of 1% lidocaine using a 25-gauge regular needle. Under direct visualization with fluoroscopy, using a 22-gauge 3-1/2-inch spinal needle, the needle was advanced via the skin through the sacral hiatus. The tip of the needle was passed through the sacrococcygeal ligament and advanced to approximately S4 area. After negative aspiration of blood or CSF, a total of 3 mL of contrast was injected to confirm correct placement of the needle as well as cephalad spread. The spread was followed to approximately L5 area. After confirmation on AP as well as lateral view and repeated negative aspiration, a total of 15 mL of preservative-free 0.125% Marcaine with 80 mg of Depo-Medrol was injected easily. The needle was then removed intact. The patient experienced no sign or symptoms of intrathecal or intravascular injection. The patient experienced no paresthesia. The procedure was completed without any apparent difficulty or any complications. The patient appeared to tolerate it well. ASSESSMENT AND PLAN: This is a 54-year-old female with lumbosacral radiculopathy, lumbosacral degenerative disc disease, lumbosacral spinal stenosis, status post diagnostic/therapeutic caudal epidural steroid injection under fluoroscopic guidance, patient will continue her current medications, patient will follow-up in approximately 2 weeks for reevaluation. Surgical Findings: 0 Complications Complications: No Admit VTE Documentation VTE Present on Admission: No VTE Mechan Device Prophylaxis: None VTE Pharm Prophylaxis ordered?: No
== END 2025-05-22 09:43 | disposition home or self-care (01) ==
LOC: SDC 08:11 → AC 08:12
PROVIDERS: PCP Family Medicine; Referring Provider Anesthesiology Pain Medicine; Visit Provider Anesthesiology Pain Medicine
PROC: 3E0S3BZ Introduction of Anesthetic Agent into Epidural Space, Percutaneous Approach (ICD-10-PCS; CPT 62282; principal; 2025-05-22 09:25)
DX: M51.17 Intervertebral disc disorders with radiculopathy, lumbosacral region (principal); M48.07 Spinal stenosis, lumbosacral region; F32.A Depression, unspecified; F41.9 Anxiety disorder, unspecified; K21.9 Gastro-esophageal reflux disease without esophagitis; E66.9 Obesity, unspecified; G44.89 Other headache syndrome; M41.9 Scoliosis, unspecified; M46.96 Unspecified inflammatory spondylopathy, lumbar region; G90.59 Complex regional pain syndrome I of other specified site; Z87.19 Personal history of other diseases of the digestive system; Z68.37 Body mass index [BMI] 37.0-37.9, adult; Z79.891 Long term (current) use of opiate analgesic; Z79.899 Other long term (current) drug therapy
CPT/HCPCS: 62323; 64483; 77003; J2405

== ENCOUNTER 2025-06-16 05:18 | Day surgery (SDC) | payer OTHER, SELFPAY ==
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
[2025-06-16] VITALS (8 sets, daily range): BP systolic 91–101; BP diastolic 54–75; PULSE 70–89; RESP 16; TEMP 36.1–36.4; O2SAT 93–99; BMI 37.0
--- OUTSIDE RECORDS SUMMARY | 2025-06-16 05:21 | XMS RPT_ITS | CCD ---
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 Hemoglobin (Bld) [Mass/Vol] 10.9 g/dL Low 12.0-15.0 [facility] Comment on above: Performed By: #### L 100.0500, L500.2500 #### [facility] [address] [place], [address] IG% 0.300 Normal 0.0-0.9 [facility] Comment on above: Result Comment: IG% - Immature Granulocytes (promyelocytes, myelocytes and metamyelocytes) > 1% indicates that a LEFT SHIFT is Present. Performed By: #### L 100.0500, L500.2500 #### [facility] [address] [place], [address] Lymphocytes/100 WBC (Bld) 18.0 % Low 19-41 [facility] Comment on above: Performed By: #### L 100.0500, L500.2500 #### [facility] [address] [place], [address] MCH (RBC) [Entitic mass] 30.3 pg Normal 27.0-32.0 [facility] Comment on above: Performed By: #### L 100.0500, L500.2500 #### [facility] [address] [place], [address] MCHC (RBC) [Mass/Vol] 33.4 g/dL Normal 32-36 [facility] Comment on above: Performed By: #### L 100.0500, L500.2500 #### [facility] [address] [place], [address] MCV (RBC) [Entitic vol] 90.6 fL Normal 81-99 [facility] Comment on above: Performed By: #### L 100.0500, L500.2500 #### [facility] [address] [place], [address] Monocytes/100 WBC (Bld) 6.8 % Normal 0-10 [facility] Comment on above: Performed By: #### L 100.0500, L500.2500 #### [facility] [address] [place], [address] Neutrophils/100 WBC (Bld) 70.8 % High 47-70 [facility] Comment on above: Performed By: #### L 100.0500, L500.2500 #### [facility] [address] [place], [address] Nucleated RBC (Bld) [#/Vol] 0 10*3/uL Normal 0-5 [facility] Comment on above: Performed By: #### L 100.0500, L500.2500 #### [facility] [address] [place], [address] Platelet mean volume (Bld) [Entitic vol] 10.6 fL Normal 6.2-12.0 [facility] Comment on above: Performed By: #### L 100.0500, L500.2500 #### [facility] [address] [place], [address] Platelets (Bld) [#/Vol] 196 10*3/uL Normal 150-450 [facility] Comment on above: Performed By: #### L 100.0500, L500.2500 #### [facility] [address] [place], [address] RBC (Bld) [#/Vol] 3.60 10*6/uL Low 4.2-5.4 [facility] Comment on above: Performed By: #### L 100.0500, L500.2500 #### [facility] [address] [place], [address] RDW SD 44.0 fl High 35.1-43.9 [facility] Comment on above: Performed By: #### L 100.0500, L500.2500 #### [facility] [address] [place], [address] WBC (Bld) [#/Vol] 6.9 10*3/uL Normal 4.4-11.0 [facility] Comment on above: Performed By: #### L 100.0500, L500.2500 #### [facility] [address] [place], [address] Carbon dioxide, total [Moles /volume] in Central venous bloodOrdered By: Bry Dominguez on 03-28-2025 CO2 [Moles/Vol] 25.0 mmol/L 21.0-32.0 [facility] Chloride assayOrdered By: Dannie Dominguez on 03-28-2025 Chloride [Moles/Vol] 110 mmol/L High 98-108 [facility] Eosinophil percentageOrdered By: Bry Dominguez on 03-28-2025 Eosinophils/100 WBC (Bld) 3.5 % 0-5 [facility] Erythrocyte distribution wid th ratioOrdered By: Bry Dominguez on 03-28-2025 Erythrocyte distribution width (RBC) [Ratio] 13.2 % 11.6-14.6 [facility] Erythrocyte distribution wid th standard deviationOrdered By: Bry Dominguez on 03-28-2025 Erythrocyte distribution width (RBC) [Ratio] 44.0 fl High 35.1-43.9 [facility] Glomerular filtration rate ( GFR) estimation/1.73 sq m using serum, plasma, or whole bOrdered By: Bry Dominguez on 03-28-2025 GFR/1.73 sq M.predicted among non-blacks MDRD (S/P/Bld) [Vol rate/Area] 105 mL/min/{1.73_m2} >60 [facility] Comment on above: mL/min/1.73m2 CKD-EP I Creatinine Equation (2020) Hematocrit Auto (Bld) [Volum e fraction]Ordered By: Bry Dominguez on 03-28-2025 Hematocrit (Bld) [Volume fraction] 32.6 % Low 37-47 [facility] Hemoglobin measurementOrdere d By: Bry Dominguez on 03-28-2025 Hemoglobin (Bld) [Mass/Vol] 10.9 g/dL Low 12.0-15.0 [facility] Immature granulocytes/100 WB C Auto (Bld)Ordered By: Bry Dominguez on 03-28-2025 Immature granulocytes/100 WBC (Bld) 0.300 % 0.0-0.9 [facility] Comment on above: IG% - Immature Granu locytes (promyelocytes, myelocytes and metamyelocytes) > 1% indicates that a LEFT SHIFT is Present. MCV (mean corpuscular volume ) determinationOrdered By: Bry Dominguez on 03-28-2025 MCV (RBC) [Entitic vol] 90.6 fL 81-99 [facility] Mean corpuscular hemoglobin (MCH) determinationOrdered By: Bry Domignuez on 03-28-2025 MCH (RBC) [Entitic mass] 30.3 pg 27.0-32.0 [facility] Mean corpuscular hemoglobin concentration (MCHC) determinationOrdered By: Bry Dominguez on 03-28-2025 MCHC (RBC) [Mass/Vol] 33.4 g/dL 32-36 [facility] Mean platelet volume determi nationOrdered By: Bry Dominguez on 03-28-2025 Platelet mean volume (Bld) [Entitic vol] 10.6 fL 6.2-12.0 [facility] Monocyte percentageOrdered B y: Bry Dominguez on 03-28-2025 Monocytes/100 WBC (Bld) 6.8 % 0-10 [facility] Neutrophil percentageOrdered By: Bry Dominguez on 03-28-2025 Neutrophils/100 WBC (Bld) 70.8 % High 47-70 [facility] Nucleated red blood cell per centageOrdered By: Bry Dominguez on 03-28-2025 Nucleated RBC/100 WBC (Bld) [Ratio] 0 % 0-5 [facility] Platelet countOrdered By: Dannie Dominguez on 03-28-2025 Platelets (Bld) [#/Vol] 196 10*3/uL 150-450 [facility] Potassium measurement (mass/ volume)Ordered By: Bry Dominguez on 03-28-2025 Potassium (Unsp spec) [Mass/Vol] 3.3 mmol/L 3.3-5.1 [facility] RBC Auto (Bld) [#/Vol]Ordere d By: Bry Dominguez on 03-28-2025 RBC (Bld) [#/Vol] 3.60 10*6/uL Low 4.2-5.4 [facility] Serum creatinine measurement (mass/volume)Ordered By: Bry Dominguez on 03-28-2025 Creatinine [Mass/Vol] 0.67 mg/dL Low 0.70-1.20 [facility] Serum glucose measurement (m ass/volume)Ordered By: Bry Dominguez on 03-28-2025 Glucose [Mass/Vol] 117 mg/dL High 70-99 [facility] Serum or plasma calcium elizabet urement (mass/volume)Ordered By: Bry Dominguez on 03-28-2025 Calcium [Mass/Vol] 8.7 mg/dL 7.6-11.0 [facility] Serum or plasma urea nitroge n measurement (mass/volume)Ordered By: Bry Dominguez on 03-28-2025 Urea nitrogen [Mass/Vol] 3 mg/dL Low 4-19 [facility] Sodium levelOrdered By: Bry Dominguez on 03-28-2025 Sodium [Moles/Vol] 143 mmol/L 133-145 [facility] White blood cell (WBC) count Ordered By: Bry Dominguez on 03-28-2025 WBC (Bld) [#/Vol] 6.9 10*3/uL 4.4-11.0 [facility] Basic Metabolic Profile (BMP )on 03-27-2025 BUN/CRE 6.5 RATIO Low 10-20 [facility] Comment on above: Performed By: #### L 500.2500, L100.0100 ####[facility] [address] [place], [address] Calcium [Mass/Vol] 8.4 mg/dL Normal 7.6-11.0 [facility] Comment on above: Performed By: #### L 500.2500, L100.0100 ####[facility] [address] [place], [address] Chloride [Moles/Vol] 109 mmol/L High 98-108 [facility] Comment on above: Performed By: #### L 500.2500, L100.0100 ####[facility] [address] [place], [address] CO2 [Moles/Vol] 23.2 mmol/L Normal 21.0-32.0 [facility] Comment on above: Performed By: #### L 500.2500, L100.0100 ####[facility] [address] [place], [address] Creatinine [Mass/Vol] 0.71 mg/dL Normal 0.70-1.20 [facility] Comment on above: Performed By: #### L 500.2500, L100.0100 ####[facility] [address] [place], [address] ECRCL 105.79 ml/min Normal 50-250 [facility] Comment on above: Performed By: #### L 500.2500, L100.0100 ####[facility] [address] [place], [address] GAP 10 Normal 5-15 [facility] Comment on above: Performed By: #### L 500.2500, L100.0100 ####[facility] [address] [place], [address] GFR/1.73 sq M.predicted among non-blacks MDRD (S/P/Bld) [Vol rate/Area] 102 mL/min/{1.73_m2} Normal >60 [facility] Comment on above: Result Comment: mL/m in/1.73m2 CKD-EPI Creatinine Equation (2020) Performed By: #### L 500.2500, L100.0100 ####[facility] [address] [place], [address] Glucose [Mass/Vol] 91 mg/dL Normal 70-99 [facility] Comment on above: Performed By: #### L 500.2500, L100.0100 ####[facility] [address] [place], [address] Potassium [Moles/Vol] 2.9 mmol/L Low 3.3-5.1 [facility] Comment on above: Performed By: #### L 500.2500, L100.0100 ####[facility] [address] [place], [address] Sodium [Moles/Vol] 142 mmol/L Normal 133-145 [facility] Comment on above: Performed By: #### L 500.2500, L100.0100 ####[facility] [address] [place], [address] Urea nitrogen [Mass/Vol] 5 mg/dL Normal 4-19 [facility] Comment on above: Performed By: #### L 500.2500, L100.0100 ####[facility] [address] [place], [address] CBC W/Diff, Automatedon -11 07-2024 Absolute Lymph 1.85 X10 3/uL Normal 0.83-4.51 [facility] Comment on above: Performed By: #### L 500.2500, L100.0100 ####[facility] [address] [place], [address] Absolute Neut 7.5 X10 3/uL Normal 2.0-7.7 [facility] Comment on above: Performed By: #### L 500.2500, L100.0100 ####[facility] [address] [place], [address] Basophils/100 WBC (Bld) 0.4 % Normal 0-1 [facility] Comment on above: Performed By: #### L 500.2500, L100.0100 ####[facility] [address] [place], [address] Eosinophils/100 WBC (Bld) 2.1 % Normal 0-5 [facility] Comment on above: Performed By: #### L 500.2500, L100.0100 ####[facility] [address] [place], [address] Erythrocyte distribution width (RBC) [Ratio] 13.0 % Normal 11.6-14.6 [facility] Comment on above: Performed By: #### L 500.2500, L100.0100 ####[facility] [address] [place], [address] Hematocrit (Bld) [Volume fraction] 32.4 % Low 37-47 [facility] Comment on above: Performed By: #### L 500.2500, L100.0100 ####[facility] [address] [place], [address] Hemoglobin (Bld) [Mass/Vol] 11.0 g/dL Low 12.0-15.0 [facility] Comment on above: Performed By: #### L 500.2500, L100.0100 ####[facility] [address] [place], [address] IG% 0.300 Normal 0.0-0.9 [facility] Comment on above: Result Comment: IG% - Immature Granulocytes (promyelocytes, myelocytes and metamyelocytes) > 1% indicates that a LEFT SHIFT is Present. Performed By: #### L 500.2500, L100.0100 ####[facility] [address] [place], [address] Lymphocytes/100 WBC (Bld) 18.2 % Low 19-41 [facility] Comment on above: Performed By: #### L 500.2500, L100.0100 ####[facility] [address] [place], [address] MCH (RBC) [Entitic mass] 30.5 pg Normal 27.0-32.0 [facility] Comment on above: Performed By: #### L 500.2500, L100.0100 ####[facility] [address] [place], [address] MCHC (RBC) [Mass/Vol] 34.0 g/dL Normal 32-36 [facility] Comment on above: Performed By: #### L 500.2500, L100.0100 ####[facility] [address] [place], [address] MCV (RBC) [Entitic vol] 89.8 fL Normal 81-99 [facility] Comment on above: Performed By: #### L 500.2500, L100.0100 ####[facility] [address] [place], [address] Monocytes/100 WBC (Bld) 5.6 % Normal 0-10 [facility] Comment on above: Performed By: #### L 500.2500, L100.0100 ####[facility] [address] [place], [address] Neutrophils/100 WBC (Bld) 73.4 % High 47-70 [facility] Comment on above: Performed By: #### L 500.2500, L100.0100 ####[facility] [address] [place], [address] Nucleated RBC (Bld) [#/Vol] 0 10*3/uL Normal 0-5 [facility] Comment on above: Performed By: #### L 500.2500, L100.0100 ####[facility] [address] [place], [address] Platelet mean volume (Bld) [Entitic vol] 10.9 fL Normal 6.2-12.0 [facility] Comment on above: Performed By: #### L 500.2500, L100.0100 ####[facility] [address] [place], [address] Platelets (Bld) [#/Vol] 178 10*3/uL Normal 150-450 [facility] Comment on above: Performed By: #### L 500.2500, L100.0100 ####[facility] [address] [place], [address] RBC (Bld) [#/Vol] 3.61 10*6/uL Low 4.2-5.4 [facility] Comment on above: Performed By: #### L 500.2500, L100.0100 ####[facility] [address] [place], [address] RDW SD 43.3 fl Normal 35.1-43.9 [facility] Comment on above: Performed By: #### L 500.2500, L100.0100 ####[facility] [address] [place], [address] WBC (Bld) [#/Vol] 10.2 10*3/uL Normal 4.4-11.0 [facility] Comment on above: Performed By: #### L 500.2500, L100.0100 ####[facility] [address] [place], [address] Basic Metabolic Profile (BMP )on 03-26-2025 BUN/CRE 7.0 RATIO Low 10-20 [facility] Comment on above: Performed By: #### L 100.0100, L500.2500 #### [facility] [address] [place], [address] Calcium [Mass/Vol] 8.3 mg/dL Normal 7.6-11.0 [facility] Comment on above: Performed By: #### L 100.0100, L500.2500 #### [facility] [address] [place], [address] Chloride [Moles/Vol] 109 mmol/L High 98-108 [facility] Comment on above: Performed By: #### L 100.0100, L500.2500 #### [facility] [address] [place], [address] CO2 [Moles/Vol] 21.1 mmol/L Normal 21.0-32.0 [facility] Comment on above: Performed By: #### L 100.0100, L500.2500 #### [facility] [address] [place], [address] Creatinine [Mass/Vol] 0.72 mg/dL Normal 0.70-1.20 [facility] Comment on above: Performed By: #### L 100.0100, L500.2500 #### [facility] [address] [place], [address] ECRCL 104.32 ml/min Normal 50-250 [facility] Comment on above: Performed By: #### L 100.0100, L500.2500 #### [facility] [address] [place], [address] GAP 9 Normal 5-15 [facility] Comment on above: Performed By: #### L 100.0100, L500.2500 #### [facility] [address] [place], [address] GFR/1.73 sq M.predicted among non-blacks MDRD (S/P/Bld) [Vol rate/Area] 100 mL/min/{1.73_m2} Normal >60 [facility] Comment on above: Result Comment: mL/m in/1.73m2 CKD-EPI Creatinine Equation (2020) Performed By: #### L 100.0100, L500.2500 #### [facility] [address] [place], [address] Glucose [Mass/Vol] 106 mg/dL High 70-99 [facility] Comment on above: Performed By: #### L 100.0100, L500.2500 #### [facility] [address] [place], [address] Potassium [Moles/Vol] 3.1 mmol/L Low 3.3-5.1 [facility] Comment on above: Performed By: #### L 100.0100, L500.2500 #### [facility] [address] [place], [address] Sodium [Moles/Vol] 140 mmol/L Normal 133-145 [facility] Comment on above: Performed By: #### L 100.0100, L500.2500 #### [facility] [address] [place], [address] Urea nitrogen [Mass/Vol] 5 mg/dL Normal 4-19 [facility] Comment on above: Performed By: #### L 100.0100, L500.2500 #### [facility] [address] [place], [address] CBC W/Diff, Automatedon 03-06-2024 Absolute Lymph 1.92 X10 3/uL Normal 0.83-4.51 [facility] Comment on above: Performed By: #### L 100.0100, L500.2500 #### [facility] [address] [place], [address] Absolute Neut 8.4 X10 3/uL High 2.0-7.7 [facility] Comment on above: Performed By: #### L 100.0100, L500.2500 #### [facility] [address] [place], [address] Basophils/100 WBC (Bld) 0.4 % Normal 0-1 [facility] Comment on above: Performed By: #### L 100.0100, L500.2500 #### [facility] [address] [place], [address] Eosinophils/100 WBC (Bld) 0.9 % Normal 0-5 [facility] Comment on above: Performed By: #### L 100.0100, L500.2500 #### [facility] [address] [place], [address] Erythrocyte distribution width (RBC) [Ratio] 13.5 % Normal 11.6-14.6 [facility] Comment on above: Performed By: #### L 100.0100, L500.2500 #### [facility] [address] [place], [address] Hematocrit (Bld) [Volume fraction] 32.6 % Low 37-47 [facility] Comment on above: Performed By: #### L 100.0100, L500.2500 #### [facility] [address] [place], [address] Hemoglobin (Bld) [Mass/Vol] 11.0 g/dL Low 12.0-15.0 [facility] Comment on above: Performed By: #### L 100.0100, L500.2500 #### [facility] [address] [place], [address] IG% 0.400 Normal 0.0-0.9 [facility] Comment on above: Result Comment: IG% - Immature Granulocytes (promyelocytes, myelocytes and metamyelocytes) > 1% indicates that a LEFT SHIFT is Present. Performed By: #### L 100.0100, L500.2500 #### [facility] [address] [place], [address] Lymphocytes/100 WBC (Bld) 17.2 % Low 19-41 [facility] Comment on above: Performed By: #### L 100.0100, L500.2500 #### [facility] [address] [place], [address] MCH (RBC) [Entitic mass] 30.8 pg Normal 27.0-32.0 [facility] Comment on above: Performed By: #### L 100.0100, L500.2500 #### [facility] [address] [place], [address] MCHC (RBC) [Mass/Vol] 33.7 g/dL Normal 32-36 [facility] Comment on above: Performed By: #### L 100.0100, L500.2500 #### [facility] [address] [place], [address] MCV (RBC) [Entitic vol] 91.3 fL Normal 81-99 [facility] Comment on above: Performed By: #### L 100.0100, L500.2500 #### [facility] [address] [place], [address] Monocytes/100 WBC (Bld) 6.0 % Normal 0-10 [facility] Comment on above: Performed By: #### L 100.0100, L500.2500 #### [facility] [address] [place], [address] Neutrophils/100 WBC (Bld) 75.1 % High 47-70 [facility] Comment on above: Performed By: #### L 100.0100, L500.2500 #### [facility] [address] [place], [address] Nucleated RBC (Bld) [#/Vol] 0 10*3/uL Normal 0-5 [facility] Comment on above: Performed By: #### L 100.0100, L500.2500 #### [facility] [address] [place], [address] Platelet mean volume (Bld) [Entitic vol] 11.0 fL Normal 6.2-12.0 [facility] Comment on above: Performed By: #### L 100.0100, L500.2500 #### [facility] [address] [place], [address] Platelets (Bld) [#/Vol] 160 10*3/uL Normal 150-450 [facility] Comment on above: Performed By: #### L 100.0100, L500.2500 #### [facility] [address] [place], [address] RBC (Bld) [#/Vol] 3.57 10*6/uL Low 4.2-5.4 [facility] Comment on above: Performed By: #### L 100.0100, L500.2500 #### [facility] [address] [place], [address] RDW SD 45.5 fl High 35.1-43.9 [facility] Comment on above: Performed By: #### L 100.0100, L500.2500 #### [facility] [address] [place], [address] WBC (Bld) [#/Vol] 11.2 10*3/uL High 4.4-11.0 [facility] Comment on above: Performed By: #### L 100.0100, L500.2500 #### [facility] [address] [place], [address] Basic Metabolic Profile (BMP )on 03-25-2025 BUN/CRE 11.3 RATIO Normal 10-20 [facility] Comment on above: Performed By: #### L 500.2500 #### [facility] [address] [place], [address] Calcium [Mass/Vol] 8.1 mg/dL Normal 7.6-11.0 [facility] Comment on above: Performed By: #### L 500.2500 #### [facility] [address] [place], [address] Chloride [Moles/Vol] 112 mmol/L High 98-108 [facility] Comment on above: Performed By: #### L 500.2500 #### [facility] [address] [place], [address] CO2 [Moles/Vol] 18.3 mmol/L Low 21.0-32.0 [facility] Comment on above: Performed By: #### L 500.2500 #### [facility] [address] [place], [address] Creatinine [Mass/Vol] 0.75 mg/dL Normal 0.70-1.20 [facility] Comment on above: Performed By: #### L 500.2500 #### [facility] [address] [place], [address] ECRCL 100.15 ml/min Normal 50-250 [facility] Comment on above: Performed By: #### L 500.2500 #### [facility] [address] [place], [address] GAP 12 Normal 5-15 [facility] Comment on above: Performed By: #### L 500.2500 #### [facility] [address] [place], [address] GFR/1.73 sq M.predicted among non-blacks MDRD (S/P/Bld) [Vol rate/Area] 96 mL/min/{1.73_m2} Normal >60 [facility] Comment on above: Result Comment: mL/m in/1.73m2 CKD-EPI Creatinine Equation (2020) Performed By: #### L 500.2500 #### [facility] [address] [place], [address] Glucose [Mass/Vol] 124 mg/dL High 70-99 [facility] Comment on above: Performed By: #### L 500.2500 #### [facility] [address] [place], [address] Potassium [Moles/Vol] 3.2 mmol/L Low 3.3-5.1 [facility] Comment on above: Performed By: #### L 500.2500 #### [facility] [address] [place], [address] Sodium [Moles/Vol] 142 mmol/L Normal 133-145 [facility] Comment on above: Performed By: #### L 500.2500 #### [facility] [address] [place], [address] Urea nitrogen [Mass/Vol] 9 mg/dL Normal 4-19 [facility] Comment on above: Performed By: #### L 500.2500 #### [facility] [address] [place], [address] CBC W/Diff, Automatedon 06-2 -2024 Absolute Lymph 1.22 X10 3/uL Normal 0.83-4.51 [facility] Comment on above: Performed By: #### L 100.0500, L500.2500 #### [facility] [address] [place], [address] Absolute Neut 12.1 X10 3/uL High 2.0-7.7 [facility] Comment on above: Performed By: #### L 100.0500, L500.2500 #### [facility] [address] [place], [address] Basophils/100 WBC (Bld) 0.1 % Normal 0-1 [facility] Comment on above: Performed By: #### L 100.0500, L500.2500 #### [facility] [address] [place], [address] Eosinophils/100 WBC (Bld) 0.0 % Normal 0-5 [facility] Comment on above: Performed By: #### L 100.0500, L500.2500 #### [facility] [address] [place], [address] Erythrocyte distribution width (RBC) [Ratio] 13.3 % Normal 11.6-14.6 [facility] Comment on above: Performed By: #### L 100.0500, L500.2500 #### [facility] [address] [place], [address] Hematocrit (Bld) [Volume fraction] 35.4 % Low 37-47 [facility] Comment on above: Performed By: #### L 100.0500, L500.2500 #### [facility] [address] [place], [address] Hemoglobin (Bld) [Mass/Vol] 11.9 g/dL Low 12.0-15.0 [facility] Comment on above: Performed By: #### L 100.0500, L500.2500 #### [facility] [address] [place], [address] IG% 0.200 Normal 0.0-0.9 [facility] Comment on above: Result Comment: IG% - Immature Granulocytes (promyelocytes, myelocytes and metamyelocytes) > 1% indicates that a LEFT SHIFT is Present. Performed By: #### L 100.0500, L500.2500 #### [facility] [address] [place], [address] Lymphocytes/100 WBC (Bld) 8.6 % Low 19-41 [facility] Comment on above: Performed By: #### L 100.0500, L500.2500 #### [facility] [address] [place], [address] MCH (RBC) [Entitic mass] 30.5 pg Normal 27.0-32.0 [facility] Comment on above: Performed By: #### L 100.0500, L500.2500 #### [facility] [address] [place], [address] MCHC (RBC) [Mass/Vol] 33.6 g/dL Normal 32-36 [facility] Comment on above: Performed By: #### L 100.0500, L500.2500 #### [facility] [address] [place], [address] MCV (RBC) [Entitic vol] 90.8 fL Normal 81-99 [facility] Comment on above: Performed By: #### L 100.0500, L500.2500 #### [facility] [address] [place], [address] Monocytes/100 WBC (Bld) 5.8 % Normal 0-10 [facility] Comment on above: Performed By: #### L 100.0500, L500.2500 #### [facility] [address] [facility], [address] Neutrophils/100 WBC (Bld) 85.3 % High 47-70 [facility] Comment on above: Performed By: #### L 100.0500, L500.2500 #### [facility] [address] [place], [address] Nucleated RBC (Bld) [#/Vol] 0 10*3/uL Normal 0-5 [facility] Comment on above: Performed By: #### L 100.0500, L500.2500 #### [facility] [address] [place], [address] Platelet mean volume (Bld) [Entitic vol] 12.0 fL Normal 6.2-12.0 [facility] Comment on above: Performed By: #### L 100.0500, L500.2500 #### [facility] [address] [place], [address] Platelets (Bld) [#/Vol] 181 10*3/uL Normal 150-450 [facility] Comment on above: Performed By: #### L 100.0500, L500.2500 #### [facility] [address] [place], [address] RBC (Bld) [#/Vol] 3.90 10*6/uL Low 4.2-5.4 [facility] Comment on above: Performed By: #### L 100.0500, L500.2500 #### [facility] [address] [place], [address] RDW SD 44.0 fl High 35.1-43.9 [facility] Comment on above: Performed By: #### L 100.0500, L500.2500 #### [facility] [address] [place], [address] WBC (Bld) [#/Vol] 14.2 10*3/uL High 4.4-11.0 [facility] Comment on above: Performed By: #### L 100.0500, L500.2500 #### [facility] [address] [place], [address] HH, Hemoglobin AND Hematocri ton 03-25-2025 Hematocrit (Bld) [Volume fraction] 34.9 % Low 37-47 [facility] Comment on above: Performed By: #### L 100.0600 #### [facility] [address] [place], [address] Hemoglobin (Bld) [Mass/Vol] 11.7 g/dL Low 12.0-15.0 [facility] Comment on above: Performed By: #### L 100.0600 #### [facility] [address] [place], [address] Lactic Acidon 03-25-2025 Lactate [Moles/Vol] mmol/L Normal 0.0-2.0 [facility] Comment on above: Order Comment: Comme nts: if result >2, system reflex orders 2nd test @ 4hrs Y Performed By: #### L 503.6005, L501.9520 #### [facility] [address] [place], [address] Lactic acid measurementOrder ed By: Jason Narayanan on 03-25-2025 Lactate [Moles/Vol] mmol/L 0.0-2.0 [facility] MR/CON.PCM.GIon 03-25-2025 MR/CON.PCM.GI [facility] Medical Records Department [address] [place] [address] Consultation - GI 03/25/25 1422 MR#: [id number] Acct: [id number] Name: BRISSA STEELE Rep #: [id number] : 1970 54 From: Chele Manriquez DO PCP: Dr. Tequila Renee MD Status:ADM IN Location: [place] [id number] ADDENDUM by Chele Manriquez DO on 03/25/25 at 1434 Multi Select Codes Visit Charges Visit Charges: 52717 Init Hosp L3 03/25/25 1434 Cosigner Signature [...] she does not try to move much. [facility] Medical History Chronic pain Pain Nausea [...] mg PO DAILY 1 dose #1 TAB 2 Unknown Rx metronidazole 500 mg tablet 500 [...] safe at home: Yes additional social history: Zispyad-Llnz-Ctieyss Comfort Control Patient is [employer] at [facility] ROS ROS Narrative Review of Systems: [...] focal neuro (more content not included)... Normal [facility] TSH DL <= 0.005 mIU/L QnOrde red By: Jason Narayanan on 03-25-2025 TSH Qn 0.364 uIU/mL 0.300-4.200 [facility] Thyroid Stim Hormone (TSH)on 03-25-2025 TSH 0.364 uIU/mL Normal 0.300-4.200 [facility] Comment on above: Performed By: #### L 503.6005, L501.9520 ####[facility] [address] [place], [address] Type AND Screenon 03-25-2025 Ab SCREEN GEL Negative Normal [facility] Comment on above: Order Comment: Has p t arrived? YHGI Performed By: #### B TS ####[facility] [address] [place], [place], [address] Abdomen/Pelvis W IV Cont ONL Yon 03-24-2025 Abdomen/Pelvis W IV Cont ONLY [facility] Imaging Services [address] [place], [place] [address] Abdomen/Pelvis W IV Cont ONLY MR#: [id number] Acct: [id number] Name: BRISSA STEELE Rep #: [id number] : 1970 F 54 From: Alex [place] MD PCP: Dr. Tequila Renee MD Status: [facility] ER Study: Abdomen/Pelvis W IV Cont ONLY Date of Exam: Exam# [id number] Ordering Dr: Bry Toribio DO PROCEDURE: ABDOMEN/PELVIS [...] obstruction. Lung bases are clear Reading Location: [facility] [address] CC: Dr. Bry Toribio DO; Dr. Tequila Renee MD Capacity Management Specialist: Signed Normal [facility] Absolute lymphocyte countOrd ered By: Bry Toribio on 03-24-2025 Lymphocytes Auto (Unsp spec) [#/Vol] 1.01 10*3/uL 0.83-4.51 [facility] Absolute neutrophil countOrd ered By: Bry Toribio on 03-24-2025 Neutrophils (Bld) [#/Vol] 13.5 10*3/uL High 2.0-7.7 [facility] Activated partial thrombopla stin time (aPTT) in platelet poor plasma by coagulation aOrdered By: Bry Toribio on 03-24-2025 aPTT Coag (PPP) [Time] 32.9 s 24.1-36.2 [facility] Anion gap in Serum or Plasma Ordered By: Bry Toribio on 03-24-2025 Anion gap [Moles/Vol] 14 mmol/L 5-15 [facility] Automated lymphocyte count a s percentage of total leukocytesOrdered By: Bry Toribio on 03-24-2025 Lymphocytes/100 WBC Auto (Unsp spec) 6.7 % Low 19-41 [facility] BUN/creatinine ratioOrdered By: Bry Toribio on 03-24-2025 Urea nitrogen/Creatinine [Mass ratio] 15.0 mg/mg 10-20 [facility] Basophil percentageOrdered B y: Bry Toribio on 03-24-2025 Basophils/100 WBC (Bld) 0.1 % 0-1 [facility] Bilirubin Test strip Ql (U)O rdered By: Bry Toribio on 03-24-2025 Bilirubin Ql (U) Negative Negative [facility] Bilirubin, totalOrdered By: Bry Toribio on 03-24-2025 Bilirubin [Mass/Vol] 0.47 mg/dL 0.00-1.30 [facility] Blood cultureOrdered By: Cici Toribio on 03-24-2025 Bacteria identified Cx Nom (Bld) No growth in 5 days. [facility] Bacteria identified Cx Nom (Bld) No growth in 5 days. [facility] CBC W/Diff, Automatedon 03-06 Absolute Lymph 1.01 X10 3/uL Normal 0.83-4.51 [facility] Comment on above: Performed By: #### L 100.0100, L500.2500 #### [facility] [address] [place], [address] Absolute Neut 13.5 X10 3/uL High 2.0-7.7 [facility] Comment on above: Performed By: #### L 100.0100, L500.2500 #### [facility] [address] [place], [address] Basophils/100 WBC (Bld) 0.1 % Normal 0-1 [facility] Comment on above: Performed By: #### L 100.0100, L500.2500 #### [facility] [address] [place], [address] Eosinophils/100 WBC (Bld) 0.0 % Normal 0-5 [facility] Comment on above: Performed By: #### L 100.0100, L500.2500 #### [facility] [address] [place], [address] Erythrocyte distribution width (RBC) [Ratio] 13.0 % Normal 11.6-14.6 [facility] Comment on above: Performed By: #### L 100.0100, L500.2500 #### [facility] [address] [place], [address] Hematocrit (Bld) [Volume fraction] 43.2 % Normal 37-47 [facility] Comment on above: Performed By: #### L 100.0100, L500.2500 #### [facility] [address] [place], [address] Hemoglobin (Bld) [Mass/Vol] 14.8 g/dL Normal 12.0-15.0 [facility] Comment on above: Performed By: #### L 100.0100, L500.2500 #### [facility] [address] [place], [address] IG% 0.500 Normal 0.0-0.9 [facility] Comment on above: Result Comment: IG% - Immature Granulocytes (promyelocytes, myelocytes and metamyelocytes) > 1% indicates that a LEFT SHIFT is Present. Performed By: #### L 100.0100, L500.2500 #### [facility] [address] [place], [address] Lymphocytes/100 WBC (Bld) 6.7 % Low 19-41 [facility] Comment on above: Performed By: #### L 100.0100, L500.2500 #### [facility] [address] [place], [address] MCH (RBC) [Entitic mass] 30.5 pg Normal 27.0-32.0 [facility] Comment on above: Performed By: #### L 100.0100, L500.2500 #### [facility] [address] [place], [address] MCHC (RBC) [Mass/Vol] 34.3 g/dL Normal 32-36 [facility] Comment on above: Performed By: #### L 100.0100, L500.2500 #### [facility] [address] [place], [address] MCV (RBC) [Entitic vol] 88.9 fL Normal 81-99 [facility] Comment on above: Performed By: #### L 100.0100, L500.2500 #### [facility] [address] [place], [address] Monocytes/100 WBC (Bld) 3.4 % Normal 0-10 [facility] Comment on above: Performed By: #### L 100.0100, L500.2500 #### [facility] [address] [place], [address] Neutrophils/100 WBC (Bld) 89.3 % High 47-70 [facility] Comment on above: Performed By: #### L 100.0100, L500.2500 #### [facility] [address] [place], [address] Nucleated RBC (Bld) [#/Vol] 0 10*3/uL Normal 0-5 [facility] Comment on above: Performed By: #### L 100.0100, L500.2500 #### [facility] [address] [place], [address] Platelet mean volume (Bld) [Entitic vol] 11.6 fL Normal 6.2-12.0 [facility] Comment on above: Performed By: #### L 100.0100, L500.2500 #### [facility] [address] [place], [address] Platelets (Bld) [#/Vol] 251 10*3/uL Normal 150-450 [facility] Comment on above: Performed By: #### L 100.0100, L500.2500 #### [facility] [address] [place], [address] RBC (Bld) [#/Vol] 4.86 10*6/uL Normal 4.2-5.4 [facility] Comment on above: Performed By: #### L 100.0100, L500.2500 #### [facility] [address] [place], [address] RDW SD 42.4 fl Normal 35.1-43.9 [facility] Comment on above: Performed By: #### L 100.0100, L500.2500 #### [facility] [address] [place], [address] WBC (Bld) [#/Vol] 15.1 10*3/uL High 4.4-11.0 [facility] Comment on above: Performed By: #### L 100.0100, L500.2500 #### [facility] [address] [place], [address] Carbon dioxide, total [Moles /volume] in Central venous bloodOrdered By: Bry Toribio on 03-24-2025 CO2 [Moles/Vol] 23.2 mmol/L 21.0-32.0 [facility] Chloride assayOrdered By: Dannie Toribio on 03-24-2025 Chloride [Moles/Vol] 105 mmol/L 98-108 [facility] Comprehensive Metabolic Prof ilon 03-24-2025 Albumin [Mass/Vol] 4.5 g/dL Normal 3.5-5.0 [facility] Comment on above: Performed By: #### L 100.0100, L500.2500 #### [facility] [address] [place], [address] Albumin/Globulin [Mass ratio] 1.6 {ratio} Normal 0.9-2.4 [facility] Comment on above: Performed By: #### L 100.0100, L500.2500 #### [facility] [address] [place], [address] ALK PHOS 106 U/L High 35-104 [facility] Comment on above: Performed By: #### L 100.0100, L500.2500 #### [facility] [address] [place], [address] ALT [Catalytic activity/Vol] 18 U/L Normal <=34 [facility] Comment on above: Performed By: #### L 100.0100, L500.2500 #### [facility] [address] [place], [address] AST [Catalytic activity/Vol] 21 U/L Normal <=31 [facility] Comment on above: Result Comment: Hemo lysis present, Results??could be affected. ?? Performed By: #### L 100.0100, L500.2500 #### [facility] [address] [place], [address] Bilirubin [Mass/Vol] 0.47 mg/dL Normal 0.00-1.30 [facility] Comment on above: Performed By: #### L 100.0100, L500.2500 #### [facility] [address] [place], [address] BUN/CRE 15.0 RATIO Normal 10-20 [facility] Comment on above: Performed By: #### L 100.0100, L500.2500 #### [facility] [address] [place], [address] Calcium [Mass/Vol] 10.1 mg/dL Normal 7.6-11.0 [facility] Comment on above: Performed By: #### L 100.0100, L500.2500 #### [facility] [address] [place], [address] Chloride [Moles/Vol] 105 mmol/L Normal 98-108 [facility] Comment on above: Performed By: #### L 100.0100, L500.2500 #### [facility] [address] [place], [address] CO2 [Moles/Vol] 23.2 mmol/L Normal 21.0-32.0 [facility] Comment on above: Performed By: #### L 100.0100, L500.2500 #### [facility] [address] [place], [address] Creatinine [Mass/Vol] 0.74 mg/dL Normal 0.70-1.20 [facility] Comment on above: Performed By: #### L 100.0100, L500.2500 #### [facility] [address] [place], [address] ECRCL 101.35 ml/min Normal 50-250 [facility] Comment on above: Performed By: #### L 100.0100, L500.2500 #### [facility] [address] [place], [address] GAP 14 Normal 5-15 [facility] Comment on above: Performed By: #### L 100.0100, L500.2500 #### [facility] [address] [place], [address] GFR/1.73 sq M.predicted among non-blacks MDRD (S/P/Bld) [Vol rate/Area] 98 mL/min/{1.73_m2} Normal >60 [facility] Comment on above: Result Comment: mL/m in/1.73m2 CKD-EPI Creatinine Equation (2020) Performed By: #### L 100.0100, L500.2500 #### [facility] [address] [place], [address] Globulin (S) [Mass/Vol] 2.8 g/dL Normal 2.2-4.2 [facility] Comment on above: Performed By: #### L 100.0100, L500.2500 #### [facility] [address] [place], [address] Glucose [Mass/Vol] 110 mg/dL High 70-99 [facility] Comment on above: Performed By: #### L 100.0100, L500.2500 #### [facility] [address] [place], [address] Potassium [Moles/Vol] 3.7 mmol/L Normal 3.3-5.1 [facility] Comment on above: Result Comment: Hemo lysis present, Results??could be affected. ?? Performed By: #### L 100.0100, L500.2500 #### [facility] [address] [place], [address] Sodium [Moles/Vol] 142 mmol/L Normal 133-145 [facility] Comment on above: Performed By: #### L 100.0100, L500.2500 #### [facility] [facility] [address] [place], [address] T PROT 7.3 g/dL Normal 5.9-8.4 [facility] Comment on above: Performed By: #### L 100.0100, L500.2500 #### [facility] [address] [place], [address] Urea nitrogen [Mass/Vol] 11 mg/dL Normal 4-19 [facility] Comment on above: Performed By: #### L 100.0100, L500.2500 #### [facility] [address] [place], [address] Emergency Department Summary on 03-24-2025 Emergency Department Summary [facility] Medical Records Department [address] [place] [address] Emergency Department Summary 03/24/25 MR#: [id number] Acct: [id number] Name: BRISSA STEELE Rep #: [id number] : 1970 54 From: Bry Toribio DO [...] any chest pain or shortness of breath. 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 Normal [facility] Eosinophil percentageOrdered By: Bry Toribio on 03-24-2025 Eosinophils/100 WBC (Bld) 0.0 % 0-5 [facility] Erythrocyte distribution wid th ratioOrdered By: Brypaul Toribio on 03-24-2025 Erythrocyte distribution width (RBC) [Ratio] 13.0 % 11.6-14.6 [facility] Erythrocyte distribution wid th standard deviationOrdered By: Bry Toribio on 03-24-2025 Erythrocyte distribution width (RBC) [Ratio] 42.4 fl 35.1-43.9 [facility] Glomerular filtration rate ( GFR) estimation/1.73 sq m using serum, plasma, or whole bOrdered By: Bry Toribio on 03-24-2025 GFR/1.73 sq M.predicted among non-blacks MDRD (S/P/Bld) [Vol rate/Area] 98 mL/min/{1.73_m2} >60 [facility] Comment on above: mL/min/1.73m2 CKD-EP I Creatinine Equation (2020) H AND P Exam - [facility] 03-24-2025 H&P Exam - Hospitalist [facility] Medical Records Department [address] [place] [address] H P Exam - Hospitalist 03/24/25 2347 MR#: [id number] Acct: [id number] Name: BRISSA STEELE Rep #: [id number] : 1970 54 From: Jason Watters DO PCP: Dr. Tequila Renee MD Status:ADM IN Location: [address] - General General Date of Admission: 03/25/25 [...] legs on prn naproxen who presents to [facility] ER complaining of Lower GI Bleed, [...] is expected to extend beyond 2 midnights. 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 Normal [facility] Hematocrit Auto (Bld) [Volum e fraction]Ordered By: Bry Toribio on 03-24-2025 Hematocrit (Bld) [Volume fraction] 43.2 % 37-47 [facility] Hemoglobin measurementOrdere d By: Bry Toribio on 03-24-2025 Hemoglobin (Bld) [Mass/Vol] 14.8 g/dL 12.0-15.0 [facility] Immature granulocytes/100 WB C Auto (Bld)Ordered By: Bry Toribio on 03-24-2025 Immature granulocytes/100 WBC (Bld) 0.500 % 0.0-0.9 [facility] Comment on above: IG% - Immature Granu locytes (promyelocytes, myelocytes and metamyelocytes) > 1% indicates that a LEFT SHIFT is Present. International normalized rat io (INR) calculationOrdered By: Bry Toribio on 03-24-2025 INR Coag (Bld) [Relative time] 1.2 {INR} [facility] Ketones Test strip Ql (U)Ord ered By: Bry Toribio on 03-24-2025 Ketones Ql (U) Negative Negative [facility] - Chemistry and C hemistry - challengeOrdered By: Bry Toribio on 03-24-2025 AST [Catalytic activity/Vol] 21 U/L <32 [facility] Comment on above: Hemolysis present, R esults could be affected. Lactic Acidon 03-24-2025 Lactate [Moles/Vol] 1.0 mmol/L Normal 0.0-2.0 [facility] Comment on above: Order Comment: Y Performed By: #### L 100.0500, L500.2500 #### [facility] [address] [place], [place], [id number] Lactic acid measurementOrder ed By: Bry Toribio on 03-24-2025 Lactate [Moles/Vol] 1.0 mmol/L 0.0-2.0 [facility] Lipaseon 03-24-2025 Lipase [Catalytic activity/Vol] 15 U/L Normal 13-75 [facility] Comment on above: Result Comment: Karlo vicente note: LIPASE revised reference range effective 23. New Lipase methodology. Expected to produce lower values than the previous assay method. NEW Reference Range: 13 - 75 U/L Performed By: #### L 100.0100, L500.2500 #### [facility] [address] [place], [place], [id number] Lipase measurementOrdered By : Bry Toribio on 03-24-2025 Lipase [Catalytic activity/Vol] 15 U/L 13-75 [facility] Comment on above: Please note:LIPASE r evised reference range effective 23. New Lipase methodology. Expected to produce lower values than the previous assay method. NEW Reference Range: 13 - 75 U/L MCV (mean corpuscular volume ) determinationOrdered By: Bry Toribio on 03-24-2025 MCV (RBC) [Entitic vol] 88.9 fL 81-99 [facility] Mean corpuscular hemoglobin (MCH) determinationOrdered By: Bry Toribio on 03-24-2025 MCH (RBC) [Entitic mass] 30.5 pg 27.0-32.0 [facility] Mean corpuscular hemoglobin concentration (MCHC) determinationOrdered By: Bry Toribio on 03-24-2025 MCHC (RBC) [Mass/Vol] 34.3 g/dL 32-36 [facility] Mean platelet volume determi nationOrdered By: Bry Toribio on 03-24-2025 Platelet mean volume (Bld) [Entitic vol] 11.6 fL 6.2-12.0 [facility] Microscopic analysis of urin e for red blood cells (RBC)Ordered By: Bry Toribio on 03-24-2025 Microscopic analysis of urine for red blood cells (RBC) 0-5 SEEN /hpf 0-5 [facility] Monocyte percentageOrdered B y: Bry Toribio on 03-24-2025 Monocytes/100 WBC (Bld) 3.4 % 0-10 [facility] Mucus LM Ql (Urine sed)Order ed By: Bry Toribio on 03-24-2025 Mucus Ql (Urine sed) 0 SEEN /hpf [facility] Neutrophil percentageOrdered By: Bry Toribio on 03-24-2025 Neutrophils/100 WBC (Bld) 89.3 % High 47-70 [facility] Nitrite Test strip Ql (U)Ord ered By: Bry Toribio on 03-24-2025 Nitrite Ql (U) Negative Negative [facility] Nucleated red blood cell per centageOrdered By: Bry Toribio on 03-24-2025 Nucleated RBC/100 WBC (Bld) [Ratio] 0 % 0-5 [facility] Partial Thromboplast Timeon 03-24-2025 aPTT Coag (Bld) [Time] 32.9 s Normal 24.1-36.2 [facility] Comment on above: Performed By: #### L 100.0500, L500.2500 #### [facility] [address] [place], [address] Platelet countOrdered By: Dannie Toribio on 03-24-2025 Platelets (Bld) [#/Vol] 251 10*3/uL 150-450 [facility] Potassium measurement (mass/ volume)Ordered By: Bry Toribio on 03-24-2025 Potassium (Unsp spec) [Mass/Vol] 3.7 mmol/L 3.3-5.1 [facility] Comment on above: Hemolysis present, R esults could be affected. Protein Test strip Ql (U)Ord ered By: Bry Toribio on 03-24-2025 Protein Ql (U) 15 mg/dl High Negative [facility] Prothrombin Time w/INRon INR Coag (PPP) [Relative time] 1.2 {INR} Normal [facility] Comment on above: Performed By: #### L 100.0500, L500.2500 #### [facility] [address] [place], [address] PT Coag (PPP) [Time] 15.0 s High 11.7-14.9 [facility] Comment on above: Performed By: #### L 100.0500, L500.2500 #### [facility] [address] [place], [address] Prothrombin timeOrdered By: Bry Toribio on 03-24-2025 PT Coag (PPP) [Time] 15.0 s High 11.7-14.9 [facility] RBC Auto (Bld) [#/Vol]Ordere d By: Bry Toribio on 03-24-2025 RBC (Bld) [#/Vol] 4.86 10*6/uL 4.2-5.4 [facility] Serum creatinine measurement (mass/volume)Ordered By: Bry Toribio on 03-24-2025 Creatinine [Mass/Vol] 0.74 mg/dL 0.70-1.20 [facility] Serum globulin measurementOr dered By: Bry Toribio on 03-24-2025 Globulin (S) [Mass/Vol] 2.8 g/dL 2.2-4.2 [facility] Serum glucose measurement (m ass/volume)Ordered By: Bry Toribio on 03-24-2025 Glucose [Mass/Vol] 110 mg/dL High 70-99 [facility] Serum or plasma alanine garcía otransferase (ALT) measurementOrdered By: Bry Toribio on 03-24-2025 ALT [Catalytic activity/Vol] 18 U/L <35 [facility] Serum or plasma albumin elizabet urement (mass/volume)Ordered By: Bry Toribio on 03-24-2025 Albumin [Mass/Vol] 4.5 g/dL 3.5-5.0 [facility] Serum or plasma albumin/glob ulin mass ratioOrdered By: Bry Toribio on 03-24-2025 Albumin/Globulin [Mass ratio] 1.6 {ratio} 0.9-2.4 [facility] Serum or plasma alkaline debora sphatase measurementOrdered By: Bry Toribio on 03-24-2025 ALP [Catalytic activity/Vol] 106 U/L High 35-104 [facility] Serum or plasma calcium elizabet urement (mass/volume)Ordered By: Bry Toribio on 03-24-2025 Calcium [Mass/Vol] 10.1 mg/dL 7.6-11.0 [facility] Serum or plasma urea nitroge n measurement (mass/volume)Ordered By: Bry Toribio on 03-24-2025 Urea nitrogen [Mass/Vol] 11 mg/dL 4-19 [facility] Sodium levelOrdered By: Bry Toribio on 03-24-2025 Sodium [Moles/Vol] 142 mmol/L 133-145 [facility] Squamous epithelial cells de tection in urine sediment by light microscopyOrdered By: Bry Toribio on 03-24-2025 Epithelial cells.squamous LM Ql (Urine sed) 0 SEEN /hpf 5-10 [facility] Total proteinOrdered By: Cici Toribio on 03-24-2025 Protein [Mass/Vol] 7.3 g/dL 5.9-8.4 [facility] Urinalysis, Completeon 03-24 BACTERIA RARE Normal None Seen [facility] Comment on above: Order Comment: CLEAN CATCH Performed By: #### L 100.0500, L500.2500 #### [facility] [address] [place], [address] RBC 0-5 SEEN Normal 0-5 [facility] Comment on above: Order Comment: CLEAN CATCH Performed By: #### L 100.0500, L500.2500 #### [facility] [address] [place], [address] WBC 0-5 SEEN Normal 0-5 [facility] Comment on above: Order Comment: CLEAN CATCH Performed By: #### L 100.0500, L500.2500 #### [facility] [address] [place], [address] EPI,SQUAMOUS 0 SEEN Normal 5-10 [facility] Comment on above: Order Comment: CLEAN CATCH Performed By: #### L 100.0500, L500.2500 #### [facility] [address] [place], [address] Mucus Ql (Urine sed) 0 SEEN Normal [facility] Comment on above: Order Comment: CLEAN CATCH Performed By: #### L 100.0500, L500.2500 #### [facility] [address] [place], [address] Urine clarityOrdered By: Cici Toribio on 03-24-2025 Clarity (U) Clear Clear [facility] Urine color determinationOrd ered By: Bry Toribio on 03-24-2025 Color (U) Straw Yellow [facility] Urine glucose detectionOrder ed By: rBy Toribio on 03-24-2025 Glucose Ql (U) Normal mg/dl Normal [facility] Urine leukocyte esterase det ection by dipstickOrdered By: Bry Toribio on 03-24-2025 Leukocyte esterase Test strip Ql (U) Negative Negative [facility] Urine pHOrdered By: Bry stockton on 03-24-2025 pH (U) 8.0 [pH] 5.0 - 8.0 [facility] Urine sediment bacteria coun t by microscopy (number/high power field)Ordered By: Bry Toribio on 03-24-2025 Bacteria LM.HPF (Urine sed) [#/Area] RARE /hpf None Seen [facility] Urine specific gravity measu rementOrdered By: Bry Toribio on 03-24-2025 Specific gravity (U) [Rel density] 1.010 1.002-1.030 [facility] Urine urobilinogen measureme ntOrdered By: Bry Toribio on 03-24-2025 Urobilinogen Ql (U) Normal mg/dl Normal [facility] White blood cell (WBC) count Ordered By: Bry Toribio on 03-24-2025 WBC (Bld) [#/Vol] 15.1 10*3/uL High 4.4-11.0 [facility] White blood cell countOrdere d By: Bry Toribio on 03-24-2025 White blood cell count 0-5 SEEN /hpf 0-5 [facility] Urine Cultureon 02-09-2025 URC Culture exhibits no growth. Normal [facility] Comment on above: Performed By: #### L 100.0500, L500.2500 #### [facility] [address] [place], [address] Laboratory - Chemistry and C hemistry - challengeOrdered By: Navya Mead on 02-08-2025 Bilirubin Ql (U) Negative [facility] Glucose Ql (U) Negative [facility] Ketones Ql (U) Negative [facility] pH (U) 5.0 [pH] [facility] Specific gravity (U) [Rel density] 1.025 [facility] Urobilinogen (U) [Mass/Vol] Negative [facility] Laboratory - Hematology and Cell countsOrdered By: Navya Mead on 02-08-2025 Hemoglobin Ql (U) Negative [facility] - Specimen inform ationOrdered By: Navya Mead on 02-08-2025 Clarity (U) Clear [facility] Color (U) YELLOW [facility] Laboratory - UrinalysisOrder ed By: Navya Mead on 02-08-2025 Nitrite Ql (U) Negative [facility] Protein Ql (U) Negative [facility] No Panel InformationOrdered By: Navya Mead on 02-08-2025 Urine Leukocytes Negatve [facility] Urine Non-Hemolyzed Blood Negative [facility] Store Sales Leader Office Visit Reporton 02-08-2025 Store Sales Leader Office Visit Report [facility] [address], [address] [place] [address] OFFICE VISIT Date of Service: 02/08/25 MR#: [id number] Acct: [id number] Name: BRISSA STEELE Rep #: [id number] : 1970 Provider: Dr. 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 Normal [facility] PT D/C Summary (1)on 025 PT D/C Summary (1) [facility] Physical Therapy [facility] [address] [place] [address] / REHABILITATION SERVICES DISCHARGE SUMMARY MR#: [id number] Acct: [id number] Name: BRISSA STEELE Rep #: [id number] : 1970 54 From: Jerry Montes PT, Cert. T, [facility] Referring Dr.: Dr. Philip Gerber MD Status: REG RCR Insurance: [employer] - [employer] across global officesEN[facility] [employer]/[facility] SELF PAY INSURANCE Discharge Summary D/C [...] please feel free to call me at [phone]. Thank you for the referral of this patient. Sincerely, Jerry Montes, PT, Cert MDT, OCS Balance/Gait/Functional tests Balance/Special Test Scores Oswestry Low Back Score: 28 02/08/25 0841 CC: Dr. Philip Gerber MD; Dr. Tequila Renee MD JLA Signed Normal [facility] Urine cultureOrdered By: Jeff Mead on 02-08-2025 Bacteria identified Cx Nom (U) Culture exhibits no growth. [facility] Store Sales Leader Office Visit Reporton 01-31-2025 Store Sales Leader Office Visit Report [facility]'[address], [address] [place] [address] OFFICE VISIT Date of Service: 01/31/25 MR#: [id number] Acct: [id number] Name: CEDRICNIGEL Rep #: [id number] : 1970 Provider: Dr. 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 Provider FOB Unknown George-1996 Unknown Kevin-1999 Unknown [...] acute distress, well developed and well groomed [facility] Head: normal to inspection and normocephalic [...] normal a (more content not included)... Normal [facility] Lumbar Spine 2 or 3 Viewson 01-09-2025 Lumbar Spine 2 or 3 Views [facility] Imaging Services [address] [place] [address] Lumbar Spine 2 or 3 Views MR#: [id number] Acct: [id number] Name: BRISSA STEELE Rep #: [id number] : 1970 F 54 From: Donald Donato PCP: Dr. Tequila Renee MD Status: [facility] Study: Lumbar Spine 2 or 3 Views Date of Exam: Exam# [id number] Ordering Dr: Philip Gerber MD PROCEDURE: LUMBAR [...] Philip Gerber MD; Dr. Tequila Renee MD Capacity Management Specialist: Signed Normal [facility] MR/POSTOP.[facility] 01-09-2025 MR/POSTOP.[facility] Medical Records Department [address] [place] [address] Anesthesia Postop Eval I 01/09/25 0817 MR#: [id number] Acct: [id number] Name: BRISSA STEELE Rep #: [id number] : 1970 54 From: Silvia Mckeon PCP: Dr. Tequila Renee MD Status:[facility] Y Race: C Location: [place] [address] Anesthesia: Postop Eval I Current Vital Signs Temperature: 97.3 F Pulse Rate: 76 Blood Pressure: 115/76 Respiratory Rate: 18 Pulse Ox: 93 Assessment Airway patent: Yes Spontaneous unlabored respirations: Yes nausea: No Vomiting: No Anesthesia Complication: No Fluid Hydration Crystalloid volume administer (ml): 10 Total IV fluid infused: 10 Progress Note Anesthesia document: Postop Eval 1 completed: Yes 01/09/25819 Date Silviadiego Mckeon Fernie Signature: Date CC: Signed Normal [facility] MR/[id number] 01-09-2025 [facility] Medical Records Department [address] [place] [address] Anesthesia Postop Eval II 01/09/25830 MR#: [id number] Acct: [id number] Name: BRISSA STEELE Rep #: [id number] : 1970 54 From: Silvia Mckeon PCP: Dr. Tequila Renee MD Status:REG [facility] Y Race: C Location: [place] [address] Anesthesia Postop Eval I Sum Postop Eval Completion status Anesthesia document: Postop Eval 1 completed: Yes Anesthesia Postop Eval I Summary Anesthesia Postop Eval I Summary: Anesthesia Postop Eval I: Assessment Summary Airway patent Yes 01/09/25 08:17 NEWS CLERK.CSIR Spontaneous unlabored Yes 01/09/25 08:17 NEWS CLERK.CSIR respirations Mental status nausea No 01/09/25 08:17 NEWS CLERK.CSIR Vomiting No 01/09/25 08:17 NEWS CLERK.CSIR Anesthesia Postop Eval I: Fluid Summary Crystalloid volume administer 10 01/09/25 08:17 NEWS CLERK.CSIR (ml) Colloids volume administered ( ml) Blood Product volume administered (ml) Total IV fluid infused 10 01/09/25 08:17 NEWS CLERK.CSIR Anesthesia Postop Eval I: Summary Notes Anesthesia Complication No 01/09/25 08:17 NEWS CLERK.CSIR Anesthesia Complication Comment: Post-operative progress note Anesthesia: Postop Eval II Evaluation Mental status: Awake Pain Level: 3 nausea: No Vomiting: No 01/09/25830 Date Silvia Enciso Signature: Date CC: Signed Normal [facility] Magnetic resonance imaging r eportOrdered By: Donald Jordan on 01-09-2025 Study report [facility] Imaging Services [address] [place] [address] Spine Lumbar (Routine) MR#: [id number] Acct: [id number] Name: BRISSA STEELE Rep #: [id number] : 1970 F 54 From: Wai Jordan DO PCP: Dr. Tqeuila Renee MD Status: REG CLI Study:Spine Lumbar (Routine) Date of Exam: 01/06/25 Exam# [id number] Ordering Dr: Philip Gerber MD EXAM: MRI [...] Gerber MD; Dr. Tequila Renee MD ~ Capacity Management Specialist: Signed [facility] Operative Reporton Operative Report [facility] Medical Records Department [address] [place] [address] Operative Report 01/09/25 0826 MR#: [id number] Acct: [id number] Name: BRISSA STEELE Rep #: [id number] : 1970 54 From: Philip Gerber MD PCP: Dr. 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 Tequila Renee MD Signed Normal [facility] Spine Lumbar (Routine)on Spine Lumbar (Routine) [facility] Imaging Services [address] [place], [place] [address] Spine Lumbar (Routine) MR#: [id number] Acct: [id number] Name: BRISSA STEELE Rep #: [id number] : 1970 F 54 From: Donald Donato PCP: Dr. Tequila Renee MD Status: REG CLI Study: Spine Lumbar (Routine) Date of Exam: 01/06/25 Exam# [id number] Ordering Dr: Philip Gerber MD EXAM: MRI [...] Philip Gerber MD; Dr. Tequila Renee MD Capacity Management Specialist: Signed Normal [facility] Inital Evaluation (1) - PTon 12-02-2024 Inital Evaluation (1) - PT [facility] Physical Therapy [facility] [address] [place] [address] / REHABILITATION SERVICES INITIAL EVALUATION MR#: [id number] Acct: [id number] Name: BRISSA STEELE Rep #: [id number] : 1970 54 From: Jerry Montes PT, Cert. MD [place], OCS Referring Dr.: Dr. Philip Gerber MD Status: REG RCR Insurance: [employer]/[facility] SELF PAY INSURANCE Patient's Visit Information [...] Response: No effect Lumbar Standing: Right Side [place] - Symptoms During Testing: No effect Lumbar Standing: Right Side [place] - Symptoms After Testing: No effect Lumbar Standing: Left Side [place] - Mechanical Response: No effect Lumbar Standing: Left Side [place] - Symptoms During Testing: No effect Lumbar Standing: Left Side [place] - Symptoms After Testing: No effect Lumbar [...] improve a (more content not included)... Normal [facility] Hemoglobin A1con 11-13-2024 HbA1c (Bld) [Mass fraction] 5.6 % Normal 3.8-5.6 [facility] Comment on above: Result Comment: Norm al < 5.7 % Prediabetic 5.7 - 6.4 % Diabetic >or= 6.5 % Please note range changes. Performed By: #### L 100.0500, L500.2500 #### [facility] Laboratory [facility], [address] [id number] DOrdered By: David Mead on 11-11-2024 Vitamin D 25-Hydroxy 48.6 ng/mL [facility] Comment on above: Vitamin D 25(OH) Sta tus Range Deficiency <20 ng/mL (50nmol/L) Insufficiency 20 - 30 ng/mL (50 - 75 nmol/L) Sufficiency 30 - 100 ng/mL (75 - 250 nmol/L) Toxicity >100 ng/mL (>250 nmol/L) Absolute lymphocyte countOrd ered By: Navya Mead on 11-11-2024 Lymphocytes Auto (Unsp spec) [#/Vol] 1.16 10*3/uL 0.83-4.51 [facility] Absolute neutrophil countOrd ered By: Navya Mead on 11-11-2024 Neutrophils (Bld) [#/Vol] 4.2 10*3/uL 2.0-7.7 [facility] Albumin to globulin ratioOrd ered By: Navya Mead on 11-11-2024 Albumin/Globulin [Mass ratio] 1.2 {ratio} 0.9-2.4 [facility] Automated lymphocyte count a s percentage of total leukocytesOrdered By: Navya Mead on 11-11-2024 Lymphocytes/100 WBC Auto (Unsp spec) 19.6 % 19- [facility] Basophil percentageOrdered B y: Navya Mead on 11-11-2024 Basophils/100 WBC (Bld) 0.7 % 0-1 [facility] Bilirubin, totalOrdered By: Navya Mead on 11-11-2024 Bilirubin [Mass/Vol] 0.30 mg/dL 0.20-1.00 [facility] Comment on above: For patients on eltr ombopag therapy, use of Dimension [place] TBIL is not recommended. Blood urea nitrogen (BUN)/cr eatinine ratioOrdered By: Navya Mead on 11-11-2024 Urea nitrogen/Creatinine [Mass ratio] 13.0 mg/mg 10-20 [facility] CBC W/Diff, Automatedon Absolute Lymph 1.16 X10 3/uL Normal 0.83-4.51 [facility] Comment on above: Performed By: #### L 100.0500, L500.2500 #### [facility] [address] [place], [address] Absolute Neut 4.2 X10 3/uL Normal 2.0-7.7 [facility] Comment on above: Performed By: #### L 100.0500, L500.2500 #### [facility] [address] [place], [address] Basophils/100 WBC (Bld) 0.7 % Normal 0-1 [facility] Comment on above: Performed By: #### L 100.0500, L500.2500 #### [facility] [address] [place], [address] Eosinophils/100 WBC (Bld) 2.4 % Normal 0-5 [facility] Comment on above: Performed By: #### L 100.0500, L500.2500 #### [facility] [address] [place], [address] Erythrocyte distribution width (RBC) [Ratio] 13.7 % Normal 11.6-14.6 [facility] Comment on above: Performed By: #### L 100.0500, L500.2500 #### [facility] [address] [place], [address] Hematocrit (Bld) [Volume fraction] 45.9 % Normal 37-47 [facility] Comment on above: Performed By: #### L 100.0500, L500.2500 #### [facility] [address] [place], [address] Hemoglobin (Bld) [Mass/Vol] 15.5 g/dL High 12.0-15.0 [facility] Comment on above: Performed By: #### L 100.0500, L500.2500 #### [facility] [address] [place], [address] IG% 1.000 High 0.0-0.9 [facility] Comment on above: Result Comment: IG% - Immature Granulocytes (promyelocytes, myelocytes and metamyelocytes) > 1% indicates that a LEFT SHIFT is Present. Performed By: #### L 100.0500, L500.2500 #### [facility] [address] [place], [address] Lymphocytes/100 WBC (Bld) 19.6 % Normal 19-41 [facility] Comment on above: Performed By: #### L 100.0500, L500.2500 #### [facility] [address] [place], [address] MCH (RBC) [Entitic mass] 30.5 pg Normal 27.0-32.0 [facility] Comment on above: Performed By: #### L 100.0500, L500.2500 #### [facility] [address] [place], [address] MCHC (RBC) [Mass/Vol] 33.8 g/dL Normal 32-36 [facility] Comment on above: Performed By: #### L 100.0500, L500.2500 #### [facility] [address] [place], [address] MCV (RBC) [Entitic vol] 90.4 fL Normal 81-99 [facility] Comment on above: Performed By: #### L 100.0500, L500.2500 #### [facility] [address] [place], [address] Monocytes/100 WBC (Bld) 5.9 % Normal 0-10 [facility] Comment on above: Performed By: #### L 100.0500, L500.2500 #### [facility] [address] [place], [address] Neutrophils/100 WBC (Bld) 70.4 % High 47-70 [facility] Comment on above: Performed By: #### L 100.0500, L500.2500 #### [facility] [address] [place], [address] Nucleated RBC (Bld) [#/Vol] 0 10*3/uL Normal 0-5 [facility] Comment on above: Performed By: #### L 100.0500, L500.2500 #### [facility] [address] [place], [address] Platelet mean volume (Bld) [Entitic vol] 11.5 fL Normal 6.2-12.0 [facility] Comment on above: Performed By: #### L 100.0500, L500.2500 #### [facility] [address] [place], [address] Platelets (Bld) [#/Vol] 176 10*3/uL Normal 150-450 [facility] Comment on above: Performed By: #### L 100.0500, L500.2500 #### [facility] [address] [place], [address] RBC (Bld) [#/Vol] 5.08 10*6/uL Normal 4.2-5.4 [facility] Comment on above: Performed By: #### L 100.0500, L500.2500 #### [facility] [address] [place], [address] RDW SD 45.3 fl High 35.1-43.9 [facility] Comment on above: Performed By: #### L 100.0500, L500.2500 #### [facility] [address] [place], [address] WBC (Bld) [#/Vol] 5.9 10*3/uL Normal 4.4-11.0 [facility] Comment on above: Performed By: #### L 100.0500, L500.2500 #### [facility] [address] [place], [address] Carbon dioxide measurementOr dered By: Navya Mead on 11-11-2024 CO2 [Moles/Vol] 21.0 mmol/L 21.0-32.0 [facility] Chloride measurementOrdered By: Navya Mead on 11-11-2024 Chloride [Moles/Vol] 108 mmol/L High 98-107 [facility] Comprehensive Metabolic Prof ilon 11-11-2024 Albumin [Mass/Vol] 4.2 g/dL Normal 3.2-5.0 [facility] Comment on above: Performed By: #### L 100.0500, L500.2500 #### [facility] [address] [place], [address] Albumin/Globulin [Mass ratio] 1.2 {ratio} Normal 0.9-2.4 [facility] Comment on above: Performed By: #### L 100.0500, L500.2500 #### [facility] [address] [place], [address] ALK P 91 U/L Normal 45-117 [facility] Comment on above: Performed By: #### L 100.0500, L500.2500 #### [facility] [address] [place], [address] ALT [Catalytic activity/Vol] 30 U/L Normal 13-56 [facility] Comment on above: Performed By: #### L 100.0500, L500.2500 #### [facility] [address] [place], [address] AST [Catalytic activity/Vol] 22 U/L Normal 15-37 [facility] Comment on above: Result Comment: Slig ht Hemolysis, Result may be falsely increased. Performed By: #### L 100.0500, L500.2500 #### [facility] [address] [place], [address] Bilirubin [Mass/Vol] 0.30 mg/dL Normal 0.20-1.00 [facility] Comment on above: Result Comment: For patients on eltrombopag therapy, use of Dimension [place] TBIL is not recommended. Performed By: #### L 100.0500, L500.2500 #### [facility] [address] [place], [address] BUN/CRE 13.0 RATIO Normal 10-20 [facility] Comment on above: Performed By: #### L 100.0500, L500.2500 #### [facility] [address] [place], [address] CA,Total 9.6 mg/dL Normal 8.5-10.1 [facility] Comment on above: Performed By: #### L 100.0500, L500.2500 #### [facility] [address] [place], [address] Chloride [Moles/Vol] 108 mmol/L High 98-107 [facility] Comment on above: Performed By: #### L 100.0500, L500.2500 #### [facility] [address] [place], [address] CO2 [Moles/Vol] 21.0 mmol/L Normal 21.0-32.0 [facility] Comment on above: Performed By: #### L 100.0500, L500.2500 #### [facility] [address] [place], [address] Creatinine [Mass/Vol] 0.84 mg/dL Normal 0.55-1.02 [facility] Comment on above: Result Comment: The validity of the calculated GFR GFRAA in patients over 70 years has not been determined. Clinical correlation is essential. Performed By: #### L 100.0500, L500.2500 #### [facility] [address] [place], [address] EST GFR - AA 91 mL/min Normal >60 [facility] Comment on above: Result Comment: Afri can Dutch GFR Calc Performed By: #### L 100.0500, L500.2500 #### [facility] [address] [place], [address] GAP 12 Normal 5-15 [facility] Comment on above: Performed By: #### L 100.0500, L500.2500 #### [facility] [address] [place], [address] GFR/1.73 sq M.predicted among non-blacks MDRD (S/P/Bld) [Vol rate/Area] 75 mL/min/{1.73_m2} Normal >60 [facility] Comment on above: Result Comment: Non- GFR Calc Performed By: #### L 100.0500, L500.2500 #### [facility] [address] [place], [address] Globulin (S) [Mass/Vol] 3.6 g/dL Normal 2.2-4.2 [facility] Comment on above: Performed By: #### L 100.0500, L500.2500 #### [facility] [address] [place], [address] Glucose [Mass/Vol] 82 mg/dL Normal 74-106 [facility] Comment on above: Performed By: #### L 100.0500, L500.2500 #### [facility] [address] [place], [address] Potassium [Moles/Vol] 3.9 mmol/L Normal 3.5-5.1 [facility] Comment on above: Result Comment: Slig ht Hemolysis, Result may be falsely increased. Performed By: #### L 100.0500, L500.2500 #### [facility] [address] [place], [address] Sodium [Moles/Vol] 141 mmol/L Normal 136-145 [facility] Comment on above: Performed By: #### L 100.0500, L500.2500 #### [facility] [address] [place], [address] T PROT 7.8 g/dL Normal 6.4-8.2 [facility] Comment on above: Performed By: #### L 100.0500, L500.2500 #### [facility] [address] [place], [address] Urea nitrogen [Mass/Vol] 11 mg/dL Normal 7-18 [facility] Comment on above: Performed By: #### L 100.0500, L500.2500 #### [facility] [address] [place], [address] Eosinophil percentageOrdered By: Navya Mead on 11-11-2024 Eosinophils/100 WBC (Bld) 2.4 % 0-5 [facility] Erythrocyte distribution wid th (RBC) [Ratio]Ordered By: Navya Mead on 11-11-2024 Erythrocyte distribution width (RBC) [Entitic vol] 45.3 fL High 35.1-43.9 [facility] Erythrocyte distribution wid th ratioOrdered By: Navya Mead on 11-11-2024 Erythrocyte distribution width (RBC) [Ratio] 13.7 % 11.6-14.6 [facility] Erythrocyte distribution wid th standard deviationOrdered By: Navya Mead on 11-11-2024 Erythrocyte distribution width (RBC) [Ratio] 45.3 fl High 35.1-43.9 [facility] Estimated glomerular filtrat ion rate (GFR) AmericanOrdered By: Navya Mead on 11-11-2024 Estimated GFR (MDRD) Amer 91 mL/min >60 [facility] Comment on above: GFR Calc Glomerular filtration rate ( GFR) estimationOrdered By: Navya Mead on 11-11-2024 Estimated GFR (MDRD) Non-Af Amer 75 mL/min >60 [facility] Comment on above: Non- GFR Calc GFR/1.73 sq M.predicted among non-blacks MDRD (S/P/Bld) [Vol rate/Area] 75 mL/min/{1.73_m2} >60 [facility] Comment on above: Non- GFR Calc Glucose measurementOrdered B y: Navya Mead on 11-11-2024 Glucose [Mass/Vol] 82 mg/dL 74-106 [facility] Hematocrit Auto (Bld) [Volum e fraction]Ordered By: Navya Mead on 11-11-2024 Hematocrit (Bld) [Volume fraction] 45.9 % 37-47 [facility] Hemoglobin A1c percentageOrd ered By: Navya Mead on 11-11-2024 HbA1c (Bld) [Mass fraction] 5.6 % 3.8-5.6 [facility] Comment on above: Normal < 5.7 % Predi abetic 5.7 - 6.4 % Diabetic >or= 6.5 % Please note range changes. Hemoglobin measurementOrdere d By: Navya Mead on 11-11-2024 Hemoglobin (Bld) [Mass/Vol] 15.5 g/dL High 12.0-15.0 [facility] High density lipoprotein (HD L) measurementOrdered By: Navya Mead on 11-11-2024 Cholesterol in HDL [Mass/Vol] 64 mg/dL >40 [facility] Comment on above: The drugs N-Acetylcy steine and Metamizole may falsely depress this assay. Reference Range HDL <40 mg/dL Low HDL Cholesterol HDL >or= 60 mg/dL High HDL Cholesterol Immature granulocytes/100 WB C Auto (Bld)Ordered By: Navya Mead on 11-11-2024 Immature granulocytes/100 WBC (Bld) 1.000 % High 0.0-0.9 [facility] Comment on above: IG% - Immature Granu locytes (promyelocytes, myelocytes and metamyelocytes) > 1% indicates that a LEFT SHIFT is Present. Laboratory - Chemistry and C hemistry - challengeOrdered By: Navya Mead on 11-11-2024 AST [Catalytic activity/Vol] 22 U/L 15-37 [facility] Comment on above: Slight Hemolysis, Re sult may be falsely increased. Lipid Profileon 11-11-2024 Cholesterol [Mass/Vol] 164 mg/dL Normal 200 [facility] Comment on above: Result Comment: <200 mg/dL Desirable 200-240 mg/dL Borderline >240 mg/dL High Risk Performed By: #### L 100.0500, L500.2500 #### [facility] [address] [place], [address] Cholesterol in HDL [Mass/Vol] 64 mg/dL Normal [facility] Comment on above: Result Comment: The drugs N-Acetylcysteine and Metamizole may falsely depress this assay. Reference Range HDL <40 mg/dL Low HDL Cholesterol HDL >or= 60 mg/dL High HDL Cholesterol Performed By: #### L 100.0500, L500.2500 #### [facility] [address] [place], [address] Cholesterol in LDL [Mass/Vol] 87 mg/dL Normal 0-130 [facility] Comment on above: Performed By: #### L 100.0500, L500.2500 #### [facility] [address] [place], [address] Cholesterol in VLDL [Mass/Vol] 13 mg/dL Normal 5-40 [facility] Comment on above: Performed By: #### L 100.0500, L500.2500 #### [facility] [address] [facility] [place], [place], [address] Triglyceride [Mass/Vol] 63 mg/dL Normal [facility] Comment on above: Result Comment: The drugs N-Acetylcysteine and Metamizole may falsely depress this assay. Serum Triglycerides Reference Interval Normal <150 mg/dL Borderline high 150 - 199 mg/dL High 200 - 499 mg/dL Very High > or = 500 mg/dL Performed By: #### L 100.0500, L500.2500 #### [facility] [address] [facility] [place], [place], [address] Low density lipoprotein (LDL ) cholesterol measurementOrdered By: Navya Mead on 11-11-2024 Cholesterol in LDL [Mass/Vol] 87 mg/dL 0-130 [facility] Lymphocytes Auto (Unsp spec) [#/Vol]Ordered By: Navya Mead on 11-11-2024 Lymphocytes (Bld) [#/Vol] 1.16 10*3/uL 0.83-4.51 [facility] Lymphocytes/100 WBC Auto (Un sp spec)Ordered By: Navya Mead on 11-11-2024 Lymphocytes/100 WBC (Bld) 19.6 % 19-41 [facility] MCV (mean corpuscular volume ) determinationOrdered By: Navya Mead on 11-11-2024 MCV (RBC) [Entitic vol] 90.4 fL 81-99 [facility] Mean corpuscular hemoglobin (MCH) determinationOrdered By: Navya Mead on 11-11-2024 MCH (RBC) [Entitic mass] 30.5 pg 27.0-32.0 [facility] Mean corpuscular hemoglobin concentration (MCHC) determinationOrdered By: Navya Mead on 11-11-2024 MCHC (RBC) [Mass/Vol] 33.8 g/dL 32-36 [facility] Mean platelet volume determi nationOrdered By: Navya Mead on 11-11-2024 Platelet mean volume (Bld) [Entitic vol] 11.5 fL 6.2-12.0 [facility] Monocyte percentageOrdered B y: Navya Mead on 11-11-2024 Monocytes/100 WBC (Bld) 5.9 % 0-10 [facility] Neutrophil percentageOrdered By: Navya Mead on 11-11-2024 Neutrophils/100 WBC (Bld) 70.4 % High 47-70 [facility] Nucleated red blood cell per centageOrdered By: Navya Mead on 11-11-2024 Nucleated RBC/100 WBC (Bld) [Ratio] 0 % 0-5 [facility] Store Sales Leader Office Visit Reporton 11-11-2024 Store Sales Leader Office Visit Report [facility] [address], [address] [place] [address] OFFICE VISIT Date of Service: 11/11/24 MR#: [id number] Acct: [id number] Name: BRISSA STEELE Rep #: [id number] : 1970 Provider: Dr. Navya holt MD Age/Sex: 54/F [place] [facility] [place]: Signed Intake Vital Signs 10/24/24 09:17 11/11/24 09:32 Height 5 ft 4 in 5 ft 4 in Weight: 210 lb 8 oz BMI 36.1 BP 104/70 Pulse 88 Intake Visit Reasons: Weight Management Crown Attacher Required: No Is patient in pain?: No [...] you fallen in the past year?: No [facility] Medical History Pain Nausea Epigastric pain Wears [...] safe at home: Yes additional social history: Prfxlyo-Tjwu-Kkqddfi Comfort Control Patient is [employer] at [employer] History 4 Elective abortions Hx Para [...] Const General: (more content not included)... Normal [facility] Platelet countOrdered By: Arvind Mead on 11-11-2024 Platelets (Bld) [#/Vol] 176 10*3/uL 150-450 [facility] Potassium measurementOrdered By: Navya Mead on 11-11-2024 Potassium [Moles/Vol] 3.9 mmol/L 3.5-5.1 [facility] Comment on above: Slight Hemolysis, Re sult may be falsely increased. RBC Auto (Bld) [#/Vol]Ordere d By: Navya Mead on 11-11-2024 RBC (Bld) [#/Vol] 5.08 10*6/uL 4.2-5.4 [facility] Serum anion gap measurementO rdered By: Navya Mead on 11-11-2024 Anion gap [Moles/Vol] 12 mmol/L 5-15 [facility] Serum globulin measurementOr dered By: Navya Mead on 11-11-2024 Globulin (S) [Mass/Vol] 3.6 g/dL 2.2-4.2 [facility] Serum or plasma alanine garcía otransferase (ALT) measurementOrdered By: Navya Mead on 11-11-2024 ALT [Catalytic activity/Vol] 30 U/L 13-56 [facility] Serum or plasma albumin elizabet urement (mass/volume)Ordered By: Navya Mead on 11-11-2024 Albumin [Mass/Vol] 4.2 g/dL 3.2-5.0 [facility] Serum or plasma alkaline debora sphatase measurementOrdered By: Navya Mead on 11-11-2024 ALP [Catalytic activity/Vol] 91 U/L 45-117 [facility] Serum or plasma calcium elizabet urement (mass/volume)Ordered By: Navya Mead on 11-11-2024 Calcium [Mass/Vol] 9.6 mg/dL 8.5-10.1 [facility] Serum or plasma cholesterol measurement (mass/volume)Ordered By: Navya Mead on 11-11-2024 Cholesterol [Mass/Vol] 164 mg/dL <200 [facility] Comment on above: <200 mg/dL Desirable 200-240 mg/dL Borderline >240 mg/dL High Risk Serum or plasma creatinine m easurement (mass/volume)Ordered By: Navya Mead on 11-11-2024 Creatinine [Mass/Vol] 0.84 mg/dL 0.55-1.02 [facility] Comment on above: The validity of the calculated GFR & GFRAA in patients over 70 years has not been determined. Clinical correlation is essential. Serum or plasma thyroid stim ulating hormone (TSH) measurement (units/volume)Ordered By: Navya Mead on 11-11-2024 TSH Qn 1.120 uIU/mL 0.358-3.740 [facility] Serum or plasma urea nitroge n measurement (mass/volume)Ordered By: Navya Mead on 11-11-2024 Urea nitrogen [Mass/Vol] 11 mg/dL 7-18 [facility] Sodium levelOrdered By: Keegan Mead on 11-11-2024 Sodium [Moles/Vol] 141 mmol/L 136-145 [facility] TSH QnOrdered By: Navya gonzalez on 11-11-2024 Thyroid Stimulating Hormone (TSH) 1.120 uIU/mL 0.358-3.740 [facility] Thyroid Stim Hormone (TSH)on 11-11-2024 TSH 1.120 uIU/mL Normal 0.358-3.740 [facility] Comment on above: Performed By: #### L 100.0500, L500.2500 #### [facility] [address] [place], [place], [address] Total proteinOrdered By: Jeff Mead on 11-11-2024 Protein [Mass/Vol] 7.8 g/dL 6.4-8.2 [facility] Triglycerides measurementOrd ered By: Navya Mead on 11-11-2024 Triglyceride [Mass/Vol] 63 mg/dL <199 [facility] Comment on above: The drugs N-Acetylcy steine and Metamizole may falsely depress this assay.Serum Triglycerides Reference Interval Normal <150 mg/dL Borderline high 150 - 199 mg/dL High 200 - 499 mg/dL Very High > or = 500 mg/dL Very low density lipoprotein (VLDL) cholesterol measurementOrdered By: Navya Mead on 11-11-2024 Very low density lipoprotein (VLDL) cholesterol measurement 13 mg/dL 5-40 [facility] VLDL Cholesterol 13 mg/dL 5-40 [facility] Vitamin D,25 Hydroxyon 11-11 Vitamin D 25-OH 48.6 ng/mL Normal [facility] Comment on above: Result Comment: Harriet min D 25(OH) Status Range Deficiency <20 ng/mL (50nmol/L) Insufficiency 20 - 30 ng/mL (50 - 75 nmol/L) Sufficiency 30 - 100 ng/mL (75 - 250 nmol/L) Toxicity >100 ng/mL (>250 nmol/L) Performed By: #### L 100.0500, L500.2500 #### [facility] [address] [place], [place], [address] White blood cell (WBC) count Ordered By: Navya Mead on 11-11-2024 WBC (Bld) [#/Vol] 5.9 10*3/uL 4.4-11.0 [facility] Fluor Guidance for Spine Inj on 10-24-2024 Fluor Guidance for Spine Inj [facility] Imaging Services [address] [place], [place] [address] Fluor Guidance for Spine Inj MR#: [id number] Acct: [id number] Name: BRISSA STEELE Rep #: [id number] : 1970 F 54 From: Issac gee MD PCP: Dr. Tequila Renee MD Status: [facility] Study: Fluor Guidance for Spine Inj Date of Exam: Exam# [id number] Ordering Dr: Philip Gerber MD [id number] PROCEDURE: Caudal block. DATE OF EXAMINATION: October 24, 2024. INDICATION: Female, 54 years old. Chronic low back pain. FLUOROSCOPY TIME (if supplied): (4.2 seconds) minutes/seconds. 4.47 mGy. One image was submitted. RAD/Fluor Guidance for Spine Inj IMPRESSION: Intraoperative imaging provided for caudal block. Electronically Signed: Issac Dasilva MD at 14:49 EST , CC: Dr. Philip Gerber MD; Dr. Tequlia Renee MD Capacity Management Specialist: Signed Normal [facility] Operative Reporton 5 Operative Report [facility] Medical Records Department [address] [place] [address] Operative Report 10/24/24 1015 MR#: [id number] Acct: [id number] Name: BRISSA STEELE Rep #: [id number] : 1970 54 From: Philip Gerber MD PCP: Dr. 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 Tequila Renee MD Signed Normal [facility] Fluor Guidance for Spine Inj on 06-20-2024 Fluor Guidance for Spine Inj [facility] Imaging Services [address] [place] [address] [id number] Fluor Guidance for Spine Inj MR#: [id number] Acct: [id number] Name: BRISSA STEELE Rep #: [id number] : 1970 F 53 From: Issac gee MD PCP: Dr. Tequila Renee MD Status: [facility] Study: Fluor Guidance for Spine Inj Date of Exam: Exam# [id number] Ordering Dr: Philip Gerber MD [id number] PROCEDURE: Caudal epidural steroid injection. DATE OF EXAMINATION: June 20, 2024. INDICATION: Female, 53 years old. Low back pain. FLUOROSCOPY TIME (if supplied): (4 seconds) minutes/seconds. 4.39 mGy.. One image was submitted. RAD/Fluor Guidance for Spine Inj IMPRESSION: Intraoperative imaging provided for caudal block. Electronically Signed: Issac Dasilva MD at 14:30 EDT Reading Location ID and State: [facility] / [place] , Service support , CC: Dr. Philip Gerber MD; Dr. Tequila Renee MD Capacity Management Specialist: Signed [facility] MR/POSTOP.ANEon 06-20-2024 MR/POSTOP.[facility] Medical Records Department [address] [place] [address] Anesthesia Postop Eval I 06/20/24 1114 MR#: [id number] Acct: [id number] Name: BRISSA STEELE Rep #: [id number] : 1970 53 From: Mimi Russell NEWS CLERK PCP: Dr. Tequila Renee MD Status:REG [facility] Y Race: C Location: [place] [address] Anesthesia: Postop Eval I Current Vital Signs [...] completed: Yes 06/20/24 1115 Date Mimi Russell NEWS CLERK Cosigner Signature: Date CC: Signed [facility] MR/SPSNSFAP2or 06-20-2024 MR/POSTOPAN2 [facility] Medical Records Department [address] [place] [address] Anesthesia Postop Eval II 06/20/24 1235 MR#: [id number] Acct: [id number] Name: BRISSA STEELE Rep #: [id number] : 1970 53 From: Casimiro Sainz MD PCP: Dr. Tequila Renee MD Status:DEP [facility] Y Race: C Location: [facility] Anesthesia Postop Eval I Sum Postop Eval Completion status Anesthesia document: Postop Eval 1 completed: Yes Anesthesia Postop Eval I Summary Anesthesia Postop Eval I Summary: Anesthesia Postop Eval I: Assessment Summary Airway patent Yes 06/20/24 11:15 NEWS CLERK.SKOBY Spontaneous unlabored Yes 06/20/24 11:15 NEWS CLERK.SKOBY respirations Mental status Awake,Calm 06/20/24 11:15 NEWS CLERK.SKOBY nausea No 06/20/24 11:15 NEWS CLERK.SKOBY Vomiting No 06/20/24 11:15 NEWS CLERK.SKOBY Anesthesia Postop Eval I: Fluid Summary Crystalloid volume administer 200 06/20/24 11:15 NEWS CLERK.SKOBY (ml) Colloids volume administered ( ml) Blood Product volume administered (ml) Total IV fluid infused 200 06/20/24 11:15 NEWS CLERK.SKOBY Anesthesia Postop Eval I: Summary Notes Anesthesia Complication No 06/20/24 11:15 NEWS CLERK.SKOBY Anesthesia Complication Comment: Post-operative progress note Anesthesia: Postop Eval II Evaluation Mental status: Awake and Calm Pain Level: 1 nausea: No Vomiting: No Complications Anesthesia Complication: No 06/20/24 1236 Date Casimiro Sainz MD Cosigner Signature: Date CC: Signed Normal [facility] Operative Reporton 4 Operative Report [facility] Medical Records Department [address] [place] [address] Operative Report 06/20/24 1121 MR#: [id number] Acct: [id number] Name: BRISSA STEELE Rep #: [id number] : 1970 53 From: Philip Gerber MD PCP: Dr. Tequila Renee MD Status:[facility] Location: [place] [address] Report of Operation Date of Procedure: 06/20/24 [...] 1122 Cosigner Signature (if applicable): CC: Dr. Philpi Gerber MD; Dr. Tequila Renee MD Signed Normal [facility] Whole blood hemoglobin A1c/t otal hemoglobin ratio (mass fraction)Ordered By: Dr. Mead on 02-02-2023 HbA1c (Bld) [Mass fraction] 5.3 % 3.8-5.6 [facility] Comment on above: Normal < 5.7 % Predi abetic 5.7 - 6.4 % Diabetic >or= 6.5 % Please note range changes. Basophil percentageOrdered B y: Dr. Renee on 12-04-2022 Bilirubin [Mass/Vol] 0.30 mg/dL 0.20-1.00 [facility] Comment on above: For patients on eltr ombopag therapy, use of Dimension [place] TBIL is not recommended. Chloride [Moles/Vol] 108 mmol/L 98-107 [facility] Cholesterol [Mass/Vol] 155 mg/dL <200 [facility] Comment on above: <200 mg/dL Desirable 200-240 mg/dL Borderline >240 mg/dL High Risk Glucose [Mass/Vol] 106 mg/dL 74-106 [facility] Comment on above: Fasting Glucose resu lt from 100 to 125 mg/dL suggests IMPAIRED HOMEOSTASIS per A.D.A. criteria. Potassium [Moles/Vol] 3.8 mmol/L 3.5-5.1 [facility] Protein [Mass/Vol] 7.0 g/dL 6.4-8.2 [facility] Sodium [Moles/Vol] 139 mmol/L 136-145 [facility] Triglyceride [Mass/Vol] 105 mg/dL <199 [facility] Comment on above: The drugs N-Acetylcy steine and Metamizole may falsely depress this assay.Serum Triglycerides Reference Interval Normal <150 mg/dL Borderline high 150 - 199 mg/dL High 200 - 499 mg/dL Very High > or = 500 mg/dL WBC (Bld) [#/Vol] 6.1 10*3/uL 4.4-11.0 [facility] Blood erythrocytes count (nu mber/volume)Ordered By: Dr. Renee on 12-04-2022 RBC (Bld) [#/Vol] 4.46 10*6/uL 4.2-5.4 [facility] Blood hemoglobin measurement (mass/volume)Ordered By: Dr. Renee on 12-04-2022 Hemoglobin (Bld) [Mass/Vol] 13.5 g/dL 12.0-15.0 [facility] Blood platelet mean volumeOr dered By: Dr. Renee on 12-04-2022 Platelet mean volume (Bld) [Entitic vol] 11.0 fL 6.2-12.0 [facility] Determination of erythrocyte mean corpuscular volume (MCV)Ordered By: Dr. Renee on 12-04-2022 MCV (RBC) [Entitic vol] 89.0 fL 81-99 [facility] Hematocrit Auto (Bld) [Volum e fraction]Ordered By: Dr. Renee on 12-04-2022 Hematocrit (Bld) [Volume fraction] 39.7 % 37-47 [facility] Laboratory - Chemistry and C hemistry - challengeOrdered By: Dr. Renee on 12-04-2022 ALP [Catalytic activity/Vol] 78 U/L 45-117 [facility] ALT [Catalytic activity/Vol] 23 U/L 13-56 [facility] CO2 [Moles/Vol] 25.0 mmol/L 21.0-32.0 [facility] Cobalamin (Vitamin B12) [Mass/Vol] 743 pg/mL 211-911 [facility] Globulin (S) [Mass/Vol] 3.2 g/dL 2.2-4.2 [facility] Urea nitrogen/Creatinine [Mass ratio] 20.3 mg/mg 10-20 [facility] Laboratory - Hematology and Cell countsOrdered By: Dr. Renee on 12-04-2022 Erythrocyte distribution width (RBC) [Entitic vol] 42.5 fL 35.1-43.9 [facility] Erythrocyte distribution width (RBC) [Ratio] 12.9 % 11.6-14.6 [facility] MCH (RBC) [Entitic mass] 30.3 pg 27.0-32.0 [facility] MCHC Auto (RBC) [Mass/Vol]Or dered By: Dr. Renee on 12-04-2022 MCHC (RBC) [Mass/Vol] 34.0 g/dL 32-36 [facility] No Panel InformationOrdered By: Dr. Renee on 12-04-2022 Estimated GFR (MDRD) Amer 116 mL/min >60 [facility] Comment on above: GFR Calc Estimated GFR (MDRD) Non-Af Amer 96 mL/min >60 [facility] Comment on above: Non- GFR Calc Thyroid Stimulating Hormone (TSH) 2.26 uIU/mL 0.358-3.74 [facility] Platelets bldOrdered By: Dr. Renee on 12-04-2022 Platelets (Bld) [#/Vol] 223 10*3/uL 150-450 [facility] Serum or plasma albumin elizabet urement (mass/volume)Ordered By: Dr. Renee on 12-04-2022 Albumin [Mass/Vol] 3.8 g/dL 3.2-5.0 [facility] Serum or plasma albumin/glob ulin mass ratioOrdered By: Dr. Renee on 12-04-2022 Albumin/Globulin [Mass ratio] 1.2 {ratio} 0.9-2.4 [facility] Serum or plasma calcium elizabet urement (mass/volume)Ordered By: Dr. Renee on 12-04-2022 Calcium [Mass/Vol] 9.0 mg/dL 8.5-10.1 [facility] Serum or plasma cholesterol in HDL measurement (mass/volume)Ordered By: Dr. Renee on 12-04-2022 Cholesterol in HDL [Mass/Vol] 47 mg/dL >40 [facility] Comment on above: The drugs N-Acetylcy steine and Metamizole may falsely depress this assay. Reference Range HDL <40 mg/dL Low HDL Cholesterol HDL >or= 60 mg/dL High HDL Cholesterol Serum or plasma cholesterol in VLDL measurement (mass/volume)Ordered By: Dr. Renee on 12-04-2022 Cholesterol in VLDL [Mass/Vol] 21 mg/dL 5-40 [facility] Serum or plasma creatinine m easurement (mass/volume)Ordered By: Dr. Renee on 12-04-2022 Creatinine [Mass/Vol] 0.69 mg/dL 0.55-1.02 [facility] Comment on above: The validity of the calculated GFR & GFRAA in patients over 70 years has not been determined. Clinical correlation is essential. Serum or plasma low density lipoprotein (LDL) cholesterol measurement (mass/volume)Ordered By: Dr. Renee on 12-04-2022 Cholesterol in LDL [Mass/Vol] 87 mg/dL 0-130 [facility] Serum or plasma urea nitroge n measurement (mass/volume)Ordered By: Dr. Renee on 12-04-2022 Urea nitrogen [Mass/Vol] 14 mg/dL 7-18 [facility] Thin prep Papanicolaou smear with manual screeningOrdered By: Dr. Renee on 12-04-2022 Thin prep Papanicolaou smear with manual screening 17 U/L 15-37 [facility] Thin prep Papanicolaou smear with manual screening 6 5-15 [facility] Office Visit (Family Medicin e)on 11-25-2022 Follow-up visit Diagnoses/Problems BMI 39.0-39.9,adult (V85.39) (Z68.39) History of depression (V11.8) (Z86.59) Dyspnea (786.09) (R06.00) GERD (gastroesophageal reflux disease) (530.81) (K21.9) Other screening mammogram (V76.12) (Z12.31) Weight gain (783.1) (R63.5) Orders Dyspnea Complete PFT w/o ABG; Status:Hold For - Scheduling; Requested for:25Nov2022; Dyspnea, PMH: History of depression Xray Chest 2 View PA + Lateral; Status:Hold For - Scheduling; Requested for:25Nov2022; Radiologist to Determine Optimal Study : Y What are the patient's signs and symptoms? : [place] PMH: History of depression Complete Blood Count; Status:Active; Requested for:25Nov2022; Comprehensive Metabolic Panel; Status:Active; Requested for:25Nov2022; Electrocardiogram EKG; Status:Hold For - Scheduling; Requested for:25Nov2022; Lipid Panel; Status:Active; Requested for:[id number]; TSH WITH REFLEX TO FREE T4 IF ABNORMAL; Status:Active; Requested for:[id number]; Vit B12 Bind.Capacity; Status:Active; Requested for:[id number]; Patient Discussion/Summary Discussed getting started on workup, plan followup 2 mos, consider additional testing depending ont hese results, ei sleep study, echo, etc. Call concerns. 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, MANAGER CLEANING cough, pitting edema, BLE History of Present [...] 1 CAPSULE Daily Vitals Vital Signs Recorded: [id number] 08:19AM Heart Rate92 Shdxfrsd888, LUE, Sitting Gkejexhqs21, LUE, Sitting Height5 ft 3.5 in Njhuan043 lb 5 oz BMI Qqqghlykor96.81 kg/m2 BSA Calculated2.06 Tobacco Useb) No Falls Screening (Age 18+)a) No falls within the last year O2 Qtbetbyosk72 Physical Exam Constitutional: Alert and in no [...] Nov 25 2022 8:50AM EST (Author) Normal [employer] Tobacco Screening.on 023 Fall risk assessment a) No falls within the last year [facility] Phone: Tobacco use status CPHS b) No M [facility] Phone: Office Visit (Primary Care F orms)on 04-06-2022 Follow-up visit Diagnosis/Problems Assessed Other screening mammogram (V76.12) (Z12.31) Orders Depression Renew: Venlafaxine HCl ER 75 MG Oral Capsule Extended Release 24 Hour; TAKE 2 CAPSULE Daily Rx By: Tequila Renee; Dispense: 0 Days ; #:180 Capsule; Refill: 1;For: Depression; ZEYAD = N; Sent To: [facility]; Last Updated By: Jade Garcia; 01/08/2022 9:05:09 AM GERD (gastroesophageal reflux disease) Changed: From Lansoprazole 30 MG Oral Capsule Delayed Release Take 1 capsule twice daily To Lansoprazole 30 MG Oral Capsule Delayed Release (Prevacid) TAKE 2 CAPSULE Daily Rx By: Tequila Renee; Dispense: 90 Days ; #:180 Capsule; Refill: 1;For: GERD (gastroesophageal reflux disease); ZEYAD = N; Sent To: [facility]; Last Updated By: Jade Garcia; 01/08/2022 9:05:09 AM Other screening mammogram Mamm - Screening Mammogram w/ Tomosynthesis; Status:Hold For - Scheduling; Requested for:[id number]; Perform:[facility]; Due:[id number];Ordered; For:Other screening mammogram; Ordered By:Tequila Renee; Radiologist [...] Gets screening labs through 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 Depression, stable on current medication, wishes [...] 24 HourTAKE 2 CAPSULE Daily Allergies Medication Duramorph SOLGena Recorded By: Rosalie Rey; 11/05/2020 8:28:48 AM Vitals Vital Signs Recorded: 08Jan2022 09:03AM Heart Rate84 Vvkktnbk859 Wzhuwaosk04 Height5 ft 3.5 in Hzguyh846 lb BMI Btkopivjsn69.36 kg/m2 BSA Calculated2.03 Tobacco Useb) No Physical [...] Jan 08 2022 9:39AM EST (Author) Normal [employer] Tobacco Screening.on 022 Tobacco use status CPHS b) No M [facility] 205 DO Work Phone: Vital Signs Date Time Vital Sign Value Performing Clinician Facility 05-22-2025 09:30-0400 Body temperature 98 [degF] Dr. Tequila Renee MD Work Phone: 4(873)519-249560 [place] [address] 05-22-2025 09:30-0400 Diastolic blood pressure 74 mm[Hg] Dr. Tequila Renee MD Work Phone: 0(802)314-161523 [place] [address] 05-22-2025 09:30-0400 Heart rate 72 /min Dr. Tequila Renee MD Work Phone: 8(891)344-519023 [place] [address] 05-22-2025 09:30-0400 Respiratory rate 16 /min Dr. Tequila Renee MD Work Phone: 7(034)091-639323 [place] [address] 05-22-2025 09:30-0400 SaO2% (BldA) [Mass fraction] 99 % Dr. Teqiula Renee MD Work Phone: 8(407)217-009323 [place] [address] 05-22-2025 09:30-0400 Systolic blood pressure 102 mm[Hg] Dr. Tequila Renee MD Work Phone: 7(078)904-829560 [place] [address] 05-22-2025 08:34-0400 Body height 162.[address] Tequila Renee MD Work Phone: 2(785)989-167860 [place] [address] 05-22-2025 08:34-0400 Body mass index (BMI) [Ratio] 37 kg/m2 Dr. Tequila Renee MD Work Phone: 8(166)641-944760 [place] [address] 05-22-2025 08:34-0400 Body weight [address] Tequila Renee MD Work Phone: 3(177)287-037360 [place] [address] 05-08-2025 09:58-0400 Body temperature 97 [degF] Dr. Tequila Renee MD Work Phone: 1(706)011-545760 [place] [address] 05-08-2025 09:58-0400 Diastolic blood pressure 64 mm[Hg] Dr. Tequila Renee MD Work Phone: [facility] 05-08-2025 09:58-0400 Heart rate 56 /min Dr. Tequila Renee MD Work Phone: 8(997)689-990460 [place] [address] 05-08-2025 09:58-0400 Respiratory rate 16 /min Dr. Tequila Renee MD Work Phone: 2(448)083-029960 [place] [address] 05-08-2025 09:58-0400 SaO2% (BldA) [Mass fraction] 93 % Dr. Tequila Renee MD Work Phone: 7(183)005-371260 [place] [address] 05-08-2025 09:58-0400 Systolic blood pressure 91 mm[Hg] Dr. Tequila Renee MD Work Phone: 9(993)869-056760 [place] [address] 05-08-2025 09:45-0400 Inhaled oxygen flow rate 2 L/min Dr. Tequila Renee MD Work Phone: 6(215)732-226360 [place] [address] 05-08-2025 07:59-0400 Body height 162.[address] Tequila Renee MD Work Phone: 5(793)871-634760 [place] [address] 05-08-2025 07:59-0400 Body mass index (BMI) [Ratio] 36.4 kg/m2 Dr. Tequila Renee MD Work Phone: 0(295)242-025560 [place] [address] 05-08-2025 07:59-0400 Body weight 96.[address] Tequila Renee MD Work Phone: 1(965)601-464260 [place] [address] 04-28-2025 08:07-0400 Body height 162.[address] Tequila Renee MD Work Phone: [facility] 04-28-2025 08:07-0400 Body mass index (BMI) [Ratio] 36 kg/m2 Dr. Tequila Renee MD Work Phone: [facility] 04-28-2025 08:07-0400 Body weight 95.[address] Tequila Renee MD Work Phone: [facility] 03-30-2025 10:48-0400 Body height 160 cm Tequila Renee MD Work Phone: [facility] 03-30-2025 10:48-0400 Body mass index (BMI) [Ratio] 37.55 kg/m2 Tequila Renee MD Work Phone: [facility] 03-30-2025 10:48-0400 Body weight 96.16 kg Tequila Renee MD Work Phone: [facility] 03-30-2025 10:48-0400 Diastolic blood pressure 80 mm[Hg] Tequila Renee MD Work Phone: [facility] 03-30-2025 10:48-0400 Heart rate 84 /min Tequila Renee MD Work Phone: [facility] 03-30-2025 10:48-0400 Systolic blood pressure 134 mm[Hg] Tequila Renee MD Work Phone: [facility] 03-28-2025 09:44-0400 Body temperature 98.8 [degF] Dr. Tequila Renee MD Work Phone: [facility] 03-28-2025 09:44-0400 Diastolic blood pressure 61 mm[Hg] Dr. Tequila Renee MD Work Phone: [facility] 03-28-2025 09:44-0400 Heart rate 79 /min Dr. Tequila Renee MD Work Phone: [facility] 03-28-2025 09:44-0400 Respiratory rate 12 /min Dr. Tequila Renee MD Work Phone: [facility] 03-28-2025 09:44-0400 SaO2% (BldA) [Mass fraction] 91 % Dr. Tequila Renee MD Work Phone: [facility] 03-28-2025 09:44-0400 Systolic blood pressure 98 mm[Hg] Dr. Tequila Renee MD Work Phone: [facility] 03-25-2025 13:08-0400 Body height 162.[address] Tequila Renee MD Work Phone: [facility] 03-25-2025 13:08-0400 Body weight 98.[address] Tequila Renee MD Work Phone: 6(967)352-788560 [place] [address] 03-25-2025 00:59-0400 Body mass index (BMI) [Ratio] 37.3 kg/m2 Dr. Tequila Renee MD Work Phone: 8(798)398-023560 [place] [address] 03-25-2025 00:41-0400 Diastolic blood pressure 55 mm[Hg] Dr. Tequila Renee MD Work Phone: 6(866)078-164960 [place] [address] 03-25-2025 00:41-0400 Heart rate 94 /min Dr. Tequila Renee MD Work Phone: 2(821)702-294323 [place] [address] 03-25-2025 00:41-0400 Respiratory rate 15 /min Dr. Tequila Renee MD Work Phone: 9(399)038-061923 [place] [address] 03-25-2025 00:41-0400 SaO2% (BldA) [Mass fraction] 92 % Dr. Tequila Renee MD Work Phone: 0(598)293-189323 [place] [address] 03-25-2025 00:41-0400 Systolic blood pressure 101 mm[Hg] Dr. Tequila Renee MD Work Phone: 1(230)884-034723 [place] [address] 03-24-2025 23:32-0400 Body temperature 100.6 [degF] Dr. Tequila Renee MD Work Phone: 6(872)461-371823 [place] [address] 03-24-2025 16:04-0400 Body height 162.[address] Tequila Renee MD Work Phone: 1(582)369-089660 [place] [address] 03-24-2025 16:04-0400 Body mass index (BMI) [Ratio] 37.2 kg/m2 Dr. Tequila Renee MD Work Phone: 8(893)869-529060 [place] [address] 03-24-2025 16:04-0400 Body weight 98.[address] Tequila Renee MD Work Phone: 7(978)254-196260 [place] [address] 02-08-2025 13:06-0400 Body height 162.[address] Tequila Renee MD Work Phone: 9(777)087-475360 [place] [address] 02-08-2025 12:55-0400 Diastolic blood pressure 58 mm[Hg] Dr. Tequila Renee MD Work Phone: [facility] 02-08-2025 12:55-0400 Systolic blood pressure 97 mm[Hg] Dr. Tequila Renee MD Work Phone: [facility] 02-03-2025 08:23-0400 Body height 160 cm Tequila Renee MD Work Phone: [facility] 02-03-2025 08:23-0400 Body mass index (BMI) [Ratio] 37.55 kg/m2 Tequila Renee MD Work Phone: [facility] 02-03-2025 08:23-0400 Body weight 96.16 kg Tequila Renee MD Work Phone: [facility] 02-03-2025 08:23-0400 Diastolic blood pressure 78 mm[Hg] Tequila Renee MD Work Phone: 0(474)735-739238 [place] [address] 02-03-2025 08:23-0400 Heart rate 76 /min Tequila Renee MD Work Phone: [facility] 02-03-2025 08:23-0400 Systolic blood pressure 130 mm[Hg] Tequila Renee MD Work Phone: [facility] 01-09-2025 08:35-0400 Body temperature 97.9 [degF] Dr. Tequila Renee MD Work Phone: [facility] 01-09-2025 08:35-0400 Diastolic blood pressure 59 mm[Hg] Dr. Tequila Renee MD Work Phone: [facility] 01-09-2025 08:35-0400 Heart rate 75 /min Dr. Tequila Renee MD Work Phone: [facility] 01-09-2025 08:35-0400 Respiratory rate 16 /min Dr. Tequila Renee MD Work Phone: [facility] 01-09-2025 08:35-0400 SaO2% (BldA) [Mass fraction] 95 % Dr. Tequila Renee MD Work Phone: [facility] 01-09-2025 08:35-0400 Systolic blood pressure 95 mm[Hg] Dr. Tequila Renee MD Work Phone: 3(955)961-984860 [place] [address] 01-09-2025 06:49-0400 Body height 162.[address] Tequila Renee MD Work Phone: 1(185)146-259160 [place] [address] 01-09-2025 06:49-0400 Body mass index (BMI) [Ratio] 36.3 kg/m2 Dr. Tequila Renee MD Work Phone: 9(191)068-549560 [place] [address] 01-09-2025 06:49-0400 Body weight [address] Tequila Renee MD Work Phone: 2(663)282-260923 [place] [address] 11-11-2024 09:32-0500 Body mass index (BMI) [Ratio] 36.1 kg/m2 Dr. Tequila Renee MD Work Phone: 6(145)046-826060 [place] [address] 11-11-2024 09:32-0500 Body weight 95.[address] Tequila Renee MD Work Phone: 0(481)562-461560 [place] [address] 11-11-2024 09:32-0500 Diastolic blood pressure 70 mm[Hg] Dr. Tequila Renee MD Work Phone: 2(744)796-795660 [place] [address] 11-11-2024 09:32-0500 Heart rate 88 /min Dr. Tequila Renee MD Work Phone: 4(921)275-331860 [place] [address] 11-11-2024 09:32-0500 Systolic blood pressure 104 mm[Hg] Dr. Tequila Renee MD Work Phone: 3(734)952-614560 [place] [address] 10-24-2024 10:35-0500 Body temperature 98.9 [degF] Dr. Tequila Renee MD Work Phone: 9(761)798-967660 [place] [address] 10-24-2024 10:35-0500 Diastolic blood pressure 71 mm[Hg] Dr. Tequila Renee MD Work Phone: 0(752)142-423460 [place] [address] 10-24-2024 10:35-0500 Heart rate 69 /min Dr. Tequila Renee MD Work Phone: [facility] 10-24-2024 10:35-0500 Respiratory rate 16 /min Dr. Tequila Renee MD Work Phone: [facility] 10-24-2024 10:35-0500 SaO2% (BldA) [Mass fraction] 95 % Dr. Tequila Renee MD Work Phone: [facility] 10-24-2024 10:35-0500 Systolic blood pressure 103 mm[Hg] Dr. Tequila Renee MD Work Phone: 3(850)260-874960 [place] [address] 10-24-2024 09:17-0500 Body mass index (BMI) [Ratio] 38.4 kg/m2 Dr. Tequila Renee MD Work Phone: 9(037)010-102860 [place] [address] 10-24-2024 09:17-0500 Body weight 101.[address] Tequila Renee MD Work Phone: 0(806)899-852560 [place] [address] 12-07-2023 10:53-0500 Body temperature 97.7 [degF] Dr. Tequila Renee Work Phone: [facility] 12-07-2023 10:53-0500 Diastolic blood pressure 74 mm[Hg] Dr. Tequila Renee Work Phone: [facility] 12-07-2023 10:53-0500 Heart rate 72 /min Dr. Tequila Renee Work Phone: [facility] 12-07-2023 10:53-0500 Respiratory rate 16 /min Dr. Tequila Renee Work Phone: [facility] 12-07-2023 10:53-0500 SaO2% (BldA) [Mass fraction] 98 % Dr. Tequila Renee Work Phone: [facility] 12-07-2023 10:53-0500 Systolic blood pressure 107 mm[Hg] Dr. Tequila Renee Work Phone: [facility] 12-07-2023 09:26-0500 Body height 162.[address] Tequila Renee Work Phone: 1(724)908-424160 [place] [address] 12-07-2023 09:26-0500 Body mass index (BMI) [Ratio] 29.7 kg/m2 Dr. Tequila Renee Work Phone: [facility] 12-07-2023 09:26-0500 Body weight 78.[address] Tequila Renee Work Phone: [facility] 11-16-2023 09:52-0500 Body mass index (BMI) [Ratio] 29 kg/m2 Dr. Tequila Renee Work Phone: [facility] 11-16-2023 09:52-0500 Body weight 76.[address] Tequila Renee Work Phone: 9(600)296-406260 [place] [address] 11-16-2023 09:52-0500 Diastolic blood pressure 61 mm[Hg] Dr. Tequila Renee Work Phone: 8(884)629-046560 [place] [address] 11-16-2023 09:52-0500 Heart rate 73 /min Dr. Tequila Renee Work Phone: 7(064)582-740960 [place] [address] 11-16-2023 09:52-0500 Systolic blood pressure 97 mm[Hg] Dr. Tequila Renee Work Phone: 8(464)546-806260 [place] [address] 09-16-2023 07:15-0500 Body temperature 97.5 [degF] Dr. Tequila Renee Work Phone: 4(273)736-454260 [place] [address] 09-16-2023 07:15-0500 Diastolic blood pressure 60 mm[Hg] Dr. Tequila Renee Work Phone: 3(751)330-103360 [place] [address] 09-16-2023 07:15-0500 Heart rate 72 /min Dr. Tequila Renee Work Phone: [facility] 09-16-2023 07:15-0500 Respiratory rate 16 /min Dr. Tequila Renee Work Phone: 0(844)011-337560 [place] [address] 09-16-2023 07:15-0500 SaO2% (BldA) [Mass fraction] 100 % Dr. Tequila Renee Work Phone: [facility] 09-16-2023 07:15-0500 Systolic blood pressure 91 mm[Hg] Dr. Tequila Renee Work Phone: [facility] 09-16-2023 06:00-0500 Body height 162.[address] Tequila Renee Work Phone: [facility] 09-16-2023 06:00-0500 Body mass index (BMI) [Ratio] 27.3 kg/m2 Dr. Tequila Renee Work Phone: [facility] 09-16-2023 06:00-0500 Body weight 72.[address] Tequila Renee Work Phone: [facility] 09-07-2023 14:02-0500 Body height 162.[address] Tequila Renee Work Phone: 5(470)783-118160 [place] [address] 09-07-2023 14:02-0500 Body mass index (BMI) [Ratio] 27.8 kg/m2 Dr. Tequila Renee Work Phone: [facility] 09-07-2023 14:02-0500 Body temperature 97.2 [degF] Dr. Tequila Renee Work Phone: [facility] 09-07-2023 14:02-0500 Body weight 73.[address] Tequila Renee Work Phone: [facility] 09-07-2023 14:02-0500 Diastolic blood pressure 79 mm[Hg] Dr. Tequila Renee Work Phone: [facility] 09-07-2023 14:02-0500 Heart rate 72 /min Dr. Tequila Renee Work Phone: [facility] 09-07-2023 14:02-0500 Respiratory rate 17 /min Dr. Tequila Renee Work Phone: [facility] 09-07-2023 14:02-0500 SaO2% (BldA) [Mass fraction] 99 % Dr. Tequila Renee Work Phone: [facility] 09-07-2023 14:02-0500 Systolic blood pressure 122 mm[Hg] Dr. Tequila Renee Work Phone: [facility] 08-26-2023 11:40-0500 Body mass index (BMI) [Ratio] 27.6 kg/m2 Dr. Tequila Renee Work Phone: [facility] 08-26-2023 11:40-0500 Body weight 73.[address] Tequila Renee Work Phone: [facility] 08-26-2023 11:40-0500 Diastolic blood pressure 76 mm[Hg] Dr. Tequila Renee Work Phone: [facility] 08-26-2023 11:40-0500 Heart rate 74 /min Dr. Tequila Renee Work Phone: [facility] 08-26-2023 11:40-0500 Systolic blood pressure 109 mm[Hg] Dr. Tequila Renee Work Phone: 0(697)243-037960 [place] [address] 05-22-2023 08:31-0400 Body mass index (BMI) [Ratio] 31.1 kg/m2 Dr. Tequila Renee Work Phone: 7(516)894-046760 [place] [address] 05-22-2023 08:31-0400 Body weight 82.[address] Tequila Renee Work Phone: 3(538)310-565460 [place] [address] 05-22-2023 08:31-0400 Diastolic blood pressure 58 mm[Hg] Dr. Tequila Renee Work Phone: 1(343)780-894160 [place] [address] 05-22-2023 08:31-0400 Heart rate 78 /min Dr. Tequila Renee Work Phone: [facility] 05-22-2023 08:31-0400 Systolic blood pressure 121 mm[Hg] Dr. Tequila Renee Work Phone: [facility] 02-11-2023 06:57-0400 Body height 162.[address] Tequila Renee Work Phone: 3(894)542-062360 [place] [address] 02-11-2023 06:57-0400 Body mass index (BMI) [Ratio] 36.8 kg/m2 Dr. Tequila Renee Work Phone: 9(585)917-229660 [place] [address] 02-11-2023 06:57-0400 Body temperature 96.3 [degF] Dr. Tequila Renee Work Phone: [facility] 02-11-2023 06:57-0400 Body weight 97.[address] Tequila Renee Work Phone: [facility] 02-11-2023 06:57-0400 Diastolic blood pressure 72 mm[Hg] Dr. Tequila Renee Work Phone: [facility] 02-11-2023 06:57-0400 Heart rate 78 /min Dr. Tequila Renee Work Phone: [facility] 02-11-2023 06:57-0400 Respiratory rate 18 /min Dr. Tequila Renee Work Phone: [facility] 02-11-2023 06:57-0400 SaO2% (BldA) [Mass fraction] 98 % Dr. Tequila Renee Work Phone: [facility] 02-11-2023 06:57-0400 Systolic blood pressure 104 mm[Hg] Dr. Tequila Renee Work Phone: [facility] 02-06-2023 14:14-0400 Body height 162.[address] Tequila Renee Work Phone: [facility] 02-06-2023 14:14-0400 Body mass index (BMI) [Ratio] 37.8 kg/m2 Dr. Tequila Renee Work Phone: [facility] 02-06-2023 14:14-0400 Body temperature 96.8 [degF] Dr. Tequila Renee Work Phone: [facility] 02-06-2023 14:14-0400 Body weight 99.[address] Tequila Renee Work Phone: [facility] 02-06-2023 14:14-0400 Diastolic blood pressure 81 mm[Hg] Dr. Tequila Renee Work Phone: [facility] 02-06-2023 14:14-0400 Heart rate 70 /min Dr. Tequila Renee Work Phone: [facility] 02-06-2023 14:14-0400 Respiratory rate 18 /min Dr. Tequila Renee Work Phone: [facility] 02-06-2023 14:14-0400 SaO2% (BldA) [Mass fraction] 97 % Dr. Tequila Renee Work Phone: [facility] 02-06-2023 14:14-0400 Systolic blood pressure 116 mm[Hg] Dr. Tequila Renee Work Phone: 0(940)854-861272 [place] [address] 02-06-2023 08:50-0400 Body mass index (BMI) [Ratio] 37.6 kg/m2 Dr. Tequila Renee Work Phone: 5(924)571-760860 [place] [address] 02-06-2023 08:50-0400 Body weight 99.[address] Tequila Renee Work Phone: 2(600)106-619660 [place] [address] 02-06-2023 08:50-0400 Diastolic blood pressure 76 mm[Hg] Dr. Tequila Renee Work Phone: 3(616)120-356360 [place] [address] 02-06-2023 08:50-0400 Heart rate 72 /min Dr. Tequila Renee Work Phone: 7(549)000-937360 [place] [address] 02-06-2023 08:50-0400 Systolic blood pressure 118 mm[Hg] Dr. Tequila Renee Work Phone: 8(240)415-191160 [place] [address] 02-02-2023 10:50-0400 Body temperature 96.9 [degF] Dr. Tequila Renee Work Phone: [facility] 02-02-2023 10:50-0400 Diastolic blood pressure 57 mm[Hg] Dr. Tequila Renee Work Phone: [facility] 02-02-2023 10:50-0400 Heart rate 73 /min Dr. Tequila Renee Work Phone: 1(947)294-495460 [place] [address] 02-02-2023 10:50-0400 Respiratory rate 16 /min Dr. Tequila Renee Work Phone: [facility] 02-02-2023 10:50-0400 SaO2% (BldA) [Mass fraction] 97 % Dr. Tequila Renee Work Phone: 1(269)241-505172 [place] [address] 02-02-2023 10:50-0400 Systolic blood pressure 107 mm[Hg] Dr. Tequila Renee Work Phone: 4(686)767-822360 [place] [address] 02-02-2023 09:49-0400 Body height 162.[address] Tequila Renee Work Phone: 9(488)618-195460 [place] [address] 02-02-2023 09:49-0400 Body mass index (BMI) [Ratio] 37.8 kg/m2 Dr. Tequila Renee Work Phone: 4(019)615-416260 [place] [address] 02-02-2023 09:49-04[address] Body weight [address] Tequila Renee Work Phone: 6(176)469-910323 [place] [address] 01-23-2023 08:10-0400 Body mass index (BMI) [Ratio] 39.5 kg/m2 Dr. Tequila Renee Work Phone: 3(034)824-713960 [place] [address] 01-23-2023 08:10-0400 Body weight 104.[address] Tequila Renee Work Phone: 3(871)553-825460 [place] [address] 01-23-2023 08:10-0400 Diastolic blood pressure 82 mm[Hg] Dr. Tequila Renee Work Phone: 2(804)550-209560 [place] [address] 01-23-2023 08:10-0400 Systolic blood pressure 113 mm[Hg] Dr. Tequila Renee Work Phone: 5(712)534-525060 [place] [address] 01-13-2023 08:27-0400 Body height 160 cm Tequila Renee MD Work Phone: 4(377)276-307772 [place] [address] 01-13-2023 08:27-0400 Body mass index (BMI) [Ratio] 40.07 kg/m2 Tequila Renee MD Work Phone: 2(887)778-621072 [place] [address] 01-13-2023 08:27-0400 Body weight 102.6 kg Tequila Renee MD Work Phone: 1(520)842-516472 [place] [address] 01-13-2023 08:27-0400 Diastolic blood pressure 80 mm[Hg] Tequila Renee MD Work Phone: [facility] 01-13-2023 08:27-0400 Heart rate 96 /min Tequila Renee MD Work Phone: [facility] 01-13-2023 08:27-0400 Systolic blood pressure 130 mm[Hg] Tequila Renee MD Work Phone: [facility] 11-25-2022 08:19-0500 Body height 161.29 cm Tequila Renee Work Phone: [facility] Work Phone: 11-25-2022 08:19-0500 Body mass index (BMI) [Ratio] 39.81 kg/m2 Tequila Renee Work Phone: [facility] Work Phone: 11-25-2022 08:19-0500 Body surface area Derived from formula 2.06 m2 Tequila Renee Work Phone: [facility] Work Phone: 11-25-2022 08:19-0500 Body weight 103.56 kg Tequila Renee Work Phone: [facility] Work Phone: 11-25-2022 08:19-0500 Diastolic blood pressure 78 mm[Hg] Tequila Renee Work Phone: [facility] Work Phone: 11-25-2022 08:19-0500 Heart rate 92 /min Tequila Renee Work Phone: [facility] Work Phone: 11-25-2022 08:19-0500 SaO2% (BldA) [Mass fraction] 99 % Tequila Renee Work Phone: [facility] Work Phone: 11-25-2022 08:19-0500 Systolic blood pressure 110 mm[Hg] Tequila Renee Work Phone: [facility] Work Phone: 09-02-2022 17:00-0500 Body temperature 98.6 [degF] Dr. Tequila Renee Work Phone: [facility] 09-02-2022 17:00-0500 Diastolic blood pressure 88 mm[Hg] Dr. Tqeuila Renee Work Phone: [facility] 09-02-2022 17:00-0500 Heart rate 122 /min Dr. Tequila Renee Work Phone: [facility] 09-02-2022 17:00-0500 Respiratory rate 20 /min Dr. Tequila Renee Work Phone: [facility] 09-02-2022 17:00-0500 SaO2% (BldA) [Mass fraction] 95 % Dr. Tequila Renee Work Phone: [facility] 09-02-2022 17:00-0500 Systolic blood pressure 138 mm[Hg] Dr. Tequila Renee Work Phone: [facility] 07-24-2022 15:48-0400 Body height 162.[address] Tequila Renee Work Phone: [facility] Work Phone: 07-24-2022 15:48-0400 Body mass index (BMI) [Ratio] 37.5 kg/m2 Dr. Tequila Renee Work Phone: [facility] Work Phone: 07-24-2022 15:48-0400 Body weight 99.[address] Tequila Renee Work Phone: [facility] Work Phone: 07-24-2022 15:48-0400 Diastolic blood pressure 80 mm[Hg] Dr. Tequila Renee Work Phone: [facility] Work Phone: 07-24-2022 15:48-0400 Systolic blood pressure 120 mm[Hg] Dr. Tequila Renee Work Phone: [facility] Work Phone: 01-08-2022 09:03-0400 Body height 161.29 cm Tequila Renee Work Phone: [facility] 205 DO Work Phone: 01-08-2022 09:03-0400 Body mass index (BMI) [Ratio] 38.36 kg/m2 Tequila Renee Work Phone: [facility] 205 DO Work Phone: 01-08-2022 09:03-0400 Body surface area Derived from formula 2.03 m2 Tequila Renee Work Phone: [facility] 205 DO Work Phone: 01-08-2022 09:03-0400 Body weight 99.79 kg Tequila Renee Work Phone: [facility] 205 DO Work Phone: 01-08-2022 09:03-0400 Diastolic blood pressure 74 mm[Hg] Tequila Renee Work Phone: [facility] 205 DO Work Phone: 01-08-2022 09:03-0400 Heart rate 84 /min Tequila Renee Work Phone: [facility] 205 DO Work Phone: 01-08-2022 09:03-0400 Systolic blood pressure 126 mm[Hg] Tequila Renee Work Phone: [facility] 205 DO Work Phone: Encounters Encounter Date Encounter Type Care Provider Facility Start: 06-16-2025 ambulatory Tequila Renee Facility: [facility] Start: 05-22-2025 End: 05-22-2025 Admission to same day surgery center Dr. Philip Gerber MD -[facility] Start: 05-22-2025 End: 05-22-[address] Tequila Renee MD Work Phone: -[facility] Start: 05-08-2025 End: 05-08-2025 Admission to same day surgery center Dr. Diaz Kaiser MD -[facility] Start: 05-08-2025 End: 05-08-[address] Tequila Renee MD Work Phone: -[facility] Start: 04-28-2025 End: 04-28-[address] Ottoniel Bueno MD -[facility] Work Phone: Start: 04-28-2025 End: 04-28-[address] Tequila Renee MD Work Phone: -[facility] Start: 04-25-2025 End: 04-25-2025 ambulatory Tequila Renee Facility:[facility] Start: 04-25-2025 End: 04-25-2025 Non-patient / Non-visit Dr. Blade White MD -[facility] Work Phone: Start: 04-24-2025 End: 04-24-[address] Tequila Renee MD Work Phone: -Radiology [facility] Start: 04-24-2025 End: 04-24-[address] Ottoniel Bueno MD -Radiology [facility] Work Phone: Start: 04-24-2025 End: 04-24-2025 ambulatory Tequila Renee Facility:[facility] Start: 04-17-2025 End: 04-17-2025 Patient encounter procedure Darcie COLBERT -[facility] Work Phone: Start: 04-17-2025 End: 04-17-[address] Tequila Renee MD Work Phone: -[facility] Start: 03-30-2025 End: 03-30-2025 ambulatory TEQUILA Donato [facility] Start: 03-30-2025 End: 03-30-2025 Transitional care manage srvc 14 day discharge Tequila Renee MD Work Phone: [facility] Comment on above: Nausea (Primary Dx); Ischemic colitis (Multi) Start: 03-28-2025 Non-patient / Non-visit Dr. Bry Dominguez DO [facility] Work Phone: Start: 03-27-2025 ambulatory Tequila Renee Facility: [facility] Start: 03-27-2025 Non-patient / Non-visit Dr. Bry Dominguez DO [facility] Work Phone: Start: 03-26-2025 Non-patient / Non-visit Dr. Bry Dominguez [facility] Work Phone: Start: 03-25-2025 Non-patient / Non-visit Chele Manriquez DO [facility] Start: 03-25-2025 Non-patient / Non-visit Dr. Bry Dominguez [facility] Work Phone: Start: 03-25-2025 ambulatory Bry Dominguez Facility:[facility] Start: 03-25-2025 End: 03-28-2025 Evaluation and management of inpatient Dr. Jason Watters DO [facility] Work Phone: Start: 02-14-2025 ambulatory Tequila Renee Facility: [facility] Start: 02-08-2025 End: 02-08-[address] Tequila Renee MD Work Phone: [facility] Work Phone: Start: 02-08-2025 End: 02-08-[address] Navya Mead MD -Laboratory, Specimen Work Phone: Start: 02-08-2025 End: 02-08-[address] Navya Mead MD -[facility] Work Phone: Start: 02-08-2025 End: 02-08-2025 ambulatory Tequila Renee Facility:[facility] Start: 02-08-2025 End: 02-08-2025 ambulatory Tequila Renee Facility:[facility] Start: 02-03-2025 End: 02-03-2025 Patient encounter status Tequila Renee MD Work Phone: [facility] Work Phone: Start: 02-03-2025 End: 02-03-2025 Periodic preventive med est patient 40-64yrs Tequila Renee MD Work Phone: [facility] Comment on above: Screening breast exa mination (Primary Dx); Wellness examination Start: 02-03-2025 End: 02-03-2025 ambulatory TEQUILA Donato [facility] Start: 01-31-2025 End: 01-31-[address] Navya Mead MD -[facility] Work Phone: Start: 01-31-2025 End: 01-31-2025 ambulatory Tequila Renee Facility:[facility] Start: 01-09-2025 End: 01-09-2025 Admission to same day surgery center Dr. Philip Gerber MD -[facility] Start: 01-09-2025 End: 01-09-[address] Tequila Renee MD Work Phone: [facility] Work Phone: Start: 01-06-2025 End: 01-06-[address] Tequila Renee MD Work Phone: [facility] Work Phone: Start: 01-06-2025 End: 01-06-[address] Philip Gerber MD -[facility] Work Phone: Start: 01-06-2025 End: 01-06-2025 ambulatory Philip Gerber Facility:[facility] Start: 01-02-2025 End: 01-02-[address] Tequila Renee MD Work Phone: [facility] Work Phone: Start: 01-02-2025 End: 01-02-[address] Philip Gerber MD -Physical Therapy Work Phone: Start: 01-02-[address] Elisa Gerber MD -Physical Therapy Work Phone: Start: 11-11-2024 End: 11-11-[address] Navya Mead MD -[facility] Start: 11-11-2024 End: 11-11-[address] Navya Mead MD -[facility] Work Phone: Start: 11-11-2024 End: 11-11-2024 ambulatory Tequila Renee Facility:[facility] Start: 11-11-2024 End: 11-11-2024 ambulatory Tequila Renee Facility:[facility] Start: 10-24-2024 End: 10-24-2024 Admission to same day surgery center Dr. Philip Gerber MD -[facility] Start: 10-24-2024 End: 10-24-2024 ambulatory Tequila Renee Facility:[facility] Start: 06-20-2024 End: 06-20-2024 ambulatory Tequila Renee Facility:[facility] Start: 12-07-2023 End: 12-07-2023 Admission to same day surgery center Dr. Tequila Renee Work Phone: [facility]-Surgical Day Care Start: 12-07-2023 End: 12-07-[address] Tequila Renee Work Phone: [facility] Work Phone: Start: 11-16-2023 End: 11-16-[address] Tequila Renee Work Phone: [facility] Work Phone: Start: 09-23-2023 End: 09-23-[address] Tequila Renee Work Phone: [facility] Work Phone: Start: 09-23-2023 End: 09-23-[address] Tequila Renee Work Phone[facility] Start: 09-16-2023 Non-patient / Non-visit Dr. Tequila Renee Work Phone: [facility] Start: 09-16-2023 End: 09-16-2023 Admission to same day surgery center Dr. Tequila Renee Work Phone: [facility]-S[facility] Day Care Start: 09-16-2023 End: 09-16-[address] Tequila Renee Work Phone: [facility] Work Phone: Start: 09-09-2023 End: 09-09-2023 Non-patient / Non-visit Dr. Tequila Renee Work Phone: [facility] Work Phone: Start: 09-09-2023 End: 09-09-[address] Tequila Renee Work Phone: [facility] Work Phone: Start: 09-09-2023 End: 09-09-[address] Tequila Renee Work Phone: [facility]-Ultrasound, [facility] Work Phone: Start: 09-07-2023 End: 09-07-[address] Tequila Renee Work Phone: [facility] Work Phone: Start: 08-26-2023 End: 08-26-[address] Tequila Renee Work Phone: [facility] Work Phone: Start: 08-03-2023 End: 08-03-[address] Tequila Renee Work Phone: [facility] Work Phone: Start: 06-25-2023 End: 06-25-[address] Tequila Renee Work Phone: [facility] Work Phone: Start: 06-25-2023 End: 06-25-[address] Tequila Renee Work Phone: [facility]-Physical Therapy Work Phone: Start: 06-25-[address] Tequila Renee Work Phone: [facility]-Physical Therapy Work Phone: Start: 05-22-2023 End: 05-22-[address] Tequila Renee Work Phone: [facility] Work Phone: Start: 03-19-2023 End: 03-19-[address] Tequila Renee Work Phone: [facility] Work Phone: Start: 03-19-2023 End: 03-19-[address] Tequila Renee Work Phone: [facility]-Outpatient Breast Imaging Start: 03-05-2023 End: 03-05-[address] Tequila Renee Work Phone: [facility] Work Phone: Start: 03-05-2023 End: 03-05-[address] Tequila Renee Work Phone: [facility] Start: 02-21-2023 End: 02-21-[address] Tequila Renee Work Phone: [facility] Work Phone: Start: 02-21-2023 End: 02-21-[address] Tequila Renee Work Phone: [facility] Start: 02-11-2023 End: 02-11-[address] [facility]equ[facility] Start: 02-06-2023 End: 02-06-2023 Emergency department patient visit Dr. Tequila Renee Work Phone: [facility]-Emergency Department Start: 02-06-2023 End: 02-06-[address] Tequila Renee Work Phone: [facility] Start: 02-03-2023 Non-patient / Non-visit Dr. Tequila Renee Work Phone: [facility] Start: 02-03-2023 End: 02-03-[address] Tequila Renee Work Phone: [facility] Work Phone: Start: 02-03-2023 End: 02-03-[address] Tequila Renee Work Phone: [facility]-Cardiovascular Services Start: 02-02-2023 End: 02-02-2023 Admission to same day surgery center Dr. Tequila Renee Work Phone: [facility]-Surgical Day Care Start: 02-02-2023 End: 02-02-[address] Tequila Renee Work Phone: [facility] Work Phone: Start: 01-23-2023 End: 01-23-[address] Tequila Renee Work Phone: [facility] Start: 01-13-2023 End: 01-13-2023 Office outpatient visit 15 minutes Tequila Renee MD Work Phone: [facility] Comment on above: Dyspnea and respirat ory abnormalities (Primary Dx); Chronic cough; Gastroesophageal reflux disease without esophagitis; Class 3 severe obesity due to excess calories without serious comorbidity with body mass index (BMI) of 40.0 to 44.9 in adult ([facility]) Start: 12-10-2022 Non-patient / Non-visit Dr. Tequila Renee Work Phone: [facility] Start: 12-09-2022 End: 12-09-[address] Tequila Renee Work Phone: [facility] Work Phone: Start: 12-09-2022 End: 12-09-[address] Tequila Renee Work Phone: [facility]-Pulmonary Services/Neurology Start: 12-05-2022 End: 12-05-2022 Non-patient / Non-visit Dr. Tequila Renee Work Phone: [facility] Start: 12-05-2022 End: 12-05-[address] Tequila Renee Work Phone: [facility] Work Phone: Start: 12-05-2022 End: 12-05-[address] Tequila Renee Work Phone: [facility]-Pulmonary Services/Neurology Start: 12-04-2022 End: 12-04-[address] Tequila Renee Work Phone: [facility] Start: 12-01-2022 AUDIT Tequila Renee Work Phone: [facility] Work Phone: Start: 11-25-2022 Office outpatient visit 25 minutes Tequila Renee Work Phone: [facility] Work Phone: Start: 11-25-2022 ambulatory MD TEQUILA RENEE Facility:[id number] Start: 09-16-[address] Tequila Renee Work Phone: [facility]-Physical Therapy Start: 09-03-[address] Tequila Renee Work Phone: [facility]-Physical Therapy Start: 09-02-2022 End: 09-02-[address] Tequila Renee Work Phone: [facility] Work Phone: Start: 09-02-2022 End: 09-02-[address] Tequila Renee Work Phone: [facility] Start: 07-24-2022 End: 07-24-[address] Tequila Renee Work Phone: [facility] Start: 07-09-2022 AUDIT Tequila Renee Work Phone: [facility] 205 DO Work Phone: Start: 01-08-2022 Periodic preventive med est patient 40-64yrs Tequila Renee Work Phone: [facility] 205 DO Work Phone: Start: 01-08-2022 ambulatory MD TEQUILA RENEE Facility:[id number] Start: 12-25-2021 AUDIT Tequila Renee Work Phone: [facility] 205 DO Work Phone: Start: 12-11-2017 End: 12-12-2017 Ambulatory Tequila Renee Facility:[facility] Start: 11-19-2017 End: 11-19-2017 Ambulatory Tequila Renee Facility:[facility] Start: 07-01-2017 End: 07-02-2017 Ambulatory Tequila Renee Facility:[facility] Procedures Date Procedure Procedure Detail Performing Clinician Start: 05-22-2025 Local anesthetic sac ral epidural block Dr. Tequila Renee MD Work Phone: Start: 05-08-[address] Tequila Renee MD Work Phone: Start: 04-24-2025 X-ray of lumbosacral spine Dr. [...] 09-16-2033 Screening for malignant neoplasm of colon [facility] Start: 11-11-2027 Diabetes mellitus screening Diabetes Screening [facility] Start: 02-13-2026 End: 02-13-2026 Patient encounter procedure 02/13/2026 8:00 AM EDT Office Visit [place] [address] [id number] Tequila Renee MD [address] [address] [facility] Start: 02-04-2026 Yearly Adult Physical Yearly Adult Physical [facility] Start: 05-22-2025 Injection of spinal epidural space [facility] Start: 05-22-2025 Injection using fluoroscopic guidance [facility] Start: 05-22-2025 Patient discharge [facility] Start: 05-08-2025 Anesthesia intraoral with biopsy nos ANESTH PROCEDURE ON MOUTH [facility] Start: 05-08-2025 Excision/destruction lesion pharynx any method EXCISE PHARYNX LESION [facility] Start: 05-08-2025 Patient discharge [facility] Start: 05-08-2025 Ambulation without limitation [facility] Start: 05-08-2025 Elevation of head of bed [facility] Start: 05-08-2025 Medical regimen orders management [facility] Start: 05-08-2025 Medication education [facility] Start: 05-08-2025 Procedure discontinued [facility] Start: 05-08-2025 Taking patient vital signs [facility] Start: 05-08-2025 Vital signs measurements [facility] Start: 03-28-2025 Patient discharge [facility] Start: 03-25-2025 Application of intermittent pneumatic compression device [facility] Start: 03-25-2025 Following clinical pathway protocol [facility] Start: 03-25-2025 Cardiac monitoring [facility] Start: 03-25-2025 Catheterization of vein [facility] Start: 03-25-2025 Consultation [facility] Start: 03-25-2025 Notification of physician [facility] Start: 03-25-2025 Referral to gastroenterology service [facility] Start: 03-25-2025 Vital signs measurements [facility] Start: 03-25-2025 [facility] Start: 03-25-2025 Thyroid stimulating hormone measurement [facility] Start: 03-25-2025 Admission procedure [facility] Start: 03-24-2025 End: 03-24-2025 Hospital admission, emergency, from emergency room, medical nature [facility] Start: 03-24-2025 Enteric precautions [facility] Start: 03-24-2025 [facility] Start: 03-24-2025 Measurement of occult blood in stool specimen using immunoassay [facility] Start: 03-24-2025 Bacteria identified in Blood by Culture Blood Culture [facility] Start: 03-24-2025 Blood culture Blood Culture [facility] Start: 02-08-2025 Bacteria identified in Urine by Culture Urine Culture [facility] Start: 02-08-2025 [facility] Start: 02-03-2025 End: 04-05-2026 DBT Breast - bilateral BI mammo bilateral screening tomosynthesis Imaging Routine Screening breast examination Expected: 02/03/2025, Expires: 04/05/2026 [facility] Service Area Work Phone: Comment on above: Expected: 02/03/2025, Expires: Start: 01-31-2025 Patient referral [facility] Work Phone: Start: 01-09-2025 Njx anes&/strd w/img tfrml edrl lmbr/sac 1 lvl NJX AA&/STRD TFRM EPI L/S 1 [facility] Start: 01-09-2025 Injection of spinal epidural space [facility] Start: 01-09-2025 X-ray of lumbar spine, two or three views Lumbar Spine 2 or 3 Views [facility] Start: 01-09-2025 Patient discharge [facility] Start: 10-24-2024 Patient discharge [facility] Start: 06-05-2024 COVID-19 Vaccine (4 - 2024-25 season) COVID-19 Vaccine ( season) [facility] Start: 03-19-2024 Screening for malignant neoplasm of breast Mammogram [facility] Start: 12-07-2023 Injection of spinal epidural space [facility] Start: 12-07-2023 Injection using fluoroscopic guidance [facility] Start: 12-07-2023 Patient discharge [facility] Start: 09-16-2023 Colonoscopy flx dx w/collj spec when pfrmd DIAGNOSTIC COLONOSCOPY [facility] Start: 09-16-2023 Egd transoral biopsy single/multiple EGD BIOPSY SINGLE/MULTIPLE [facility] Start: 09-16-2023 Patient discharge [facility] Start: 02-02-2023 Njx dx/ther sbst intrlmnr lmbr/sac w/img gdn NJX INTERLAMINAR LMBR/SAC [facility] Start: 02-02-2023 Injection using fluoroscopic guidance [facility] Start: 02-02-2023 Vitamin D, 1,25-dihydroxy measurement [facility] Start: 02-02-2023 Patient discharge [facility] Start: 01-23-2023 Patient referral [facility] Work Phone: Start: 01-13-2023 End: 01-14-2024 Heart Transthoracic Transthoracic Echo (TTE) Complete Echocardiography Routine Dyspnea and respiratory abnormalities Expected: 01/13/2023, Expires: 01/14/2024 [facility] Service Area Work Phone: Comment on above: Expected: 01/13/2023, Expires: Start: 01-08-2023 FUV, Provider: Tequila Renee, Status: Pen, Time: 9:00 AM FUV, Provider: Tequila Renee, Status: Pen, Time: 9:00 AM [facility] 205 DO Work Phone: Start: 2022 Pneumococcal vaccination Pneumococcal Vaccine (1 of 1 - PCV) [facility] Start: 2022 Zoster Vaccines (1 of 2) Zoster Vaccines (1 of 2) [facility] Start: 01-07-2022 EPV, Provider: Tequila Renee, Status: Pen, Time: 8:40 AM EPV, Provider: Tequila Renee, Status: Pen, Time: 8:40 AM [facility] 205 DO Work Phone: Start: 10-11-2021 COVID-19 Vaccine (4 - Booster for Moderna series) COVID-19 Vaccine (4 - Booster for Moderna series) [facility] Start: 2012 Screening for malignant neoplasm of breast Mammogram [facility] Start: 1994 DTaP/Tdap/Td Vaccines (1 - Tdap) DTaP/Tdap/Td Vaccines (1 - Tdap) [facility] Start: 1993 Screening for malignant neoplasm of cervix [facility] Start: 1991 Hepatitis B Vaccines (1 of 3 - 19+ 3-dose series) Hepatitis B Vaccines (1 of 3 - 19+ 3-dose series) [facility] Start: 1990 Hepatitis C screening Hepatitis C Screening [facility] Start: 1973 MMR Vaccines (1 of 1 - Standard series) MMR Vaccines (1 of 1 - Standard series) [facility] Start: 1972 Hepatitis B Vaccines (1 of 3 - 3-dose series) Hepatitis B Vaccines (1 of 3 - 3-dose series) [facility] Start: 1972 HIV screening HIV Screening [facility] Start: 1972 Lipid panel Lipid Panel [facility] Start: 1972 Screening for malignant neoplasm of colon [facility] Start: 1972 Yearly Adult Physical Yearly Adult Physical [facility] CBC W Auto Different ial panel - Blood [facility] Clostridioides diffi cile DNA [Presence] in Unspecified specimen by JUAN LUIS with probe detection [facility] Lactic acid measurement [facility] Nucleic acid assay [facility] Patient Education [facility] Work Phone: Patient referral [facility] Work Phone: Polysomnography [facility] Urine culture [facility] Immunizations Immunization Date Immunization Notes Care Provider Rosalie miller 08-29-2024 influenza, seasonal, injectable, preservative free Dr. Tequila Renee MD Work Phone: [facility] 11-10-2023 influenza, injectabl e, quadrivalent, preservative free Dr. Tequila Renee Work Phone: [facility] 07-04-2022 influenza, injectabl e, quadrivalent, preservative free Dr. Tequila Renee Work Phone: [facility] 07-04-2022 influenza, seasonal, injectable Dr. Tequila Renee Work Phone: [facility] 08-16-2021 Moderna COVID-19 Vaccine 100 MCG/0.5ML Intramuscular Suspension Tequila Renee Work Phone: [facility] 07-30-2021 influenza, injectabl e, quadrivalent, preservative free Dr. Tequila Renee Work Phone: [facility] 07-30-2021 influenza, seasonal, injectable Dr. Tequila Renee Work Phone: [facility] 07-30-2021 influenza, seasonal, injectable, preservative free Tequila Renee Work Phone: [facility] 10-31-2020 Moderna COVID-19 Vaccine 100 MCG/0.5ML Intramuscular Suspension Tequila Renee Work Phone: [facility] 10-03-2020 Moderna COVID-19 Vaccine 100 MCG/0.5ML Intramuscular Suspension Tequila Renee Work Phone: [facility] 08-09-2020 influenza, injectabl e, quadrivalent, preservative free Dr. Tequila Renee Work Phone: [facility] 08-09-2020 influenza, seasonal, injectable Dr. Tequila Renee Work Phone: [facility] 06-30-2019 influenza, injectabl e, quadrivalent, preservative free Dr. Tequila Renee Work Phone: [facility] 06-30-2019 influenza, seasonal, injectable Dr. Tequila Renee Work Phone: [facility] 08-11-2018 influenza, injectabl e, quadrivalent, preservative free Dr. Tequila Renee Work Phone: [facility] 08-11-2018 influenza, seasonal, injectable Dr. Tequila Renee Work Phone: [facility] 09-02-2017 influenza, injectabl e, quadrivalent, preservative free Dr. Tequila Renee Work Phone: [facility] 09-02-2017 influenza, seasonal, injectable Dr. Tequila Renee Work Phone: [facility] 07-03-2016 influenza, injectabl e, quadrivalent, preservative free Dr. Tequila Renee Work Phone: [facility] 07-03-2016 influenza, seasonal, injectable Dr. Tequila Renee Work Phone: [facility] 08-01-2015 influenza, injectabl e, quadrivalent, preservative free Dr. Tequila Renee Work Phone: [facility] 08-01-2015 influenza, seasonal, injectable Dr. Tequila Renee Work Phone: [facility] 07-05-2014 influenza, injectabl e, quadrivalent, preservative free Dr. Tequila Renee Work Phone: [facility] 07-05-2014 influenza, seasonal, injectable Dr. Tequila Renee Work Phone: [facility] Payers Date Payer Category Payer Self-pay [id number] 2022 Managed Care (Private) [facility] [id number] 2022 Unknown [id number] 2017 Unknown 2015 Unknown [id number] 1972 Unknown [id number] 2.16.840.1.137827.3.579.2. 356 1972 Unknown [id number] 2.16.840.1.100328.3.579.2. 356 1972 Unknown [id number] 2.16.840.1.921079.3.579.2. 1244 1972 Unknown [id number] 2.16.840.1.551309.3.579.2. 1244 Unknown [id number] 2.16.840.1.803951.3.579.2. 462 Unknown [id number] 2.16.840.1.384762.3.579.2. 462 Unknown [id number] 2.16.840.1.600355.3.579.2. 462 Unknown [id number] 2.16.840.1.878999.3.579.2. 462 Unknown [id number] 2.16.840.1.909654.3.579.2. 462 Unknown [id number] 2.16.840.1.636202.3.579.2. 462 Unknown [id number] 2.16.840.1.750970.3.579.2. 462 Unknown [id number] 2.16.840.1.846152.3.579.2. 462 Unknown [id number] 2.16.840.1.130436.3.579.2. 462 Unknown [id number] 2.16.840.1.833487.3.579.2. 462 Unknown [id number] 2.16.840.1.419971.3.579.2. 462 Unknown [id number] 2.16.840.1.269156.3.579.2. 462 Unknown [id number] 2.16.840.1.965978.3.579.2. 462 Unknown [id number] 2.16.840.1.889844.3.579.2. 462 Unknown [id number] 2.16.840.1.474146.3.579.2. 462 Unknown [id number] 2.16.840.1.553191.3.579.2. 462 Unknown [id number] 2.16.840.1.612943.3.579.2. 462 Unknown [id number] 2.16.840.1.248397.3.579.2. 462 Unknown [id number] 2.16.840.1.619289.3.579.2. 462 Unknown [id number] 2.16.840.1.244238.3.579.2. 462 Unknown [id number] 2.16.840.1.619590.3.579.2. 462 Unknown [id number] 2.16.840.1.219269.3.579.2. 462 Unknown [id number] 2.16.840.1.460283.3.579.2. 462 Unknown [id number] 2.16.840.1.039551.3.579.2. 462 Unknown [id number] 2.16.840.1.034673.3.579.2. 462 Unknown [id number] 2.16.840.1.681863.3.579.2. 462 Social History Date Type Detail Facility Assertion Unknown if ever smoked [facility] Work Phone: Start: 01-13-2023 End: 02-07-2025 Caffeine use Caffeine use [facility] 205 DO Work Phone: Start: 09-02-2022 End: 11-16-2023 Tobacco smoking status NHIS Unknown if ever smoked [facility] Start: 10-31-2020 Non-smoker [facility] Start: 1970 Sex Assigned At Female W [facility] Start: 01-13-2023 End: 05-18-2025 Tobacco smoking status NHIS Never smoked tobacco [facility] Start: 01-13-2023 Tobacco use and exposure Smokeless tobacco non-user [facility] Work Phone: Start: 01-13-2023 End: 03-30-2025 Alcohol intake Lifetime non-drinker (finding) [facility] Work Phone: Start: 01-13-2023 End: 02-07-2025 Tobacco use panel [facility] Work Phone: Start: 1970 Sex Assigned At Not on file [facility] Work Phone: Start: 01-03-2023 End: 02-03-2025 Exposure to SARS-CoV-2 (event) Not sure [facility] Start: 01-09-2025 End: 01-11-2025 Sex Female (finding) [facility] NEGATED: Highlighted row [facility] Medical Equipment Procedure Code Equipment Code [...] Functional status Ambulates;Up a d tong;Bathroom Privilege [facility] Work Phone: NEGATED: Highlighted row Functional performance Functional status health issues are not documented Disease [facility] Work Phone: Mental Status Date Assessment Result Facility 05-22-2025 Cognitive function Voice/Name [facility] Work Phone: 05-08-2025 Cognitive function Voice/Name [facility] Work Phone: 03-28-2025 Cognitive function Voice/Name [facility] Work Phone: 01-09-2025 Cognitive function Voice/Name [facility] Work Phone: 10-24-2024 Cognitive function Voice/Name [facility] Work Phone: 12-07-2023 Cognitive function Voice/Name [facility] Work Phone: 09-16-2023 Cognitive function Voice/Name [facility] Work Phone: 02-02-2023 Cognitive function Voice/Name [facility] Work Phone: NEGATED: Highlighted row Cognitive function [Interpretation] Cognitive status health issues are not documented Disease [facility] Work Phone: Clinical Notes 12-10-2022 to 05-22-2025 Note Date & Type Note Facility 05-22-2025 Consult note [facility] 05-22-2025 Procedure note [facility] 05-22-2025 Consult note [facility] 05-08-2025 Consult note [facility] 05-08-2025 Consult note Note Date/Time May 08, 2025 10:29am [facility] Medical Records Department [address] [place] [address] Pre-Anesthesia Evaluation 05/08/25 0735 MR#: [id number] Acct: [id number] Name: BRISSA STEELE Rep #:[id number] : 1970 54 From: Gigi Corral MD PCP: Dr. Tequila Renee MD Status:REG [facility] Race: C Location: [place] [address] ASA Classification* ASA Classification ASA Classification: 2 [...] anesthesia risk assessments. Anesthesia Type Anesthesia Type: General Anesthesia Focused Assessment* Airway Assessment Mouth opens: >3 cm Mallampati Score: II Labs Anesthesia Preop lab: CBC WBC 6.2 K/mm3 (4.4-11.0) 04/24/25 13:38 04/24/25 RBC 4.46 M/mm3 (4.2-5.4) 04/24/25 13:38 04/24/25 Hgb 13.5 g/dL (12.0-15.0) 04/24/25 13:38 04/24/25 Hct 40.3 % (37-47) 04/24/25 13:38 04/24/25 Plt Count 205 K/mm3 (150-450) 04/24/25 13:38 04/24/25 CHEMISTRY Potassium 3.9 mmol/L (3.3-5.1) 04/24/25 13:38 04/24/25 Sodium 139 mmol/L (133-145) 04/24/25 13:38 04/24/25 Phosphorus 4.3 mg/dL (2.5-4.9) 05/11/18 05:53 05/11/18 BUN 11 mg/dL (4-19) 04/24/25 13:38 04/24/25 Creatinine 0.81 mg/dL (0.70-1.20) 04/24/25 13:38 04/24/25 Glucose 96 mg/dL (70-99) 04/24/25 13:38 04/24/25 TSH 0.364 uIU/mL (0.300-4.200) 03/25/25 01:35 03/06 10/29 COAG PT 15.0 SECONDS (11.7-14.9) H 03/24/25 23:12 03/06 Urine Test Negative Negative 05/12/16 07:15 05/12/16 Pre-Assessment Diagnosis/Proposed Procedure Planned Operative Procedure(s): EXCISION JUSTEN PHARYNGEAL NEOPLASM Anesthesia History Anesthesia History - pool attendant: Anesthesia History - pool attendant Hx Hospitalization Yes: ISCHEMIC COLITIS 03/202504/21/25 15:41 [...] take am of surgery PONV PONV - pool attendant: PONV - pool attendant Female Yes 04/21/25 15:41 HX of Motion Sickness No 04/21/25 15:41 HX of N/V After Surgery No 04/21/25 15:41 Non-Smoker Yes 04/21/25 15:41 Duration of Surgery greater No 04/21/25 15:41 than 60 minutes Number of Risk Factors 2 04/21/25 15:41 PONV Score Moderate Risk 04/21/25 15:41 Height & Weight Height & Weight: Anesthesia: Height & Weight Height 5 ft 4 in 04/28/25 08:07 Respiratory Assessment Respiratory Assessment - pool attendant: Respiratory Tract Infection Hx - pool attendant Hx Respiratory Tract Infection No 04/21/25 15:41 STOP Sleep Apnea STOP Sleep Apnea - pool attendant: STOP Sleep Apnea - pool attendant Hx Hypertension No 04/21/25 15:41 Hx Sleep [...] Tobacco Use History Tobacco Use History - pool attendant: Tobacco Use History - pool attendant Tobacco Use Smoking Status Never smoker 04/21/25 15:41 Hx Tobacco Use No 04/21/25 15:41 Years Smoking Packs Smoked per Day Smoking Cessation Date was within the last 15 years Hx Smoking Cessation Date Hx Smoking Cessation Counseling Hematologic Medial History Hematologic Hx - pool attendant: Hematologic Medical Hx - rn documentation Hx of Blood Transfusion No 04/21/25 15:41 Hx of Transfusion in last 3 No 04/21/25 15:41 Months Date of Last Transfusion (if within last 3 months) Ever experience any problems No 04/21/25 15:41 with transfusion(s)? Specify any problems Hx of Preganancy in last 3 No 04/21/25 15:41 Months Nurse Filling Out Transfusion DSCHRIBER 04/21/25 15:41 & Questions: Date: 04/21/25 04/21/25 15:41 Time: 15:42 04/21/25 15:41 Patient unable to answer at this time (ie. confused, unrespo /Reproduction History /Reproductive History - pool attendant: /Reproductive Hx- pool attendant Hx Now Gestational Age (in weeks): EDC: Hx Hx Para Hx Section SAB No 04/21/25 15:41 [facility] Medical History Lumbar stenosis Synovial cyst of lumbar spine [...] 1 cap PO DAILY suppleme 01/0410/23/24 History lansoprazole 30 mg capsule,delayed 30 mg PO DAILY #90 caps 11/11/24 Unknown Rx release pregabalin 200 mg capsule (Lyrica) 150 mg PO BID pain 11/11/24 Unknown History acetaminophen 325 mg tablet 1,000 mg (3.0769 x 325 mg) PO Q8H 03/28/25 Unknown Rx PRN PRN Pain 1-10 Or Fever #0 tabs dicyclomine 10 mg capsule 10 mg PO Q6 PRN abdominal cr amping 04/17/25 Unknown Rx #30 caps docusate sodium 50 mg capsule 50 mg PO QDAY 04/17/25 U nknown History oxycodone-acetaminophen 5 mg-325 1 tab PO TID PRN PRN pain 04/21/25 Unknown History mg tablet estradiol 14 mcg/24 hr weekly 1 patch transdermal QWEE K #4 ea 04/25/25 Unknown Rx transdermal patch Allergy/AdvReac Type Severity Reaction Status Date / Time No Known Allergies Allergy Verified 04/28/25 08:07 Family History Mother Heart disease Hypertension CVA [...] safe at home: Yes additional social history: [id number]-Qgbd-Afkvcyi Comfort Control Patient is [employer] at [employer] [facility] Review of Systems (Anesthesia) ROS Narrative System reviewed and no additional complaints, except as documented. 05/08/25734 <Electronically signed by Gigi Corral MD > Date _ Gigi Corral MD Cosigner Signature: Date CC: ~ Signed [facility] Work Phone: 1(311) 483-425508-04-2025 Consult note [facility] Medical Records Department [address] [place] [address] Anesthesia Postop Eval I 05/08/25913 MR#: [id number] Acct: [id number] Name: BRISSA STEELE Rep #:[id number] : 1970 54 From: Silvia Mckeon CRNA PCP: Dr. Tequila Renee MD Status:REG [facility] Race: C Location: [place] [address] Anesthesia: Postop Eval I Current Vital Signs Temperature: 97.5 F Pulse Rate: 75 Blood Pressure: 97/55 Respiratory Rate: 18 Pulse Ox: 93 Assessment Airway patent: Yes Spontaneous unlabored respirations: Yes nausea: No Vomiting: No Anesthesia Complication: No Fluid Hydration Crystalloid volume administer (ml): 500 Total IV fluid infused: 500 Progress Note Anesthesia document: Postop Eval 1 completed: Yes 05/08/25914 a NEWS CLERK> Date _ Silvia Mckeon NEWS CLERK Cosigner Signature: Date CC: ~ Signed [facility]08-04-2025 Procedure note [facility] Medical Records Department [address] [facility] [place] [address] Operative Report 05/08/25 0900 MR#: [id number] Acct: [id number] Name: BRISSA STEELE Rep #:[id number] : 1970 54 From: Diaz Kaiser MD PCP: Dr. Tequila Renee MD Status:[facility] Location: [place] [address] Operative Report (Standard) Operative Information Date of Procedure: 05/08/25 Pre-Operative Diagnosis: left oropharyngeal neoplasm Post-Operative Diagnosis: same Surgery/Procedure Performed: Excision left oropharyngeal neoplasm chemical process project engineer: No Type of Anesthesia: General RN Documented Start/Stop Times: Operation Date: 05/08/25 08:45 Case Time Into Pre-Op 05/08/25 07:33 Out of Pre-Op 05/08/25 08:36 Anesthesia Start 05/08/25 08:38 Into Room 05/08/25 08:38 Procedure Start 05/08/25 08:52 Procedure Start Time: 08:52 Procedure Stop Time: 09:01 Select all DRAINS/GRAFTS/IMPLANTS that apply: None Estimated Blood Loss: 1 cc Specimen collected: Yes Description of specimen(s) removed: left oropharyngeal neoplasm Description of surgery: The patient was taken to the operating room on 05/08/2025. She was placed in the supine position on the operating room table. She was given sufficient general endotracheal anesthesia. The table was turned 90 degrees in a clockwise fashion. The patient was draped sterilely. A Duc mouthgag inserted into the patient's mouth the patient was then suspended on a Ann stand. 1% lidocaine with epinephrine was injected into the mucosa surrounding the left oropharyngeallesion. The lesion was located at the takeoff of the anterior and posterior tonsillar pillar. The entire tonsil was examined and found to be normal. The lesion was excised with a 15 blade. Suction cautery was used for hemostasis. Ithenclosed the incision with 4-0 chromic. All irrigant was suctioned with the patient's oropharynx. Themouthgag was closed and removed. The patient was then awoken and brought to the recovery room in stable condition. Blood loss minimal, replacement none. Sponge, needle and instrument count were correct at the end of the procedure. Surgical Findings: neoplasm Complications Complications: No 05/08/25902 Cosigner Signature (if applicable): CC: Dr. Tequila Renee MD; Dr. Diaz Kaiser MD~ Signed [facility]08-04-2025 Discharge summary [facility] Medical Records Department [address] [place] [address] Discharge Summary 05/08/25 0832 MR#: [id number] Acct: [id number] Name: BRISSA STEELE Rep #:[id number] : 1970 54 From: Diaz Kaiser MD PCP: Dr. Tequila Renee MD Status:[facility] Location: [place] [address] Providers Primary Care Physician: Dr. Tequila Renee MD Reason For Visit: Excision oropharyngeal neoplasm Medications at Discharge Home Medications naproxen 250 mg tablet 250 - 500 mg (1 - 2 x 250 mg) PO Q8H PRN PRN MILD PAIN #30 tabs 11/06/20 multivitamin 1 cap PO DAILY suppleme 01/30/23 lansoprazole 30 mg capsule,delayed release 30 mg PO DAILY #90 caps 11/11/24 pregabalin 200 mg capsule (Lyrica) 150 mg PO BID pain 11/11/24 acetaminophen 325 mg tablet 1,000 mg (3.0769 x 325 mg) PO Q8H PRN PRN Pain 1-10 Or Fever #0 tabs 03/28/25 docusate sodium 50 mg capsule 50 mg PO QDAY 04/17/25 oxycodone-acetaminophen 5 mg-325 mg tablet 1 tab PO TID PRN PRN pain 04/21/25 estradiol 14 mcg/24 hr weekly transdermal patch 1 patch transdermal QWEEK #4 ea 04/25/25 dicyclomine 10 mg capsule 20 mg PO TID abdominal cramping 05/08/25 Weight / BMI Weight Weight: 96.4 kg Body Mass Index (BMI) 36.4 ABG / Lab / Microbiology Data 04/24/25 13:38 04/24/25 13:38 D/C Instructions Discharge Activity: Return to Normal Activity Additional Activity Instructions: Soft diet for 10 days DC O2, CPAP, BIPAP Needs Home O2 Discharge instructions: No Please Follow Up With: Diaz Kaiser MD When: 2-3 weeks Meaningful Use Info Meaningful Use Meaningful Use Diagnoses (Choose all that apply): None applicable Discharge Plan Admission Attending Provider: Diaz Kaiser Primary Care Provider: Tequila Renee Instructions Print Language: Honduran Discharge Orders/Prescriptions Prescriptions: No Action pregabalin [Lyrica] 200 mg capsule 150 mg PO BID lansoprazole 30 mg capsule,delayed release(DR/EC) 30 mg PO DAILY Qty: 90 3RF docusate sodium 50 mg capsule 50 mg PO QDAY naproxen 250 MG tablet 250 - 500 mg PO Q8H PRN PRN (Reason: MILD PAIN) Qty: 30 1RF multivitamin Capsule 1 cap PO DAILY Patient Comments: Patient states does not take consistently oxycodone-acetaminophen 5-325 mg tablet 1 tab PO TID PRN PRN (Reason: pain) dicyclomine 10 mg capsule 20 mg PO TID acetaminophen 325 mg Tablet 1,000 mg PO Q8H PRN PRN (Reason: Pain 1-10 Or Fever) Qty: 0 0RF estradiol 14 mcg/24 hr patch weekly 1 patch transdermal QWEEK Qty: 4 12RF Referrals / Follow Up: Tequila Renee MD [Primary Care Provider] - Disposition Disposition (needs filled in before D/C Order can be placed): Home, Self Care 05/08/25 0833 Cosign Signature (if applicable): CC: Dr. Tequila Renee MD; Dr. Diaz Kaiser MD~ Signed [facility]08-04-2025 [facility] Medical Records Department [address] [place] [address] Discharge Summary 05/08/25 0832 MR#: [id number] Acct: [id number] Name: BRISSA STEELE Rep #: [id number] : 1970 54 From: Diaz Kaiser MD PCP: Dr. Tequila Renee MD Status:[facility] Location: [place] [address] Providers Primary Care Physician: Dr. Tequila Renee MD Reason For Visit: Excision oropharyngeal neoplasm Medications at Discharge Home Medications naproxen 250 mg tablet 250 - 500 mg (1 - 2 x 250 mg) PO Q8H PRN PRN MILD PAIN #30 tabs 11/06/20 multivitamin 1 cap PO DAILY suppleme 01/30/23 lansoprazole 30 mg capsule,delayed release 30 mg PO DAILY #90 caps 11/11/24 pregabalin 200 mg capsule (Lyrica) 150 mg PO BID pain 11/11/24 acetaminophen 325 mg tablet 1,000 mg (3.0769 x 325 mg) PO Q8H PRN PRN Pain 1-10 Or Fever #0 tabs 03/28/25 docusate sodium 50 mg capsule 50 mg PO QDAY 04/17/25 oxycodone-acetaminophen 5 mg-325 mg tablet 1 tab PO TID PRN PRN pain 04/21/25 estradiol 14 mcg/24 hr weekly transdermal patch 1 patch transdermal QWEEK #4 ea 04/25/25 dicyclomine 10 mg capsule 20 mg PO TID abdominal cramping 05/08/25 Weight / BMI Weight Weight: 96.4 kg Body Mass Index (BMI) 36.4 ABG / Lab / Microbiology Data 04/24/25 13:38 04/24/25 13:38 D/C Instructions Discharge Activity: Return to Normal Activity Additional Activity Instructions: Soft diet for 10 days DC O2, CPAP, BIPAP Needs Home O2 Discharge instructions: No Please Follow Up With: Diaz Kaiser MD When: 2-3 weeks Meaningful Use Info Meaningful Use Meaningful Use Diagnoses (Choose all that apply): None applicable Discharge Plan Admission Attending Provider: Diaz Kaiser Primary Care Provider: Tequila Renee Instructions Print Language: Honduran Discharge Orders/Prescriptions Prescriptions: No Action pregabalin [Lyrica] 200 mg capsule 150 mg PO BID lansoprazole 30 mg capsule,delayed release(DR/EC) 30 mg PO DAILY Qty: 90 3RF docusate sodium 50 mg capsule 50 mg PO QDAY naproxen 250 MG tablet 250 - 500 mg PO Q8H PRN PRN (Reason: MILD PAIN) Qty: 30 1RF multivitamin Capsule 1 cap PO DAILY Patient Comments: Patient states does not take consistently oxycodone-acetaminophen 5-325 mg tablet 1 tab PO TID PRN PRN (Reason: pain) dicyclomine 10 mg capsule 20 mg PO TID acetaminophen 325 mg Tablet 1,000 mg PO Q8H PRN PRN (Reason: Pain 1-10 Or Fever) Qty: 0 0RF estradiol 14 mcg/24 hr patch weekly 1 patch transdermal QWEEK Qty: 4 12RF Referrals / Follow Up: Tequila Renee MD [Primary Care Provider] - Disposition Disposition (needs filled in before D/C Order can be placed): Home, Self Care 05/08/25 0833 Cosigner Signature (if applicable): CC: Dr. Tequila Renee MD; Dr. Diaz Kaiser [facility] Radiology Diagnostic study note [facility] Imaging Services [address] [place], [place] [address] L/S Spine Min 4 Views MR#: [id number] Acct: [id number] Name: BRISSA STEELE Rep #: [id number] : 1970 F 54 From: Rubina Young MD PCP: Dr. Tequila Renee MD Status: REG CLI Study:L/S Spine Min 4 Views Date of Exam: 04/24/25 Exam# [id number] Ordering Dr: Chintan Bueno MD PROCEDURE: L/S SPINE MIN 4 VIEWS 04/24/2025 REASON FOR EXAM: BACK PAIN TECHNIQUE: L/S SPINE MIN 4 VIEWS COMPARISON: 01/09/2025 FINDINGS: Mild scoliosis. Facet arthritis L3 through S1. Relatively preserved disc spaces. No abnormal motionwith flexion/extension. No acute bone or soft tissue pathology. RAD/L/S Spine Min 4 Views IMPRESSION: Lumbar spine scoliosis and degeneration. Reading Location: [place] [address] CC: Dr. Ottonile Bueno MD; Dr. Tequila Renee MD ~ Capacity Management Specialist: Signed [facility]06-26-2025 History of Present illness Narrative* Rosalie Rey LPN - 03/30/2025 10:40 AM EDT Hospital follow up * Tequila Renee MD - 03/30/2025 10:40 AM EDT Patient presents for periodic surveillance of chronic medical problems. Calin Steele is a 54 y.o. female who presents for Follow-up. SALVADOR Tyson is here for followup hospital stay at [facility] for lower GI bleed. There was originally some concern for sepsis but ultimately felt to be ischemic colitis. On flagyl and cipro course currently , fairly nauseous and doesn't feel like eating much. No further bleeding. Will see GI in [place] for colonoscopy in estimate six weeks. Hemoglobin [...] to 44.9 in adult [facility] Work Phone: 1(583) 862-151306-24-2025 Discharge summary Author Bry Dominguez [facility] Note Date/Time March 28, 2025 2:18 pm [facility] Medical Records Department [address] [place] [address] Discharge Summary 03/28/25 1404 MR#: [id number] Acct: [id number] Name: BRISSA STEELE Rep #:[id number] : 1970 54 From: Bry Dominguez DO PCP: Dr. Tequila Renee MD Status:ADM IN Location: [place] [address] Providers Date of Admission: 03/25/25 Primary Care Physician: Dr. Tequila Renee MD Consultations 03/25/25 00:58 Consult: Gastroenterology Routine Consulting Provider: [facility] Reason for Consult: Colitis, LGIB with BRBPR, N/V and suspected Sepsis. EMERGENT Consult: No Notified: Yes Date Notified: 03/25/25 Time Notified: 00:32 Method of Notification: ED Physician Initiated Consult: Crepe Box Tender / Pulmonary Medicine Routine Consulting Provider: Intensivists/Pulmonary Med Reason for Consult: Colitis, LGIB with BRBPR, N/V and suspected Sepsis. EMERGENT Consult: No Notified: Yes Date Notified: 03/25/25 Time Notified: [...] (Auto) 70.8 H, Lymph % (Auto) 18.0 L,Arthur % (Auto) 6.8, Eos % (Auto) 3.5, [...] 48 hours. D/C Instructions Discharge Diet: - ([place] diet. Advance as tolerated.) Return to work [...] Provider: Tequila Renee Consulting Providers: Jason Watters; Chda Rosenthal; Lawrence Thomas; Marcus Willard; Prakash Handley; [...] Self Care Charges/Coding Visit Charges Inpatient E&M: 05797 Disch Hosp >30min 03/28/25 1418 <Electronically signed by Bry Dominguez DO> Cosigner Signature (if applicable): CC: Dr. Bry Dominguez DO; Dr. Tequila Renee MD~ Signed [facility] Work Phone: 1(342) 263-316006-24-2025 Progress note Author Bry Dominguez [facility] Note Date/Time March 28, 2025 2:04 pm [facility] Medical Records Department [address] [place] [address] Progress Note - Hospitalist 03/28/25 1400 MR#: [id number] Acct: [id number] Name: BRISSA STEELE Rep #:[id number] : 1970 54 From: Bry Dominguez DO PCP: Dr. Tequila Renee MD Status:ADM IN Location: [place] [address] Reason for Visit Reason for Visit: Diagnoses [...] 03/27/25 03/28/25 23:59 23:59 23:59 Intake Total 20997.75 / 2086.75 725 / 725 Balance [...] (Auto) 70.8 H, Lymph % (Auto) 18.0 L,Arthur % (Auto) 6.8, Eos % (Auto) 3.5, [...] Cosigner Signature (if applicable): CC: ~ Signed [facility] Work Phone: 1(124) 898-789106-24-2025 Consult note [facility] Medical Records Department [address] [place] [address] Counseling Note - Pharmacy 03/28/25 5738 MR#: [id number] Acct: [id number] Name: BRISSA STEELE Rep #:[id number] : 1970 54 From: Gwen Mary PCP: Dr. Tequila Renee MD Status:ADM IN Y Location: [place] [id number] Counseling Pharmacy Service has performed discharge medication [...] mg PO Q8H #21 tabs 03/28/25 03/28/25 9769 Date _ Gwen Enciso Signature (if applicable): Date CC: ~ Signed [facility]06-24-2025 Discharge summary [facility] Medical Records Department [address] [place] [address] Discharge Summary 03/28/25 1404 MR#: [id number] Acct: [id number] Name: BRISSA STEELE Rep #:[id number] : 1970 54 From: Bry Dominguez DO PCP: Dr. Tequila Renee MD Status:ADM IN Location: [place] [address] Providers Date of Admission: 03/25/25 Primary Care Physician: Dr. Tequila Renee MD Consultations 03/25/25 00:58 Consult: Gastroenterology Routine Consulting Provider: [facility] Reason for Consult: Colitis, LGIB with BRBPR, N/V and suspected Sepsis. EMERGENT Consult: No MD Notified: Yes Date Notified: 03/25/25 Time Notified: 00:32 Method of Notification: ED Physician Initiated Consult: Crepe Box Tender / Pulmonary Medicine Routine Consulting Provider: Intensivists/Pulmonary [...] Noninfective gastroenteritis and colitis, unspecified [facility]2 ischemic colitis continue abx w cipro [...] (Auto) 70.8 H, Lymph % (Auto) 18.0 L,Arthur % (Auto) 6.8, Eos % (Auto) 3.5, [...] 48 hours. D/C Instructions Discharge Diet: - ([place] diet. Advance as tolerated.) Return to work [...] recurrent bloody stool, contact physician or return tot emergency room. Discharge Orders/Prescriptions Prescriptions: New acetaminophen [...] Self Care Charges/Coding Visit Charges Inpatient E&M: 97020 Disch Hosp >30min 03/28/25 1418 Cosigner Signature (if applicable): CC: Dr. Bry Dominguez DO; Dr. Tequila Renee MD~ Signed [facility]06-24-2025 [facility] Medical Records Department [address] [place] [address] Discharge Summary 03/28/25 1404 MR#: [id number] Acct: [id number] Name: BRISSA STEELE Rep #: [id number] : 1970 54 From: Bry Dominguez DO PCP: Dr. Tequila Renee MD Status:ADM IN Location: [place] [address] Providers Date of Admission: 03/25/25 Primary Care Physician: Dr. Tequila Renee MD Consultations 03/25/25 00:58 Consult: Gastroenterology Routine Consulting Provider: [facility] Reason for Consult: Colitis, LGIB with BRBPR, N/V and suspected Sepsis. EMERGENT Consult: No Notified: Yes Date Notified: 03/25/25 Time Notified: 00:32 Method of Notification: ED Physician Initiated Consult: Crepe Box Tender / Pulmonary Medicine Routine Consulting Provider: Intensivists/Pulmonary Med Reason for Consult: Colitis, LGIB with BRBPR, N/V and suspected Sepsis. EMERGENT Consult: No Notified: Yes Date Notified: 03/25/25 Time Notified: [...] 70.8 H, Lymph % (Auto) 18.0 L, Arthur % (Auto) 6.8, Eos % (Auto) 3.5, [...] 48 hours. D/C Instructions Discharge Diet: - ([place] diet. Advance as tolerated.) Return to work on: 04/03/25 DC O2, CPAP, BIPAP Needs Home O2 Discharge instructions: No Meaningful Use Info Meaningful Use (more content not included)...[facility] 03-28-2025 Progress note [facility] Medical Records Department [address] [place] [address] Progress Note - Hospitalist 03/28/25 1400 MR#: [id number] Acct: [id number] Name: BRISSA STEELE Rep #:[id number] : 1970 54 From: Bry Dominguez DO PCP: Dr. Tequila Renee MD Status:ADM IN Location: [place] [address] Reason for Visit Reason for Visit: Diagnoses [...] 03/27/25 03/28/25 23:59 23:59 23:59 Intake Total 20997.75 / 2086.75 725 / 725 Balance [...] (Auto) 70.8 H, Lymph % (Auto) 18.0 L,Arthur % (Auto) 6.8, Eos % (Auto) 3.5, [...] Cosigner Signature (if applicable): CC: ~ Signed [facility]06-23-2025 Progress note Author Bry Dominguez [facility] Note Date/Time March 27, 2025 4:20 pm [facility] Medical Records Department [address] [place] [address] Progress Note - Hospitalist 03/27/25 0751 MR#: [id number] Acct: [id number] Name: BRISSA STEELE Rep #:[id number] : 1970 54 From: Bry Dominguez DO PCP: Dr. Tequila Renee MD Status:ADM IN Location: [place] [address] Reason for Visit Reason for Visit: Diagnoses [...] Normal bowel sounds. Neuro Coordination / Balance: ihaenw-mj-jfyz test normal Assessment & Plan Assessment/Plan (1) [...] be discharged. Charges/Coding Visit Charges Inpatient E&M: 09966 Subs Hosp L2 03/27/25 1308 <Electronically signed by Bry Dominguez DO> Cosigner Signature (if applicable): CC: ~ Signed ADDENDUM by Dr. Bry Dominguez DO on 03/27/25 at 1620 Addendum [place] worse after the transitional diet. Will monitor the patient overnight. 03/27/25 1620<Electronically signed by Bry Dominguez DO> Cosigner Signature (if applicable): cc: ~* Signed [facility] Work Phone: 1(609) 574-674106-23-2025 Progress note [facility] Medical Records Department [address] [place] [address] Progress Note - Hospitalist 03/27/25 0751 MR#: [id number] Acct: [id number] Name: BRISSA STEELE Rep #:[id number] : 1970 54 From: Bry Dominguez DO PCP: Dr. Tequila Renee MD Status:ADM IN Location: [place] [address] Reason for Visit Reason for Visit: Diagnoses [...] Normal bowel sounds. Neuro Coordination / Balance: frxkyq-bx-bzth test normal Assessment & Plan Assessment/Plan (1) [...] be discharged. Charges/Coding Visit Charges Inpatient E&M: 65729 Subs Hosp L2 03/27/25 1308 Cosigner Signature (if applicable): CC: ~ Signed ADDENDUM by Dr. Bry Dominguez, DO on 03/27/25 at 1620 Addendum [place] worse after the transitional diet. Will monitor the patient overnight. 03/27/25 1620 Cosigner Signature (if applicable): cc: ~* Signed [facility]06-22-2025 Progress note Author Bry Dominguez [facility] Note Date/Time March 26, 2025 2:13 pm [facility] Medical Records Department [address] [place] [address] Progress Note - Hospitalist 03/26/25 0916 MR#: [id number] Acct: [id number] Name: BRISSA STEELE Rep #:[id number] : 1970 54 From: Bry Dominguez DO PCP: Dr. Tequila Renee MD Status:ADM IN Location: [place] [address] Reason for Visit Reason for Visit: Diagnoses [...] (Auto) 85.3 H, Lymph % (Auto) 8.6L, Arthur % (Auto) 5.8, Eos % (Auto) 0.0, [...] 75.1 H, Lymph % (Auto) 17.2 L, Arthur % (Auto) 6.0, Eos % (Auto) 0.9, [...] prophylaxis: SCDs. Charges/Coding Visit Charges Inpatient E&M: 88398 Subs Hosp L2 03/26/25 1413 <Electronically signed by Bry Dominguez DO> Cosigner Signature (if applicable): CC: ~ Signed [facility] Work Phone: 1(209) 741-860206-22-2025 Progress note [facility] Medical Records Department [address] [place] [address] Progress Note - Hospitalist 03/26/25 0916 MR#: [id number] Acct: [id number] Name: BRISSA STEELE Rep #:[id number] : 1970 54 From: Bry Dominguez DO PCP: Dr. Tequila Renee MD Status:ADM IN Location: [place] [address] Reason for Visit Reason for Visit: Diagnoses [...] (Auto) 85.3 H, Lymph % (Auto) 8.6L, Arthur % (Auto) 5.8, Eos % (Auto) 0.0, [...] 75.1 H, Lymph % (Auto) 17.2 L, Arthur % (Auto) 6.0, Eos % (Auto) 0.9, [...] prophylaxis: SCDs. Charges/Coding Visit Charges Inpatient E&M: 25376 Subs Hosp L2 03/26/25 1413 Cosigner Signature (if applicable): CC: ~ Signed [facility]06-21-2025 Consult note Author Chele Manriquez [facility] Note Date/Time March 25, 2025 2:34 pm [facility] Medical Records Department [address] [place] [address] Consultation - GI 03/25/25 1422 MR#: [id number] Acct: [id number] Name: BRISSA STEELE Rep #:[id number] : 1970 54 From: Chele Manriquez DO PCP: Dr. Tequila Renee MD Status:ADM IN Location: [place] [address] ADDENDUM by Chele Manriquez DO on 03/25/25 at 1434 Multi Select Codes Visit Charges Visit Charges: 56867 Init Hosp L3 03/25/25 2056<Electronically signed by Chele Manriquez DO> Cosigner Signature [...] she does not try to move much. [facility] Medical History Chronic pain Pain Nausea [...] safe at home: Yes additional social history: Uprzvqy-Feet-Ndkqehw Comfort Control Patient is [employer] at [facility] ROS ROS Narrative Review of Systems: [...] swelling or urticaria. Hematology: Patient admits to [facility] with BRBPR. Endocrinology: Patient denies polyuria, polydipsia, [...] 89.3 H, Lymph % (Auto) 6.7 L, Arthur % (Auto) 3.4, Eos % (Auto) 0.0, [...] Clarity Clear, Urine pH 8.0, Ur Specific [place] 1.010, Urine Protein 15 H, Urine Glucose [...] (Auto) 85.3 H, Lymph % (Auto) 8.6L, Arthur % (Auto) 5.8, Eos % (Auto) 0.0, [...] obstruction. Lung bases are clear Reading Location: [facility] [address] Assessment & Plan Assessment/Plan (1) ABLA (acute [...] Start Colace 100 mg p.o. daily 03/25/25 4754 <Electronically signed by Chele Manriquez DO> Cosigner Signature (if applicable): CC: Dr. Bry Toribio DO; Dr. Tequila Renee MD~ Signed [facility] Work Phone: 1(237) 838-295906-21-2025 Consult note [facility] Medical Records Department [address] [place] [address] Consultation - GI 03/25/25 1422 MR#: [id number] Acct: [id number] Name: BRISSA STEELE Rep #:[id number] : 1970 54 From: Chele Manriquez DO PCP: Dr. Tequila Renee MD Status:ADM IN Location: [place] [address] ADDENDUM by Chele Manriquez DO on 03/25/25 at 1434 Multi Select Codes Visit Charges Visit Charges: 18914 Init Hosp L3 03/25/25 1434 Cosigner Signature [...] she does not try to move much. [facility] Medical History Chronic pain Pain Nausea [...] safe at home: Yes additional social history: Vwhmhev-Aipe-Vaqzrkc Comfort Control Patient is [employer] at [facility] ROS ROS Narrative Review of Systems: Constitutional: Patient admits to fever. Eyes: Patient denies changes in vision or discharge from eyes. ENT: Patient denies runny nose, sore throat or ear pain. Resp: Patient denies SOB or cough. CV: Patient denies chest pain, palpitations, heart racing or LE edema. GI: Patient admits to [facility] with BRBPR and nausea with vomiting productive [...] swelling or urticaria. Hematology: Patient admits to [facility] with BRBPR. Endocrinology: Patient denies polyuria, polydipsia, [...] 89.3 H, Lymph % (Auto) 6.7 L, Arthur % (Auto) 3.4, Eos % (Auto) 0.0, [...] Clarity Clear, Urine pH 8.0, Ur Specific [place] 1.010, Urine Protein 15 H, Urine Glucose [...] (Auto) 85.3 H, Lymph % (Auto) 8.6L, Arthur % (Auto) 5.8, Eos % (Auto) 0.0, [...] obstruction. Lung bases are clear Reading Location: [facility] [address] Assessment & Plan Assessment/Plan (1) ABLA (acute [...] Start Colace 100 mg p.o. daily 03/25/25 3464 Cosigner Signature (if applicable): CC: Dr. Bry Toribio DO; Dr. Tequila Renee MD~ Signed [facility]06-21-2025 Progress note Author Bry Dominguez [facility] Note Date/Time March 25, 2025 11:1 0[facility] Medical Records Department [address] [place] [address] Progress Note - Hospitalist 03/25/25 0820 MR#: [id number] Acct: [id number] Name: BRISSA STEELE Rep #:[id number] : 1970 54 From: Bry Dominguez DO PCP: Dr. Tequila Renee MD Status:ADM IN Location: [place] [address] Reason for Visit Reason for Visit: Diagnoses [...] 89.3 H, Lymph % (Auto) 6.7 L, Arthur % (Auto) 3.4, Eos % (Auto) 0.0, [...] Clarity Clear, Urine pH 8.0, Ur Specific [place] 1.010, Urine Protein 15 H, Urine Glucose [...] obstruction. Lung bases are clear Reading Location: [facility] Physical Exam Const alert and no apparent [...] prophylaxis: SCDs. Charges/Coding Visit Charges Inpatient E&M: 13284 Subs Hosp L2 03/25/25 1110 <Electronically signed by Bry Dominguez DO> Cosigner Signature (if applicable): CC: ~ Signed [facility] Work Phone: 1(590) 277-299706-21-2025 Progress note [facility] Medical Records Department [address] [place] [address] Progress Note - Hospitalist 03/25/25819 MR#: [id number] Acct: [id number] Name: BRISSA STEELE Rep #:[id number] : 1970 54 From: Bry Dominguez DO PCP: Dr. Tequila Renee MD Status:ADM IN Location: [place] [id number]- Reason for Visit Reason for Visit: Diagnoses [...] 89.3 H, Lymph % (Auto) 6.7 L, Arthur % (Auto) 3.4, Eos % (Auto) 0.0, [...] Clarity Clear, Urine pH 8.0, Ur Specific [place] 1.010, Urine Protein 15 H, Urine Glucose [...] obstruction. Lung bases are clear Reading Location: [facility] Physical Exam Const alert and no apparent [...] prophylaxis: SCDs. Charges/Coding Visit Charges Inpatient E&M: 70604 Subs Hosp L2 03/25/25 1110 Cosigner Signature (if applicable): CC: ~ Signed [facility]06-21-2025 History and physical note Author Jason Narayanan [facility] Note Date/Time March 25, 2025 6:11 am [facility] Medical Records Department [address] [place] [address] H&P Exam - Hospitalist 03/24/25 1857 MR#: [id number] Acct: [id number] Name: BRISSA STEELE Rep #:[id number] : 1970 54 From: Jason Correa DO PCP: Dr. Tequila Renee MD Status:ADM IN Location: U [id number]- 1 HPI - General General Date of Admission: [...] legs on prn naproxen who presents to [facility] ER complaining of Lower GI Bleed, [...] is expected to extend beyond 2 midnights. [facility] Medical History (Updated 03/25/25 @ 01:18 [...] safe at home: Yes additional social history: Agvluwb-Yngb-Zueghqg Comfort Control Patient is [employer] at [facility] ROS ROS Narrative Review of Systems: Constitutional: Patient admits to fever. Eyes: Patient denies changes in vision or discharge from eyes. ENT: Patient denies runny nose, sore throat or ear pain. Resp: Patient denies SOB or cough. CV: Patient denies chest pain, palpitations, heart racing or LE edema. GI: Patient admits to [facility] with BRBPR and nausea with vomiting productive [...] swelling or urticaria. Hematology: Patient admits to [facility] with BRBPR. Endocrinology: Patient denies polyuria, polydipsia, [...] 89.3 H, Lymph % (Auto) 6.7 L, Arthur % (Auto) 3.4, Eos % (Auto) 0.0, [...] Clarity Clear, Urine pH 8.0, Ur Specific [place] 1.010, Urine Protein 15 H, Urine Glucose [...] obstruction. Lung bases are clear Reading Location: [facility] Assessment & Plan Assessment/Plan (1) Colitis: (2) [...] IV daily for GI prophylaxis. Give acetaminophen AR prn for abdy-vg-xwlvcsnt (level 1-5/10) pain or fever. Give IV morphine prn for severe (level 6-10/10) pain. 2. LGIB with BRBPR complicating #1 - Keep NPO for now. Type & Screen blood andtransfuse for hemoglobin < 7g dL. Structural Technician on-call contacted by ER physician with formal [...] responsive hypotension Charges/Coding Visit Charges Inpatient E&M: 31773 Init Hosp L3 03/25/25 0611 <Electronically signed by Jason Watters DO> Cosigner Signature (if applicable): CC: Dr. Jason Watters DO; Dr. Tequila Renee MD~ Signed [facility] Work Phone: 1(825) 326-650706-21-2025 History and physical note [facility] Medical Records Department [address] [place] [address] H&P Exam - Hospitalist 03/24/25 0137 MR#: [id number] Acct: [id number] Name: BRISSA STEELE Rep #:[id number] : 1970 54 From: Jason Correa DO PCP: Dr. Tequila Renee MD Status:ADM IN Location: [facility] [id number]- 1 HPI - General General Date of Admission: [...] legs on prn naproxen who presents to [facility] ER complaining of Lower GI Bleed, [...] is expected to extend beyond 2 midnights. [facility] Medical History (Updated 03/25/25 @ 01:18 [...] tabs multivitamin 1 cap PO DAILY suppleme 04/05/2710/23/24 History estradiol 14 mcg/24 hr weekly 1 [...] safe at home: Yes additional social history: Giayxgc-Cpca-Dxcbcvw Comfort Control Patient is [employer] at [facility] ROS ROS Narrative Review of Systems: [...] 89.3 H, Lymph % (Auto) 6.7 L, Arthur % (Auto) 3.4, Eos % (Auto) 0.0, [...] Clarity Clear, Urine pH 8.0, Ur Specific [place] 1.010, Urine Protein 15 H, Urine Glucose [...] obstruction. Lung bases are clear Reading [facility] Assessment & Plan Assessment/Plan (1) Colitis: (2) [...] IV daily for GI prophylaxis. Give acetaminophen AR prn for jusa-to-buorakug (level 1-5/10) pain or fever. Give IV morphine prn for severe (level 6-10/10) pain. 2. LGIB with BRBPR complicating #1 - Keep NPO for now. Type & Screen blood andtransfuse for hemoglobin < 7g dL. Structural Technician on-call contacted by ER physician with formal [...] responsive hypotension Charges/Coding Visit Charges Inpatient E&M: 11362 Init Hosp L3 03/25/25 0611 Cosigner Signature (if applicable): CC: Dr. Jason Watters DO; Dr. Tequila Renee MD~ Signed [facility]06-21-2025 Discharge summary Author Bry Toribio [facility] Note Date/Time March 24, 2025 11:3 3pm [facility] Medical Records Department [address] [place] [address] Emergency Department Summary 03/24/25 MR#: [id number] Acct: [id number] Name: BRISSA STEELE Rep #:[id number] : [...] any chest pain or shortness of breath. [facility] Medical History Pain Nausea Epigastric pain Wears [...] safe at home: Yes additional social history: Wcdlqpy-Nmdt-Ymtewko Comfort Control Patient is [employer] at [facility] ROS ROS ED Constitutional Constitutional ED: [...] 89.3 H Lymph % (Auto) 6.7 L Arthur % (Auto) 3.4 Eos % (Auto) 0.0 [...] Clarity Clear Urine pH 8.0 Ur Specific [place] 1.010 Urine Protein 15 H Urine Glucose [...] obstruction. Lung bases are clear Reading [facility] scan of the abdomen and pelvis was obtained. There is colitis of the left colon. There is no evidence of obstruction. There is no perforation noted. This was interpreted by the radiologist and was also independently reviewed by myself. Management Discussion w/another healthcare provider: Hospitalist (Dr. Malagon) and Infusion Rn (Dr. Manriquez) Additional Tests and Interventions Additional [...] difficile. This was ordered. Patient has a [place] scoreof 12. Dr. Manriquez is agreeable with admission. Patient is agreeable with admission. Case was discussed with the hospitalist. He will admit the patient to his service. Patient and family understood and were agreeable with the plan. All questions were answered. Discharge Plan Dx/Rx/DC Orders Clinical Impression: Colitis, Lower gastrointestinal bleeding, Fever Disposition Disposition: Acute Care Hospital [facility] What to do if you have Problems For any increased pain, shortness of breath, bleeding, nausea or vomiting, chestpain, or any unexpected problems, contact your Primary Care Provider. Call [facility] ([phone]) or report to the closest Emergency Room. Call 911 if necessary. 03/24/25 9591 <Electronically signed by Bry Toribio DO> Cosigner Signature (if applicable): CC: Dr. Tequila Renee MD ~ Signed [facility] Work Phone: 1(483) 787-929106-20-2025 Discharge summary [facility] Medical Records Department [address] [place] [address] Emergency Department Summary 03/24/25 MR#: [id number] Acct: [id number] Name: BRISSA STEELE Rep #:[id number] : [...] any chest pain or shortness of breath. [facility] Medical History Pain Nausea Epigastric pain Wears [...] safe at home: Yes additional social history: Zhvxzib-Ghue-Rmxhsjf Comfort Control Patient is [employer] at [facility] ROS ROS ED Constitutional Constitutional ED: [...] 89.3 H Lymph % (Auto) 6.7 L Arthur % (Auto) 3.4 Eos % (Auto) 0.0 [...] Clarity Clear Urine pH 8.0 Ur Specific [place] 1.010 Urine Protein 15 H Urine Glucose [...] obstruction. Lung bases are clear Reading [facility] CT scan of the abdomen and pelvis was obtained. There is colitis of the left colon. There is no evidence of obstruction. There is no perforation noted. This was interpreted by the radiologist and wasalso independently reviewed by myself. Management Discussion w/another healthcare provider: Hospitalist (Dr. Malagon) and Infusion Rn (Dr. Manriquez) Additional Tests and Interventions Additional [...] difficile. This was ordered. Patient has a [place] scoreof 12. Dr. Manriquez is agreeable with admission. Patient is agreeable with admission. Case was discussed with the hospitalist. He will admitthe patient to his service. Patient and family understood and were agreeable with the plan. All questions were answered. Discharge Plan Dx/Rx/DC Orders Clinical Impression: Colitis, Lower gastrointestinal bleeding, Fever Disposition Disposition: Acute Care [facility] What to do if you have Problems For any increased pain, shortness of breath, bleeding, nausea or vomiting, chestpain, or any unexpected problems, contact your Primary Care Provider. Call [facility] ([phone]) or report tothe closest Emergency Room. Call 911 if necessary. 03/24/25 8663 Cosigner Signature (if applicable): CC: Dr. Tequila Renee MD ~ Signed [facility]06-20-2025 Radiology Diagnostic study note [facility] Imaging Services [address] [place] [address] Abdomen/Pelvis W IV Cont ONLY MR#: [id number] Acct: [id number] Name: BRISSA STEELE Rep #: [id number] : 1970 F 54 From: Luther Morales MD PCP: Dr. Tequila Renee MD Status: REG ER Study:Abdomen/Pelvis W IV Cont ONLY Date of E xam: 03/24/25 Exam# [id number] Ordering Dr: Bry Toribio DO PROCEDURE: ABDOMEN/PELVIS [...] obstruction. Lung bases are clear Reading Location: [facility] CC: Dr. Bry Toribio DO; Dr. Tequila Renee MD ~ Capacity Management Specialist: Signed [facility]06-20-2025 Discharge summary Author Bry Toribio [facility] Note Date/Time March 24, 2025 11:3 3pm [facility] Medical Records Department [address] [place] [address] Emergency Department Summary 03/24/25 MR#: [id number] Acct: [id number] Name: BRISSA STEELE Rep #:[id number] : [...] any chest pain or shortness of breath. [facility] Medical History Pain Nausea Epigastric pain Wears [...] safe at home: Yes additional social history: Bkqcdvk-Kcpl-Orcvtry Comfort Control Patient is [employer] at [facility] ROS ED Constitutional Constitutional ED: Reports chills [...] 89.3 H Lymph % (Auto) 6.7 L Arthur % (Auto) 3.4 Eos % (Auto) 0.0 [...] Clarity Clear Urine pH 8.0 Ur Specific [place] 1.010 Urine Protein 15 H Urine Glucose [...] obstruction. Lung bases are clear Reading Location[facility] CT scan of the abdomen and pelvis was obtained. There is colitis of the left colon. There is no evidence of obstruction. There is no perforation noted. This was interpreted by the radiologist and was also independently reviewed by myself. Management Discussion w/another healthcare provider: Hospitalist (Dr. Malagon) and Infusion Rn (Dr. Manriquez) Additional Tests and Interventions Additional [...] difficile. This was ordered. Patient has a [place] scoreof 12. Dr. Manriquez is agreeable with admission. Patient is agreeable with admission. Case was discussed with the hospitalist. He will admit the patient to his service. Patient and family understood and were agreeable with the plan. All questions were answered. Discharge Plan Dx/Rx/DC Orders Clinical Impression: Colitis, Lower gastrointestinal bleeding, Fever Disposition Disposition: Acute Care [facility] What to do if you have Problems For any increased pain, shortness of breath, bleeding, nausea or vomiting, chestpain, or any unexpected problems, contact your Primary Care Provider. Call [facility] ([phone]) or report to the closest Emergency Room. Call 911 if necessary. 03/24/25 8260 <Electronically signed by Bry Toribio DO> Cosigner Signature (if applicable): CC: Dr. Tequila Renee MD ~ Signed [facility] Work Phone: 1(610) 178-895505-07-2025 Discharge summary Author Jerry Montes [facility] Note Date/Time February 08, 2025 8:41am [facility] Physical Therapy [facility] [facility] [place] [address] / REHABILITATION SERVICES DISCHARGE SUMMARY MR#: [id number] Acct: [id number] Name: BRISSA STEELE Rep #: [id number] : 1970 54 From: Cert. LEN Mendes, [facility] Referring Dr.: Dr. Philip Gerber MD Status: REG RCR Insurance: [employer]/[facility] SELF PAY INSURANCE Discharge Summary D/C [...] please feel free to call me at [phone]. Thank you for the referral of thispatient. Sincerely, Jerry Montes PT, Cert T, OCS Balance/Gait/Functional tests Balance/Special Test Scores Oswestry Low Back Score: 28 <Electronically signed by Giovanni Echols PT. LEN, OCS> 02/08/25 0841 CC: Dr. Philip Gerber MD; Dr. Tequila Renee MD ~ JLA Signed [facility] Work Phone: 1(609) [phone] Discharge summary [facility] Physical Therapy [facility] [address] [place] [address]. [address] [place] [address] / REHABILITATION SERVICES DISCHARGE SUMMARY MR#: [id number] Acct: [id number] Name: BRISSA STEELE Rep #: [id number] : 1970 54 From: Cert. LEN Mendes, OCS Referring Dr.: Dr. Philip Gerber MD Status: REG RCR Insurance: [facility] [employer]/[facility] SELF PAY INSURANCE Discharge Summary D/C [...] please feel free to call me at [phone]. Thank you for the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
[2025-06-16] MEDS: Lactated Ringers 1,000 ML 15 ML IV (06:04)
--- NOTE | 2025-06-16 06:30 | COLBX_PTH ---
PATIENT: BRISSA STEELE LOC: EN U#:[id number] AGE/SX: 54/F ROOM: RE06/16/[address]: Dr. Chele Manriquez DO : 1970 BED: DIS: 06/16/2025 SPEC #: [id number] RECD: 06/16/25 08:46 STATUS: YUAN REShekhar #: [id number] AMINA: 06/16/25 06:[address]: Chele Manriquez DEPT: SURGICAL PATHOLOGY RECD BY: Dexter Partida ENTERED: 06/16/25 10:47 SP TYPE: COLON BX OT DR: Dr. Tequila Lujan MD Tissues: A - Esophagus, NOS B - COLON BIOPSY Procedures: Surgery Specimen Level IV HEADER OPERATION: Colonoscopy, EGD, biopsy PRE-OP DIAGNOSIS: Bhatti's esophagus, ischemic colitis TISSUE SUBMITTED: A- Distal esophagus biopsy, B- Left side colon biopsy MICROSCOPIC DIAGNOSIS A. Distal esophagus, biopsy: - Squamous mucosa with reactive changes. - Columnar mucosa negative for goblet cell metaplasia. B. Colon, left, biopsy: - Focal lamina propria edema. - Negative for acute inflammation or necrosis. MICROSCOPIC DESCRIPTION Slides are reviewed. GROSS DESCRIPTION A. Received in fixative is one container labeled with the patient's name and designated Distal esophagus biopsy. The specimen consists of multiple irregular fragments of light johnston soft tissue that in aggregate measure 1.2 x 0.3 x 0.1 cm. The specimen is totally submitted in one cassette. B. Received in fixative is one container labeled with the patient's name and designated Left side colon biopsy. The specimen consists of four irregular fragments of light johnston soft tissue that measure 0.4 to 0.8 cm. The specimen is totally submitted in one cassette. SD 06/16/2025 CPT:99669l5
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
--- NOTE | 2025-06-16 07:23 | OP.EGD_ITS ---
Patient Name: Marbella Martínez Procedure Date: 06/16/2025 6:38 AM Date of : 1970 Age: 54 Procedure: Upper GI endoscopy Indications: Follow-up of Bhatti's esophagus Providers: Chele Manriquez DO Referring MD: Chele Manriquez DO Medicines: Monitored Anesthesia Care Patient Profile: This is a 54 year old female. Refer to note in patient chart for documentation of history and physical. Patient has symptoms of chronic heartburn. Complications: No immediate complications. Procedure: Pre-Anesthesia Assessment: - Prior to the procedure, a History and Physical was performed, and patient medications and allergies were reviewed. The patient is competent. The risks and benefits of the procedure and the sedation options and risks were discussed with the patient. All questions were answered and informed consent was obtained. Patient identification and proposed procedure were verified by the physician in the pre-procedure area. Mental Status Examination: alert and oriented. Airway Examination: normal oropharyngeal airway and neck mobility. Respiratory Examination: clear to auscultation. CV Examination: normal. Prophylactic Antibiotics: The patient does not require prophylactic antibiotics. Prior Anticoagulants: The patient has taken no anticoagulant or antiplatelet agents except for NSAID medication. ASA Grade Assessment: II - A patient with mild systemic disease. After reviewing the risks and benefits, the patient was deemed in satisfactory condition to undergo the procedure. The anesthesia plan was to use monitored anesthesia care (MAC). Immediately prior to administration of medications, the patient was re-assessed for adequacy to receive sedatives. The heart rate, respiratory rate, oxygen saturations, blood pressure, adequacy of pulmonary ventilation, and response to care were monitored throughout the procedure. The physical status of the patient was re-assessed after the procedure. After obtaining informed consent, the endoscope was passed under direct vision. Throughout the procedure, the patient's blood pressure, pulse, and oxygen saturations were monitored continuously. The Colonoscope was introduced through the mouth, and advanced to the second part of duodenum. The upper GI endoscopy was accomplished without difficulty. The patient tolerated the procedure well. Scope In: 6:57:55 AM Scope Out: 7:02:49 AM Total Procedure Duration Time 0 hours 4 minutes 54 seconds Findings: The Z-line was irregular and was found 38 cm from the incisors. Biopsies were taken with a cold forceps for histology. Verification of patient identification for the specimen was done. Estimated blood loss was minimal. The examined duodenum was normal. Patchy mild inflammation characterized by erosions and erythema was found in the gastric antrum. Biopsies were taken with a cold forceps for histology. Biopsies were taken with a cold forceps for Helicobacter pylori testing. Verification of patient identification for the specimen was done. Estimated blood loss was minimal. Impression: - Z-line irregular, 38 cm from the incisors. Biopsied. - Mild gastritis - Normal examined duodenum. Recommendation: - Discharge patient to home. - Resume previous diet. - Continue present medications. - Await pathology results. Procedure Code(s): --- Professional --- 73508, Esophagogastroduodenoscopy, flexible, transoral; with biopsy, single or multiple CPT copyright 2021 [employer]. All rights reserved. The codes documented in this report are preliminary and upon dish washer review may be revised to meet current compliance requirements. Chele Manriquez DO 06/16/2025 7:21:49 AM This report has been signed electronically. Number of Addenda: 0 Note Initiated On: 06/16/2025 6:38 AM
--- NOTE | 2025-06-16 07:23 | OP.PROVAT_ITS ---
06/16/2025 Tequila Lujan Md Re : Upper GI endoscopy procedure for Marbella Martínez Dear Tai This procedure was performed on Monday, June 16, 2025. My impressions and recommendations are as follows: Impressions : - Z-line irregular, 38 cm from the incisors. Biopsied. - Mild gastritis - Normal examined duodenum. Recommendations : - Discharge patient to home. - Resume previous diet. - Continue present medications. - Await pathology results. My findings are described in the full procedure note, which is enclosed. If I can be of further assistance, please feel free to contact me at . Sincerely, Chele Manriquez, 06/16/2025 7:21:49 AM This report has been signed electronically.
--- NOTE | 2025-06-16 07:26 | OP.COLON_ITS ---
Patient Name: Marbella Martínez Procedure Date: 06/16/2025 7:03 AM Date of : 1970 Age: 54 Procedure: Colonoscopy Indications: Hematochezia, Abnormal CT of the GI tract Providers: Chele Manriquez DO Referring MD: Chele Manriquez DO Medicines: Monitored Anesthesia Care Patient Profile: This is a 54 year old female. Refer to note in patient chart for documentation of history and physical. Patient has symptoms of chronic heartburn. Last Colonoscopy: several years ago. Complications: No immediate complications. Procedure: Pre-Anesthesia Assessment: - Prior to the procedure, a History and Physical was performed, and patient medications and allergies were reviewed. The patient is competent. The risks and benefits of the procedure and the sedation options and risks were discussed with the patient. All questions were answered and informed consent was obtained. Patient identification and proposed procedure were verified by the physician in the pre-procedure area. Mental Status Examination: alert and oriented. Airway Examination: normal oropharyngeal airway and neck mobility. Respiratory Examination: clear to auscultation. CV Examination: normal. Prophylactic Antibiotics: The patient does not require prophylactic antibiotics. Prior Anticoagulants: The patient has taken no anticoagulant or antiplatelet agents except for NSAID medication. ASA Grade Assessment: II - A patient with mild systemic disease. After reviewing the risks and benefits, the patient was deemed in satisfactory condition to undergo the procedure. The anesthesia plan was to use monitored anesthesia care (MAC). Immediately prior to administration of medications, the patient was re-assessed for adequacy to receive sedatives. The heart rate, respiratory rate, oxygen saturations, blood pressure, adequacy of pulmonary ventilation, and response to care were monitored throughout the procedure. The physical status of the patient was re-assessed after the procedure. After I obtained informed consent, the scope was passed under direct vision. Throughout the procedure, the patient's blood pressure, pulse, and oxygen saturations were monitored continuously. The Colonoscope was introduced through the anus and advanced to the cecum, identified by appendiceal orifice and ileocecal valve. The colonoscopy was performed without difficulty. The patient tolerated the procedure well. The quality of the bowel preparation was adequate. The ileocecal valve, appendiceal orifice, and rectum were photographed. Scope In: 7:04:46 AM Scope Withdrawal Time 0 hours 8 minutes 5 seconds Scope Out: 7:16:44 AM Total Procedure Duration Time 0 hours 11 minutes 58 seconds Findings: The perianal and digital rectal examinations were normal. A localized area of mildly erythematous mucosa was found in the recto-sigmoid colon, in the sigmoid colon and in the descending colon. This is consistent with previous ischemic colitis. Biopsies were taken with a cold forceps for histology. Verification of patient identification for the specimen was done. Estimated blood loss was minimal. The exam was otherwise without abnormality on direct and retroflexion views. Impression: - Erythematous mucosa in the recto-sigmoid colon, in the sigmoid colon and in the descending colon. This is consistent with previous ischemic colitis. Biopsied. - The examination was otherwise normal on direct and retroflexion views. Recommendation: - Discharge patient to home. - Resume previous diet. - Continue present medications. - Repeat colonoscopy in 10 years for screening purposes. Procedure Code(s): --- Professional --- 38570, Colonoscopy, flexible; with biopsy, single or multiple CPT copyright 2021 [employer]. All rights reserved. The codes documented in this report are preliminary and upon clinical studies specialist review may be revised to meet current compliance requirements. Chele Manriquez DO 06/16/2025 7:25:27 AM This report has been signed electronically. Number of Addenda: 0 Note Initiated On: 06/16/2025 7:03 AM
--- NOTE | 2025-06-16 07:26 | OP.PROVAT_ITS ---
06/16/2025 Tequila Lujan Md Re : Colonoscopy procedure for Marbella Myrick Tai This procedure was performed on Monday, June 16, 2025. My impressions and recommendations are as follows: Impressions : - Erythematous mucosa in the recto-sigmoid colon, in the sigmoid colon and in the descending colon. This is consistent with previous ischemic colitis. Biopsied. - The examination was otherwise normal on direct and retroflexion views. Recommendations : - Discharge patient to home. - Resume previous diet. - Continue present medications. - Repeat colonoscopy in 10 years for screening purposes. My findings are described in the full procedure note, which is enclosed. If I can be of further assistance, please feel free to contact me at . Sincerely, Chele Manriquez, 06/16/2025 7:25:27 AM This report has been signed electronically.
--- NOTE | 2025-06-16 07:28 | PCM.POST.ANE ---
Anesthesia: Postop Eval I Current Vital Signs Temperature: 97.5 F Pulse Rate: 82 Blood Pressure: 101/64 Respiratory Rate: 16 Pulse Ox: 96 Oxygen Delivery Method: Room Air Assessment Airway patent: Yes Spontaneous unlabored respirations: Yes Mental status: Awake and Calm nausea: No Vomiting: No Anesthesia Complication: No Fluid Hydration Crystalloid volume administer (ml): 700 Total IV fluid infused: 700 Progress Note Anesthesia document: Postop Eval 1 completed: Yes
--- NOTE | 2025-06-16 08:05 | PCM.POSTANE2 ---
Anesthesia Postop Eval I Sum Postop Eval Completion status Anesthesia document: Postop Eval 1 completed: Yes Anesthesia Postop Eval I Summary Anesthesia Postop Eval I Summary: Anesthesia Postop Eval I: Assessment Summary Airway patent Yes 06/16/25 07:28 [email or web address] Spontaneous unlabored Yes 06/16/25 07:28 [email or web address] respirations Mental status Awake,Calm 06/16/25 07:28 [email or web address] nausea No 06/16/25 07:28 [email or web address] Vomiting No 06/16/25 07:28 [email or web address] Anesthesia Postop Eval I: Fluid Summary Crystalloid volume administer 700 06/16/25 07:28 [email or web address] (ml) Colloids volume administered ( ml) Blood Product volume administered (ml) Total IV fluid infused 700 06/16/25 07:28 [email or web address] Anesthesia Postop Eval I: Summary Notes Anesthesia Complication No 06/16/25 07:28 [email or web address] Anesthesia Complication Comment: Post-operative progress note Anesthesia: Postop Eval II Evaluation Mental status: Awake Pain Level: 0 nausea: No Vomiting: No
== END 2025-06-16 07:51 | disposition home or self-care (01) ==
LOC: EN 05:18 → AC 05:19
PROVIDERS: PCP Family Medicine; Referring Provider Family Medicine; Visit Provider Internal Medicine Gastroenterology
PROC: 0DJD8ZZ Inspection of Lower Intestinal Tract, Via Natural or Artificial Opening Endoscopic (ICD-10-PCS; CPT 45378; principal; 2025-06-16 06:25)
DX: K22.70 Barrett's esophagus without dysplasia (principal); K29.70 Gastritis, unspecified, without bleeding; K52.9 Noninfective gastroenteritis and colitis, unspecified; K21.9 Gastro-esophageal reflux disease without esophagitis; Z79.899 Other long term (current) drug therapy
CPT/HCPCS: 45380; 43239; 88305; J2405

== ENCOUNTER 2025-07-10 07:55 | Day surgery (SDC) | payer OTHER, SELFPAY ==
[2025-07-10] VITALS (9 sets, daily range): BP systolic 96–122; BP diastolic 60–79; PULSE 78–90; RESP 16–22; TEMP 36.1–36.7; O2SAT 92–98; BMI 38.2
[2025-07-10] MEDS: Lactated Ringers 1,000 ML 15 ML IV (08:35)
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
--- NOTE | 2025-07-10 09:03 | RAD_ITS ---
PROCEDURE: LUMBAR SPINE 2 OR 3 VIEWS 07/10/2025 REASON FOR EXAM: LT EPIDURAL STEROID INJECTION L4 L5 S1 TECHNIQUE: Procedure Code: RADSPLL Modality: DX Procedure: LUMBAR SPINE 2 OR 3 VIEWS FINDINGS: Intraoperative fluoroscopy was performed. 11.9 seconds of fluoroscopic time. 6.04 mGy. 3 images. See procedure report for full details. RAD/Lumbar Spine 2 or 3 Views IMPRESSION: As above. Reading Location: [id number]
[2025-07-10] MEDS: Lidocaine 1% (5 ml sdv) 5 ML Vial (09:08)
--- NOTE | 2025-07-10 09:16 | PCM.POST.ANE ---
Anesthesia: Postop Eval I Current Vital Signs Temperature: 97.4 F Pulse Rate: 84 Blood Pressure: 105/65 Respiratory Rate: 22 Pulse Ox: 94 Assessment Airway patent: Yes Spontaneous unlabored respirations: Yes nausea: No Vomiting: No Anesthesia Complication: No Fluid Hydration Crystalloid volume administer (ml): 200 Total IV fluid infused: 200 Progress Note Anesthesia document: Postop Eval 1 completed: Yes
--- NOTE | 2025-07-10 09:44 | PCM.OPRPT ---
Operative Report (Standard) Operative Information Date of Procedure: 07/10/25 Pre-Operative Diagnosis: Lumbosacral radiculopathy, lumbosacral spinal stenosis, lumbosacral degenerative disc disease Post-Operative Diagnosis: Lumbosacral radiculopathy, lumbosacral spinal stenosis, lumbosacral degenerative disc disease Surgery/Procedure Performed: Left-sided lumbar transforaminal epidural steroid injection L4-5, L5-S1 under fluoroscopic guidance pulp press tender: No Type of Anesthesia: Local MAC RN Documented Start/Stop Times: Operation Date: 07/10/25 09:30 Case Time Into Pre-Op 07/10/25 08:02 Anesthesia Start 07/10/25 09:03 Into Room 07/10/25 09:03 Procedure Start 07/10/25 09:08 Procedure End 07/10/25 09:11 Anesthesia End 07/10/25 09:14 Out of Room 07/10/25 09:14 Into Recovery 07/10/25 09:17 Out of Recovery 07/10/25 09:39 Into Phase II Recovery 07/10/25 09:40 Procedure Start Time: 09:44 Procedure Stop Time: :44 Select all DRAINS/GRAFTS/IMPLANTS that apply: None Estimated Blood Loss: 1 Specimen collected: No Description of surgery: PROCEDURE PERFORMED: Left-sided lumbar transforaminal epidural steroid injection, L4-5 and L5-S1. ANESTHESIA: MAC BLOOD LOSS: Minimal COMPLICATIONS: None DESCRIPTION OF PROCEDURE: History and physical of today was reviewed. Risks and benefits of the procedure were explained. The patient understood and agreed to proceed. Informed consent was obtained. IV inserted per routine protocol. The patient was taken to the operating room and placed in the prone position with a pillow positioned underneath the abdomen. The left side of the lower back was prepped and draped in a sterile fashion using iodine x3. Under fluoroscopy guidance on oblique view, the L4 through S1 vertebral bodies were visualized. The skin and subcutaneous tissue was anesthetized with approximately 5 mL of 1% lidocaine using a 25-gauge regular needle. Under direct visualization with fluoroscopy at approximately 35-degree angle, starting on the left L4, ending on the left L5, using a 22-gauge 5-inch spinal needle, the needle was advanced via the skin. The tip of the needle was maneuvered and directed towards the inferior and medial gutter of the transverse process at the superiormost aspect of the neural foramen. Once the tip of the needle was at the vicinity of the foramen, after negative aspiration for blood or CSF, a total of 1 mL of contrast was injected in divided doses between both levels to confirm correct placement of the needle as well as medial spread. The confirmation was obtained on AP as well as lateral view. After repeated negative aspiration and confirmation on AP as well as lateral view, a total of 6 mL of preservative-free 0.25% Marcaine with 80 mg of Depo-Medrol was injected in divided doses between both levels. The needles were then removed intact. The patient experienced no sign or symptoms of intrathecal or intravascular injection. The patient experienced no paresthesia. The procedure was completed without any apparent difficulty or any complications. The patient appeared to tolerate it well. Assessment and plan: This is a 54-year-old female with lumbosacral radiculopathy, lumbosacral degenerative disc disease, lumbosacral spinal stenosis, status post left-sided lumbar transforaminal epidural steroid injection L4-5, L5-S1 under fluoroscopic guidance, patient will continue her current medications, patient will follow-up in approximately 2 weeks for reevaluation. Surgical Findings: 0 Complications Complications: No Admit VTE Documentation VTE Present on Admission: No VTE Mechan Device Prophylaxis: None VTE Pharm Prophylaxis ordered?: No
--- NOTE | 2025-07-10 12:02 | POSTOPAN2_ITS ---
Anesthesia Postop Eval I Sum Postop Eval Completion status Anesthesia document: Postop Eval 1 completed: Yes Anesthesia Postop Eval I Summary Anesthesia Postop Eval I Summary: Anesthesia Postop Eval I: Assessment Summary Airway patent Yes 07/10/25 09:22 [email or web address] Spontaneous unlabored Yes 07/10/25 09:22 [email or web address] [email or web address] respirations Mental status nausea No 07/10/25 09:22 SLIPPER [email or web address] Vomiting No 07/10/25 09:22 [email or web address] [email or web address] Anesthesia Postop Eval I: Fluid Summary Crystalloid volume administer 200 07/10/25 09:22 SLIPPER [email or web address] (ml) Colloids volume administered ( ml) Blood Product volume administered (ml) Total IV fluid infused 200 07/10/25 09:22 [email or web address] [email or web address] Anesthesia Postop Eval I: Summary Notes Anesthesia Complication No 07/10/25 09:22 [email or web address] [email or web address] Anesthesia Complication Comment: Post-operative progress note Anesthesia: Postop Eval II Evaluation Mental status: Awake and Calm Pain Level: 1 nausea: No Vomiting: No Complications Anesthesia Complication: No
--- NOTE | 2025-07-10 12:02 | PCM.POSTANE2 ---
Anesthesia Postop Eval I Sum Postop Eval Completion status Anesthesia document: Postop Eval 1 completed: Yes Anesthesia Postop Eval I Summary Anesthesia Postop Eval I Summary: Anesthesia Postop Eval I: Assessment Summary Airway patent Yes 07/10/25 09:22 PIECE WORK [email or web address] Spontaneous unlabored Yes 07/10/25 09:22 PIECE WORK [email or web address] respirations Mental status nausea No 07/10/25 09:22 PIECE WORK [email or web address] Vomiting No 07/10/25 09:22 PIECE WORK [email or web address] Anesthesia Postop Eval I: Fluid Summary Crystalloid volume administer 200 07/10/25 09:22 PIECE WORK [email or web address] (ml) Colloids volume administered ( ml) Blood Product volume administered (ml) Total IV fluid infused 200 07/10/25 09:22 PIECE WORK [email or web address] Anesthesia Postop Eval I: Summary Notes Anesthesia Complication No 07/10/25 09:22 PIECE WORK [email or web address] Anesthesia Complication Comment: Post-operative progress note Anesthesia: Postop Eval II Evaluation Mental status: Awake and Calm Pain Level: 1 nausea: No Vomiting: No Complications Anesthesia Complication: No
== END 2025-07-10 09:55 | disposition home or self-care (01) ==
LOC: SDC 07:57 → AC 08:00
PROVIDERS: PCP Family Medicine; Referring Provider Anesthesiology Pain Medicine; Visit Provider Anesthesiology Pain Medicine
PROC: 3E0S3BZ Introduction of Anesthetic Agent into Epidural Space, Percutaneous Approach (ICD-10-PCS; CPT 64484; principal; 2025-07-10 09:25)
DX: M48.07 Spinal stenosis, lumbosacral region (principal); M51.17 Intervertebral disc disorders with radiculopathy, lumbosacral region
CPT/HCPCS: 64484; 01992; 64483; 72100; J2405